=== PATIENT | female | born 1940 | race Caucasian/White ===

== ENCOUNTER 2023-06-27 08:08 | Inpatient (IN) | payer OTHER, SELFPAY ==
[2023-06-23 10:27] VITALS: BMI 25.0
--- NOTE | 2023-06-23 11:32 | HPS.HSE ---
Family Physician
-
Family Physician: Florecita Valentine
Chief Complaint
-
Paroxysmal atrial fibrillation.
History of Present Illness
The patient is an 83 year old female presenting today for paroxysmal atrial fibrillation. The patient reports intermittent heart palpitations and, more recently, chest pain by her pacemaker insertion site which radiates to her mid upper
back likely secondary to this diagnosis. She has undergone 4 previous cardioversions for her arrhythmia. She is on current pharmacological therapy with Metoprolol Succinate and Propranolol as needed. She takes Pradaxa for oral anticoagulation. She
notes that her current symptoms are greatly interfering with her activities of daily living and are overall impacting her quality of life. She is interested in pursuing a MARIS-guided cardioversion for further arrhythmia management. Once in sinus
rhythm, Dofetilide will be initiated and she will likely undergo an atrial fibrillation ablation in the near future. She denies any current complaints today such as chest pain or shortness of breath at rest, nausea, vomiting, diarrhea,
lightheadedness, dizziness, cough, sore throat, or fever.
Medical History
Past Medical History
Past Medical History: Reports Other
Additional Past Medical History:
1. Paroxysmal atrial fibrillation, status post cardioversion x4; pharmacological therapy with Metoprolol Succinate and Propranolol, oral anticoagulation with Pradaxa.
2. Hypertension.
3. Hyperlipidemia.
4. Coronary artery disease, status post PCI with drug eluting stents to RCA x4 2013.
5. Carotid artery stenosis, status post left carotid endarterectomy, 2016, and right carotid endarterectomy 2016.
6. Peripheral vascular disease.
7. Status post pacemaker insertion 2013.
8. Mild aortic stenosis.
9. Mild tricuspid regurgitation.
10. COPD per records.
11. Bilateral pleural effusion, 05/2022, status post thoracentesis.
12. Renal artery stenosis, status post multiple bilateral renal stents.
13. GERD.
14. Small hiatal hernia.
15. Colon polyps.
16. Primary biliary cirrhosis with mildly elevated AST.
17. 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
18. Right retinal artery occlusion, 09/2018, with residual right eye visual loss.
19. Restless leg syndrome.
20. Mild scoliosis.
21. Cervical degenerative disc disease with radiculopathy.
22. Hypothyroidism.
23. Left sided breast cancer, status post left mastectomy with sentinel node biopsy 12/2012.
24. Squamous cell carcinoma, status post multiple excisions.
25. Anemia of chronic disease.
26. Osteopenia.
27. COVID 19 pneumonia, 03/2022, requiring previous supplemental oxygen.
28. Remote history of tobacco abuse.
Past Surgical History: Reports Other
Additional Past Surgical History:
1. Cardioversion x4.
2. PCI with drug eluting stents to RCA x4.
3. Cardiac catheterization.
4. Pacemaker insertion.
5. Thoracentesis.
6. Left carotid endarterectomy.
7. Right carotid endarterectomy.
8. Left mastectomy with sentinel node biopsy.
9. Temporal artery biospy.
10. Appendectomy.
11. Bilateral tubal ligation.
12. Multiple bilateral renal stents.
13. Multiple squamous cell carcinoma excisions.
14. Bilateral cataract extraction.
15. Colonoscopy x3.
16. Endoscopy.
Social History
Tobacco: Former Smoker (She is a former up to 1 and 1/2 pack per day cigarette smoker who quit tobacco at 30 years old. )
Alcohol: Other (She drinks 1-2 glasses of wine most evenings with dinner. )
Living: Alone (She lives in a 2 story home with a first floor main setup. )
Family History
Family History: Not pertinent
Allergies / Home Medications
Allergy/Medication List:
Home medications:
1. Atorvastatin 80 mg p.o. every evening.
2. Calcium 1200 mg p.o. daily.
3. Cholecalciferol 50 mcg p.o. daily.
4. Pradaxa 150 mg p.o. twice a day.
5. Famotidine 40 mg p.o. twice a day.
6. Furosemide 20 mg p.o. daily.
7. Isosorbide Mononitrate 60 mg p.o. daily.
8. Levothyroxine 112 mcg p.o. daily.
9. Metoprolol Succinate 100 mg p.o. daily.
10. Nifedipine 60 mg p.o. twice a day.
11. Propranolol 20 mg p.o. every 4 hours as needed.
12. Ursodiol 600 mg p.o. daily.
13. Ursodiol 300 mg p.o. at bedtime.
Allergies: Adhesive. Amiodarone. Diltiazem. Hydralazine. Iodinated contrast. Omeprazole. Spironolactone.
Review of Systems
-
A 12 point ROS was completed and negative except as noted: Yes
Physical Exam
Vital Signs
Blood pressure 121/80. Heart rate 82. Respirations 18. Pulse ox 98% on room air.
Height 4 feet, 11 inches. Weight 56.2 kg. BMI 25.0.
Physical Exam
General: Well Developed, Well Nourished and No Apparent Distress
HEENT: NormoCephalic, Moist mucous membranes, Atraumatic and Other (Chronic right eye visual loss. )
Respiratory: Clear
Cardiac: Irregular Rhythm
GI: Soft, Non Tender and Non Distended
Musculoskeletal: Normal Gait & Station
Skin: Warm and Dry
Neuro: AO x 3 and Nonfocal/grossly intact
Laboratory Results
-
DIAGNOSTIC STUDIES as of 06/23/2023: Sodium 141. Potassium 3.7. BUN 22. Creatinine 0.8. Glucose 108. Calcium 9.3. AST 47. ALT 20. Albumin 4.3.
EKG 06/23/2023: Atrial fibrillation with occasional PVCs. T wave abnormality, consider inferolateral ischemia.
Echocardiogram 06/08/2022: Normal biventricular size and systolic function without regional wall motion�abnormality. Severe left atrial enlargement. Small pericardial effusion. Pleural effusion present. Compared to prior study of 05/24/2022, the
pericardial has decreased in size. The patient would undergo thoracentesis.
Impression/Plan
-
IMPRESSION/PLAN:
1. Paroxysmal atrial fibrillation: The patient is in need of a MARIS-guided cardioversion with Dr. Lanre Woodard on 06/27/2023. The benefits and risks of the procedure have been explained to the patient. The patient understands these risks and
wishes to proceed.
[2023-06-23 11:34] LABS: ALT (SGPT) 20 U/L (0-35); AST (SGOT) 47 U/L (14-36); Albumin 4.3 g/dl (3.5-5.0); Alkaline Phosphatase 135 U/L (38-126); Blood Urea Nitrogen 22 mg/dl (7-17); Calcium 9.3 mg/dl (8.4-10.2); Carbon Dioxide 29 mmol/L (22-30); Chloride 105 mmol/L (98-107); Estimated Creatinine Clearance 41 ml/min; Glucose 108 mg/dl (70-99); Potassium 3.7 mmol/L (3.5-5.1); Sodium 141 mmol/L (135-145); Total Bilirubin 0.8 mg/dl (0.2-1.3); Total Protein 8.4 g/dl (6.3-8.2); eGFR > 60.00
--- NOTE | 2023-06-27 09:40 | ITS.CL.CARDI ---
Application Support Lead - Cardioversion
Cardioversion
Procedure Report:
Date of Procedure:
Procedure: Cardioversion
Indication: Symptomatic atrial fibrillation
Performing Physician: Jordon Woodard MD
Technique: The patient was brought to the holding area. Signed informed consent was obtained. A time out was called and performed. The patient was anesthetized by the anesthesia service. Anticoagulation status was reviewed and appropriate. MARIS
revealed no LA appendage thrombus. R2 pads were placed anteriorly and posteriorly. A 200 J synchronized biphasic shock restored normal sinus rhythm without significant bradycardia. There were no complications.
Conclusion: Uncomplicated cardioversion from atrial fibrillation to sinus rhythm.
Recommendation: Routine post cardioversion care. Continue long-term anticoagulation. Admit for Tikosyn load.
--- NOTE | 2023-06-27 09:52 | W.CARD.TIKOS ---
Initiate Tikosyn
-
I verify that the patient has not taken any verapamil (Isoptin/Calan), ketoconazole (Nizoral), cimetidine (Tagamet), trimethoprim (Trimpex), trimethoprim/sulfamethoxazole (Bactrim), megesterol (Megace), prochlorperazine (Compazine),
hydrochlorothiazide (HCTZ), dolutegravir (Tivicay) or any Class I or Class III anti-arrhythmic within the last three days
AND
I verify that the patient has not taken amiodarone within the last THREE months, or that the patient's amiodarone plasma concentration is <0.3 mcg/mL.
Creatinine 0.8 mg/dL (0.6-1.0) 06/23/23 10:37
Estimated Creat Clear 41 ml/min 06/23/23 10:37
I have assessed the baseline QTc interval (using QT for heart rate less than 60 bpm) and deemed the patient is appropriate for Dofetilide therapy. I understand that Tikosyn is contraindicated if the QTc is >440msec (500msec in patients with
ventricular conduction abnormalities).
Baseline QTc (in msec): 440
Reason for Administration with Prolonged QTc: Paced Rhythm
Ordering Physician: Amarjit Metcalf
--- NOTE | 2023-06-27 10:11 | W.PN.CD ---
Addendum entered and electronically signed by Amarjit Metcalf MD 06/27/23 12:54:
I saw and examined the patient.
The LOG SORTING SUPERVISOR's note was reviewed and I agree with the note.
Comment: She tolerated MARIS/DCCV for her episode of persistent AFib. Will initiate dofetilide. Home after 6 doses.
Original Note:
Today's Communication / Plan
-
Dofetilide initiation per protocol
Impression / Plan
-
Background: Latha Godfrey is an 83-year-old female (known to Dr. Metcalf, her primary oracle technical developer), with paroxysmal and persistent atrial fibrillation (on Pradaxa, amiodarone intolerance), PPM, CVA, extensive PAD, CAD (prior complex RCA PCI), mild
aortic stenosis, hypertension, dyslipidemia, GERD, hypothyroidism, CKD3, biliary cirrhosis, and osteopenia who presented for MARIS/DCCV with dofetilide initiation.
Impression/Plan:
Paroxysmal atrial fibrillation
-She missed 2 doses of dabigatran, MARIS without DANIEL clot
-Successful orthodox to sinus rhythm by cardioversion today, 06/27/2023
-Oral Anticoagulation: Dabigatran 150 mg twice daily
-[id number]: Score 7 (HTN, age 75 or more, prior Stroke/TIA, Vascular disease, female gender)
-Initiation of dofetilide, this drug requires intensive monitoring, ECG per protocol
CAD, prior PCI, stable without chest pain
Mild aortic stenosis , peak/mean gradients across the valve are 20/13 mmHg by TTE 02/2022
Hypertension, follow with changes in medical therapy
Dyslipidemia, continue atorvastatin 80 mg daily
Hypothyroidism, on levothyroxine
CKD, stage III, follows with Dr. Morejon in the outpatient setting
Biliary cirrhosis, follows with GI in the outpatient setting
Subjective:
See scanned H&P
Physical Exam
Vital Signs/Labs
06/23/23 10:37
Physical Exam
Constitutional: No acute distress and Comfortable
EENT: Anicteric and Moist mucous membranes
Cardiovascular: Rhythm & rate is regular, S1S2 is normal and Murmur/rub/gallop absent
Respiratory: Respiratory effort normal and Lungs clear to auscul.
GI: Soft, Distention absent, Flat, Non tender and Normal bowel sounds
Neuro/Psych: AO x 3
Other: Skin (warm and dry)
Data Reviewed
-
Date of Service: June 27, 2023
EKG: Report Reviewed by me
Labs: Labs Reviewed by me
Old Records: Reviewed
[2023-06-27 10:45] VITALS: BP 125/90
[2023-06-27] MEDS: TIKOSYN 250 MCG PO ×2 (11:15→21:01)
--- NOTE | 2023-06-27 13:22 | CM ---
Reviewed chart. Met with Mrs. Godfrey to review discharge plans. She states prior to admission she resides alone in a three story home with five steps to enter. She states she has a first floor living arrangement. She states prior to admission she
was independent with ambulation and adls. She states she does not have any DME in the home. She states she has a prescription plan and uses [facility]. Telephone call to her insurance to check if Dofetilide 250 mcg bid is covered. Her co-pay for
one month supply is $ 12.21 and for a 90 day supply her co pay would be $42.96. Reviewed co-pay with her. She will need a three day script to go to [facility] so a supply can go home with her. Will also check with the [facility] to see
if they have Dofetilide in stock. Medical work-up in progress. The discharge plan is to return home when medically stable.
--- NOTE | 2023-06-27 13:32 | PTCARENOTE ---
Patient denies complaints; ambulatory in room. Tolerated first dose of Tikosyn. Monitor shows A Paced with Sinus Rhythm 70's.
[2023-06-27 16:00] VITALS: BP 113/50
[2023-06-27] MEDS: LIPITOR 40 MG PO (18:35)
[2023-06-27 18:43] VITALS: BP 130/69
[2023-06-27] MEDS: PRADAXA 150 MG PO (19:34)
[2023-06-27] MEDS: PROCARDIA XL (EXTENDED RELEASE) 60 MG PO (19:35)
[2023-06-27] MEDS: PEPCID 40 MG PO (19:37)
[2023-06-27 21:05] VITALS: BMI 25.0
[2023-06-27] MEDS: ACTIGALL 300 MG PO (22:08)
[2023-06-27] MEDS: TYLENOL 650 MG PO (22:13)
[2023-06-27 22:55] VITALS: BP 106/45
--- NOTE | 2023-06-27 23:36 | PTCARENOTE ---
Denied any complaints of pain or discomfort. QTc after 2nd dose of Tikosyn was 462. A-Paced on the monitor.
[2023-06-28] VITALS (7 sets, daily range): BP systolic 120–158; BP diastolic 56–71; BMI 25.0
[2023-06-28] MEDS: SYNTHROID 112 MCG PO (06:16)
[2023-06-28] MEDS: LASIX 20 MG PO (08:31)
[2023-06-28] MEDS: PRADAXA 150 MG PO ×2 (08:31→20:42)
[2023-06-28] MEDS: ACTIGALL 600 MG PO (08:31)
[2023-06-28] MEDS: TIKOSYN 250 MCG PO ×2 (08:32→20:42)
[2023-06-28] MEDS: TOPROL XL 50 MG PO (08:32)
[2023-06-28] MEDS: PROCARDIA XL (EXTENDED RELEASE) 60 MG PO ×2 (08:33→20:42)
[2023-06-28] MEDS: VITAMIN D3 (cholecalciferol) 50 MCG PO (08:33)
[2023-06-28] MEDS: PEPCID 40 MG PO ×2 (08:33→20:43)
[2023-06-28] MEDS: OSCAL CAL 500 1000 MG PO (08:40)
[2023-06-28] MEDS: IMDUR (EXTENDED RELEASE) 60 MG PO (08:40)
--- NOTE | 2023-06-28 09:56 | PTCARENOTE ---
Rec'd pt this shift awake and alert in bed. Pt A-paced on monitor, RA, lungs clear. Am meds given. Pt denies CP, denies sob. See worklist for VS/I and O and assessments.
--- NOTE | 2023-06-28 11:25 | W.PN.CD ---
Today's Communication / Plan
-
Continue Tikosyn with teletry/ekg.
Home after 6th dose
Impression / Plan
-
Background: Latha Godfrey is an 83-year-old female (known to Dr. Metcalf, her primary senior business development manager), with paroxysmal and persistent atrial fibrillation (on Pradaxa, amiodarone intolerance), PPM, CVA, extensive PAD, CAD (prior complex RCA PCI), mild
aortic stenosis, hypertension, dyslipidemia, GERD, hypothyroidism, CKD3, biliary cirrhosis, and osteopenia who presented for MARIS/DCCV with dofetilide initiation.
Impression/Plan:
Paroxysmal atrial fibrillation
-She missed 2 doses of dabigatran, MARIS without DANIEL clot
-Successful anglican to sinus rhythm by cardioversion today, 06/27/2023
-Oral Anticoagulation: Dabigatran 150 mg twice daily
-[id number]: Score 7 (HTN, age 75 or more, prior Stroke/TIA, Vascular disease, female gender)
-Initiation of dofetilide, this drug requires intensive monitoring, ECG per protocol
- Tolerating Tikosyn so far, EKG and tele good
CAD, prior PCI, stable without chest pain
Mild aortic stenosis , peak/mean gradients across the valve are 20/13 mmHg by TTE 02/2022
Hypertension, follow with changes in medical therapy
Dyslipidemia, continue atorvastatin 80 mg daily
Hypothyroidism, on levothyroxine
CKD, stage III, follows with Dr. Morejon in the outpatient setting
Biliary cirrhosis, follows with GI in the outpatient setting
Subjective:
No cp or dyspnea
Physical Exam
Vital Signs/Labs
Vital Signs
Temp Pulse Resp BP Pulse Ox
98.1 F 75 16 143/56 96
06/28/23 08:04 06/28/23 08:33 06/28/23 08:04 06/28/23 08:33 06/28/23 08:04
01/26/24 10:37
Physical Exam
Constitutional: No acute distress
EENT: Anicteric
Cardiovascular: Rhythm & rate is regular and Pedal edema is absent
Respiratory: Respiratory effort normal and Lungs clear to auscul.
GI: Soft and Distention absent
Neuro/Psych: AO x 3
Data Reviewed
-
Date of Service: June 28, 2023
--- NOTE | 2023-06-28 12:48 | CM ---
Telephone call to [facility] to check if Dofetilide 250 mcg are in stock. [facility] has it in stock. She will need a three day script for [facility] day supple home with her. Prior to admission she
resides alone in a three story home with five steps to enter. She has a first floor living arrangement. Prior to admission she was independent with ambulation and adls. She does not have any DME. She has a prescription plan and uses [facility].
Medial work-up in progress. The discharge plan is to return home when medically stable.
[2023-06-28] MEDS: LIPITOR 40 MG PO (18:15)
[2023-06-28] MEDS: LIPITOR PO (18:15)
[2023-06-28] MEDS: ACTIGALL 300 MG PO (20:43)
--- NOTE | 2023-06-29 07:45 | W.PN.CD ---
Addendum entered and electronically signed by Antelmo Pinto MD 06/29/23 08:28:
Discussed with Dr Metcalf, OK to give last dose early and will give last dose at around 6 pm this evening and d/c thereafter.
Original Note:
Today's Communication / Plan
-
Home after 6th dose, however, late dose at 9 pm and ECG thereafter may need to be tomorrow AM
Impression / Plan
-
Background: Latha Godfrey is an 83-year-old female (known to Dr. Metcalf, her primary fireman), with paroxysmal and persistent atrial fibrillation (on Pradaxa, amiodarone intolerance), PPM, CVA, extensive PAD, CAD (prior complex RCA PCI), mild
aortic stenosis, hypertension, dyslipidemia, GERD, hypothyroidism, CKD3, biliary cirrhosis, and osteopenia who presented for MARIS/DCCV with dofetilide initiation.
Impression/Plan:
Paroxysmal atrial fibrillation
-She missed 2 doses of dabigatran, MARIS without DANIEL clot
-Successful buddhist to sinus rhythm by cardioversion today, 06/27/2023
-Oral Anticoagulation: Dabigatran 150 mg twice daily
-[id number]: Score 7 (HTN, age 75 or more, prior Stroke/TIA, Vascular disease, female gender)
-Initiation of dofetilide, this drug requires intensive monitoring, ECG per protocol
- Tolerating Tikosyn so far, EKG and tele good
CAD, prior PCI, stable without chest pain
Mild aortic stenosis , peak/mean gradients across the valve are 20/13 mmHg by TTE 02/2022
Hypertension, follow with changes in medical therapy
Dyslipidemia, continue atorvastatin 80 mg daily
Hypothyroidism, on levothyroxine
CKD, stage III, follows with Dr. Morejon in the outpatient setting
Biliary cirrhosis, follows with GI in the outpatient setting
Subjective:
Feeling good today, home after 6th dose
Physical Exam
Vital Signs/Labs
Vital Signs
Temp Pulse Resp BP Pulse Ox
98 F 70 17 158/59 95
06/29/23 04:00 06/29/23 06:00 06/28/23 23:03 06/28/23 23:03 06/28/23 23:03
06/28/23 06/29/23 06/30/23
06:59 06:59 06:59
Actual Weight 123 lb 14.397 oz
06/23/23 10:37
Physical Exam
Constitutional: No acute distress
EENT: Anicteric
Cardiovascular: Rhythm & rate is regular and Pedal edema is absent
Respiratory: Respiratory effort normal and Lungs clear to auscul.
GI: Soft
Neuro/Psych: AO x 3
Data Reviewed
-
Date of Service: June 29, 2023
EKG: Tracing Personally Visualized and interpreted
[2023-06-29 08:00] VITALS: BMI 25.0
[2023-06-29] MEDS: SYNTHROID 112 MCG PO (08:21)
[2023-06-29 08:24] VITALS: BP 146/60
[2023-06-29] MEDS: TIKOSYN 250 MCG PO ×2 (08:58→18:02)
[2023-06-29] MEDS: LASIX 20 MG PO (08:58)
[2023-06-29] MEDS: ACTIGALL 600 MG PO (08:58)
[2023-06-29] MEDS: PEPCID 40 MG PO ×2 (08:58→19:55)
[2023-06-29] MEDS: PRADAXA 150 MG PO ×2 (08:58→19:52)
[2023-06-29] MEDS: PROCARDIA XL (EXTENDED RELEASE) 60 MG PO ×2 (08:58→19:52)
[2023-06-29] MEDS: OSCAL CAL 500 1000 MG PO (08:59)
[2023-06-29] MEDS: TOPROL XL 50 MG PO (09:00)
[2023-06-29] MEDS: VITAMIN D3 (cholecalciferol) 50 MCG PO (09:00)
[2023-06-29] MEDS: IMDUR (EXTENDED RELEASE) 60 MG PO (09:01)
--- NOTE | 2023-06-29 09:07 | CM ---
Reviewed chart. Met with Mrs. Godfrey to review discharge plans. She states she maybe able to go home soon. Reviewed with her the three day supply of Dofetilide to go home with her. Will need a three day script to go to [facility]. Prior to
admission she resides alone in a three story home with five steps to enter. She has a first floor set-up. Prior to admission she was independent with ambulation and adls. She does not have any DME in the home. She has a prescription plan and uses
[facility]. Medical work-up in progress. The discharge plan is to return home when medically stable.
[2023-06-29 12:00] VITALS: BP 106/49
[2023-06-29 15:27] VITALS: BP 126/62
--- NOTE | 2023-06-29 15:30 | W.DS.TRANS ---
DC Summary - Manager Rental
-
Discharge Instructions:
Sleep Apnea Risk Low
Discharge Diagnosis/Procedures Atrial fibrillation
Procedure: MARIS/cardioversion
Antiarrhythmic medication initiation (Dofetilide
)
Diet Low Cholesterol,2 Gram Sodium
Activity As tolerated
Driving Restrictions As prior to admission
Instructions:
Stand-Alone Forms:
Changes to Home Medications: Yes
Discharge Medications:
DC Medications w/original date entered in [employer]
nifedipine 60 mg tablet,extended release 60 mg PO BID Blood pressure 06/06/16
ursodiol 300 mg capsule 300 mg PO HS Urinary issue 01/23/17
ursodiol 300 mg capsule 600 mg PO DAILY Urinary issue 01/23/17
famotidine 40 mg tablet 40 mg PO BID Gastrointestinal issue 06/06/21
dabigatran etexilate 150 mg capsule (Pradaxa) 150 mg PO BID #60 caps 08/04/21
isosorbide mononitrate 60 mg tablet,extended release 24 hr 60 mg PO DAILY CHEST PAIN 05/18/22
furosemide 20 mg tablet 20 mg PO DAILY edema #30 tabs 05/28/22
metoprolol succinate 100 mg tablet,extended release 24 hr 100 mg PO DAILY #30 tabs 05/28/22
calcium 600 mg capsule 1,200 mg PO DAILY Supplement 06/21/23
cholecalciferol (vitamin D3) 50 mcg (2,000 unit) capsule (Vitamin D3) 50 mcg PO DAILY Supplement 06/21/23
levothyroxine 112 mcg tablet 112 mcg PO DAILY Thyroid 06/21/23
propranolol 20 mg tablet 20 mg PO Q4HPRN PRN a fib 06/23/23
atorvastatin 40 mg tablet 40 mg PO QPM 06/29/23
dofetilide 250 mcg capsule 250 mcg PO Q12 #60 caps 06/29/23
Home Medication Changes
dofetilide added
Pending Results: No
[2023-06-29] MEDS: LIPITOR 40 MG PO (18:02)
--- NOTE | 2023-06-29 19:14 | PTCARENOTE ---
Received 6th dose of Tikosyn at 6pm as ordered. EKG due at 1999.
[2023-06-29 19:30] VITALS: BP 136/76
[2023-06-29] MEDS: ACTIGALL 300 MG PO (19:52)
--- NOTE | 2023-06-29 20:15 | PTCARENOTE ---
1999 EKG performed for QTC monitoring s/p Tikosyn loading, QTC 486. freight caller glass etcher helper notified via [employer] a for d/c. Paperwork printed, signed, IV taken out and awaiting ride from daughter at this time.
== END 2023-06-29 20:30 | disposition home or self-care (01) | DRG 310 ==
LOC: IVU 08:08
PROVIDERS: ADMITTING PHYSICIAN Internal Medicine Cardiovascular Disease; ATTENDING PHYSICIAN Internal Medicine Cardiovascular Disease; FAMILY PHYSICIAN Family Medicine
PROC: 3E053RZ Introduction of Antiarrhythmic into Peripheral Artery, Percutaneous Approach (ICD-10-PCS; 2023-06-27)
PROC: B24BZZ4 Ultrasonography of Heart with Aorta, Transesophageal (ICD-10-PCS; 2023-06-27)
PROC: 5A2204Z Restoration of Cardiac Rhythm, Single (ICD-10-PCS; 2023-06-27)
DX: I48.19 Other persistent atrial fibrillation (principal); Z95.0 Presence of cardiac pacemaker; E78.5 Hyperlipidemia, unspecified; I12.9 Hypertensive chronic kidney disease with stage 1 through stage 4 chronic kidney disease, or unspecified chronic kidney disease; N18.30 Chronic kidney disease, stage 3 unspecified; I25.10 Atherosclerotic heart disease of native coronary artery without angina pectoris; I73.9 Peripheral vascular disease, unspecified; K21.9 Gastro-esophageal reflux disease without esophagitis; Z87.891 Personal history of nicotine dependence; D63.1 Anemia in chronic kidney disease; Z86.73 Personal history of transient ischemic attack (TIA), and cerebral infarction without residual deficits; J44.9 Chronic obstructive pulmonary disease, unspecified; E03.9 Hypothyroidism, unspecified; Z79.01 Long term (current) use of anticoagulants
CPT/HCPCS: 36415; 80053; 92960; 93005; 93312; 93320; 93325

== ENCOUNTER 2023-08-21 15:12 | Outpatient (RCR) | payer OTHER, SELFPAY | END 2023-08-21 23:59 | disposition home or self-care (01) | LOC: RPT 15:12 | PROVIDERS: ATTENDING PHYSICIAN Family Medicine | DX: R53.81 Other malaise (principal); Z73.6 Limitation of activities due to disability; R26.2 Difficulty in walking, not elsewhere classified; M62.81 Muscle weakness (generalized); R26.81 Unsteadiness on feet; M25.512 Pain in left shoulder; M25.561 Pain in right knee | CPT/HCPCS: 97110; 97112; 97163 ==

== ENCOUNTER → 2023-08-24 10:30 | Outpatient (REF) | payer OTHER, SELFPAY | LOC: RAD 10:30 | PROVIDERS: ATTENDING PHYSICIAN Internal Medicine Gastroenterology; FAMILY PHYSICIAN Family Medicine | DX: M85.80 Other specified disorders of bone density and structure, unspecified site (principal); K74.3 Primary biliary cirrhosis | CPT/HCPCS: 76700; 77080 ==

== ENCOUNTER 2023-09-26 17:11 | Outpatient (RCR) | payer OTHER, SELFPAY | END 2023-09-26 23:59 | disposition home or self-care (01) | LOC: RPT 17:11 | PROVIDERS: ATTENDING PHYSICIAN Family Medicine | DX: R26.2 Difficulty in walking, not elsewhere classified (principal); R53.81 Other malaise; M62.81 Muscle weakness (generalized); Z73.6 Limitation of activities due to disability | CPT/HCPCS: 97010; 97110; 97112 ==

== ENCOUNTER → 2023-10-18 15:21 | Outpatient (REF) | payer OTHER, SELFPAY | LOC: HWRAD 15:21 | PROVIDERS: ATTENDING PHYSICIAN Family Medicine | DX: S09.90XA Unspecified injury of head, initial encounter (principal); Z79.01 Long term (current) use of anticoagulants; R07.81 Pleurodynia; M54.2 Cervicalgia; M54.9 Dorsalgia, unspecified | CPT/HCPCS: 70450; 71111; 72050; 72072 ==

== ENCOUNTER → 2023-11-06 10:38 | Outpatient (REF) | payer OTHER, SELFPAY | LOC: RAD 10:38 | PROVIDERS: ATTENDING PHYSICIAN Surgery Vascular Surgery; FAMILY PHYSICIAN Family Medicine | DX: I65.23 Occlusion and stenosis of bilateral carotid arteries (principal) | CPT/HCPCS: 70496; 70498; Q9967 ==

== ENCOUNTER → 2023-11-21 13:35 | Outpatient (REF) | payer OTHER, SELFPAY | LOC: RAD 13:35 | PROVIDERS: ATTENDING PHYSICIAN Surgery Vascular Surgery; FAMILY PHYSICIAN Family Medicine | DX: I73.9 Peripheral vascular disease, unspecified (principal) | CPT/HCPCS: 93922; 93925 ==

== ENCOUNTER 2023-12-06 19:13 | Observation (INO) | payer OTHER, SELFPAY ==
[2023-12-06] VITALS (16 sets, daily range): BP systolic 96–154; BP diastolic 53–106; PULSE 69–75
[2023-12-06 14:16] LABS: Urine Albumin Negative (Neg - Trace); Urine Bilirubin Negative (Negative); Urine Character Clear (Clear); Urine Color Yellow; Urine Glucose Negative (Negative); Urine Ketone Negative (Negative); Urine Leukocyte Trace (Negative); Urine Nitrite Negative (Negative); Urine Occult Blood Negative (Negative); Urine Urobilinogen Negative (Neg - 1+)
--- NOTE | 2023-12-06 14:17 | ED.GENMED ---
History of Present Illness
<Moriah Garcia NP - Last Filed: 12/06/23 20:27>
General
Chief Complaint: Dizziness
Source: patient
Exam Limitations: none
Time Seen by Provider: 12/06/23 13:58
Nursing documentation reviewed up to this point in time: agreed with
History of Present Illness
History of Present Illness:
Patient to ED with complaint of sudden onset brief dizziness this AM. Afterwards she felt like her legs were both weak and heavy. SHe had another brief episode of dizziness and then noted difficulty walking due to weakness in her legs. Reports
RLE is worse than left. Still reports weakness but is improved from onset. NO fever/chills, recent illness. Denies headache, vision changes. Brought to ED by daughter for eval.
Past History
<Moriah Garcia NP - Last Filed: 12/06/23 20:27>
Past History
ED Past Medical History: Arrthythmia (Atrial fib), CAD, GERD, HTN, Hypercholesterolemia, Hypothyroidism and Other (Gastritis, breast cancer with left mastectomy)
ED Past Surgical History: Other (Mastectomy L)
Social History
Tobacco: Former smoker
Alcohol: Daily
Drug: None
Personal: Other
Living: alone
Employment: Retired
Family History
Family History: Other
Review of Systems
<Moriah Garcia CRIB CLERK - Last Filed: 12/06/23 20:27>
Review of Systems
Allergies reviewed?: Yes
All Other Systems: ROS reviewed and negative except as documented in HPI and ROS
Constitutional: Reports no symptoms
EENT: Reports no symptoms
Respiratory: Reports no symptoms
Cardiac: Reports no symptoms
ABD/GI: Reports no symptoms
Musculoskeletal: Reports no symptoms
Skin: Reports no symptoms
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
Psychiatric: Reports no symptoms
Phy Exam
<Moriah Garcia NP - Last Filed: 12/06/23 20:27>
General Physical Exam
General Presentation: well appearing
General age: appears stated age
General Skin: warm
General Habitus: normal
Cardiovascular Exam
Cardiovascular Exam: regular rate/rhythm and no edema
Pulmonary Exam
Pulmonary Exam: lungs clear and no respiratory distress
Gastrointestinal Exam
Gastrointestinal Exam: normal bowel sounds and non tender
Neurological Exam
Neurological Exam: alert, oriented x3, CN II-XII intact, no motor deficits, no sensory deficits and speech normal
NIH Stroke Score
Level of Consciousness: 0 - Alert
LOC questions: 0-Answers both correctly
LOC Commands: 0-Performs both correctly
Best Gaze: 0-Normal
Visual Marques: 0=Normal, no visual loss
Facial palsy: 0=Normal, symmetrical
Motor - Right Arm: 0=No drift 10 seconds
Motor - Left Arm: 0=No drift 10 seconds
Motor - Right Le-Drift < 5 seconds
Motor - Left Le-No drift 5 seconds
Limb Ataxia: 0-Absent
Sensation: 0-Normal
Best Language: 0-No aphasia
Dysarthria: 0-Normal
Extinction and Inattention: 0-No abnormality
Total Score:: 1
Musculoskeletal Exam
Musculoskeletal Exam: full ROM and neuro vasc intact
Skin Exam
Skin Exam: normal color, warm/dry and no rash
Psychiatric Exam
Psychiatric Exam: normal mood/affect
<Amarjit Gallardo MD - Last Filed: 12/06/23 14:36>
NIH Stroke Score
Total Score:: 1
Course
<Moriah Garcia NP - Last Filed: 12/06/23 20:27>
Orders/Labs/Results
Orders:
Orders
12/06/23 13:37
ECG [Electrocardiogram (*1)] Urgent
Reason for Study: Vertigo / Dizzy
EKG- Treatment ONCE
12/06/23 14:09
UA Reflex to Culture [Urinalysis Reflex To Culture] Urgent
Date Specimen was Collected: 12/06/23
Time Specimen was Collected: 14:00
Urine Microscopic Reflex Cult Urgent
12/06/23 14:14
Cardiovascular Evaluation Urgent
Complete Blood Count/With Diff Urgent
Comprehensive Metabolic Panel Urgent
Glycohemoglobin (HgbA1c) Urgent
12/06/23 14:29
CT Head W/o Iv Contrast Urgent
Comment:
Reason For Exam: R weakness
12/06/23 14:36
Interrogate Pacemaker- Treatment ONCE
12/06/23 Dinner
Cholesterol Lowering
At Your Request: Full Participation
12/06/23 15:25
Orthostatic Vital Signs As Directed
Orthostatic VS Frequency: BID
Comment: please wait 3 minutes after each position change before checking bp
12/06/23 16:03
Add On- LAB Routine
Tests Added?: folate, ferritin, TSH reflex, B12, lipid panel, hbA1c
12/06/23 16:41
Ferritin Urgent
Folate Urgent
TSH Reflex To Free T4 Urgent
Vitamin B12 Urgent
12/06/23 18:33
Admit/Transfer Patient As Directed
Co-Sign Provider:
Level of Care: Observation services
Assign to:: Telemetry
Physician / Group: aris milan
Diagnosis: dizziness lef weakness concern tis vs orthostasis
Reason for Telemetry: CVA/TIA
Date to Stop Telemetry: 12/09/23
Time to Stop Telemetry: 11:00
Reason for Hospitalization: dizziness lef weakness concern tis vs orthostasis
Code Status As Directed
Resuscitation Status: Full Code
NEUROLOGY CONSULT Routine
Consulting Provider: Xavier Bonilla
Was physician already notified: Yes
Reason for consult: leg weakness
12/06/23 20:00
Dabigatran Etexilate Mesylate [Pradaxa] 150 mg PO BID
Dofetilide [Tikosyn] 250 mcg PO Q12
12/09/23 11:00
DC Protocol for Telemetry ONCE
Abnormal Lab Results
12/06/23 12/06/23
14:09 14:14
MCHC 32.9 L g/dL
(33.0-37.0)
RDW 14.6 H %
(11.5-14.5)
Absolute Monos (auto) 1.8 H 10^3/uL
(0.1-0.6)
Lymphocytes % 17.7 L %
(20.5-51.1)
Monocytes % 18.1 H %
(1.7-9.3)
BUN 22 H mg/dl
(7-17)
Glucose 107 H mg/dl
(70-99)
AST 39 H U/L
(14-36)
Alkaline Phosphatase 168 H U/L
(38-126)
Leukocyte Esterase Rfl Trace A
(Negative)
12/06/23 14:14
12/06/23 14:14
Vital Signs
Initial and Last Documented VS:
Initial Vital Signs
Temp Pulse Resp BP Pulse Ox
98.3 F 74 18 136/106 96
12/06/23 13:31 12/06/23 13:31 12/06/23 13:31 12/06/23 13:31 12/06/23 13:31
Last Documented Vital Signs
Temp Pulse Resp BP Pulse Ox
98.3 F 71 15 154/54 96
12/06/23 13:31 12/06/23 20:00 12/06/23 20:00 12/06/23 20:00 12/06/23 20:00
<Amarjit Gallardo MD - Last Filed: 12/06/23 14:36>
Orders/Labs/Results
Orders:
Orders
12/06/23 13:37
ECG [Electrocardiogram (*1)] Urgent
Reason for Study: Vertigo / Dizzy
EKG- Treatment ONCE
12/06/23 14:09
UA Reflex to Culture [Urinalysis Reflex To Culture] Urgent
Date Specimen was Collected: 12/06/23
Time Specimen was Collected: 14:00
Urine Microscopic Reflex Cult Urgent
12/06/23 14:14
Cardiovascular Evaluation Urgent
Complete Blood Count/With Diff Urgent
Comprehensive Metabolic Panel Urgent
Glycohemoglobin (HgbA1c) Urgent
12/06/23 14:29
CT Head W/o Iv Contrast Urgent
Comment:
Reason For Exam: R weakness
12/06/23 14:36
Interrogate Pacemaker- Treatment ONCE
12/06/23 Dinner
Cholesterol Lowering
At Your Request: Full Participation
12/06/23 15:25
Orthostatic Vital Signs As Directed
Orthostatic VS Frequency: BID
Comment: please wait 3 minutes after each position change before checking bp
12/06/23 16:03
Add On- LAB Routine
Tests Added?: folate, ferritin, TSH reflex, B12, lipid panel, hbA1c
12/06/23 16:41
Ferritin Urgent
Folate Urgent
TSH Reflex To Free T4 Urgent
Vitamin B12 Urgent
12/06/23 18:33
Admit/Transfer Patient As Directed
Co-Sign Provider:
Level of Care: Observation services
Assign to:: Telemetry
Physician / Group: aris milan
Diagnosis: dizziness lef weakness concern tis vs orthostasis
Reason for Telemetry: CVA/TIA
Date to Stop Telemetry: 12/09/23
Time to Stop Telemetry: 11:00
Reason for Hospitalization: dizziness lef weakness concern tis vs orthostasis
Code Status As Directed
Resuscitation Status: Full Code
NEUROLOGY CONSULT Routine
Consulting Provider: Xavier Bonilla
Was physician already notified: Yes
Reason for consult: leg weakness
12/06/23 20:00
Dabigatran Etexilate Mesylate [Pradaxa] 150 mg PO BID
Dofetilide [Tikosyn] 250 mcg PO Q12
12/09/23 11:00
DC Protocol for Telemetry ONCE
Abnormal Lab Results
12/06/23 12/06/23
14:09 14:14
MCHC 32.9 L g/dL
(33.0-37.0)
RDW 14.6 H %
(11.5-14.5)
Absolute Monos (auto) 1.8 H 10^3/uL
(0.1-0.6)
Lymphocytes % 17.7 L %
(20.5-51.1)
Monocytes % 18.1 H %
(1.7-9.3)
BUN 22 H mg/dl
(7-17)
Glucose 107 H mg/dl
(70-99)
AST 39 H U/L
(14-36)
Alkaline Phosphatase 168 H U/L
(38-126)
Leukocyte Esterase Rfl Trace A
(Negative)
12/06/23 14:14
12/06/23 14:14
Vital Signs
Initial and Last Documented VS:
Initial Vital Signs
Temp Pulse Resp BP Pulse Ox
98.3 F 74 18 136/106 96
12/06/23 13:31 12/06/23 13:31 12/06/23 13:31 12/06/23 13:31 12/06/23 13:31
Last Documented Vital Signs
Temp Pulse Resp BP Pulse Ox
98.3 F 71 15 154/54 96
12/06/23 13:31 12/06/23 20:00 12/06/23 20:00 12/06/23 20:00 12/06/23 20:00
<Moriah Garcia NP - Last Filed: 12/06/23 20:27>
*Critical Care Note
Total Time (30-74mins, 75-104mins- exclusive of procedures): Not Applicable
<Moriah Garcia NP - Last Filed: 12/06/23 20:27>
Update Note
Update Note:
Patient to ED wtih complaint of 2 episodes of brief dizziness associated with weakness to BLE R>L. +drift RLE on initial exam. Having difficulty walking initially. History ov CVA in past. Symptoms began to resolve on arrival to ED and is now
symptom free. CT and labs reviewed. Case discussedwith Dr. Gallardo who also evaluated this patient. Patient also seen by Dr. Bonilla, no CVA. Normal pressure hyrdrocephaly. Patient continues to be unsteady with gait. Will admit to hospitalist for
TIA, observation.
ED Attending Note
<Moriah Garcia NP - Last Filed: 12/06/23 20:27>
-
Portions of this chart may have been created with voice recognition software.� Occasional wrong word or��sound alike� substitutions may have occurred due to the inherent limitations of voice recognition software.
<Amarjit Gallardo MD - Last Filed: 12/06/23 14:36>
ED Attending Note
Patient seen and examined by attending physician: Yes
ED Attending Note:
I have seen and evaluated the patient with a [id number] encounter. I have spoken to the advance practicer provider and involved in the medical history, the physical exam, medical decision making.
Evaluation and management service: agree unless noted differently below.
Results interpretation: agree unless noted differently below.
Focused HPI: 83-year-old female with a past medical history as documented notable for atrial fibrillation on Pradaxa, hypertension, hyperlipidemia, TIA/CVA, COPD who presents to the emergency room with her daughter for evaluation of dizziness and
leg weakness. Patient reports that she woke up this morning and was in her normal state of health. She says that she went downstairs around 8:30 AM to make herself some coffee. She says that while she was making herself coffee she started to feel
dizzy/off balance. She says that this feeling was quite intense and lasted for about 30 seconds and then seemed to resolve. She says that she sat down and was doing some work (she says organizing manuscript) and was sitting there for about 2 hours
and when she went to get up she felt that her legs were weak�at first she felt both legs were weak but then she felt symptoms seem to be much worse on the right side. She says dizziness returned and she once felt very off balance. Symptoms were
not improving and ultimately she called EMS to come to the hospital for assessment. She has not noticed any weakness or numbness in the arms. She does have some chronic loss of vision in the right eye from prior stroke/arterial occlusion but no
acute change in her vision. No speech change or facial droop noted. She denies any headache. Denies any palpitations or chest pain. She does note that she had recent workup for vascular disease with Dr. Veloz which included a CT of the neck that
showed complete occlusion of her right carotid artery.
Physical exam: Awake alert oriented x 3 and quite pleasant. Mildly hypertensive but otherwise normal vitals. She has vision loss right eye left lower visual field which she says is chronic, visual marques otherwise intact. Pupils equal round and
reactive to light bilaterally. Extraocular movements intact. Cranial nerves otherwise intact 2 through 12. She has no limb ataxia. Speech is fluid with no dysarthria or aphasia. She does have some pronator drift in the right upper extremity and
has some slight drift in the right lower extremity as well.
Medical Decision Makin-year-old female presents for evaluation of dizziness and leg weakness as described above. Onset at 8:30 AM. Hypertensive but otherwise normal vitals, exam as above. NIH stroke scale would be 2. Stroke alert called.
Will send for CT head. Check labs including a CBC and a CMP. Check an EKG. Would not be a candidate for TNK as she is both on anticoagulants (Pradaxa) and outside window for TNK. Neurology at bedside assessing. Anticipate admission with concern
for acute CVA.
Discharge Plan
Departure
Patient Disposition: Admit
Date of Disposition: 12/06/23
Time of Disposition: 17:40
Presentation/result/management discussed w/ accepting MD/DO: Hospitalist
Condition: Fair
Covid-19: Not Applicable
Discharge Problem:
TIA (transient ischemic attack)
Interventions
Interventions:
*Risk Screen - Suicide Last Done: 12/06/23 13:53
*General Assessment Last Done: 12/06/23 13:53
*Neglect/Abuse Screening Last Done: 12/06/23 13:53
ED- Fall Risk Assessment Last Done: 12/06/23 13:53
*ED COVID-19 Vaccine History Last Done: 12/06/23 13:53
ED- Neurological Assessment Last Done: 12/06/23 14:28
ED- Cardiac Assessment Last Done: 12/06/23 13:53
ED Swallowing Screen Last Done: 12/06/23 17:20
[2023-12-06 14:35] LABS: % Basophils 1.1 % (0-2); % Eosinophils 1.6 % (0-6); % Immature Granulocytes 0.3 % (0-0.5); % Lymphocytes 17.7 % (20.5-51.1); % Monocytes 18.1 % (1.7-9.3); % Neutrophils 61.2 % (42.2-75.2); Absolute Basophils 0.1 10^3/uL (0-0.2); Absolute Eosinophils 0.2 10^3/uL (0-0.7); Absolute Lymphocytes 1.7 10^3/uL (1.2-3.4); Absolute Monocytes 1.8 10^3/uL (0.1-0.6); Hematocrit 37.7 % (37.0-47.0); Hemoglobin 12.4 g/dL (12.0-16.0); Mean Corp Hgb Conc. 32.9 g/dL (33.0-37.0); Mean Corpuscular Hgb 29.1 pg (27.0-31.0); Mean Corpuscular Volume 88.5 fL (81.0-99.0); Mean Platelet Volume 10.3 fL (7.4-10.4); Nucleated Red Blood Cells % 0 %; Platelet Count 269 10^3/uL (130-400); Red Blood Cell Count 4.26 10^6/uL (4.20-5.40); Red Cell Dist. Width 14.6 % (11.5-14.5); White Blood Cell Count 9.8 10^3/uL (4.8-10.8)
[2023-12-06 14:41] LABS: Urine Red Blood Cell 0-2 /HPF (0-2); Urine Urothelial Cell 0-2 /LPF (FEW); Urine White Cell 0-2 /HPF (0-5)
[2023-12-06 15:24] LABS: ALT (SGPT) 17 U/L (0-35); AST (SGOT) 39 U/L (14-36); Albumin 4.5 g/dl (3.5-5.0); Alkaline Phosphatase 168 U/L (38-126); Blood Urea Nitrogen 22 mg/dl (7-17); Calcium 10.1 mg/dl (8.4-10.2); Carbon Dioxide 27 mmol/L (22-30); Chloride 103 mmol/L (98-107); Glucose 107 mg/dl (70-99); Potassium 4.2 mmol/L (3.5-5.1); Sodium 141 mmol/L (135-145); Total Bilirubin 0.7 mg/dl (0.2-1.3); eGFR > 60.00
--- NOTE | 2023-12-06 15:25 | CON.NEURO4 ---
Documented by User: Allyson Laws NP 12/06/23 16:05
Consultation - Neurology 4
-
CONSULTING PHYSICIAN: Xavier Bonilla MD
REFERRING PHYSICIAN: ER/JANET Crow
DICTATED BY: JANET Wilkins
DATE/TIME OF REQUEST: 12/06/23
DATE/TIME OF CONSULTATION: 12/06/23
Reason for Consultation: Stroke Alert
History of Present Illness:
This is an 83-year-old left-handed female who has presented to the hospital with report of dizziness and bilateral leg heaviness. Patient was previously evaluated by our inpatient Neurology service in May 2021 as a stroke alert for report of
headache, left-sided weakness, slurred speech, and left facial drooping. She was on apixaban at that time and her dose had been decreased to 2.5mg BID one month earlier. CT head on 06/06/21 was suggestive of a small subacute right parietal lobe
ischemic infarct. She had no residual deficits following that event and was continued on Eliquis. She presented here again on 07/31/21 with report of severe dysarthria and left-sided weakness. MRI brain was obtained on 08/03/21 and demonstrates multiple
subacute infarcts in the right frontoparietal junction. She was switched from Eliquis to Pradaxa at that time. She is still followed by our outpatient Neurology service and she is followed by Vascular Surgery as an outpatient for chronic R ICA
occlusion that has been stable.
From last outpatient evaluation by Neurology JANET Zamora on 04/10/23:
'Patient is an 82 year old woman left handed woman with history of atrial fibrillation, small right MCA ischemic stroke occuring on Apixaban therapy subsequently switched to Dabigatran here for neurology follow up.�������
She relates she was diagnosed with left forearm and hand symptoms due to cervical radiculopathy.�������
She reports she feels unsteady with her feet and body. She thinks this goes back about 1.5-2 years. She reports this seemed to be worse after being in the hospital for pneumonia. Physical therapists thought maybe she should see a neurologist.�������
She reports difficulty with tremors with action in the upper extremities. Doesn't think it has been a detention problem but probably going on for about 1 year. Notices mostly the left arm. Seems worse in the morning.�She had a decrease in
Amiodarone to half of the dose and saw a big improvement in tremors, not gone but improved. She thinks has been on Amiodarone for at least 6 months and maybe longer.�������No family history of Parkinson's or tremor to her knowledge. She doesn't
think a small glass of alcohol will make the tremor worse or better.�������Handwriting and typing are more difficult with the tremors.�������No noticeable changes in sense of smell, no dream re-enactment behavior.�������No paresthesias in the feet,
does physical therapy, no walking aides, PT had suggested she use a cane.�������
(04/10/2023)�������Pt seen in the office today. She has been doing well since her last appointment. She did have CTA of the neck completed as recommended by Dr. Veloz which she follows up with for carotid stenosis. No new stroke symptoms. She
continues to take Pradaxa and atorvastatin. She has no new stroke symptoms. She does need clearance for dental surgery.'
This morning (12/06/23), patient reports that she initially felt in her usual state when she work up at 0830. She proceeded to go downstairs to the kitchen to make coffee, and reports that while standing making coffee she felt dizzy, like she
couldn't maintain her balance. She sat down and reports this sensation resolved in less than one minute. She sat down to do work at her desk and two hours later reports that she stood up and turned, felt a whoosh of dizziness, and both of her legs
suddenly felt very weak and heavy and she felt off-balance. She called 911 and reports that when EMS arrived, her left leg felt improved but her right leg still felt heavy. On arrival in the ER, she was noted to have RUE and RLE drift and a stroke
alert was called. On Neurology evaluation she reports feeling back to normal except for bilateral leg heaviness when she ambulates. NIHSS is now a 0. CT head was obtained and is negative for any acute abnormalities. Patient denies any headache, new
vision changes (chronic low vision right eye), speech/swallow difficulty, numbness, focal weakness, chest pain, palpitations, and shortness of breath. She denies any recent illness or fever. She lives alone and walks without an assistive device. She
does note the her HS metoprolol dose was increased by 25mg in the past 1-2 weeks. She denies missing any doses of her Pradaxa, her last dose was this morning. She is not a candidate for TNK/IAT due to NIHSS 0, last dose of Pradaxa this morning, and
low concern for TIA/stroke.
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
Surgical History: Left mastectomy
Family History: Reviewed and noncontributory.
Social History: Former smoker. Daily alcohol. Denies illicit drug use.
Allergies: Iodinated contrast, diltiazem, amiodarone, omeprazole, spironolactone, hydralazine, adhesive.
Home Medications: See below.
Review of Symptoms:
Patient denies any fever, headache, chest pain, shortness of breath, GI or symptoms.
�Per the HPI.�All systems are reviewed negative except above.
Physical Exam:
The patient is afebrile, abdomen is nondistended, breathing is unlabored, skin is warm and dry, no edema.
NIH Stroke Scale:
I performed the NIH stroke scale on the patient on 12/06/23 at 1500. The patient scored 0 points on the NIH stroke scale assessment, which were assigned as follows: See below.
Neurologic Examination:
The patient is awake, alert and oriented x 3. She is able to follow commands and answer questions appropriately. There is no aphasia or dysarthria. On cranial nerve assessment, pupils are 3 mm bilateral, round and reactive to light and
accommodation. Visual ayala are full. Extraocular movements are intact. Facial sensations are intact and bilaterally symmetrical, there is no facial asymmetry. Hearing is intact bilaterally to normal conversation volume. Tongue palate and uvula
are midline. Sternocleidomastoid strengths are full bilaterally. Motor strengths are 5/5 bilateral upper and lower extremities on medical research Elim Ira scale. There is no drift or involuntary movement noted. Deep tendon reflexes are 1+ bilateral
upper and lower extremities and Babinski is absent bilaterally. Sensations of touch, temperature and vibration are intact and bilaterally symmetrical. There was no extinction noted on double simultaneous stimulation. Coordination is intact by finger
to nose bilaterally. Gait is steady.
Lab Results: See below.
Neuro Imaging:
1. CT Head 12/06/23: There are no acute intracranial abnormalities. There is moderate diffuse cortical atrophy with moderate nonspecific white matter changes as described above. There are old bilateral frontal infarcts and a 1.5 cm lacunar infarct on
the right as detailed above.
Differentials for the patient's presentation include:
1. Orthostatic hypotension possibly contributing to symptoms.
2. Ventricles appear enlarged on CT head imaging, NPH possibly contributing to gait abnormality.
3. TIA possible but less likely given bilateral leg weakness.
4. Chronic R ICA occlusion.
5. Afib on Pradaxa, hx R MCA ischemic stroke.
Patient has the following risk factors for their symptoms:
IV Tenecteplase/IAT candidacy: Not a candidate due to NIHSS 0 and last dose of Pradaxa this morning.
Recommendations:
-Continue home Pradaxa 150mg BID.
-Check orthostatic vital signs.
-Outpatient evaluation for NPH.
-PT/OT evaluations.
-Provide patient with a stroke education packet.
-NIHSS and neurological checks per unit guidelines.
-LDL goal <70. Lipid panel pending. Continue home atorvastatin 40mg daily.
-Goal normoglycemia, hbA1c pending.
-Patient has an outpatient appt with Neurology Dr. Freitas on 12/13/23.
Discussed patient care with: Dr. Bonilla, the patient
Vital Signs and Labs
-
Vital Signs and Labs:
Vital Signs
Temp Pulse Resp BP Pulse Ox
98.3 F 71 21 139/68 96
12/06/23 13:31 12/06/23 15:15 12/06/23 15:15 12/06/23 15:00 12/06/23 15:00
Lab Results
12/06/23 14:14
12/06/23 14:14
Sodium 141 mmol/L (135-145) 12/06/23 14:14
Potassium 4.2 mmol/L (3.5-5.1) 12/06/23 14:14
BUN 22 mg/dl (7-17) H 12/06/23 14:14
Glucose 107 mg/dl (70-99) H 12/06/23 14:14
Calcium 10.1 mg/dl (8.4-10.2) 12/06/23 14:14
Medications
-
Home Medications
�Medication �Instructions �Recorded
nifedipine 60 mg tablet,extended 60 mg PO BID Blood pressure 06/06/16
release
ursodiol 300 mg capsule 300 mg PO HS Urinary issue 01/23/17
ursodiol 300 mg capsule 600 mg PO DAILY Urinary issue 01/23/17
famotidine 40 mg tablet 40 mg PO BID Gastrointestinal issue 06/06/21
dabigatran etexilate 150 mg 150 mg PO BID #60 caps 08/04/21
capsule (Pradaxa)
isosorbide mononitrate 60 mg 60 mg PO DAILY CHEST PAIN 05/18/22
tablet,extended release 24 hr
furosemide 20 mg tablet 20 mg PO DAILY edema #30 tabs 05/28/22
metoprolol succinate 100 mg 100 mg PO DAILY #30 tabs 05/28/22
tablet,extended release 24 hr
calcium 600 mg capsule 1,200 mg PO DAILY Supplement 06/21/23
cholecalciferol (vitamin D3) 50 50 mcg PO DAILY Supplement 06/21/23
mcg (2,000 unit) capsule (Vitamin
D3)
levothyroxine 112 mcg tablet 112 mcg PO DAILY Thyroid 06/21/23
propranolol 20 mg tablet 20 mg PO Q4HPRN PRN a fib 06/23/23
atorvastatin 40 mg tablet 40 mg PO QPM 06/29/23
dofetilide 250 mcg capsule 250 mcg PO Q12 #60 caps 06/29/23
NIH Stroke Score
Subsequent NIH Scale
Date of Subsequent NIH Scale: 12/06/23
Time of Subsequent NIH Scale: 15:00
NIH Stroke Score
Level of Consciousness: 0 - Alert
LOC Questions: 0-Answers both correctly
LOC Commands: 0-Performs both correctly
Best Horizontal Gaze: 0-Normal
Visual Ayala: 0=Normal, no visual loss
Facial Palsy: 0=Normal, symmetrical
Motor - Right Arm: 0=No drift 10 seconds
Motor - Left Arm: 0=No drift 10 seconds
Motor - Right Le-No drift 5 seconds
Motor - Left Le-No drift 5 seconds
Limb Ataxia: 0-Absent
Sensation: 0-Normal
Best Language: 0-No aphasia
Dysarthria: 0-Normal
Extinction and Inattention: 0-No abnormality
Total Score:: 0
Modified [place] (mRS) Score
Modified [place] Scale (mRS): No symptoms
Score: 0
Alteplase Contraindication
Inclusion and Exclusion criteria reviewed: Yes

Documented by User: Xavier Bonilla MD 12/06/23 19:56
NIH Stroke Score
NIH Stroke Score
Total Score:: 0
Modified [place] (mRS) Score
Score: 0
[2023-12-06 16:57] LABS: HDL Cholesterol 58 mg/dl; LDL Cholesterol, Calculated 81 mg/dl; Total Cholesterol 154 mg/dl (50-199); Triglyceride 78 mg/dl (10-149); Very Low Density Lipoprotein 15 mg/dl (0-30)
--- NOTE | 2023-12-06 17:49 | W.PN.UPDATE ---
Update Note
Progress Note Update
This update note serves as addendum to H&P written by ROLL GRINDER OPERATOR Tierney Escalante.
I saw and examined the patient.
The ROLL GRINDER OPERATOR's note was reviewed and I agree with the note.
Comment:
Ms. Latha Godfrey is a 83 yo woman with hx atrial fibrillation, GERD, HTN, Hypothyroidism, breast CA s/p left mastectomy, CVA x 2 in 2021 (switched from Eliquis to Pradaxa), presents to the ER with dizziness with standing followed by b/l lower
extremity heaviness with finding of RUE and RLE drift on initial exam in the ER.
Triage VS: T 98.3, P 74, RR 18, BP 136/106, SpO2 96%
LABS: WBC 9.8, Hg 12.4, PLT 269, Na 141, K+ 4.2, BUN 22, Cr 0.7, Glucose 107, T. Bili 0.7, AST 39, ALT 17, Alk Phos [address]
IMPRESSION:
There are no acute intracranial abnormalities.
There is moderate diffuse cortical atrophy with moderate nonspecific white matter changes as described above.
There are old bilateral frontal infarcts and a 1.5 cm lacunar infarct on the right as detailed above.
On exam patient is AAO x 3, conversant. no facial droop. no pronator drift, b/l LE 5/5 strength
Right-sided weakness
Hx CVA
Hx chronically occluded right ICA
Atrial Fibrillation on Pradaxa
-differential includes orthostatic hypotension versus TIA
-appreciate neurology consult
-admit to telemetry
-neuro checks
-continue WELDER/FABRICATOR Pradaxa
-outpatient NPH work-up
-patient has outpatient appt with Dr. Freitas on 12/13/23
awaiting med rec
--- NOTE | 2023-12-06 17:57 | HPS.HSE ---
Family Physician
-
Family Physician: Florecita Valentine
Chief Complaint
-
Dizziness, bilateral leg weakness right greater than left.
History of Present Illness
83 year female complaining of breif onset dizziness this am while making coffee then she reports she felt her legs were both weak and heavy. She reports the dizziness went away but then later during this evening when she got up her legs felt very
weak with right being worse than left and difficulty moving it. She denies any other neurological deficits . She does report her primary care provider increased her metoprolol to succinate to an additional 25 mg at bedtime in addition to 100 mg in
a.m. over this past week. She does have history of renal artery stenosis status post bilateral renal stents on her history. She also reports having an exacerbation of right-sided sciatica 1 to 1/2 weeks ago resolved over the past 3 days after
sleeping on her daughter's sofa. She denies fever chills, recent illness headache blurred vision. she has past med hx of former smoker, cva, afib
Primary biliary cirrhosis, GERD, Small hiatal hernia CAD with cardiac stents x 4 RCA,, htn , hld, hypothyroidism, gastritis breast ca with mastectomy left ,Renal artery stenosis status post bilateral renal stents
Medical History
Past Medical History
Past Medical History: Reports Other
Additional Past Medical History:
1. Paroxysmal atrial fibrillation, status post cardioversion x4; pharmacological therapy with Metoprolol Succinate and Propranolol, oral anticoagulation with Pradaxa.
2. Hypertension.
3. Hyperlipidemia.
4. Coronary artery disease, status post PCI with drug eluting stents to RCA x4 2013.
5. Carotid artery stenosis, status post left carotid endarterectomy, 2016, and right carotid endarterectomy 2016.
6. Peripheral vascular disease.
7. Status post pacemaker insertion 2013.
8. Mild aortic stenosis.
9. Mild tricuspid regurgitation.
10. COPD per records.
11. Bilateral pleural effusion, 05/2022, status post thoracentesis.
12. Renal artery stenosis, status post multiple bilateral renal stents.
13. GERD.
14. Small hiatal hernia.
15. Colon polyps.
16. Primary biliary cirrhosis with mildly elevated AST.
17. 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
18. Right retinal artery occlusion, 09/2018, with residual right eye visual loss.
19. Restless leg syndrome.
20. Mild scoliosis.
21. Cervical degenerative disc disease with radiculopathy.
22. Hypothyroidism.
23. Left sided breast cancer, status post left mastectomy with sentinel node biopsy 12/2012.
24. Squamous cell carcinoma, status post multiple excisions.
25. Anemia of chronic disease.
26. Osteopenia.
27. COVID 19 pneumonia, 03/2022, requiring previous supplemental oxygen.
28. Remote history of tobacco abuse.
Past Surgical History: Reports Other
Additional Past Surgical History:
1. Cardioversion x4.
2. PCI with drug eluting stents to RCA x4.
3. Cardiac catheterization.
4. Pacemaker insertion.
5. Thoracentesis.
6. Left carotid endarterectomy.
7. Right carotid endarterectomy.
8. Left mastectomy with sentinel node biopsy.
9. Temporal artery biospy.
10. Appendectomy.
11. Bilateral tubal ligation.
12. Multiple bilateral renal stents.
13. Multiple squamous cell carcinoma excisions.
14. Bilateral cataract extraction.
15. Colonoscopy x3.
16. Endoscopy.
Social History
Tobacco: Former Smoker (She is a former up to 1 and 1/2 pack per day cigarette smoker who quit tobacco at 30 years old. )
Alcohol: Other (She drinks 1-2 glasses of wine most evenings with dinner. )
Personal: Single
Living: Alone (She lives in a 2 story home with a first floor main setup. )
Employment: Retired
Family History
Family History: Not pertinent
Allergies / Home Medications
Allergies reflects when Allergies were last updated in [facility].
Home Medications with original date entered in [facility]
Allergy/Medication List:
Allergies
Allergy/AdvReac Type Severity Reaction Status Date / Time
adhesive Allergy Redness, Verified 12/06/23 13:35
rash
amiodarone Allergy tremors Verified 12/06/23 13:35
diltiazem Allergy Rash Verified 12/06/23 13:35
hydralazine [Hydralazine] Allergy RAMSEY, Verified 12/06/23 13:35
Fatigue,
Dizziness
Iodinated Contrast Media Allergy Rash and Verified 12/06/23 13:35
[Iodinated Contrast Media - Warmth
IV Dye]
iodine [Iodine] Allergy rash with Verified 12/06/23 13:35
ivp dye
omeprazole Allergy Nausea Verified 12/06/23 13:35
spironolactone Allergy kidney Verified 12/06/23 13:35
failure-
Hypercalcemia
Home Medications
nifedipine 60 mg tablet,extended release 60 mg PO BID Blood pressure 06/06/16
ursodiol 300 mg capsule 300 mg PO HS Urinary issue 01/23/17
ursodiol 300 mg capsule 600 mg PO DAILY Urinary issue 01/23/17
famotidine 40 mg tablet 40 mg PO BID Gastrointestinal issue 06/06/21
dabigatran etexilate 150 mg capsule (Pradaxa) 150 mg PO BID #60 caps 08/04/21
isosorbide mononitrate 60 mg tablet,extended release 24 hr 60 mg PO DAILY CHEST PAIN 05/18/22
furosemide 20 mg tablet 20 mg PO DAILY edema #30 tabs 05/28/22
metoprolol succinate 100 mg tablet,extended release 24 hr 100 mg PO DAILY #30 tabs 05/28/22
calcium 600 mg capsule 1,200 mg PO DAILY Supplement 06/21/23
cholecalciferol (vitamin D3) 50 mcg (2,000 unit) capsule (Vitamin D3) 50 mcg PO DAILY Supplement 06/21/23
levothyroxine 112 mcg tablet 112 mcg PO DAILY Thyroid 06/21/23
propranolol 20 mg tablet 20 mg PO Q4HPRN PRN a fib 06/23/23
atorvastatin 40 mg tablet 40 mg PO QPM 06/29/23
dofetilide 250 mcg capsule 250 mcg PO Q12 #60 caps 06/29/23
metoprolol succinate 25 mg PO HS 12/06/23
Review of Systems
-
History Source: Patient
A 12 point ROS was completed and negative except as noted: Yes
Constitutional: Denies Fever or Chills
EENT: Denies Tearing or Mouth Swelling
Respiratory: Denies Cough or Trouble Breathing
Cardiac: Denies Chest Pain, Diaphoresis, Palpitations or Syncope
Abdomen/GI: Denies Abdominal Pain, Nausea, Vomiting, Diarrhea, Constipated, Bloody Stools or Black Stools
: Denies Dysuria, Frequency, Flank Pain, Incontinence or Difficulty Voiding
Musculoskeletal: Reports Other (Reported weakness to bilateral lower legs right greater than left earlier today resolved); Denies Joint Pain or Muscle Pain
Skin: Denies Itching or Rash
Neurological: Reports Dizzy and Weakness (Reported weakness to bilateral lower legs right greater than left earlier today resolved); Denies Headache
Endocrine: Reports No Symptoms
Hematologic/Lymphatic: Reports No Symptoms
Psych: Reports Calm
Physical Exam
Vital Signs
Vital Signs
Temp Pulse Resp BP Pulse Ox
98.3 F 72 19 96/63 94
12/06/23 13:31 12/06/23 17:15 12/06/23 17:15 12/06/23 17:08 12/06/23 17:08
Physical Exam
General: No Apparent Distress, Comfortable and Conversant; No Pain, Fever or Chills
HEENT: NormoCephalic, Anicteric, Moist mucous membranes, PERRLA, [place] Conjunctivae and No Ptosis
Respiratory: Clear; No Wheezes, Rales or Rhonchi
Cardiac: S1/S2 and Regular Rhythm; No Tachycardia, Murmur, Rub, Gallop or Peripheral Edema
Breast: Deferred by me
GI: Soft, Non Tender, Non Distended, Normal Bowel Sounds and No Hepatosplenomegaly
Rectal: Deferred by Provider
Genito-urinary: Deferred by me
Musculoskeletal: No Clubbing, No Cyanosis, No Edema and Other (Reported weakness to bilateral lower legs right greater than left earlier today resolved)
Skin: Warm and Dry; No Rash or Jaundice
Neuro: AO x 3, No Motor Deficits, Nonfocal/grossly intact, Cranial Nerves Intact and No Sensory Deficits; No DTR's Intact & Symmetrical, Slurred Speech, Facial Droop, Tremors or Sedated
Psych: Calm
Laboratory Results
-
12/06/23 14:14
12/06/23 14:14
Laboratory Results
Total Bilirubin 0.7 mg/dl (0.2-1.3) 12/06/23 14:14
AST 39 U/L (14-36) H 12/06/23 14:14
ALT 17 U/L (0-35) 12/06/23 14:14
Alkaline Phosphatase 168 U/L (38-126) H 12/06/23 14:14
Impression/Plan
-
Impression/plan:
Observation telemetry
#Dizziness with leg weakness concern for TIA/labile hypotension contributing to symptoms
-Consult neurology
-Continue Pradaxa 150 mg twice daily
-Check orthostatic vitals
-Check lipid profile, continue atorvastatin 40 mg daily
-Check HgbA1c
-Outpatient eval for NPH has appointment with Dr. Freitas 12/13/2023
-PT/OT/case management eval
CT head: No acute intracranial normalities. Moderate diffuse cortical atrophy with moderate nonspecific white matter changes old bilateral frontal infarcts and a 1.5 cm lacunar infarct on the right
#Hx right MCA ischemic stroke
#Hx 3 cm left frontal lobe infarct stable, 2 cm right frontal infarct stable, 1.5 cm lacunar infarct involving left caudate left internal capsule stable from prior study 10/18/2023
#Right leg reported weakness likely related to recent sciatic exacerbation
Reports recent sciatica 1 week ago after sleeping on daughter's sofa
-Denies current pain
# Labile/HTN- benign
96/63
Orthostatic vitals
120/60 supine HR 69
123/58 sitting HR 75
128/59 standing HR 73
-Continue metoprolol 100 mg in a.m. with hold parameters STOP additional Lopressor 25 mg at bedtime that was just started this past week
#Renal artery stenosis status post bilateral renal stents
#HLd
check lipid profile
-cont lipitor 40 mg
#A-fib paroxysmal
-Continue Pradaxa, continue tikosyn with hold parameters
- hold cont metoprolol, nifedipine,
Takes propanolol 20 mg every 4 as needed when she feels heart rate skipping
#Hypothyroidism
- cont levothyroxine
#Cad
Cardiac stent x 4 RCA drug-eluting to 2013
-Continue imdur with hold parameters
-Continue Imdur, statin, Pradaxa, beta-andrez
#Carotid stenosis status post bilateral CEA 2015, 2016
#Chronic cardiac murmur
#Pacemaker
#Anemia of chronic disease
Hgb 12.4
#Aortic stenosis�mild
Mild TR
#Primary biliary cirrhosis
#GERD
#Small hiatal hernia
-Continue Pepcid 40 mg twice daily
#Squamous cell carcinoma
#Breast cancer Left mastectomy 2012
# former smoker
#Overactive bladder
Continue ursodiol
DVT prophylaxis
Continue Pradaxa
Full code
--- NOTE | 2023-12-06 19:57 | W.PN.UPDATE ---
Update Note
Progress Note Update
83 yr. old lady with h/o multiple cerebral ischemic events, Right ICA occlusion, on Pradaxa for chronic atrial fibrillation who felt unsteady with transient weakness on the right and difficulty walking that has resolved. She has a pacemaker.
I reviewed CARRIER ASSOCIATE note and agree with evaluation assessment and treatment plan
Assessment:
1. TIA
2. NPH
PLAN:
1.Pradaxa
2. Orthostatic BP
3. Cardiology eval
4. Serial Neuro exam
[2023-12-06] MEDS: PRADAXA 150 MG PO (21:46)
[2023-12-06] MEDS: TIKOSYN 250 MCG PO (21:47)
[2023-12-06] MEDS: PROCARDIA XL (EXTENDED RELEASE) 60 MG PO (21:47)
[2023-12-06] MEDS: LIPITOR 40 MG PO (21:52)
[2023-12-06] MEDS: ACTIGALL 300 MG PO (21:52)
[2023-12-07 00:05] LABS: TSH Reflex To Free T4 0.39 uIU/ml (0.47-4.68)
[2023-12-07 00:09] LABS: Ferritin 24.2 ng/ml (11.1-264.0)
[2023-12-07 00:24] LABS: Vitamin B12 300 pg/ml (239-931)
[2023-12-07 00:52] LABS: Free T4 1.47 ng/dl (0.78-2.19)
[2023-12-07 01:42] LABS: Folate 5.4 ng/ml (2.76-20)
[2023-12-07 04:12] VITALS: BP 151/62
[2023-12-07 04:25] LABS: % Basophils 1.2 % (0-2); % Eosinophils 2.7 % (0-6); % Immature Granulocytes 0.2 % (0-0.5); % Lymphocytes 22.5 % (20.5-51.1); % Monocytes 18.6 % (1.7-9.3); % Neutrophils 54.8 % (42.2-75.2); Absolute Basophils 0.1 10^3/uL (0-0.2); Absolute Eosinophils 0.2 10^3/uL (0-0.7); Absolute Lymphocytes 1.9 10^3/uL (1.2-3.4); Absolute Monocytes 1.6 10^3/uL (0.1-0.6); Absolute Neutrophils 4.7 10^3/uL (1.4-6.5); Hematocrit 34.4 % (37.0-47.0); Hemoglobin 11.4 g/dL (12.0-16.0); Mean Corp Hgb Conc. 33.1 g/dL (33.0-37.0); Mean Corpuscular Hgb 29.9 pg (27.0-31.0); Mean Corpuscular Volume 90.3 fL (81.0-99.0); Mean Platelet Volume 10.7 fL (7.4-10.4); Nucleated Red Blood Cells % 0 %; Platelet Count 221 10^3/uL (130-400); Red Blood Cell Count 3.81 10^6/uL (4.20-5.40); Red Cell Dist. Width 14.5 % (11.5-14.5); White Blood Cell Count 8.6 10^3/uL (4.8-10.8)
[2023-12-07 05:20] LABS: Blood Urea Nitrogen 23 mg/dl (7-17); Calcium 9.2 mg/dl (8.4-10.2); Carbon Dioxide 30 mmol/L (22-30); Chloride 104 mmol/L (98-107); Estimated Creatinine Clearance 42 ml/min; Glucose 98 mg/dl (70-99); HDL Cholesterol 45 mg/dl; LDL Cholesterol, Calculated 64 mg/dl; Potassium 4.1 mmol/L (3.5-5.1); Sodium 139 mmol/L (135-145); Total Cholesterol 129 mg/dl (50-199); Triglyceride 101 mg/dl (10-149); Very Low Density Lipoprotein 20 mg/dl (0-30); eGFR > 60.00
[2023-12-07] MEDS: SYNTHROID 112 MCG PO (06:55)
[2023-12-07 06:57] VITALS: BP 152/74
[2023-12-07] MEDS: ACTIGALL 600 MG PO (08:56)
[2023-12-07] MEDS: TIKOSYN 250 MCG PO (08:57)
[2023-12-07] MEDS: OSCAL CAL 500 1000 MG PO (08:57)
[2023-12-07] MEDS: VITAMIN D3 (cholecalciferol) 50 MCG PO (08:57)
[2023-12-07] MEDS: PRADAXA 150 MG PO (08:57)
[2023-12-07] MEDS: TOPROL XL 100 MG PO (08:57)
[2023-12-07] MEDS: IMDUR (EXTENDED RELEASE) 60 MG PO (08:57)
[2023-12-07] MEDS: PROCARDIA XL (EXTENDED RELEASE) 60 MG PO (09:06)
[2023-12-07 09:13] VITALS: BP 125/72; BP 141/61; BP 145/65; PULSE 70; PULSE 74; PULSE 76
[2023-12-07 10:15] VITALS: BMI 26.0
--- NOTE | 2023-12-07 10:28 | PTCARENOTE ---
pt aaox3. oob self to bathroom. pt states no pain or sob. nihss 0.
--- NOTE | 2023-12-07 10:37 | W.PN.NEURO.1 ---
Documented by User: Allyson Laws NP 12/07/23 12:23
Today's Communication / Plan
-
.
Neuro Assessment/Plan
Assessment
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
12/06/23 with report of two episodes of dizziness followed by bilateral transient leg heaviness, lasting longer in her RLE compared to her LLE. She denies missing any doses of her Pradaxa, her last dose was this morning. She was not a candidate for
TNK/IAT due to NIHSS 0, last dose of Pradaxa that morning, and low concern for TIA/stroke. She reports that her HS metoprolol dose was increased by 25mg in the past 1-2 weeks and year ago she did have orthostatic hypotension.
-CT Head 12/06/23: There are no acute intracranial abnormalities. There is moderate diffuse cortical atrophy with moderate nonspecific white matter changes as described above. There are old bilateral frontal infarcts and a 1.5 cm lacunar infarct on
the right as detailed above.
-Orthostatic vital signs are positive this morning with systolic bp dropping from 145 to 125 with standing.
I. Orthostatic hypotension likely producing patient's symptoms.
II. TIA possible but less likely given bilateral leg weakness and duration of symptoms.
2. Ventricles appear enlarged on CT head imaging, NPH possibly contributing to report of one year history of gait dysfunction but patient has no confusion or incontinence.
4. Chronic R ICA occlusion, followed by Vascular Surgery as an outpatient, stable findings on CTA imaging from October 2023.
5. Afib on Pradaxa. History of R MCA territory ischemic stroke while on Eliquis.
Plan
-Continue home Pradaxa 150mg BID.
-Check orthostatic vital signs BID. Adjustment of BP meds per primary team. Slow position changes, YUVAL stockings during the day.
-Consider outpatient evaluation for NPH given report of 1 year of gait dysfunction.
-PT/OT evaluations.
-Provide patient with a stroke education packet.
-NIHSS and neurological checks per unit guidelines.
-LDL goal <70. LDL is 62. Continue home atorvastatin 40mg daily.
-Goal normoglycemia, hbA1c is 5.9.
-Patient has an outpatient appt with Neurology Dr. Freitas on 12/12/23 at 3:30pm, she should keep this appointment.
Subjective/Objective
Subjective Data
Date of Service: December 07, 2023
No acute events overnight. Patient reports that she feels back to her baseline today and her bilateral leg heaviness and dizziness has resolved. 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
speech/swallow difficulty, numbness, weakness, chest pain, palpitations, and shortness of breath.
Objective Data
Vital Signs
Temp Pulse Resp BP Pulse Ox
98.3 F 70 21 145/65 97
12/07/23 07:45 12/07/23 09:06 12/07/23 07:30 12/07/23 09:06 12/07/23 07:46
Lab Results
12/07/23 04:13
12/07/23 04:13
Sodium 139 mmol/L (135-145) 12/07/23 04:13
Potassium 4.1 mmol/L (3.5-5.1) 12/07/23 04:13
BUN 23 mg/dl (7-17) H 12/07/23 04:13
Glucose 98 mg/dl (70-99) 12/07/23 04:13
Calcium 9.2 mg/dl (8.4-10.2) 12/07/23 04:13
LDL Cholesterol, Calc 64 mg/dl 12/07/23 04:13
Vitamin B12 300 pg/ml (239-931) 12/06/23 22:18
Patient Allergies
adhesive Allergy (Verified 12/06/23 13:35)
Redness, rash
amiodarone Allergy (Verified 12/06/23 13:35)
tremors
diltiazem Allergy (Verified 12/06/23 13:35)
Rash
hydralazine [Hydralazine] Allergy (Verified 12/06/23 13:35)
RAMSEY, Fatigue, Dizziness
Iodinated Contrast Media [Iodinated Contrast Media - IV Dye] Allergy (Verified 12/06/23 13:35)
Rash and Warmth
iodine [Iodine] Allergy (Verified 12/06/23 13:35)
rash with ivp dye
omeprazole Allergy (Verified 12/06/23 13:35)
Nausea
spironolactone Allergy (Verified 12/06/23 13:35)
kidney failure- Hypercalcemia
LDL Level: <70, continue statin
Review of Systems
-
History Source: Patient
EENT: Negative Blurry Vision, Decreased Vision or Swallowing Difficulty
Respiratory: Negative Cough or Trouble Breathing
Cardiac: Negative Chest Pain or Palpitations
Abdomen/GI: Negative Nausea
Genitourinary: Negative Incontinence
Neuro: Negative Dizzy, Headache, Weakness, Numbness, Ataxia, Tremors or Speech Problem
Physical Exam
-
General: Well Developed, Well Nourished and No Apparent Distress
Eyes: No Ptosis and PERRLA
HEENT: Normocephalic and Atraumatic
Neck: Full Range of Motion
Respiratory: No Dyspnea
GI: Non-distended
Extremities: No Clubbing, No Cyanosis and No Edema
Psych: Unremarkable
Extended Neurological Exam
Mood & Affect: Mood Unremarkable and Affect Unremarkable
Attention Span & Concentration: Awake, Alert and Interactive
Memory: Unremarkable (AAOx3) and Able to Recall
Tremor: Hand Tremor Absent and Head Tremor Absent
Involuntary Movement: None
Speech: Quality Unremarkable, Quantity Unremarkable and Rate of Production Unremarkable
Cranial Nerve II: Left Eye: Pupillary Reactivity Unremarkable, Pupillary Size Unremarkable and Visual Marques Intact
Cranial Nerve II: Right Eye: Pupillary Reactivity Unremarkable, Pupillary Size Unremarkable and Visual Marques Reduced (absent bilateral lower quadrants at baseline, intact upper quadrants)
Cranial Nerves III, IV, : Extraocular Movement: Extraocular Movement Full in all Directions
Cranial Nerve V: Facial Sensation: Intact to Light Touch
Cranial Nerve VII: Facial Symmetry: Normal Facial Symmetry
Cranial Nerve VIII: Hearing: Unremarkable Hearing to Normal Conversational Volume
Cranial Nerves IX, X: Palate Movement: Palate Elevation Symmetric
Cranial Nerve XI: Shoulder Shrug: Unremarkable
Cranial Nerve XII: Tongue Protusion: Midline
Muscle Strength, Overall: Full Throughout
Muscle Bulk & Tone: Bulk Unremarkable and Tone Unremarkable
Pronator Drift: No Drift in Upper Extremities and No Drift in Lower Extremities
Touch Sensation: Double Simultaneous Stimulation Unremarkable
Coordination: [id number] Testing Unremarkable
Data Reviewed
-
CT Head: Report Reviewed and Image Reviewed
Orthostatic Testing: Report Reviewed
Labs: Report Reviewed
Lipid Profile: Report Reviewed
HgbA1C: Report Reviewed
Reviewed with: Physician and Patient
Medications
-
Active Medications
Generic Name Dose Route Start Last Admin
Trade Name Freq PRN Reason Stop Dose Admin
Atorvastatin Calcium 40 mg 12/07/23 18:00
Atorvastatin (Lipitor) 40 Mg Tablet PO 01/04/24 17:59
QPM SOFIA
Calcium Carbonate 1,000 mg 12/07/23 08:00 12/07/23 08:57
Calcium Carbonate 500 Mg Tablet PO 01/04/24 07:59 1,000 mg
DAILY SOFIA Administration
Cholecalciferol 50 mcg 12/07/23 08:00 12/07/23 08:57
Cholecalciferol (Vitamin D3) 50 Mcg Tablet (2,000 Units) PO 01/04/24 07:59 50 mcg
DAILY SOFIA Administration
Dabigatran 150 mg 12/06/23 20:00 12/07/23 08:57
Dabigatran Etexilate (Pradaxa) 150 Mg Capsule PO 01/03/24 19:59 150 mg
BID SOFIA Administration
Dofetilide 250 mcg 12/06/23 20:00 12/07/23 08:57
Dofetilide 250 Mcg Capsule PO 01/03/24 19:59 250 mcg
Q12 SOFIA Administration
Famotidine 20 mg 12/06/23 22:00 12/06/23 21:51
Famotidine 20 Mg Tablet PO 01/03/24 21:59 Not Given
HS SOFIA
Isosorbide Mononitrate 60 mg 12/07/23 08:00 12/07/23 08:57
Isosorbide Mononitrate 60 Mg Extended Release Tablet PO 01/04/24 07:59 60 mg
DAILY SOFIA Administration
Levothyroxine Sodium 112 mcg 12/07/23 06:00 12/07/23 06:55
Levothyroxine 112 Mcg Tablet PO 01/04/24 05:59 112 mcg
DAILY @ 0600 SOFIA Administration
Metoprolol Succinate 100 mg 12/07/23 08:00 12/07/23 08:57
Metoprolol 100 Mg Extended Release Tablet PO 01/04/24 07:59 100 mg
DAILY SOFIA Administration
Nifedipine 60 mg 12/06/23 20:52 12/07/23 09:06
Nifedipine 60 Mg Extended Release Tablet PO 01/03/24 20:51 60 mg
BID SOFIA Administration
Sodium Chloride 0 flush 12/06/23 21:00
Sodium Chloride 0.9% (Flush) Syringe IV 01/03/24 20:59
PER PROTOCOL SOFIA
Ursodiol 300 mg 12/06/23 22:00 12/06/23 21:52
Ursodiol 300 Mg Capsule PO 01/03/24 21:59 300 mg
HS SOFIA Administration
Ursodiol 600 mg 12/07/23 08:00 12/07/23 08:56
Ursodiol 300 Mg Capsule PO 01/04/24 07:59 600 mg
DAILY SOFIA Administration
Home Medications
�Medication �Instructions �Recorded
nifedipine 60 mg tablet,extended 60 mg PO BID Blood pressure 06/06/16
release
ursodiol 300 mg capsule 300 mg PO HS Urinary issue 01/23/17
ursodiol 300 mg capsule 600 mg PO DAILY Urinary issue 01/23/17
famotidine 40 mg tablet 40 mg PO BID Gastrointestinal issue 06/06/21
dabigatran etexilate 150 mg 150 mg PO BID #60 caps 08/04/21
capsule (Pradaxa)
isosorbide mononitrate 60 mg 60 mg PO DAILY CHEST PAIN 05/18/22
tablet,extended release 24 hr
furosemide 20 mg tablet 20 mg PO DAILY edema #30 tabs 05/28/22
metoprolol succinate 100 mg 100 mg PO DAILY #30 tabs 05/28/22
tablet,extended release 24 hr
cholecalciferol (vitamin D3) 50 50 mcg PO DAILY Supplement 06/21/23
mcg (2,000 unit) capsule (Vitamin
D3)
levothyroxine 112 mcg tablet 112 mcg PO DAILY Thyroid 06/21/23
propranolol 20 mg tablet 20 mg PO Q4HPRN PRN a fib 06/23/23
atorvastatin 40 mg tablet 40 mg PO QPM 06/29/23
dofetilide 250 mcg capsule 250 mcg PO Q12 #60 caps 06/29/23
metoprolol succinate 25 mg 25 mg PO QPM 12/06/23
tablet,extended release 24 hr
(Toprol XL)
calcium carbonate 500 mg PO DAILY 12/07/23
pantoprazole 40 mg tablet,delayed 40 mg PO NOON 12/07/23
release (Protonix)
NIH Stroke Score
Subsequent NIH Scale
Date of Subsequent NIH Scale: 12/07/23
Time of Subsequent NIH Scale: 09:15
NIH Stroke Score
Level of Consciousness: 0 - Alert
LOC Questions: 0-Answers both correctly
LOC Commands: 0-Performs both correctly
Best Horizontal Gaze: 0-Normal
Visual Marques: 0=Normal, no visual loss
Facial Palsy: 0=Normal, symmetrical
Motor - Right Arm: 0=No drift 10 seconds
Motor - Left Arm: 0=No drift 10 seconds
Motor - Right Le-No drift 5 seconds
Motor - Left Le-No drift 5 seconds
Limb Ataxia: 0-Absent
Sensation: 0-Normal
Best Language: 0-No aphasia
Dysarthria: 0-Normal
Extinction and Inattention: 0-No abnormality
Total Score:: 0
Modified Cruz (mRS) Score
Modified Stanley Scale (mRS): No symptoms
Score: 0

Documented by User: Xavier Bonilla MD 12/07/23 14:38
NIH Stroke Score
NIH Stroke Score
Total Score:: 0
Modified Stanley (mRS) Score
Score: 0
[2023-12-07 10:45] VITALS: BP 140/55; PULSE 70; O2SAT 97
[2023-12-07 10:46] VITALS: BP 140/55; PULSE 70; O2SAT 97
[2023-12-07 10:50] LABS: Glycohemoglobin (HgbA1c) 5.9 % (4.0-5.6)
--- NOTE | 2023-12-07 12:31 | W.PN.HOSP.TC ---
Today's Communication/Plan
-
OK for DC today
Assessment / Plan
Assessment / Plan
Ms. Latha Godfrey is a 83 yo woman with hx atrial fibrillation, GERD, HTN, Hypothyroidism, breast CA s/p left mastectomy, CVA x 2 in 2021 (switched from Eliquis to Pradaxa), presents to the ER with dizziness with standing followed by b/l lower
extremity heaviness with finding of RUE and RLE drift on initial exam in the ER.
HEAD CT
IMPRESSION:
There are no acute intracranial abnormalities.
There is moderate diffuse cortical atrophy with moderate nonspecific white matter changes as described above.
There are old bilateral frontal infarcts and a 1.5 cm lacunar infarct on the right as detailed above.
Right-sided weakness
Hx CVA
Hx chronically occluded right ICA
Atrial Fibrillation on Pradaxa
-differential includes orthostatic hypotension versus TIA
-appreciate neurology consult
-admitted to telemetry - patient in sinus
-neuro checks
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
-outpatient NPH work-up
-patient has outpatient appt with Dr. Freitas on 12/13/23
-given concern for orthostasis - will hold lasix. patient has only been on this medication 2 months for LE ankle swelling, denies hx SOB - can take as needed. will also hold evening metoprolol which was recently added to medications - I have sent
a TT to patient's admin dir, Dr. Metcalf, to update him
#Renal artery stenosis status post bilateral renal stents
#HLd
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
#A-fib paroxysmal
-Continue Pradaxa, Tikosyn, prior dosing of Metop
-F/U outpatient with Dr. Metcalf
#Hypothyroidism
- cont levothyroxine
#Cad
Cardiac stent x 4 RCA drug-eluting to 2013
-Continue Imdur, statin, Pradaxa, beta-andrez
#Carotid stenosis status post bilateral CEA 2016
#Chronic cardiac murmur
#Pacemaker
#Anemia of chronic disease
Hgb 12.4
#Aortic stenosis�mild
Mild TR
#Primary biliary cirrhosis
#GERD
#Small hiatal hernia
-Continue Pepcid 40 mg twice daily
#Squamous cell carcinoma
#Breast cancer Left mastectomy 2012
# former smoker
#Overactive bladder
Continue ursodiol
DVT prophylaxis
Continue Pradaxa
Anticipated Discharge: Today
Subjective/Interval History
-
Date of Service: December 07, 2023
feeling well
worked well with PT and feels ready to leave the hospital
Objective Data
-
Labs:
Laboratory Results
12/07/23
04:13
WBC 8.6
Hgb 11.4 L
Hct 34.4 L
Plt Count 221
Sodium 139
Potassium 4.1
Chloride 104
Carbon Dioxide 30
BUN 23 H
Creatinine 0.8
Glucose 98
Calcium 9.2
Vital Signs:
Vital Signs
Temp Pulse Resp BP Pulse Ox
98.3 F 70 21 145/65 97
12/07/23 07:45 12/07/23 09:06 12/07/23 07:30 12/07/23 09:06 12/07/23 07:46
Review of Systems
-
History Source: Patient
All other systems: Reviewed and negative
Physical Exam
-
General: Well Developed, Well Nourished, Comfortable, Respiratory Distress (improved) and Conversant
HEENT: Normocephalic, Atraumatic, Nose Appears Normal and Ears Appear Normal
Respiratory: Clear to Auscultation and Non Labored Respirations; Negative Accessory Resp Muscle Use
Cardiac: Regular Rhythm and S1/S2
GI: Soft, Nontender, Nondistended and Normal Bowel Sounds
Skin: Warm and Dry
Neuro: Awake, Alert, Oriented, AO x 3 and Nonfocal/Grossly Intact
Psych: Calm and Intact Judgement/Insight
Data Reviewed
-
Diagnostic Radiology: Report Reviewed by me
Labs: Labs Reviewed by me
--- NOTE | 2023-12-07 12:40 | W.DS.TRANS ---
DC Summary - Black Leather Buffer
-
Discharge Instructions:
Discharge Diagnosis/Procedures orthostatic hypotension
Diet Regular
Activity As tolerated
Driving Restrictions As prior to admission
Bathing Restrictions None
Other Services PT
Instructions:
Stand-Alone Forms:
Changes to Home Medications: Yes
Discharge Medications:
DC Medications w/original date entered in [employer]
nifedipine 60 mg tablet,extended release 60 mg PO BID Blood pressure 06/06/16
ursodiol 300 mg capsule 300 mg PO HS Urinary issue 01/23/17
ursodiol 300 mg capsule 600 mg PO DAILY Urinary issue 01/23/17
dabigatran etexilate 150 mg capsule (Pradaxa) 150 mg PO BID #60 caps 08/04/21
isosorbide mononitrate 60 mg tablet,extended release 24 hr 60 mg PO DAILY CHEST PAIN 05/18/22
metoprolol succinate 100 mg tablet,extended release 24 hr 100 mg PO DAILY #30 tabs 05/28/22
cholecalciferol (vitamin D3) 50 mcg (2,000 unit) capsule (Vitamin D3) 50 mcg PO DAILY Supplement 06/21/23
levothyroxine 112 mcg tablet 112 mcg PO DAILY Thyroid 06/21/23
propranolol 20 mg tablet 20 mg PO Q4HPRN PRN a fib 06/23/23
atorvastatin 40 mg tablet 40 mg PO QPM 06/29/23
dofetilide 250 mcg capsule 250 mcg PO Q12 #60 caps 06/29/23
calcium carbonate 500 mg PO DAILY 12/07/23
famotidine 40 mg tablet 40 mg PO HS Gastrointestinal issue #0 tabs 12/07/23
furosemide 20 mg tablet 20 mg PO DAILY PRN swelling #30 tabs 12/07/23
pantoprazole 40 mg tablet,delayed release (Protonix) 40 mg PO NOON 12/07/23
Home Medication Changes
Stop taking Lasix daily and only take as needed for lower extremity swelling.
Stop taking extra evening Metoprolol.
Take pepcid once in evenings. Or you can take 20mg twice a day (decreased from 40mg twice a day).
Pending Results: No
--- NOTE | 2023-12-07 13:19 | PTCARENOTE ---
Patient discharged. Paperwork done and signed. IV removed along with tele pack. Pt awaiting a ride home.
[2023-12-07 13:52] VITALS: BP 132/62
--- NOTE | 2023-12-07 14:00 | W.DCSUMMARY ---
Discharge Summary
Discharge Data
Date of Admission: 12/06/23
Date of Discharge: 12/07/23
-
Pending Results: No
Hospital Course
Discharging Physician : Dr. Mirta Mccartney
Disposition : Home with outpatient therapy
Primary care physician : Dr. Florecita Valentine
Principal Discharge diagnosis : Orthostatic hypotension, weakness
Hospital Course :
Ms. Latha Godfrey is a 83 yo woman with hx atrial fibrillation, GERD, HTN, Hypothyroidism, breast CA s/p left mastectomy, CVA x 2 in 2021 (switched from Eliquis to Pradaxa), presents to the ER with dizziness with standing followed by b/l lower
extremity heaviness with finding of RUE and RLE drift on initial exam in the ER. Triage vitals stable, labs without significant abnormality. Head CT without acute event. Her right sided weakness improved. Seen by neurology in the ER, patient
admitted to observation for further monitoring for possible TIA versus more likely orthostatic hypotension. Patient's Metoprolol dosing was recently increased to include an evening dose. She was also started on Lasix 2 months ago for ankle
swelling. 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 She worked with PT prior to DC and feels back to baseline and ready to go home. She is enrolled in outpatient therapy.
Patient has outpatient neurology follow up with Dr. Freitas on 12/13/23.
Time spent on discharge was 31 minutes.
Important imaging findings :
HEAD CT 12/06/23
IMPRESSION:
There are no acute intracranial abnormalities.
There is moderate diffuse cortical atrophy with moderate nonspecific white matter changes as described above.
There are old bilateral frontal infarcts and a 1.5 cm lacunar infarct on the right as detailed above.
Procedure findings :
Discharge Plan
-
Patient Disposition: Home (Routine Discharge)
Discharge Diagnosis/Procedures: orthostatic hypotension
Diet: Regular
Activity: As tolerated
Driving Restrictions: As prior to admission
Bathing Restrictions: None
Other Services: PT
Referrals:
Florecita Valentine DO [Family Provider] - in less than 1 week
Chad Freitas MD [Active] - 12/13/23
Additional Discharge Medication Instructions: Stop taking Lasix daily and only take as needed for lower extremity swelling.
Stop taking extra evening Metoprolol.
Take pepcid once in evenings. Or you can take 20mg twice a day (decreased from 40mg twice a day).
Prescriptions:
Continued
nifedipine 60 MG tablet extended release
60 mg PO BID
ursodiol 300 MG capsule
600 mg PO DAILY
ursodiol 300 MG capsule
300 mg PO HS
dabigatran etexilate [Pradaxa] 150 MG capsule
150 mg PO BID Qty: 60 1RF
isosorbide mononitrate 60 mg tablet extended release 24 hr
60 mg PO DAILY
metoprolol succinate 100 mg Tablet Extended Release 24 Hr
100 mg PO DAILY Qty: 30 0RF
levothyroxine 112 mcg Tablet
112 mcg PO DAILY
cholecalciferol (vitamin D3) [Vitamin D3] 50 mcg (2,000 unit) Capsule
50 mcg PO DAILY
propranolol 20 mg Tablet
20 mg PO Q4HPRN PRN (Reason: a fib )
atorvastatin 40 mg Tablet
40 mg PO QPM
dofetilide 250 mcg Capsule
250 mcg PO Q12 Qty: 60 3RF
calcium carbonate 500 mg calcium (1,250 mg) Tablet
500 mg PO DAILY
pantoprazole [Protonix] 40 mg Tablet,Delayed Release (Dr/Ec)
40 mg PO NOON
Changed
famotidine 40 MG tablet
40 mg PO HS Qty: 0 0RF
furosemide 20 mg Tablet
20 mg PO DAILY PRN (Reason: swelling) Qty: 30 0RF
Discontinued
metoprolol succinate [Toprol XL] 25 mg Tablet Extended Release 24 Hr
25 mg PO QPM
Discharge Orders:
Discharge Patient (As Directed); Ordered 12/07/23
Ordered By: Mirta Mccartney
Discharge Date and Time
Print Language: GREEK
== END 2023-12-07 14:20 | disposition home or self-care (01) ==
LOC: ED 19:13
PROVIDERS: Clinical Nurse Specialist Family Health; Emergency Medicine; Nurse Practitioner; ADMITTING PHYSICIAN Student in an Organized Health Care Education/Training Program; CONSULT PHYSICIAN Psychiatry & Neurology Neurology; EMERGENCY PHYSICIAN Emergency Medicine; FAMILY PHYSICIAN Family Medicine
DX: I95.1 Orthostatic hypotension (principal); R42 Dizziness and giddiness; R53.1 Weakness; R26.2 Difficulty in walking, not elsewhere classified; I48.91 Unspecified atrial fibrillation; I25.10 Atherosclerotic heart disease of native coronary artery without angina pectoris; E78.00 Pure hypercholesterolemia, unspecified; I10 Essential (primary) hypertension; E03.9 Hypothyroidism, unspecified; K21.9 Gastro-esophageal reflux disease without esophagitis; E78.5 Hyperlipidemia, unspecified; J44.9 Chronic obstructive pulmonary disease, unspecified; K44.9 Diaphragmatic hernia without obstruction or gangrene; I70.1 Atherosclerosis of renal artery; I48.0 Paroxysmal atrial fibrillation; I73.9 Peripheral vascular disease, unspecified; I08.2 Rheumatic disorders of both aortic and tricuspid valves; K74.3 Primary biliary cirrhosis; G25.81 Restless legs syndrome; R01.1 Cardiac murmur, unspecified; N32.81 Overactive bladder; D63.8 Anemia in other chronic diseases classified elsewhere; M85.80 Other specified disorders of bone density and structure, unspecified site; Z95.0 Presence of cardiac pacemaker; Z86.16 Personal history of COVID-19; Z85.3 Personal history of malignant neoplasm of breast; Z87.19 Personal history of other diseases of the digestive system; Z87.891 Personal history of nicotine dependence; Z86.73 Personal history of transient ischemic attack (TIA), and cerebral infarction without residual deficits; Z79.01 Long term (current) use of anticoagulants; Z90.49 Acquired absence of other specified parts of digestive tract; Z90.13 Acquired absence of bilateral breasts and nipples; Z95.5 Presence of coronary angioplasty implant and graft; Z91.041 Radiographic dye allergy status; Z88.8 Allergy status to other drugs, medicaments and biological substances; Z91.048 Other nonmedicinal substance allergy status; Z79.890 Hormone replacement therapy
CPT/HCPCS: 70450; 80048; 80053; 80061; 81003; 81015; 82607; 82728; 82746; 83036; 84439; 84443; 85025; 93005; 93288; 97166; 99285; G0378

== ENCOUNTER 2023-12-25 14:16 | Outpatient (RCR) | payer OTHER, SELFPAY | END 2023-12-25 23:59 | disposition home or self-care (01) | LOC: RPT 14:16 | PROVIDERS: ATTENDING PHYSICIAN Family Medicine | DX: R53.81 Other malaise (principal); M54.9 Dorsalgia, unspecified; M54.2 Cervicalgia; R26.89 Other abnormalities of gait and mobility; Z91.81 History of falling; Z73.6 Limitation of activities due to disability | CPT/HCPCS: 97110; 97112; 97164; 97530 ==

== ENCOUNTER → 2024-01-05 13:40 | Outpatient (REF) | payer OTHER, SELFPAY | LOC: REG 13:40 | PROVIDERS: ATTENDING PHYSICIAN Family Medicine; FAMILY PHYSICIAN Family Medicine | DX: M25.511 Pain in right shoulder (principal); G89.29 Other chronic pain; M25.512 Pain in left shoulder; M25.561 Pain in right knee | CPT/HCPCS: 73030; 73564 ==

== ENCOUNTER 2024-01-22 13:57 | Outpatient (RCR) | payer OTHER, SELFPAY | END 2024-01-22 23:59 | disposition home or self-care (01) | LOC: RPT 13:57 | PROVIDERS: ATTENDING PHYSICIAN Family Medicine | DX: M54.9 Dorsalgia, unspecified (principal); R53.81 Other malaise; M54.2 Cervicalgia; R26.89 Other abnormalities of gait and mobility; Z91.81 History of falling; Z73.6 Limitation of activities due to disability | CPT/HCPCS: 97110; 97112; 97530 ==

== ENCOUNTER 2024-02-01 14:15 | Outpatient (RCR) | payer OTHER, SELFPAY | END 2024-02-01 23:59 | disposition home or self-care (01) | LOC: RPT 14:15 | PROVIDERS: ATTENDING PHYSICIAN Family Medicine | DX: R53.81 Other malaise (principal); M54.9 Dorsalgia, unspecified; M54.2 Cervicalgia; R26.89 Other abnormalities of gait and mobility; Z73.6 Limitation of activities due to disability; M62.81 Muscle weakness (generalized); Z91.81 History of falling | CPT/HCPCS: 97110; 97112 ==

== ENCOUNTER → 2024-02-07 14:58 | Outpatient (REF) | payer OTHER, SELFPAY | LOC: RCS 14:58 | PROVIDERS: ATTENDING PHYSICIAN Internal Medicine Cardiovascular Disease; FAMILY PHYSICIAN Family Medicine | DX: I49.5 Sick sinus syndrome (principal) | CPT/HCPCS: 93306 ==

== ENCOUNTER 2024-02-16 07:59 | Day surgery (SDC) | payer OTHER, SELFPAY ==
[2024-02-13 13:18] VITALS: BMI 24.3
[2024-02-13 13:57] LABS: % Basophils 1.5 % (0-2); % Eosinophils 2.4 % (0-6); % Immature Granulocytes 0.3 % (0-0.5); % Lymphocytes 24.1 % (20.5-51.1); % Neutrophils 54.7 % (42.2-75.2); Absolute Basophils 0.1 10^3/uL (0-0.2); Absolute Eosinophils 0.2 10^3/uL (0-0.7); Absolute Lymphocytes 1.9 10^3/uL (1.2-3.4); Absolute Monocytes 1.3 10^3/uL (0.1-0.6); Absolute Neutrophils 4.3 10^3/uL (1.4-6.5); Hematocrit 38.6 % (37.0-47.0); Hemoglobin 12.8 g/dL (12.0-16.0); Mean Corp Hgb Conc. 33.2 g/dL (33.0-37.0); Mean Corpuscular Hgb 29.8 pg (27.0-31.0); Mean Platelet Volume 10.8 fL (7.4-10.4); Nucleated Red Blood Cells % 0 %; Platelet Count 241 10^3/uL (130-400); Red Blood Cell Count 4.29 10^6/uL (4.20-5.40); Red Cell Dist. Width 14.2 % (11.5-14.5); White Blood Cell Count 7.9 10^3/uL (4.8-10.8)
[2024-02-13 14:31] LABS: ALT (SGPT) 20 U/L (0-35); AST (SGOT) 40 U/L (14-36); Albumin 4.5 g/dl (3.5-5.0); Alkaline Phosphatase 168 U/L (38-126); Blood Urea Nitrogen 17 mg/dl (7-17); Calcium 9.6 mg/dl (8.4-10.2); Carbon Dioxide 23 mmol/L (22-30); Chloride 102 mmol/L (98-107); Estimated Creatinine Clearance 45 ml/min; Glucose 90 mg/dl (70-99); Potassium 4.5 mmol/L (3.5-5.1); Sodium 140 mmol/L (135-145); Total Bilirubin 0.6 mg/dl (0.2-1.3); Total Protein 8.3 g/dl (6.3-8.2); eGFR > 60.00
[2024-02-16] VITALS (8 sets, daily range): BP systolic 111–141; BP diastolic 45–74; BMI 23.8
--- NOTE | 2024-02-16 11:42 | ITS.CL.PACE ---
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
Pacemaker Implant
Procedure Report:
Date of Procedure: February 16, 2024.
Procedures: Dual chamber pacemaker generator change. Pacemaker pulse generator explantation and pacemaker pulse generator implantation.
Indication: Pacemaker at [facility] from natural battery depletion. The pacemaker is for the treatment of nonreversible symptomatic bradycardia due to sinus node dysfunction. Known persistent and paroxysmal atrial fibrillation.
Performing physician: Amarjit Metcalf MD, [facility].
Implant: Pacemaker Pulse Generator: Medtronic; Model# [id number]; Serial# [id number].
Explanted Pacemaker Pulse Generator (Implanted January 31, 2014): Medtronic; Model# [id number]; Serial# [id number].
Retained Leads (Implanted January 31, 2014):
RA Lead: Medtronic; Model# [id number]; Serial# [id number].
RV Lead: Medtronic; Model# [id number]-52cm; Serial# [id number].
Technique: A time out was performed. The procedure site was identified. The patient was anesthetized by the anesthesia service. Preoperative cefazolin was administered prior to skin incision. The patient was prepped and draped in the usual fashion.
Local anesthetic was applied to the left prepectoral subcutaneous tissue. A 3 inch incision was made over the pulse generator. The capsule was entered with Bovie cautery. The old pacemaker pulse generator was explanted. No Bovie cautery was applied
to the lead system. The leads were appropriately attached to the new device. The pocket was irrigated with antibiotic solution. Hemostasis was excellent. The device and leads were placed in the pocket. The incision was closed in three layers with
absorbable suture. Steri-strips and an Aquacel dressing were applied. There was no blood loss. There were no complications. No fluoroscopy.
During Bovie cautery the patient went into AFib that persisted as the incision was being closed. The patient was anesthetized further and a 150 J synchronized biphasic shock restored NSR. The device was interrogated after sinus was restored.
The AFib waves averaged 0.3 mV and was intermittently under sensed. Atrial sensitivity was increased to 0.15 mV. Far-field R wave sensing was seen but it falls into cross chamber blanking and does not interfere with device function.
Lead Analysis:
RA lead: P: 0.6 mV; Threshold: 0.5 V @ 0.4 ms; Impedance: 418 ohms.
RV lead: R: 3.5 mV; Threshold: 1.25 V @ 0.4 ms; Impedance: 874 ohms.
Final Programming:MVP (DDDR <=> AAIR) 70 - 130 bpm.
Conclusion: Successful Medtronic pacemaker change. The pacemaker is MRI conditional.
Recommendation: Routine post pacemaker care.
cc: Florecita Valentine DO.
== END 2024-02-16 12:38 | disposition home or self-care (01) ==
LOC: CATH 07:59
PROVIDERS: ATTENDING PHYSICIAN Internal Medicine Cardiovascular Disease; FAMILY PHYSICIAN Family Medicine
DX: Z45.010 Encounter for checking and testing of cardiac pacemaker pulse generator [battery] (principal); I49.5 Sick sinus syndrome; I48.19 Other persistent atrial fibrillation; I25.10 Atherosclerotic heart disease of native coronary artery without angina pectoris; Z95.5 Presence of coronary angioplasty implant and graft; Z85.3 Personal history of malignant neoplasm of breast; Z90.12 Acquired absence of left breast and nipple; I65.29 Occlusion and stenosis of unspecified carotid artery; I73.9 Peripheral vascular disease, unspecified; Z86.73 Personal history of transient ischemic attack (TIA), and cerebral infarction without residual deficits; Z87.891 Personal history of nicotine dependence; M48.00 Spinal stenosis, site unspecified; M54.10 Radiculopathy, site unspecified; E03.9 Hypothyroidism, unspecified; Z95.820 Peripheral vascular angioplasty status with implants and grafts; Z79.890 Hormone replacement therapy; Z79.02 Long term (current) use of antithrombotics/antiplatelets; Z79.899 Other long term (current) drug therapy
CPT/HCPCS: 33228; 36415; 80053; 85025; 93005; C1785

== ENCOUNTER → 2024-03-21 15:17 | Outpatient (REF) | payer OTHER, SELFPAY | LOC: WDC 15:17 | PROVIDERS: ATTENDING PHYSICIAN Family Medicine | DX: Z12.31 Encounter for screening mammogram for malignant neoplasm of breast (principal) | CPT/HCPCS: 77063; 77067 ==

== ENCOUNTER 2024-04-01 13:03 | Emergency (ER) | payer OTHER, SELFPAY ==
[2024-04-01 13:06] VITALS: BP 121/84
[2024-04-01 14:14] LABS: % Basophils 1.3 % (0-2); % Eosinophils 2.1 % (0-6); % Immature Granulocytes 0.1 % (0-0.5); % Lymphocytes 20.2 % (20.5-51.1); % Neutrophils 60.3 % (42.2-75.2); Absolute Basophils 0.1 10^3/uL (0-0.2); Absolute Eosinophils 0.2 10^3/uL (0-0.7); Absolute Lymphocytes 1.7 10^3/uL (1.2-3.4); Absolute Monocytes 1.3 10^3/uL (0.1-0.6); Absolute Neutrophils 5.1 10^3/uL (1.4-6.5); Hematocrit 35.7 % (37.0-47.0); Hemoglobin 11.9 g/dL (12.0-16.0); Mean Corp Hgb Conc. 33.3 g/dL (33.0-37.0); Mean Corpuscular Hgb 30.1 pg (27.0-31.0); Mean Corpuscular Volume 90.2 fL (81.0-99.0); Mean Platelet Volume 11.1 fL (7.4-10.4); Nucleated Red Blood Cells % 0 %; Platelet Count 244 10^3/uL (130-400); Red Blood Cell Count 3.96 10^6/uL (4.20-5.40); Red Cell Dist. Width 14.5 % (11.5-14.5); White Blood Cell Count 8.4 10^3/uL (4.8-10.8)
[2024-04-01 14:28] VITALS: BP 187/52
[2024-04-01 14:44] LABS: ALT (SGPT) 20 U/L (0-35); AST (SGOT) 39 U/L (14-36); Albumin 4.3 g/dl (3.5-5.0); Alkaline Phosphatase 157 U/L (38-126); Blood Urea Nitrogen 24 mg/dl (7-17); Calcium 9.6 mg/dl (8.4-10.2); Carbon Dioxide 27 mmol/L (22-30); Chloride 100 mmol/L (98-107); Glucose 97 mg/dl (70-99); Potassium 4.4 mmol/L (3.5-5.1); Sodium 141 mmol/L (135-145); Total Bilirubin 0.7 mg/dl (0.2-1.3); Total Protein 8.1 g/dl (6.3-8.2); eGFR > 60.00
[2024-04-01 14:48] LABS: COVID-19 Antigen Negative (Negative)
[2024-04-01 15:00] VITALS: BP 184/64
--- NOTE | 2024-04-01 15:56 | ED.CVA ---
History of Present Illness
General
Chief Complaint: CVA/TIA Symptoms
Time Seen by Provider: 04/01/24 13:29
Onset of Stroke Symptoms
Onset of symptoms known: Yes
Date of onset of symptoms: 03/31/24
Time of onset of symptoms: 11:00
History of Present Illness
History of Present Illness:
83-year-old female with history of A-fib, COPD, hypertension, hyperlipidemia, and GERD presents to the emergency department for evaluation of generalized weakness and difficulty walking yesterday. States that she felt as though her legs are both
heavier. She had some word finding difficulty today according to a close friend but this is resolved. She currently feels she is globally weak. Denies any speech difficulty, chest pain, or shortness of breath.
Past History
Past History
ED Past Medical History: Arrthythmia (Atrial fib), CAD, GERD, HTN, Hypercholesterolemia, Hypothyroidism and Other (Gastritis, breast cancer with left mastectomy)
ED Past Surgical History: Other (Mastectomy L)
Social History
Tobacco: Former smoker
Alcohol: Daily
Drug: None
Personal: Other
Living: alone
Employment: Retired
Family History
Family History: Other
Review of Systems
Review of Systems
Allergies reviewed?: Yes
All Other Systems: ROS reviewed and negative except as documented in HPI and ROS
Phy Exam
Physical Exam
Physical Exam:
GEN: Well appearing, NAD, WDWN
HEENT: Oral mucosa moist, no scleral icterus, no nasal congestion
Cardiac: Regular rate
Lung: No respiratory distress, no tachypnea
MSK: No gross deformity or injuries
Skin: Good color, no pallor or jaundice, no rashes
Neuro: AO x3; CN II-XII grossly intact. BUE strength 5/5 in all ayala, sensation intact and symmetric. BLE strength 5/5 in all ayala, sensation intact and symmetric, no dysarthria or aphasia, normal [id number] and [id number]. Gait is steady
with +1 assistance
Psych: Calm, cooperative
Course
Orders/Labs/Results
Orders:
Orders
04/01/24 13:48
CT Head W/o Iv Contrast Urgent
Comment:
Reason For Exam: weakness
04/01/24 14:02
COVID-19 Antigen Urgent
Source: Nasal Swab
Complete Blood Count/With Diff Urgent
Comprehensive Metabolic Panel Urgent
04/01/24 15:46
Urinalysis Reflex To Culture Urgent
Date Specimen was Collected: 04/01/24
Time Specimen was Collected: 15:45
Abnormal Lab Results
04/01/24
14:02
RBC 3.96 L 10^6/uL
(4.20-5.40)
Hgb 11.9 L g/dL
(12.0-16.0)
Hct 35.7 L %
(37.0-47.0)
MPV 11.1 H fL
(7.4-10.4)
Absolute Monos (auto) 1.3 H 10^3/uL
(0.1-0.6)
Lymphocytes % 20.2 L %
(20.5-51.1)
Monocytes % 16.0 H %
(1.7-9.3)
BUN 24 H mg/dl
(7-17)
AST 39 H U/L
(14-36)
Alkaline Phosphatase 157 H U/L
(38-126)
04/01/24 14:02
04/01/24 14:02
Vital Signs
Initial and Last Documented VS:
Initial Vital Signs
Temp Pulse Resp BP Pulse Ox
98.0 F 71 18 121/84 95
04/01/24 13:06 04/01/24 13:06 04/01/24 13:06 04/01/24 13:06 04/01/24 13:06
Last Documented Vital Signs
Temp Pulse Resp BP Pulse Ox
98.0 F 70 16 184/64 95
04/01/24 13:06 04/01/24 16:00 04/01/24 16:00 04/01/24 15:00 04/01/24 15:45
MDM/Problems Addressed
MDM/Problems Addressed:
83-year-old female presents for generalized weakness over the past day. Neurologically she is nonfocal and has no symptoms concerning for stroke or TIA. She ambulated quite well in the emergency department without difficulty and labs are all
reassuring. Do not see indication for admission at this time. Medtronic device interrogation was unremarkable
*Critical Care Note
Total Time (30-74mins, 75-104mins- exclusive of procedures): Not Applicable
ED Attending Note
-
Portions of this chart may have been created with voice recognition software.� Occasional wrong word or��sound alike� substitutions may have occurred due to the inherent limitations of voice recognition software.
Discharge Plan
Departure
Patient Disposition: Home (Routine Discharge)
Date of Disposition: 04/01/24
Time of Disposition: 16:12
Patient with high blood pressure during this ER visit?: No
Discharge Problem:
Weakness
Instructions: Weakness ED
Prescriptions:
No Action
nifedipine 60 MG tablet extended release
60 mg PO BID
ursodiol 300 MG capsule
600 mg PO DAILY
ursodiol 300 MG capsule
300 mg PO HS
dabigatran etexilate [Pradaxa] 150 MG capsule
150 mg PO BID Qty: 60 1RF
isosorbide mononitrate 60 mg tablet extended release 24 hr
60 mg PO DAILY
metoprolol succinate 100 mg Tablet Extended Release 24 Hr
100 mg PO DAILY Qty: 30 0RF
levothyroxine 112 mcg Tablet
112 mcg PO DAILY
cholecalciferol (vitamin D3) [Vitamin D3] 50 mcg (2,000 unit) Capsule
50 mcg PO DAILY
propranolol 20 mg Tablet
20 mg PO Q4HPRN PRN (Reason: a fib )
atorvastatin 40 mg Tablet
40 mg PO HS
calcium carbonate 500 mg calcium (1,250 mg) Tablet
500 mg PO DAILY
furosemide 20 mg Tablet
20 mg PO DAILY PRN (Reason: swelling) Qty: 30 0RF
pantoprazole [Protonix] 20 mg Tablet,Delayed Release (Dr/Ec)
20 mg PO DAILY
dofetilide 250 mcg capsule
250 mcg PO BID
Referrals:
Florecita Valentine DO [Family Provider] -
Interventions
Interventions:
*Risk Screen - Suicide Last Done: 04/01/24 13:06
*General Assessment Last Done: 04/01/24 14:00
*Neglect/Abuse Screening Last Done: 04/01/24 13:06
*ED COVID-19 Vaccine History Last Done: 04/01/24 14:00
ED- Pulmonary Assessment Last Done: 04/01/24 14:00
ED- Neurological Assessment Last Done: 04/01/24 14:00
ED- Cardiac Assessment Last Done: 04/01/24 14:00
ED Swallowing Screen Last Done: 04/01/24 14:40
Discharge Date and Time
Print Language: NIUEAN
[2024-04-01 16:05] LABS: Urine Albumin Negative (Neg - Trace); Urine Bilirubin Negative (Negative); Urine Character Clear (Clear); Urine Color Yellow; Urine Glucose Negative (Negative); Urine Ketone Negative (Negative); Urine Leukocyte Negative (Negative); Urine Nitrite Negative (Negative); Urine Occult Blood Negative (Negative); Urine Specific Gravity 1.005 (<1.030); Urine Urobilinogen Negative (Neg - 1+); Urine pH 6.5 (5.0-9.0)
== END 2024-04-01 17:10 | disposition home or self-care (01) ==
LOC: EMR 13:03
PROVIDERS: Physician Assistant; EMERGENCY PHYSICIAN Emergency Medicine; FAMILY PHYSICIAN Family Medicine
DX: R53.1 Weakness (principal); I48.91 Unspecified atrial fibrillation; J44.9 Chronic obstructive pulmonary disease, unspecified; E78.00 Pure hypercholesterolemia, unspecified; K21.9 Gastro-esophageal reflux disease without esophagitis; I10 Essential (primary) hypertension; Z11.52 Encounter for screening for COVID-19; Z87.891 Personal history of nicotine dependence
CPT/HCPCS: 99284; 70450; 80053; 81003; 85025; 87811

== ENCOUNTER 2024-05-27 13:30 | Outpatient (RCR) | payer OTHER, SELFPAY | END 2024-05-27 23:59 | disposition home or self-care (01) | LOC: RPT 13:30 | PROVIDERS: ATTENDING PHYSICIAN Family Medicine | DX: R26.89 Other abnormalities of gait and mobility (principal); Z73.6 Limitation of activities due to disability | CPT/HCPCS: 97110; 97116; 97163 ==

== ENCOUNTER 2024-06-07 13:09 | Outpatient (RCR) | payer OTHER, SELFPAY | END 2024-06-07 23:59 | disposition home or self-care (01) | LOC: RPT 13:09 | PROVIDERS: ATTENDING PHYSICIAN Family Medicine | DX: R26.89 Other abnormalities of gait and mobility (principal); Z73.6 Limitation of activities due to disability | CPT/HCPCS: 97110; 97116 ==

== ENCOUNTER → 2024-06-20 13:32 | Outpatient (REF) | payer OTHER, SELFPAY | LOC: RAD 13:32 | PROVIDERS: ATTENDING PHYSICIAN Family Medicine | DX: Z95.0 Presence of cardiac pacemaker (principal) | CPT/HCPCS: 71046 ==

== ENCOUNTER → 2024-06-27 13:51 | Outpatient (REF) | payer OTHER, SELFPAY | LOC: MRI 13:51 | PROVIDERS: ATTENDING PHYSICIAN Family Medicine | DX: R26.2 Difficulty in walking, not elsewhere classified (principal); Z86.73 Personal history of transient ischemic attack (TIA), and cerebral infarction without residual deficits; R53.1 Weakness | CPT/HCPCS: 70553; A9575 ==

== ENCOUNTER 2024-07-01 11:12 | Inpatient (IN) | payer OTHER, SELFPAY ==
[2024-06-28 17:56] VITALS: BP 143/63
--- NOTE | 2024-06-28 18:04 | ED.CVA ---
ED Provider Triage
<Kellie Duncan PA-C - Last Filed: 06/28/24 18:05>
-
Patient seen by provider in Triage?: Seen in Triage
Attestation: A medical screening examination has been initiated by a qualified medical provider. Based on the assessment performed at this time, it has been determined that an emergent medical condition may exist and the patient has been informed
that further medical evaluation and possible additional diagnostic testing may be needed.
HPI: 84yoF here after an outpatient MRI showed 2 tiny subacute infarcts. Having balance issues x 2 months. Unfortunately, had a fall after her MRI yesterday and struck her head. Currently on Pradaxa for afib.
GENERAL: Alert , in no apparent distress
EYE: No visual abnormalities.
NECK: Trachea midline
ENT: No visible abnormalities.
LUNGS: No acute respiratory distress
NEUROLOGICAL: Alert and oriented
SKIN: Skin intact. No visible changes.
MUSCULOSKELETAL: Moving extremities normally
PSYCH: Normal and appropriate interaction.
This is a medical evaluation conducted in person to initiate diagnostic evaluation and provide initial therapeutics. Please see further documentation by the treating clinician.
CBC, CMP, coags, EKG, and CT head ordered.
History of Present Illness
<Kellie Duncan PA-C - Last Filed: 06/28/24 18:05>
General
Chief Complaint: CVA/TIA Symptoms
Time Seen by Provider: 06/29/24 03:00
<Gabrielle Piña DO - Last Filed: 06/29/24 08:24>
General
Source: patient and previous radiology exam
Exam Limitations: none
Nursing documentation reviewed up to this point in time: agreed with
Onset of Stroke Symptoms
Onset of symptoms known: No
Time pt last seen normal is known: No
History of Present Illness
History of Present Illness:
This is a sajan 84-year-old woman who has history of paroxysmal atrial fibrillation chronically maintained on Pradaxa, history of hypertension, hyperlipidemia, previous CVA, pacemaker, PTCA with stents, remote history of breast cancer. She
complains of balance difficulties, feeling off balance that began early March. Has been following with physical therapy since May 13, going twice weekly but thus far has not noticed any significant improvement in her balance difficulties.
She missed physical therapy this week due to episode of atrial fibrillation which lasted approximately 4 days. She took a dose of propranolol with onset of A-fib which eventually resolved 4 days later. She follows with Dr. Metcalf. She admits to
similar episodes of PAF generally 3 times per year.
She underwent MRI of the brain June 27 which shows 2 small subacute infarcts right frontal/frontoparietal region. There is also note of advanced chronic small vessel disease.
Patient states she suffered a fall after that MRI striking her head. No loss of consciousness.
Due to MRI findings, worsening balance issues and fall yesterday was sent to the ED for further evaluation.
She follows with neurologist at [place], Lisa Cervantes with last visit perhaps 6 weeks ago.
Past History
<Kellie Duncan PA-C - Last Filed: 06/28/24 18:05>
Past History
ED Past Medical History: Arrthythmia (Atrial fib), CAD, GERD, HTN, Hypercholesterolemia, Hypothyroidism and Other (Gastritis, breast cancer with left mastectomy)
ED Past Surgical History: Other (Mastectomy L)
Social History
Tobacco: Former smoker
Alcohol: Daily
Drug: None
Personal: Other
Living: alone
Employment: Retired
Family History
Family History: Other
<Gabrielle Piña DO - Last Filed: 06/29/24 08:24>
Past History
ED Past Medical History: Cancer (Breast) and CVA
Social History
Alcohol: Occasional
Phy Exam
<Gabrielle Piña DO - Last Filed: 06/29/24 08:24>
Physical Exam
Physical Exam:
GENERAL: 84-year-old woman appears her stated age, awake and alert, pleasant, appears in no acute distress.
EYE: pupils equal and reactive. Extraocular muscles intact. Anicteric
NECK: Supple, nontender, no meningismus, no significant adenopathy.
ENT: oral mucosa is moist. No rhinorrhea.
CARDIAC: Regular rate and rhythm. no murmur.
LUNGS: Clear breath sounds bilaterally, no acute respiratory distress, no wheezes/rales/rhonchi
ABDOMEN: Soft, nondistended, without focal tenderness, normoactive BS.
NEUROLOGICAL: Alert and oriented x3, no focal neuro deficits.
SKIN: Warm and dry, normal color, skin intact. No rash.
MUSCULOSKELETAL: No C/C/E. peripheral pulses are full and equal b/l. No palpable tenderness.
PSYCH: Normal and appropriate interaction.
Course
<Kellie Duncan PA-C - Last Filed: 06/28/24 18:05>
Orders/Labs/Results
Orders:
Orders
06/28/24 18:03
Electrocardiogram (*1) Urgent
Reason for Study: TIA/Stroke
CT Head W/o Iv Contrast Urgent
Comment:
Reason For Exam: fall with head strike
EKG- Treatment ONCE
06/28/24 18:14
Complete Blood Count/With Diff Urgent
Comprehensive Metabolic Panel Urgent
PTT Urgent
Prothrombin Time Urgent
06/29/24 06:09
Admit/Transfer Patient As Directed
Co-Sign Provider:
Level of Care: Observation services
Assign to:: Telemetry
Physician / Group: hospitalist
Diagnosis: subacute brain infarct
Reason for Telemetry: CVA/TIA
Date to Stop Telemetry: 07/02/24
Time to Stop Telemetry: 11:00
PRN Pain Medication Management As Directed
May give lesser potent ordered pain med per pt: Yes
preference::
Protocol:: Medication orders for pain may be administered in a
manner that supports deferring to patient preference
when the pt is:
- Requesting an ordered lesser potent pain medication.
Least to most potent pain medications are defined
as: acetaminophen < NSAID < tramadol < opioids
(morphine, oxycodone, hydromorphone).
- Requesting a lesser dose of the same medication IF
ORDERED.
- Requesting a less intrusive route of administration
if both routes are prescribed by the provider (PO <
IV).
06/29/24 06:11
Code Status As Directed
Resuscitation Status: Full Code
06/29/24 06:48
Acetaminophen [Tylenol/Feverall] 650 mg RECTAL Q4HPRN PRN
Acetaminophen [Tylenol] 650 mg PO Q4HPRN PRN
06/29/24 06:48
Echo 2D MMode Color/Doppler Routine
Reason for Study: stroke/TIA
Case Management Consult ONCE
Case Management Consult: Discharge Planning
Comment: stroke/tia
Consult Notification Routine
Specialty to Notify: Neurology
Date consulting provider notified: 06/29/24
Time consulting provider notified: 07:27
Notified:: Service
DIETARY CONSULT Routine
Reason for Consult: stroke/TIA
NEUROLOGY CONSULT Routine
Consulting Provider: Steph Gage
Was physician already notified: No
Reason for consult: new subacute strokes on pradaxa
Licensed Insurance Sales Agent Urgent
VTE Contraindication Routine
VTE Mechanical Device Contraindication: Medical Contraindication
Pharmocologic Contraindication: Medical Contraindication
Activity As Directed
Activity Level: With Assistance
NIH Stroke Scale As Directed
Directions: Per protocol
Comment: every shift and with any change in condition or mental status
Neurological Checks As Directed
Frequency: q4h
Additional Instructions:: q4h x 24h upon admission to the floor, then qshift & with any change in condition
and mental status
Patient Education As Directed
Type: Stroke education packet
Comment: provide to patient and family
Vital Signs As Directed
Frequency: Per unit guidelines
Ot Eval And Treat Routine
Pt Eval And Treat Routine
Activity Level: With Assistance
06/29/24 07:22
Erythrocyte Sed Rate Routine
Glycohemoglobin (HgbA1c) Routine
06/29/24 08:00
Dabigatran Etexilate Mesylate [Pradaxa] 150 mg PO BID
Dofetilide [Tikosyn] 250 mcg PO BID
ISOSORBIDE MONOnitrate ER [Imdur (Extended Release)] 60 mg PO DAILY
Levothyroxine [Synthroid] 112 mcg PO DAILY@0600
Metoprolol Xl [Toprol Xl] 100 mg PO DAILY
NIFEdipine EXTENDED RELEASE [Procardia Xl (Extended Release)] 60 mg PO BID
Pantoprazole [Protonix] 20 mg PO BID
Sertraline HCl [Zoloft] 25 mg PO DAILY
Ursodiol [Actigall] 600 mg PO DAILY
06/29/24 22:00
Atorvastatin [Lipitor] 40 mg PO HS
Metoprolol Xl [Toprol Xl] 50 mg PO HS
Ursodiol [Actigall] 300 mg PO HS
06/30/24 06:00
Cardiovascular Evaluation Routine
07/02/24 11:00
DC Protocol for Telemetry ONCE
Abnormal Lab Results
06/28/24
18:14
RBC 3.96 L 10^6/uL
(4.20-5.40)
Hgb 11.5 L g/dL
(12.0-16.0)
Hct 35.9 L %
(37.0-47.0)
MCHC 32.0 L g/dL
(33.0-37.0)
RDW 14.7 H %
(11.5-14.5)
MPV 10.8 H fL
(7.4-10.4)
Absolute Monos (auto) 1.4 H 10^3/uL
(0.1-0.6)
Lymphocytes % 19.8 L %
(20.5-51.1)
Monocytes % 14.4 H %
(1.7-9.3)
PT 19.7 H Sec
(11.4-14.6)
APTT 52.6 H Sec
(23.4-35.0)
BUN 26 H mg/dl
(7-17)
Total Protein 8.5 H g/dl
(6.3-8.2)
06/28/24 18:14
06/28/24 18:14
Vital Signs
Initial and Last Documented VS:
Initial Vital Signs
Temp Pulse Resp BP Pulse Ox
98.1 F 71 20 143/63 95
06/28/24 17:56 06/28/24 17:56 06/28/24 17:56 06/28/24 17:56 06/28/24 17:56
Last Documented Vital Signs
Temp Pulse Resp BP Pulse Ox
98.1 F 70 16 149/53 92
06/28/24 17:56 06/29/24 07:00 06/29/24 07:00 06/29/24 07:00 06/29/24 07:00
<Gabrielle Piña, DO - Last Filed: 06/29/24 08:24>
Orders/Labs/Results
Orders:
Orders
06/28/24 18:03
Electrocardiogram (*1) Urgent
Reason for Study: TIA/Stroke
CT Head W/o Iv Contrast Urgent
Comment:
Reason For Exam: fall with head strike
EKG- Treatment ONCE
06/28/24 18:14
Complete Blood Count/With Diff Urgent
Comprehensive Metabolic Panel Urgent
PTT Urgent
Prothrombin Time Urgent
06/29/24 06:09
Admit/Transfer Patient As Directed
Co-Sign Provider:
Level of Care: Observation services
Assign to:: Telemetry
Physician / Group: hospitalist
Diagnosis: subacute brain infarct
Reason for Telemetry: CVA/TIA
Date to Stop Telemetry: 07/02/24
Time to Stop Telemetry: 11:00
PRN Pain Medication Management As Directed
May give lesser potent ordered pain med per pt: Yes
preference::
Protocol:: Medication orders for pain may be administered in a
manner that supports deferring to patient preference
when the pt is:
- Requesting an ordered lesser potent pain medication.
Least to most potent pain medications are defined
as: acetaminophen < NSAID < tramadol < opioids
(morphine, oxycodone, hydromorphone).
- Requesting a lesser dose of the same medication IF
ORDERED.
- Requesting a less intrusive route of administration
if both routes are prescribed by the provider (PO <
IV).
06/29/24 06:11
Code Status As Directed
Resuscitation Status: Full Code
06/29/24 06:48
Acetaminophen [Tylenol/Feverall] 650 mg RECTAL Q4HPRN PRN
Acetaminophen [Tylenol] 650 mg PO Q4HPRN PRN
06/29/24 06:48
Echo 2D MMode Color/Doppler Routine
Reason for Study: stroke/TIA
Case Management Consult ONCE
Case Management Consult: Discharge Planning
Comment: stroke/tia
Consult Notification Routine
Specialty to Notify: Neurology
Date consulting provider notified: 06/29/24
Time consulting provider notified: 07:27
Notified:: Service
DIETARY CONSULT Routine
Reason for Consult: stroke/TIA
NEUROLOGY CONSULT Routine
Consulting Provider: Steph Gage
Was physician already notified: No
Reason for consult: new subacute strokes on pradaxa
Licensed Insurance Sales Agent Urgent
VTE Contraindication Routine
VTE Mechanical Device Contraindication: Medical Contraindication
Pharmocologic Contraindication: Medical Contraindication
Activity As Directed
Activity Level: With Assistance
NIH Stroke Scale As Directed
Directions: Per protocol
Comment: every shift and with any change in condition or mental status
Neurological Checks As Directed
Frequency: q4h
Additional Instructions:: q4h x 24h upon admission to the floor, then qshift & with any change in condition
and mental status
Patient Education As Directed
Type: Stroke education packet
Comment: provide to patient and family
Vital Signs As Directed
Frequency: Per unit guidelines
Ot Eval And Treat Routine
Pt Eval And Treat Routine
Activity Level: With Assistance
06/29/24 07:22
Erythrocyte Sed Rate Routine
Glycohemoglobin (HgbA1c) Routine
06/29/24 08:00
Dabigatran Etexilate Mesylate [Pradaxa] 150 mg PO BID
Dofetilide [Tikosyn] 250 mcg PO BID
ISOSORBIDE MONOnitrate ER [Imdur (Extended Release)] 60 mg PO DAILY
Levothyroxine [Synthroid] 112 mcg PO DAILY@0600
Metoprolol Xl [Toprol Xl] 100 mg PO DAILY
NIFEdipine EXTENDED RELEASE [Procardia Xl (Extended Release)] 60 mg PO BID
Pantoprazole [Protonix] 20 mg PO BID
Sertraline HCl [Zoloft] 25 mg PO DAILY
Ursodiol [Actigall] 600 mg PO DAILY
06/29/24 22:00
Atorvastatin [Lipitor] 40 mg PO HS
Metoprolol Xl [Toprol Xl] 50 mg PO HS
Ursodiol [Actigall] 300 mg PO HS
06/30/24 06:00
Cardiovascular Evaluation Routine
07/02/24 11:00
DC Protocol for Telemetry ONCE
Abnormal Lab Results
06/28/24
18:14
RBC 3.96 L 10^6/uL
(4.20-5.40)
Hgb 11.5 L g/dL
(12.0-16.0)
Hct 35.9 L %
(37.0-47.0)
MCHC 32.0 L g/dL
(33.0-37.0)
RDW 14.7 H %
(11.5-14.5)
MPV 10.8 H fL
(7.4-10.4)
Absolute Monos (auto) 1.4 H 10^3/uL
(0.1-0.6)
Lymphocytes % 19.8 L %
(20.5-51.1)
Monocytes % 14.4 H %
(1.7-9.3)
PT 19.7 H Sec
(11.4-14.6)
APTT 52.6 H Sec
(23.4-35.0)
BUN 26 H mg/dl
(7-17)
Total Protein 8.5 H g/dl
(6.3-8.2)
06/28/24 18:14
06/28/24 18:14
Vital Signs
Initial and Last Documented VS:
Initial Vital Signs
Temp Pulse Resp BP Pulse Ox
98.1 F 71 20 143/63 95
06/28/24 17:56 06/28/24 17:56 06/28/24 17:56 06/28/24 17:56 06/28/24 17:56
Last Documented Vital Signs
Temp Pulse Resp BP Pulse Ox
98.1 F 70 16 149/53 92
06/28/24 17:56 06/29/24 07:00 06/29/24 07:00 06/29/24 07:00 06/29/24 07:00
<Gabrielle Piña DO - Last Filed: 06/29/24 08:24>
MDM/Problems Addressed
Differential Diagnosis Includes:
MRI finding of subacute right-sided stroke.
Concern that this is contributing to balance issues and with recent fall, patient at significant risk for recurrent falls, at risk for recurrent stroke.
CT of the head shows no acute findings, no acute traumatic findings.
She remains hemodynamically stable. No episodes of A-fib.
Due to concern for recurrent stroke, recurrent falls will require acute hospitalization.
Chronic conditions affecting care: HTN, Arrhythmia, COPD, Neurological disorder and Cancer
Acute Exacerbation and/or Progression of Chronic Illness: Neurological disorder
<Gabrielle Piña DO - Last Filed: 06/29/24 08:24>
*Radiology
Radiology exam reviewed: radiology read reviewed
*Pulse Oximetry
Patient hypoxic: no
*Oyster Shucker Interpretation
Rate: normal
Interpretation: normal
Rhythm: sinus
*Critical Care Note
Total Time (30-74mins, 75-104mins- exclusive of procedures): Not Applicable
ED Attending Note
<Kellie Duncan PA-C - Last Filed: 06/28/24 18:05>
-
Portions of this chart may have been created with voice recognition software.� Occasional wrong word or��sound alike� substitutions may have occurred due to the inherent limitations of voice recognition software.
Discharge Plan
Departure
Patient Disposition: Admit
Date of Disposition: 06/29/24
Time of Disposition: 03:42
Admit to: Telemetry
Admit to doctor: Japsreet
Presentation/result/management discussed w/ accepting MD/DO: Hospitalist
Condition: Fair
Discharge Problem:
subacute stroke, balance disorder with falls, PAF (paroxysmal atrial fibrillation)
Interventions
Interventions:
*Risk Screen - Suicide Last Done: 06/29/24 07:25
*General Assessment Last Done: 06/28/24 17:56
*Neglect/Abuse Screening Last Done: 06/28/24 17:56
*ED COVID-19 Vaccine History Last Done: 06/29/24 02:57
ED-Skin Assessment Last Done: 06/29/24 02:57
ED- Pulmonary Assessment Last Done: 06/29/24 02:57
ED- Neurological Assessment Last Done: 06/29/24 07:24
ED-Musculoskeletal Assessment Last Done: 06/29/24 02:57
ED- Cardiac Assessment Last Done: 06/29/24 02:57
ED Swallowing Screen Last Done: 06/29/24 02:57
[2024-06-28 18:32] LABS: % Basophils 0.7 % (0-2); % Eosinophils 1.7 % (0-6); % Immature Granulocytes 0.2 % (0-0.5); % Lymphocytes 19.8 % (20.5-51.1); % Monocytes 14.4 % (1.7-9.3); % Neutrophils 63.2 % (42.2-75.2); Absolute Basophils 0.1 10^3/uL (0-0.2); Absolute Eosinophils 0.2 10^3/uL (0-0.7); Absolute Lymphocytes 1.9 10^3/uL (1.2-3.4); Absolute Monocytes 1.4 10^3/uL (0.1-0.6); Absolute Neutrophils 6.1 10^3/uL (1.4-6.5); Hematocrit 35.9 % (37.0-47.0); Hemoglobin 11.5 g/dL (12.0-16.0); Mean Corpuscular Volume 90.7 fL (81.0-99.0); Mean Platelet Volume 10.8 fL (7.4-10.4); Nucleated Red Blood Cells % 0 %; Platelet Count 242 10^3/uL (130-400); Red Blood Cell Count 3.96 10^6/uL (4.20-5.40); Red Cell Dist. Width 14.7 % (11.5-14.5); White Blood Cell Count 9.7 10^3/uL (4.8-10.8)
[2024-06-28 18:42] LABS: INR 1.64; PT 19.7 Sec (11.4-14.6)
[2024-06-28 18:43] LABS: APTT 52.6 Sec (23.4-35.0)
[2024-06-28 18:52] LABS: ALT (SGPT) 14 U/L (0-35); AST (SGOT) 29 U/L (14-36); Albumin 4.8 g/dl (3.5-5.0); Alkaline Phosphatase 114 U/L (38-126); Blood Urea Nitrogen 26 mg/dl (7-17); Calcium 9.3 mg/dl (8.4-10.2); Carbon Dioxide 25 mmol/L (22-30); Chloride 100 mmol/L (98-107); Glucose 99 mg/dl (70-99); Potassium 3.8 mmol/L (3.5-5.1); Sodium 139 mmol/L (135-145); Total Protein 8.5 g/dl (6.3-8.2)
[2024-06-28 19:11] LABS: Total Bilirubin 0.6 mg/dl (0.2-1.3)
[2024-06-29] VITALS (19 sets, daily range): BP systolic 131–176; BP diastolic 45–106; PULSE 70; O2SAT 96
--- NOTE | 2024-06-29 06:48 | HPS.HSE ---
Family Physician
-
Family Physician: Florecita Valentine
Chief Complaint
-
Fall, subacute stroke
History of Present Illness
This is a 84-year-old female with past medical history significant for atrial fibrillation on anticoagulation with Pradaxa, CAD, hypertension, carotid artery stenosis status post bilateral endarterectomy, status post pacemaker, hypothyroid presents
to the emergency department following a fall at home where she hit her head.
Patient has been having ambulatory difficulties for several months now. She is undergoing physical therapy without much improvement. She is also being followed by neurology with evaluation for gait and neuromuscular dysfunction. Patient reported
that she felt that she was in atrial fibrillation for 4 days 1 week ago. It was not rapid but it was symptomatic. She reports that due to her ongoing gait issues she had an MRI done 2 days ago. The MRI shows 2 small frontal/frontoparietal
subacute strokes. He is unaware of any specific. When she had a focal neurological deficit. She reported that several months ago she had an episode that she likened to a TIA. She reports prior TIAs in 2021. She reports history of carotid
stenosis status post surgery.
Patient reports compliance with the Pradaxa as well as the rest of her usual medications. She denies vertigo. She reports that the gait is associated with a widened gait without any pain. She reports some weakness which is unchanged. She denies
any bladder or bowel incontinence. She currently denies any numbness tingling or focal weakness. She denies any facial asymmetry. She denies any aphasia, dysarthria or dysphagia.
In the emergency department she was afebrile, she had a usual blood pressure of 160/60 with a pulse of 71. CT of the head today was negative for any bleed. CBC was unremarkable. Electrolytes BUN/creatinine were all within the normal range.
Medical History
Past Medical History
Past Medical History: Reports Arrhythmia (Proximal atrial fibrillation), CAD, CVA, HTN, Hypercholesterolemia and Hypothyroidism
Additional Past Medical History:
Biliary cirrhosis
Past Surgical History: Reports Other
Social History
Tobacco: Non-smoker
Alcohol: None
Drug: None
Personal: Single
Living: Alone
Employment: Retired
Family History
Family History: Not pertinent
Allergies / Home Medications
Allergies reflects when Allergies were last updated in [facility].
Home Medications with original date entered in [facility]
Allergy/Medication List:
Allergies
Allergy/AdvReac Type Severity Reaction Status Date / Time
adhesive Allergy Redness, Verified 06/28/24 18:01
rash
amiodarone Allergy tremors Verified 06/28/24 18:01
diltiazem Allergy Rash Verified 06/28/24 18:01
hydralazine [Hydralazine] Allergy RAMSEY, Verified 06/28/24 18:01
Fatigue,
Dizziness
Iodinated Contrast Media Allergy Rash and Verified 06/28/24 18:01
[Iodinated Contrast Media - Warmth
IV Dye]
iodine [Iodine] Allergy rash with Verified 06/28/24 18:01
ivp dye
omeprazole Allergy Nausea Verified 06/28/24 18:01
spironolactone Allergy kidney Verified 06/28/24 18:01
failure-
Hypercalcemia
Home Medications
nifedipine 60 mg tablet,extended release 60 mg PO BID Blood pressure 06/06/16
ursodiol 300 mg capsule 300 mg PO HS Urinary issue 01/23/17
ursodiol 300 mg capsule 600 mg PO DAILY Urinary issue 01/23/17
dabigatran etexilate 150 mg capsule (Pradaxa) 150 mg PO BID #60 caps 08/04/21
isosorbide mononitrate 60 mg tablet,extended release 24 hr 60 mg PO DAILY CHEST PAIN 05/18/22
metoprolol succinate 100 mg tablet,extended release 24 hr 100 mg PO DAILY #30 tabs 05/28/22
cholecalciferol (vitamin D3) 50 mcg (2,000 unit) capsule (Vitamin D3) 50 mcg PO DAILY Supplement 06/21/23
levothyroxine 112 mcg tablet 112 mcg PO DAILY Thyroid 06/21/23
propranolol 20 mg tablet 20 mg PO Q4HPRN PRN a fib 06/23/23
atorvastatin 40 mg tablet 40 mg PO HS 06/29/23
calcium carbonate 500 mg PO DAILY 12/07/23
furosemide 20 mg tablet 20 mg PO DAILY PRN swelling #30 tabs 12/07/23
pantoprazole 20 mg tablet,delayed release (Protonix) 20 mg PO BID 02/09/24
dofetilide 250 mcg capsule 250 mcg PO BID 02/16/24
metoprolol succinate 50 mg tablet,extended release 24 hr 50 mg PO HS 06/29/24
sertraline 25 mg tablet (Zoloft) 25 mg PO DAILY 06/29/24
valsartan PO DAILY 06/29/24
Review of Systems
-
History Source: Patient
Constitutional: Reports No Symptoms
EENT: Reports No Symptoms
Respiratory: Reports No Symptoms
Cardiac: Reports No Symptoms
Abdomen/GI: Reports No Symptoms
: Reports No Symptoms
Musculoskeletal: Reports No Symptoms
Skin: Reports No Symptoms
Neurological: Reports Other (unsteady gait)
Endocrine: Reports No Symptoms
Hematologic/Lymphatic: Reports No Symptoms
Psych: Reports No Symptoms
Physical Exam
Vital Signs
Vital Signs
Temp Pulse Resp BP Pulse Ox
98.1 F 71 14 152/54 93
06/28/24 17:56 06/29/24 06:00 06/29/24 06:00 06/29/24 06:00 06/29/24 06:00
Physical Exam
General: Well Developed, Well Nourished, No Apparent Distress and Comfortable
HEENT: NormoCephalic, Anicteric, Moist mucous membranes and Atraumatic
Respiratory: Clear
Cardiac: S1/S2 and Regular Rhythm
Breast: Deferred by me
GI: Soft, Non Tender, Non Distended and Normal Bowel Sounds
Rectal: Deferred by Provider
Genito-urinary: Deferred by me
Musculoskeletal: No Clubbing, No Cyanosis and No Edema
Skin: Warm
Neuro: AO x 3, Nonfocal/grossly intact and Cranial Nerves Intact; No Facial Droop or Tremors
Hematologic/Lymphatic: No Lymphadenopathy
Psych: Calm
Laboratory Results
-
06/28/24 18:14
06/28/24 18:14
Laboratory Results
PT 19.7 Sec (11.4-14.6) H 06/28/24 18:14
INR 1.64 06/28/24 18:14
APTT 52.6 Sec (23.4-35.0) H 06/28/24 18:14
Total Bilirubin 0.6 mg/dl (0.2-1.3) 06/28/24 18:14
AST 29 U/L (14-36) 06/28/24 18:14
ALT 14 U/L (0-35) 06/28/24 18:14
Alkaline Phosphatase 114 U/L (38-126) 06/28/24 18:14
Data Reviewed
-
CT Scan: Report Reviewed by me
Medical Tests (Nuc Med, Echo, EKG etc): Image Personally Visualized and interpreted
Lab Data: Labs Reviewed by me
Old Records: Reviewed
Impression/Plan
-
IMPRESSION:
84 y.o female with h/o paroxysmal atrial fibrillation presenting to ED following a mechanical fall and also had outpatient MRI showing 2 small right frontal/frontoparietal subacute infarcts. No clear history to correlate timing of infarcts with any
symptoms. Given good historian and history of compliance with anticoagulation there is concern for failure. However, patient also has history of PAD and carotid artery disease with prior intervention. She reported possible transient attack months
ago. She has hypertension, hyperlipidemia as well.
PLAN:
1. Subacute stroke - Possibly a slient cerebral infarction related to AF vs stroke related to other factors. Currently NIHSS = 0. Fall without evidence of intracranial hemorrhage.
- admit to telemetry
- cholesterol lowering diet
- will continue dabigatran for now
- check blood vessels via mra head/neck (iodine contrast allergy)
- check echo, cardiovascular panel and a1c
- subacute stroke appears well complete, will continue terminal operator ac with pradaxa
- question of antiplatelet therapy pending neuro eval
- continue statin
- PT/OT evaluation
- neurology consultation
2. HTN
- continue management with valsartan/nifedipine
- continue imdur
- continue metoprolol
3. AFIB - rate controlled currently
- continue pradaxa
- metoprolol 100 am and 50 hs for rat control
DVT PPX - on pradaxa
Code status - full code
[2024-06-29] MEDS: DIOVAN 80 MG PO (07:54)
[2024-06-29] MEDS: PROTONIX 20 MG PO ×2 (07:54→20:24)
[2024-06-29] MEDS: TIKOSYN 250 MCG PO ×2 (07:54→20:22)
[2024-06-29] MEDS: PRADAXA 150 MG PO ×2 (07:54→20:24)
[2024-06-29] MEDS: PROCARDIA XL (EXTENDED RELEASE) 60 MG PO ×2 (07:54→20:24)
[2024-06-29] MEDS: ZOLOFT 25 MG PO (07:54)
[2024-06-29] MEDS: SYNTHROID 112 MCG PO (07:54)
[2024-06-29] MEDS: IMDUR (EXTENDED RELEASE) 60 MG PO (07:54)
[2024-06-29] MEDS: TOPROL XL 100 MG PO (07:54)
[2024-06-29] MEDS: ACTIGALL 600 MG PO (07:55)
[2024-06-29 08:20] LABS: Erythrocyte Sed Rate 48 mm/hour (0-20)
--- NOTE | 2024-06-29 08:48 | CON.NEURO ---
Addendum entered and electronically signed by Steph Gage MD 06/30/24 16:13:
correction: R ICA occlusion, not BL.
Addendum entered and electronically signed by Steph Gage MD 06/30/24 10:59:
R NORI cortical infarcts
Original Note:
Consultation
Order
Date of Consultation: 06/29/24
Requesting Provider: Brock Vogel MD
Reason for Consult: Subacute stroke
Neurology Consultation Note.
HPI: This is an 84-year-old woman who presented to [facility] on 06/28/2024 with abnormal brain MRI results.
Ms. Godfrey was reportedly seen by Lisa Cervantes MD([facility] neurology) for progressive ambulatory dysfunction and had brain MRI on 06/27/2024 that showed subacute right MCA distribution infarcts.
The patient has a history of right MCA stroke in 2021 with residual minimal left arm weakness (difficulties with writing).
She states that she has been compliant with Pradaxa. She gets her medication shipped from [facility]. Patient has a history of peripheral artery disease that included bilateral CEA and bilateral ICA occlusion based on
ER VS: 143/63-170/58, 71, afebrile
PDMP:none
Labs: Normal glucose, WBCs, platelets, sodium
Brain MRI without shun (06/27/2024)�punctuate right frontal/frontoparietal lobes subacute infarcts, severe bihemispheric leukoaraiosis
PMH: PA A-Fib, BL ICA occlusion, R MCA stroke(07/2021), h/o left breast cancer, Primary biliary cirrhosis, PAD, CAD, SSS, DLP, CKD, hypothyroidism, GERD, ambulatory dysfunction
PSH: BL CEA, Left mastectomy, bilateral cataract surgery, PPM, renal artery/coronary PTCI
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
FH: Mother�lung cancer, father�coronary artery disease
All: Amiodarone, hydralazine, iodine, omeprazole, spironolactone
ROS: Constitutional: Negative. Negative for chills, fever and unexpected weight change.
HENT: Positive for hearing impairment,
Eyes: Negative. Negative for photophobia, pain and visual disturbance.
Respiratory: Negative for cough, choking and shortness of breath.
Cardiovascular: Negative for chest pain, palpitations and leg swelling.
Gastrointestinal: Negative for abdominal pain and vomiting.
Endocrine: Negative. Negative for cold intolerance.
Genitourinary: Positive urinary incontinence
Musculoskeletal: Negative for back pain, gait problem, neck pain and neck stiffness.
Skin: Negative for rash.
Allergic/Immunologic: Negative. Negative for immunocompromised state.
Neurological: Positive for imbalance, left hand weakness, shuffling gait
Psychiatric/Behavioral: Negative for behavioral problems, confusion and hallucinations.
General: Well developed. In no acute distress.
Cardio: irregular rate and rhythm . Extremities are without cyanosis or edema.
Neuro:
Mental Status: Alert, oriented to person, place, and date. Normal attention and recall. Mild expressive aphasia. Good fund of knowledge. Follows complex requests across the midline. Comprehension, naming, and repetition intact.
Cranial Nerves: Pupils are equally round, surgical. EOMs full. Visual ayala full to confrontation. No ptosis. No nystagmus. V1-V3 intact to light touch and pinprick bilaterally, symmetric. Face symmetric. Poor hearing AU. The palate
elevated well. SCMs and traps 5/5. Tongue midline. No dysarthria.
Motor: Normal bulk and tone. No pronator or arm drift. Strength 5/5 throughout except for mild right dorsiflexion weakness. No clonus.
Reflexes: 2+ throughout the upper extremities and knees. Plantar responses flexor bilaterally.
Sensory: Normal vibration at the ankles.
Coordination: No dysmetria or tremor.
Gait: deferred
Assessment and Plan:
I. Subacute right MCA distribution embolic infarcts. Likely etiology�artery to artery athero-embolism
II. Chronic bilateral ICA occlusion
III. PA A-Fib
IV. Vascular parkinsonism
-Continue Telemetry monitoring
-Fall precautions,
-Cardiology evaluation for Watchman procedure
-Continue Pradaxa, will confirm medication compliance
-LDL goal�less than 100
-PT.
-DVT prophylaxis.
I personally reviewed all radiology and labs along with past medical records pertinent to current medical problems. Total time spent in patient care is 60 minutes.
Thank you for allowing us to participate in the care of this patient. We will continue to follow. Please do not hesitate to contact us with any questions or concerns.
Subjective/Objective
Subjective Data
Date of Service: June 29, 2024
Objective Data
Vital Signs
Temp Pulse Resp BP Pulse Ox
36.7 C 70 16 149/53 92
06/28/24 17:56 06/29/24 07:00 06/29/24 07:00 06/29/24 07:00 06/29/24 07:00
Lab Results
06/28/24 18:14
06/28/24 18:14
PT 19.7 Sec (11.4-14.6) H 06/28/24 18:14
INR 1.64 06/28/24 18:14
APTT 52.6 Sec (23.4-35.0) H 06/28/24 18:14
Sodium 139 mmol/L (135-145) 06/28/24 18:14
Potassium 3.8 mmol/L (3.5-5.1) 06/28/24 18:14
BUN 26 mg/dl (7-17) H 06/28/24 18:14
Glucose 99 mg/dl (70-99) 06/28/24 18:14
Calcium 9.3 mg/dl (8.4-10.2) 06/28/24 18:14
Patient Allergies
adhesive Allergy (Verified 06/28/24 18:01)
Redness, rash
amiodarone Allergy (Verified 06/28/24 18:01)
tremors
diltiazem Allergy (Verified 06/28/24 18:01)
Rash
hydralazine [Hydralazine] Allergy (Verified 06/28/24 18:01)
RAMSEY, Fatigue, Dizziness
Iodinated Contrast Media [Iodinated Contrast Media - IV Dye] Allergy (Verified 06/28/24 18:01)
Rash and Warmth
iodine [Iodine] Allergy (Verified 06/28/24 18:)
rash with ivp dye
omeprazole Allergy (Verified 06/28/24 18:)
Nausea
spironolactone Allergy (Verified 06/28/24 18:01)
kidney failure- Hypercalcemia
Medications
-
Active Medications
Generic Name Dose Route Start Last Admin
Trade Name Freq PRN Reason Stop Dose Admin
Acetaminophen 650 mg 06/29/24 06:48
Acetaminophen 650 Mg Rectal Suppository RECTAL 07/27/24 06:47
Q4HPRN PRN
MCGHEE, mild pain, or temp >100.4F
Acetaminophen 650 mg 06/29/24 06:48
Acetaminophen 325 Mg Tablet PO 07/27/24 06:47
Q4HPRN PRN
MCGHEE, mild pain, or temp >100.4F
Atorvastatin Calcium 40 mg 06/29/24 22:00
Atorvastatin (Lipitor) 40 Mg Tablet PO 07/27/24 21:59
HS SOFIA
Dabigatran 150 mg 06/29/24 08:00 06/29/24 07:54
Dabigatran Etexilate (Pradaxa) 150 Mg Capsule PO 07/27/24 07:59 150 mg
BID SOFIA Administration
Dofetilide 250 mcg 06/29/24 08:00 06/29/24 07:54
Dofetilide 250 Mcg Capsule PO 07/27/24 07:59 250 mcg
BID SOFIA Administration
Isosorbide Mononitrate 60 mg 06/29/24 08:00 06/29/24 07:54
Isosorbide Mononitrate 60 Mg Extended Release Tablet PO 07/27/24 07:59 60 mg
DAILY SOFIA Administration
Levothyroxine Sodium 112 mcg 06/29/24 08:00 06/29/24 07:54
Levothyroxine 112 Mcg Tablet PO 07/27/24 07:59 112 mcg
DAILY@0600 SOFIA Administration
Metoprolol Succinate 50 mg 06/29/24 22:00
Metoprolol 50 Mg Extended Release Tablet PO 07/27/24 21:59
HS SOFIA
Metoprolol Succinate 100 mg 06/29/24 08:00 06/29/24 07:54
Metoprolol 100 Mg Extended Release Tablet PO 07/27/24 07:59 100 mg
DAILY SOFIA Administration
Nifedipine 60 mg 06/29/24 08:00 06/29/24 07:54
Nifedipine 60 Mg Extended Release Tablet PO 07/27/24 07:59 60 mg
BID SOFIA Administration
Pantoprazole Sodium 20 mg 06/29/24 08:00 06/29/24 07:54
Pantoprazole 20 Mg Delayed Release Tablet PO 07/27/24 07:59 20 mg
BID SOFIA Administration
Sertraline HCl 25 mg 06/29/24 08:00 06/29/24 07:54
Sertraline 25 Mg Tablet PO 07/27/24 07:59 25 mg
DAILY SOFIA Administration
Sodium Chloride 0 flush 06/29/24 07:00
Sodium Chloride 0.9% (Flush) Syringe IV 07/27/24 06:59
PER PROTOCOL SOFIA
Ursodiol 600 mg 06/29/24 08:00 06/29/24 07:55
Ursodiol 300 Mg Capsule PO 07/27/24 07:59 600 mg
DAILY SOFIA Administration
Ursodiol 300 mg 06/29/24 22:00
Ursodiol 300 Mg Capsule PO 07/27/24 21:59
HS SOFIA
Valsartan 80 mg 06/29/24 08:00 06/29/24 07:54
Valsartan 80 Mg Tablet PO 07/27/24 07:59 80 mg
DAILY SOFIA Administration
Home Medications
�Medication �Instructions �Recorded
nifedipine 60 mg tablet,extended 60 mg PO BID Blood pressure 06/06/16
release
ursodiol 300 mg capsule 300 mg PO HS Urinary issue 01/23/17
ursodiol 300 mg capsule 600 mg PO DAILY Urinary issue 01/23/17
dabigatran etexilate 150 mg 150 mg PO BID #60 caps 08/04/21
capsule (Pradaxa)
isosorbide mononitrate 60 mg 60 mg PO DAILY CHEST PAIN 05/18/22
tablet,extended release 24 hr
metoprolol succinate 100 mg 100 mg PO DAILY #30 tabs 05/28/22
tablet,extended release 24 hr
cholecalciferol (vitamin D3) 50 50 mcg PO DAILY Supplement 06/21/23
mcg (2,000 unit) capsule (Vitamin
D3)
levothyroxine 112 mcg tablet 112 mcg PO DAILY Thyroid 06/21/23
propranolol 20 mg tablet 20 mg PO Q4HPRN PRN a fib 06/23/23
atorvastatin 40 mg tablet 40 mg PO HS 06/29/23
calcium carbonate 500 mg PO DAILY 12/07/23
furosemide 20 mg tablet 20 mg PO DAILY PRN swelling #30 12/07/23
tabs
pantoprazole 20 mg tablet,delayed 20 mg PO BID 02/09/24
release (Protonix)
dofetilide 250 mcg capsule 250 mcg PO BID 02/16/24
metoprolol succinate 50 mg 50 mg PO HS 06/29/24
tablet,extended release 24 hr
sertraline 25 mg tablet (Zoloft) 25 mg PO DAILY 06/29/24
valsartan PO DAILY 06/29/24
Vital Signs and Labs
-
Vital Signs and Labs:
Vital Signs
Temp Pulse Resp BP Pulse Ox
36.7 C 70 16 149/53 92
06/28/24 17:56 06/29/24 07:00 06/29/24 07:00 06/29/24 07:00 06/29/24 07:00
Lab Results
06/28/24 18:14
06/28/24 18:14
PT 19.7 Sec (11.4-14.6) H 06/28/24 18:14
INR 1.64 06/28/24 18:14
APTT 52.6 Sec (23.4-35.0) H 06/28/24 18:14
Sodium 139 mmol/L (135-145) 06/28/24 18:14
Potassium 3.8 mmol/L (3.5-5.1) 06/28/24 18:14
BUN 26 mg/dl (7-17) H 06/28/24 18:14
Glucose 99 mg/dl (70-99) 06/28/24 18:14
Calcium 9.3 mg/dl (8.4-10.2) 06/28/24 18:14
Medications
-
Medications:
Generic Name Dose Route Start Last Admin
Trade Name Freq PRN Reason Stop Dose Admin
Acetaminophen 650 mg 06/29/24 06:48
Acetaminophen 650 Mg Rectal Suppository RECTAL 07/27/24 06:47
Q4HPRN PRN
MCGHEE, mild pain, or temp >100.4F
Acetaminophen 650 mg 06/29/24 06:48
Acetaminophen 325 Mg Tablet PO 07/27/24 06:47
Q4HPRN PRN
MCGHEE, mild pain, or temp >100.4F
Atorvastatin Calcium 40 mg 06/29/24 22:00
Atorvastatin (Lipitor) 40 Mg Tablet PO 07/27/24 21:59
HS SOFIA
Dabigatran 150 mg 06/29/24 08:00 06/29/24 07:54
Dabigatran Etexilate (Pradaxa) 150 Mg Capsule PO 07/27/24 07:59 150 mg
BID SOFIA Administration
Dofetilide 250 mcg 06/29/24 08:00 06/29/24 07:54
Dofetilide 250 Mcg Capsule PO 07/27/24 07:59 250 mcg
BID SOIFA Administration
Isosorbide Mononitrate 60 mg 06/29/24 08:00 06/29/24 07:54
Isosorbide Mononitrate 60 Mg Extended Release Tablet PO 07/27/24 07:59 60 mg
DAILY SOFIA Administration
Levothyroxine Sodium 112 mcg 06/29/24 08:00 06/29/24 07:54
Levothyroxine 112 Mcg Tablet PO 07/27/24 07:59 112 mcg
DAILY@0600 SOFIA Administration
Metoprolol Succinate 50 mg 06/29/24 22:00
Metoprolol 50 Mg Extended Release Tablet PO 07/27/24 21:59
HS SOFIA
Metoprolol Succinate 100 mg 06/29/24 08:00 06/29/24 07:54
Metoprolol 100 Mg Extended Release Tablet PO 07/27/24 07:59 100 mg
DAILY SOFIA Administration
Nifedipine 60 mg 06/29/24 08:00 06/29/24 07:54
Nifedipine 60 Mg Extended Release Tablet PO 07/27/24 07:59 60 mg
BID SOFIA Administration
Pantoprazole Sodium 20 mg 06/29/24 08:00 06/29/24 07:54
Pantoprazole 20 Mg Delayed Release Tablet PO 07/27/24 07:59 20 mg
BID SOFIA Administration
Sertraline HCl 25 mg 06/29/24 08:00 06/29/24 07:54
Sertraline 25 Mg Tablet PO 07/27/24 07:59 25 mg
DAILY SOFIA Administration
Sodium Chloride 0 flush 06/29/24 07:00
Sodium Chloride 0.9% (Flush) Syringe IV 07/27/24 06:59
PER PROTOCOL SOFIA
Ursodiol 600 mg 06/29/24 08:00 06/29/24 07:55
Ursodiol 300 Mg Capsule PO 07/27/24 07:59 600 mg
DAILY SOFIA Administration
Ursodiol 300 mg 06/29/24 22:00
Ursodiol 300 Mg Capsule PO 07/27/24 21:59
HS SOFIA
Valsartan 80 mg 06/29/24 08:00 06/29/24 07:54
Valsartan 80 Mg Tablet PO 07/27/24 07:59 80 mg
DAILY SOFIA Administration
Home Medications
-
Home Medications
nifedipine 60 mg tablet,extended release 60 mg PO BID Blood pressure 06/06/16
ursodiol 300 mg capsule 300 mg PO HS Urinary issue 01/23/17
ursodiol 300 mg capsule 600 mg PO DAILY Urinary issue 01/23/17
dabigatran etexilate 150 mg capsule (Pradaxa) 150 mg PO BID #60 caps 08/04/21
isosorbide mononitrate 60 mg tablet,extended release 24 hr 60 mg PO DAILY CHEST PAIN 05/18/22
metoprolol succinate 100 mg tablet,extended release 24 hr 100 mg PO DAILY #30 tabs 05/28/22
cholecalciferol (vitamin D3) 50 mcg (2,000 unit) capsule (Vitamin D3) 50 mcg PO DAILY Supplement 06/21/23
levothyroxine 112 mcg tablet 112 mcg PO DAILY Thyroid 06/21/23
propranolol 20 mg tablet 20 mg PO Q4HPRN PRN a fib 06/23/23
atorvastatin 40 mg tablet 40 mg PO HS 06/29/23
calcium carbonate 500 mg PO DAILY 12/07/23
furosemide 20 mg tablet 20 mg PO DAILY PRN swelling #30 tabs 12/07/23
pantoprazole 20 mg tablet,delayed release (Protonix) 20 mg PO BID 02/09/24
dofetilide 250 mcg capsule 250 mcg PO BID 02/16/24
metoprolol succinate 50 mg tablet,extended release 24 hr 50 mg PO HS 06/29/24
sertraline 25 mg tablet (Zoloft) 25 mg PO DAILY 06/29/24
valsartan PO DAILY 06/29/24
--- NOTE | 2024-06-29 11:26 | W.PN.UPDATE ---
Update Note
Progress Note Update
Seen and examined independent of overnight physician.
States of falls at home and being worked up for neuromuscular dysfunction as outpatient
States of mild headache
General: Well Developed, Well Nourished, No Apparent Distress and Comfortable
HEENT: NormoCephalic, Anicteric, Moist mucous membranes and Atraumatic
Respiratory: Clear
Cardiac: S1/S2 and Regular Rhythm
Breast: Deferred by me
GI: Soft, Non Tender, Non Distended and Normal Bowel Sounds
Rectal: Deferred by Provider
Genito-urinary: Deferred by me
Musculoskeletal: No Clubbing, No Cyanosis and No Edema
Skin: Warm
Neuro: AO x 3, Nonfocal/grossly intact and Cranial Nerves Intact; No Facial Droop or Tremors
Hematologic/Lymphatic: No Lymphadenopathy
Psych: Calm
IMPRESSION:
84 y.o female with h/o paroxysmal atrial fibrillation presenting to ED following a mechanical fall and also had outpatient MRI showing 2 small right frontal/frontoparietal subacute infarcts. No clear history to correlate timing of infarcts with any
symptoms. Given good historian and history of compliance with anticoagulation there is concern for failure. However, patient also has history of PAD and carotid artery disease with prior intervention. She reported possible transient attack months
ago. She has hypertension, hyperlipidemia as well.
PLAN:
Subacute stroke - Possibly a slient cerebral infarction related to AF vs stroke related to other factors. Currently NIHSS = 0. Fall without evidence of intracranial hemorrhage.
- cholesterol lowering diet
- will continue dabigatran for now
- check blood vessels via mra head/neck (iodine contrast allergy)
- cardiovascular panel and a1c
- subacute stroke appears well complete, will continue residential ac with pradaxa
- question of antiplatelet therapy pending neuro eval
- continue statin
- PT/OT evaluation
- neurology consultation
HTN
- continue management with valsartan/nifedipine
- continue imdur
- continue metoprolol
Persistent AFIB - rate controlled currently
Sick sinus syndrome status post pacemaker
- continue pradaxa and Tikosyn
- metoprolol 100 am and 50 hs for rat control
- follows w/Dr Linton as outpatient.
CAD status post stents
Continue with statin and beta-andrez and isosorbide mononitrate
Hx chronically occluded right ICA
Follows with Dr. Veloz
Hyperlipidemia
Continue statin
Ambulatory dysfunction with balance and gait disturbances
Follows with neurology as outpatient
Degenerative disc disease
Spinal stenosis
Primary biliary cirrhosis
GERD
Small hiatal hernia
DVT PPX - on pradaxa
Code status - full code
PT/OT-SNF vs. ARB. monitor for further recs. CM for placement
[2024-06-29 12:31] LABS: Glycohemoglobin (HgbA1c) 5.9 % (4.0-5.6)
[2024-06-29] MEDS: TYLENOL 650 MG PO ×2 (12:49→20:23)
--- NOTE | 2024-06-29 15:15 | CM ---
CM met with pt bedside
Pt resides alone and is independent with personal care and ambulation, drives+
Utilizes a SPC in the community
Dtr assists with laundry in the basement
PCP- R[facility] Smith
Rx- [facility] [address]
PT/OT following with acute vs SNF recs
PACs provided, [facility] is 1st choice
Backup SNF referrals sent
Pt will require auth
PMR requested
Discharge Disposition- acute vs SNF
--- NOTE | 2024-06-29 18:00 | PTCARENOTE ---
Pt from ED, AAOx3, denying any pain, no headache/dizziness. NIHSS 0. A-paced on telemetry. See shift assessment for further detail. Oriented pt to rm, fall risk, ringing call lopez for assist, plan of care, stroke education packet etc- pt verbalized
understanding. Call lopez within reach, will monitor.
[2024-06-29] MEDS: LIPITOR 40 MG PO (22:56)
[2024-06-29] MEDS: ACTIGALL 300 MG PO (22:57)
[2024-06-29] MEDS: TOPROL XL 50 MG PO (22:58)
[2024-06-30] MEDS: SYNTHROID 112 MCG PO (03:28)
[2024-06-30 03:30] VITALS: BP 124/63
[2024-06-30 07:40] VITALS: BP 174/64
[2024-06-30 07:43] LABS: HDL Cholesterol 45 mg/dl; LDL Cholesterol, Calculated 78 mg/dl; Total Cholesterol 146 mg/dl (50-199); Triglyceride 117 mg/dl (10-149); Very Low Density Lipoprotein 23 mg/dl (0-30)
[2024-06-30] MEDS: PRADAXA 150 MG PO ×2 (08:08→21:03)
[2024-06-30] MEDS: IMDUR (EXTENDED RELEASE) 60 MG PO (08:08)
[2024-06-30] MEDS: PROTONIX 20 MG PO ×2 (08:08→21:04)
[2024-06-30] MEDS: DIOVAN 80 MG PO (08:09)
[2024-06-30] MEDS: ZOLOFT 25 MG PO (08:09)
[2024-06-30] MEDS: ACTIGALL 600 MG PO (08:09)
[2024-06-30] MEDS: PROCARDIA XL (EXTENDED RELEASE) 60 MG PO ×2 (08:09→21:04)
[2024-06-30] MEDS: TIKOSYN 250 MCG PO ×2 (08:10→21:04)
[2024-06-30] MEDS: TOPROL XL 100 MG PO (08:10)
--- NOTE | 2024-06-30 08:28 | W.PN.HOSP.TC ---
Today's Communication/Plan
-
MRA head and neck
ECHO
PT/OT
plan to start Sinemet
Assessment / Plan
Assessment / Plan
IMPRESSION:
84 y.o female with h/o paroxysmal atrial fibrillation presenting to ED following a mechanical fall and also had outpatient MRI showing 2 small right frontal/frontoparietal subacute infarcts. No clear history to correlate timing of infarcts with any
symptoms. Given good historian and history of compliance with anticoagulation there is concern for failure. However, patient also has history of PAD and carotid artery disease with prior intervention. She reported possible transient attack months
ago. She has hypertension, hyperlipidemia as well.
PLAN:
Subacute stroke right MCA distribution- Possibly a slient cerebral infarction related to AF vs stroke related to other factors. Currently NIHSS = 0. Fall without evidence of intracranial hemorrhage.
- cholesterol lowering diet
- will continue dabigatran for now
- check blood vessels via mra head/neck (iodine contrast allergy). With pacemaker plan to do imaging tomorrow.
- subacute stroke appears well complete, will continue snf ac with pradaxa
- question of antiplatelet therapy pending neuro eval
- continue statin. a1c 5.9
- PT/OT evaluation
- neurology following.
HTN primary
- continue management with valsartan/nifedipine
- continue imdur
- continue metoprolol
Persistent AFIB - rate controlled currently
Sick sinus syndrome status post pacemaker
- continue pradaxa and Tikosyn
- metoprolol 100 am and 50 hs for rat control
-Continue to monitor on telemetry.
- follows w/Dr Linton as outpatient.
CAD status post stents
Continue with statin and beta-andrez and isosorbide mononitrate
Hx chronically occluded right ICA
Follows with Dr. Veloz
Hyperlipidemia
Continue statin
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
Follows with neurology as outpatient
Plan to start Sinemet per neurology
Degenerative disc disease
Spinal stenosis
Primary biliary cirrhosis
GERD
Small hiatal hernia
DVT PPX - on pradaxa
Code status - full code
PT/OT-SNF vs. ARB. Consult Physiatry pending completion of medical workup.
Anticipated Discharge: > 48 hours
Subjective/Interval History
-
Date of Service: June 30, 2024
watching TV
states of mild headache
tremors were noted earlier
Objective Data
-
Vital Signs:
Vital Signs
Temp Pulse Resp BP Pulse Ox
97.7 F 72 18 124/63 94
06/30/24 03:30 06/30/24 03:30 06/30/24 03:30 06/30/24 03:30 06/30/24 03:30
I&O
06/29/24 06/30/24 07/01/24
06:59 06:59 06:59
Intake Total 300 / 300
Balance 300 / 300
Physical Exam
-
General: Well Developed, Well Nourished, Comfortable and Conversant
HEENT: Normocephalic, Atraumatic, Nose Appears Normal and Ears Appear Normal
Respiratory: Clear to Auscultation and Non Labored Respirations; Negative Accessory Resp Muscle Use
Cardiac: Regular Rhythm and S1/S2
GI: Soft, Nontender, Nondistended and Normal Bowel Sounds
Skin: Warm and Dry
Neuro: Awake, Alert, Oriented, AO x 3 and Nonfocal/Grossly Intact
Psych: Calm and Intact Judgement/Insight
[2024-06-30 09:16] LABS: Blood Urea Nitrogen 24 mg/dl (7-17); Calcium 9.2 mg/dl (8.4-10.2); Carbon Dioxide 22 mmol/L (22-30); Chloride 104 mmol/L (98-107); Glucose 93 mg/dl (70-99); Potassium 4.7 mmol/L (3.5-5.1); Sodium 140 mmol/L (135-145); eGFR > 60.00
--- NOTE | 2024-06-30 09:25 | W.PN.NEURO.1 ---
Addendum entered and electronically signed by Steph Gage MD 06/30/24 10:59:
R NORI cortical infarcts
Original Note:
Today's Communication / Plan
-
.
Subjective/Objective
Subjective Data
Date of Service: June 30, 2024
Neurology follow-up note
Ms. Godfrey endorses progressive left hand stiffness and intermittent resting tremor.
Brain MRI without shun (06/27/2024)�punctuate right frontal/frontoparietal lobes subacute infarcts, severe bihemispheric leukoaraiosis.
CTA head/neck(11/06/2023)-Right proximal internal carotid artery occlusion near its origin to the level of the right MCA/no dissection.
LDL 78.
PMH: PA A-Fib, R ICA occlusion, R MCA stroke(07/2021), h/o left breast cancer, Primary biliary cirrhosis, PAD, CAD, SSS, DLP, CKD, hypothyroidism, GERD, ambulatory dysfunction
PSH: BL CEA, Left mastectomy, bilateral cataract surgery, PPM, renal artery/coronary PTCI
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
FH: Mother�lung cancer, father�coronary artery disease
All: Amiodarone, hydralazine, iodine, omeprazole, spironolactone
ROS: Constitutional: Negative. Negative for chills, fever and unexpected weight change.
HENT: Positive for hearing impairment,
Eyes: Negative. Negative for photophobia, pain and visual disturbance.
Respiratory: Negative for cough, choking and shortness of breath.
Cardiovascular: Negative for chest pain, palpitations and leg swelling.
Gastrointestinal: Negative for abdominal pain and vomiting.
Endocrine: Negative. Negative for cold intolerance.
Genitourinary: Positive urinary incontinence
Musculoskeletal: Negative for back pain, gait problem, neck pain and neck stiffness.
Skin: Negative for rash.
Allergic/Immunologic: Negative. Negative for immunocompromised state.
Neurological: Positive for imbalance, left hand weakness, shuffling gait, tremor, bradykinesias
Psychiatric/Behavioral: Negative for behavioral problems, confusion and hallucinations.
General: Well developed. In no acute distress.
Cardio: irregular rate and rhythm . Extremities are without cyanosis or edema.
Neuro:
Mental Status: Alert, oriented to person, place, and date. Normal attention and recall. Mild expressive aphasia. Good fund of knowledge. Follows complex requests across the midline. Comprehension, naming, and repetition intact.
Cranial Nerves: Pupils are equally round, surgical. EOMs full. Visual ayala full to confrontation. No ptosis. No nystagmus. V1-V3 intact to light touch and pinprick bilaterally, symmetric. Face symmetric. Poor hearing AU. The palate
elevated well. SCMs and traps 5/5. Tongue midline. No dysarthria.
Motor: Increased motor tone in the right wrist. No pronator or arm drift. Strength 5/5 throughout except for mild right dorsiflexion weakness. No clonus.
Sensory: Normal vibration at the ankles.
Coordination: No dysmetria. Left hand resting tremor.
Gait: deferred
Assessment and Plan:
I. Subacute right MCA distribution embolic infarcts. Chronic R ICA occlusion. R carotid stump syndrome?.
II. PA A-Fib
III. Parkinsonism
-Continue Telemetry monitoring
-Fall precautions
-Cardiology evaluation for Watchman procedure
-Continue Pradaxa
-LDL goal�less than 100
-Start Sinemet 25/100 half a tablet every 8 hours. Titration to 1 tablet every 8 hours as tolerated in 3-5 days.
-PT.
-Vascular surgery consult
-DVT prophylaxis.
I personally reviewed all radiology and labs along with past medical records pertinent to current medical problems. Total time spent in patient care is 35 minutes.
Thank you for allowing us to participate in the care of this patient. Please do not hesitate to contact us with any questions or concerns
Objective Data
Vital Signs
Temp Pulse Resp BP Pulse Ox
36.5 C 72 18 124/63 94
06/30/24 03:30 06/30/24 03:30 06/30/24 03:30 06/30/24 03:30 06/30/24 03:30
Lab Results
06/28/24 18:14
06/30/24 08:45
PT 19.7 Sec (11.4-14.6) H 06/28/24 18:14
INR 1.64 06/28/24 18:14
APTT 52.6 Sec (23.4-35.0) H 06/28/24 18:14
Sodium Cancelled 06/30/24 08:45
Potassium Cancelled 06/30/24 08:45
BUN Cancelled 06/30/24 08:45
Glucose Cancelled 06/30/24 08:45
Calcium Cancelled 06/30/24 08:45
LDL Cholesterol, Calc 78 mg/dl 06/30/24 05:26
Patient Allergies
adhesive Allergy (Verified 06/28/24 18:01)
Redness, rash
amiodarone Allergy (Verified 06/28/24 18:01)
tremors
diltiazem Allergy (Verified 06/28/24 18:01)
Rash
hydralazine [Hydralazine] Allergy (Verified 06/28/24 18:01)
RAMSEY, Fatigue, Dizziness
Iodinated Contrast Media [Iodinated Contrast Media - IV Dye] Allergy (Verified 06/28/24 18:01)
Rash and Warmth
iodine [Iodine] Allergy (Verified 06/28/24 18:01)
rash with ivp dye
omeprazole Allergy (Verified 06/28/24 18:01)
Nausea
spironolactone Allergy (Verified 06/28/24 18:01)
kidney failure- Hypercalcemia
Vital Signs and Labs
-
Vital Signs and Labs:
Vital Signs
Temp Pulse Resp BP Pulse Ox
36.7 C 72 16 174/64 97
06/30/24 07:40 06/30/24 07:40 06/30/24 07:40 06/30/24 07:40 06/30/24 07:40
Lab Results
06/28/24 18:14
06/30/24 08:45
PT 19.7 Sec (11.4-14.6) H 06/28/24 18:14
INR 1.64 06/28/24 18:14
APTT 52.6 Sec (23.4-35.0) H 06/28/24 18:14
Sodium Cancelled 06/30/24 08:45
Potassium Cancelled 06/30/24 08:45
BUN Cancelled 06/30/24 08:45
Glucose Cancelled 06/30/24 08:45
Calcium Cancelled 06/30/24 08:45
LDL Cholesterol, Calc 78 mg/dl 06/30/24 05:26
Medications
-
Medications:
Generic Name Dose Route Start Last Admin
Trade Name Freq PRN Reason Stop Dose Admin
Acetaminophen 650 mg 06/29/24 06:48
Acetaminophen 650 Mg Rectal Suppository RECTAL 07/27/24 06:47
Q4HPRN PRN
MCGHEE, mild pain, or temp >100.4F
Acetaminophen 650 mg 06/29/24 06:48 06/29/24 20:23
Acetaminophen 325 Mg Tablet PO 07/27/24 06:47 650 mg
Q4HPRN PRN Administration
MCGHEE, mild pain, or temp >100.4F
Atorvastatin Calcium 40 mg 06/29/24 22:00 06/29/24 22:56
Atorvastatin (Lipitor) 40 Mg Tablet PO 07/27/24 21:59 40 mg
HS SOFIA Administration
Dabigatran 150 mg 06/29/24 08:00 06/30/24 08:08
Dabigatran Etexilate (Pradaxa) 150 Mg Capsule PO 07/27/24 07:59 150 mg
BID SOFIA Administration
Dofetilide 250 mcg 06/29/24 08:00 06/30/24 08:10
Dofetilide 250 Mcg Capsule PO 07/27/24 07:59 250 mcg
BID SOFIA Administration
Isosorbide Mononitrate 60 mg 06/29/24 08:00 06/30/24 08:08
Isosorbide Mononitrate 60 Mg Extended Release Tablet PO 07/27/24 07:59 60 mg
DAILY SOFIA Administration
Levothyroxine Sodium 112 mcg 06/29/24 08:00 06/30/24 03:28
Levothyroxine 112 Mcg Tablet PO 07/27/24 07:59 112 mcg
DAILY@0600 SOFIA Administration
Metoprolol Succinate 50 mg 06/29/24 22:00 06/29/24 22:58
Metoprolol 50 Mg Extended Release Tablet PO 07/27/24 21:59 50 mg
HS SOFIA Administration
Metoprolol Succinate 100 mg 06/29/24 08:00 06/30/24 08:10
Metoprolol 100 Mg Extended Release Tablet PO 07/27/24 07:59 100 mg
DAILY SOFIA Administration
Nifedipine 60 mg 06/29/24 08:00 06/30/24 08:09
Nifedipine 60 Mg Extended Release Tablet PO 07/27/24 07:59 60 mg
BID SOFIA Administration
Pantoprazole Sodium 20 mg 06/29/24 08:00 06/30/24 08:08
Pantoprazole 20 Mg Delayed Release Tablet PO 07/27/24 07:59 20 mg
BID SOFIA Administration
Sertraline HCl 25 mg 06/29/24 08:00 06/30/24 08:09
Sertraline 25 Mg Tablet PO 07/27/24 07:59 25 mg
DAILY SOFIA Administration
Sodium Chloride 0 flush 06/29/24 07:00
Sodium Chloride 0.9% (Flush) Syringe IV 07/27/24 06:59
PER PROTOCOL SOFIA
Ursodiol 600 mg 06/29/24 08:00 06/30/24 08:09
Ursodiol 300 Mg Capsule PO 07/27/24 07:59 600 mg
DAILY SOFIA Administration
Ursodiol 300 mg 06/29/24 22:00 06/29/24 22:57
Ursodiol 300 Mg Capsule PO 07/27/24 21:59 300 mg
HS SOFIA Administration
Valsartan 80 mg 06/29/24 08:00 06/30/24 08:09
Valsartan 80 Mg Tablet PO 07/27/24 07:59 80 mg
DAILY SOFIA Administration
Home Medications
-
Home Medications
nifedipine 60 mg tablet,extended release 60 mg PO DAILY Blood pressure 06/06/16
ursodiol 300 mg capsule 300 mg PO HS Urinary issue 01/23/17
ursodiol 300 mg capsule 600 mg PO DAILY Urinary issue 01/23/17
dabigatran etexilate 150 mg capsule (Pradaxa) 150 mg PO BID #60 caps 08/04/21
isosorbide mononitrate 60 mg tablet,extended release 24 hr 60 mg PO DAILY CHEST PAIN 05/18/22
metoprolol succinate 100 mg tablet,extended release 24 hr 100 mg PO DAILY #30 tabs 05/28/22
cholecalciferol (vitamin D3) 50 mcg (2,000 unit) capsule (Vitamin D3) 50 mcg PO DAILY Supplement 06/21/23
levothyroxine 112 mcg tablet 112 mcg PO DAILY Thyroid 06/21/23
propranolol 20 mg tablet 20 mg PO Q4HPRN PRN a fib 06/23/23
atorvastatin 40 mg tablet 40 mg PO HS 06/29/23
calcium carbonate 500 mg PO DAILY 12/07/23
pantoprazole 20 mg tablet,delayed release (Protonix) 20 mg PO BID 02/09/24
dofetilide 250 mcg capsule 250 mcg PO BID 02/16/24
acetaminophen 325 mg tablet 325 mg PO DAILYPRN PRN mild pain 06/29/24
furosemide 20 mg tablet 20 mg PO DAILYPRN PRN swelling 06/29/24
guar gum 1 tbsp PO DAILY 06/29/24
metoprolol succinate 50 mg tablet,extended release 24 hr 50 mg PO HS 06/29/24
sertraline 25 mg tablet (Zoloft) 25 mg PO DAILY 06/29/24
valsartan 80 mg tablet 80 mg PO DAILY 06/29/24
[2024-06-30] MEDS: TYLENOL 650 MG PO ×2 (09:35→22:38)
[2024-06-30 11:10] VITALS: BP 132/56
[2024-06-30 15:20] VITALS: BP 136/58
[2024-06-30] MEDS: SINEMET 25-100 0.5 TABLET PO ×2 (16:42→22:38)
[2024-06-30] MEDS: MIRALAX 17 GRAMS PO (18:21)
[2024-06-30 19:58] VITALS: BP 153/55
[2024-06-30] MEDS: TOPROL XL 50 MG PO (21:04)
[2024-06-30] MEDS: ACTIGALL 300 MG PO (21:04)
[2024-06-30] MEDS: LIPITOR 40 MG PO (21:04)
[2024-06-30 23:51] VITALS: BP 157/99
[2024-07-01] VITALS (7 sets, daily range): BP systolic 111–149; BP diastolic 47–61; PULSE 71; O2SAT 98
[2024-07-01] MEDS: SYNTHROID 112 MCG PO (06:07)
[2024-07-01 07:28] LABS: % Basophils 1.3 % (0-2); % Eosinophils 2.6 % (0-6); % Immature Granulocytes 0.3 % (0-0.5); % Lymphocytes 21.9 % (20.5-51.1); % Monocytes 15.3 % (1.7-9.3); % Neutrophils 58.6 % (42.2-75.2); Absolute Basophils 0.1 10^3/uL (0-0.2); Absolute Eosinophils 0.2 10^3/uL (0-0.7); Absolute Lymphocytes 1.7 10^3/uL (1.2-3.4); Absolute Monocytes 1.2 10^3/uL (0.1-0.6); Absolute Neutrophils 4.6 10^3/uL (1.4-6.5); Hematocrit 36.9 % (37.0-47.0); Hemoglobin 12.1 g/dL (12.0-16.0); Mean Corp Hgb Conc. 32.8 g/dL (33.0-37.0); Mean Corpuscular Hgb 29.3 pg (27.0-31.0); Mean Corpuscular Volume 89.3 fL (81.0-99.0); Mean Platelet Volume 11.4 fL (7.4-10.4); Nucleated Red Blood Cells % 0 %; Platelet Count 236 10^3/uL (130-400); Red Blood Cell Count 4.13 10^6/uL (4.20-5.40); Red Cell Dist. Width 14.4 % (11.5-14.5); White Blood Cell Count 7.8 10^3/uL (4.8-10.8)
[2024-07-01 07:47] LABS: Blood Urea Nitrogen 20 mg/dl (7-17); Calcium 9.2 mg/dl (8.4-10.2); Carbon Dioxide 26 mmol/L (22-30); Chloride 103 mmol/L (98-107); Estimated Creatinine Clearance 48 ml/min; Glucose 91 mg/dl (70-99); Potassium 4.6 mmol/L (3.5-5.1); Sodium 139 mmol/L (135-145); eGFR > 60.00
[2024-07-01] MEDS: PROCARDIA XL (EXTENDED RELEASE) 60 MG PO ×2 (08:28→20:08)
[2024-07-01] MEDS: TIKOSYN 250 MCG PO ×2 (08:28→20:03)
[2024-07-01] MEDS: SINEMET 25-100 0.5 TABLET PO ×3 (08:28→21:10)
[2024-07-01] MEDS: PROTONIX 20 MG PO ×2 (08:28→20:06)
[2024-07-01] MEDS: IMDUR (EXTENDED RELEASE) 60 MG PO (08:29)
[2024-07-01] MEDS: TOPROL XL 100 MG PO (08:29)
[2024-07-01] MEDS: DIOVAN 80 MG PO (08:29)
[2024-07-01] MEDS: ACTIGALL 600 MG PO (08:29)
[2024-07-01] MEDS: PRADAXA 150 MG PO ×2 (08:29→20:06)
[2024-07-01] MEDS: ZOLOFT 25 MG PO (08:29)
[2024-07-01] MEDS: FLUSH (NSS) 1 FLUSH IV (08:30)
[2024-07-01] MEDS: MIRALAX 17 GRAMS PO (08:30)
--- NOTE | 2024-07-01 08:40 | CON.VAS ---
Consultation
Consultation Request
Date/Time Consultation Performed: 07/01/24
Requesting Provider: Steph Gage MD
Performing Provider: Noemy Mota NP-C for Anibal Veloz MD
Reason for Consultation: Right chronic ICA occlusion in the setting of subacute stroke
Medical History
-
Chief Complaint: Gait dysfunction status post fall
History of Present Illness:
This is an 84-year-old female with significant past medical history of atrial fibrillation, CAD, COPD, CVA, GERD, hypertension, hypercholesterolemia, hypothyroidism, carotid stenosis, and sick sinus syndrome who presented to [facility] on
06/28/2024 from the encouragement of outpatient neurologist as outpatient brain MRI demonstrated subacute infarcts in the right frontal/frontoparietal lobes and recent mechanical fall. Patient is known to our vascular surgery group for history of
right carotid endarterectomy by Dr. Dylan Valdes and is followed in the outpatient setting by Dr. Anibal Veloz. Additionally, patient has history of left carotid enterectomy by Dr. Busby. She was last seen in the outpatient setting with Dr. Barnett
Magdiel roughly six months ago, new finding of occluded right carotid was discovered at that time and confirmed with CT angiogram imaging. Dr. Veloz suspected either an embolic or an acute dissection type event but regardless, nothing invasive could be
offered. Patient denies any lateralizing focal symptoms. The only thing she notes is that in February she had an episode where she had sudden weakness of both legs. No unilateral numbness or weakness. In addition she notes she fell the day prior
to her admission. However her fall she notes was not prompted by any weakness or lightheadedness or dizziness or any other antecedent symptoms but rather she just tripped. Her exam is nonfocal. No other major vascular findings.
Past Medical History
Past Medical History: Arrhythmias (Paroxysmal atrial fibrillation), CAD, COPD, CVA, GERD, HTN, Hypercholesterolemia, Hypothyroidism and Other (Biliary cirrhosis, anemia, SSS)
Past Surgical History: Cardiac (PPM, cardiac catheterization with complex PCI to RCA) and Other (Right carotid endarterectomy with bovine pericardial patch angioplasty (2017), Left carotid endarterectomy with patch angioplasty (2016), Left temporal
artery biopsy (2013), Left total mastectomy and left axillary sentinel lymph node biopsy (2013), renal stent )
Social History
Tobacco: Non-Smoker
Alcohol: None
Drug: None
Personal: Single
Living: Alone
Employment: Retired
Allergies / Home Medications
Allergy/AdvReac Type Severity Reaction Status Date / Time
adhesive Allergy Redness, Verified 06/28/24 18:01
rash
amiodarone Allergy tremors Verified 06/28/24 18:01
diltiazem Allergy Rash Verified 06/28/24 18:01
hydralazine [Hydralazine] Allergy RAMSEY, Verified 06/28/24 18:01
Fatigue,
Dizziness
Iodinated Contrast Media Allergy Rash and Verified 06/28/24 18:01
[Iodinated Contrast Media - Warmth
IV Dye]
iodine [Iodine] Allergy rash with Verified 06/28/24 18:01
ivp dye
omeprazole Allergy Nausea Verified 06/28/24 18:01
spironolactone Allergy kidney Verified 06/28/24 18:01
failure-
Hypercalcemia
�Medication �Instructions �Recorded �Confirmed �Type
nifedipine 60 mg tablet,extended 60 mg PO DAILY Blood pressure 06/06/16 06/29/24 History
release
ursodiol 300 mg capsule 300 mg PO HS Urinary issue 01/23/17 06/29/24 History
ursodiol 300 mg capsule 600 mg PO DAILY Urinary issue 01/23/17 06/29/24 History
dabigatran etexilate 150 mg 150 mg PO BID #60 caps 08/04/21 06/29/24 Rx
capsule (Pradaxa)
isosorbide mononitrate 60 mg 60 mg PO DAILY CHEST PAIN 05/18/22 06/29/24 History
tablet,extended release 24 hr
metoprolol succinate 100 mg 100 mg PO DAILY #30 tabs 05/28/22 06/29/24 Rx
tablet,extended release 24 hr
cholecalciferol (vitamin D3) 50 50 mcg PO DAILY Supplement 06/21/23 06/29/24 History
mcg (2,000 unit) capsule (Vitamin
D3)
levothyroxine 112 mcg tablet 112 mcg PO DAILY Thyroid 06/21/23 06/29/24 History
propranolol 20 mg tablet 20 mg PO Q4HPRN PRN a fib 06/23/23 06/29/24 History
atorvastatin 40 mg tablet 40 mg PO HS 06/29/23 06/29/24 History
calcium carbonate 500 mg PO DAILY 12/07/23 06/29/24 History
pantoprazole 20 mg tablet,delayed 20 mg PO BID 02/09/24 06/29/24 History
release (Protonix)
dofetilide 250 mcg capsule 250 mcg PO BID 02/16/24 06/29/24 History
acetaminophen 325 mg tablet 325 mg PO DAILYPRN PRN mild pain 06/29/24 06/29/24 History
furosemide 20 mg tablet 20 mg PO DAILYPRN PRN swelling 06/29/24 06/29/24 History
guar gum 1 tbsp PO DAILY 06/29/24 06/29/24 History
metoprolol succinate 50 mg 50 mg PO HS 06/29/24 06/29/24 History
tablet,extended release 24 hr
sertraline 25 mg tablet (Zoloft) 25 mg PO DAILY 06/29/24 06/29/24 History
valsartan 80 mg tablet 80 mg PO DAILY 06/29/24 06/29/24 History
Review of Systems
-
History Source: Patient
Constitutional: Reports Fatigue
EENT: Reports No Symptoms
Respiratory: Reports No Symptoms
Cardiac: Reports No Symptoms
Vascular: Denies Leg Pain / Claudication
Abdomen/GI: Reports No Symptoms
: Reports No Symptoms
Musculoskeletal: Reports No Symptoms
Skin: Reports No Symptoms
Neurological: Reports Weakness (Bilateral lower extremity weakness, nonspecific difficulty with ambulating) and Other
Endocrine: Reports No Symptoms
Physical Exam
Vital Signs
Temp Pulse Resp BP Pulse Ox
97.6 F 73 16 129/55 96
07/01/24 07:45 07/01/24 07:45 07/01/24 07:45 07/01/24 07:45 07/01/24 07:45
Lab Results
07/01/24 06:29
07/01/24 06:29
Physical Exam
General: No Apparent Distress
HEENT: Normocephalic, Anicteric and Atraumatic
Respiratory: Non Labored Respirations
Cardiac: Negative JVD
GI: Soft, Non Tender and Non Distended
Musculoskeletal: No Edema
Skin: Warm
Neuro: AO x 3
Assessment / Plan
-
Assessment: 84-year-old female with chronic right ICA occlusion
Plan:
Patient was seen and examined with Dr. Anibal Veloz, reviewed HPI and physical exam, would not consider this presentation stump syndrome or carotid stump embolization from an occluded carotid. As it would be atypical to present this far distally to
the acute occlusive problem given that the thrombus is likely formed at this point. We will obtain carotid duplex imaging to make sure the left carotid has not developed a stenosis or has some irregularity given that likely both hemispheres now
perfused by the left carotid.
I performed this shared service with the attending. I evaluated the patient [id number] and have entered clinical documentation as shown in the encounter note. I performed the following component(s):�history and physical exam. Note that medical
decision making is not final until attested by vascular attending.
--- NOTE | 2024-07-01 09:30 | W.PN.NEURO.1 ---
Today's Communication / Plan
-
Continue patient on usual dabigatran, risk of adding aspirin outweighs benefit as there is no scientific data to support additional therapy in that way.
Mildly elevated LDL at 78 despite normal cholesterol level, would advance atorvastatin from 40 mg to 80 mg although no clear scientific evidence that this will be of assistance in a person of this advanced age
Would not check MRA head and neck as results of same will not alter current therapies, further, the patient underwent similar imaging by [facility] in October 2023 which failed to demonstrate a surgically remediatable lesion.
Echocardiogram would not be of significant benefit in this person of advanced age she would not be a candidate for procedural therapy if patent foramen ovale was found
Neuro Assessment/Plan
Assessment
Brain MRI without shun (06/27/2024)�punctuate right frontal/frontoparietal lobes subacute infarcts, severe bihemispheric leukoaraiosis
CTA head/neck(11/06/2023)-Right proximal internal carotid artery occlusion near its origin to the level of the right MCA/no dissection.
I. Subacute right MCA distribution embolic infarcts. Likely etiology�artery to artery athero-embolism
II. Chronic right ICA occlusion
III. Paroxysmal A-Fib
Plan
Continue patient on usual dabigatran, risk of adding aspirin outweighs benefit as there is no scientific data to support additional therapy in that way.
Mildly elevated LDL at 78 despite normal cholesterol level, would advance atorvastatin from 40 mg to 80 mg although no clear scientific evidence that this will be of assistance in a person of this advanced age
Would not check MRA head and neck as results of same will not alter current therapies, further, the patient underwent similar imaging by [facility] in October 2023 which failed to demonstrate a surgically remediatable lesion.
Echocardiogram would not be of significant benefit in this person of advanced age she would not be a candidate for procedural therapy if patent foramen ovale was found
Rehabilitation evaluations
Medical educational materials to be provided
Will follow as needed
Subjective/Objective
Subjective Data
Date of Service: July 01, 2024
Objective Data
Vital Signs
Temp Pulse Resp BP Pulse Ox
36.4 C 73 16 129/55 96
07/01/24 07:45 07/01/24 07:45 07/01/24 07:45 07/01/24 07:45 07/01/24 07:45
Lab Results
07/01/24 06:29
07/01/24 06:29
PT 19.7 Sec (11.4-14.6) H 06/28/24 18:14
INR 1.64 06/28/24 18:14
APTT 52.6 Sec (23.4-35.0) H 06/28/24 18:14
Sodium 139 mmol/L (135-145) 07/01/24 06:29
Potassium 4.6 mmol/L (3.5-5.1) 07/01/24 06:29
BUN 20 mg/dl (7-17) H 07/01/24 06:29
Glucose 91 mg/dl (70-99) 07/01/24 06:29
Calcium 9.2 mg/dl (8.4-10.2) 07/01/24 06:29
LDL Cholesterol, Calc 78 mg/dl 06/30/24 05:26
Patient Allergies
adhesive Allergy (Verified 06/28/24 18:01)
Redness, rash
amiodarone Allergy (Verified 06/28/24 18:01)
tremors
diltiazem Allergy (Verified 06/28/24 18:01)
Rash
hydralazine [Hydralazine] Allergy (Verified 06/28/24 18:01)
RAMSEY, Fatigue, Dizziness
Iodinated Contrast Media [Iodinated Contrast Media - IV Dye] Allergy (Verified 06/28/24 18:01)
Rash and Warmth
iodine [Iodine] Allergy (Verified 06/28/24 18:01)
rash with ivp dye
omeprazole Allergy (Verified 06/28/24 18:01)
Nausea
spironolactone Allergy (Verified 06/28/24 18:01)
kidney failure- Hypercalcemia
Data Reviewed
-
MRI Head: Report Reviewed
Past History
Past History
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
ED Past Surgical History: Cardiac (Pacemaker, PTCI) and Other (Mastectomy L, renal artery PTCI)
Social History
Tobacco: Former smoker
Alcohol: Occasional
Drug: None
Personal: Other
Living: alone
Employment: Retired
Family History
Family History: Other
Medications
-
Medications:
Generic Name Dose Route Start Last Admin
Trade Name Freq PRN Reason Stop Dose Admin
Acetaminophen 650 mg 06/29/24 06:48
Acetaminophen 650 Mg Rectal Suppository RECTAL 07/27/24 06:47
Q4HPRN PRN
MCGHEE, mild pain, or temp >100.4F
Acetaminophen 650 mg 06/29/24 06:48 06/30/24 22:38
Acetaminophen 325 Mg Tablet PO 07/27/24 06:47 650 mg
Q4HPRN PRN Administration
MCGHEE, mild pain, or temp >100.4F
Atorvastatin Calcium 40 mg 06/29/24 22:00 06/30/24 21:04
Atorvastatin (Lipitor) 40 Mg Tablet PO 07/27/24 21:59 40 mg
HS SOFIA Administration
Carbidopa/Levodopa 0.5 tablet 06/30/24 16:00 07/01/24 08:28
Carbidopa (25 Mg)/Levodopa (100 Mg) Regular Release Tablet PO 07/28/24 15:59 0.5 tablet
TID SOFIA Administration
Dabigatran 150 mg 06/29/24 08:00 07/01/24 08:29
Dabigatran Etexilate (Pradaxa) 150 Mg Capsule PO 07/27/24 07:59 150 mg
BID SOFIA Administration
Dofetilide 250 mcg 06/29/24 08:00 07/01/24 08:28
Dofetilide 250 Mcg Capsule PO 07/27/24 07:59 250 mcg
BID SOFIA Administration
Isosorbide Mononitrate 60 mg 06/29/24 08:00 07/01/24 08:29
Isosorbide Mononitrate 60 Mg Extended Release Tablet PO 07/27/24 07:59 60 mg
DAILY SOFIA Administration
Levothyroxine Sodium 112 mcg 06/29/24 08:00 07/01/24 06:07
Levothyroxine 112 Mcg Tablet PO 07/27/24 07:59 112 mcg
DAILY@0600 SOFIA Administration
Metoprolol Succinate 50 mg 06/29/24 22:00 06/30/24 21:04
Metoprolol 50 Mg Extended Release Tablet PO 07/27/24 21:59 50 mg
HS SOFIA Administration
Metoprolol Succinate 100 mg 06/29/24 08:00 07/01/24 08:29
Metoprolol 100 Mg Extended Release Tablet PO 07/27/24 07:59 100 mg
DAILY SOFIA Administration
Nifedipine 60 mg 06/29/24 08:00 07/01/24 08:28
Nifedipine 60 Mg Extended Release Tablet PO 07/27/24 07:59 60 mg
BID SOFIA Administration
Pantoprazole Sodium 20 mg 06/29/24 08:00 07/01/24 08:28
Pantoprazole 20 Mg Delayed Release Tablet PO 07/27/24 07:59 20 mg
BID SOFIA Administration
Polyethylene Glycol 17 grams 06/30/24 18:00 07/01/24 08:30
Polyethylene Glycol Powder 17 Grams Packet PO 07/28/24 17:59 17 grams
DAILY SOFIA Administration
Sertraline HCl 25 mg 06/29/24 08:00 07/01/24 08:29
Sertraline 25 Mg Tablet PO 07/27/24 07:59 25 mg
DAILY SOFIA Administration
Sodium Chloride 0 flush 06/29/24 07:00 07/01/24 08:30
Sodium Chloride 0.9% (Flush) Syringe IV 07/27/24 06:59 1 flush
PER PROTOCOL SOFIA Administration
Ursodiol 600 mg 06/29/24 08:00 07/01/24 08:29
Ursodiol 300 Mg Capsule PO 07/27/24 07:59 600 mg
DAILY SOFIA Administration
Ursodiol 300 mg 06/29/24 22:00 06/30/24 21:04
Ursodiol 300 Mg Capsule PO 07/27/24 21:59 300 mg
HS SOFIA Administration
Valsartan 80 mg 06/29/24 08:00 07/01/24 08:29
Valsartan 80 Mg Tablet PO 07/27/24 07:59 80 mg
DAILY SOFIA Administration
[2024-07-01] MEDS: TYLENOL 650 MG PO ×2 (11:49→20:13)
[2024-07-01 11:57] LABS: Creatine Phosphokinase 45 U/L (30-135)
--- NOTE | 2024-07-01 12:21 | W.PN.UPDATE ---
Update Note
Progress Note Update
Seen and examined earlier this a.m. with [facility]. Full consultation to follow. Briefly 84-year-old female known to me from the outpatient setting. Prior history of left carotid endarterectomy by Dr. Busby, and right carotid endarterectomy by
Keisha. When last had seen her about 6 months ago, finding was noted of occluded right carotid. Was confirmed with CT angiogram imaging. Based on the fact that prior imaging had demonstrated wide patency of bilateral carotid endarterectomy
sites, I had favored that this was either an embolic or an acute dissection type event. Regardless, nothing invasive that I could offer at that point. Now presents based on MRI finding of subacute infarcts x 2 in the right hemisphere. Patient
denies any lateralizing focal symptoms. The only thing she notes is that in February she had an episode where she had sudden weakness of both legs. No unilateral numbness or weakness. In addition she notes she fell the day prior to her admission.
However her fall she notes was not prompted by any weakness or lightheadedness or dizziness or any other antecedent symptoms but rather she just tripped. Her exam is nonfocal. No other major vascular findings.
Plan/ I do not think she has had an acute vascular event here. I do not think this represents stump syndrome or carotid stump embolization from an occluded carotid. This would be atypical to present this far distally to the acute occlusive problem
given that the thrombus is likely formed at this point. Would favor getting carotid duplex imaging at this point to make sure the left carotid has not developed a stenosis or has some irregularity given that likely both hemispheres now perfused by
the left carotid.
--- NOTE | 2024-07-01 12:39 | CM ---
CM reviewed pt with Dr Whitt- anticipate dc later today
Discussion with PT/Qnig
Pt with phsycial improvements and VN now recommended
Bedside meeting with pt
She is in agreement with home with VN through [facility]
PT will issue new WW
She has local family who will provide support
GEORGE completed with pt- copy provided
Script for WW on chart
Dtr will transport home
Referred to [facility]- order on chart
Discharge Disposition- home with [facility] and new WW, dtr to transport
--- NOTE | 2024-07-01 12:49 | VNURNOTE ---
[employer] met with patient to discuss [facility] nurse/therapy, visits, schedule and homebound status. Patient is agreeable and understands that visits at home will be 2-3 x per week to assess and teach medical management.
[facility] brochure provided with contact information. Patient is aware that [facility] will contact them for start of care in 1-2 days after discharge from .
[facility] referral completed in [facility].
--- NOTE | 2024-07-01 15:43 | W.PN.HOSP.TC ---
Today's Communication/Plan
-
see note
possible d/c today if no further intervention needed
Assessment / Plan
Assessment / Plan
Subacute stroke involving right MCA distribution
- Possibly a silent cerebral infarction related to AF vs stroke related to other factors. Currently NIHSS = 0. Fall without evidence of intracranial hemorrhage.
- cholesterol lowering diet
- will continue dabigatran for now
- Neuro recommended against repeat MR or CT angiogram
- question of antiplatelet therapy pending neuro eval
- continue statin. a1c 5.9
- PT/OT recommended home-based physical therapy
- neurology following.
Right carotid endarterectomy with bovine pericardial patch angioplasty (2016)
Left carotid endarterectomy with patch angioplasty (2015)
- repeat vasc sx evaluation requested - input noted
- repeat carotid Doppler result pending,.
Essential HTN
- continue management with valsartan/nifedipine
- continue imdur
- continue metoprolol
Persistent AFIB - rate controlled currently
Sick sinus syndrome status post pacemaker
- continue pradaxa and Tikosyn
- metoprolol 100 am and 50 hs for rat control
- follows w/Dr Linton as outpatient. Discussed with cardio service for an need of outpatient follow-up as neuro requesting possible evaluation for Watchman device placement.
CAD status post stents
Continue with statin and beta-andrez and isosorbide mononitrate
Hx chronically occluded right ICA
Follows with Dr. Veloz
Hyperlipidemia
Continue statin
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
Follows with neurology as outpatient
Plan to start Sinemet per neurology
Degenerative disc disease
Spinal stenosis
Primary biliary cirrhosis
GERD
Small hiatal hernia
DVT PPX - on pradaxa
Code status - full code
Anticipated Discharge: Today
Subjective/Interval History
-
Date of Service: July 01, 2024
Denies of having any issues
No new problems reported.
Objective Data
-
Labs:
Laboratory Results
07/01/24
06:29
WBC 7.8
Hgb 12.1
Hct 36.9 L
Plt Count 236
Sodium 139
Potassium 4.6
Chloride 103
Carbon Dioxide 26
BUN 20 H
Creatinine 0.7
Glucose 91
Calcium 9.2
Vital Signs:
Vital Signs
Temp Pulse Resp BP Pulse Ox
97.8 F 72 16 111/47 94
07/01/24 11:47 07/01/24 11:47 07/01/24 11:47 07/01/24 11:47 07/01/24 11:47
I&O
06/30/24 07/01/24 07/02/24
06:59 06:59 06:59
Intake Total 300 / 300 840 / 840
Balance 300 / 300 840 / 840
Review of Systems
-
Respiratory: Reports No Symptoms
Cardiac: Reports No Symptoms
Abdomen/GI: Reports No Symptoms
Physical Exam
-
General: Comfortable
HEENT: Negative Oxygen
Respiratory: Clear to Auscultation and Non Labored Respirations
Cardiac: Regular Rhythm and S1/S2
GI: Soft, Nontender and Nondistended
Skin: Warm and Dry
Neuro: Awake, Alert, Oriented, AO x 3 and Nonfocal/Grossly Intact
Psych: Calm and Intact Judgement/Insight
[2024-07-01] MEDS: MEDROL 32 MG PO (20:03)
[2024-07-01] MEDS: ACTIGALL 300 MG PO (20:09)
[2024-07-01] MEDS: TOPROL XL 50 MG PO (20:09)
[2024-07-01] MEDS: LIPITOR 80 MG PO (20:12)
[2024-07-02 03:49] VITALS: BP 145/57
[2024-07-02] MEDS: SYNTHROID 112 MCG PO (06:01)
[2024-07-02] MEDS: MEDROL 32 MG PO (06:01)
[2024-07-02] MEDS: BENADRYL 50 MG PO (07:06)
[2024-07-02] MEDS: TYLENOL 650 MG PO (07:50)
[2024-07-02 08:38] VITALS: BP 166/64
--- NOTE | 2024-07-02 08:52 | W.PN.UPDATE ---
Update Note
Progress Note Update
I reviewed CT scan images. Right carotid is indeed occluded. There is just a string of flow in the proximal internal carotid artery as there was prior. But essentially is fully occluded and therefore I do not think this is embolization from the
stump of thrombus in the occluded (chronically) internal carotid artery. I do not think also that there is a significant left carotid stenosis. The endarterectomy site appears reasonably patent. The slightly elevated velocities on duplex are
likely compensatory secondary to the chronic right-sided occlusion. Therefore likely nothing further for me to do at this point. She can follow-up with us in the office. Follow up official radiology report.
--- NOTE | 2024-07-02 09:02 | CON.MD ---
Consultation - Medical
-
Referring Provider:�Dr. Juan Whitt
Chief Complaint:�Stroke
�
History of Present Illness:�84-year-old left-handed female with PMH (as below) presented to [facility] on 06/29/2024 with outpatient MRI noting 2 small subacute strokes in the frontal/frontoparietal region and she had a fall. She had been
having difficulty with walking for several months and getting outpatient physical therapy. She sees neurology for gait and neuromuscular dysfunction. She denies she fell she was in A-fib but was asymptomatic. She denies any new concerns over the
past few days. Denies any new numbness tingling or weakness. She has right lower quadrant vision loss from a prior stroke. She has some tingling in her right more than left hand in the morning but it goes away when she is up in the morning.
�
Past Medical History:�Atrial fibrillation on Pradaxa, CAD, HTN, carotid artery stenosis, hypothyroidism, CVA x 2 with some right lower quadrant visual loss and some weakness on the left, COPD, GERD, biliary cirrhosis, anemia, sick sinus syndrome
Procedure History:�Bilateral carotid endarterectomy, permanent pacemaker, cardiac catheterization left temporal artery biopsy, left total mastectomy and left axillary sentinel lymph node biopsy, renal stent
Family History:�None pertinent
�
Social History:�
Functional Level Premorbidly:�Modified independent with all activities�using single-point cane in community or furniture surfing at home. Daughter stated laundry in the basement.
Functional Level Currently:�Supervision for transfers, supervision ambulating 40 feet x 2 with single-point cane and then 150 feet x 1 with rolling walker.
�
Tobacco:�Denies�
Alcohol:�Denies�
Drug use:�Denies�
�
Lives with:�Alone
24-hour assistance available:�No
Number of floors:�3
# steps to enter:�5
# steps to second floor: Full flight
Potential First floor set up:�Yes stays on first floor
Driving:�Yes
Occupation:�Retired
�
�
Allergies:�
Allergy/AdvReac Type Severity Reaction Status Date / Time
adhesive Allergy Redness, Verified 06/28/24 18:01
rash
amiodarone Allergy tremors Verified 06/28/24 18:01
diltiazem Allergy Rash Verified 06/28/24 18:01
hydralazine [Hydralazine] Allergy RAMSEY, Verified 06/28/24 18:01
Fatigue,
Dizziness
Iodinated Contrast Media Allergy Rash and Verified 06/28/24 18:01
[Iodinated Contrast Media - Warmth
IV Dye]
iodine [Iodine] Allergy rash with Verified 06/28/24 18:01
ivp dye
omeprazole Allergy Nausea Verified 06/28/24 18:01
spironolactone Allergy kidney Verified 06/28/24 18:01
failure-
Hypercalcemia
�
Review of Systems:�
Constitutional: (x) Normal _
Eye: (x) abNormal _right lower quadrant vision loss since prior stroke
Ear/Nose/Throat: (x) Normal _
Respiratory: (x) Normal _
Cardiovascular: (x) Normal _
Gastrointestinal: (x) Normal _
Genitourinary: (x) Normal _
Musculoskeletal: (x) Normal _
Integumentary: (x) Normal _
Neurologic: (x) abNormal _stroke with more falls recently prior strokes with vision loss and some left-sided weakness
Psychiatric: (x) Normal _
Endocrine: (x) Normal _
Hematologic/Lymphatic: (x) Normal _
Allergic/Immunologic: (x) Normal _
�
Medications:�
Active Current Visit Medication List
Category Date Time Status
Acetaminophen [Tylenol/Feverall] Med 06/29/24 06:48 Active
650 mg RECTAL Q4HPRN PRN
Acetaminophen [Tylenol] Med 06/29/24 06:48 Active
650 mg PO Q4HPRN PRN
Atorvastatin [Lipitor] Med 07/01/24 22:00 Active
80 mg PO HS
Carbidopa/Levodopa [Sinemet 25-100] Med 06/30/24 16:00 Active
0.5 tablet PO TID
Dabigatran Etexilate Mesylate [Pradaxa] Med 06/29/24 08:00 Active
150 mg PO BID
Dofetilide [Tikosyn] Med 06/29/24 08:00 Active
250 mcg PO BID
Flush (0.9% Sodium Chloride) [Flush (Nss)] Med 06/29/24 07:00 Active
See Dose Instructions IV PER PROTOCOL
ISOSORBIDE MONOnitrate ER [Imdur (Extended Release)] Med 06/29/24 08:00 Active
60 mg PO DAILY
Levothyroxine [Synthroid] Med 06/29/24 08:00 Active
112 mcg PO DAILY@0600
Metoprolol Xl [Toprol Xl] Med 06/29/24 08:00 Active
100 mg PO DAILY
Metoprolol Xl [Toprol Xl] Med 06/29/24 22:00 Active
50 mg PO HS
NIFEdipine EXTENDED RELEASE [Procardia Xl (Extended Med 06/29/24 08:00 Active
Release)]
60 mg PO BID
Pantoprazole [Protonix] Med 06/29/24 08:00 Active
20 mg PO BID
Polyethylene Glycol Powder [Miralax] Med 06/30/24 18:00 Active
17 grams PO DAILY
Sertraline HCl [Zoloft] Med 06/29/24 08:00 Active
25 mg PO DAILY
Ursodiol [Actigall] Med 06/29/24 22:00 Active
300 mg PO HS
Ursodiol [Actigall] Med 06/29/24 08:00 Active
600 mg PO DAILY
Valsartan [Diovan] Med 06/29/24 08:00 Active
80 mg PO DAILY
�
Vitals:�
Temp Pulse Resp BP Pulse Ox
98.2 F 72 18 166/64 94
07/02/24 08:38 07/02/24 08:38 07/02/24 08:38 07/02/24 08:38 07/02/24 08:38
Height 4 ft 11.25 in
Actual Weight 58.8 kg
�
Physical Exam:�
General Appearance/Observation: Well-developed, well-nourished female in no apparent distress.�
Pain/Comfort Assessment: Denies�
Mood/Affect: Appropriate�
�
Integumentary/Operative Site:�
�� Pressure Ulcer Evaluation: absent over heels.�:
�
Eyes: Conjunctiva/Lids: normal���� Pupils: pupils equal round and reactive to light and Accommodation�
Ears/Nose/Throat: oral mucosa moist,� throat clear.������������ Lips/Teeth/Gums: normal�
Cardiovascular: Heart: regular, no murmur�
Pulses: dorsalis pedis 2+ bilaterally�
Respiratory: Respiratory Effort/Chest Expansion: normal������� Auscultation: Clear to auscultation bilaterally�
Gastrointestinal: abdomen not tender, no distension, normal abdominal bowel sounds
Genitourinary: No Mcallister�
Rectal Exam: Deferred�
Extremities:�Edema: None�Cyanosis: None�Trophic�changes: None
�
Neurology Exam:
Orientation: Alert, Oriented to self, Time, Place�
Memory: Intact for recent medical concerns
Repetition: Intact
Comprehension: Intact
Two step command: Intact
Cranial Nerves:
�� CNII:�Pupillary light reflex: Intact����Visual Field: Impaired right lower quadrant
�� CN III, IV, : Extraocular muscles: Intact�
�� CN V:�Facial Sensation�at�Forehead: Intact,�Maxilla: Intact,�Mandible: Intact
�� CN VII:�Facial movement: Symmetric
�� CN VIII:�Hearing: Normal
�� CN IX/X:�Speech & swallow: Normal,�Position of Uvula: Midline
�� CN XI:�Shoulder shrug: Symmetric
�� CN XII:�Tongue protrusion: Midline
Sensory:
�� Light touch: Intact in bilateral upper and lower extremities
Positive Tinel's over the ulnar nerve at the elbow worse right versus left
Positive Tinel's over the right median nerve at the wrist
�
Reflexes:
�� Biceps: 2+ bilaterally
�� Brachioradialis: 2+ bilaterally
�� Triceps: 2+ bilaterally
�� Patellar: 2+ bilaterally
�� Achilles: 0 bilaterally
�� Babinski: Down going bilaterally
�� Clonus: None
�� Irwin: Negative bilaterally�
Cerebellar: Dysmetria/Ataxia: None�
Musculoskeletal: Motor: (Manual muscle scale 0-5)�
Muscle SA EF WE EE FF FA HF KE DF EHL PF
Right� 5 5 5 5 5 4 5 5 5 5
Left 5 5 5 5 5 4 5 5 5 5
�
Tone: Normal in all extremities�
Range of Motion: Passively within normal limits in all extremities�
�
Lab Results
Laboratory Data
07/01/24 06:29
07/01/24 06:29
PT 19.7 Sec (11.4-14.6) H 06/28/24 18:14
INR 1.64 06/28/24 18:14
APTT 52.6 Sec (23.4-35.0) H 06/28/24 18:14
Total Bilirubin 0.6 mg/dl (0.2-1.3) 06/28/24 18:14
AST 29 U/L (14-36) 06/28/24 18:14
ALT 14 U/L (0-35) 06/28/24 18:14
Alkaline Phosphatase 114 U/L (38-126) 06/28/24 18:14
Total Protein 8.5 g/dl (6.3-8.2) H 06/28/24 18:14
Albumin 4.8 g/dl (3.5-5.0) 06/28/24 18:14
�
Diagnostic Results:�as per HPI�
�
Assessment
84-year-old left-handed female with PMH (Atrial fibrillation on Pradaxa, CAD, HTN, carotid artery stenosis, hypothyroidism, CVA x 2 with some right lower quadrant visual loss and some weakness on the left, COPD, GERD, biliary cirrhosis, anemia, sick
sinus syndrome) presented to [facility] on 06/29/2024 with outpatient MRI noting 2 small subacute strokes in the frontal/frontoparietal region and she had a fall. She had been having difficulty with walking for several months and getting
outpatient physical therapy. She sees neurology for gait and neuromuscular dysfunction. She denies she fell she was in A-fib but was asymptomatic. She denies any new concerns over the past few days. Denies any new numbness tingling or weakness.
She has right lower quadrant vision loss from a prior stroke. She has some tingling in her right more than left hand in the morning but it goes away when she is up in the morning.
�
Plan�
PM&R�PT/OT to increase independence with ADLs, improve balance, coordination, endurance, strength, mobility, community reintegration, decreased burden of care on others and family education.�
�
CVA: Secondary prophylaxis currently with Pradaxa, statin, and blood pressure control (SBP less than 180 and diastolic less than 100 to participate with therapy for ischemic stroke). Continue to monitor neurologic status.�
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
-Suggest EMG with Dr. Funk as an outpatient to further evaluate etiology and severity of her tingling
-Would suggest bilateral elbow pads to help with ulnar concerns on exam
-Would benefit from a right wrist splint to help prevent carpal tunnel symptoms.
-Explained to patient that accurate diagnosis and severity is important for prevention of permanent nerve damage in these areas. She is willing to get further evaluation as an outpatient.
�
HTN: continue medications, monitor closely�
Coronary artery disease: Pradaxa, statin, beta-andrez�
Atrial fibrillation:�Pradaxa anticoagulation and rate control with metoprolol and dofetilide.�������������������������������������������
COPD: Not on medications
Psych: Psychology consult.� Monitor mood, adjust sertraline as needed.�
Pain: acetaminophen as needed.�
Bowel: Colace and Senna, PRN bisacodyl.�
Bladder: Time void, PVRs, PRN straight cath.�
GERD: Pantoprazole�
DVT Prophylaxis: Mechanical on Pradaxa.�
Pulmonary: Incentive spirometry�
Safety: Continue to reinforce assistance with all transfers.�
Code Status:� Full code
Dispo�(date/plan/equipment needs): Home with family care.� Social history reviewed.�
Functional and Medical Goals:�Modified Independent with ADL�s, ambulation, transfers�
Discharge Destination:�Home with home health. She is walking 150 feet with rolling walker with supervision. She would like to go home with home care and then go back to [facility] outpatient for further treatment.
�
Summary of recommendations:
-�Discharge Destination:��Home with home health and then go back to [facility] outpatient for further treatment.
CVA: Secondary prophylaxis currently with Pradaxa, statin, and blood pressure control (SBP less than 180 and diastolic less than 100 to participate with therapy for ischemic stroke). Continue to monitor neurologic status.�
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
-Suggest EMG with Dr. Funk as an outpatient to further evaluate etiology and severity of her tingling
-Would suggest bilateral elbow pads to help with ulnar concerns on exam
-Would benefit from a right wrist splint to help prevent carpal tunnel symptoms.
-Explained to patient that accurate diagnosis and severity is important for prevention of permanent nerve damage in these areas. She is willing to get further evaluation as an outpatient.
�
Thank you for allowing me to care for your patient. Please contact me with any questions or concerns.
[2024-07-02] MEDS: PROCARDIA XL (EXTENDED RELEASE) 60 MG PO (09:37)
[2024-07-02] MEDS: SINEMET 25-100 0.5 TABLET PO (09:37)
[2024-07-02] MEDS: DIOVAN 80 MG PO (09:38)
[2024-07-02] MEDS: TIKOSYN 250 MCG PO (09:38)
[2024-07-02] MEDS: IMDUR (EXTENDED RELEASE) 60 MG PO (09:38)
[2024-07-02] MEDS: TOPROL XL 100 MG PO (09:38)
[2024-07-02] MEDS: ZOLOFT 25 MG PO (09:38)
[2024-07-02] MEDS: PRADAXA 150 MG PO (09:38)
[2024-07-02] MEDS: PROTONIX 20 MG PO (09:38)
[2024-07-02] MEDS: ACTIGALL 600 MG PO (09:38)
[2024-07-02] MEDS: MIRALAX PO (09:39)
[2024-07-02 11:26] VITALS: BP 113/54
[2024-07-02 12:05] VITALS: BP 184/70; PULSE 74
--- NOTE | 2024-07-02 14:35 | W.PN.HOSP.TC ---
Today's Communication/Plan
-
d/c home
Assessment / Plan
Assessment / Plan
CTA h&n
Re-demonstration of complete occlusion of the majority of the right internal carotid artery extending to the intracranial bifurcation. There is near complete occlusion of the right internal carotid artery at its origin with subsequent complete
occlusion beginning approximately 2 cm beyond the origin.
Mild mixed soft and calcific plaque within the left carotid bulb resulting in less than 50% stenosis of the proximal left internal carotid artery.

Subacute stroke involving right MCA distribution
- Possibly a silent cerebral infarction related to AF vs stroke related to other factors. Currently NIHSS = 0. Fall without evidence of intracranial hemorrhage.
- cholesterol lowering diet
- will continue dabigatran for now
- Neuro recommended against repeat MR or CT angiogram
- question of antiplatelet therapy pending neuro eval
- continue statin. a1c 5.9
- PT/OT recommended home-based physical therapy
- Neurology recommended against adding aspirin to Pradaxa due to increased bleed risk. Recommended to increase atorvastatin to 80 mg every afternoon although patient have problem with statin use myopathy
Right carotid endarterectomy with bovine pericardial patch angioplasty (2017)
Left carotid endarterectomy with patch angioplasty (2016)
-Carotid Doppler reading showing increased velocity through left carotid and a follow-up CTA head and neck was done which ruled out any structural stenosis
-Patient right carotid is occluded at this time and majority of blood flow is through dominant left carotid artery
-No intervention recommended at this point by vascular surgery
Essential HTN
- continue management with valsartan/nifedipine
- continue imdur
- continue metoprolol
Persistent AFIB - rate controlled currently
Sick sinus syndrome status post pacemaker
- continue Pradaxa and Tikosyn
- metoprolol 100 am and 50 hs for rat control
- follows w/Dr Metcalf as outpatient. Discussed with cardio service for an need of outpatient follow-up as neuro requesting possible evaluation for Watchman device placement.
CAD status post stents
Continue with statin and beta-andrez and isosorbide mononitrate
Hx chronically occluded right ICA
Follows with Dr. Veloz
Hyperlipidemia
Continue statin
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
Follows with neurology as outpatient
Plan to start Sinemet per neurology
Degenerative disc disease
Spinal stenosis
Primary biliary cirrhosis
GERD
Small hiatal hernia
DVT PPX - on pradaxa
Code status - full code
More than 30 minutes spent in discharge including
Final examination of the patient
Summarizing hospital stay
Instructions for continuing care to all relevant caregivers
Preparation of discharge records, prescriptions, and referral forms
Total time spent (in minutes): 39 mins
Anticipated Discharge: Today
Subjective/Interval History
-
Date of Service: July 02, 2024
resting comfortably in bed
no complains overnight
Objective Data
-
Vital Signs:
Vital Signs
Temp Pulse Resp BP Pulse Ox
99.7 F 71 18 113/54 94
07/02/24 11:26 07/02/24 11:26 07/02/24 11:26 07/02/24 11:26 07/02/24 11:26
I&O
07/01/24 07/02/24 07/03/24
06:59 06:59 06:59
Intake Total 840 / 840 720 / 720
Balance 840 / 840 720 / 720
Review of Systems
-
Respiratory: Reports No Symptoms
Cardiac: Reports No Symptoms
Abdomen/GI: Reports No Symptoms
Physical Exam
-
General: Comfortable
HEENT: Negative Oxygen
Respiratory: Clear to Auscultation and Non Labored Respirations
Cardiac: Regular Rhythm and S1/S2
GI: Soft, Nontender and Nondistended
Skin: Warm and Dry
Neuro: Awake, Alert, Oriented, AO x 3 and Nonfocal/Grossly Intact
Psych: Calm and Intact Judgement/Insight
--- NOTE | 2024-07-03 17:40 | W.DCSUMMARY ---
Discharge Summary
Discharge Data
Date of Admission: 07/01/24
Date of Discharge: 07/02/24
-
Pending Results: No
Hospital Course
Discharging Physician : Dr Juan Whitt
Disposition : To home
Primary care physician : Dr Florecita Valentine
Principal Discharge diagnosis :
Subacute stroke involving right middle cerebral artery distribution
Chronic Discharge diagnosis :
History of right carotid endarterectomy with bovine pericardial patch angioplasty
History of left carotid endarterectomy with patch angioplasty
Essential hypertension
Persistent atrial fibrillation
Sick sinus syndrome post pacemaker placement
Coronary disease with history of stents
hyperlipidemia
Hospital Course :
Patient is 84-year-old female with mentioned past medical history came to ER after having a fall at home. Patient had some palpitation and felt to having A-fib. MRI was done in outpatient basis which showed frontal frontoparietal subacute stroke.
Neurology was involved in care and patient recommended against any further angiogram as patient has known to having right carotid arterial stenosis and left carotid artery blockages. Neurology also recommended against adding aspirin to Pradaxa as
with increased bleeding risk. Atorvastatin dose agreement to 80 mg was recommended although patient declined as has problem of statin induced myopathy/pain issue. vascular surgery was involved in care and patient underwent bilateral carotid
Doppler, left-sided carotid flow velocities were increased and there was concern of new left-sided stenosis. A follow-up CTA head and neck was done which showed known almost complete occlusion of right carotid and compensatory increase in left
carotid flow explaining ultrasound finding. Vascular surgery thus recommended against any further intervention. Patient was evaluated by physical therapy and was deemed appropriate for home level care.
Important imaging findings :
None
Procedure findings :
None
Discharge Plan
-
Patient Disposition: Home with Home Care
Discharge Diagnosis/Procedures: Subacute R MCA stroke
Condition: Fair
Diet: Low Cholesterol and 2 Gram Sodium
Activity: As tolerated
Driving Restrictions: No driving
Bathing Restrictions: OK to Shower
Referrals:
Florecita Valentine DO [Family Provider] - in one week
Ivan Tang MD [Active] - in three to four weeks
Anibal Veloz MD [Active] - 12/31/24 8:30 am
Prescriptions:
New
carbidopa-levodopa [Sinemet] 25-100 mg tablet
1 tab PO TID Qty: 90 1RF
Rx Instructions:
Take half tablet three times a day for next 2 days THEN
Take 1 tablet three times a day for maintenance
Continued
nifedipine 60 MG tablet extended release
60 mg PO DAILY
ursodiol 300 MG capsule
600 mg PO DAILY
ursodiol 300 MG capsule
300 mg PO HS
dabigatran etexilate [Pradaxa] 150 MG capsule
150 mg PO BID Qty: 60 1RF
isosorbide mononitrate 60 mg tablet extended release 24 hr
60 mg PO DAILY
metoprolol succinate 100 mg Tablet Extended Release 24 Hr
100 mg PO DAILY Qty: 30 0RF
levothyroxine 112 mcg Tablet
112 mcg PO DAILY
cholecalciferol (vitamin D3) [Vitamin D3] 50 mcg (2,000 unit) Capsule
50 mcg PO DAILY
propranolol 20 mg Tablet
20 mg PO Q4HPRN PRN (Reason: a fib )
atorvastatin 40 mg Tablet
40 mg PO HS
calcium carbonate 500 mg calcium (1,250 mg) Tablet
500 mg PO DAILY
pantoprazole [Protonix] 20 mg Tablet,Delayed Release (Dr/Ec)
20 mg PO BID
dofetilide 250 mcg capsule
250 mcg PO BID
metoprolol succinate 50 mg Tablet Extended Release 24 Hr
50 mg PO HS
sertraline [Zoloft] 25 mg Tablet
25 mg PO DAILY
valsartan 80 mg Tablet
80 mg PO DAILY
furosemide 20 mg Tablet
20 mg PO DAILYPRN PRN (Reason: swelling)
acetaminophen 325 mg Tablet
325 mg PO DAILYPRN PRN (Reason: mild pain)
guar gum Packet
1 tbsp PO DAILY
Discharge Orders:
Discharge Patient (As Directed); Ordered 07/02/24
Ordered By: Juan Whitt
Discharge Date and Time
Discharge Date/Time: 07/02/24 13:02
Print Language: JAPANESE
== END 2024-07-02 13:02 | disposition home health service (06) | DRG 65 ==
LOC: 4 EAST ACU 11:12
PROVIDERS: Hospitalist; Physician Assistant; ADMITTING PHYSICIAN Internal Medicine; ATTENDING PHYSICIAN Hospitalist; CONSULT PHYSICIAN Physical Medicine & Rehabilitation; CONSULT PHYSICIAN Psychiatry & Neurology Neurology; EMERGENCY PHYSICIAN Emergency Medicine; FAMILY PHYSICIAN Family Medicine; OTHER PHYSICIAN Surgery Vascular Surgery
DX: I63.411 Cerebral infarction due to embolism of right middle cerebral artery (principal); I48.19 Other persistent atrial fibrillation; W01.0XXA Fall on same level from slipping, tripping and stumbling without subsequent striking against object, initial encounter; Z79.01 Long term (current) use of anticoagulants; Z95.0 Presence of cardiac pacemaker; I25.10 Atherosclerotic heart disease of native coronary artery without angina pectoris; I12.9 Hypertensive chronic kidney disease with stage 1 through stage 4 chronic kidney disease, or unspecified chronic kidney disease; N18.9 Chronic kidney disease, unspecified; E03.9 Hypothyroidism, unspecified; Z86.73 Personal history of transient ischemic attack (TIA), and cerebral infarction without residual deficits; Z87.891 Personal history of nicotine dependence; Z91.041 Radiographic dye allergy status; Z79.02 Long term (current) use of antithrombotics/antiplatelets; I73.9 Peripheral vascular disease, unspecified; I65.21 Occlusion and stenosis of right carotid artery; I49.5 Sick sinus syndrome; M50.30 Other cervical disc degeneration, unspecified cervical region; M48.00 Spinal stenosis, site unspecified; K74.3 Primary biliary cirrhosis; K21.9 Gastro-esophageal reflux disease without esophagitis; K44.9 Diaphragmatic hernia without obstruction or gangrene; Z85.3 Personal history of malignant neoplasm of breast; Z90.13 Acquired absence of bilateral breasts and nipples; Z82.49 Family history of ischemic heart disease and other diseases of the circulatory system; Z80.1 Family history of malignant neoplasm of trachea, bronchus and lung; G21.4 Vascular parkinsonism; E78.00 Pure hypercholesterolemia, unspecified; J44.9 Chronic obstructive pulmonary disease, unspecified; D64.9 Anemia, unspecified; Z88.8 Allergy status to other drugs, medicaments and biological substances; E83.52 Hypercalcemia; Z79.899 Other long term (current) drug therapy; Z79.890 Hormone replacement therapy; G56.01 Carpal tunnel syndrome, right upper limb; G56.22 Lesion of ulnar nerve, left upper limb; H54.7 Unspecified visual loss; R29.700 NIHSS score 0; Z95.5 Presence of coronary angioplasty implant and graft
CPT/HCPCS: 70450; 70496; 70498; 80048; 80053; 80061; 82550; 83036; 85025; 85610; 85652; 85730; 93880; 97116; 97129; 97530; 97535; 99285; 99406; Q9967

== ENCOUNTER 2024-10-24 11:06 | Outpatient (RCR) | payer OTHER, SELFPAY | END 2024-10-24 23:59 | disposition home or self-care (01) | LOC: RPT 11:06 | PROVIDERS: ATTENDING PHYSICIAN Nurse Practitioner Family; FAMILY PHYSICIAN Family Medicine | DX: G20.A1 Parkinson's disease without dyskinesia, without mention of fluctuations (principal); R26.89 Other abnormalities of gait and mobility; Z73.6 Limitation of activities due to disability | CPT/HCPCS: 97110; 97162; 97530 ==

== ENCOUNTER 2024-11-04 15:17 | Outpatient (RCR) | payer OTHER, SELFPAY | END 2024-11-13 11:46 | disposition home or self-care (01) | LOC: ROT 15:17 | PROVIDERS: ATTENDING PHYSICIAN Nurse Practitioner Family; FAMILY PHYSICIAN Family Medicine | DX: G20.A1 Parkinson's disease without dyskinesia, without mention of fluctuations (principal); R26.89 Other abnormalities of gait and mobility; Z73.6 Limitation of activities due to disability | CPT/HCPCS: 97110; 97112; 97167; 97530; 97535 ==

== ENCOUNTER 2024-11-08 23:35 | Observation (INO) | payer OTHER, SELFPAY ==
[2024-11-08 21:12] VITALS: BP 152/92
[2024-11-08 21:14] VITALS: BMI 25.6
--- NOTE | 2024-11-08 22:50 | ED.MUSCINJ ---
HPI-Injury
General
Chief Complaint: Musculo-Skeletal Complaint
Source: patient
Exam Limitations: none
Time Seen by Provider: 11/08/24 21:55
Nursing documentation reviewed up to this point in time: agreed with
History of Present Illness-Injury
Is this injury a work related problem?: No
Is pt an associate of [facility]/[place]?: No
Initial Injury comments:
Patient states she rolled her ankle earlier today. Initially she was able to walk but states she was sitting at the bank for about an hour and after that the pain became intense. Unable to bear weight now. Brought to ED by family for eval.
Past History
Past History
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
ED Past Surgical History: Cardiac (Pacemaker, PTCI) and Other (Mastectomy L, renal artery PTCI)
Social History
Tobacco: Former smoker
Alcohol: Occasional
Drug: None
Personal: Other
Living: alone
Employment: Retired
Family History
Family History: Other
Review of Systems
Review of Systems
Allergies reviewed?: Yes
All Other Systems: ROS reviewed and negative except as documented in HPI and ROS
Constitutional: Reports no symptoms
EENT: Reports no symptoms
Respiratory: Reports no symptoms
Cardiac: Reports no symptoms
ABD/GI: Reports no symptoms
: Reports no symptoms
Musculoskeletal: Reports joint pain (Pain to right lat ankle)
Skin: Reports no symptoms
Neurological: Reports no symptoms
Psychiatric: Reports no symptoms
Musculoskeletal Injury Exam
Musculoskeletal Injury Exam
Right Lateral Ankle:
Pain with Movement?: Moderate
Tender to palpation?: Moderate
Soft tissue swelling?: Mild
External deformity and angulation?: None
Joint effusion?: None
Contusion?: None
Hematoma-local bleeding into tissue?: Mild
Strain- Sprain- Tear (Connective tissue injury)?: Moderate
Crepitus with movement?: No
Joint instability?: No
Malalignment/deformity?: No
Range of motion: Limited
Distal skin color and temperature: normal-warm & good color
Capillary Refill: normal
Normal distal neurovascular exam?: Yes
Peripheral Pulses: posterior tibial (right): 3+ and dorsalis pedis (right): 3+
Phy Exam
General Physical Exam
General Presentation: well appearing and no apparent distress
General age: appears stated age
General Skin: warm and dry
General Habitus: normal
General Mental: alert
Musculoskeletal Exam
Musculoskeletal Exam: neuro vasc intact and other (Achilles intact. No tenderness base of 5th, proximal tib/fib)
Skin Exam
Skin Exam: normal color, warm/dry and no rash
Psychiatric Exam
Psychiatric Exam: normal mood/affect
Injury Course
Orders/Labs/Results
Orders:
Orders
11/08/24 21:18
CR Ankle - Right Min 3 Views * Urgent
Comment:
Reason For Exam: rolled ankle
11/08/24 22:57
Acetaminophen [Tylenol] 1,000 mg PO NOW STA
*Radiology
Radiology exam reviewed: radiology read reviewed
*Pulse Oximetry
Patient hypoxic: no
*Critical Care Note
Total Time (30-74mins, 75-104mins- exclusive of procedures): Not Applicable
Update Note
Update Note:
Patient unable to bear weight on RLE due to ankle pain. Unable to tolerate orthoboot. She lives alone and does not feel that she can go home. WIll admit to hospitalist service, PT eval. Pain medication offered. Will only take tylenol for pain.
ED Attending Note
-
Portions of this chart may have been created with voice recognition software.� Occasional wrong word or��sound alike� substitutions may have occurred due to the inherent limitations of voice recognition software.
Discharge Plan
Departure
Patient Disposition: Admit
Date of Disposition: 11/08/24
Time of Disposition: 22:56
Presentation/result/management discussed w/ accepting MD/DO: Hospitalist
Patient with high blood pressure during this ER visit?: No
Condition: Fair
Covid-19: Not Applicable
Discharge Problem:
Ambulatory dysfunction, Ankle sprain
Prescriptions:
No Action
nifedipine 60 MG tablet extended release
60 mg PO DAILY
ursodiol 300 MG capsule
600 mg PO DAILY
ursodiol 300 MG capsule
300 mg PO HS
dabigatran etexilate [Pradaxa] 150 MG capsule
150 mg PO BID Qty: 60 1RF
isosorbide mononitrate 60 mg tablet extended release 24 hr
60 mg PO DAILY
metoprolol succinate 100 mg Tablet Extended Release 24 Hr
100 mg PO DAILY Qty: 30 0RF
levothyroxine 112 mcg Tablet
112 mcg PO DAILY
cholecalciferol (vitamin D3) [Vitamin D3] 50 mcg (2,000 unit) Capsule
50 mcg PO DAILY
propranolol 20 mg Tablet
20 mg PO Q4HPRN PRN (Reason: a fib )
atorvastatin 40 mg Tablet
40 mg PO HS
calcium carbonate 500 mg calcium (1,250 mg) Tablet
500 mg PO DAILY
pantoprazole [Protonix] 20 mg Tablet,Delayed Release (Dr/Ec)
20 mg PO BID
dofetilide 250 mcg capsule
250 mcg PO BID
metoprolol succinate 50 mg Tablet Extended Release 24 Hr
50 mg PO HS
sertraline [Zoloft] 25 mg Tablet
25 mg PO DAILY
valsartan 80 mg Tablet
80 mg PO DAILY
furosemide 20 mg Tablet
20 mg PO DAILYPRN PRN (Reason: swelling)
acetaminophen 325 mg Tablet
325 mg PO DAILYPRN PRN (Reason: mild pain)
guar gum Packet
1 tbsp PO DAILY
carbidopa-levodopa [Sinemet] 25-100 mg tablet
1 tab PO TID Qty: 90 1RF
Rx Instructions:
Take half tablet three times a day for next 2 days THEN
Take 1 tablet three times a day for maintenance
Referrals:
Florecita Valentine DO [Family Provider, Family Practice]
Interventions
Interventions:
*Risk Screen - Suicide Last Done: 11/08/24 21:15
*General Assessment Last Done: 11/08/24 21:14
*Neglect/Abuse Screening Last Done: 11/08/24 21:15
*ED- Fall Risk Assessment Last Done: 11/08/24 21:15
*ED COVID-19 Vaccine History Last Done: 11/08/24 21:15
ED-Musculoskeletal Assessment Last Done: 11/08/24 21:15
Discharge Date and Time
Print Language: GUINEAN
[2024-11-08] MEDS: TYLENOL 1000 MG PO (23:14)
--- NOTE | 2024-11-08 23:15 | HPS.HSE ---
Family Physician
-
Family Physician: Florecita Valentine
Chief Complaint
-
ankle pain
History of Present Illness
84-year-old female past medical history of persistent atrial fibrillation on Pradaxa, sick sinus syndrome status post pacemaker, CAD status post stents, PAD, hypertension, carotid artery stenosis status post bilateral endarterectomy, Parkinson's
disease, hypothyroidism, breast cancer status post left mastectomy, CVA, hyperlipidemia, spinal stenosis, right eye retinal hemorrhage, presenting after she rolled her right ankle earlier today. She was initially able to walk afterwards but was
sitting at the bank for an hour and after that the pain became intense. She is unable to bear weight now.
She has been having spasms in her right lower extremity worse at nighttime for the past few weeks which she thinks is secondary to her Parkinson's disease.
Denies smoking. Drinks alcohol occasionally.
Medical History
Past Medical History
Past Medical History: Reports Other (persistent atrial fibrillation on Pradaxa, sick sinus syndrome status post pacemaker, CAD status post stents, PAD, hypertension, carotid artery stenosis status post bilateral endarterectomy, Parkinson's disease,
hypothyroidism, breast cancer status post left mastectomy, CVA, hyperlipidemia, spinal s)
Past Surgical History: Reports None
Social History
Tobacco: Non-smoker
Alcohol: Occasional
Drug: None
Family History
Family History: Not pertinent
Allergies / Home Medications
Allergies reflects when Allergies were last updated in [facility].
Home Medications with original date entered in [facility]
Allergy/Medication List:
Allergies
Allergy/AdvReac Type Severity Reaction Status Date / Time
adhesive Allergy Redness, Verified 06/28/24 18:01
rash
amiodarone Allergy tremors Verified 06/28/24 18:01
diltiazem Allergy Rash Verified 06/28/24 18:01
hydralazine (Hydralazine) Allergy RAMSEY, Verified 06/28/24 18:01
Fatigue,
Dizziness
Iodinated Contrast Media Allergy Rash and Verified 06/28/24 18:01
(Iodinated Contrast Media - Warmth
IV Dye)
iodine (Iodine) Allergy rash with Verified 06/28/24 18:01
ivp dye
omeprazole Allergy Nausea Verified 06/28/24 18:01
spironolactone Allergy kidney Verified 06/28/24 18:01
failure-
Hypercalcemia
Home Medications
nifedipine 60 mg tablet,extended release 60 mg PO DAILY Blood pressure 06/06/16
ursodiol 300 mg capsule 300 mg PO HS Urinary issue 01/23/17
ursodiol 300 mg capsule 600 mg PO DAILY Urinary issue 01/23/17
dabigatran etexilate 150 mg capsule (Pradaxa) 150 mg PO BID #60 caps 08/04/21
isosorbide mononitrate 60 mg tablet,extended release 24 hr 60 mg PO DAILY CHEST PAIN 05/18/22
metoprolol succinate 100 mg tablet,extended release 24 hr 100 mg PO DAILY #30 tabs 05/28/22
cholecalciferol (vitamin D3) 50 mcg (2,000 unit) capsule (Vitamin D3) 50 mcg PO DAILY Supplement 06/21/23
levothyroxine 112 mcg tablet 112 mcg PO DAILY Thyroid 06/21/23
propranolol 20 mg tablet 20 mg PO Q4HPRN PRN a fib 06/23/23
atorvastatin 40 mg tablet 40 mg PO HS High Cholesterol 06/29/23
calcium carbonate 500 mg PO DAILY Supplement 12/07/23
pantoprazole 20 mg tablet,delayed release (Protonix) 20 mg PO BID Gastrointestinal Issue 02/09/24
dofetilide 250 mcg capsule 250 mcg PO BID Arrhythmia 02/16/24
acetaminophen 325 mg tablet 325 mg PO DAILYPRN PRN mild pain 06/29/24
furosemide 20 mg tablet 20 mg PO DAILYPRN PRN swelling 06/29/24
guar gum 1 tbsp PO DAILY Constipation 06/29/24
metoprolol succinate 50 mg tablet,extended release 24 hr 50 mg PO HS Blood Pressure 06/29/24
sertraline 25 mg tablet (Zoloft) 25 mg PO DAILY Depression 06/29/24
valsartan 80 mg tablet 80 mg PO DAILY Blood Pressure 06/29/24
carbidopa 25 mg-levodopa 100 mg tablet (Sinemet) 1 tab PO TID #90 tabs 07/02/24
Review of Systems
-
History Source: Patient
A 12 point ROS was completed and negative except as noted: Yes
Constitutional: Reports No Symptoms
EENT: Reports No Symptoms
Respiratory: Reports No Symptoms
Cardiac: Reports No Symptoms
Abdomen/GI: Reports No Symptoms
: Reports No Symptoms
Musculoskeletal: Reports See HPI
Skin: Reports No Symptoms
Neurological: Reports No Symptoms
Endocrine: Reports No Symptoms
Hematologic/Lymphatic: Reports No Symptoms
Psych: Reports No Symptoms
Physical Exam
Vital Signs
Vital Signs
Temp Pulse Resp BP Pulse Ox
97.9 F 75 18 152/92 95
11/08/24 21:12 11/08/24 21:12 11/08/24 21:12 11/08/24 21:12 11/08/24 21:12
Physical Exam
General: Well Developed, Well Nourished and No Apparent Distress
HEENT: NormoCephalic, Moist mucous membranes and Atraumatic
Respiratory: Clear
Cardiac: S1/S2 and Regular Rhythm; No Murmur or Rub
GI: Soft, Non Tender, Non Distended and Normal Bowel Sounds; No Organomegaly
Rectal: Deferred by Provider
Musculoskeletal: No Clubbing, No Cyanosis and No Edema
Skin: No Rash
Neuro: Nonfocal/grossly intact
Data Reviewed
-
Lab Data: Labs Reviewed by me
Old Records: Reviewed
Impression/Plan
-
IMPRESSION:
PLAN:
# Right ankle sprain
- Ankle x-ray shows no acute abnormality
-Boot placed
-Tylenol
- PT/OT
# Right lower extremity muscle spasms likely secondary to Parkinson's versus restless leg syndrome
-Patient has arterial ultrasound to evaluate for PAD scheduled as outpatient
- Outpatient follow-up with neurology
Parkinson's disease
- Continue carbidopa-levodopa
Persistent atrial fibrillation
- Continue Pradaxa
- Continue dofetilide
Sick sinus syndrome status post pacemaker
History of PAD
CAD status post stents
- Continue isosorbide mononitrate
- Continue metoprolol
Essential hypertension
- Continue nifedipine, valsartan
Carotid artery stenosis status post bilateral endarterectomy
Hypothyroidism
- Continue levothyroxine
Breast cancer status post left mastectomy
History of CVA
Hyperlipidemia
- Continue statin
Spinal stenosis
History of right eye retinal hemorrhage
GERD
-Continue Protonix
Anxiety/depression
- Continue sertraline
Full code
DVT prophylaxis�heparin
Regular diet
[2024-11-09] VITALS (8 sets, daily range): BP systolic 124–198; BP diastolic 55–84; PULSE 69; O2SAT 93; BMI 25.0
--- NOTE | 2024-11-09 00:43 | PTCARENOTE ---
Addendum entered by Mariela Bonilla RN 11/09/24 01:42:
Patient didn't take her Pradaxa 150mg/ dofetilide 250mcg / metoprolol 50mg HS . Home meds are not ordered. Patient is asking for meds for tonight. JANET Ruvalcaba made aware. See MAR for new orders
Original Note:
Placed patient on tele
[2024-11-09] MEDS: PROTONIX 20 MG PO ×3 (01:21→20:58)
[2024-11-09] MEDS: TOPROL XL 50 MG PO ×2 (01:22→20:58)
[2024-11-09] MEDS: PRADAXA 150 MG PO ×3 (01:22→20:57)
[2024-11-09] MEDS: TIKOSYN 250 MCG PO ×3 (01:32→20:58)
[2024-11-09] MEDS: TYLENOL 650 MG PO ×3 (03:48→13:59)
[2024-11-09] MEDS: SYNTHROID 112 MCG PO (05:22)
[2024-11-09 07:25] LABS: Hematocrit 32.7 % (37.0-47.0); Hemoglobin 10.7 g/dL (12.0-16.0); Mean Corp Hgb Conc. 32.7 g/dL (33.0-37.0); Mean Corpuscular Hgb 30.1 pg (27.0-31.0); Mean Corpuscular Volume 92.1 fL (81.0-99.0); Mean Platelet Volume 10.6 fL (7.4-10.4); Platelet Count 198 10^3/uL (130-400); Red Blood Cell Count 3.55 10^6/uL (4.20-5.40); Red Cell Dist. Width 13.5 % (11.5-14.5); White Blood Cell Count 8.2 10^3/uL (4.8-10.8)
[2024-11-09 07:44] LABS: ALT (SGPT) < 10 U/L (0-35); AST (SGOT) 26 U/L (14-36); Alkaline Phosphatase 107 U/L (38-126); Blood Urea Nitrogen 17 mg/dl (7-17); Calcium 9.3 mg/dl (8.4-10.2); Carbon Dioxide 25 mmol/L (22-30); Chloride 104 mmol/L (98-107); Estimated Creatinine Clearance 43 ml/min; Glucose 88 mg/dl (70-99); Potassium 4.4 mmol/L (3.5-5.1); Sodium 136 mmol/L (135-145); Total Bilirubin 0.6 mg/dl (0.2-1.3); eGFR > 60.00
[2024-11-09] MEDS: DIOVAN 80 MG PO (08:33)
[2024-11-09] MEDS: TOPROL XL 100 MG PO (08:33)
[2024-11-09] MEDS: SINEMET 25-100 1.5 TABLET PO ×4 (08:34→21:01)
[2024-11-09] MEDS: IMDUR (EXTENDED RELEASE) 60 MG PO (08:35)
[2024-11-09] MEDS: ZOLOFT 25 MG PO (08:35)
[2024-11-09] MEDS: OSCAL CAL 500 500 MG PO (08:35)
[2024-11-09] MEDS: VITAMIN D3 (cholecalciferol) 50 MCG PO (08:35)
--- NOTE | 2024-11-09 11:45 | PTCARENOTE ---
Blood pressure elevated, pt asymptomatic. made aware.
[2024-11-09 12:52] LABS: Absolute Neutrophils -Man Diff 4.3 10^3/uL (1.4-6.5); Band Neutrophils 0 % (0-3); Eosinophils 2 % (0-6); Lymphocytes 35 % (20-51); Monocytes 10 % (2-9); Normal RBC Morphology Yes; Platelets Checked Yes; Segmented Neutrophils 53 % (42-75); Total Cells Counted 100
--- NOTE | 2024-11-09 14:59 | W.PN.HOSP.TC ---
Today's Communication/Plan
-
Continue with the boot and ambulate
Follow-up PT OT recommendation
DC plan
Assessment / Plan
Assessment / Plan
# Right ankle sprain
- Ankle x-ray shows no acute abnormality
-Boot placed
-Tylenol
- PT/OT
# Right lower extremity muscle spasms likely secondary to Parkinson's versus restless leg syndrome
-Patient has arterial ultrasound to evaluate for PAD scheduled as outpatient
- Outpatient follow-up with neurology
Parkinson's disease
- Continue carbidopa-levodopa
Persistent atrial fibrillation
- Continue Pradaxa
- Continue dofetilide
Sick sinus syndrome status post pacemaker
History of PAD
CAD status post stents
- Continue isosorbide mononitrate
- Continue metoprolol
Essential hypertension
- Continue nifedipine, valsartan
Carotid artery stenosis status post bilateral endarterectomy
Hypothyroidism
- Continue levothyroxine
Breast cancer status post left mastectomy
History of CVA
Hyperlipidemia
- Continue statin
Spinal stenosis
History of right eye retinal hemorrhage
GERD
-Continue Protonix
Anxiety/depression
- Continue sertraline
Full code
DVT prophylaxis�heparin
Regular diet
Anticipated Discharge: Within 24 hours
Subjective/Interval History
-
Date of Service: November 09, 2024
No pain in the right ankle at rest but notices only with ambulation.
Lives alone in feels difficult to manage at home with the right foot pain and ambulation issues.
Objective Data
-
Labs:
Laboratory Results
11/09/24
06:33
WBC 8.2
Hgb 10.7 L
Hct 32.7 L
Plt Count 198
Sodium 136
Potassium 4.4
Chloride 104
Carbon Dioxide 25
BUN 17
Creatinine 0.7
Glucose 88
Calcium 9.3
Total Bilirubin 0.6
AST 26
ALT < 10
Alkaline Phosphatase 107
Vital Signs:
Vital Signs
Temp Pulse Resp BP Pulse Ox
97.6 F 72 17 175/77 95
11/09/24 11:00 11/09/24 11:00 11/09/24 11:00 11/09/24 11:00 11/09/24 11:00
I&O
11/08/24 11/09/24 11/10/24
06:59 06:59 06:59
Intake Total 120 / 120
Balance 120 / 120
Physical Exam
-
General: Comfortable
Respiratory: Non Labored Respirations; Negative Accessory Resp Muscle Use
Cardiac: Regular Rhythm and S1/S2
GI: Soft
Musculoskeletal: Other (No swelling of the right ankle noted. Painless range of motion at rest. Very focal tenderness in the right posterior lateral foot area with subtle swelling)
Neuro: AO x 3
Psych: Calm
Data Reviewed
-
Labs: Labs Reviewed by me
--- NOTE | 2024-11-09 16:51 | CM ---
Alert awake oriented patient who lives alone in a 2 story home with 6 steps to enter and lives on first floor.She is independent in all activities of daily living.Offered VN she declined.She uses walker and cane.Frederick letter given explained and
signed on chart.
VN hx / No SNF
Pharmacy [facility]
PCP Dr Smith
PLAN Home no needs
[2024-11-09] MEDS: LIPITOR 40 MG PO (20:58)
[2024-11-09] MEDS: MAGNESIUM OXIDE 500 MG PO (23:52)
[2024-11-10] VITALS (9 sets, daily range): BP systolic 110–214; BP diastolic 47–91; PULSE 69; O2SAT 95; BMI 21.7
[2024-11-10] MEDS: SYNTHROID 112 MCG PO (06:25)
[2024-11-10] MEDS: PROTONIX 20 MG PO ×2 (08:07→20:45)
[2024-11-10] MEDS: DIOVAN 80 MG PO (08:07)
[2024-11-10] MEDS: TIKOSYN 250 MCG PO ×2 (08:07→20:45)
[2024-11-10] MEDS: SINEMET 25-100 1.5 TABLET PO ×4 (08:07→21:53)
[2024-11-10] MEDS: PRADAXA 150 MG PO ×2 (08:08→20:44)
[2024-11-10] MEDS: TOPROL XL 100 MG PO (08:08)
[2024-11-10] MEDS: OSCAL CAL 500 500 MG PO (08:08)
[2024-11-10] MEDS: VITAMIN D3 (cholecalciferol) 50 MCG PO (08:08)
[2024-11-10] MEDS: IMDUR (EXTENDED RELEASE) 60 MG PO (08:08)
[2024-11-10] MEDS: ZOLOFT 25 MG PO (08:08)
[2024-11-10] MEDS: TYLENOL 650 MG PO ×2 (08:20→16:16)
--- NOTE | 2024-11-10 12:51 | CM ---
PT indicates SNF.
Requested OT mazinal from .
Spoke with pt she agrees with Snf at dc
Referral placed for [facility] Renaldo Estes [place].
Will need auth
PLAN To SNF after located and after auth obtained
--- NOTE | 2024-11-10 14:29 | W.PN.HOSP.TC ---
Today's Communication/Plan
-
OT eval
DC planning
Assessment / Plan
Assessment / Plan
# Right ankle sprain
- Ankle x-ray shows no acute abnormality
-Boot placed
-Tylenol
- PT/OT-recommends rehab
# Right lower extremity muscle spasms likely secondary to Parkinson's versus restless leg syndrome
-Patient has arterial ultrasound to evaluate for PAD scheduled as outpatient
- Outpatient follow-up with neurology
Parkinson's disease
- Continue carbidopa-levodopa
Persistent atrial fibrillation
- Continue Pradaxa
- Continue dofetilide
Sick sinus syndrome status post pacemaker
History of PAD
CAD status post stents
- Continue isosorbide mononitrate
- Continue metoprolol
Essential hypertension
- Continue nifedipine, valsartan
Carotid artery stenosis status post bilateral endarterectomy
Hypothyroidism
- Continue levothyroxine
Breast cancer status post left mastectomy
History of CVA
Hyperlipidemia
- Continue statin
Spinal stenosis
History of right eye retinal hemorrhage
GERD
-Continue Protonix
Anxiety/depression
- Continue sertraline
Full code
DVT prophylaxis�heparin
Regular diet
Anticipated Discharge: Within 24 hours
Subjective/Interval History
-
Date of Service: November 10, 2024
Pain from right ankle is okay with the boot.
Voices no specific complaints other than issue with leg spasms for which she is following neurology and on magnesium oxide treatments. She has history of Parkinson's disease.
Objective Data
-
Vital Signs:
Vital Signs
Temp Pulse Resp BP Pulse Ox
98.1 F 73 17 138/66 97
11/10/24 11:00 11/10/24 11:00 11/10/24 11:00 11/10/24 11:00 11/10/24 11:00
I&O
11/09/24 11/10/24 11/11/24
06:59 06:59 06:59
Intake Total 120 / 120 1859
Balance 120 / 120 1859
Physical Exam
-
General: No Apparent Distress
Respiratory: Non Labored Respirations; Negative Accessory Resp Muscle Use
Cardiac: Regular Rhythm; Negative S1/S2
Neuro: AO x 3
Psych: Calm
[2024-11-10] MEDS: CATAPRES 0.1 MG PO (16:15)
[2024-11-10] MEDS: LIPITOR 40 MG PO (21:53)
[2024-11-10] MEDS: TOPROL XL 50 MG PO (21:53)
[2024-11-10] MEDS: MAGNESIUM OXIDE 500 MG PO (21:53)
[2024-11-11] MEDS: TYLENOL 650 MG PO ×3 (00:28→13:25)
[2024-11-11 03:00] VITALS: BP 148/62
[2024-11-11] MEDS: SYNTHROID 112 MCG PO (06:14)
[2024-11-11 07:20] VITALS: BP 114/75
[2024-11-11] MEDS: OSCAL CAL 500 500 MG PO (08:24)
[2024-11-11] MEDS: TIKOSYN 250 MCG PO (08:24)
[2024-11-11] MEDS: PROTONIX 20 MG PO (08:24)
[2024-11-11] MEDS: DIOVAN 80 MG PO (08:24)
[2024-11-11] MEDS: PRADAXA 150 MG PO (08:25)
[2024-11-11] MEDS: SINEMET 25-100 1.5 TABLET PO ×3 (08:25→17:25)
[2024-11-11] MEDS: IMDUR (EXTENDED RELEASE) 60 MG PO (08:25)
[2024-11-11] MEDS: ZOLOFT 25 MG PO (08:25)
[2024-11-11] MEDS: VITAMIN D3 (cholecalciferol) 50 MCG PO (08:25)
[2024-11-11] MEDS: TOPROL XL 100 MG PO (08:25)
--- NOTE | 2024-11-11 08:37 | W.PN.HOSP.TC ---
Today's Communication/Plan
-
Discharge planning today
Assessment / Plan
Assessment / Plan
Physical exam:
General: Well Developed, Well Nourished and No Apparent Distress
HEENT: Normocephalic, Atraumatic and Moist Mucous Membranes
Respiratory: Clear to Auscultation; Negative Wheezes, Rales or Rhonchi
Cardiac: Regular Rhythm and S1/S2
GI: Soft, Nontender and Nondistended
Musculoskeletal: Boot in the right ankle placed. No Clubbing, No Cyanosis and No Edema
Neuro: Awake, Alert and Oriented, no neurological deficit
Psych: Calm
A/P:
# Right ankle sprain
- Ankle x-ray shows no acute abnormality
-Boot placed
-Tylenol
- PT/OT-recommends rehab
# Right lower extremity muscle spasms likely secondary to Parkinson's versus restless leg syndrome
-Patient has arterial ultrasound to evaluate for PAD scheduled as outpatient
- Outpatient follow-up with neurology
Parkinson's disease
- Continue carbidopa-levodopa
Persistent atrial fibrillation
- Continue Pradaxa
- Continue dofetilide
Sick sinus syndrome status post pacemaker
History of PAD
CAD status post stents
- Continue isosorbide mononitrate
- Continue metoprolol
Essential hypertension
- Continue nifedipine, valsartan
Carotid artery stenosis status post bilateral endarterectomy
Hypothyroidism
- Continue levothyroxine
Breast cancer status post left mastectomy
History of CVA
Hyperlipidemia
- Continue statin
Spinal stenosis
History of right eye retinal hemorrhage
GERD
-Continue Protonix
Anxiety/depression
- Continue sertraline
Full code
DVT prophylaxis�heparin
Regular diet
Anticipated Discharge: Today
Subjective/Interval History
-
Date of Service: November 11, 2024
Patient with minimal right ankle discomfort when ambulating.
Objective Data
-
Vital Signs:
Vital Signs
Temp Pulse Resp BP Pulse Ox
98.5 F 70 20 114/75 95
11/11/24 07:20 11/11/24 08:24 11/11/24 07:20 11/11/24 08:24 11/11/24 07:20
I&O
11/10/24 11/11/24 11/12/24
06:59 06:59 06:59
Intake Total 1859
Balance 1859
[2024-11-11 09:32] VITALS: BP 129/83; PULSE 69; O2SAT 95
[2024-11-11 10:57] VITALS: BP 126/58
--- NOTE | 2024-11-11 13:54 | W.DCSUMMARY ---
Discharge Summary
Discharge Data
Date of Admission: 11/08/24
Date of Discharge: 11/11/24
-
Pending Results: No
Hospital Course
Patient 83 years old female history of A-fib, hypertension, PVD, Parkinson's, came into the after rolling her ankle and having a right ankle sprain. She was given nonnarcotic pain medication and she was placed on a boot. She participated with PT
and OT and they recommended skilled rehab. Patient's pain has been better controlled and she has agreed to rehab. No other events were noticed for this hospital stay. She will be discharged to skilled rehab today.
Discharge Plan
-
Patient Disposition: Jail/SNF
Discharge Diagnosis/Procedures: Right ankle sprain. Parkinson's disease. Restless leg syndrome. Peripheral vascular disease. History of persistent atrial fibrillation. History of coronary artery disease.
Diet: Low Cholesterol
Activity: As tolerated
Blood Work: Please PCP to order CBC, BMP within 1 week
Referrals:
Florecita Valentine DO [Family Provider, Family Practice] - in less than 1 week
Prescriptions:
New
acetaminophen 325 mg Tablet
650 mg PO Q4HPRN PRN (Reason: mild pain/MCGHEE/temp> 100.4F) Qty: 20 0RF
clonidine HCl 0.1 mg Tablet
0.1 mg PO Q6HPRN PRN (Reason: sbp>160 or dbp>100) Qty: 0 0RF
magnesium oxide 500 mg magnesium Tablet
500 mg PO HS Qty: 0 0RF
Continued
ursodiol 300 MG capsule
600 mg PO DAILY
ursodiol 300 MG capsule
300 mg PO HS
dabigatran etexilate [Pradaxa] 150 MG capsule
150 mg PO BID Qty: 60 1RF
isosorbide mononitrate 60 mg tablet extended release 24 hr
60 mg PO DAILY
metoprolol succinate 100 mg Tablet Extended Release 24 Hr
100 mg PO DAILY Qty: 30 0RF
levothyroxine 112 mcg Tablet
112 mcg PO DAILY
cholecalciferol (vitamin D3) [Vitamin D3] 50 mcg (2,000 unit) Capsule
50 mcg PO DAILY
propranolol 20 mg Tablet
20 mg PO Q4HPRN PRN (Reason: a fib )
atorvastatin 40 mg Tablet
40 mg PO HS
calcium carbonate 500 mg calcium (1,250 mg) Tablet
500 mg PO DAILY
pantoprazole [Protonix] 20 mg Tablet,Delayed Release (Dr/Ec)
20 mg PO BID
dofetilide 250 mcg capsule
250 mcg PO BID
metoprolol succinate 50 mg Tablet Extended Release 24 Hr
50 mg PO HS
sertraline [Zoloft] 25 mg Tablet
25 mg PO DAILY
valsartan 80 mg Tablet
80 mg PO DAILY
furosemide 20 mg Tablet
20 mg PO DAILYPRN PRN (Reason: swelling)
guar gum Packet
1 tbsp PO DAILY
carbidopa-levodopa [Sinemet] 25-100 mg tablet
1.5 tab PO QID
Discontinued
acetaminophen 325 mg Tablet
325 mg PO DAILYPRN PRN (Reason: mild pain)
Discharge Orders:
Discharge Patient (As Directed); Ordered 11/11/24
Ordered By: Oscar Gardiner
Discharge Date and Time
Discharge Date/Time: 11/11/24 18:19
Print Language: [place] CITIZ[place]
--- NOTE | 2024-11-11 14:09 | CM ---
Patient accepted a [facility] NPI# [id number]
MD: Rakel Snell NPI# [id number]
IB authorization for skilled rehab
Auth# [id number]
Approved start date 11/11/24, NRD 11/15/24
Updates to [phone]
[2024-11-11] MEDS: CATAPRES 0.1 MG PO (14:24)
--- NOTE | 2024-11-11 14:30 | CM ---
Patient seen at bedside
per hospitalist stable for dc
Per Lulu at [facility] - bed available today-patient agreeable
Authorization information given to Lulu
PLAN: [facility]
Report #: [phone] - 4th floor
Fax #: [phone]
transportation forms on chart - 6pm set up
[2024-11-11 15:12] VITALS: BP 181/77
[2024-11-11 17:19] VITALS: BP 145/62
== END 2024-11-11 18:19 ==
LOC: 3 WEST ACU 23:35
PROVIDERS: ADMITTING PHYSICIAN Hospitalist; ATTENDING PHYSICIAN Hospitalist; EMERGENCY PHYSICIAN Student in an Organized Health Care Education/Training Program; FAMILY PHYSICIAN Family Medicine
DX: S93.401A Sprain of unspecified ligament of right ankle, initial encounter (principal); M25.571 Pain in right ankle and joints of right foot; I48.19 Other persistent atrial fibrillation; I25.10 Atherosclerotic heart disease of native coronary artery without angina pectoris; K21.9 Gastro-esophageal reflux disease without esophagitis; Z85.3 Personal history of malignant neoplasm of breast; E78.00 Pure hypercholesterolemia, unspecified; I10 Essential (primary) hypertension; I73.9 Peripheral vascular disease, unspecified; G20.A1 Parkinson's disease without dyskinesia, without mention of fluctuations; E03.9 Hypothyroidism, unspecified; M62.838 Other muscle spasm; X50.1XXA Overexertion from prolonged static or awkward postures, initial encounter; Y93.01 Activity, walking, marching and hiking; Y92.9 Unspecified place or not applicable; Z86.73 Personal history of transient ischemic attack (TIA), and cerebral infarction without residual deficits; Z87.19 Personal history of other diseases of the digestive system; Z95.0 Presence of cardiac pacemaker; Z90.12 Acquired absence of left breast and nipple; Z87.891 Personal history of nicotine dependence; Z60.2 Problems related to living alone; Z75.1 Person awaiting admission to adequate facility elsewhere; Z79.890 Hormone replacement therapy; Z79.02 Long term (current) use of antithrombotics/antiplatelets; Z95.5 Presence of coronary angioplasty implant and graft; Z91.041 Radiographic dye allergy status; Z88.8 Allergy status to other drugs, medicaments and biological substances; Z91.048 Other nonmedicinal substance allergy status; F32.A Depression, unspecified; F41.9 Anxiety disorder, unspecified; Z79.01 Long term (current) use of anticoagulants
CPT/HCPCS: 29515; 73610; 80053; 85025; 97116; 97162; 97166; 97530; 97535; 99284; G0378

== ENCOUNTER → 2024-11-14 11:15 | Outpatient (REF) | payer OTHER, SELFPAY ==
[2024-11-14 11:46] LABS: Hemoglobin 11.5 g/dL (12.0-16.0); Mean Corp Hgb Conc. 32.9 g/dL (33.0-37.0); Mean Corpuscular Hgb 30.8 pg (27.0-31.0); Mean Corpuscular Volume 93.8 fL (81.0-99.0); Mean Platelet Volume 10.8 fL (7.4-10.4); Platelet Count 250 10^3/uL (130-400); Red Blood Cell Count 3.73 10^6/uL (4.20-5.40); Red Cell Dist. Width 13.6 % (11.5-14.5); White Blood Cell Count 6.4 10^3/uL (4.8-10.8)
[2024-11-14 11:51] LABS: Blood Urea Nitrogen 19 mg/dl (7-17); Calcium 9.5 mg/dl (8.4-10.2); Carbon Dioxide 25 mmol/L (22-30); Chloride 102 mmol/L (98-107); Glucose 83 mg/dl (70-99); Potassium 4.9 mmol/L (3.5-5.1); Sodium 136 mmol/L (135-145); eGFR > 60.00
[2024-11-14 13:45] LABS: Absolute Neutrophils -Man Diff 3.5 10^3/uL (1.4-6.5); Band Neutrophils 0 % (0-3); Eosinophils 1 % (0-6); Lymphocytes 21 % (20-51); Monocytes 22 % (2-9); Segmented Neutrophils 56 % (42-75)
[2024-11-14 13:46] LABS: Platelets Checked Yes; Total Cells Counted 100
[2024-11-14 13:47] LABS: Normal RBC Morphology Yes
== END ==
LOC: OLABP 11:15
PROVIDERS: ATTENDING PHYSICIAN Family Medicine
DX: I48.0 Paroxysmal atrial fibrillation (principal); G20.C Parkinsonism, unspecified; E03.9 Hypothyroidism, unspecified; I25.10 Atherosclerotic heart disease of native coronary artery without angina pectoris; I73.9 Peripheral vascular disease, unspecified; I49.5 Sick sinus syndrome; K21.9 Gastro-esophageal reflux disease without esophagitis; S93.409D Sprain of unspecified ligament of unspecified ankle, subsequent encounter; Z95.0 Presence of cardiac pacemaker
CPT/HCPCS: 36415; 80048; 85025

== ENCOUNTER 2024-11-18 22:39 | Inpatient (IN) | payer OTHER, SELFPAY ==
--- NOTE | 2024-11-18 19:04 | ED.CVA ---
History of Present Illness
General
Chief Complaint: CVA/TIA Symptoms
Source: patient and ambulance crew
Exam Limitations: none
Time Seen by Provider: 11/18/24 18:54
Nursing documentation reviewed up to this point in time: agreed with
Onset of Stroke Symptoms
Onset of symptoms known: Yes
Date of onset of symptoms: 11/18/24
Time of onset of symptoms: 17:00
Time pt last seen normal is known: No
History of Present Illness
History of Present Illness:
Note:
CHIEF COMPLAINT(S)
Aphasia and mild headache.
HISTORY OF PRESENT ILLNESS
The patient is an 84-year-old female with a past medical history of cerebrovascular accident (CVA) presenting from a rehabilitation unit with complaints concerning for new-onset expressive aphasia. The patient describes this as 'the words were in my
head and I couldn�t get them out,� which has been intermittently resolving but recurring. She has never experienced this before and reports a mild headache without any focal neurological deficits from previous CVAs. The patient�s blood pressure has
been elevated, recorded at 180/77 mmHg since her stay at [facility], which has been for at least one week. She has a history of atrial fibrillation and a pacemaker. Her pulse is 86 beats per minute and glucose level is 130 mg/dL. On examination, she
is oriented and able to speak clearly, although has occasional difficulty with word recall. The [place] Stroke Scale is unremarkable apart from the speech difficulty. Physical examination revealed an asymmetry in sensation.
PHYSICAL EXAM
Physical Exam
General: no apparent distress, not acutely ill
Neck: supple. no meningeal signs. normal posterior pharynx
Heart: s1/s2 regular rate and rhythm, no murmur. equal radial
pulses.
HEENT: Pupils equal round reactive to light, EOMI
Lungs: no acute respiratory distress. clear bilaterally
Abdomen: normal bowel sounds. not tender. no CVAT
Neurological: Oriented to person and place, but not year, speech clear but with occasional word-finding difficulty, no motor deficits noted on limb movements.
Sensation: Reported asymmetry on sensory examination. Neuro: alert and oriented. no focal neurological deficits cranial nerves II through XII intact
Skin: no rash
Psychiatric: well kept. interactive and cooperative
Extremities: no edema. no calf tenderness. negative homans. good distal pulses
DIFFERENTIAL DIAGNOSIS
The Differential Diagnosis includes, in no particular order and is not limited to:
1. Transient Ischemic Attack (TIA)
2. Ischemic stroke
3. Subclinical atrial fibrillation-induced embolism
4. Hypertensive encephalopathy
5. Aphasic migraine
6. Post-stroke aphasia
7. Brain tumor
8. Medication-induced speech disturbance
9. Early onset dementia
10. Hypoglycemia
PLAN
Perform an ECG to assess cardiac status and manage atrial fibrillation. Further imaging, such as a CT scan of the head, is warranted to rule out an acute cerebrovascular event. Monitoring and controlling the patient�s blood pressure are essential.
Consider evaluating for potential medication adjustment for hypertension and anticoagulation status.
Note:
CARE-UPDATE
11/18/24 - 21:49
Patient [place]: CT angiography of head and neck reveals no acute findings. No indication for intra-arterial therapy (IAT). Admit to hospital for further evaluation and neurologic assessment.
Disposition:
SUMMARY OF ENCOUNTER
The patient presented with new-onset expressive aphasia and a mild headache, possibly related to a transient ischemic attack or another cerebrovascular event. Despite no recent significant deficits from previous CVAs, she experienced difficulties
with word recall. Given her elevated blood pressure, history of atrial fibrillation, and presence of a pacemaker, she was admitted for further neurological assessment and work-up. A CT angiography of the head and neck showed no acute findings,
negating the need for intra-arterial therapy. Hospital admission was deemed necessary for further evaluation.
DISPOSITION
Admitted to the hospital for further evaluation and neurological assessment.
INDEPENDENT REVIEW OF LABS AND INTERPRETATION OF TESTS
My independent interpretation of CT angiography of the head and neck is that there are no acute findings.
MEDICATION RECONCILIATION
Blood pressure management and possible anticoagulation were considered, though specific medications were not detailed in the encounter. Elevated blood pressure monitoring and control were prioritized.
MEDICAL DECISION MAKING
1. Number & Complexity of Problems: Chronic conditions affecting care include cerebrovascular accident, atrial fibrillation, and hypertension. Differential diagnoses considered are transient ischemic attack, ischemic stroke, and hypertensive
encephalopathy.
2. Data Reviewed: CT angiography was ordered and reviewed, leading to the decision against immediate intra-arterial therapy.
3. Risk: Admission for observation was chosen due to the complexity and risk associated with potential cerebrovascular events. Outpatient management was not pursued given the need for further evaluation and assurance against acute events.
PATHOLOGIES TO CONSIDER
- Ischemic stroke
- Transient Ischemic Attack (TIA)
- Hypertensive encephalopathy
Past History
Past History
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
ED Past Surgical History: Cardiac (Pacemaker, PTCI) and Other (Mastectomy L, renal artery PTCI)
Social History
Tobacco: Former smoker
Alcohol: Occasional
Drug: None
Personal: Other
Living: alone
Employment: Retired
Family History
Family History: Other
Phy Exam
Physical Exam
Physical Exam:
.
Scores
NIH Stroke Score
Level of Consciousness: 0 - Alert
LOC Questions: 1-Answers one correctly
LOC Commands: 0-Performs both correctly
Best Horizontal Gaze: 0-Normal
Visual Marques: 0=Normal, no visual loss
Facial Palsy: 0=Normal, symmetrical
Motor - Right Arm: 0=No drift 10 seconds
Motor - Left Arm: 0=No drift 10 seconds
Motor - Right Le-No drift 5 seconds
Motor - Left Le-No drift 5 seconds
Limb Ataxia: 0-Absent
Sensation: 0-Normal
Best Language: 1-Mild aphasia
Dysarthria: 0-Normal
Extinction and Inattention: 1-Sensory inattention
NIH Total Score:: 3
Course
Orders/Labs/Results
Orders:
Orders
11/18/24 18:58
Electrocardiogram (*1) Urgent
Reason for Study: Other
Other Reason for Exam: Possible Stroke
CT HEAD STROKE ALERT W/o Cont Urgent
Comment:
Reason For Exam: aphasia
Bedside Glucose- Treatment ONCE
Cardiac Monitoring- Treatment ONCE
EKG- Treatment ONCE
IV Insert/Care/Rem.- Treatment PRN
Vital Signs As Directed
Frequency: Other
Weight As Directed
Frequency: Once
Comment: ZERO STRETCHER SCALE FOR ACCURATE WEIGHT
O2 Therapy [RESP] Urgent
Titrate/Wean O2 to maintain O2 sat greater than (%): 93
Special Instructions: MAINTAIN CONTINUOUS O2 SATS > OR = 93%
11/18/24 19:02
CT HEAD/NECK ANG STROKE ALERT Urgent
Comment:
Reason For Exam: expressive aphasia, confusion
Cardiac Monitoring- Treatment ONCE
11/18/24 19:20
Complete Blood Count/With Diff Urgent
Comprehensive Metabolic Panel Urgent
PTT Urgent
Prothrombin Time Urgent
Troponin I Urgent
11/18/24 19:29
Diphenhydramine [Benadryl] 50 mg IV NOW STA
Hydrocortisone Sod Succinate [Solu-Cortef] 200 mg IV NOW STA
11/18/24 21:22
Urinalysis Reflex To Culture Urgent
Date Specimen was Collected: 11/18/24
Time Specimen was Collected: 21:20
Urine Microscopic Reflex Cult Urgent
Urine Culture Urgent
MARYURI Source: U
Specimen Description:
Date Specimen was Collected: 11/18/24
Time Specimen was Collected: 21:20
Abnormal Lab Results
11/18/24 11/18/24 11/18/24
19:20 19:24 21:22
WBC 12.2 H 10^3/uL
(4.8-10.8)
RBC 4.08 L 10^6/uL
(4.20-5.40)
MCH 31.1 H pg
(27.0-31.0)
MPV 10.5 H fL
(7.4-10.4)
Absolute Neuts (auto) 8.4 H 10^3/uL
(1.4-6.5)
Absolute Monos (auto) 1.9 H 10^3/uL
(0.1-0.6)
Lymphocytes % 12.7 L %
(20.5-51.1)
Monocytes % 15.5 H %
(1.7-9.3)
APTT 41.6 H Sec
(23.4-35.0)
Sodium 133 L mmol/L
(135-145)
BUN 27 H mg/dl
(7-17)
Glucose 144 H mg/dl
(70-99)
Alkaline Phosphatase 138 H U/L
(38-126)
Total Protein 8.8 H g/dl
(6.3-8.2)
Leukocyte Esterase Rfl 1+ A
(Negative)
Urine Albumin (Reflex) 1+ A
(Neg - Trace)
POC Glucose 145 H mg/dl
(70-99)
11/18/24 19:20
11/18/24 19:20
Vital Signs
Initial and Last Documented VS:
Initial Vital Signs
Temp Pulse Resp Pulse Ox
98.3 F 71 16 97
11/18/24 18:54 11/18/24 18:54 11/18/24 18:54 11/18/24 18:54
Last Documented Vital Signs
Temp Pulse Resp BP Pulse Ox
98.3 F 70 16 187/103 96
11/18/24 18:54 11/18/24 21:15 11/18/24 21:15 11/18/24 21:00 11/18/24 21:15
*Pulse Oximetry
SaO2: 97
Oxygen Mode of Delivery: Room air
Patient hypoxic: no
*Critical Care Note
Total Time (30-74mins, 75-104mins- exclusive of procedures): 35 (Critical care statement: A total of 35 minutes of critical care time was provided for this patient. This includes management of unstable vital signs, evaluation of the patient at
bedside, reviewing the patient's pertinent medical records, discussion with consultants, review of old EKGs and review of)
ED Attending Note
-
Portions of this chart may have been created with voice recognition software.� Occasional wrong word or��sound alike� substitutions may have occurred due to the inherent limitations of voice recognition software.
Discharge Plan
Departure
Patient Disposition: Admit
Date of Disposition: 11/18/24
Time of Disposition: 21:37
Admit to: Telemetry
Presentation/result/management discussed w/ accepting MD/DO: Hospitalist
Patient with high blood pressure during this ER visit?: Yes
Condition: Fair
Discharge Problem:
Acute cerebrovascular accident (CVA)
Prescriptions:
No Action
ursodiol 300 MG capsule
600 mg PO DAILY
ursodiol 300 MG capsule
300 mg PO HS
dabigatran etexilate [Pradaxa] 150 MG capsule
150 mg PO BID Qty: 60 1RF
isosorbide mononitrate 60 mg tablet extended release 24 hr
60 mg PO DAILY
metoprolol succinate 100 mg Tablet Extended Release 24 Hr
100 mg PO DAILY Qty: 30 0RF
levothyroxine 112 mcg Tablet
112 mcg PO DAILY
cholecalciferol (vitamin D3) [Vitamin D3] 50 mcg (2,000 unit) Capsule
50 mcg PO DAILY
propranolol 20 mg Tablet
20 mg PO Q4HPRN PRN (Reason: a fib/HR>100)
atorvastatin 40 mg Tablet
40 mg PO HS
calcium carbonate 500 mg calcium (1,250 mg) Tablet
500 mg PO DAILY
pantoprazole [Protonix] 20 mg Tablet,Delayed Release (Dr/Ec)
20 mg PO BID
dofetilide 250 mcg capsule
250 mcg PO BID
metoprolol succinate 50 mg Tablet Extended Release 24 Hr
50 mg PO HS
sertraline [Zoloft] 25 mg Tablet
25 mg PO DAILY
valsartan 80 mg Tablet
80 mg PO DAILY
furosemide 20 mg Tablet
20 mg PO DAILYPRN PRN (Reason: edema)
guar gum Packet
1 tbsp PO DAILY
carbidopa-levodopa [Sinemet] 25-100 mg tablet
1.5 tab PO QID
clonidine HCl 0.1 mg Tablet
0.1 mg PO Q6HPRN PRN (Reason: sbp>160 or dbp>100) Qty: 0 0RF
magnesium oxide 500 mg magnesium Tablet
500 mg PO HS Qty: 0 0RF
nifedipine 30 mg Tablet Extended Release 24hr
30 mg PO QPM
lidocaine 4 % Adhesive Patch,Medicated
1 patch TOPICAL DAILY
acetaminophen [Tylenol Extra Strength] 500 mg Tablet
1,000 mg PO Q8H
magnesium hydroxide [Milk of Magnesia] 400 mg/5 mL Suspension
30 ml PO [id number] PRN (Reason: if no BM x 3 days)
Patient Comments:
11/18/2024, give on day 4.
bisacodyl [Dulcolax (bisacodyl)] 10 mg Suppository
10 mg RI DAILY PRN (Reason: if MOM ineffective)
Patient Comments:
11/18/2024, give on day 5.
cyclobenzaprine 5 mg Tablet
5 mg PO DAILYPRN PRN (Reason: muscle spasm)
Fleet Enema Extra 19-7 gram/197 mL Enema
197 ml RI DAILYPRN PRN (Reason: if dulcolax supp ineffective)
Patient Comments:
11/18/2024, give on day 6.
acetaminophen 325 mg tablet
650 mg PO Q4HPRN MDD 3000 mg PRN (Reason: mild pain/MCGHEE/temp> 100F)
Referrals:
Shellie Snell DO [Family Provider, General]
Interventions
Interventions:
*Risk Screen - Suicide Last Done: 11/18/24 18:54
*General Assessment Last Done: 11/18/24 18:54
*Neglect/Abuse Screening Last Done: 11/18/24 18:54
*ED- Fall Risk Assessment Last Done: 11/18/24 19:27
*ED COVID-19 Vaccine History Last Done: 11/18/24 19:27
ED- Pulmonary Assessment Last Done: 11/18/24 19:16
ED- Neurological Assessment Last Done: 11/18/24 19:01
ED- Cardiac Assessment Last Done: 11/18/24 19:16
Discharge Date and Time
Print Language: TELUGU
[2024-11-18 19:14] VITALS: BP 165/104
[2024-11-18 19:26] LABS: Glucose - Point of Care 145 mg/dl (70-99)
[2024-11-18 19:29] LABS: % Basophils 0.7 % (0-2); % Eosinophils 2.5 % (0-6); % Immature Granulocytes 0.3 % (0-0.5); % Lymphocytes 12.7 % (20.5-51.1); % Monocytes 15.5 % (1.7-9.3); % Neutrophils 68.3 % (42.2-75.2); Absolute Basophils 0.1 10^3/uL (0-0.2); Absolute Eosinophils 0.3 10^3/uL (0-0.7); Absolute Lymphocytes 1.6 10^3/uL (1.2-3.4); Absolute Monocytes 1.9 10^3/uL (0.1-0.6); Absolute Neutrophils 8.4 10^3/uL (1.4-6.5); Hematocrit 37.7 % (37.0-47.0); Hemoglobin 12.7 g/dL (12.0-16.0); Mean Corp Hgb Conc. 33.7 g/dL (33.0-37.0); Mean Corpuscular Hgb 31.1 pg (27.0-31.0); Mean Corpuscular Volume 92.4 fL (81.0-99.0); Mean Platelet Volume 10.5 fL (7.4-10.4); Nucleated Red Blood Cells % 0 %; Platelet Count 282 10^3/uL (130-400); Red Blood Cell Count 4.08 10^6/uL (4.20-5.40); Red Cell Dist. Width 13.5 % (11.5-14.5); White Blood Cell Count 12.2 10^3/uL (4.8-10.8)
[2024-11-18] MEDS: SOLU-CORTEF 200 MG IV (19:32)
[2024-11-18] MEDS: BENADRYL 50 MG IV (19:32)
[2024-11-18 19:38] LABS: INR 1.08; PT 14.3 Sec (11.4-14.6)
[2024-11-18 19:39] LABS: APTT 41.6 Sec (23.4-35.0)
[2024-11-18 19:46] VITALS: BP 173/64
[2024-11-18 19:51] LABS: ALT (SGPT) < 10 U/L (0-35); AST (SGOT) 26 U/L (14-36); Albumin 4.9 g/dl (3.5-5.0); Alkaline Phosphatase 138 U/L (38-126); Blood Urea Nitrogen 27 mg/dl (7-17); Calcium 9.8 mg/dl (8.4-10.2); Carbon Dioxide 24 mmol/L (22-30); Chloride 98 mmol/L (98-107); Glucose 144 mg/dl (70-99); Potassium 4.8 mmol/L (3.5-5.1); Sodium 133 mmol/L (135-145); Total Bilirubin 0.6 mg/dl (0.2-1.3); Total Protein 8.8 g/dl (6.3-8.2); eGFR > 60.00
[2024-11-18 20:00] VITALS: BP 189/157
[2024-11-18 20:02] LABS: Troponin I < 0.012 ng/ml
[2024-11-18 21:00] VITALS: BP 187/103
[2024-11-18 21:38] LABS: Urine Albumin 1+ (Neg - Trace); Urine Bilirubin Negative (Negative); Urine Character Clear (Clear); Urine Glucose Negative (Negative); Urine Ketone Negative (Negative); Urine Leukocyte 1+ (Negative); Urine Nitrite Negative (Negative); Urine Occult Blood Negative (Negative); Urine Urobilinogen Negative (Neg - 1+)
[2024-11-18 21:39] LABS: Urine Color Straw
--- NOTE | 2024-11-18 21:42 | HPS.HSE ---
Family Physician
-
Family Physician: Shellie Snell,
Chief Complaint
-
CVA/TIA symptoms
History of Present Illness
This is a 84-year-old female with past medical history significant for permanent atrial fibrillation on anticoagulation Pradaxa, carotid stenosis status post endarterectomy, prior CVA, hypertension, hypothyroid, CAD, status post PPM, Parkinson's
disease presenting to the emergency department with acute strokelike symptoms with expressive aphasia.
Patient reports being in usual state of health up until around 530 when she could not form a worse although she had them in adults. She called her daughter at that time and spoke to the daughter saying that she could not speak. Today came to the
rehab facility to talk to the mother. After seeing a more she said this is not normal for her. The proximal complaint of a headache. She denied any new weakness. There was no facial asymmetry. She had no trouble swallowing. She denied any
double vision or blurry vision. She denies any dizziness.
Reports 4 days of intermittent urinary frequency without urgency or dysuria.
She was recently admitted for ambulatory dysfunction and has been at rehab since November 11. She denies any prior episodes of aphasia. She she reports that in the past when she has had a history of strokes she had no focal deficits. Just headaches.
In the Emergency Department she was hypertensive to 180/100, pulse was 78 and she was satting 96% on room air. Troponin was negative. CT of the head shows a new nonhemorrhagic left frontal lobe region infarct, CT angio shows redemonstration of
complete occlusion of the majority of the right internal carotid artery with no new or worsening vascular occlusion on, no aneurysm or dissection.
Medical History
Past Medical History
Past Medical History: Reports Other (persistent atrial fibrillation on Pradaxa, sick sinus syndrome status post pacemaker, CAD status post stents, PAD, hypertension, carotid artery stenosis status post bilateral endarterectomy, Parkinson's disease,
hypothyroidism, breast cancer status post left mastectomy, CVA, hyperlipidemia, spinal s)
Past Surgical History: Reports None
Social History
Tobacco: Non-smoker
Alcohol: Occasional
Drug: None
Family History
Family History: Not pertinent
Allergies / Home Medications
Allergies reflects when Allergies were last updated in [facility].
Home Medications with original date entered in [facility]
Allergy/Medication List:
Allergies
Allergy/AdvReac Type Severity Reaction Status Date / Time
adhesive Allergy Redness, Verified 06/28/24 18:01
rash
amiodarone Allergy tremors Verified 06/28/24 18:01
diltiazem Allergy Rash Verified 06/28/24 18:01
hydralazine (Hydralazine) Allergy RAMSEY, Verified 06/28/24 18:01
Fatigue,
Dizziness
Iodinated Contrast Media Allergy Rash and Verified 06/28/24 18:01
(Iodinated Contrast Media - Warmth
IV Dye)
iodine (Iodine) Allergy rash with Verified 06/28/24 18:01
ivp dye
omeprazole Allergy Nausea Verified 06/28/24 18:01
spironolactone Allergy kidney Verified 06/28/24 18:01
failure-
Hypercalcemia
Home Medications
nifedipine 60 mg tablet,extended release 60 mg PO DAILY Blood pressure 06/06/16
ursodiol 300 mg capsule 300 mg PO HS Urinary issue 01/23/17
ursodiol 300 mg capsule 600 mg PO DAILY Urinary issue 01/23/17
dabigatran etexilate 150 mg capsule (Pradaxa) 150 mg PO BID #60 caps 08/04/21
isosorbide mononitrate 60 mg tablet,extended release 24 hr 60 mg PO DAILY CHEST PAIN 05/18/22
metoprolol succinate 100 mg tablet,extended release 24 hr 100 mg PO DAILY #30 tabs 05/28/22
cholecalciferol (vitamin D3) 50 mcg (2,000 unit) capsule (Vitamin D3) 50 mcg PO DAILY Supplement 06/21/23
levothyroxine 112 mcg tablet 112 mcg PO DAILY Thyroid 06/21/23
propranolol 20 mg tablet 20 mg PO Q4HPRN PRN a fib 06/23/23
atorvastatin 40 mg tablet 40 mg PO HS High Cholesterol 06/29/23
calcium carbonate 500 mg PO DAILY Supplement 12/07/23
pantoprazole 20 mg tablet,delayed release (Protonix) 20 mg PO BID Gastrointestinal Issue 02/09/24
dofetilide 250 mcg capsule 250 mcg PO BID Arrhythmia 02/16/24
acetaminophen 325 mg tablet 325 mg PO DAILYPRN PRN mild pain 06/29/24
furosemide 20 mg tablet 20 mg PO DAILYPRN PRN swelling 06/29/24
guar gum 1 tbsp PO DAILY Constipation 06/29/24
metoprolol succinate 50 mg tablet,extended release 24 hr 50 mg PO HS Blood Pressure 06/29/24
sertraline 25 mg tablet (Zoloft) 25 mg PO DAILY Depression 06/29/24
valsartan 80 mg tablet 80 mg PO DAILY Blood Pressure 06/29/24
carbidopa 25 mg-levodopa 100 mg tablet (Sinemet) 1 tab PO TID #90 tabs 07/02/24
Review of Systems
-
Constitutional: Reports No Symptoms
EENT: Reports No Symptoms
Respiratory: Reports No Symptoms
Cardiac: Reports No Symptoms
Abdomen/GI: Reports No Symptoms
: Reports No Symptoms
Musculoskeletal: Reports No Symptoms
Skin: Reports No Symptoms
Neurological: Reports Headache and Other (Expressive aphasia)
Endocrine: Reports No Symptoms
Hematologic/Lymphatic: Reports No Symptoms
Psych: Reports No Symptoms
Physical Exam
Vital Signs
Vital Signs
Temp Pulse Resp BP Pulse Ox
98.3 F 70 16 187/103 96
11/18/24 18:54 11/18/24 21:15 11/18/24 21:15 11/18/24 21:00 11/18/24 21:15
Physical Exam
General: Well Developed, Well Nourished and No Apparent Distress
HEENT: NormoCephalic, Moist mucous membranes and Atraumatic
Respiratory: Clear
Cardiac: S1/S2 and Regular Rhythm; No Murmur or Rub
GI: Soft, Non Tender, Non Distended and Normal Bowel Sounds; No Organomegaly
Rectal: Deferred by Provider
Musculoskeletal: No Clubbing, No Cyanosis and No Edema
Skin: No Rash
Neuro: AO x 3, No Motor Deficits, Nonfocal/grossly intact, Cranial Nerves Intact and No Sensory Deficits; No Slurred Speech, Facial Droop or Tremors
Hematologic/Lymphatic: No Lymphadenopathy
Psych: Calm
Laboratory Results
-
11/18/24 19:20
11/18/24 19:20
Laboratory Results
PT 14.3 Sec (11.4-14.6) 11/18/24 19:20
INR 1.08 11/18/24 19:20
APTT 41.6 Sec (23.4-35.0) H 11/18/24 19:20
Total Bilirubin 0.6 mg/dl (0.2-1.3) 11/18/24 19:20
AST 26 U/L (14-36) 11/18/24 19:20
ALT < 10 U/L (0-35) 11/18/24 19:20
Alkaline Phosphatase 138 U/L (38-126) H 11/18/24 19:20
Troponin I < 0.012 ng/ml 11/18/24 19:20
Data Reviewed
-
CT Scan: Report Reviewed by me
Medical Tests (Nuc Med, Echo, EKG etc): Image Personally Visualized and interpreted
Lab Data: Labs Reviewed by me
Old Records: Reviewed
Impression/Plan
-
IMPRESSION:
81-year-old female with past medical history significant for permanent atrial fibrillation status post pacemaker on Pradaxa, Parkinson's disease, history of carotid stenosis status post endarterectomy, hypertension, hypothyroid, depression presented
to the emergency department with acute expressive aphasia that started around 5:30 PM. Patient is still ongoing expressive aphasia without any other focal logical deficits. Found to have a left frontal lobe CVA on CT scan. Patient is on
anticoagulation is not a candidate for IAT. CT angio showed resume remainder demonstration of complete occlusion of the majority of the right internal carotid artery without any new changes.
PLAN:
CVA/TIA -expressive aphasia since 5:30 PM, possible CVA of the left frontal lobe on CT scan, patient on anticoagulation and not a candidate for IAT. No bleed on CT scan. Ischemic versus embolic etiology.
-Admit to telemetry
-hold Pradaxa
- Aspirin 81, plavix 75 x 1, d/w neuro
- neurochecks q 4
- permissive htn
- MRI in a.m.
- Echo
- restart Anticoagulation if no bleed on MRI and focus of ischemia is small
- PT OT consultation
- Neurology consultation
[facility] -department atrial fibrillation status post pacemaker
- Continue rate control, metoprolol succinate 100 mg a.m. 50 mg at bedtime
- Dofetilide 250 mcg's twice daily
HTN
-Permissive hypertension, SBP goal less than 180 for now, as needed hydralazine
-When tolerating p.o. will continue below
- Clonidine 0.1 as needed
- Continue metoprolol as above
- Nifedipine
Urinary frequency - htn vs uti
- u/a pending
DVT PPX -on Pradaxa, SCDs
CODE STATUS�full code
[2024-11-18 21:49] LABS: Urine Bacteria Few (Negative); Urine Red Blood Cell 0-2 /HPF (0-2)
[2024-11-18] MEDS: OFIRMEV 100 IV (22:30)
[2024-11-18] MEDS: PLAVIX 75 MG PO (22:36)
[2024-11-18] MEDS: LOW STRENGTH ASPIRIN 81 MG PO (22:36)
[2024-11-18 23:00] VITALS: BP 173/63
[2024-11-19] VITALS (9 sets, daily range): BP systolic 83–168; BP diastolic 41–96; PULSE 70–71; O2SAT 96; BMI 24.5
[2024-11-19] MEDS: SINEMET 25-100 1.5 TABLET PO ×5 (00:57→21:20)
[2024-11-19] MEDS: SYNTHROID 112 MCG PO (05:44)
[2024-11-19 07:02] LABS: Hematocrit 37.3 % (37.0-47.0); Hemoglobin 12.5 g/dL (12.0-16.0); Mean Corp Hgb Conc. 33.5 g/dL (33.0-37.0); Mean Corpuscular Hgb 30.7 pg (27.0-31.0); Mean Corpuscular Volume 91.6 fL (81.0-99.0); Mean Platelet Volume 10.5 fL (7.4-10.4); Platelet Count 250 10^3/uL (130-400); Red Blood Cell Count 4.07 10^6/uL (4.20-5.40); Red Cell Dist. Width 13.5 % (11.5-14.5)
[2024-11-19 07:07] LABS: INR 1.09; PT 14.5 Sec (11.4-14.6)
[2024-11-19 07:30] LABS: Erythrocyte Sed Rate 45 mm/hour (0-20)
[2024-11-19 07:58] LABS: ALT (SGPT) < 10 U/L (0-35); AST (SGOT) 23 U/L (14-36); Albumin 4.4 g/dl (3.5-5.0); Alkaline Phosphatase 106 U/L (38-126); Blood Urea Nitrogen 28 mg/dl (7-17); Carbon Dioxide 23 mmol/L (22-30); Chloride 102 mmol/L (98-107); Estimated Creatinine Clearance 32 ml/min; Glucose 121 mg/dl (70-99); HDL Cholesterol 50 mg/dl; LDL Cholesterol, Calculated 82 mg/dl; Potassium 5.4 mmol/L (3.5-5.1); Sodium 135 mmol/L (135-145); Total Bilirubin 0.6 mg/dl (0.2-1.3); Total Cholesterol 146 mg/dl (50-199); Total Protein 8.1 g/dl (6.3-8.2); Triglyceride 70 mg/dl (10-149); Very Low Density Lipoprotein 14 mg/dl (0-30); eGFR > 60.00
--- NOTE | 2024-11-19 07:59 | CON.NEURO ---
Addendum entered and electronically signed by Ivan Tang MD 11/19/24 14:25:
Studies reviewed.
I have personally examined the patient. I reviewed and agree with the DINKEY PRESS OPERATOR's Note.
My addenda:
Awake, alert, interactive. No acute distress.
Speech minimal word-finding issues, rarely.
Follows 2-step requests w/o difficulty. No tremor.
Extra-ocular movements grossly intact.
Facial movements full and symmetric. Hearing intact to normal conversational volume.
Normal UE movements bilaterally.
Neck: full ROM.
Chest: no dyspnea
Heart: no JVD
Ext: (-) Clubbing, (-) Cyanosis, (-) Edema
IMPRESSIONS/RECOMMENDATIONS:
Abrupt onset of aphasia, marry to prior issues with headache and accelerated hypertension
restart Dabigatran
continue Carbidopa-Levodopa for Parkinson's disease
rehab evaluations
numerous outpatient antibody abnormalities of unclear association with symptoms
D/W patient
Will continue to follow patient.
Original Note:
Documented by User: Kimberly Hernandez NP 11/19/24 11:57
Neuro Assessment/Plan
Assessment
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
hypertension, hypothyroid, depression presented to the [facility] on 11/18/2024 with acute expressive aphasia that started around 5:30 PM found to have a left frontal lobe CVA on CT scan.
Head CT: Nonhemorrhagic left frontal lobe region infarct, possibly acute/subacute.
Head and neck CTA: Redemonstration of complete occlusion of the majority of the right internal carotid artery. No new or worsening vascular occlusion. No aneurysm or dissection.
TTE:
Left ventricular ejection fraction is >75%. Normal regional wall motion.
Normal right ventricular size and function. Pacer wire seen in right ventricle.
Moderately to severely dilated left atrium. Moderately dilated right atrium.
Mild to moderate aortic stenosis; peak/mean gradients 15/9 mmHg, calculated LINDY
is 1.2 cm2.
Brain MRI pending
Labs: ESR 45, Cholesterol 146, LDL 82
Brain MRI without shun (06/27/2024)�punctuate right frontal/frontoparietal lobes subacute infarcts, severe bihemispheric leukoaraiosis
CTA head/neck(11/06/2023)-Right proximal internal carotid artery occlusion near its origin to the level of the right MCA/no dissection.
Brain MRI (08/03/2021):
1. Multiple small acute to subacute nonhemorrhagic infarcts at the right frontoparietal junction.
2. A few scattered chronic-appearing punctate foci of microhemorrhage in the bilateral cerebral hemispheres raise suspicion for cerebral amyloid angiopathy, or less likely hypertensive angiopathy.
3. Moderate age-related parenchymal atrophy.
4. Moderate to severe chronic microangiopathic ischemia.
Plan
Impressions:
I. Left frontal lobe region infarct, possibly acute/subacute.
II. Chronic right ICA occlusion
III. Paroxysmal A-Fib on Pradaxa. History of R MCA territory ischemic stroke while on Eliquis
III. Parkinson's disease with possible orthostatic hypotension
-MRI pending
-give clopidogrel 75 mg now, resume pradaxa tomorrow
-current LDL 82 with goal LDL<70, would advance atorvastatin from 40 mg to 80 mg although no clear scientific evidence that this will be of assistance in a person of this advanced age
-PT/OT/ST evaluations
-neurochecks and NIHSS per unit guidelines
-normoglycemia with hgb A1C <7
-check orthostatic vital signs BID. Adjustment of BP meds per primary team. Slow position changes, YUVAL stockings during the day.
-DVT prophylaxis
-continue Carbidopa-Levodopa for Parkinson's disease
-follow up with outpatient Neurologist Dr. Cervantes
-stroke education materials to be provided
All questions encouraged and answered, plan of care discussed with Dr. Tang and patient
Consultation
Order
Date of Consultation: 11/19/24
Requesting Provider: hospitalist
Reason for Consult: expressive aphasia
Subjective/Objective
Subjective Data
Date of Service: November 19, 2024
Adapted from neurology note by Dr. Gage from 06/29/2024:
'HPI: This is an 84-year-old woman who presented to [facility] on 06/28/2024 with abnormal brain MRI results.
Ms. Godfrey was reportedly seen by Lisa Cervantes MD([facility] neurology) for progressive ambulatory dysfunction and had brain MRI on 06/27/2024 that showed subacute right MCA distribution infarcts.
The patient has a history of right MCA stroke in 2021 with residual minimal left arm weakness (difficulties with writing).
She states that she has been compliant with Pradaxa. She gets her medication shipped from [facility]. Patient has a history of peripheral artery disease that included bilateral CEA and bilateral ICA occlusion based on
Assessment and Plan:
I. Subacute right MCA distribution embolic infarcts. Likely etiology�artery to artery athero-embolism
II. Chronic bilateral ICA occlusion
III. PA A-Fib
IV. Vascular parkinsonism
-Continue Telemetry monitoring
-Fall precautions,
-Cardiology evaluation for Watchman procedure
-Continue Pradaxa, will confirm medication compliance
-LDL goal�less than 100
-PT.
-DVT prophylaxis.'
Adapted from neurology note by Julienne GONZALES on 10/16/2024:
'History of Present Illness Latha Godfrey is a 84 y.o. female who presents to the office today for follow up evaluation. She had previously been seen in our office for leg weakness and balance difficulty concerning for possible Parkinson's etiology.
Her past medical history is significant for PAD, Afib (on pradaxa), COPD, hypertension, hyperlipidemia, CVA (2021), left carotid endarterectomy, right carotid artery occlusion and GERD. PSH significant for bilateral carotid endarterectomy (around
2016). Parkinson's Disease and Medication Regimen The primary reason for this visit is to assess the effectiveness of the carbidopa-levodopa (Sinemet) regimen initiated approximately 3 months ago. Sinemet is taken at 10 AM, 2 PM, and 6 PM, with
timing variations depending on her wake-up time. Mild nausea from the medication is alleviated by eating a cracker. She reports some improvement in her symptoms, although the extent is not significant, with fluctuations in her condition. She has
noticed a drastic improvement in her tremor and it was also noticed her walking is easier and she was able to take longer steps. Inconsistent medication intake, including occasional missed doses, exacerbates her tremors and walking difficulties.
Severe night cramps or spasms, which force her out of bed to walk for relief, are more pronounced after midnight. Increased instability and difficulty walking are also noted, which she attributes to her Parkinson's disease. Physical therapy is being
attended twice a week, and home exercises are performed, but without noticeable improvement. No recent falls have been reported. Vivid dreams occur but do not cause distress.
Assessment & Plan 1. Parkinson's disease: Chronic. - Increase carbidopa-levodopa to 1 tablet 4 times daily, with an additional dose at bedtime. - Prescribe magnesium glycinate 400 mg for cramping and sleep. - Consider melatonin if symptoms persist.
- Continue physical therapy twice a week and home exercises. - Potential increase of daytime dosage to 1.5 tablets if no improvement. 2. Ischemic stroke Patient was on Pradaxa for atrial fibrillation. We discussed her previous stroke and secondary
stroke prevention. Continue Pradaxa and 40 mg of atorvastatin at this time.'
She notes she had a horrible headache yesterday at the top and back of her head, with an aching sensation 10/10. She states she had a similar feeling once before and was hospitalized for hypertension. She had new-onset expressive aphasia. The
patient describes this as 'the words were in my head but I could not get them out,� which is what prompted her to come to the ED for an evaluation. In the ED, she was hypertensive to 180/100, pulse was 78 and she was satting 96% on room air.
Troponin was negative. CT of the head showed a new nonhemorrhagic left frontal lobe region infarct, CT angio showed redemonstration of complete occlusion of the majority of the right internal carotid artery with no new or worsening vascular
occlusion on, no aneurysm or dissection. NIHSS was 3. She is on anticoagulation and was not a candidate for IAT.
Currently, headache is much improved and 'close to being gone.' Currently 07/08. Speech and confusion today also improved. She still reports brain fog, minor confusion and word finding difficulty. Current NIHSS 0. Brain MRI pending.
Objective Data
Vital Signs
Temp Pulse Resp BP Pulse Ox
98.3 F 71 18 168/81 95
11/19/24 07:54 11/19/24 07:54 11/19/24 07:54 11/19/24 07:54 11/19/24 07:54
Lab Results
11/19/24 05:42
11/19/24 05:42
PT 14.5 Sec (11.4-14.6) 11/19/24 05:42
INR 1.09 11/19/24 05:42
APTT 41.6 Sec (23.4-35.0) H 11/18/24 19:20
Sodium 135 mmol/L (135-145) 11/19/24 05:42
Potassium 5.4 mmol/L (3.5-5.1) H 11/19/24 05:42
BUN 28 mg/dl (7-17) H 11/19/24 05:42
Glucose 121 mg/dl (70-99) H 11/19/24 05:42
Calcium 10.0 mg/dl (8.4-10.2) 11/19/24 05:42
LDL Cholesterol, Calc 82 mg/dl 11/19/24 05:42
Patient Allergies
adhesive Allergy (Verified 11/18/24 18:52)
Redness, rash
amiodarone Allergy (Verified 11/18/24 18:52)
tremors
diltiazem Allergy (Verified 11/18/24 18:52)
Rash
hydralazine (Hydralazine) Allergy (Verified 11/18/24 18:52)
RAMSEY, Fatigue, Dizziness
Iodinated Contrast Media (Iodinated Contrast Media - IV Dye) Allergy (Verified 11/18/24 18:52)
Rash and Warmth
iodine (Iodine) Allergy (Verified 11/18/24 18:52)
rash with ivp dye
omeprazole Allergy (Verified 11/18/24 18:52)
Nausea
spironolactone Allergy (Verified 11/18/24 18:52)
kidney failure- Hypercalcemia
CVA Assessment
NIH Stroke Score
Level of Consciousness: 0 - Alert
LOC Questions: 0-Answers both correctly
LOC Commands: 0-Performs both correctly
Best Horizontal Gaze: 0-Normal
Visual Marques: 0=Normal, no visual loss
Facial Palsy: 0=Normal, symmetrical
Motor - Right Arm: 0=No drift 10 seconds
Motor - Left Arm: 0=No drift 10 seconds
Motor - Right Le-No drift 5 seconds
Motor - Left Le-No drift 5 seconds
Limb Ataxia: 0-Absent
Sensation: 0-Normal
Best Language: 0-No aphasia
Dysarthria: 0-Normal
Extinction and Inattention: 0-No abnormality
NIH Total Score:: 0
Tenecteplase Contraindications
Inclusion and Exclusion criteria reviewed: Yes
Reasons for NON-Tx with Thrombolytics ABSOLUTE Exclusions: Patient taking oral anticoagulant and last dose within 48 hours
IAT Contraindications: >6 hrs from onset/last seen normal and NIHSS < 6
Modified Cruz Score (MRS)
-
Modified Boone Scale (mRS): Slight disability. Able to look after own affairs.
Score: 2
Review of Systems
-
History Source: Patient
EENT: Negative Blurry Vision, Decreased Vision or Swallowing Difficulty
Respiratory: Negative Cough or Trouble Breathing
Cardiac: Negative Chest Pain or Palpitations
Abdomen/GI: Negative Nausea
Genitourinary: Negative Incontinence
Neuro: Headache and Speech Problem; Negative Dizzy, Weakness, Numbness, Ataxia or Tremors
Physical Exam
-
General: No Apparent Distress, Comfortable, Appears Stated Age and Other (no masked facies)
HEENT: Normocephalic and Atraumatic
Neck: Full Range of Motion
Respiratory: No Dyspnea
Cardiac: No JVD
GI: Non-distended
Skin: Unremarkable
Extremities: No Clubbing, No Cyanosis, No Edema and Other (boot to RLE)
Psych: Confused
Extended Neurological Exam
Mood & Affect: Mood Unremarkable
Attention Span & Concentration: Awake, Alert, Interactive and No Difficulty with 2 Step Request
Memory: Unremarkable
Tremor: Distal, Amplitude (low-medium), Intermittent and At Rest (left hand)
Speech: Quantity Unremarkable and Other (word finding difficulties, hypophonic)
Cranial Nerve II: Left Eye: Other (pinpoint)
Cranial Nerve II: Right Eye: Other (pinpoint)
Cranial Nerves III, IV, : Extraocular Movement: Extraocular Movement Full in all Directions
Cranial Nerve VII: Facial Symmetry: Normal Facial Symmetry
Cranial Nerve VIII: Hearing: Unremarkable Hearing to Normal Conversational Volume
Muscle Strength, Overall: Full Throughout
Muscle Bulk & Tone: Bulk Unremarkable and Tone Unremarkable
Pronator Drift: No Drift in Upper Extremities and No Drift in Lower Extremities
Coordination: [id number] Testing Unremarkable and Reaches for Objects without Difficulty
Medications
-
Active Medications
Generic Name Dose Route Start Last Admin
Trade Name Freq PRN Reason Stop Dose Admin
Acetaminophen 650 mg 11/19/24 00:06
Acetaminophen 650 Mg Rectal Suppository RECTAL 12/17/24 00:05
Q4HPRN PRN
MCGHEE, mild pain, or temp >100.4F
Acetaminophen 650 mg 11/19/24 00:06
Acetaminophen 325 Mg Tablet PO 12/17/24 00:05
Q4HPRN PRN
MCGHEE, mild pain, or temp >100.4F
Aspirin 81 mg 11/19/24 08:00
Aspirin 81 Mg Chewable Tablet PO 12/17/24 07:59
DAILY SOFIA
Atorvastatin Calcium 40 mg 11/19/24 22:00
Atorvastatin (Lipitor) 40 Mg Tablet PO 12/17/24 21:59
HS SOFIA
Bisacodyl 10 mg 11/19/24 00:06
Bisacodyl 10 Mg Rectal Suppository RECTAL 12/17/24 00:05
DAILY PRN
if MOM ineffective
Carbidopa/Levodopa 1.5 tablet 11/19/24 08:00
Carbidopa (25 Mg)/Levodopa (100 Mg) Regular Release Tablet PO 12/17/24 07:59
QID SOFIA
Clonidine HCl 0.1 mg 11/19/24 00:06
Clonidine 0.1 Mg Tablet PO 12/17/24 00:05
Q6HPRN PRN
sbp>160 or dbp>100
Cyclobenzaprine HCl 5 mg 11/19/24 00:06
Cyclobenzaprine 10 Mg Tablet PO
DAILYPRN PRN
muscle spasm
Dofetilide 250 mcg 11/19/24 08:00
Dofetilide 250 Mcg Capsule PO 12/17/24 07:59
BID SOFIA
Isosorbide Mononitrate 60 mg 11/19/24 08:00
Isosorbide Mononitrate 60 Mg Extended Release Tablet PO 12/17/24 07:59
DAILY SOFIA
Labetalol HCl 10 mg 11/19/24 00:06
Labetalol Hcl 5 Mg/1 Ml (20 Mg/4 Ml) Injection IV 12/17/24 00:05
Q6HPRN PRN
for SBP > 180
Levothyroxine Sodium 112 mcg 11/19/24 06:00 11/19/24 05:44
Levothyroxine 112 Mcg Tablet PO 12/17/24 05:59 112 mcg
DAILY @ 0600 SOFIA Administration
Magnesium Hydroxide 30 ml 11/19/24 00:06
Milk Of Magnesia 30 Ml Cup PO 12/17/24 00:05
[id number] PRN
if no BM x 3 days
Metoprolol Succinate 50 mg 11/19/24 22:00
Metoprolol 50 Mg Extended Release Tablet PO 12/17/24 21:59
HS SOFIA
Metoprolol Succinate 100 mg 11/19/24 08:00
Metoprolol 100 Mg Extended Release Tablet PO 12/17/24 07:59
DAILY SOFIA
Nifedipine 30 mg 11/19/24 18:00
Nifedipine 30 Mg Extended Release Tablet PO 12/17/24 17:59
QPM SOFIA
Pantoprazole Sodium 20 mg 11/19/24 08:00
Pantoprazole 20 Mg Delayed Release Tablet PO 12/17/24 07:59
BID SOFIA
Sertraline HCl 25 mg 11/19/24 08:00
Sertraline 25 Mg Tablet PO 12/17/24 07:59
DAILY SOFIA
Sodium Chloride 0 flush 11/18/24 23:00
Sodium Chloride 0.9% (Flush) Syringe IV 12/16/24 22:59
PER PROTOCOL SOFIA
Ursodiol 600 mg 11/19/24 08:00
Ursodiol 300 Mg Capsule PO 12/17/24 07:59
DAILY SOFIA
Ursodiol 300 mg 11/19/24 22:00
Ursodiol 300 Mg Capsule PO 12/17/24 21:59
HS SOFIA
Valsartan 80 mg 11/19/24 08:00
Valsartan 80 Mg Tablet PO 12/17/24 07:59
DAILY SOFIA
Home Medications
�Medication �Instructions �Recorded
ursodiol 300 mg capsule 300 mg PO HS Urinary issue 01/23/17
ursodiol 300 mg capsule 600 mg PO DAILY Urinary issue 01/23/17
dabigatran etexilate 150 mg 150 mg PO BID #60 caps 08/04/21
capsule (Pradaxa)
isosorbide mononitrate 60 mg 60 mg PO DAILY CHEST PAIN 05/18/22
tablet,extended release 24 hr
metoprolol succinate 100 mg 100 mg PO DAILY #30 tabs 05/28/22
tablet,extended release 24 hr
cholecalciferol (vitamin D3) 50 50 mcg PO DAILY Supplement 06/21/23
mcg (2,000 unit) capsule (Vitamin
D3)
levothyroxine 112 mcg tablet 112 mcg PO DAILY Thyroid 06/21/23
propranolol 20 mg tablet 20 mg PO Q4HPRN PRN a fib/HR>100 06/23/23
atorvastatin 40 mg tablet 40 mg PO HS High Cholesterol 06/29/23
calcium carbonate 500 mg PO DAILY Supplement 12/07/23
pantoprazole 20 mg tablet,delayed 20 mg PO BID Gastrointestinal Issue 02/09/24
release (Protonix)
dofetilide 250 mcg capsule 250 mcg PO BID Arrhythmia 02/16/24
furosemide 20 mg tablet 20 mg PO DAILYPRN PRN edema 06/29/24
guar gum 1 tbsp PO DAILY Constipation 06/29/24
metoprolol succinate 50 mg 50 mg PO HS Blood Pressure 06/29/24
tablet,extended release 24 hr
sertraline 25 mg tablet (Zoloft) 25 mg PO DAILY Depression 06/29/24
valsartan 80 mg tablet 80 mg PO DAILY Blood Pressure 06/29/24
carbidopa 25 mg-levodopa 100 mg 1.5 tab PO QID 11/08/24
tablet (Sinemet)
clonidine HCl 0.1 mg tablet 0.1 mg PO Q6HPRN PRN sbp>160 or 11/11/24
dbp>100 #0 tabs
magnesium oxide 500 mg PO HS #0 tabs 11/11/24
acetaminophen 325 mg tablet 650 mg PO Q4HPRN PRN mild 11/18/24
pain/MCGHEE/temp> 100F
acetaminophen 500 mg tablet 1,000 mg PO Q8H 11/18/24
(Tylenol Extra Strength)
bisacodyl 10 mg rectal suppository 10 mg NJ DAILY PRN if MOM 11/18/24
(Dulcolax (bisacodyl)) ineffective
cyclobenzaprine 5 mg tablet 5 mg PO DAILYPRN PRN muscle spasm 11/18/24
lidocaine 4 % topical patch 1 patch topical DAILY apply to B/L 11/18/24
shoulders
magnesium hydroxide 400 mg/5 mL 30 ml PO [id number] PRN if no BM x 3 11/18/24
oral suspension (Milk of Magnesia) days
nifedipine 30 mg tablet,extended 30 mg PO QPM 11/18/24
release 24 hr
sodium phosphates 19 gram-7 197 ml NJ DAILYPRN PRN if dulcolax 11/18/24
gram/197 mL enema (Fleet Enema supp ineffective
Extra)
Past History
Past History
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
ED Past Surgical History: Cardiac (Pacemaker, PTCI) and Other (Mastectomy L, renal artery PTCI)
Family/Social History
Tobacco: Former smoker
Alcohol: Occasional
Drug: None
Personal: Other
Living: alone
Employment: Retired
Family History: Other

Documented by User: Ivan Tang MD 11/19/24 14:19
CVA Assessment
NIH Stroke Score
NIH Total Score:: 0
Modified Boone Score (MRS)
-
Score: 2
[2024-11-19] MEDS: PROTONIX 20 MG PO ×2 (08:05→20:06)
[2024-11-19] MEDS: DIOVAN 80 MG PO (08:05)
[2024-11-19] MEDS: LOW STRENGTH ASPIRIN 81 MG PO (08:06)
[2024-11-19] MEDS: IMDUR (EXTENDED RELEASE) 60 MG PO (08:06)
[2024-11-19] MEDS: TOPROL XL 100 MG PO (08:06)
[2024-11-19] MEDS: ZOLOFT 25 MG PO (08:06)
[2024-11-19] MEDS: ACTIGALL 600 MG PO (08:06)
[2024-11-19] MEDS: TIKOSYN 250 MCG PO ×2 (08:06→20:06)
[2024-11-19] MEDS: FLUSH (NSS) 1 FLUSH IV (08:07)
--- NOTE | 2024-11-19 10:56 | W.PN.HOSP.TC ---
Today's Communication/Plan
-
Follow-up echocardiogram
Brain MRI
Neurology consult
PT/OT
Assessment / Plan
Assessment / Plan
Gen-AAOx3, NAD
HEENT-NC, AT, anicteric, clear oral mm
Neck-supple
CV-reg, no M, +S1/S2
Lungs-clear B/L
Abd-soft, NT, ND
Ext-no edema
Musculoskeletal-no cyanosis, clubbing
Skin-warm and dry
Neuro-grossly non-focal
Psych-calm, cooperative
Left frontal lobe stroke -presumably acute based on symptomatology. CT head and CTA noted. Speech has improved.
Brain MRI pending, echocardiogram completed, report pending.
Neurology consulted. Discussed with Dr. Tang, continue aspirin and Plavix today, anticipate switching back to Pradaxa tomorrow.
PT/OT.
Persistent atrial fibrillation -on chronic Pradaxa, currently on hold for 24 hours as per neurology. She believes she has been compliant with it. Known to Dr. Metcalf.
Essential hypertension -permissive hypertension per neurology.
Parkinson's disease -on Sinemet.
Sick sinus syndrome -has a pacemaker in place.
CAD -stable.
Hypothyroidism -continue levothyroxine.
Carotid stenosis -s/p bilateral CEA.
Hx of left breast cancer -s/p mastectomy.
Full code
Anticipated Discharge: 24 - 48 hours
Subjective/Interval History
-
Date of Service: November 19, 2024
Patient seen and examined. Speech is improved although she is complaining of mild confusion. Denies dysphagia.
Objective Data
-
Labs:
Laboratory Results
11/19/24
05:42
WBC 7.0
Hgb 12.5
Hct 37.3
Plt Count 250
PT 14.5
INR 1.09
Sodium 135
Potassium 5.4 H
Chloride 102
Carbon Dioxide 23
BUN 28 H
Creatinine 0.9
Glucose 121 H
Calcium 10.0
Total Bilirubin 0.6
AST 23
ALT < 10
Alkaline Phosphatase 106
Vital Signs:
Vital Signs
Temp Pulse Resp BP Pulse Ox
98.3 F 71 18 168/81 95
11/19/24 07:54 11/19/24 07:54 11/19/24 07:54 11/19/24 07:54 11/19/24 07:54
I&O
11/18/24 11/19/24 11/20/24
06:59 06:59 06:59
Intake Total 120 / 120
Balance 120 / 120
Review of Systems
-
History Source: Patient
All other systems: Reviewed and negative
--- NOTE | 2024-11-19 11:40 | PTOTSP ---
Speech Language Pathology
Pt seen for language evaluation via the Quick Aphasia Battery (QAB), form 1. Pt with an overall score of 8.92, indicative of overall score WNL. Pt scored 4.58 on sentence comprehension subtest. Suspect deficits related to cognitive deficits, not
aphasia.
Pt also seen for clinical bedside swallow evaluation. P.O. trials of puree, regular solids, and thin liquids provided. Adequate mastication, bolus formation, and A-P transit noted with no oral residue. Cough noted with liquid wash while chewing
regular solids. Pt reported this has been happening with P.O. intake for a few weeks.
Recommend:
(1) VSE to rule out pharyngeal dysphagia given hx of Parkinson's and acute/subacute CVA
(2) Continue regular solids/thin liquids for now
(3) Aspiration precautions: sit upright, clear oral cavity of solids prior to taking drink
(4) Meds as tolerated
(5) ORE DRESSING ENGINEER to continue to follow
[2024-11-19] MEDS: PLAVIX 75 MG PO (13:14)
--- NOTE | 2024-11-19 14:05 | PTOTSP ---
Speech Language Pathology
VIDEOFLUOROSCOPIC SWALLOWING EXAMINATION (VSE) completed. Pt with oropharyngeal swallow WNL. No significant pharyngeal residue or any penetration/aspiration noted during study.
Recommend:
(1) Continue regular solids/thin liquids
(2) General aspiration precautions
(3) Meds as tolerated
(4) PROTECTION ENGINEER to continue to follow for cognitive tx only
[2024-11-19 15:40] LABS: Free T4 2.29 ng/dl (0.78-2.19)
--- NOTE | 2024-11-19 16:30 | CM ---
Alert awake oriented patient who lives alone in a 2 story home with 6 steps to enter and livs on first floor. She is independent in activates of daily living.She does not drive .She was in [facility] prior to admission . She will need an auth for
[facility] .
Had [facility] in past . [facility] hx
Pharmacy [facility] [address]
PCP Dr Smith
PLAN Return to [facility] after auth
[2024-11-19] MEDS: LOKELMA 10 GRAM PO (18:35)
[2024-11-19] MEDS: PROCARDIA XL (EXTENDED RELEASE) 30 MG PO (18:37)
[2024-11-19] MEDS: ACTIGALL 300 MG PO (21:20)
[2024-11-19] MEDS: LIPITOR 80 MG PO (21:20)
[2024-11-19] MEDS: TOPROL XL 50 MG PO (21:23)
[2024-11-20] VITALS (8 sets, daily range): BP systolic 103–166; BP diastolic 16–80; PULSE 71–73; BMI 25.2
[2024-11-20] MEDS: SYNTHROID 100 MCG PO (05:45)
[2024-11-20] MEDS: LIDOCAINE 4% PATCH 2 PATCH TOPICAL (08:12)
[2024-11-20] MEDS: ACTIGALL 600 MG PO (08:13)
[2024-11-20] MEDS: TIKOSYN 250 MCG PO ×2 (08:13→21:00)
[2024-11-20] MEDS: PROTONIX 20 MG PO ×2 (08:13→21:23)
[2024-11-20] MEDS: TOPROL XL 100 MG PO (08:13)
[2024-11-20] MEDS: FLUSH (NSS) 1 FLUSH IV (08:14)
[2024-11-20] MEDS: ZOLOFT 25 MG PO (08:14)
[2024-11-20] MEDS: LOW STRENGTH ASPIRIN 81 MG PO (08:14)
[2024-11-20] MEDS: IMDUR (EXTENDED RELEASE) 60 MG PO (08:14)
[2024-11-20] MEDS: DIOVAN 80 MG PO (08:14)
[2024-11-20] MEDS: SINEMET 25-100 1.5 TABLET PO ×4 (08:14→21:21)
[2024-11-20 08:17] LABS: Blood Urea Nitrogen 34 mg/dl (7-17); Calcium 9.4 mg/dl (8.4-10.2); Carbon Dioxide 23 mmol/L (22-30); Chloride 101 mmol/L (98-107); Estimated Creatinine Clearance 25 ml/min; Glucose 87 mg/dl (70-99); Potassium 4.4 mmol/L (3.5-5.1); Sodium 131 mmol/L (135-145)
--- NOTE | 2024-11-20 10:39 | CM ---
PT OT indicate SNF at [facility].
Pt will need auth .
Spoke with Deanna farley they have a bed hold on [facility] .
Referral placed for [facility].
Spoke with Lulu [facility] rep Npi provided.
[facility]
Dr Renaldo Snell
PLAN [facility] after auth and medically ready
[2024-11-20] MEDS: PRADAXA 75 MG PO ×2 (11:09→21:00)
[2024-11-20 11:30] LABS: Vitamin D, 25-OH*** 40.3 ng/mL (30-80)
[2024-11-20 12:20] LABS: Folate 3.3 ng/ml (2.76-20); Vitamin B12 278 pg/ml (239-931)
--- NOTE | 2024-11-20 13:31 | W.PN.HOSP.TC ---
Today's Communication/Plan
-
Stop valsartan
Resume Pradaxa at lower dose
Labs in the morning
Continue PT/OT
Assessment / Plan
Assessment / Plan
Gen-AAOx3, NAD
HEENT-NC, AT, anicteric, clear oral mm
Neck-supple
CV-reg, no M, +S1/S2
Lungs-clear B/L
Abd-soft, NT, ND
Ext-no edema
Musculoskeletal-no cyanosis, clubbing
Skin-warm and dry
Neuro-grossly non-focal
Psych-calm, cooperative
Transient aphasia -brain MRI has ruled out stroke. However, it does show advanced chronic microvascular white matter ischemic disease. Perhaps we are seeing signs of cognitive impairment and dementia manifesting as episodes of aphasia. Other
possibility would be hypertensive encephalopathy. Discussed with neurology service.
Persistent atrial fibrillation -we will resume Pradaxa today, discussed with neurology service. Will reduce dose based on renal insufficiency. Stop aspirin.
Essential hypertension with hypertensive urgency -blood pressure improved compared to admission. Hypertensive urgency present on admission. Urgency resolved.
COCO -possibly related to contrast-induced nephropathy. Creatinine 0.9 on admission, 1.3 today. Stop valsartan. Recheck labs in the morning.
Hyperkalemia -improved. Received a dose of Lokelma yesterday.
Hyponatremia -131.
Parkinson's disease -on Sinemet.
Recent right ankle sprain -x-ray on November 08 negative for fracture. She has cam boot in place. Follow-up with orthopedics.
Sick sinus syndrome -has a pacemaker in place.
CAD -stable.
Hypothyroidism -continue levothyroxine.
Carotid stenosis -s/p bilateral CEA.
Hx of left breast cancer -s/p mastectomy.
Full code
Dispo - anticipate discharge to SNF when medically stable, possibly tomorrow if renal function improved. Discussed with case management.
Left a voicemail for patient's daughter Deanna to call me back.
Anticipated Discharge: Within 24 hours
Subjective/Interval History
-
Date of Service: November 20, 2024
Patient seen and examined. No complaints.
Objective Data
-
Labs:
Laboratory Results
11/20/24
07:21
Sodium 131 L
Potassium 4.4
Chloride 101
Carbon Dioxide 23
BUN 34 H
Creatinine 1.3 H
Glucose 87
Calcium 9.4
Vital Signs:
Vital Signs
Temp Pulse Resp BP Pulse Ox
98.3 F 71 18 154/54 96
11/20/24 11:54 11/20/24 11:54 11/20/24 11:54 11/20/24 11:54 11/20/24 11:54
I&O
11/19/24 11/20/24 11/21/24
06:59 06:59 06:59
Intake Total 120 / 120
Balance 120 / 120
Review of Systems
-
History Source: Patient
All other systems: Reviewed and negative
--- NOTE | 2024-11-20 13:40 | W.PN.NEURO.1 ---
Today's Communication / Plan
-
resume pradaxa
advanced atorvastatin from 40 mg to 80 mg
Patient does have evidence of orthostasis at times, will need to have follow-up of this as outpatient. Provide abdominal binder
-continue Carbidopa-Levodopa for presumed Parkinson's disease
Patient has numerous abnormal antibodies as outpatient and will need follow-up of these as an outpatient
Neuro Assessment/Plan
Assessment
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
hypertension, hypothyroid, depression presented to the [facility] 11/[facility]2024 with acute expressive aphasia that started around 5:30 PM found to have a left frontal lobe CVA on CT scan.
Head CT: Nonhemorrhagic left frontal lobe region infarct, possibly acute/subacute.
Head and neck CTA: Redemonstration of complete occlusion of the majority of the right internal carotid artery. No new or worsening vascular occlusion. No aneurysm or dissection.
TTE:
Left ventricular ejection fraction is >75%. Normal regional wall motion.
Normal right ventricular size and function. Pacer wire seen in right ventricle.
Moderately to severely dilated left atrium. Moderately dilated right atrium.
Mild to moderate aortic stenosis; peak/mean gradients 15/9 mmHg, calculated LINDY
is 1.2 cm2.
Labs: ESR 45, Cholesterol 146, LDL 82
Brain MRI without gadolinium 11/20/2024: No acute intracranial abnormality; specifically, no acute infarct. Advanced chronic microvascular white matter ischemic disease. 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
Brain MRI without shun (06/27/2024)�punctuate right frontal/frontoparietal lobes subacute infarcts, severe bihemispheric leukoaraiosis
CTA head/neck(11/06/2023)-Right proximal internal carotid artery occlusion near its origin to the level of the right MCA/no dissection.
Brain MRI (08/03/2021):
1. Multiple small acute to subacute nonhemorrhagic infarcts at the right frontoparietal junction.
2. A few scattered chronic-appearing punctate foci of microhemorrhage in the bilateral cerebral hemispheres raise suspicion for cerebral amyloid angiopathy, or less likely hypertensive angiopathy.
3. Moderate age-related parenchymal atrophy.
4. Moderate to severe chronic microangiopathic ischemia.
In summary, symptoms most likely due to hypertensive encephalopathy
Plan
resume pradaxa
advanced atorvastatin from 40 mg to 80 mg
Patient does have evidence of orthostasis at times, will need to have follow-up of this as outpatient. Provide abdominal binder
-continue Carbidopa-Levodopa for presumed Parkinson's disease
Patient has numerous abnormal antibodies as outpatient and will need follow-up of these as an outpatient
-follow up with outpatient Neurologist Dr. Cervantes
Subjective/Objective
Subjective Data
Date of Service: November 20, 2024
Objective Data
Vital Signs
Temp Pulse Resp BP Pulse Ox
36.8 C 71 18 154/54 96
11/20/24 11:54 11/20/24 11:54 11/20/24 11:54 11/20/24 11:54 11/20/24 11:54
Lab Results
11/19/24 05:42
11/20/24 07:21
PT 14.5 Sec (11.4-14.6) 11/19/24 05:42
INR 1.09 11/19/24 05:42
APTT 41.6 Sec (23.4-35.0) H 11/18/24 19:20
Sodium 131 mmol/L (135-145) L 11/20/24 07:21
Potassium 4.4 mmol/L (3.5-5.1) 11/20/24 07:21
BUN 34 mg/dl (7-17) H 11/20/24 07:21
Glucose 87 mg/dl (70-99) 11/20/24 07:21
Calcium 9.4 mg/dl (8.4-10.2) 11/20/24 07:21
LDL Cholesterol, Calc 82 mg/dl 11/19/24 05:42
Vitamin B12 278 pg/ml (239-931) 11/20/24 07:21
Patient Allergies
adhesive Allergy (Verified 11/18/24 18:52)
Redness, rash
amiodarone Allergy (Verified 11/18/24 18:52)
tremors
diltiazem Allergy (Verified 11/18/24 18:52)
Rash
hydralazine (Hydralazine) Allergy (Verified 11/18/24 18:52)
RAMSEY, Fatigue, Dizziness
Iodinated Contrast Media (Iodinated Contrast Media - IV Dye) Allergy (Verified 11/18/24 18:52)
Rash and Warmth
iodine (Iodine) Allergy (Verified 11/18/24 18:52)
rash with ivp dye
omeprazole Allergy (Verified 11/18/24 18:52)
Nausea
spironolactone Allergy (Verified 11/18/24 18:52)
kidney failure- Hypercalcemia
Data Reviewed
-
MRI Head: Report Reviewed
Labs: Report Reviewed
Reviewed with: Physician
Old Records: Summarized
[2024-11-20] MEDS: FOLVITE 1 MG PO (13:59)
[2024-11-20] MEDS: VITAMIN B-12 1000 MCG PO (13:59)
--- NOTE | 2024-11-20 16:05 | PTCARENOTE ---
Pt AAO x3, ANDERSON; OOB to BR with assist x1/walker, wears Rt LE immobilizer. NIHSS 0. VSS. Telemetry: A paced rhythm. Abd binder placed as ordered. On room air- pulse ox 99%, no SOB noted. Abd large, soft, paulina PO; no dysphagia noted. Voids in BR
without difficulty. Resting in bed at present, no c/o. Will continue to monitor.
[2024-11-20] MEDS: PROCARDIA XL (EXTENDED RELEASE) 30 MG PO (18:06)
[2024-11-20] MEDS: LIPITOR 80 MG PO (21:22)
[2024-11-20] MEDS: TOPROL XL 50 MG PO (21:22)
[2024-11-20] MEDS: ACTIGALL 300 MG PO (21:24)
[2024-11-21 03:30] VITALS: BP 173/68
[2024-11-21] MEDS: SYNTHROID 100 MCG PO (03:48)
[2024-11-21] MEDS: CATAPRES 0.1 MG PO (03:48)
[2024-11-21 05:18] VITALS: BMI 25.0
[2024-11-21 06:55] LABS: Blood Urea Nitrogen 32 mg/dl (7-17); Calcium 9.5 mg/dl (8.4-10.2); Carbon Dioxide 29 mmol/L (22-30); Chloride 103 mmol/L (98-107); Estimated Creatinine Clearance 26 ml/min; Glucose 90 mg/dl (70-99); Potassium 4.7 mmol/L (3.5-5.1); Sodium 137 mmol/L (135-145); eGFR 49.86
[2024-11-21 07:00] VITALS: BP 141/57
[2024-11-21] MEDS: FOLVITE 1 MG PO (08:43)
[2024-11-21] MEDS: TOPROL XL 100 MG PO (08:43)
[2024-11-21] MEDS: PRADAXA 75 MG PO ×2 (08:43→11:20)
[2024-11-21] MEDS: ACTIGALL 600 MG PO (08:44)
[2024-11-21] MEDS: SINEMET 25-100 1.5 TABLET PO ×2 (08:44→13:12)
[2024-11-21] MEDS: IMDUR (EXTENDED RELEASE) 60 MG PO (08:44)
[2024-11-21] MEDS: TIKOSYN 250 MCG PO (08:44)
[2024-11-21] MEDS: ZOLOFT 25 MG PO (08:44)
[2024-11-21] MEDS: PROTONIX 20 MG PO (08:44)
[2024-11-21] MEDS: VITAMIN B-12 1000 MCG PO (08:44)
[2024-11-21] MEDS: LIDOCAINE 4% PATCH 2 PATCH TOPICAL (08:47)
--- NOTE | 2024-11-21 09:25 | CM ---
Addendum entered by Kaylyn Rush RN 11/21/24 13:31:
reference # [id number] for [facility].
Pt needs ambulance medical nec completed [facility] called back for auth for ambulance Auth number to follow
Addendum entered by Kaylyn Rush RN 11/21/24 12:27:
MD notified pt ready for dc to SNF.
[facility] said bed available today after auth .
Spoke with Deanna farley sge is in agreement with SNF today .Reviewed IM with dgt Emailed IMM to [email or web address]
Called [facility] spoke with Susanne Authorization received for 5 skilled days 11/21/24 to 11/25/24 NRD 11/25/24 call [phone]. [facility] aware.
Deanna farley requested wc van. Information for transport given to dgt . Transport form completed.
[facility]
report [phone]
fax [phone]
PLAN To [facility]
Original Note:
As per dgt pt has a bed hold at [facility] .
Spoke with [facility] rep Npi provided.
Requested PT eval.
[facility]
Dr Renaldo Snell
PLAN [facility] after auth and medically ready
--- NOTE | 2024-11-21 10:43 | W.PN.HOSP.TC ---
Today's Communication/Plan
-
Increase dose of Pradaxa
Discharge planning
Assessment / Plan
Assessment / Plan
Gen-AAOx3, NAD
HEENT-NC, AT, anicteric, clear oral mm
Neck-supple
CV-reg, no M, +S1/S2
Lungs-clear B/L
Abd-soft, NT, ND
Ext-no edema
Musculoskeletal-no cyanosis, clubbing
Skin-warm and dry
Neuro-grossly non-focal
Psych-calm, cooperative
Hypertensive encephalopathy -presentation with transient aphasia. Stroke ruled out on brain MRI. Encephalopathy resolved. Fields is to control blood pressure better, discussed with patient. She is known to Dr. Morejon of nephrology, follow-up as
outpatient. I sent him a [place] text to let him know.
Persistent atrial fibrillation -Pradaxa resumed, dose increased to home dose given improvement in renal function.
Essential hypertension with hypertensive urgency -blood pressure improved compared to admission. Hypertensive urgency present on admission. Urgency resolved.
COCO -possibly related to contrast-induced nephropathy. Creatinine improved to 1.1 today. She follows with Dr. Morejon of nephrology.
Hyperkalemia -resolved.
Hyponatremia - resolved.
Parkinson's disease -on Sinemet.
Recent right ankle sprain -x-ray on November 08 negative for fracture. She has cam boot in place. Follow-up with orthopedics.
Sick sinus syndrome -has a pacemaker in place.
CAD -stable.
Hypothyroidism -continue levothyroxine, dose reduced slightly given elevated free T4 of 2.29, suppressed TSH of 0.30. Repeat TSH in 4 weeks as outpatient.
Carotid stenosis -s/p bilateral CEA.
Hx of left breast cancer -s/p mastectomy.
Full code
Dispo - anticipate discharge to SNF when medically stable, possibly tomorrow if renal function improved. Discussed with case management.
Left a voicemail for patient's daughter Deanna to call me back.
Anticipated Discharge: Today
Subjective/Interval History
-
Date of Service: November 21, 2024
Patient seen and examined, no complaints.
Objective Data
-
Labs:
Laboratory Results
11/21/24
05:52
Sodium 137
Potassium 4.7
Chloride 103
Carbon Dioxide 29
BUN 32 H
Creatinine 1.1 H
Glucose 90
Calcium 9.5
Vital Signs:
Vital Signs
Temp Pulse Resp BP Pulse Ox
98 F 71 18 141/57 94
11/21/24 07:00 11/21/24 08:43 11/21/24 07:00 11/21/24 08:43 11/21/24 07:00
I&O
11/20/24 11/21/24 11/22/24
06:59 06:59 06:59
Intake Total 720 / 720
Balance 720 / 720
Review of Systems
-
History Source: Patient
All other systems: Reviewed and negative
[2024-11-21 11:00] VITALS: BP 105/47; BP 122/49; BP 133/55; PULSE 71; PULSE 73
[2024-11-21 11:11] VITALS: BMI 25.0
--- NOTE | 2024-11-21 12:42 | W.DS.TRANS ---
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
-
Discharge Instructions:
Sleep Apnea Risk Low
Discharge Diagnosis/Procedures Hypertensive encephalopathy, acute kidney injury
, hyperkalemia, hyponatremia
Diet Low Sodium,Low Fat,Low Cholesterol
Activity As tolerated
Driving Restrictions No driving
Bathing Restrictions None
Blood Work TSH in 4 weeks
Instructions:
Stand-Alone Forms:
Changes to Home Medications: Yes
Discharge Medications:
DC Medications w/original date entered in [employer]
ursodiol 300 mg capsule 300 mg PO HS Urinary issue 01/23/17
ursodiol 300 mg capsule 600 mg PO DAILY Urinary issue 01/23/17
dabigatran etexilate 150 mg capsule (Pradaxa) 150 mg PO BID #60 caps 08/04/21
isosorbide mononitrate 60 mg tablet,extended release 24 hr 60 mg PO DAILY CHEST PAIN 05/18/22
metoprolol succinate 100 mg tablet,extended release 24 hr 100 mg PO DAILY #30 tabs 05/28/22
cholecalciferol (vitamin D3) 50 mcg (2,000 unit) capsule (Vitamin D3) 50 mcg PO DAILY Supplement 06/21/23
propranolol 20 mg tablet 20 mg PO Q4HPRN PRN a fib/HR>100 06/23/23
calcium carbonate 500 mg PO DAILY Supplement 12/07/23
pantoprazole 20 mg tablet,delayed release (Protonix) 20 mg PO BID Gastrointestinal Issue 02/09/24
dofetilide 250 mcg capsule 250 mcg PO BID Arrhythmia 02/16/24
furosemide 20 mg tablet 20 mg PO DAILYPRN PRN edema 06/29/24
metoprolol succinate 50 mg tablet,extended release 24 hr 50 mg PO HS Blood Pressure 06/29/24
sertraline 25 mg tablet (Zoloft) 25 mg PO DAILY Depression 06/29/24
valsartan 80 mg tablet 80 mg PO DAILY Blood Pressure 06/29/24
carbidopa 25 mg-levodopa 100 mg tablet (Sinemet) 1.5 tab PO QID Neurological Condition 11/08/24
clonidine HCl 0.1 mg tablet 0.1 mg PO Q6HPRN PRN sbp>160 or dbp>100 #0 tabs 11/11/24
magnesium oxide 500 mg PO HS #0 tabs 11/11/24
acetaminophen 325 mg tablet 650 mg PO Q4HPRN PRN mild pain/MCGHEE/temp> 100F 11/18/24
bisacodyl 10 mg rectal suppository (Dulcolax (bisacodyl)) 10 mg IA DAILY PRN if MOM ineffective 11/18/24
cyclobenzaprine 5 mg tablet 5 mg PO DAILYPRN PRN muscle spasm 11/18/24
lidocaine 4 % topical patch 1 patch topical DAILY apply to B/L shoulders 11/18/24
magnesium hydroxide 400 mg/5 mL oral suspension (Milk of Magnesia) 30 ml PO [id number] PRN if no BM x 3 days 11/18/24
nifedipine 30 mg tablet,extended release 24 hr 30 mg PO QPM Blood Pressure 11/18/24
sodium phosphates 19 gram-7 gram/197 mL enema (Fleet Enema Extra) 197 ml IA DAILYPRN PRN if dulcolax supp ineffective 11/18/24
atorvastatin 80 mg tablet 80 mg PO HS #0 tabs 11/21/24
cyanocobalamin (vitamin B-12) 1,000 mcg tablet (Vitamin B-12) 1,000 mcg PO DAILY #0 tabs 11/21/24
folic acid 1 mg tablet 1 mg PO DAILY #0 tabs 11/21/24
levothyroxine 100 mcg tablet 100 mcg PO DAILY @ 0600 #0 tabs 11/21/24
Home Medication Changes
Levothyroxine dose reduced
Atorvastatin dose increased
Pending Results: No
--- NOTE | 2024-11-21 13:27 | PTCARENOTE ---
report given to nurse Estrada
--- NOTE | 2024-11-21 14:01 | CM ---
Medical nec form completed
ALEJANDRO Parker called back spoke with Jeannette for auth for ambulance Auth number [id number] for Acute care
notified pt ready for dc to SNF.
[facility] said bed available today after auth .
Spoke with Deanna farley she is in agreement with SNF today .Reviewed IM with dgt Emailed IMM to [email or web address]
Liliam Parker [phone] spoke with Susanne Authorization received for 5 skilled days reference # [id number] for [facility] from 11/21/24 to 11/25/24 NRD 11/25/24 call [phone]. [facility] aware.
[facility]
report [phone]
fax [phone]
PLAN To [facility]
As per dgt pt has a bed hold at [facility] .
Spoke with [facility] rep Npi provided.
Requested PT eval.
[facility]
Dr Renaldo Snell
PLAN [facility] after auth and medically ready
[2024-11-21 14:34] VITALS: BP 156/57
== END 2024-11-21 15:41 | DRG 78 ==
LOC: 4 EAST ACU 22:39
PROVIDERS: ADMITTING PHYSICIAN Internal Medicine; ATTENDING PHYSICIAN Hospitalist; CONSULT PHYSICIAN Psychiatry & Neurology Neurology; EMERGENCY PHYSICIAN Emergency Medicine; FAMILY PHYSICIAN Family Medicine
DX: I67.4 Hypertensive encephalopathy (principal); E87.1 Hypo-osmolality and hyponatremia; I48.21 Permanent atrial fibrillation; N17.9 Acute kidney failure, unspecified; I10 Essential (primary) hypertension; Z87.891 Personal history of nicotine dependence; Z95.0 Presence of cardiac pacemaker; G20.A1 Parkinson's disease without dyskinesia, without mention of fluctuations; I65.23 Occlusion and stenosis of bilateral carotid arteries; G21.4 Vascular parkinsonism; Z79.01 Long term (current) use of anticoagulants; I49.5 Sick sinus syndrome; I25.10 Atherosclerotic heart disease of native coronary artery without angina pectoris; E03.9 Hypothyroidism, unspecified; I65.29 Occlusion and stenosis of unspecified carotid artery; I16.0 Hypertensive urgency; E87.5 Hyperkalemia; Z60.2 Problems related to living alone
CPT/HCPCS: 70450; 70496; 70498; 70551; 74230; 80048; 80053; 80061; 81003; 81015; 82306; 82607; 82746; 82962; 84439; 84443; 84484; 85025; 85027; 85610; 85652; 85730; 87086; 92507; 92523; 92610; 92611; 93005; 93306; 96374; 96375; 97163; 97166; 97530; 97535; 99291; Q9950; Q9967

== ENCOUNTER → 2024-11-25 11:14 | Outpatient (REF) | payer OTHER, SELFPAY ==
[2024-11-25 12:22] LABS: Hematocrit 34.8 % (37.0-47.0); Hemoglobin 11.1 g/dL (12.0-16.0); Mean Corp Hgb Conc. 31.9 g/dL (33.0-37.0); Mean Corpuscular Hgb 30.5 pg (27.0-31.0); Mean Corpuscular Volume 95.6 fL (81.0-99.0); Mean Platelet Volume 11.3 fL (7.4-10.4); Platelet Count 231 10^3/uL (130-400); Red Blood Cell Count 3.64 10^6/uL (4.20-5.40); Red Cell Dist. Width 13.5 % (11.5-14.5)
[2024-11-25 13:48] LABS: Blood Urea Nitrogen 23 mg/dl (7-17); Calcium 9.2 mg/dl (8.4-10.2); Carbon Dioxide 28 mmol/L (22-30); Chloride 104 mmol/L (98-107); Glucose 87 mg/dl (70-99); Potassium 4.8 mmol/L (3.5-5.1); Sodium 140 mmol/L (135-145); eGFR > 60.00
== END ==
LOC: OLABP 11:14
PROVIDERS: ATTENDING PHYSICIAN Family Medicine
DX: G20.C Parkinsonism, unspecified (principal); I48.0 Paroxysmal atrial fibrillation; E03.9 Hypothyroidism, unspecified; I25.10 Atherosclerotic heart disease of native coronary artery without angina pectoris; I73.9 Peripheral vascular disease, unspecified; I49.5 Sick sinus syndrome; K21.9 Gastro-esophageal reflux disease without esophagitis; S93.409D Sprain of unspecified ligament of unspecified ankle, subsequent encounter; Z95.0 Presence of cardiac pacemaker
CPT/HCPCS: 36415; 80048; 85027

== ENCOUNTER → 2024-12-02 10:48 | Outpatient (REF) | payer OTHER, SELFPAY ==
[2024-12-02 11:28] LABS: Hematocrit 35.4 % (37.0-47.0); Hemoglobin 11.7 g/dL (12.0-16.0); Mean Corp Hgb Conc. 33.1 g/dL (33.0-37.0); Mean Corpuscular Volume 93.7 fL (81.0-99.0); Nucleated Red Blood Cells % 0 %; Platelet Count 224 10^3/uL (130-400); Red Cell Dist. Width 13.1 % (11.5-14.5)
== END ==
LOC: OLABP 10:48
PROVIDERS: ATTENDING PHYSICIAN Family Medicine
DX: G20.C Parkinsonism, unspecified (principal); I48.0 Paroxysmal atrial fibrillation; E03.9 Hypothyroidism, unspecified; I25.10 Atherosclerotic heart disease of native coronary artery without angina pectoris; I73.9 Peripheral vascular disease, unspecified; I49.5 Sick sinus syndrome; K21.9 Gastro-esophageal reflux disease without esophagitis; S93.409D Sprain of unspecified ligament of unspecified ankle, subsequent encounter; Z95.0 Presence of cardiac pacemaker
CPT/HCPCS: 36415; 85025

== ENCOUNTER → 2024-12-11 09:56 | Outpatient (REF) | payer OTHER, SELFPAY | LOC: RAD 09:56 | PROVIDERS: ATTENDING PHYSICIAN Surgery Vascular Surgery | DX: I73.9 Peripheral vascular disease, unspecified (principal); I65.23 Occlusion and stenosis of bilateral carotid arteries | CPT/HCPCS: 93880; 93922; 93925 ==

== ENCOUNTER 2024-12-12 02:53 | Inpatient (IN) | payer OTHER, SELFPAY ==
[2024-12-11 21:23] VITALS: BP 220/73
[2024-12-11 21:27] VITALS: BMI 24.2
[2024-12-11 21:54] LABS: INR 1.33; PT 17.0 Sec (11.4-14.6)
[2024-12-11 21:55] LABS: APTT 49.0 Sec (23.4-35.0)
[2024-12-11 21:56] LABS: Hematocrit 30.9 % (37.0-47.0); Hemoglobin 10.6 g/dL (12.0-16.0); Mean Corp Hgb Conc. 34.3 g/dL (33.0-37.0); Mean Corpuscular Volume 88.3 fL (81.0-99.0); Platelet Count 213 10^3/uL (130-400); Red Cell Dist. Width 12.5 % (11.5-14.5)
[2024-12-11 22:00] VITALS: BP 199/68
[2024-12-11 22:05] LABS: ALT (SGPT) < 10 U/L (0-35); AST (SGOT) 23 U/L (14-36); Absolute Neutrophils -Man Diff 3.9 10^3/uL (1.4-6.5); Albumin 4.3 g/dl (3.5-5.0); Alkaline Phosphatase 109 U/L (38-126); Blood Urea Nitrogen 22 mg/dl (7-17); Calcium 8.9 mg/dl (8.4-10.2); Carbon Dioxide 22 mmol/L (22-30); Chloride 93 mmol/L (98-107); Estimated Creatinine Clearance 39 ml/min; Glucose 103 mg/dl (70-99); Potassium 4.3 mmol/L (3.5-5.1); Sodium 124 mmol/L (135-145); Total Protein 7.5 g/dl (6.3-8.2); eGFR > 60.00
[2024-12-11 22:06] LABS: Normal RBC Morphology Yes; Platelets Checked Yes; Total Cells Counted 100
[2024-12-11 22:10] LABS: Troponin I < 0.012 ng/ml
[2024-12-11 23:00] VITALS: BP 180/57
--- NOTE | 2024-12-11 23:51 | ED.GENMED ---
History of Present Illness
General
Chief Complaint: Overdose Unintentional
Source: patient and family
Exam Limitations: none
Time Seen by Provider: 12/11/24 22:30
Nursing documentation reviewed up to this point in time: agreed with
History of Present Illness
History of Present Illness:
84-year-old female with a past medical history of COPD, hypertension, hyperlipidemia, atrial fibrillation, pacemaker, CAD who presents to the emergency room with her daughter for evaluation of her unintentional overdose. The patient was recently at
[facility] for rehab after an ankle injury. When she returned home last week she started with a new pillbox and alarm system to help remember to take her medications. Her family has been supervising her for the past few days. Her daughter filled
her pillbox with her and double checked it yesterday. Tonight patient was taking her nighttime medications on her own and patient says that she got confused that she says that she was talking to her grandson while she was taking the medicine and
lost track of what she was taking. Patient recognized shortly after taking her medicine that she had taken too much medicine and when her daughter returns home from dinner noted that there were significant missing pills and brought her to the
emergency room to be evaluated. Time of ingestion between 8:30 PM and 9 PM. Daughter brought pill box and pills to bedside and I was able to take an inventory of what was missing�patient ingested the following tonight per count of her medications:
#4 of Sinemet 25-100 mg tabs
#5 of Pantoprazole 20 mg tablet
#1 of Atorvastatin 80 mg tab
#3 of Isosorbide dinitrate 60 mg tab
#6 of Dabigatran 150 mg tabs
#4 of Dofetilide 250 mcg capsules
#5 of Ursodiol 300 mg capsule
#4 of Valsartan 80 mg tabs
#3 of Sertraline 25 mg tabs
Patient complains of some mild nausea but has not had any vomiting. Denies abdominal pain. She said she has some mild dizziness. No chest pain. She denies any other acute complaints. She denies adamantly that she had any kind of suicidal or
self-harm intent.
Past History
Past History
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
ED Past Surgical History: Cardiac (Pacemaker, PTCI) and Other (Mastectomy L, renal artery PTCI)
Social History
Tobacco: Former smoker
Alcohol: Occasional
Drug: None
Personal: Other
Living: alone
Employment: Retired
Family History
Family History: Other
Review of Systems
Review of Systems
All Other Systems: ROS reviewed and negative except as documented in HPI and ROS
Respiratory: Denies trouble breathing
Cardiac: Denies chest pain
ABD/GI: Reports nausea; Denies abdominal pain, vomiting or diarrhea
: Denies flank pain
Musculoskeletal: Denies neck pain or back pain
Neurological: Reports dizzy; Denies headache
Phy Exam
Physical Exam
Physical Exam:
General: Awake, alert, oriented x3; somewhat anxious
Head: Normocephalic, atraumatic
Eyes: Conjunctiva normal, pupils equal round and reactive to light bilaterally
Throat: Airway intact, handling secretions, moist mucous membranes
Neck: Trachea midline, supple without meningismus
Lungs: Clear to auscultation bilaterally, no wheezing, rales, rhonchi
Heart: Regular rate and rhythm, no murmurs, gallops, or rubs; pacemaker noted
Abd: Soft, non distended, nontender
Neuro: No gross deficits
Skin: Skin is warm and dry, no rash
Extremities: No edema in extremities, equal pulses in all extremities
Scores
Heart Failure Risk
Heart Failure Risk Score: Not Applicable
Heart Score for Chest Pain Patients
STEMI patient?: Not applicable
Withdrawal Assessment of Alcohol
Withdrawal Assessment Completed?: Not applicable
Course
Orders/Labs/Results
Orders:
Orders
12/11/24 21:21
Electrocardiogram (*1) Urgent
Reason for Study: Chest Pain
12/11/24 21:22
EKG- Treatment ONCE
12/11/24 21:36
Type And Crossmatch [Type+Screen] Urgent
Complete Blood Count/With Diff Urgent
Comprehensive Metabolic Panel Urgent
Manual Differential Urgent
PT/INR [Prothrombin Time] Urgent
PTT Urgent
Troponin I Urgent
12/11/24 22:33
Interrogate Pacemaker- Treatment ONCE
Abnormal Lab Results
12/11/24
21:36
RBC 3.50 L 10^6/uL
(4.20-5.40)
Hgb 10.6 L g/dL
(12.0-16.0)
Hct 30.9 L %
(37.0-47.0)
Monocytes (Manual) 17 H %
(2-9)
PT 17.0 H Sec
(11.4-14.6)
APTT 49.0 H Sec
(23.4-35.0)
Sodium 124 L mmol/L
(135-145)
Chloride 93 L mmol/L
(98-107)
BUN 22 H mg/dl
(7-17)
Glucose 103 H mg/dl
(70-99)
12/11/24 21:36
12/11/24 21:36
Vital Signs
Initial and Last Documented VS:
Initial Vital Signs
Temp Pulse Resp BP Pulse Ox
36.9 C 71 18 220/73 97
12/11/24 21:23 12/11/24 21:23 12/11/24 21:23 12/11/24 21:23 12/11/24 21:23
Last Documented Vital Signs
Temp Pulse Resp BP Pulse Ox
36.9 C 71 19 180/57 95
12/11/24 21:23 12/11/24 23:00 12/11/24 23:00 12/11/24 23:00 12/11/24 23:00
MDM/Problems Addressed
Differential Diagnosis Includes:
Unintentional overdose
MDM/Problems Addressed:
84-year-old female with extensive medical history presents after unintentional overdose on multiple medications�unfortunately became confused while taking her medications from new pillbox and took more than she was supposed to. Time of ingestion
was roughly 9 PM. Minimal symptoms now. She is hypertensive, heart rate normal paced rhythm rest of vitals normal. Physical exam as above. She had lab work sent off in triage including a CBC which shows marginal anemia, CMP which shows
hyponatremia which is new compared to prior labs. Acceptable renal function and no acidosis. Normal glucose. PT and PTT prolonged. EKG shows paced rhythm with narrow QRS and acceptable QTc. Case was discussed with poison control for
consultation�on review of the multiple medications most are below the threshold for toxic effect but concerns about following ingestions on their part:
Isosorbide dinitrate�can cause significant hypotension with peak therapeutic effect 4 to 6 hours; recommended at least 10-hour observation. Initiate fluids for hypotension, vasopressors as needed for refractory hypotension
Dofetilide�can cause QT prolongation and bradycardia; certainly pacer will protect from bradycardia but QT prolongation remains concerned. Serial EKGs and 6-hour observation recommended. Monitoring of electrolytes particularly if correcting
hyponatremia of critical importance
Dabigatran�bleeding would be biggest concerning side effect, recommended 6-hour observation and monitoring for signs of bleeding
Will plan to admit for overnight observation, trending of labs. Added urine studies to address hyponatremia will hold on fluids for now pending these. Case discussed with hospitalist for admission.
*Pulse Oximetry
SaO2: 95
Oxygen Mode of Delivery: Room air
Patient hypoxic: no (95%)
*EKG
Interpreted by ED Provider?: Yes
Heart Rate: 70
Rhythm: other (Atrial paced rhythm)
Interval: normal interval and normal QT interval
QRS Pattern: normal QRS
*Critical Care Note
Total Time (30-74mins, 75-104mins- exclusive of procedures): Not Applicable
Data Reviewed
Review of Other/Old Records Reveals: Labs and Records
Source: patient and family
Patient Management
Discussion with other providers: Hospitalist (Discussed with hospitalist) and Other (Discussed with Poison Control Center)
Escalation/DeEscalation of care consider admission/obs:
Admission indicated
ED Attending Note
-
Portions of this chart may have been created with voice recognition software.� Occasional wrong word or��sound alike� substitutions may have occurred due to the inherent limitations of voice recognition software.
Discharge Plan
Departure
Patient Disposition: Admit
Date of Disposition: 12/12/24
Time of Disposition: 00:06
Admit to doctor: [facility]
Presentation/result/management discussed w/ accepting MD/DO: Hospitalist
Discharge Problem:
Accidental overdose
Prescriptions:
No Action
ursodiol 300 MG capsule
300 mg PO DAILY
ursodiol 300 MG capsule
600 mg PO HS
dabigatran etexilate [Pradaxa] 150 MG capsule
150 mg PO BID Qty: 60 1RF
isosorbide mononitrate 60 mg tablet extended release 24 hr
60 mg PO DAILY
metoprolol succinate 100 mg Tablet Extended Release 24 Hr
100 mg PO DAILY Qty: 30 0RF
cholecalciferol (vitamin D3) [Vitamin D3] 50 mcg (2,000 unit) Capsule
50 mcg PO DAILY
propranolol 20 mg Tablet
20 mg PO Q4HPRN PRN (Reason: a fib/HR>100)
calcium carbonate 500 mg calcium (1,250 mg) Tablet
500 mg PO DAILY
pantoprazole [Protonix] 20 mg Tablet,Delayed Release (Dr/Ec)
20 mg PO BID
dofetilide 250 mcg capsule
250 mcg PO BID
metoprolol succinate 50 mg Tablet Extended Release 24 Hr
50 mg PO HS
sertraline [Zoloft] 25 mg Tablet
25 mg PO DAILY
valsartan 80 mg Tablet
80 mg PO DAILY
furosemide 20 mg Tablet
20 mg PO DAILYPRN PRN (Reason: edema)
carbidopa-levodopa [Sinemet] 25-100 mg tablet
1 tab PO TID
clonidine HCl 0.1 mg Tablet
0.1 mg PO Q6HPRN PRN (Reason: sbp>160 or dbp>100) Qty: 0 0RF
magnesium oxide 500 mg magnesium Tablet
500 mg PO HS Qty: 0 0RF
nifedipine 30 mg Tablet Extended Release 24hr
30 mg PO QPM
lidocaine 4 % Adhesive Patch,Medicated
1 patch TOPICAL DAILY
bisacodyl [Dulcolax (bisacodyl)] 10 mg Suppository
[address] DAILY PRN (Reason: if MOM ineffective)
Patient Comments:
11/18/2024, give on day 5.
cyclobenzaprine 5 mg Tablet
5 mg PO DAILYPRN PRN (Reason: muscle spasm)
acetaminophen 325 mg tablet
650 mg PO Q4HPRN MDD 3000 mg PRN (Reason: mild pain/MCGHEE/temp> 100F)
atorvastatin 80 mg Tablet
80 mg PO HS Qty: 0 0RF
folic acid 1 mg Tablet
1 mg PO DAILY Qty: 0 0RF
cyanocobalamin (vitamin B-12) [Vitamin B-12] 1,000 mcg Tablet
1,000 mcg PO DAILY Qty: 0 0RF
Alvogen-Levothyroxine
112 mcg PO DAILY
Referrals:
Florecita Valentine DO [Family Provider, Family Practice]
Interventions
Interventions:
*Risk Screen - Suicide Last Done: 12/11/24 21:40
*General Assessment Last Done: 12/11/24 21:40
*Neglect/Abuse Screening Last Done: 12/11/24 21:40
*ED- Fall Risk Assessment Last Done: 12/11/24 21:40
*ED COVID-19 Vaccine History Last Done: 12/11/24 21:40
ED- Cardiac Assessment Last Done: 12/11/24 21:44
ED- Neurological Assessment Last Done: 12/11/24 21:44
ED-Psychological Assessment Last Done: 12/11/24 21:44
ED- Pulmonary Assessment Last Done: 12/11/24 21:44
Discharge Date and Time
Print Language: HUNGARIAN
[2024-12-12] VITALS (18 sets, daily range): BP systolic 103–205; BP diastolic 42–100; BMI 27.1; BMI 23.3
--- NOTE | 2024-12-12 01:22 | HPS.HSE ---
Family Physician
-
Family Physician: Florecita Valentine
Chief Complaint
-
Accidental Overdose
History of Present Illness
Patient is an 84y F with PMH significant for A-Fib, hypertension and Parkinson's disease who presents to ED for evaluation after taking too many medications this evening. Patient was recently admitted 11/18 - 11/21 due to hypertensive
encephalopathy which was attributed to poor med compliance. She has since obtained a new pill minder system with alarms, etc. Patient states that she was distracted this evening while taking her medications and accidentally took too many pills.
The pill minder was able to be examined by ED staff to determine exact pills / amounts taken (see below). Patient felt some nausea at home and was brought to the ED for evaluation.
She denies any intentional overdose / suicidal ideation / etc.
She has had nausea with a few episodes of non-bloody emesis here in the ED. She had some chest tightness earlier that has since resolved.
She complains of feeling lightheaded / dizzy.
No other current complaints.
#4 of Sinemet 25-100 mg tabs
#5 of Pantoprazole 20 mg tablet
#1 of Atorvastatin 80 mg tab
#3 of Isosorbide dinitrate 60 mg tab
#6 of Dabigatran 150 mg tabs
#4 of Dofetilide 250 mcg capsules
#5 of Ursodiol 300 mg capsule
#4 of Valsartan 80 mg tabs
#3 of Sertraline 25 mg tabs
Pills were taken between 8:30 - 9:00 PM this evening.
Medical History
Past Medical History
Past Medical History: Reports Other
Additional Past Medical History:
ASCVD (CAD, Carotid Stenosis, Renal Artery Stenosis)
Persistent Atrial Fibrillation
Hypertension
SSS s/p PPM
Parkinson's Disease
Hypothyroidism
Breast Cancer
GERD
Past Surgical History: Reports Other
Additional Past Surgical History:
PTCA with Stent
Renal Artery PCI
Left Mastectomy
PPM Placement
Bilateral CEA
Social History
Tobacco: Former Smoker
Alcohol: Occasional
Drug: None
Family History
Family History: Not pertinent
Allergies / Home Medications
Allergies reflects when Allergies were last updated in [facility].
Home Medications with original date entered in [facility]
Allergy/Medication List:
Allergies
Allergy/AdvReac Type Severity Reaction Status Date / Time
adhesive Allergy Redness, Verified 11/18/24 18:52
rash
amiodarone Allergy tremors Verified 11/18/24 18:52
diltiazem Allergy Rash Verified 11/18/24 18:52
hydralazine (Hydralazine) Allergy RAMSEY, Verified 11/18/24 18:52
Fatigue,
Dizziness
Iodinated Contrast Media Allergy Rash and Verified 11/18/24 18:52
(Iodinated Contrast Media - Warmth
IV Dye)
iodine (Iodine) Allergy rash with Verified 11/18/24 18:52
ivp dye
omeprazole Allergy Nausea Verified 11/18/24 18:52
spironolactone Allergy kidney Verified 11/18/24 18:52
failure-
Hypercalcemia
Home Medications
ursodiol 300 mg capsule 300 mg PO DAILY Urinary issue 01/23/17
ursodiol 300 mg capsule 600 mg PO HS Urinary issue 01/23/17
dabigatran etexilate 150 mg capsule (Pradaxa) 150 mg PO BID #60 caps 08/04/21
isosorbide mononitrate 60 mg tablet,extended release 24 hr 60 mg PO DAILY CHEST PAIN 05/18/22
metoprolol succinate 100 mg tablet,extended release 24 hr 100 mg PO DAILY #30 tabs 05/28/22
cholecalciferol (vitamin D3) 50 mcg (2,000 unit) capsule (Vitamin D3) 50 mcg PO DAILY Supplement 06/21/23
propranolol 20 mg tablet 20 mg PO Q4HPRN PRN a fib/HR>100 06/23/23
calcium carbonate 500 mg PO DAILY Supplement 12/07/23
pantoprazole 20 mg tablet,delayed release (Protonix) 20 mg PO BID Gastrointestinal Issue 02/09/24
dofetilide 250 mcg capsule 250 mcg PO BID Arrhythmia 02/16/24
furosemide 20 mg tablet 20 mg PO DAILYPRN PRN edema 06/29/24
metoprolol succinate 50 mg tablet,extended release 24 hr 50 mg PO HS Blood Pressure 06/29/24
sertraline 25 mg tablet (Zoloft) 25 mg PO DAILY Depression 06/29/24
valsartan 80 mg tablet 80 mg PO DAILY Blood Pressure 06/29/24
carbidopa 25 mg-levodopa 100 mg tablet (Sinemet) 1 tab PO TID Neurological Condition 11/08/24
clonidine HCl 0.1 mg tablet 0.1 mg PO Q6HPRN PRN sbp>160 or dbp>100 #0 tabs 11/11/24
magnesium oxide 500 mg PO HS #0 tabs 11/11/24
acetaminophen 325 mg tablet 650 mg PO Q4HPRN PRN mild pain/MCGHEE/temp> 100F 11/18/24
bisacodyl 10 mg rectal suppository (Dulcolax (bisacodyl)) 10 mg IN DAILY PRN if MOM ineffective 11/18/24
cyclobenzaprine 5 mg tablet 5 mg PO DAILYPRN PRN muscle spasm 11/18/24
lidocaine 4 % topical patch 1 patch topical DAILY apply to B/L shoulders 11/18/24
nifedipine 30 mg tablet,extended release 24 hr 30 mg PO QPM Blood Pressure 11/18/24
atorvastatin 80 mg tablet 80 mg PO HS #0 tabs 11/21/24
cyanocobalamin (vitamin B-12) 1,000 mcg tablet (Vitamin B-12) 1,000 mcg PO DAILY #0 tabs 11/21/24
folic acid 1 mg tablet 1 mg PO DAILY #0 tabs 11/21/24
Alvogen-Levothyroxine 112 mcg PO DAILY 12/11/24
Review of Systems
-
History Source: Patient
A 12 point ROS was completed and negative except as noted: Yes
Constitutional: Reports Fatigue; Denies Fever or Chills
EENT: Denies Sore Throat
Respiratory: Denies Cough or Trouble Breathing
Cardiac: Denies Chest Pain or Palpitations
Abdomen/GI: Reports Nausea and Vomiting; Denies Abdominal Pain or Diarrhea
: Denies Dysuria, Frequency or Flank Pain
Musculoskeletal: Denies Joint Pain or Edema
Neurological: Reports Dizzy; Denies Headache
Psych: Denies Depression or Anxiety
Physical Exam
Vital Signs
Vital Signs
Temp Pulse Resp BP Pulse Ox
98.4 F 71 19 180/57 95
12/11/24 21:23 12/11/24 23:00 12/11/24 23:00 12/11/24 23:00 12/11/24 23:58
Physical Exam
General: Other (84y F in no acute distress.)
HEENT: Moist mucous membranes and PERRLA
Respiratory: Clear; No Wheezes, Rales or Rhonchi
Cardiac: S1/S2, Irregular Rhythm and Murmur (II/ ARTURO)
GI: Soft, Non Tender, Non Distended and Normal Bowel Sounds
Musculoskeletal: No Clubbing, No Cyanosis and No Edema
Neuro: Awake, Alert and Nonfocal/grossly intact
Laboratory Results
-
12/11/24 21:36
12/11/24 21:36
Laboratory Results
PT 17.0 Sec (11.4-14.6) H 12/11/24 21:36
INR 1.33 12/11/24 21:36
APTT 49.0 Sec (23.4-35.0) H 12/11/24 21:36
Total Bilirubin 0.8 mg/dl (0.2-1.3) 12/11/24 21:36
AST 23 U/L (14-36) 12/11/24 21:36
ALT < 10 U/L (0-35) 12/11/24 21:36
Alkaline Phosphatase 109 U/L (38-126) 12/11/24 21:36
Troponin I < 0.012 ng/ml 12/11/24 21:36
Impression/Plan
-
A/P: Patient is an 84y F with PMH significant for A-Fib, ASCVD, hypertension and Parkinson's disease who presents to ED for evaluation after accidental med overdose this evening.
Unintentional Overdose
- Admit to IMU for further evaluation and treatment.
- Monitor on telemetry. Serial EKG for evidence of QT prolongation.
- Avoid other QT prolonging meds. Use Tigan for nausea if needed.
- IVF support +/- pressors if needed for hypotension.
- Recommendations from Poison Control reviewed.
- Supportive care overnight and re-evaluation in AM.
- Consider resuming usual meds / doses in AM if patient remains clinically stable.
Hyponatremia
- Urine studies pending for further evaluation.
- ? secondary to nausea / ADH.
- Fluid restrict for now. IVFs if patient develops hypotension.
- Follow-up urine studies and adjust plan as needed.
Benign Hypertension
- Recent admission for hypertensive encephalopathy.
- BP initially quite elevated this evening - but since improved without intervention.
- Monitor for development of hypotension due to accidental overdose.
- Fluids +/- pressors as noted above.
- Consider restarting usual meds in AM if BP elevated.
Persistent Atrial Fibrillation
- Stable. Holding all meds acutely.
- Monitor for any evidence of bleeding due to Pradaxa overdose.
- Follow for any new neurologic symptoms, etc.
ASCVD
- Some chest pain earlier - since resolved.
- Check troponin and follow serial sets.
- Holding all meds acutely - consider restarting in AM if patient remains stable.
Chronic Normocytic Anemia
- Slight decrease from prior values. No noted bleeding.
- Follow H&H for changes.
Hypothyroidism
- Recent dose adjustment during prior visit.
- Continue T4 supplementation.
Parkinson's Disease
- Multiple Sinemet tabs included in overdose.
- Follow for any movement disorder, rigidity, etc.
- Consider resuming usual dose regimen in AM if patient remains stable.
DVT Prophylaxis: SCDs for now while Pradaxa on hold.
Code Status: Full
[2024-12-12 05:51] LABS: Hematocrit 29.7 % (37.0-47.0); Hemoglobin 10.3 g/dL (12.0-16.0); Mean Corp Hgb Conc. 34.7 g/dL (33.0-37.0); Mean Corpuscular Volume 87.9 fL (81.0-99.0); Platelet Count 222 10^3/uL (130-400); Red Cell Dist. Width 12.4 % (11.5-14.5)
[2024-12-12 06:01] LABS: INR 1.59; PT 19.5 Sec (11.4-14.6)
[2024-12-12 06:19] LABS: ALT (SGPT) < 10 U/L (0-35); AST (SGOT) 22 U/L (14-36); Albumin 4.0 g/dl (3.5-5.0); Alkaline Phosphatase 99 U/L (38-126); Blood Urea Nitrogen 20 mg/dl (7-17); Calcium 9.3 mg/dl (8.4-10.2); Carbon Dioxide 25 mmol/L (22-30); Chloride 94 mmol/L (98-107); Estimated Creatinine Clearance 45 ml/min; Glucose 101 mg/dl (70-99); Potassium 4.2 mmol/L (3.5-5.1); Sodium 125 mmol/L (135-145); Total Protein 7.0 g/dl (6.3-8.2); eGFR > 60.00
[2024-12-12] MEDS: SYNTHROID 112 MCG PO (08:03)
[2024-12-12] MEDS: TYLENOL 650 MG PO ×2 (08:04→15:23)
--- NOTE | 2024-12-12 08:24 | W.PN.HOSP.TC ---
Addendum entered and electronically signed by Oscar Gardiner MD 12/12/24 11:55:
Patient denies chest pain or shortness of breath this morning. She knows her unintentional overdose. Denies any suicidal intention.
Original Note:
Today's Communication/Plan
-
See plan
Assessment / Plan
Assessment / Plan
Physical Exam
General: Other (84y F in no acute distress.)
HEENT: Moist mucous membranes and PERRLA
Respiratory: Clear; No Wheezes, Rales or Rhonchi
Cardiac: S1/S2, Irregular Rhythm and Murmur (II/ ARTURO)
GI: Soft, Non Tender, Non Distended and Normal Bowel Sounds
Musculoskeletal: No Clubbing, No Cyanosis and No Edema
Neuro: Awake, Alert and Nonfocal/grossly intact
A/P:
Unintentional Overdose
- Admit to IMU for further evaluation and treatment.
- Monitor on telemetry. Serial EKG for evidence of QT prolongation.
- Avoid other QT prolonging meds. Use Tigan for nausea if needed.
- IVF support +/- pressors if needed for hypotension.
- Recommendations from Poison Control reviewed.
- Supportive care overnight and re-evaluation in AM.
- Consider resuming usual meds / doses tomorrow if patient remains clinically stable.
- I updated daughter over the phone today.
-Discussed with attending RN today.
-Plan to repeat labs in a.m.
-Plan to repeat EKG for QTc monitoring in a.m.
-These are the medications ingested:
#4 of Sinemet 25-100 mg tabs
#5 of Pantoprazole 20 mg tablet
#1 of Atorvastatin 80 mg tab
#3 of Isosorbide dinitrate 60 mg tab
#6 of Dabigatran 150 mg tabs
#4 of Dofetilide 250 mcg capsules
#5 of Ursodiol 300 mg capsule
#4 of Valsartan 80 mg tabs
#3 of Sertraline 25 mg tabs
Hyponatremia
- Urine studies pending for further evaluation.
- ? secondary to nausea / ADH.
- Fluid restrict for now. IVFs if patient develops hypotension.
- Follow-up urine studies and adjust plan as needed.
- Nephrology consulted-discussed with nephrology today
Benign Hypertension
- Recent admission for hypertensive encephalopathy.
- BP initially quite elevated this evening - but since improved without intervention.
- Monitor for development of hypotension due to accidental overdose.
- Fluids +/- pressors as noted above.
- Consider restarting usual meds in AM if BP elevated.
Persistent Atrial Fibrillation
- Stable. Holding all meds acutely.
- Monitor for any evidence of bleeding due to Pradaxa overdose.
- Follow for any new neurologic symptoms, etc.
ASCVD
- Some chest pain earlier - since resolved.
- Check troponin and follow serial sets.
- Holding all meds acutely - consider restarting in AM if patient remains stable.
Chronic Normocytic Anemia
- Slight decrease from prior values. No noted bleeding.
- Follow H&H for changes.
Hypothyroidism
- Recent dose adjustment during prior visit.
- Continue T4 supplementation.
Parkinson's Disease
- Multiple Sinemet tabs included in overdose.
- Follow for any movement disorder, rigidity, etc.
- Consider resuming usual dose regimen in AM if patient remains stable.
DVT Prophylaxis: SCDs for now while Pradaxa on hold.
Code Status: Full
Anticipated Discharge: > 48 hours
Subjective/Interval History
-
Date of Service: December 12, 2024
Objective Data
-
Labs:
Laboratory Results
12/11/24 12/12/24
21:36 05:39
WBC 7.6 8.4
Hgb 10.6 L 10.3 L
Hct 30.9 L 29.7 L
Plt Count 213 222
PT 17.0 H 19.5 H
INR 1.33 1.59
APTT 49.0 H
Sodium 124 L 125 L
Potassium 4.3 4.2
Chloride 93 L 94 L
Carbon Dioxide 22 25
BUN 22 H 20 H
Creatinine 0.8 0.7
Glucose 103 H 101 H
Calcium 8.9 9.3
Total Bilirubin 0.8 0.7
AST 23 22
ALT < 10 < 10
Alkaline Phosphatase 109 99
Vital Signs:
Vital Signs
Temp Pulse Resp BP Pulse Ox
98.3 F 72 18 139/47 96
12/12/24 08:09 12/12/24 06:30 12/12/24 06:30 12/12/24 06:00 12/12/24 06:30
--- NOTE | 2024-12-12 08:25 | VNURNOTE ---
Chart reviewed. Patient is current with [facility]. Will continue to follow hospital course and DC plans.
[2024-12-12] MEDS: TIGAN 200 MG IM (09:04)
--- NOTE | 2024-12-12 10:02 | W.CON.NEPH ---
Consultation
-
Date/Time Consultation Requested: 12/12/24 0923
Date/Time Consultation Performed: 12/12/24 1000
Requesting Provider: Oscar Mack
Performing Provider: Criselda Conteh
Reason for Consultation: Hyponatremia
Medical History
-
Chief Complaint: Accidental Overdose
History of Present Illness:
84y F with PMH significant for A-Fib on Dofetilide, BB, AC with Pradaxa, hypertension on multiple meds, depression on ZOloft for 1yr and Parkinson's disease on Sinemet, who presents to ED for evaluation after taking too many medications this
evening. Patient was recently admitted 11/18 - 11/21 due to hypertensive encephalopathy which was attributed to poor med compliance. She has since obtained a new pill minder system with alarms, etc. Patient states that she was distracted this
evening while talking her grandson and accidentally took too many pills. The pill minder was able to be examined by ED staff to determine exact pills / amounts taken-list reviewed. Patient felt some nausea, dizzy and unsteady gait at home and was
brought to the ED on 12/11 for evaluation. her sodium was at 124 on admit(normal on last admit) and repeat today still at 125 hence nephrology consulted.
She had some chest tightness earlier that has since resolved. NO SOB. No n/v today. NO dysuria or fever. She reports drinking 5-6 8 ounce glasses water daily but lately her food intake is less and associated with wt loss 10lns in last 2weeks. She
denies use of NSAIDs. Poison control informed and recommneded supportive care.
Past Medical History
ASCVD (CAD, Carotid Stenosis, Renal Artery Stenosis)
Persistent Atrial Fibrillation
Hypertension
SSS s/p PPM
Parkinson's Disease
Hypothyroidism
Breast Cancer
GERD
Past Surgical History: Other (PTCA with Stent Renal Artery PCI Left Mastectomy PPM Placement Bilateral CEA)
Social History
Tobacco: Former Smoker
Alcohol: Occasional
Drug: None
Family History
Family History: Not Pertinent
Allergies / Home Medications
Allergy/AdvReac Type Severity Reaction Status Date / Time
adhesive Allergy Redness, Verified 11/18/24 18:52
rash
amiodarone Allergy tremors Verified 11/18/24 18:52
diltiazem Allergy Rash Verified 11/18/24 18:52
hydralazine (Hydralazine) Allergy RAMSEY, Verified 11/18/24 18:52
Fatigue,
Dizziness
Iodinated Contrast Media Allergy Rash and Verified 11/18/24 18:52
(Iodinated Contrast Media - Warmth
IV Dye)
iodine (Iodine) Allergy rash with Verified 11/18/24 18:52
ivp dye
omeprazole Allergy Nausea Verified 11/18/24 18:52
spironolactone Allergy kidney Verified 11/18/24 18:52
failure-
Hypercalcemia
�Medication �Instructions �Recorded �Confirmed �Type
ursodiol 300 mg capsule 300 mg PO DAILY Urinary issue 01/23/17 12/12/24 History
ursodiol 300 mg capsule 600 mg PO HS Urinary issue 01/23/17 12/12/24 History
dabigatran etexilate 150 mg 150 mg PO BID #60 caps 08/04/21 12/12/24 Rx
capsule (Pradaxa)
isosorbide mononitrate 60 mg 60 mg PO DAILY CHEST PAIN 05/18/22 12/12/24 History
tablet,extended release 24 hr
metoprolol succinate 100 mg 100 mg PO DAILY #30 tabs 05/28/22 12/12/24 Rx
tablet,extended release 24 hr
cholecalciferol (vitamin D3) 50 50 mcg PO DAILY Supplement 06/21/23 12/11/24 History
mcg (2,000 unit) capsule (Vitamin
D3)
calcium carbonate 500 mg PO DAILY Supplement 12/07/23 12/12/24 History
pantoprazole 20 mg tablet,delayed 20 mg PO BIDPRN PRN gerd 02/09/24 12/12/24 History
release (Protonix)
dofetilide 250 mcg capsule 250 mcg PO BID Arrhythmia 02/16/24 12/12/24 History
metoprolol succinate 50 mg 50 mg PO HS Blood Pressure 06/29/24 12/12/24 History
tablet,extended release 24 hr
sertraline 25 mg tablet (Zoloft) 25 mg PO DAILY Depression 06/29/24 12/12/24 History
valsartan 80 mg tablet 80 mg PO DAILY Blood Pressure 06/29/24 12/12/24 History
carbidopa 25 mg-levodopa 100 mg 1.5 tab PO QID Neurological 11/08/24 12/12/24 History
tablet (Sinemet) Condition
acetaminophen 325 mg tablet 650 mg PO Q4HPRN PRN mild 11/18/24 12/12/24 History
pain/MCGHEE/temp> 100F
nifedipine 30 mg tablet,extended 30 mg PO QPM Blood Pressure 11/18/24 12/12/24 History
release 24 hr
atorvastatin 80 mg tablet 80 mg PO HS #0 tabs 11/21/24 12/12/24 Rx
cyanocobalamin (vitamin B-12) 1,000 mcg PO DAILY #0 tabs 11/21/24 12/12/24 Rx
1,000 mcg tablet (Vitamin B-12)
levothyroxine 112 mcg tablet 112 mcg PO DAILY 12/11/24 12/12/24 History
(Synthroid)
cholecalciferol (vitamin D3) 25 25 mcg PO DAILY 12/12/24 12/12/24 History
mcg (1,000 unit) capsule (Vitamin
D3)
magnesium glycinate 100 mg (as 400 mg PO DAILY 12/12/24 12/12/24 History
glycinate) tablet
Review of Systems
-
All other systems: Negative unless noted
Physical Exam
Vital Signs
Vital Signs
Temp Pulse Resp BP Pulse Ox
98.3 F 72 18 139/47 96
07/17/25 08:09 12/12/24 06:30 12/12/24 06:30 12/12/24 06:00 12/12/24 06:30
Lab Results
WBC 8.4 10^3/uL (4.8-10.8) 12/12/24 05:39
RBC 3.38 10^6/uL (4.20-5.40) L 12/12/24 05:39
Hgb 10.3 g/dL (12.0-16.0) L 12/12/24 05:39
Hct 29.7 % (37.0-47.0) L 12/12/24 05:39
Plt Count 222 10^3/uL (130-400) 12/12/24 05:39
Sodium 125 mmol/L (135-145) L 12/12/24 05:39
Potassium 4.2 mmol/L (3.5-5.1) 12/12/24 05:39
Chloride 94 mmol/L (98-107) L 12/12/24 05:39
Carbon Dioxide 25 mmol/L (22-30) 12/12/24 05:39
BUN 20 mg/dl (7-17) H 12/12/24 05:39
Creatinine 0.7 mg/dL (0.6-1.0) 12/12/24 05:39
eGFR > 60.00 12/12/24 05:39
Glucose 101 mg/dl (70-99) H 12/12/24 05:39
Calcium 9.3 mg/dl (8.4-10.2) 12/12/24 05:39
Albumin 4.0 g/dl (3.5-5.0) 12/12/24 05:39
Physical Exam
General: Awake, Alert, Oriented, AOx3, No Distress and Nontoxic
HEENT: Anicteric, Conjunctivae Clear, Ear/Nose Intact and Facial Symmetry
Respiratory: Clear, Normal Excursion and Nonlabored Respirations
Cardiac: S1/S2, Regular Rate/Rhythm and Murmur
Abdomen: Soft, Nontender and Nondistended
Musculoskeletal: No Edema
Skin: No Rash
Neuro: Nonfocal/Grossly Intact
Psych: Mood/afflect pleasant, Insight/judgement good and Appropriate
Data Reviewed
-
Radiology: Report Reviewed by me and Discussed with Patient
Labs: Labs Reviewed by me, Discussed with Physician and Discussed with Patient
Assessment/Plan
-
IMP:
Unintentional Overdose
Hyponatremia
Benign Hypertension
Recent admission for hypertensive encephalopathy.
Persistent Atrial Fibrillation
ASCVD
Chronic Normocytic Anemia
Hypothyroidism
Parkinson's Disease
Plan:
A/w unintentional OD of multiple meds
Hyponatremia new this time
U osmo high at 251, U na low 27 with poor solute intake
note she is on SSRI -took extra dose on 12/11
recent TSH was low, LT4 adjusted in October
will give her HTS and monitor response, q6h na check
goal correction likely slightly liberal assuming it is acute onset based on symp
encourage solute intake
BP stable but soft , meds with parameters
d/w primary and pt
[2024-12-12] MEDS: SODIUM CHLORIDE 3% 250 IV (14:23)
[2024-12-12] MEDS: LIORESAL 2.5 MG PO (14:38)
[2024-12-12 14:53] LABS: Sodium 124 mmol/L (135-145)
--- NOTE | 2024-12-12 15:22 | CM ---
Met with patient at bedside in ED
Pharmacy verified: [facility] @ [address] [facility]
Patient lives alone; multilevel home; 5 steps to enter; railing present; 1st floor set up; tub w/ shower in bath, grab bar
PLOF: reported that she needs assistance with ADLs, ambulates with cane; unable to get in/out of tub alone
Recent stay @ [facility]; Home Health services with [facility] in the past
Daughter or son-in-law will transport home
Plan: patient anticipates that she will go home with Home Health and private caregivers; Case Management will monitor and support discharge needs/services accordingly
[2024-12-12] MEDS: ULTRAM 50 MG PO (16:19)
[2024-12-12 16:46] LABS: Magnesium 1.7 mg/dl (1.6-2.3)
[2024-12-12 21:53] LABS: Sodium 133 mmol/L (135-145)
[2024-12-12] MEDS: D5W 1000 IV (23:05)
--- NOTE | 2024-12-12 23:19 | PTCARENOTE ---
received pt from ED. pt aaox2, unable to recall the year. Pt drowsy d/t tramadol given in ED, per daughter. Daughter at bedside. 3% NS running through L FA infiltrated. IV team notified via tiger text. New IV placed in R hand. Na level came back [address] Lorenzo called and d/c 3% NS infusion, D5W@70ml/hr ordered and hung. Pt resting comfortably in bed at this time. VSS. Care ongoing.
[2024-12-13] VITALS (18 sets, daily range): BP systolic 121–213; BP diastolic 48–82; PULSE 80–104; O2SAT 96; BMI 23.2
[2024-12-13 02:36] LABS: Sodium 129 mmol/L (135-145)
--- NOTE | 2024-12-13 04:13 | PTCARENOTE ---
Na 129, d5w infusion dc.
[2024-12-13] MEDS: SYNTHROID 112 MCG PO (05:57)
[2024-12-13 06:16] LABS: Hematocrit 32.1 % (37.0-47.0); Hemoglobin 11.1 g/dL (12.0-16.0); Mean Corp Hgb Conc. 34.6 g/dL (33.0-37.0); Mean Corpuscular Volume 88.4 fL (81.0-99.0); Platelet Count 193 10^3/uL (130-400); Red Cell Dist. Width 12.4 % (11.5-14.5)
[2024-12-13] MEDS: DIOVAN 40 MG PO ×2 (06:41→08:49)
[2024-12-13 06:43] LABS: ALT (SGPT) 10 U/L (0-35); AST (SGOT) 26 U/L (14-36); Albumin 4.2 g/dl (3.5-5.0); Alkaline Phosphatase 96 U/L (38-126); Blood Urea Nitrogen 15 mg/dl (7-17); Calcium 9.6 mg/dl (8.4-10.2); Carbon Dioxide 26 mmol/L (22-30); Chloride 99 mmol/L (98-107); Estimated Creatinine Clearance 51 ml/min; Glucose 90 mg/dl (70-99); Magnesium 1.9 mg/dl (1.6-2.3); Potassium 4.3 mmol/L (3.5-5.1); Sodium 130 mmol/L (135-145); Total Protein 7.4 g/dl (6.3-8.2); eGFR > 60.00
[2024-12-13] MEDS: SINEMET 25-100 1.5 TABLET PO ×4 (08:48→21:24)
[2024-12-13] MEDS: OSCAL CAL 500 500 MG PO (08:48)
[2024-12-13] MEDS: TOPROL XL 100 MG PO (08:48)
[2024-12-13] MEDS: PRADAXA 150 MG PO ×2 (08:49→21:19)
[2024-12-13] MEDS: TIKOSYN 250 MCG PO ×2 (08:50→21:24)
[2024-12-13] MEDS: IMDUR (EXTENDED RELEASE) 60 MG PO (08:50)
--- NOTE | 2024-12-13 11:35 | W.PN.NEPH.PH ---
Today's Communication / Plan
-
Maintain 40 ounce fluid restriction
No more hypertonic saline today
Follow-up BMP in a.m.
Assessment/Plan
-
IMP:
Unintentional Overdose
Hyponatremia
Benign Hypertension
Recent admission for hypertensive encephalopathy.
Persistent Atrial Fibrillation
ASCVD
Chronic Normocytic Anemia
Hypothyroidism
Parkinson's Disease
Plan:
A/w unintentional OD of multiple meds
Hyponatremia new this time sodium now up to 130 after 3% given on 12/12
U osmo high at 251, U na low 27 with poor solute intake
note she is on SSRI -took extra dose on 12/11
recent TSH was low, LT4 adjusted in October
goal correction was slightly liberal assuming it is acute onset based on symp
encourage solute intake
BP now rising , oral anti-htns back on
d/w primary and pt
-
-
Date of Service: December 13, 2024
CC / HPI / ROS
-
Chief Complaint:
Hyponatremia
History of Present Illness:
Serum sodium level up to 130 following hypertonic saline administration on 12/12/2024
Hemodynamically stable blood pressure elevated
Review of Systems:
Nonoliguric
Labs
-
Labs:
WBC 6.4 10^3/uL (4.8-10.8) 12/13/24 05:52
RBC 3.63 10^6/uL (4.20-5.40) L 12/13/24 05:52
Hgb 11.1 g/dL (12.0-16.0) L 12/13/24 05:52
Hct 32.1 % (37.0-47.0) L 12/13/24 05:52
Plt Count 193 10^3/uL (130-400) 12/13/24 05:52
Sodium 130 mmol/L (135-145) L 12/13/24 05:52
Potassium 4.3 mmol/L (3.5-5.1) 12/13/24 05:52
Chloride 99 mmol/L (98-107) 12/13/24 05:52
Carbon Dioxide 26 mmol/L (22-30) 12/13/24 05:52
BUN 15 mg/dl (7-17) 12/13/24 05:52
Creatinine 0.6 mg/dL (0.6-1.0) 12/13/24 05:52
eGFR > 60.00 12/13/24 05:52
Glucose 90 mg/dl (70-99) 12/13/24 05:52
Calcium 9.6 mg/dl (8.4-10.2) 12/13/24 05:52
Albumin 4.2 g/dl (3.5-5.0) 12/13/24 05:52
Physical Exam
-
Vital Signs:
Vital Signs
Temp Pulse Resp BP Pulse Ox
97.2 F 70 16 167/82 94
12/13/24 07:30 12/13/24 10:00 12/13/24 10:00 12/13/24 10:00 12/13/24 10:00
Cardiovascular:: Regular rate and rhythm
Respiratory:: Bilateral: CTA
Lung Excursion:: Normal
Abdomen:: Nontender and Soft
Bowel Sounds:: Normal
Extremity Edema:: None: Bilateral:
Mcallister Catheter: No
--- NOTE | 2024-12-13 12:13 | W.PN.HOSP.TC ---
Today's Communication/Plan
-
Restart meds. Monitor sodium
Assessment / Plan
Assessment / Plan
Physical exam:
General: No acute distress
HEENT: Normocephalic, Atraumatic and Moist Mucous Membranes
Respiratory: Clear to Auscultation; Negative Wheezes, Rales or Rhonchi
Cardiac: Irregular rate and rhythm, systolic murmur, and S1/S2
GI: Soft, Nontender and Nondistended
Musculoskeletal: No Clubbing, No Cyanosis and No Edema
Neuro: Awake, Alert and Oriented, no neurological deficit
Psych: Calm
A/P:
Unintentional Overdose
-Improving
-Will resume most of her medications today on 12/13 and reevaluate.
-PT OT
-These are the medications ingested:
#4 of Sinemet 25-100 mg tabs
#5 of Pantoprazole 20 mg tablet
#1 of Atorvastatin 80 mg tab
#3 of Isosorbide dinitrate 60 mg tab
#6 of Dabigatran 150 mg tabs
#4 of Dofetilide 250 mcg capsules
#5 of Ursodiol 300 mg capsule
#4 of Valsartan 80 mg tabs
#3 of Sertraline 25 mg tabs
Hyponatremia
- Given 3% saline followed by hypotonic to avoid rapid correction
- Nephrology following
- Latest sodium 130
Benign Hypertension
- Recent admission for hypertensive encephalopathy.
- Restart all antihypertensives today
- On IV Lopressor as needed
Persistent Atrial Fibrillation
- Stable.
- Resume rate control, anticoagulation, and antiarrhythmics
ASCVD
- Stable
Chronic Normocytic Anemia
- Stable
Hypothyroidism
- Recent dose adjustment during prior visit.
- Continue T4 supplementation.
Parkinson's Disease
- Resume Sinemet today
DVT Prophylaxis: Pradaxa
Code Status: Full code
Time spent 35 minutes
Anticipated Discharge: 24 - 48 hours
Subjective/Interval History
-
Date of Service: December 13, 2024
Patient feels better today. No chest pain or shortness of breath.
Objective Data
-
Labs:
Laboratory Results
12/13/24 12/13/24
01:53 05:52
WBC 6.4
Hgb 11.1 L
Hct 32.1 L
Plt Count 193
Sodium 129 L 130 L
Potassium 4.3
Chloride 99
Carbon Dioxide 26
BUN 15
Creatinine 0.6
Glucose 90
Calcium 9.6
Total Bilirubin 0.7
AST 26
ALT 10
Alkaline Phosphatase 96
Vital Signs:
Vital Signs
Temp Pulse Resp BP Pulse Ox
98.2 F 70 16 167/82 94
12/13/24 11:05 12/13/24 10:00 12/13/24 10:00 12/13/24 10:00 12/13/24 10:00
I&O
12/12/24 12/13/24 12/14/24
06:59 06:59 06:59
Intake Total 670 / 670
Balance 670 / 670
--- NOTE | 2024-12-13 12:28 | CM ---
Patient is known to [facility] and anticipates that she will go home with [facility] and private caregivers.
--- NOTE | 2024-12-13 12:43 | PTCARENOTE ---
Assumed care of patient of patient at beginning of this shift from previous RN. IVF capped by night nurse however order remained. Confirmed with Dr Mera that IVF are to remain off; he will d/c order. Meds restarted and given. See worklist for
full assessment and vital signs.
Patient transferred to [facility] with belongings; report given to Colby. Daughter and granddaughter at bedside and updated; granddaughter took all belongings to patient's new room.
[2024-12-13] MEDS: PROCARDIA XL (EXTENDED RELEASE) 30 MG PO (17:03)
[2024-12-13] MEDS: TOPROL XL 50 MG PO (21:23)
[2024-12-13] MEDS: LIPITOR 80 MG PO (21:23)
[2024-12-13] MEDS: TYLENOL 650 MG PO (21:31)
[2024-12-14] VITALS (7 sets, daily range): BP systolic 118–194; BP diastolic 48–72; BMI 22.1
[2024-12-14] MEDS: SYNTHROID 112 MCG PO (05:44)
[2024-12-14] MEDS: TYLENOL 650 MG PO ×2 (05:47→21:56)
[2024-12-14 08:04] LABS: Hematocrit 32.4 % (37.0-47.0); Hemoglobin 10.8 g/dL (12.0-16.0); Mean Corp Hgb Conc. 33.3 g/dL (33.0-37.0); Mean Corpuscular Volume 92.0 fL (81.0-99.0); Platelet Count 205 10^3/uL (130-400); Red Cell Dist. Width 12.9 % (11.5-14.5)
[2024-12-14 08:37] LABS: Blood Urea Nitrogen 12 mg/dl (7-17); Calcium 9.2 mg/dl (8.4-10.2); Carbon Dioxide 30 mmol/L (22-30); Chloride 98 mmol/L (98-107); Estimated Creatinine Clearance 44 ml/min; Glucose 81 mg/dl (70-99); Potassium 4.6 mmol/L (3.5-5.1); Sodium 131 mmol/L (135-145); eGFR > 60.00
[2024-12-14] MEDS: TIKOSYN 250 MCG PO ×2 (09:46→20:02)
[2024-12-14] MEDS: SINEMET 25-100 1.5 TABLET PO ×4 (09:46→21:27)
[2024-12-14] MEDS: TOPROL XL 100 MG PO (09:47)
[2024-12-14] MEDS: IMDUR (EXTENDED RELEASE) 60 MG PO (09:47)
[2024-12-14] MEDS: DIOVAN 80 MG PO (09:47)
[2024-12-14] MEDS: OSCAL CAL 500 500 MG PO (09:47)
[2024-12-14] MEDS: PRADAXA 150 MG PO ×2 (09:47→19:56)
--- NOTE | 2024-12-14 10:01 | W.PN.HOSP.TC ---
Today's Communication/Plan
-
Monitor sodium
Assessment / Plan
Assessment / Plan
Physical exam:
General: No acute distress
HEENT: Normocephalic, Atraumatic and Moist Mucous Membranes
Respiratory: Clear to Auscultation; Negative Wheezes, Rales or Rhonchi
Cardiac: Irregular rate and rhythm, systolic murmur, and S1/S2
GI: Soft, Nontender and Nondistended
Musculoskeletal: No Clubbing, No Cyanosis and No Edema
Neuro: Awake, Alert and Oriented, no neurological deficit
Psych: Calm
A/P:
Unintentional Overdose
-Improving
-Resumed most of her medications on 12/13 and reevaluate.
-PT OT
-These are the medications ingested:
#4 of Sinemet 25-100 mg tabs
#5 of Pantoprazole 20 mg tablet
#1 of Atorvastatin 80 mg tab
#3 of Isosorbide dinitrate 60 mg tab
#6 of Dabigatran 150 mg tabs
#4 of Dofetilide 250 mcg capsules
#5 of Ursodiol 300 mg capsule
#4 of Valsartan 80 mg tabs
#3 of Sertraline 25 mg tabs
Hyponatremia
- Given 3% saline followed by hypotonic to avoid rapid correction
- Nephrology following
- Latest sodium 131
- Discussed about restarted on discontinue completely SSRI and patient feels that she has not had significant improvement while she has been on it for a year and a half so we decided to completely discontinue.
- Recheck sodium in a.m. and if remains stable possible discharge
Benign Hypertension
- Recent admission for hypertensive encephalopathy.
- Restart all antihypertensives today
- On IV Lopressor as needed
Persistent Atrial Fibrillation
- Stable.
- Resume rate control, anticoagulation, and antiarrhythmics
ASCVD
- Stable
Chronic Normocytic Anemia
- Stable
Hypothyroidism
- Recent dose adjustment during prior visit.
- Continue T4 supplementation.
Parkinson's Disease
- Resume Sinemet today
DVT Prophylaxis: Pradaxa
Code Status: Full code
Anticipated Discharge: Within 24 hours
Subjective/Interval History
-
Date of Service: December 14, 2024
Patient feels better overall. No chest pain or shortness of breath
Objective Data
-
Labs:
Laboratory Results
12/14/24
06:36
WBC 6.8
Hgb 10.8 L
Hct 32.4 L
Plt Count 205
Sodium 131 L
Potassium 4.6
Chloride 98
Carbon Dioxide 30
BUN 12
Creatinine 0.7
Glucose 81
Calcium 9.2
Vital Signs:
Vital Signs
Temp Pulse Resp BP Pulse Ox
97.6 F 97 16 194/72 96
12/14/24 03:00 12/14/24 07:00 12/14/24 07:00 12/14/24 07:00 12/14/24 07:00
I&O
12/13/24 12/14/24 12/15/24
06:59 06:59 06:59
Intake Total 670 / 670 240 / 240
Balance 670 / 670 240 / 240
--- NOTE | 2024-12-14 12:39 | W.PN.NEPH.PH ---
Today's Communication / Plan
-
follow bmp
maintain FR 40oz
Assessment/Plan
-
IMP:
Unintentional Overdose
Hyponatremia
Benign Hypertension
Recent admission for hypertensive encephalopathy.
Persistent Atrial Fibrillation
ASCVD
Chronic Normocytic Anemia
Hypothyroidism
Parkinson's Disease
Plan:
A/w unintentional OD of multiple meds
Hyponatremia new this time sodium now up to 131 after 3% given on 12/12
U osmo high at 251, U na low 27 with poor solute intake
note she is on SSRI -took extra dose on 12/11
recent TSH was low, LT4 adjusted in October
goal correction was slightly liberal assuming it is acute onset based on symp
encourage solute intake
BP now rising , oral anti-htns back on
d/w primary and pt
-
-
Date of Service: December 14, 2024
CC / HPI / ROS
-
Chief Complaint:
Hyponatremia
History of Present Illness:
Serum sodium level up to 131 following hypertonic saline administration on 12/12/2024
Hemodynamically stable blood pressure elevated
Review of Systems:
Nonoliguric
Labs
-
Labs:
WBC 6.8 10^3/uL (4.8-10.8) 12/14/24 06:36
RBC 3.52 10^6/uL (4.20-5.40) L 12/14/24 06:36
Hgb 10.8 g/dL (12.0-16.0) L 12/14/24 06:36
Hct 32.4 % (37.0-47.0) L 12/14/24 06:36
Plt Count 205 10^3/uL (130-400) 12/14/24 06:36
Sodium 131 mmol/L (135-145) L 12/14/24 06:36
Potassium 4.6 mmol/L (3.5-5.1) 12/14/24 06:36
Chloride 98 mmol/L (98-107) 12/14/24 06:36
Carbon Dioxide 30 mmol/L (22-30) 12/14/24 06:36
BUN 12 mg/dl (7-17) 12/14/24 06:36
Creatinine 0.7 mg/dL (0.6-1.0) 12/14/24 06:36
eGFR > 60.00 12/14/24 06:36
Glucose 81 mg/dl (70-99) 12/14/24 06:36
Calcium 9.2 mg/dl (8.4-10.2) 12/14/24 06:36
Albumin 4.2 g/dl (3.5-5.0) 12/13/24 05:52
Physical Exam
-
Vital Signs:
Vital Signs
Temp Pulse Resp BP Pulse Ox
97.6 F 97 16 194/72 96
12/14/24 03:00 12/14/24 07:00 12/14/24 07:00 12/14/24 07:00 12/14/24 07:00
Cardiovascular:: Regular rate and rhythm
Respiratory:: Bilateral: CTA
Lung Excursion:: Normal
Abdomen:: Nontender and Soft
Bowel Sounds:: Normal
Extremity Edema:: None: Bilateral:
Mcallister Catheter: No
[2024-12-14] MEDS: PROCARDIA XL (EXTENDED RELEASE) 30 MG PO (16:44)
[2024-12-14] MEDS: LIPITOR 80 MG PO (19:59)
[2024-12-14] MEDS: TOPROL XL 50 MG PO (21:27)
[2024-12-15 03:00] VITALS: BP 178/67
[2024-12-15] MEDS: SYNTHROID 112 MCG PO ×2 (05:59→06:01)
[2024-12-15 07:00] VITALS: BP 155/70
[2024-12-15] MEDS: PRADAXA 150 MG PO (07:52)
[2024-12-15] MEDS: TIKOSYN 250 MCG PO (07:52)
[2024-12-15] MEDS: SINEMET 25-100 1.5 TABLET PO (07:54)
[2024-12-15] MEDS: IMDUR (EXTENDED RELEASE) 60 MG PO (07:55)
[2024-12-15] MEDS: OSCAL CAL 500 500 MG PO (07:55)
[2024-12-15] MEDS: DIOVAN 80 MG PO (07:55)
[2024-12-15] MEDS: TOPROL XL 100 MG PO (07:55)
--- NOTE | 2024-12-15 08:23 | W.PN.HOSP.TC ---
Today's Communication/Plan
-
Discharge planning
Assessment / Plan
Assessment / Plan
Physical exam:
General: No acute distress
HEENT: Normocephalic, Atraumatic and Moist Mucous Membranes
Respiratory: Clear to Auscultation; Negative Wheezes, Rales or Rhonchi
Cardiac: Irregular rate and rhythm, systolic murmur, and S1/S2
GI: Soft, Nontender and Nondistended
Musculoskeletal: No Clubbing, No Cyanosis and No Edema
Neuro: Awake, Alert and Oriented, no neurological deficit
Psych: Calm
A/P:
Unintentional Overdose
-Improving
-Resumed most of her medications since 12/13 and reevaluate. Patient doing well overall. Plan to discharge home today
-PT OT
-These are the medications ingested:
#4 of Sinemet 25-100 mg tabs
#5 of Pantoprazole 20 mg tablet
#1 of Atorvastatin 80 mg tab
#3 of Isosorbide dinitrate 60 mg tab
#6 of Dabigatran 150 mg tabs
#4 of Dofetilide 250 mcg capsules
#5 of Ursodiol 300 mg capsule
#4 of Valsartan 80 mg tabs
#3 of Sertraline 25 mg tabs
Hyponatremia
- Given 3% saline followed by hypotonic to avoid rapid correction
- Nephrology following
- Latest sodium today 134
- Discussed about restarted on discontinue completely SSRI and patient feels that she has not had significant improvement while she has been on it for a year and a half so we decided to completely discontinue.
- Recheck sodium in a.m. and if remains stable possible discharge
Benign Hypertension
- Recent admission for hypertensive encephalopathy.
- Restart all antihypertensives today
- On IV Lopressor as needed
Persistent Atrial Fibrillation
- Stable.
- Resume rate control, anticoagulation, and antiarrhythmics
ASCVD
- Stable
Chronic Normocytic Anemia
- Stable
Hypothyroidism
- Recent dose adjustment during prior visit.
- Continue T4 supplementation.
Parkinson's Disease
- Resume Sinemet today
DVT Prophylaxis: Pradaxa
Code Status: Full code
Anticipated Discharge: Today
Subjective/Interval History
-
Date of Service: December 15, 2024
She is feeling tired today and some stomach indigestion. No chest pain or shortness of breath. Blood pressure elevated this morning but improved after medications.
Objective Data
-
Labs:
Laboratory Results
12/15/24
07:17
Sodium Pending
Potassium Pending
Chloride Pending
Carbon Dioxide Pending
BUN Pending
Creatinine Pending
Glucose Pending
Calcium Pending
Vital Signs:
Vital Signs
Temp Pulse Resp BP Pulse Ox
97.5 F 71 16 178/67 95
12/15/24 03:00 12/15/24 03:00 12/15/24 03:00 12/15/24 03:00 12/15/24 03:00
I&O
12/14/24 12/15/24 12/16/24
06:59 06:59 06:59
Intake Total 240 / 240 360 / 360
Balance 240 / 240 360 / 360
[2024-12-15 08:40] LABS: Blood Urea Nitrogen 14 mg/dl (7-17); Calcium 9.6 mg/dl (8.4-10.2); Carbon Dioxide 29 mmol/L (22-30); Chloride 100 mmol/L (98-107); Estimated Creatinine Clearance 51 ml/min; Glucose 88 mg/dl (70-99); Potassium 4.9 mmol/L (3.5-5.1); Sodium 134 mmol/L (135-145); eGFR > 60.00
[2024-12-15] MEDS: PROTONIX 20 MG PO (08:52)
[2024-12-15] MEDS: CARAFATE 1 GRAM PO (09:51)
[2024-12-15 11:00] VITALS: BP 127/49
--- NOTE | 2024-12-15 11:59 | CM ---
Patient is for discharge to home with [facility].
Plan; Home with [facility].
--- NOTE | 2024-12-15 12:20 | W.PN.NEPH.PH ---
Today's Communication / Plan
-
Stable for discharge on home medications
and 50oz fluid restriction
Assessment/Plan
-
IMP:
Unintentional Overdose
Hyponatremia
Benign Hypertension
Recent admission for hypertensive encephalopathy.
Persistent Atrial Fibrillation
ASCVD
Chronic Normocytic Anemia
Hypothyroidism
Parkinson's Disease
Plan:
A/w unintentional OD of multiple meds
Hyponatremia new this time sodium now up to 134 after 3% given on 12/12
U osmo high at 251, U na low 27 with poor solute intake
note she is on SSRI -took extra dose on 12/11
recent TSH was low, LT4 adjusted in October
encourage solute intake
BP now rising , oral anti-htns back on
Stable for discharge from nephrology standpoint, discharge on FR of 50oz daily
-
-
Date of Service: December 15, 2024
CC / HPI / ROS
-
Chief Complaint:
Hyponatremia
History of Present Illness:
Serum sodium level up to 134 following hypertonic saline administration on 12/12/2024
Hemodynamically stable blood pressure elevated
Review of Systems:
Nonoliguric
Labs
-
Labs:
WBC 6.8 10^3/uL (4.8-10.8) 12/14/24 06:36
RBC 3.52 10^6/uL (4.20-5.40) L 12/14/24 06:36
Hgb 10.8 g/dL (12.0-16.0) L 12/14/24 06:36
Hct 32.4 % (37.0-47.0) L 12/14/24 06:36
Plt Count 205 10^3/uL (130-400) 12/14/24 06:36
Sodium 134 mmol/L (135-145) L 12/15/24 07:17
Potassium 4.9 mmol/L (3.5-5.1) 12/15/24 07:17
Chloride 100 mmol/L (98-107) 12/15/24 07:17
Carbon Dioxide 29 mmol/L (22-30) 12/15/24 07:17
BUN 14 mg/dl (7-17) 12/15/24 07:17
Creatinine 0.6 mg/dL (0.6-1.0) 12/15/24 07:17
eGFR > 60.00 12/15/24 07:17
Glucose 88 mg/dl (70-99) 12/15/24 07:17
Calcium 9.6 mg/dl (8.4-10.2) 12/15/24 07:17
Albumin 4.2 g/dl (3.5-5.0) 12/13/24 05:52
Physical Exam
-
Vital Signs:
Vital Signs
Temp Pulse Resp BP Pulse Ox
97.8 F 71 16 127/49 96
12/15/24 11:00 12/15/24 11:00 12/15/24 11:00 12/15/24 11:00 12/15/24 11:00
Cardiovascular:: Regular rate and rhythm
Respiratory:: Bilateral: CTA
Lung Excursion:: Normal
Abdomen:: Nontender and Soft
Bowel Sounds:: Normal
Extremity Edema:: None: Bilateral:
Mcallister Catheter: No
--- NOTE | 2024-12-15 12:36 | W.DCSUMMARY ---
Discharge Summary
Discharge Data
Date of Admission: 12/12/24
Date of Discharge: 12/15/24
Total time spent discharging patient (in min): 35
-
Pending Results: No
Hospital Course
Patient 83 years old female with history of A-fib, hypertension, depression, Parkinson's, came into the after unintentional overdose of multiple of her medications and hyponatremia. All of her medications were held for 24 to 48 hours. Nephrology
consulted. She had 3% saline given. We discontinued her SSRI. We restarted her medications and she has tolerated all her medications and monitor her hemoglobin and renal function and electrolytes. She did well overall. Participated with PT and
OT. Patient is back to her baseline and porter sample case consulted for safe discharge in light of her issues with medications when she came in. Patient will be discharged in relatively stable condition today.
Discharge duration: 35 minutes
Discharge Plan
-
Patient Disposition: Home with Home Care
Discharge Diagnosis/Procedures: Unintentional drug overdose. Hyponatremia. Hypertension. History of persistent atrial fibrillation. History of Parkinson's disease.
Diet: Low Cholesterol
Activity: As tolerated
Blood Work: Please PCP to order CBC, BMP within 1 week
Referrals:
Florecita Valentine DO [Family Provider, Family Practice] - in less than 1 week
Prescriptions:
New
sucralfate 1 gram Tablet
1 g PO ACHS 14 Days Qty: 56 0RF
Continued
ursodiol 300 MG capsule
300 mg PO DAILY
ursodiol 300 MG capsule
600 mg PO HS
dabigatran etexilate [Pradaxa] 150 MG capsule
150 mg PO BID Qty: 60 1RF
isosorbide mononitrate 60 mg tablet extended release 24 hr
60 mg PO DAILY
metoprolol succinate 100 mg Tablet Extended Release 24 Hr
100 mg PO DAILY Qty: 30 0RF
cholecalciferol (vitamin D3) [Vitamin D3] 50 mcg (2,000 unit) Capsule
50 mcg PO DAILY
calcium carbonate 500 mg calcium (1,250 mg) Tablet
500 mg PO DAILY
pantoprazole [Protonix] 20 mg Tablet,Delayed Release (Dr/Ec)
20 mg PO BIDPRN PRN (Reason: gerd)
dofetilide 250 mcg capsule
250 mcg PO BID
metoprolol succinate 50 mg Tablet Extended Release 24 Hr
50 mg PO HS
valsartan 80 mg Tablet
80 mg PO DAILY
carbidopa-levodopa [Sinemet] 25-100 mg tablet
1.5 tab PO QID
nifedipine 30 mg Tablet Extended Release 24hr
30 mg PO QPM
acetaminophen 325 mg tablet
650 mg PO Q4HPRN MDD 3000 mg PRN (Reason: mild pain/MCGHEE/temp> 100F)
atorvastatin 80 mg Tablet
80 mg PO HS Qty: 0 0RF
cyanocobalamin (vitamin B-12) [Vitamin B-12] 1,000 mcg Tablet
1,000 mcg PO DAILY Qty: 0 0RF
levothyroxine [Synthroid] 112 mcg Tablet
112 mcg PO DAILY
cholecalciferol (vitamin D3) [Vitamin D3] 25 mcg (1,000 unit) Capsule
25 mcg PO DAILY
magnesium glycinate 100 mg Tablet
400 mg PO DAILY
Discontinued
sertraline [Zoloft] 25 mg Tablet
25 mg PO DAILY
Discharge Orders:
Discharge Patient (As Directed); Ordered 12/15/24
Ordered By: Oscar Gardiner
Discharge Date and Time
Discharge Date/Time: 12/15/24 14:12
Print Language: POLISH
== END 2024-12-15 14:12 | disposition home health service (06) | DRG 918 ==
LOC: 4 WEST ACU 02:53
PROVIDERS: Emergency Medicine; Specialist; ADMITTING PHYSICIAN Hospitalist; ATTENDING PHYSICIAN Hospitalist; CONSULT PHYSICIAN Internal Medicine; EMERGENCY PHYSICIAN Emergency Medicine; FAMILY PHYSICIAN Family Medicine
DX: T50.991A Poisoning by other drugs, medicaments and biological substances, accidental (unintentional), initial encounter (principal); I48.19 Other persistent atrial fibrillation; E87.1 Hypo-osmolality and hyponatremia; R11.0 Nausea; I10 Essential (primary) hypertension; I25.10 Atherosclerotic heart disease of native coronary artery without angina pectoris; D64.9 Anemia, unspecified; J44.9 Chronic obstructive pulmonary disease, unspecified; F32.A Depression, unspecified; E03.9 Hypothyroidism, unspecified; G20.A1 Parkinson's disease without dyskinesia, without mention of fluctuations; E78.00 Pure hypercholesterolemia, unspecified; K21.9 Gastro-esophageal reflux disease without esophagitis; Y92.009 Unspecified place in unspecified non-institutional (private) residence as the place of occurrence of the external cause; Z60.2 Problems related to living alone; Z87.891 Personal history of nicotine dependence; Z95.0 Presence of cardiac pacemaker; Z90.12 Acquired absence of left breast and nipple; Z86.73 Personal history of transient ischemic attack (TIA), and cerebral infarction without residual deficits; Z85.3 Personal history of malignant neoplasm of breast; Z91.148 Patient's other noncompliance with medication regimen for other reason; Z95.5 Presence of coronary angioplasty implant and graft; Z91.041 Radiographic dye allergy status; Z88.8 Allergy status to other drugs, medicaments and biological substances; Z91.048 Other nonmedicinal substance allergy status; Z79.890 Hormone replacement therapy
CPT/HCPCS: 80048; 80053; 80076; 83735; 83935; 84295; 84300; 84484; 85025; 85027; 85610; 85730; 86850; 86900; 86901; 93005; 97162; 97167

== ENCOUNTER 2025-02-17 08:25 | Inpatient (IN) | payer OTHER, SELFPAY ==
[2025-02-13 19:32] VITALS: BP 205/79
[2025-02-13 20:40] LABS: Hematocrit 34.7 % (37.0-47.0); Hemoglobin 11.5 g/dL (12.0-16.0); Mean Corp Hgb Conc. 33.1 g/dL (33.0-37.0); Mean Corpuscular Volume 89.4 fL (81.0-99.0); Nucleated Red Blood Cells % 0 %; Platelet Count 242 10^3/uL (130-400); Red Cell Dist. Width 13.4 % (11.5-14.5)
[2025-02-13 20:55] LABS: COVID-19 Antigen Negative (Negative)
[2025-02-13 20:59] LABS: ALT (SGPT) < 10 U/L (0-35); AST (SGOT) 20 U/L (14-36); Albumin 4.4 g/dl (3.5-5.0); Alkaline Phosphatase 102 U/L (38-126); Blood Urea Nitrogen 11 mg/dl (7-17); Calcium 9.6 mg/dl (8.4-10.2); Carbon Dioxide 29 mmol/L (22-30); Chloride 92 mmol/L (98-107); Glucose 127 mg/dl (70-99); Potassium 4.1 mmol/L (3.5-5.1); Sodium 127 mmol/L (135-145); Total Protein 7.2 g/dl (6.3-8.2); eGFR > 60.00
--- NOTE | 2025-02-13 21:13 | ED.GENMED ---
History of Present Illness
General
Chief Complaint: Weakness
Source: patient and family (Daughter)
Exam Limitations: none
Time Seen by Provider: 02/13/25 19:52
Nursing documentation reviewed up to this point in time: agreed with
History of Present Illness
History of Present Illness:
84-year-old female with history as noted significant for Parkinson's disease who presents to the ER with her daughter for evaluation of generalized weakness. Patient reports that symptoms have been worsening over the past week or so. She reports
that she has been tremendously fatigued and feels very weak�she states that today she could not even stand with the assistance of a walker. She has had progressive functional decline over the past few months and has been staying with her family
members recently as she is unable to function independently however given this relatively abrupt worsening of her functional state she was brought to the ER to be evaluated. She apparently complained of some nausea in triage but denied any nausea,
vomiting to me. She did say she had some loose stools about a week ago but none since. She denies abdominal pain. She has not had any URI symptoms or cough, shortness of breath or chest pain. She denies any dysuria but has had increased urinary
frequency recently. No hematuria, abdominal or flank pain noted. Denies fevers or chills. She denies any falls or any other acute complaints.
Past History
Past History
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
ED Past Surgical History: Cardiac (Pacemaker, PTCI) and Other (Mastectomy L, renal artery PTCI)
Social History
Tobacco: Former smoker
Alcohol: Occasional
Drug: None
Personal: Other
Living: alone
Employment: Retired
Family History
Family History: Other
Review of Systems
Review of Systems
All Other Systems: ROS reviewed and negative except as documented in HPI and ROS
Constitutional: Reports fatigue; Denies fever
EENT: Denies sore throat or runny nose
Respiratory: Denies cough or trouble breathing
Cardiac: Denies chest pain or palpitations
ABD/GI: Denies abdominal pain, nausea, vomiting or diarrhea (1 episode last week, resolved)
: Reports frequency; Denies dysuria or flank pain
Musculoskeletal: Denies neck pain or back pain
Neurological: Reports weakness; Denies headache
Phy Exam
Physical Exam
Physical Exam:
General: Awake, alert, oriented x3; no acute distress
Head: Normocephalic, atraumatic
Eyes: Conjunctiva normal, EOMI
Throat: Airway intact, handling secretions
Neck: Trachea midline, supple without meningismus
Lungs: Clear to auscultation bilaterally, no wheezing, rales, rhonchi
Heart: Regular rate and rhythm, no murmurs, gallops, or rubs appreciated
Abd: Soft, non distended, nontender
Neuro: Cranial nerves grossly intact, speech fluid, motor and sensory intact and symmetric in all extremities
Skin: No rash
Extremities: No edema in extremities, equal pulses in all extremities
Scores
Heart Failure Risk
Heart Failure Risk Score: Not Applicable
Heart Score for Chest Pain Patients
STEMI patient?: Not applicable
Withdrawal Assessment of Alcohol
Withdrawal Assessment Completed?: Not applicable
Course
Orders/Labs/Results
Orders:
Orders
02/13/25 19:59
Electrocardiogram (*1) Urgent
Reason for Study: Fatigue / Weakness
EKG- Treatment ONCE
Urinalysis Reflex To Culture Urgent
Date Specimen was Collected: 02/13/25
Time Specimen was Collected: 21:53
02/13/25 20:28
COVID-19 Antigen Urgent
Source: Nasal Swab
Complete Blood Count/With Diff Urgent
Comprehensive Metabolic Panel Urgent
Free T4 Urgent
TSH Reflex To Free T4 Urgent
Influenza A+B Rapid Molecular Urgent
MARYURI Source: Nasal Swab
Specimen Description:
02/13/25 21:13
Interrogate Pacemaker- Treatment ONCE
02/13/25 21:17
CR Chest - 2 Views Urgent
Comment:
Reason For Exam: weakness
02/13/25 21:55
Osmolality, Random Urine Urgent
Date Specimen was Collected: 02/13/25
Time Specimen was Collected: 21:53
Urinalysis Reflex To Culture Urgent
Date Specimen was Collected: 02/13/25
Time Specimen was Collected: 21:53
Urine Sodium Urgent
Date Specimen was Collected: 02/13/25
Time Specimen was Collected: 21:53
02/13/25 22:22
Carbidopa/Levodopa Cr [Sinemet Cr 50/200 (Extended Release)] 1 tablet PO NOW STA
02/13/25 22:23
0.9% Sodium Chloride 1000 ml [Nss] 1,000 ml IV BOLUS
Abnormal Lab Results
02/13/25 02/13/25
20:28 21:55
RBC 3.88 L 10^6/uL
(4.20-5.40)
Hgb 11.5 L g/dL
(12.0-16.0)
Hct 34.7 L %
(37.0-47.0)
Absolute Monos (auto) 1.2 H 10^3/uL
(0.1-0.6)
Lymphocytes % 19.4 L %
(20.5-51.1)
Monocytes % 16.5 H %
(1.7-9.3)
Sodium 127 L mmol/L
(135-145)
Chloride 92 L mmol/L
(98-107)
Glucose 127 H mg/dl
(70-99)
TSH (Reflex) 0.28 L uIU/ml
(0.47-4.68)
Free T4 2.49 H ng/dl
(0.78-2.19)
Urine Osmolality 259 L mOsm/kg
(300-900)
02/13/25 20:28
02/13/25 20:28
Vital Signs
Initial and Last Documented VS:
Initial Vital Signs
Temp Pulse Resp BP Pulse Ox
36.4 C 74 18 205/79 97
02/13/25 19:32 02/13/25 19:32 02/13/25 19:32 02/13/25 19:32 02/13/25 19:32
Last Documented Vital Signs
Temp Pulse Resp BP Pulse Ox
36.4 C 74 18 205/79 96
02/13/25 19:32 02/13/25 19:32 02/13/25 19:32 02/13/25 19:32 02/13/25 21:13
MDM/Problems Addressed
Differential Diagnosis Includes:
Wide differential diagnosis includes but not limited to: Deconditioning/functional decline due to Parkinson's, infection such as UTI or pneumonia or viral syndrome, anemia, electrolyte derangement, dehydration, polypharmacy, dysrhythmia //no focal
weakness or other neurologic symptoms to suggest that this is a stroke
MDM/Problems Addressed:
84-year-old female presents with acute on chronic generalized weakness over the past week. Only other specific symptom is an episode of loose stools last week as well as some increased urinary frequency recently. She is hypertensive here but rest
of vitals are normal. Physical exam is as above. Will send labs including a CBC and a CMP, thyroid studies, COVID and flu swabs. Will check urinalysis, chest x-ray, EKG. Will monitor closely reassess after the above.
Labs reviewed: CBC shows stable anemia, CMP shows hyponatremia to 127 acute on chronic. Glucose 127. Acceptable renal function. Marginal hyperthyroidism. Urine studies pending, added urine osmolality and urine sodium levels. She does appear
mildly hypovolemic with dry mucous membranes will provide some normal saline after sending urine. Will plan to admit for continued treatment�discussed case with hospitalist.
Chronic conditions affecting care:
Parkinson's
Acute Exacerbation and/or Progression of Chronic Illness:
Acutely hypertensive
Acute Exacerbation and/or Progression of Chronic Illness: HTN
*Pulse Oximetry
SaO2: 96
Oxygen Mode of Delivery: Room air
Patient hypoxic: no (96%)
*EKG
Interpreted by ED Provider?: Yes
Heart Rate: 71
Rhythm: other (Atrial paced rhythm)
*Critical Care Note
Total Time (30-74mins, 75-104mins- exclusive of procedures): Not Applicable
Data Reviewed
Review of Other/Old Records Reveals: Labs and Records
Source: patient and family
Patient Management
Discussion with other providers: Hospitalist (Discussed with hospitalist)
Escalation/DeEscalation of care consider admission/obs:
Admission indicated
ED Attending Note
-
Portions of this chart may have been created with voice recognition software.� Occasional wrong word or��sound alike� substitutions may have occurred due to the inherent limitations of voice recognition software.
Discharge Plan
Departure
Patient Disposition: Admit
Date of Disposition: 02/13/25
Time of Disposition: 22:22
Admit to doctor: [facility]
Presentation/result/management discussed w/ accepting MD/DO: Hospitalist
Discharge Problem:
Acute hyponatremia
Prescriptions:
No Action
ursodiol 300 MG capsule
600 mg PO AMHS
dabigatran etexilate [Pradaxa] 150 MG capsule
150 mg PO BID Qty: 60 1RF
isosorbide mononitrate 60 mg tablet extended release 24 hr
60 mg PO DAILY
metoprolol succinate 100 mg Tablet Extended Release 24 Hr
100 mg PO DAILY Qty: 30 0RF
cholecalciferol (vitamin D3) [Vitamin D3] 50 mcg (2,000 unit) Capsule
50 mcg PO DAILY
calcium carbonate 500 mg calcium (1,250 mg) Tablet
600 mg PO DAILY
pantoprazole [Protonix] 20 mg Tablet,Delayed Release (Dr/Ec)
20 mg PO BIDPRN PRN (Reason: gerd)
dofetilide 250 mcg capsule
250 mcg PO BID
metoprolol succinate 50 mg Tablet Extended Release 24 Hr
50 mg PO HS
valsartan 80 mg Tablet
80 mg PO DAILY
carbidopa-levodopa [Sinemet] 25-100 mg tablet
1.5 tab PO QID
Rx Instructions:
9a,1p,5p,9P
nifedipine 30 mg Tablet Extended Release 24hr
30 mg PO QPM
acetaminophen 325 mg tablet
650 mg PO Q4HPRN MDD 3000 mg PRN (Reason: mild pain/MCGHEE/temp> 100F)
atorvastatin 80 mg Tablet
80 mg PO HS Qty: 0 0RF
levothyroxine [Synthroid] 112 mcg Tablet
112 mcg PO DAILY
magnesium glycinate 100 mg Tablet
400 mg PO DAILY
sucralfate 1 gram Tablet
1 g PO ACHS 14 Days Qty: 56 0RF
ursodiol 300 mg Capsule
300 mg PO HS
Rx Instructions:
300 mg orally HS
sertraline 25 mg Tablet
25 mg PO AMHS
Referrals:
Florecita Valentine DO [Family Provider, Family Practice]
Interventions
Interventions:
*Risk Screen - Suicide Last Done: 02/13/25 19:35
*General Assessment Last Done: 02/13/25 19:32
*Neglect/Abuse Screening Last Done: 02/13/25 19:52
*ED- Fall Risk Assessment Last Done: 02/13/25 19:52
*ED COVID-19 Vaccine History Last Done: 02/13/25 19:52
ED- Cardiac Assessment Last Done: 02/13/25 19:52
ED- Neurological Assessment Last Done: 02/13/25 19:52
ED- Pulmonary Assessment Last Done: 02/13/25 19:52
Discharge Date and Time
Print Language: MALAY
[2025-02-13 21:48] VITALS: BP 180/70
[2025-02-13 22:21] LABS: Urine Character Clear (Clear)
[2025-02-13 22:47] LABS: Urine Red Blood Cell 0-2 /HPF (0-2)
[2025-02-13] MEDS: SINEMET CR 50/200 (EXTENDED RELEASE) 1 TABLET PO (22:48)
[2025-02-13 22:49] VITALS: BP 180/90
--- NOTE | 2025-02-13 23:17 | HPS.HSE ---
Addendum entered and electronically signed by Vel Ely DO 02/14/25 00:02:
Patient seen and examined independently. Agree with findings and plan as set forth by Doris Garcia PA-C.
Patient is an 84y F with PMH significant for ASCVD, A-Fib and hypothyroidism who presents to ED complaining of generalized weakness and fatigue. Patient noted to have recurrent hyponatremia in the ED and will be hospitalized for further
evaluation. Upon review of pharmacy data / discussion with patient, it seems that several med changes / instructions were not carried out.
T4 supplement (changed in October) was never changed and has remained at 112mcg / day.
Patient has not been limiting fluids to 50oz daily as advised. In fact, she has been making an effort to drink 'plenty' of fluids - typically amounting to 5-6 large glasses per day.
Patient also did not stop her sertraline which was discontinued during her most recent admission.
Ass:
Hyponatremia
Generalized Fatigue secondary to the above
ASCVD
Persistent A-Fib
Benign Hypertension
Parkinson's Disease
Primary Biliary Cirrhosis
Plan:
Observe overnight for further evaluation and treatment.
Stop sertraline, reinstitute fluid restriction and follow for gradual improvement in Na levels.
Decrease T4 supplementation to previously suggested 100mcg daily.
Continue other usual medications without changes.
Follow for improvement in malaise / fatigue.
Original Note:
Family Physician
-
Family Physician: Florecita Valentine
Chief Complaint
-
Weakness
History of Present Illness
Patient is a 84 y/o female past medical history of ASCVD, persistent atrial fibrillation, hypertension, SSS s/p PM, Parkinson's Disease and Hypothyroidism who presents with weakness. Patient reports symptoms have been worsening over the past few
weeks, and she feels very fatigued. Today she was unable to stand even with the assistance of walker and she is not longer able to function independently. Work-up in the emergency department revealed sodium of 127. Patient reports she has been
trying to increase her fluid consumption and has been drinking about 80 ounces of fluid per day. Patient also notes she was started back her Zoloft which had been stopped during a prior admission.
Medical History
Past Medical History
Past Medical History: Reports Other
Additional Past Medical History:
ASCVD (CAD, Carotid Stenosis, Renal Artery Stenosis)
Persistent Atrial Fibrillation
Hypertension
SSS s/p PPM
Parkinson's Disease
Hypothyroidism
Breast Cancer
GERD
Primary Biliary Cirrhosis
Past Surgical History: Reports Other
Additional Past Surgical History:
PTCA with Stent
Renal Artery PCI
Left Mastectomy
PPM Placement
Bilateral CEA
Social History
Tobacco: Former Smoker
Alcohol: Occasional
Drug: None
Family History
Family History: Not pertinent
Allergies / Home Medications
Allergies reflects when Allergies were last updated in [facility].
Home Medications with original date entered in [facility]
Allergy/Medication List:
Allergies
Allergy/AdvReac Type Severity Reaction Status Date / Time
adhesive Allergy Redness, Verified 11/18/24 18:52
rash
amiodarone Allergy tremors Verified 11/18/24 18:52
diltiazem Allergy Rash Verified 11/18/24 18:52
hydralazine (Hydralazine) Allergy RAMSEY, Verified 11/18/24 18:52
Fatigue,
Dizziness
Iodinated Contrast Media Allergy Rash and Verified 11/18/24 18:52
(Iodinated Contrast Media - Warmth
IV Dye)
iodine (Iodine) Allergy rash with Verified 11/18/24 18:52
ivp dye
omeprazole Allergy Nausea Verified 11/18/24 18:52
spironolactone Allergy kidney Verified 11/18/24 18:52
failure-
Hypercalcemia
Home Medications
ursodiol 300 mg capsule 600 mg PO HS Urinary issue 01/23/17
dabigatran etexilate 150 mg capsule (Pradaxa) 150 mg PO BID #60 caps 08/04/21
isosorbide mononitrate 60 mg tablet,extended release 24 hr 60 mg PO DAILY CHEST PAIN 05/18/22
metoprolol succinate 100 mg tablet,extended release 24 hr 100 mg PO DAILY #30 tabs 05/28/22
cholecalciferol (vitamin D3) 50 mcg (2,000 unit) capsule (Vitamin D3) 50 mcg PO DAILY Supplement 06/21/23
calcium carbonate 600 mg PO DAILY Supplement 12/07/23
pantoprazole 20 mg tablet,delayed release (Protonix) 20 mg PO BID 02/09/24
dofetilide 250 mcg capsule 250 mcg PO BID Arrhythmia 02/16/24
metoprolol succinate 50 mg tablet,extended release 24 hr 50 mg PO HS Blood Pressure 06/29/24
valsartan 80 mg tablet 80 mg PO DAILY Blood Pressure 06/29/24
carbidopa 25 mg-levodopa 100 mg tablet (Sinemet) 1 tab PO 0900,1300,1700,2100 Neurological Condition 11/08/24
acetaminophen 325 mg tablet 650 mg PO Q4HPRN PRN mild pain/MCGHEE/temp> 100F 11/18/24
nifedipine 30 mg tablet,extended release 24 hr 30 mg PO QPM Blood Pressure 11/18/24
atorvastatin 80 mg tablet 80 mg PO HS #0 tabs 11/21/24
levothyroxine 112 mcg tablet (Synthroid) 112 mcg PO DAILY 12/11/24
magnesium glycinate 100 mg (as glycinate) tablet 400 mg PO DAILY 12/12/24
carbidopa ER 50 mg-levodopa 200 mg tablet,extended release 1 tab PO DAILY@0000 02/13/25
clonidine HCl 0.1 mg tablet 0.05 mg PO Q6HPRN PRN SBP>160 02/13/25
cyanocobalamin (vitamin B-12) 1,000 mcg tablet (Vitamin B-12) 1,000 mcg PO DAILY 02/13/25
sertraline 25 mg tablet 25 mg PO DAILY 02/13/25
ursodiol 300 mg capsule 300 mg PO DAILY 02/13/25
Review of Systems
-
A 12 point ROS was completed and negative except as noted: Yes
Constitutional: Denies Fever
Respiratory: Denies Cough or Trouble Breathing
Cardiac: Denies Chest Pain or Palpitations
Abdomen/GI: Reports Nausea
Physical Exam
Vital Signs
Vital Signs
Temp Pulse Resp BP Pulse Ox
97.6 F 84 20 180/90 98
02/13/25 19:32 02/13/25 22:49 02/13/25 22:49 02/13/25 22:49 02/13/25 22:49
Physical Exam
General: Comfortable and Conversant
HEENT: Anicteric and Moist mucous membranes
Respiratory: Clear and Non Labored Respirations
Cardiac: S1/S2 and Regular Rhythm
GI: Soft and Non Tender
Rectal: Deferred by Provider
Musculoskeletal: No Clubbing, No Cyanosis and No Edema
Skin: Warm and Dry
Neuro: Awake, Alert, Oriented and Nonfocal/grossly intact
Psych: Calm
Laboratory Results
-
02/13/25 20:28
02/13/25 20:28
Laboratory Results
Total Bilirubin 0.6 mg/dl (0.2-1.3) 02/13/25 20:28
AST 20 U/L (14-36) 02/13/25 20:28
ALT < 10 U/L (0-35) 02/13/25 20:28
Alkaline Phosphatase 102 U/L (38-126) 02/13/25 20:28
Data Reviewed
-
Lab Data: Labs Reviewed by me
Impression/Plan
-
Hyponatremia, suspect related to excess fluid intake and resumption of SSRI
-Resume fluid restriction 48oz per day
-Stop Zoloft
-Recheck sodium in AM
Hyponatremia
-TSH is suppressed with elevated Free T4
-Previously patient instructed to decreased levothyroxine to 100mcg Daily though it appears she is back on 112mcg Daily
-Start levothyroxine 100mcg Daily
ASCVD (CAD, Carotid Stenosis, Renal Artery Stenosis)
-Continue atorvastatin
-Continue isosorbide mononitrate
Persistent Atrial Fibrillation
SSS s/p PM
-Continue Pradaxa
-Continue Tikosyn and Metoprolol
Hypertension
-Continue isosorbide mononitrate, metoprolol, nifedipine and valsartan
Parkinson's Disease
-Continue Sinemet
Primary Biliary Cirrhosis
-Continue ursodiol
GERD
-Continue Protonix
DVT proph: Pradaxa
Code Status: Full Code
[2025-02-14] VITALS (10 sets, daily range): BP systolic 127–182; BP diastolic 38–76; PULSE 71; O2SAT 95; BMI 21.9
[2025-02-14] MEDS: CATAPRES 0.05 MG PO (01:13)
[2025-02-14] MEDS: SYNTHROID 100 MCG PO (05:29)
--- NOTE | 2025-02-14 07:14 | PTCARENOTE ---
Patient arrived on unit @0018 vi stretcher from ED. Patient pulled over with assist x3 to bed. Patient AAOx3, denies any pain or discomfort. Skin assessment completed, oriented to unit, call lopez within reach.
[2025-02-14] MEDS: OSCAL CAL 500 600 MG PO (08:53)
[2025-02-14] MEDS: PROTONIX 20 MG PO ×2 (08:53→20:20)
[2025-02-14] MEDS: DIOVAN 80 MG PO (08:53)
[2025-02-14] MEDS: IMDUR (EXTENDED RELEASE) 60 MG PO (08:53)
[2025-02-14] MEDS: ACTIGALL 300 MG PO (08:54)
[2025-02-14] MEDS: TIKOSYN 250 MCG PO ×2 (08:54→20:20)
[2025-02-14] MEDS: TOPROL XL 100 MG PO (08:54)
[2025-02-14] MEDS: SINEMET 25-100 1 TABLET PO ×4 (08:57→22:35)
[2025-02-14] MEDS: PRADAXA 150 MG PO ×2 (08:57→20:19)
[2025-02-14 09:37] LABS: Blood Urea Nitrogen 11 mg/dl (7-17); Calcium 9.3 mg/dl (8.4-10.2); Carbon Dioxide 26 mmol/L (22-30); Chloride 98 mmol/L (98-107); Estimated Creatinine Clearance 48 ml/min; Glucose 80 mg/dl (70-99); Potassium 4.6 mmol/L (3.5-5.1); Sodium 127 mmol/L (135-145); eGFR > 60.00
--- NOTE | 2025-02-14 10:00 | W.PN.HOSP.TC ---
Today's Communication/Plan
-
Fluid restriction
Case management consult
nephrology consult
PT/OT
Assessment / Plan
Assessment / Plan
Gen-AAOx3, NAD
HEENT-NC, AT, anicteric, clear oral mm
Neck-supple
CV-reg, no M, +S1/S2
Lungs-clear B/L
Abd-soft, NT, ND
Ext-no edema
Musculoskeletal-no cyanosis, clubbing
Skin-warm and dry
Neuro-grossly non-focal
Psych-calm, cooperative
Recurrent hyponatremia -suspect related to ongoing use of sertraline as well as polydipsia.
Sertraline discontinued. Fluid restriction. Sodium remains low at 127. Consult nephrology.
CAD
Persistent atrial fibrillation -Pradaxa.
Essential hypertension -stable.
Hyperlipidemia -atorvastatin.
Hypothyroidism -levothyroxine dose reduced to 100 mcg daily given elevated free T4, suppressed TSH.
Parkinson disease -continue Sinemet.
Primary biliary cirrhosis
Full code
Dispo -recommend assisted living facility on discharge, I do not feel that she can safely manage on her own especially in light of her proven inability to follow medication change orders as prescribed recently.
Patient was also recently hospitalized in November of this year with unintentional overdose of multiple medications.
Updated case management.
Anticipated Discharge: > 48 hours
Subjective/Interval History
-
Date of Service: February 14, 2025
Patient seen and examined. No new complaints.
Objective Data
-
Labs:
Laboratory Results
02/14/25
07:22
Sodium 127 L
Potassium 4.6
Chloride 98
Carbon Dioxide 26
BUN 11
Creatinine 0.6
Glucose 80
Calcium 9.3
Vital Signs:
Vital Signs
Temp Pulse Resp BP Pulse Ox
98.2 F 72 17 127/56 95
02/14/25 07:24 02/14/25 08:53 02/14/25 07:24 02/14/25 08:53 02/14/25 07:24
I&O
02/13/25 02/14/25 02/15/25
06:59 06:59 06:59
Intake Total 200 / 200
Balance 200 / 200
Review of Systems
-
History Source: Patient
All other systems: Reviewed and negative
[2025-02-14] MEDS: TYLENOL 650 MG PO (12:38)
--- NOTE | 2025-02-14 13:43 | W.CON.NEPH ---
Consultation
-
Date/Time Consultation Requested: February 14, 2025 at 9 AM
Date/Time Consultation Performed: 2024 at 12 PM
Requesting Provider: Josse Luna
Performing Provider: Dr. Plata
Reason for Consultation: Hyponatremia
Medical History
-
Chief Complaint: Hyponatremia
History of Present Illness:
84y F with PMH significant for A-Fib on Dofetilide, BB, AC with Pradaxa, hypertension on multiple meds, depression on ZOloft for 1yr and Parkinson's disease on Sinemet, who presents to ED for evaluation weakness found to have a sodium 127.
Patient was recently admitted 11/18 - 11/21 due to hypertensive encephalopathy which was attributed to poor med compliance. She has since obtained a new pill minder system with alarms, etc. Patient states that she was distracted this evening while
talking her grandson and accidentally took too many pills. The pill minder was able to be examined by ED staff to determine exact pills / amounts taken-list reviewed. Admission again on ED on 12/11 found to have her sodium was at 124 on
admit(normal on last admit) and repeat
Renal consult again for low sodium today 127. She has not been adhering to a fluid restriction
Past Medical History
ASCVD (CAD, Carotid Stenosis, Renal Artery Stenosis)
Persistent Atrial Fibrillation
Hypertension
SSS s/p PPM
Parkinson's Disease
Hypothyroidism
Breast Cancer
GERD
Past Surgical History: Other (PTCA with Stent Renal Artery PCI Left Mastectomy PPM Placement Bilateral CEA)
Social History
Tobacco: Former Smoker
Alcohol: Occasional
Drug: None
Family History
Family History: Not Pertinent
Allergies / Home Medications
Allergy/AdvReac Type Severity Reaction Status Date / Time
adhesive Allergy Redness, Verified 11/18/24 18:52
rash
amiodarone Allergy tremors Verified 11/18/24 18:52
diltiazem Allergy Rash Verified 11/18/24 18:52
hydralazine (Hydralazine) Allergy RAMSEY, Verified 11/18/24 18:52
Fatigue,
Dizziness
Iodinated Contrast Media Allergy Rash and Verified 11/18/24 18:52
(Iodinated Contrast Media - Warmth
IV Dye)
iodine (Iodine) Allergy rash with Verified 11/18/24 18:52
ivp dye
omeprazole Allergy Nausea Verified 11/18/24 18:52
spironolactone Allergy kidney Verified 11/18/24 18:52
failure-
Hypercalcemia
�Medication �Instructions �Recorded �Confirmed �Type
ursodiol 300 mg capsule 600 mg PO HS Urinary issue 01/23/17 02/14/25 History
dabigatran etexilate 150 mg 150 mg PO BID #60 caps 08/04/21 02/14/25 Rx
capsule (Pradaxa)
isosorbide mononitrate 60 mg 60 mg PO DAILY CHEST PAIN 05/18/22 02/14/25 History
tablet,extended release 24 hr
metoprolol succinate 100 mg 100 mg PO DAILY #30 tabs 05/28/22 02/14/25 Rx
tablet,extended release 24 hr
cholecalciferol (vitamin D3) 50 50 mcg PO DAILY Supplement 06/21/23 02/14/25 History
mcg (2,000 unit) capsule (Vitamin
D3)
calcium carbonate 600 mg PO DAILY Supplement 12/07/23 02/14/25 History
pantoprazole 20 mg tablet,delayed 20 mg PO BID 02/09/24 02/14/25 History
release (Protonix)
dofetilide 250 mcg capsule 250 mcg PO BID Arrhythmia 02/16/24 02/14/25 History
metoprolol succinate 50 mg 50 mg PO HS Blood Pressure 06/29/24 02/14/25 History
tablet,extended release 24 hr
valsartan 80 mg tablet 80 mg PO DAILY Blood Pressure 06/29/24 02/14/25 History
carbidopa 25 mg-levodopa 100 mg 1 tab PO 0900,1300,1700,2100 11/08/24 02/14/25 History
tablet (Sinemet) Neurological Condition
acetaminophen 325 mg tablet 650 mg PO Q4HPRN PRN mild 11/18/24 02/14/25 History
pain/MCGHEE/temp> 100F
nifedipine 30 mg tablet,extended 30 mg PO QPM Blood Pressure 11/18/24 02/14/25 History
release 24 hr
atorvastatin 80 mg tablet 80 mg PO HS #0 tabs 11/21/24 02/14/25 Rx
levothyroxine 112 mcg tablet 112 mcg PO DAILY 12/11/24 02/14/25 History
(Synthroid)
magnesium glycinate 100 mg (as 400 mg PO DAILY 12/12/24 02/14/25 History
glycinate) tablet
carbidopa ER 50 mg-levodopa 200 mg 1 tab PO DAILY@0000 02/13/25 02/14/25 History
tablet,extended release
clonidine HCl 0.1 mg tablet 0.05 mg PO Q6HPRN PRN SBP>160 02/13/25 02/14/25 History
cyanocobalamin (vitamin B-12) 1,000 mcg PO DAILY 02/13/25 02/13/25 History
1,000 mcg tablet (Vitamin B-12)
sertraline 25 mg tablet 25 mg PO DAILY 02/13/25 02/14/25 History
ursodiol 300 mg capsule 300 mg PO DAILY 02/13/25 02/14/25 History
Review of Systems
-
No chest pain or shortness of breath
All other systems: Negative unless noted
Physical Exam
Vital Signs
Vital Signs
Temp Pulse Resp BP Pulse Ox
98.3 F 72 16 139/53 96
02/14/25 10:56 02/14/25 10:56 02/14/25 10:56 02/14/25 10:56 02/14/25 10:56
Lab Results
WBC 7.2 10^3/uL (4.8-10.8) 02/13/25 20:28
RBC 3.88 10^6/uL (4.20-5.40) L 02/13/25 20:28
Hgb 11.5 g/dL (12.0-16.0) L 02/13/25 20:28
Hct 34.7 % (37.0-47.0) L 02/13/25 20:28
Plt Count 242 10^3/uL (130-400) 02/13/25 20:28
Sodium 127 mmol/L (135-145) L 02/14/25 07:22
Potassium 4.6 mmol/L (3.5-5.1) 02/14/25 07:22
Chloride 98 mmol/L (98-107) 02/14/25 07:22
Carbon Dioxide 26 mmol/L (22-30) 02/14/25 07:22
BUN 11 mg/dl (7-17) 02/14/25 07:22
Creatinine 0.6 mg/dL (0.6-1.0) 02/14/25 07:22
eGFR > 60.00 02/14/25 07:22
Glucose 80 mg/dl (70-99) 02/14/25 07:22
Calcium 9.3 mg/dl (8.4-10.2) 02/14/25 07:22
Albumin 4.4 g/dl (3.5-5.0) 02/13/25 20:28
Physical Exam
General no acute distress
HEENT no cephalic atraumatic extraocular muscle intact no scleral icterus no JVD neck supple
lungs clear to auscultation bilateral
heart regular S1-S2 positive
abdomen soft nontender positive bowel sounds
extremities no edema pulses present bilateral
Neurologically nonfocal alert and oriented x 3
Skin no lesions no abrasions no petechiae
Psych normal affect no bizarre behavior
Data Reviewed
-
Radiology: Image Personally Visualized and interpreted
Assessment/Plan
-
IMP:
Unintentional Overdose
Hyponatremia
Benign Hypertension
Recent admission for hypertensive encephalopathy.
Persistent Atrial Fibrillation
ASCVD
Chronic Normocytic Anemia
Hypothyroidism
Parkinson's Disease
Plan:
on SSRI/Sertraline = discontinued on this admission
recent TSH was low, LT4 adjusted in October
encourage solute intake
Sodium 127 asymptomatic
Discussed adhering to fluid restriction as she was drinking up to 70 ounces of water
Patient lives with her family is unable to care for self and unable to cook and do agree that she would need some type of assistance
Continue fluid restriction
--- NOTE | 2025-02-14 14:23 | CM ---
DIAZ met with Latha Godfrey who was admitted to [facility] status. Dr. Luna requested I speak with Latha regarding assisted living facilities, as she is not able to continue living alone. Latha is aware that she has not been managing well on her own,
but advised that she has already used friends and family members to assist and states 'there is no one else available'.
CM provided her with a list of assisted living/personal care facilities and a contact to speak to regarding assistance with locating a facility that meets her budget.
Plan: Latha is going to speak with her family and speak with the agency regarding costs/affordability.
--- NOTE | 2025-02-14 16:20 | CM ---
CM met with Latha and her daughter this afternoon - daughter has been staying with her since she is not able to stay alone. Daughter advised she has been in contact with [facility] and also mentioned [facility] as an option for SNF admission.
[2025-02-14] MEDS: PROCARDIA XL (EXTENDED RELEASE) 30 MG PO (17:45)
[2025-02-14] MEDS: TOPROL XL 50 MG PO (22:32)
[2025-02-14] MEDS: LIPITOR 80 MG PO (22:32)
[2025-02-14] MEDS: ACTIGALL 600 MG PO (22:35)
[2025-02-15] MEDS: SINEMET CR 50/200 (EXTENDED RELEASE) 1 TABLET PO (00:45)
[2025-02-15] MEDS: MELATONIN 3 MG PO (00:45)
[2025-02-15 03:05] VITALS: BP 136/60
[2025-02-15 06:00] VITALS: BMI 21.7
[2025-02-15] MEDS: SYNTHROID 100 MCG PO (07:15)
[2025-02-15 07:43] VITALS: BP 163/59
[2025-02-15 08:56] LABS: Hematocrit 33.0 % (37.0-47.0); Hemoglobin 11.2 g/dL (12.0-16.0); Mean Corp Hgb Conc. 33.9 g/dL (33.0-37.0); Mean Corpuscular Volume 90.4 fL (81.0-99.0); Platelet Count 221 10^3/uL (130-400); Red Cell Dist. Width 13.4 % (11.5-14.5)
[2025-02-15] MEDS: ACTIGALL 300 MG PO (09:17)
[2025-02-15] MEDS: PROTONIX 20 MG PO ×2 (09:17→20:41)
[2025-02-15] MEDS: TIKOSYN 250 MCG PO ×2 (09:17→20:42)
[2025-02-15] MEDS: PRADAXA 150 MG PO ×2 (09:17→20:40)
[2025-02-15] MEDS: DIOVAN 80 MG PO (09:17)
[2025-02-15] MEDS: TOPROL XL 100 MG PO (09:18)
[2025-02-15] MEDS: IMDUR (EXTENDED RELEASE) 60 MG PO (09:18)
[2025-02-15] MEDS: SINEMET 25-100 1 TABLET PO ×4 (09:21→21:22)
[2025-02-15 09:25] LABS: Blood Urea Nitrogen 12 mg/dl (7-17); Calcium 9.7 mg/dl (8.4-10.2); Carbon Dioxide 28 mmol/L (22-30); Chloride 97 mmol/L (98-107); Estimated Creatinine Clearance 48 ml/min; Glucose 87 mg/dl (70-99); Magnesium 1.7 mg/dl (1.6-2.3); Potassium 4.2 mmol/L (3.5-5.1); Sodium 130 mmol/L (135-145); eGFR > 60.00
[2025-02-15] MEDS: OSCAL CAL 500 PO (09:30)
--- NOTE | 2025-02-15 09:48 | W.PN.HOSP.TC ---
Today's Communication/Plan
-
Continue fluid restriction
Add Tums as needed
Monitor sodium
Discharge planning
Assessment / Plan
Assessment / Plan
Gen-AAOx3, NAD
HEENT-NC, AT, anicteric, clear oral mm
Neck-supple
CV-reg, no M, +S1/S2
Lungs-clear B/L
Abd-soft, NT, ND
Ext-no edema
Musculoskeletal-no cyanosis, clubbing
Skin-warm and dry
Neuro-grossly non-focal
Psych-calm, cooperative
Recurrent hyponatremia -suspect related to ongoing use of sertraline as well as polydipsia.
Sertraline discontinued.
Sodium improving, 130. Continue fluid restriction. Nephrology following.
CAD -stable.
Persistent atrial fibrillation -Pradaxa.
Essential hypertension -stable.
Hyperlipidemia -atorvastatin.
Hypothyroidism -levothyroxine dose reduced to 100 mcg daily given elevated free T4, suppressed TSH.
Parkinson disease -continue Sinemet.
Primary biliary cirrhosis
Full code
Dispo -stable for discharge to SNF with transition to assisted living thereafter.
Updated case management.
Anticipated Discharge: Within 24 hours
Subjective/Interval History
-
Date of Service: February 15, 2025
Patient seen and examined. Complaining of an upset stomach and mild nausea.
Objective Data
-
Labs:
Laboratory Results
02/15/25
08:30
WBC 9.3
Hgb 11.2 L
Hct 33.0 L
Plt Count 221
Sodium 130 L
Potassium 4.2
Chloride 97 L
Carbon Dioxide 28
BUN 12
Creatinine 0.6
Glucose 87
Calcium 9.7
Vital Signs:
Vital Signs
Temp Pulse Resp BP Pulse Ox
97.9 F 72 14 163/59 97
02/15/25 07:43 02/15/25 07:43 02/15/25 07:43 02/15/25 07:43 02/15/25 07:43
I&O
02/14/25 02/15/25 02/16/25
06:59 06:59 06:59
Intake Total 200 / 200 720 / 720
Balance 200 / 200 720 / 720
Review of Systems
-
History Source: Patient
All other systems: Reviewed and negative
[2025-02-15 11:26] VITALS: BP 138/51
--- NOTE | 2025-02-15 15:45 | W.PN.NEPH.PH ---
Today's Communication / Plan
-
Continue fluid restriction
Assessment/Plan
-
IMP:
Hyponatremia
Benign Hypertension
Recent admission for hypertensive encephalopathy.
Persistent Atrial Fibrillation
ASCVD
Chronic Normocytic Anemia
Hypothyroidism
Parkinson's Disease
Unintentional Overdose past history
Plan:
on SSRI/Sertraline = discontinued on this admission
recent TSH was low, LT4 adjusted in October
encourage solute intake
Discussed adhering to fluid restriction as she was drinking up to 70 ounces of water
Patient lives with her family is unable to care for self and unable to cook and do agree that she would need some type of assistance
Continue fluid restriction
Sodium improved to 130
-
-
Date of Service: February 15, 2025
CC / HPI / ROS
-
Chief Complaint:
Hyponatremia
History of Present Illness:
Acute on chronic hyponatremia not adhering to fluid restriction
Review of Systems:
No chest pain or shortness of breath
Labs
-
Labs:
WBC 9.3 10^3/uL (4.8-10.8) 02/15/25 08:30
RBC 3.65 10^6/uL (4.20-5.40) L 02/15/25 08:30
Hgb 11.2 g/dL (12.0-16.0) L 02/15/25 08:30
Hct 33.0 % (37.0-47.0) L 02/15/25 08:30
Plt Count 221 10^3/uL (130-400) 02/15/25 08:30
Sodium 130 mmol/L (135-145) L 02/15/25 08:30
Potassium 4.2 mmol/L (3.5-5.1) 02/15/25 08:30
Chloride 97 mmol/L (98-107) L 02/15/25 08:30
Carbon Dioxide 28 mmol/L (22-30) 02/15/25 08:30
BUN 12 mg/dl (7-17) 02/15/25 08:30
Creatinine 0.6 mg/dL (0.6-1.0) 02/15/25 08:30
eGFR > 60.00 02/15/25 08:30
Glucose 87 mg/dl (70-99) 02/15/25 08:30
Calcium 9.7 mg/dl (8.4-10.2) 02/15/25 08:30
Albumin 4.4 g/dl (3.5-5.0) 02/13/25 20:28
Physical Exam
-
Vital Signs:
Vital Signs
Temp Pulse Resp BP Pulse Ox
98.1 F 71 16 138/51 97
02/15/25 11:26 02/15/25 11:26 02/15/25 11:26 02/15/25 11:26 02/15/25 11:26
Cardiovascular:: Regular rate and rhythm
Respiratory:: Bilateral: CTA
Lung Excursion:: Normal
Abdomen:: Nontender and Soft
Bowel Sounds:: Normal
Extremity Edema:: None: Bilateral:
Mcallister Catheter: No
[2025-02-15 16:11] VITALS: BP 129/53
[2025-02-15] MEDS: PROCARDIA XL (EXTENDED RELEASE) 30 MG PO (17:33)
[2025-02-15 19:00] VITALS: BP 144/55
[2025-02-15] MEDS: TOPROL XL 50 MG PO (21:23)
[2025-02-15] MEDS: ACTIGALL 600 MG PO (21:24)
[2025-02-15] MEDS: LIPITOR 80 MG PO (21:24)
[2025-02-15] MEDS: TYLENOL 650 MG PO (21:44)
[2025-02-15 23:00] VITALS: BP 134/47
[2025-02-16] VITALS (7 sets, daily range): BP systolic 118–171; BP diastolic 45–64; PULSE 74; BMI 21.7
[2025-02-16] MEDS: SINEMET CR 50/200 (EXTENDED RELEASE) 1 TABLET PO (00:03)
[2025-02-16] MEDS: SYNTHROID 100 MCG PO (05:34)
[2025-02-16] MEDS: PROTONIX 20 MG PO ×2 (08:34→19:31)
[2025-02-16] MEDS: TOPROL XL 100 MG PO (08:34)
[2025-02-16] MEDS: IMDUR (EXTENDED RELEASE) 60 MG PO (08:34)
[2025-02-16] MEDS: TIKOSYN 250 MCG PO ×2 (08:34→19:32)
[2025-02-16] MEDS: DIOVAN 80 MG PO (08:34)
[2025-02-16] MEDS: PRADAXA 150 MG PO ×2 (08:34→19:30)
[2025-02-16] MEDS: ACTIGALL 300 MG PO (08:35)
[2025-02-16] MEDS: OSCAL CAL 500 500 MG PO (08:35)
[2025-02-16] MEDS: SINEMET 25-100 1 TABLET PO ×4 (08:41→21:35)
[2025-02-16 09:02] LABS: Blood Urea Nitrogen 11 mg/dl (7-17); Calcium 10.0 mg/dl (8.4-10.2); Carbon Dioxide 27 mmol/L (22-30); Chloride 98 mmol/L (98-107); Estimated Creatinine Clearance 48 ml/min; Glucose 86 mg/dl (70-99); Potassium 4.3 mmol/L (3.5-5.1); Sodium 132 mmol/L (135-145); eGFR > 60.00
--- NOTE | 2025-02-16 10:31 | W.PN.HOSP.TC ---
Today's Communication/Plan
-
Continue current care
Assessment / Plan
Assessment / Plan
Gen-AAOx3, NAD
HEENT-NC, AT, anicteric, clear oral mm
Neck-supple
CV-reg, no M, +S1/S2
Lungs-clear B/L
Abd-soft, NT, ND
Ext-no edema
Musculoskeletal-no cyanosis, clubbing
Skin-warm and dry
Neuro-grossly non-focal
Psych-calm, cooperative
Recurrent hyponatremia -suspect related to ongoing use of sertraline as well as polydipsia.
Sertraline discontinued.
Sodium improving, 132. Continue fluid restriction. Nephrology following.
CAD -stable.
Persistent atrial fibrillation -Pradaxa.
Essential hypertension -somewhat labile pressures noted. Could increase Procardia if needed.
Hyperlipidemia -atorvastatin.
Hypothyroidism -levothyroxine dose reduced to 100 mcg daily given elevated free T4, suppressed TSH.
Parkinson disease -continue Sinemet.
Primary biliary cirrhosis
Full code
Dispo -stable for discharge to SNF with transition to assisted living thereafter.
Updated case management.
Anticipated Discharge: Within 24 hours
Subjective/Interval History
-
Date of Service: February 16, 2025
Patient seen and examined, no new complaints.
Objective Data
-
Labs:
Laboratory Results
02/16/25
07:46
Sodium 132 L
Potassium 4.3
Chloride 98
Carbon Dioxide 27
BUN 11
Creatinine 0.5 L
Glucose 86
Calcium 10.0
Vital Signs:
Vital Signs
Temp Pulse Resp BP Pulse Ox
97.8 F 71 17 171/64 96
02/16/25 07:00 02/16/25 07:00 02/16/25 07:00 02/16/25 07:00 02/16/25 07:00
I&O
02/15/25 02/16/25 02/17/25
06:59 06:59 06:59
Intake Total 720 / 720 480 / 480
Balance 720 / 720 480 / 480
Review of Systems
-
History Source: Patient
All other systems: Reviewed and negative
--- NOTE | 2025-02-16 13:39 | CM ---
PT OT indicate SNF at [facility].
Spoke with patient PAC data given PT requested referral for [facility].
Pt will need auth for SNF
Asked patient if this CM should call her family . She said no they are busy.
PLAN Check which SNF can accept pt and obtained auth
[2025-02-16 13:53] LABS: Iron 59 ug/dl (37-170)
[2025-02-16 14:02] LABS: Total Iron Binding Capacity 365 ug/dl (265-497)
[2025-02-16 14:38] LABS: Reticulocyte Count 2.1 % (0.4-2.8)
--- NOTE | 2025-02-16 14:42 | W.PN.NEPH.PH ---
Today's Communication / Plan
-
Fluid restriction. Okay for discharge from renal standpoint
Assessment/Plan
-
IMP:
Hyponatremia
Benign Hypertension
Recent admission for hypertensive encephalopathy.
Persistent Atrial Fibrillation
ASCVD
Chronic Normocytic Anemia
Hypothyroidism
Parkinson's Disease
Unintentional Overdose past history
Plan:
on SSRI/Sertraline = discontinued on this admission
recent TSH was low, LT4 adjusted in October
encourage solute intake
Discussed adhering to fluid restriction as she was drinking up to 70 ounces of water
Patient lives with her family is unable to care for self and unable to cook and do agree that she would need some type of assistance
Continue fluid restriction
Sodium improved to 130>132
-
-
Date of Service: February 16, 2025
CC / HPI / ROS
-
Chief Complaint:
Hyponatremia
History of Present Illness:
Acute on chronic hyponatremia not adhering to fluid restriction
Review of Systems:
No chest pain or shortness of breath
Labs
-
Labs:
WBC 9.3 10^3/uL (4.8-10.8) 02/15/25 08:30
RBC 3.65 10^6/uL (4.20-5.40) L 02/15/25 08:30
Hgb 11.2 g/dL (12.0-16.0) L 02/15/25 08:30
Hct 33.0 % (37.0-47.0) L 02/15/25 08:30
Plt Count 221 10^3/uL (130-400) 02/15/25 08:30
Sodium 132 mmol/L (135-145) L 02/16/25 07:46
Potassium 4.3 mmol/L (3.5-5.1) 02/16/25 07:46
Chloride 98 mmol/L (98-107) 02/16/25 07:46
Carbon Dioxide 27 mmol/L (22-30) 02/16/25 07:46
BUN 11 mg/dl (7-17) 02/16/25 07:46
Creatinine 0.5 mg/dL (0.6-1.0) L 02/16/25 07:46
eGFR > 60.00 02/16/25 07:46
Glucose 86 mg/dl (70-99) 02/16/25 07:46
Calcium 10.0 mg/dl (8.4-10.2) 02/16/25 07:46
Albumin 4.4 g/dl (3.5-5.0) 02/13/25 20:28
Physical Exam
-
Vital Signs:
Vital Signs
Temp Pulse Resp BP Pulse Ox
97.9 F 72 18 136/56 98
02/16/25 11:00 02/16/25 11:00 02/16/25 11:00 02/16/25 11:00 02/16/25 11:00
Cardiovascular:: Regular rate and rhythm
Respiratory:: Bilateral: CTA
Lung Excursion:: Normal
Abdomen:: Nontender and Soft
Bowel Sounds:: Normal
Extremity Edema:: None: Bilateral:
Mcallister Catheter: No
[2025-02-16 15:01] LABS: Ferritin 116.0 ng/ml (11.1-264.0)
[2025-02-16] MEDS: PROCARDIA XL (EXTENDED RELEASE) 30 MG PO (17:13)
[2025-02-16 18:25] LABS: Uric Acid 3.5 mg/dl (2.5-6.2)
[2025-02-16] MEDS: LIPITOR 80 MG PO (21:35)
[2025-02-16] MEDS: TOPROL XL 50 MG PO (21:35)
[2025-02-16] MEDS: ACTIGALL 600 MG PO (21:39)
[2025-02-16] MEDS: TYLENOL 650 MG PO (22:34)
[2025-02-17] VITALS (7 sets, daily range): BP systolic 105–172; BP diastolic 47–68; PULSE 70; O2SAT 97; BMI 21.7
[2025-02-17] MEDS: SINEMET CR 50/200 (EXTENDED RELEASE) 1 TABLET PO (00:03)
[2025-02-17] MEDS: SYNTHROID 100 MCG PO (05:13)
[2025-02-17] MEDS: ACTIGALL 300 MG PO (08:37)
[2025-02-17] MEDS: PROTONIX 20 MG PO ×2 (08:37→20:10)
[2025-02-17] MEDS: IMDUR (EXTENDED RELEASE) 60 MG PO (08:37)
[2025-02-17] MEDS: TOPROL XL 100 MG PO (08:37)
[2025-02-17] MEDS: DIOVAN 80 MG PO (08:37)
[2025-02-17] MEDS: PRADAXA 150 MG PO ×2 (08:37→20:11)
[2025-02-17] MEDS: TIKOSYN 250 MCG PO ×2 (08:37→20:10)
[2025-02-17] MEDS: OSCAL CAL 500 500 MG PO (08:38)
[2025-02-17] MEDS: SINEMET 25-100 1 TABLET PO ×4 (08:39→21:27)
--- NOTE | 2025-02-17 09:43 | W.PN.NEPH.PH ---
Today's Communication / Plan
-
Maintain fluid restriction
Follow BMP
Assessment/Plan
-
IMP:
Hyponatremia
Benign Hypertension
Recent admission for hypertensive encephalopathy.
Persistent Atrial Fibrillation
ASCVD
Chronic Normocytic Anemia
Hypothyroidism
Parkinson's Disease
Unintentional Overdose past history
Plan:
on SSRI/Sertraline = discontinued on this admission
recent TSH was low, LT4 adjusted in October
encourage solute intake
Discussed adhering to fluid restriction as she was drinking up to 70 ounces of water
Patient lives with her family is unable to care for self and unable to cook and do agree that she would need some type of assistance
Continue fluid restriction
Sodium improved to 130>132 as of 02/17
todays results pending
-
-
Date of Service: February 17, 2025
CC / HPI / ROS
-
Chief Complaint:
Hyponatremia
History of Present Illness:
Acute on chronic hyponatremia not adhering to fluid restriction
Sodium 132 when last checked
Hemodynamically
Review of Systems:
No complaint
No chest pain or shortness of breath
Labs
-
Labs:
WBC 9.3 10^3/uL (4.8-10.8) 02/15/25 08:30
RBC 3.65 10^6/uL (4.20-5.40) L 02/15/25 08:30
Hgb 11.2 g/dL (12.0-16.0) L 02/15/25 08:30
Hct 33.0 % (37.0-47.0) L 02/15/25 08:30
Plt Count 221 10^3/uL (130-400) 02/15/25 08:30
eGFR > 60.00 02/16/25 07:46
Albumin 4.4 g/dl (3.5-5.0) 02/13/25 20:28
Physical Exam
-
Vital Signs:
Vital Signs
Temp Pulse Resp BP Pulse Ox
98.4 F 71 16 162/62 96
02/17/25 07:37 02/17/25 08:37 02/17/25 07:37 02/17/25 08:37 02/17/25 07:37
Cardiovascular:: Regular rate and rhythm
Respiratory:: Bilateral: CTA
Lung Excursion:: Normal
Abdomen:: Nontender and Soft
Bowel Sounds:: Normal
Extremity Edema:: None: Bilateral:
Mcallister Catheter: No
[2025-02-17 10:19] LABS: Blood Urea Nitrogen 13 mg/dl (7-17); Calcium 9.3 mg/dl (8.4-10.2); Carbon Dioxide 25 mmol/L (22-30); Chloride 98 mmol/L (98-107); Estimated Creatinine Clearance 48 ml/min; Glucose 91 mg/dl (70-99); Potassium 4.3 mmol/L (3.5-5.1); Sodium 131 mmol/L (135-145); eGFR > 60.00
--- NOTE | 2025-02-17 11:38 | PTCARENOTE ---
Pt c/o nausea and 9/10 abd pain. 2 recent BM's. made aware, new order provided, see MAR.
--- NOTE | 2025-02-17 11:50 | W.PN.HOSP.TC ---
Today's Communication/Plan
-
check abdomen xray
FR
Ongoing dispo to SNF pending
trend bmp
Assessment / Plan
Assessment / Plan
Gen-AAOx3, NAD
HEENT-NC, AT, anicteric, clear oral mm
Neck-supple
CV-reg, no M, +S1/S2
Lungs-clear B/L
Abd-soft, NT, ND
Ext-no edema
Musculoskeletal-no cyanosis, clubbing
Skin-warm and dry
Neuro-grossly non-focal
Psych-calm, cooperative
Recurrent hyponatremia -suspect related to ongoing use of sertraline as well as polydipsia.
Sertraline discontinued.
Sodium at 131 today.
Continue fluid restriction. Nephrology following.
CAD -stable.
Persistent atrial fibrillation -Pradaxa. Continue metoprolol 100 mg a.m./50 mg nightly.
Essential hypertension -somewhat labile pressures noted. Could increase Procardia if needed.
Hyperlipidemia -atorvastatin.
Hypothyroidism -levothyroxine dose reduced to 100 mcg daily given elevated free T4, suppressed TSH.
Parkinson disease -continue Sinemet.
Primary biliary cirrhosis
Nausea/abdominal pain-had bowel movement earlier today. Zofran. Check Abdomen xray
Full code
Dispo -stable for discharge to SNF with transition to assisted living thereafter.
Anticipated Discharge: Within 24 hours
Subjective/Interval History
-
Date of Service: February 17, 2025
No overnight events
Had bowel movement earlier today
Later received text patient feeling nauseous and stating of abdominal discomfort
Objective Data
-
Labs:
Laboratory Results
02/17/25
09:15
Sodium 131 L
Potassium 4.3
Chloride 98
Carbon Dioxide 25
BUN 13
Creatinine 0.5 L
Glucose 91
Calcium 9.3
Vital Signs:
Vital Signs
Temp Pulse Resp BP Pulse Ox
98.4 F 71 16 162/62 96
02/17/25 07:37 02/17/25 08:37 02/17/25 07:37 02/17/25 08:37 02/17/25 07:37
I&O
02/16/25 02/17/25 02/18/25
06:59 06:59 06:59
Intake Total 480 / 480 840 / 840
Balance 480 / 480 840 / 840
Data Reviewed
-
Total Time Spent with Patient (in minutes): 55
[2025-02-17] MEDS: ZOFRAN 4 MG IV (11:53)
--- NOTE | 2025-02-17 15:50 | CM ---
No beds available at the facilities where patient requested ([facility], [place]). [facility] has not yet responded to the referral.
CM will continue to follow; SNF recommendation by PT and OT.
[2025-02-17] MEDS: PROCARDIA XL (EXTENDED RELEASE) 30 MG PO (17:38)
[2025-02-17] MEDS: TOPROL XL 50 MG PO (21:23)
[2025-02-17] MEDS: ACTIGALL 600 MG PO (21:24)
[2025-02-17] MEDS: LIPITOR 80 MG PO (21:24)
[2025-02-18] VITALS (8 sets, daily range): BP systolic 122–157; BP diastolic 42–60; PULSE 70–71; O2SAT 95; BMI 21.7
[2025-02-18] MEDS: SINEMET CR 50/200 (EXTENDED RELEASE) 1 TABLET PO ×2 (00:13→23:13)
[2025-02-18] MEDS: SYNTHROID 100 MCG PO (06:09)
[2025-02-18] MEDS: PRADAXA 150 MG PO ×2 (07:33→20:06)
[2025-02-18] MEDS: PROTONIX 20 MG PO ×2 (07:34→20:06)
[2025-02-18] MEDS: IMDUR (EXTENDED RELEASE) 60 MG PO (07:34)
[2025-02-18] MEDS: DIOVAN 80 MG PO (07:34)
[2025-02-18] MEDS: TIKOSYN 250 MCG PO ×2 (07:34→20:06)
[2025-02-18] MEDS: ACTIGALL 300 MG PO (07:39)
[2025-02-18] MEDS: TOPROL XL 100 MG PO (07:39)
[2025-02-18] MEDS: OSCAL CAL 500 500 MG PO (07:40)
[2025-02-18 08:12] LABS: Blood Urea Nitrogen 14 mg/dl (7-17); Calcium 9.1 mg/dl (8.4-10.2); Carbon Dioxide 29 mmol/L (22-30); Chloride 97 mmol/L (98-107); Estimated Creatinine Clearance 42 ml/min; Glucose 91 mg/dl (70-99); Potassium 4.5 mmol/L (3.5-5.1); Sodium 132 mmol/L (135-145); eGFR > 60.00
[2025-02-18] MEDS: SINEMET 25-100 1 TABLET PO ×4 (09:05→20:06)
--- NOTE | 2025-02-18 09:55 | W.PN.NEPH.PH ---
Today's Communication / Plan
-
Maintain fluid restriction
Follow electrolytes while patient is still here
Assessment/Plan
-
IMP:
Hyponatremia
Benign Hypertension
Recent admission for hypertensive encephalopathy.
Persistent Atrial Fibrillation
ASCVD
Chronic Normocytic Anemia
Hypothyroidism
Parkinson's Disease
Unintentional Overdose past history
Plan:
Sodium stable at 132
on SSRI/Sertraline = discontinued on this admission
recent TSH was low, LT4 adjusted in October
encourage solute intake
Blood pressure stable on losartan
Discussed adhering to fluid restriction as she was drinking up to 70 ounces of water
Patient lives with her family is unable to care for self and unable to cook and do agree that she would need some type of assistance
Continue fluid restriction
Sodium improved to 130>132 as of 02/17
-
-
Date of Service: February 18, 2025
CC / HPI / ROS
-
Chief Complaint:
Hyponatremia
History of Present Illness:
Acute on chronic hyponatremia not adhering to fluid restriction
Sodium 132 on fluid restriction
Hemodynamically stable on valsartan
Review of Systems:
No complaint
No chest pain or shortness of breath
Labs
-
Labs:
WBC 9.3 10^3/uL (4.8-10.8) 02/15/25 08:30
RBC 3.65 10^6/uL (4.20-5.40) L 02/15/25 08:30
Hgb 11.2 g/dL (12.0-16.0) L 02/15/25 08:30
Hct 33.0 % (37.0-47.0) L 02/15/25 08:30
Plt Count 221 10^3/uL (130-400) 02/15/25 08:30
Sodium 132 mmol/L (135-145) L 02/18/25 06:49
Potassium 4.5 mmol/L (3.5-5.1) 02/18/25 06:49
Chloride 97 mmol/L (98-107) L 02/18/25 06:49
Carbon Dioxide 29 mmol/L (22-30) 02/18/25 06:49
BUN 14 mg/dl (7-17) 02/18/25 06:49
Creatinine 0.7 mg/dL (0.6-1.0) 02/18/25 06:49
eGFR > 60.00 02/18/25 06:49
Glucose 91 mg/dl (70-99) 02/18/25 06:49
Calcium 9.1 mg/dl (8.4-10.2) 02/18/25 06:49
Albumin 4.4 g/dl (3.5-5.0) 02/13/25 20:28
Physical Exam
-
Vital Signs:
Vital Signs
Temp Pulse Resp BP Pulse Ox
97.2 F 69 20 156/52 96
02/18/25 08:01 02/18/25 08:01 02/18/25 08:01 02/18/25 08:01 02/18/25 08:01
Cardiovascular:: Regular rate and rhythm
Respiratory:: Bilateral: CTA
Lung Excursion:: Normal
Abdomen:: Nontender and Soft
Bowel Sounds:: Normal
Extremity Edema:: None: Bilateral:
Mcallister Catheter: No
--- NOTE | 2025-02-18 11:28 | W.PN.HOSP.TC ---
Today's Communication/Plan
-
Await placement
Continue with fluid restriction
Monitor blood pressure
Assessment / Plan
Assessment / Plan
Gen-AAOx3, NAD
HEENT-NC, AT, anicteric, clear oral mm
Neck-supple
CV-reg, no M, +S1/S2
Lungs-clear B/L
Abd-positive bowel sound, soft, nondistended, nontender
Ext-no edema
Musculoskeletal-no cyanosis, clubbing
Skin-warm and dry
Neuro-grossly non-focal
Psych-calm, cooperative
Recurrent hyponatremia -suspect related to ongoing use of sertraline as well as polydipsia.
Sertraline discontinued.
Sodium at 132 today.
Continue fluid restriction. Nephrology following.
CAD -stable.
Persistent atrial fibrillation -Pradaxa. Continue metoprolol 100 mg a.m./50 mg nightly.
Essential hypertension -somewhat labile pressures noted. Could increase Procardia if needed. Continue valsartan, Toprol and Procardia
Hyperlipidemia -atorvastatin.
Hypothyroidism -levothyroxine dose reduced to 100 mcg daily given elevated free T4, suppressed TSH.
Parkinson disease -continue Sinemet.
Primary biliary cirrhosis- on ursodiol
Nausea/abdominal pain-abdominal imaging with nonobstructive bowel gas pattern but mild colonic stool burden. Simethicone as needed. Bowel regimen.
Full code
Dispo -stable for discharge to SNF
Anticipated Discharge: Today
Subjective/Interval History
-
Date of Service: February 18, 2025
Significant improvement in abdominal pain since yesterday
No nausea
Was able to tolerate and eat
States of increased flatulence and bloating
Objective Data
-
Labs:
Laboratory Results
02/18/25
06:49
Sodium 132 L
Potassium 4.5
Chloride 97 L
Carbon Dioxide 29
BUN 14
Creatinine 0.7
Glucose 91
Calcium 9.1
Vital Signs:
Vital Signs
Temp Pulse Resp BP Pulse Ox
97 F 70 18 142/44 95
02/18/25 11:12 02/18/25 11:12 02/18/25 11:12 02/18/25 11:12 02/18/25 11:12
I&O
02/17/25 02/18/25 02/19/25
06:59 06:59 06:59
Intake Total 840 / 840 660 / 660
Balance 840 / 840 660 / 660
[2025-02-18] MEDS: MYLICON 80 MG PO (12:18)
--- NOTE | 2025-02-18 13:02 | CM ---
CM met with Latha and her daughter to review available options for SNF. Beds offered at [facility] and [facility]; pt declined both.
[facility] is willing to consider, however pt has an outstanding balance to pay prior to admitting to [facility]. Possible bed available tomorrow; CM will follow up with [facility] admissions in AM.
[2025-02-18] MEDS: PROCARDIA XL (EXTENDED RELEASE) 30 MG PO (17:12)
[2025-02-18] MEDS: SENOKOT-S 1 TABLET PO (20:07)
[2025-02-18] MEDS: ACTIGALL 600 MG PO (23:13)
[2025-02-18] MEDS: LIPITOR 80 MG PO (23:13)
[2025-02-18] MEDS: TOPROL XL 50 MG PO (23:13)
[2025-02-19 03:00] VITALS: BP 146/52
[2025-02-19] MEDS: SYNTHROID 100 MCG PO (05:21)
[2025-02-19 06:00] VITALS: BMI 21.7
[2025-02-19 06:50] LABS: Blood Urea Nitrogen 14 mg/dl (7-17); Calcium 9.0 mg/dl (8.4-10.2); Carbon Dioxide 26 mmol/L (22-30); Chloride 97 mmol/L (98-107); Estimated Creatinine Clearance 42 ml/min; Glucose 89 mg/dl (70-99); Potassium 4.3 mmol/L (3.5-5.1); Sodium 130 mmol/L (135-145); eGFR > 60.00
[2025-02-19 07:54] VITALS: BP 104/55
[2025-02-19] MEDS: PRADAXA 150 MG PO (08:26)
[2025-02-19] MEDS: OSCAL CAL 500 500 MG PO (08:26)
[2025-02-19] MEDS: TIKOSYN 250 MCG PO (08:26)
[2025-02-19] MEDS: DIOVAN 80 MG PO (08:26)
[2025-02-19] MEDS: SENOKOT-S 1 TABLET PO (08:26)
[2025-02-19] MEDS: PROTONIX 20 MG PO (08:26)
[2025-02-19] MEDS: IMDUR (EXTENDED RELEASE) 60 MG PO (08:27)
[2025-02-19] MEDS: TOPROL XL 100 MG PO (08:27)
[2025-02-19] MEDS: ACTIGALL 300 MG PO (08:27)
[2025-02-19] MEDS: CATAPRES 0.05 MG PO (08:31)
[2025-02-19] MEDS: SINEMET 25-100 1 TABLET PO ×2 (08:31→12:21)
[2025-02-19 09:37] LABS: Magnesium 1.5 mg/dl (1.6-2.3)
[2025-02-19] MEDS: FLEXERIL 5 MG PO (10:28)
--- NOTE | 2025-02-19 10:37 | W.PN.NEPH.PH ---
Today's Communication / Plan
-
Continue fluid restriction
Assessment/Plan
-
IMP:
Hyponatremia
Benign Hypertension
Recent admission for hypertensive encephalopathy.
Persistent Atrial Fibrillation
ASCVD
Chronic Normocytic Anemia
Hypothyroidism
Parkinson's Disease
Unintentional Overdose past history
Plan:
Sodium stable at 132
on SSRI/Sertraline = discontinued on this admission
recent TSH was low, LT4 adjusted in October
encourage solute intake
Blood pressure stable on losartan
Discussed adhering to fluid restriction as she was drinking up to 70 ounces of water
Patient lives with her family is unable to care for self and unable to cook and do agree that she would need some type of assistance
Continue fluid restriction
Sodium Stable low 130
-
-
Date of Service: February 19, 2025
CC / HPI / ROS
-
Chief Complaint:
Hyponatremia
History of Present Illness:
Acute on chronic hyponatremia not adhering to fluid restriction
Sodium 132 on fluid restriction
Hemodynamically stable on valsartan
Review of Systems:
No complaint
No chest pain or shortness of breath
Labs
-
Labs:
WBC 9.3 10^3/uL (4.8-10.8) 02/15/25 08:30
RBC 3.65 10^6/uL (4.20-5.40) L 02/15/25 08:30
Hgb 11.2 g/dL (12.0-16.0) L 02/15/25 08:30
Hct 33.0 % (37.0-47.0) L 02/15/25 08:30
Plt Count 221 10^3/uL (130-400) 02/15/25 08:30
Sodium 130 mmol/L (135-145) L 02/19/25 05:36
Potassium 4.3 mmol/L (3.5-5.1) 02/19/25 05:36
Chloride 97 mmol/L (98-107) L 02/19/25 05:36
Carbon Dioxide 26 mmol/L (22-30) 02/19/25 05:36
BUN 14 mg/dl (7-17) 02/19/25 05:36
Creatinine 0.7 mg/dL (0.6-1.0) 02/19/25 05:36
eGFR > 60.00 02/19/25 05:36
Glucose 89 mg/dl (70-99) 02/19/25 05:36
Calcium 9.0 mg/dl (8.4-10.2) 02/19/25 05:36
Phosphorus 3.5 mg/dl (2.5-4.5) 02/19/25 05:36
Albumin 4.4 g/dl (3.5-5.0) 02/13/25 20:28
Physical Exam
-
Vital Signs:
Vital Signs
Temp Pulse Resp BP Pulse Ox
98.8 F 71 14 179/67 96
02/19/25 07:54 02/19/25 08:31 02/19/25 07:54 02/19/25 08:31 02/19/25 07:54
Cardiovascular:: Regular rate and rhythm
Respiratory:: Bilateral: CTA
Lung Excursion:: Normal
Abdomen:: Nontender and Soft
Bowel Sounds:: Normal
Extremity Edema:: None: Bilateral:
Mcallister Catheter: No
[2025-02-19 11:30] VITALS: BP 112/45
--- NOTE | 2025-02-19 11:50 | W.PN.HOSP.TC ---
Addendum entered and electronically signed by Raymon Escobedo MD 02/19/25 14:23:
Discussed with nephrology. Okay for discharge with fluid restriction to SNF.
More than 30 minutes spent in discharge including
Final examination of the patient
Summarizing hospital stay
Instructions for continuing care to all relevant caregivers
Preparation of discharge records, prescriptions, and referral forms
Total time spent (in minutes): 53
Original Note:
Today's Communication/Plan
-
await placement
flexeril prn
tolerating diet
Replete mag should help with muscle cramps
Assessment / Plan
Assessment / Plan
Gen-AAOx3, NAD
HEENT-NC, AT, anicteric, clear oral mm
Neck-supple
CV-reg, no M, +S1/S2
Lungs-clear B/L
Abd-positive bowel sound, soft, nondistended, nontender
Ext-no edema
Musculoskeletal-no cyanosis, clubbing
Skin-warm and dry
Neuro-grossly non-focal
Psych-calm, cooperative
Recurrent hyponatremia -suspect related to ongoing use of sertraline as well as polydipsia.
Sertraline discontinued.
Sodium low at 130 today.
Continue fluid restriction. Nephrology following.
CAD -stable.
Persistent atrial fibrillation -Pradaxa. Continue metoprolol 100 mg a.m./50 mg nightly.
Essential hypertension -somewhat labile pressures noted. Could increase Procardia if needed. Continue valsartan, Toprol and Procardia. BP controlled 112/45
Hyperlipidemia -atorvastatin.
Hypothyroidism -levothyroxine dose reduced to 100 mcg daily given elevated free T4, suppressed TSH.
Parkinson disease -continue Sinemet.
Primary biliary cirrhosis- on ursodiol
Nausea/abdominal pain-abdominal imaging with nonobstructive bowel gas pattern but mild colonic stool burden. Simethicone as needed. Bowel regimen. Improved.
Hypomagnesemia-replete monitor
Full code
Dispo -stable for discharge to SNF
Anticipated Discharge: Today
Subjective/Interval History
-
Date of Service: February 19, 2025
States of lower extremity muscle cramps. States that she takes Flexeril at home
Denies abdominal pain this morning.
Objective Data
-
Labs:
Laboratory Results
02/19/25
05:36
Sodium 130 L
Potassium 4.3
Chloride 97 L
Carbon Dioxide 26
BUN 14
Creatinine 0.7
Glucose 89
Calcium 9.0
Vital Signs:
Vital Signs
Temp Pulse Resp BP Pulse Ox
98.8 F 71 16 112/45 96
02/19/25 11:30 02/19/25 11:30 02/19/25 11:30 02/19/25 11:30 02/19/25 11:30
I&O
02/18/25 02/19/25 02/20/25
06:59 06:59 06:59
Intake Total 660 / 660 900 / 900
Balance 660 / 660 900 / 900
Data Reviewed
-
Total Time Spent with Patient (in minutes): 55
[2025-02-19] MEDS: MAGNESIUM SULFATE 50 IV (12:20)
--- NOTE | 2025-02-19 12:36 | CM ---
Addendum entered by Kaitlin Maciel 02/19/25 14:33:
Transfer to [facility] via ambulance today. Ambulance authorization [id number]
SNF Auth: [id number]
6 days approved 02/19-02/24/2025
Updates to
Original Note:
Pt has been accepted for admission to [facility] today. Insurance authorization needs to be obtained for transfer. Ambulance transport to be requested once authorization is approved.
[facility] Report (3rd floor):[phone]
[facility] Fax: (3rd floor):[phone]
--- NOTE | 2025-02-19 14:23 | W.DCSUMMARY ---
Discharge Summary
Discharge Data
Date of Admission: 02/17/25
Date of Discharge: 02/19/25
-
Pending Results: No
Hospital Course
84-year-old female past medical history of CAD, carotids stenosis, renal artery stenosis, atrial fibrillation, sick sinus syndrome status post pacemaker implantation, hypertension, Parkinson disease, primary biliary cirrhosis, GERD, mood disorder
presented with generalized weakness and fatigue. Patient was drinking increasing amount of fluids as outpatient. Patient continues to take sertraline which was discontinued. Patient was evaluated by nephrology. Patient thyroid function testing
was checked and Synthroid dose was decreased. Patient remained on fluid restriction. Patient sodium slowly improved. Patient with history of chronic hyponatremia. Patient was also found to have a hypomagnesemia which was repleted. Patient also
had episode of abdominal discomfort and nausea. Abdominal x-ray with constipation. Patient was started on bowel regimen. Abdominal pain resolved. Patient was tolerating diet. Patient was eval by physical and Occupational Therapy with plan to
discharge to longterm facility.
Discharge Plan
-
Patient Disposition: Prison/SNF
Discharge Diagnosis/Procedures: Recurrent hyponatremia -suspect related to ongoing use of sertraline as well as polydipsia.
Hypomagnesemia
Abdominal pain and nausea
Diet: Low Cholesterol and Restrict fluids to 48 oz
Activity: As tolerated
Driving Restrictions: Not until seen by your Dr
Blood Work: BMP in 5-7 days via primary doctor.
Repeat thyroid function testing in 4 to 5 weeks via primary doctor
Referrals:
Florecita Valentine DO [Family Provider, Family Practice] - in less than 1 week
Additional Discharge Medication Instructions: Sertraline was discontinued.
Levothyroxine dose was decreased to 100mcg.
Prescriptions:
New
levothyroxine 100 mcg Tablet
100 mcg PO DAILY @ 0600 100 Days Qty: 100 0RF
Continued
ursodiol 300 MG capsule
600 mg PO HS
dabigatran etexilate [Pradaxa] 150 MG capsule
150 mg PO BID Qty: 60 1RF
isosorbide mononitrate 60 mg tablet extended release 24 hr
60 mg PO DAILY
metoprolol succinate 100 mg Tablet Extended Release 24 Hr
100 mg PO DAILY Qty: 30 0RF
cholecalciferol (vitamin D3) [Vitamin D3] 50 mcg (2,000 unit) Capsule
50 mcg PO DAILY
calcium carbonate 500 mg calcium (1,250 mg) Tablet
600 mg PO DAILY
pantoprazole [Protonix] 20 mg Tablet,Delayed Release (Dr/Ec)
20 mg PO BID
dofetilide 250 mcg capsule
250 mcg PO BID
metoprolol succinate 50 mg Tablet Extended Release 24 Hr
50 mg PO HS
valsartan 80 mg Tablet
80 mg PO DAILY
carbidopa-levodopa [Sinemet] 25-100 mg tablet
1 tab PO 0900,1300,1700,2100
Rx Instructions:
9a,1p,5p,9P
nifedipine 30 mg Tablet Extended Release 24hr
30 mg PO QPM
acetaminophen 325 mg tablet
650 mg PO Q4HPRN MDD 3000 mg PRN (Reason: mild pain/MCGHEE/temp> 100F)
atorvastatin 80 mg Tablet
80 mg PO HS Qty: 0 0RF
magnesium glycinate 100 mg Tablet
400 mg PO DAILY
ursodiol 300 mg Capsule
300 mg PO DAILY
Rx Instructions:
300 mg orally HS
clonidine HCl 0.1 mg tablet
0.05 mg PO Q6HPRN PRN (Reason: SBP>160)
carbidopa-levodopa 50-200 mg tablet extended release
1 tab PO DAILY@0000
cyanocobalamin (vitamin B-12) [Vitamin B-12] 1,000 mcg tablet
1,000 mcg PO DAILY
Discontinued
levothyroxine [Synthroid] 112 mcg Tablet
112 mcg PO DAILY
sertraline 25 mg Tablet
25 mg PO DAILY
Discharge Orders:
Discharge Patient (As Directed); Ordered 02/19/25
Ordered By: Raymon Escobedo
Discharge Date and Time
Print Language: SERBIAN
[2025-02-19 15:27] VITALS: BP 142/54
== END 2025-02-19 17:12 | DRG 641 ==
LOC: 3 WEST ACU 08:25
PROVIDERS: Hospitalist; Nurse Practitioner Family; Physician Assistant Medical; ADMITTING PHYSICIAN Hospitalist; ATTENDING PHYSICIAN Hospitalist; CONSULT PHYSICIAN Internal Medicine Nephrology; EMERGENCY PHYSICIAN Emergency Medicine; FAMILY PHYSICIAN Family Medicine
DX: E87.1 Hypo-osmolality and hyponatremia (principal); I48.19 Other persistent atrial fibrillation; I25.10 Atherosclerotic heart disease of native coronary artery without angina pectoris; T43.225A Adverse effect of selective serotonin reuptake inhibitors, initial encounter; I10 Essential (primary) hypertension; I70.1 Atherosclerosis of renal artery; G20.A1 Parkinson's disease without dyskinesia, without mention of fluctuations; K59.00 Constipation, unspecified; E83.42 Hypomagnesemia; K74.3 Primary biliary cirrhosis; E83.52 Hypercalcemia; E78.00 Pure hypercholesterolemia, unspecified; I49.5 Sick sinus syndrome; D64.9 Anemia, unspecified; E03.9 Hypothyroidism, unspecified; R63.1 Polydipsia; K21.9 Gastro-esophageal reflux disease without esophagitis; Z11.52 Encounter for screening for COVID-19; Z79.01 Long term (current) use of anticoagulants; Z79.890 Hormone replacement therapy; Z79.899 Other long term (current) drug therapy; Z85.3 Personal history of malignant neoplasm of breast; Z87.891 Personal history of nicotine dependence; Z86.73 Personal history of transient ischemic attack (TIA), and cerebral infarction without residual deficits; Z90.12 Acquired absence of left breast and nipple; Z95.0 Presence of cardiac pacemaker; Z95.5 Presence of coronary angioplasty implant and graft
CPT/HCPCS: 71046; 73600; 74019; 80048; 80053; 81003; 81015; 82728; 83540; 83550; 83735; 83935; 84100; 84300; 84439; 84443; 84550; 85025; 85027; 85045; 87086; 87502; 87811; 93005; 93288; 97116; 97162; 97167; 97530; 97535; 99285

== ENCOUNTER → 2025-02-21 10:41 | Outpatient (REF) | payer OTHER, SELFPAY ==
[2025-02-21 10:58] LABS: Hematocrit 31.3 % (37.0-47.0); Hemoglobin 10.3 g/dL (12.0-16.0); Mean Corp Hgb Conc. 32.9 g/dL (33.0-37.0); Mean Corpuscular Volume 92.1 fL (81.0-99.0); Nucleated Red Blood Cells % 0 %; Platelet Count 227 10^3/uL (130-400); Red Cell Dist. Width 13.8 % (11.5-14.5)
[2025-02-21 11:06] LABS: Blood Urea Nitrogen 14 mg/dl (7-17); Calcium 8.9 mg/dl (8.4-10.2); Carbon Dioxide 28 mmol/L (22-30); Chloride 98 mmol/L (98-107); Glucose 77 mg/dl (70-99); eGFR > 60.00
[2025-02-21 11:11] LABS: Potassium 4.8 mmol/L (3.5-5.1); Sodium 131 mmol/L (135-145)
== END ==
LOC: OLABP 10:41
PROVIDERS: ATTENDING PHYSICIAN Family Medicine
DX: I25.119 Atherosclerotic heart disease of native coronary artery with unspecified angina pectoris (principal); I49.5 Sick sinus syndrome; Z86.73 Personal history of transient ischemic attack (TIA), and cerebral infarction without residual deficits; Z95.0 Presence of cardiac pacemaker; G20.C Parkinsonism, unspecified; E87.1 Hypo-osmolality and hyponatremia; K74.5 Biliary cirrhosis, unspecified; D64.9 Anemia, unspecified; I10 Essential (primary) hypertension
CPT/HCPCS: 36415; 80048; 85025

== ENCOUNTER → 2025-02-25 11:16 | Outpatient (REF) | payer OTHER, SELFPAY ==
[2025-02-25 11:56] LABS: Blood Urea Nitrogen 15 mg/dl (7-17); Calcium 9.5 mg/dl (8.4-10.2); Carbon Dioxide 31 mmol/L (22-30); Chloride 96 mmol/L (98-107); Glucose 81 mg/dl (70-99); Potassium 5.5 mmol/L (3.5-5.1); Sodium 133 mmol/L (135-145); eGFR > 60.00
== END ==
LOC: OLABP 11:16
PROVIDERS: ATTENDING PHYSICIAN Family Medicine
DX: I25.119 Atherosclerotic heart disease of native coronary artery with unspecified angina pectoris (principal); I49.5 Sick sinus syndrome; Z86.73 Personal history of transient ischemic attack (TIA), and cerebral infarction without residual deficits; G20.C Parkinsonism, unspecified; E87.1 Hypo-osmolality and hyponatremia
CPT/HCPCS: 36415; 80048

== ENCOUNTER → 2025-02-26 11:57 | Outpatient (REF) | payer OTHER, SELFPAY ==
[2025-02-26 13:24] LABS: Blood Urea Nitrogen 15 mg/dl (7-17); Calcium 9.1 mg/dl (8.4-10.2); Carbon Dioxide 30 mmol/L (22-30); Chloride 99 mmol/L (98-107); Glucose 76 mg/dl (70-99); Potassium 5.4 mmol/L (3.5-5.1); Sodium 132 mmol/L (135-145); eGFR > 60.00
== END ==
LOC: OLABP 11:57
PROVIDERS: ATTENDING PHYSICIAN Family Medicine
DX: I25.119 Atherosclerotic heart disease of native coronary artery with unspecified angina pectoris (principal); I49.5 Sick sinus syndrome; Z86.73 Personal history of transient ischemic attack (TIA), and cerebral infarction without residual deficits; Z95.0 Presence of cardiac pacemaker; G20.C Parkinsonism, unspecified; E87.1 Hypo-osmolality and hyponatremia; D64.9 Anemia, unspecified; I10 Essential (primary) hypertension
CPT/HCPCS: 36415; 80048

== ENCOUNTER → 2025-02-27 09:53 | Outpatient (REF) | payer OTHER, SELFPAY ==
[2025-02-27 11:14] LABS: Blood Urea Nitrogen 13 mg/dl (7-17); Calcium 8.8 mg/dl (8.4-10.2); Carbon Dioxide 29 mmol/L (22-30); Chloride 99 mmol/L (98-107); Glucose 87 mg/dl (70-99); Magnesium 1.9 mg/dl (1.6-2.3); Potassium 4.5 mmol/L (3.5-5.1); Sodium 133 mmol/L (135-145); eGFR > 60.00
== END ==
LOC: OLABP 09:53
PROVIDERS: ATTENDING PHYSICIAN Family Medicine
DX: I25.119 Atherosclerotic heart disease of native coronary artery with unspecified angina pectoris (principal); I49.5 Sick sinus syndrome; Z86.73 Personal history of transient ischemic attack (TIA), and cerebral infarction without residual deficits; Z95.0 Presence of cardiac pacemaker; G20.C Parkinsonism, unspecified; E87.1 Hypo-osmolality and hyponatremia; K74.5 Biliary cirrhosis, unspecified; D64.9 Anemia, unspecified; I10 Essential (primary) hypertension
CPT/HCPCS: 36415; 80048; 83735

== ENCOUNTER → 2025-03-04 10:41 | Outpatient (REF) | payer OTHER, SELFPAY ==
[2025-03-04 11:22] LABS: Blood Urea Nitrogen 13 mg/dl (7-17); Calcium 9.1 mg/dl (8.4-10.2); Carbon Dioxide 29 mmol/L (22-30); Chloride 99 mmol/L (98-107); Glucose 84 mg/dl (70-99); Potassium 5.2 mmol/L (3.5-5.1); Sodium 133 mmol/L (135-145); eGFR > 60.00
== END ==
LOC: OLABP 10:41
PROVIDERS: ATTENDING PHYSICIAN Family Medicine
DX: I25.119 Atherosclerotic heart disease of native coronary artery with unspecified angina pectoris (principal); I49.5 Sick sinus syndrome; Z86.73 Personal history of transient ischemic attack (TIA), and cerebral infarction without residual deficits; Z95.0 Presence of cardiac pacemaker; G20.C Parkinsonism, unspecified; E87.1 Hypo-osmolality and hyponatremia; K74.5 Biliary cirrhosis, unspecified; D64.9 Anemia, unspecified; I10 Essential (primary) hypertension
CPT/HCPCS: 36415; 80048

== ENCOUNTER → 2025-03-05 12:00 | Outpatient (REF) | payer OTHER, SELFPAY ==
[2025-03-05 13:24] LABS: Blood Urea Nitrogen 12 mg/dl (7-17); Calcium 8.8 mg/dl (8.4-10.2); Carbon Dioxide 31 mmol/L (22-30); Chloride 99 mmol/L (98-107); Glucose 79 mg/dl (70-99); Potassium 4.1 mmol/L (3.5-5.1); Sodium 134 mmol/L (135-145); eGFR > 60.00
== END ==
LOC: OLABP 12:00
PROVIDERS: ATTENDING PHYSICIAN Family Medicine
DX: I25.119 Atherosclerotic heart disease of native coronary artery with unspecified angina pectoris (principal); I49.5 Sick sinus syndrome; G20.C Parkinsonism, unspecified; E87.1 Hypo-osmolality and hyponatremia; D64.9 Anemia, unspecified; I10 Essential (primary) hypertension
CPT/HCPCS: 36415; 80048

== ENCOUNTER 2025-03-09 14:55 | Inpatient (IN) | payer OTHER, SELFPAY ==
[2025-03-09] VITALS (12 sets, daily range): BP systolic 138–180; BP diastolic 56–99; BMI 23.9; BMI 23.1
--- NOTE | 2025-03-09 10:54 | ED.GENMED ---
History of Present Illness
General
Chief Complaint: Hallucinations
Source: patient, records and family
Exam Limitations: none
Time Seen by Provider: 03/09/25 10:33
Nursing documentation reviewed up to this point in time: agreed with
History of Present Illness
History of Present Illness:
84-year-old female from [facility] companied by her daughter 2 to 3 days of some confusion, decreased p.o. intake nausea and diarrhea after taking her meds was treated with IV fluids at [facility], meds for hyperkalemia, and Bactrim for UTI today
brought over due to persistent symptoms and visual hallucinations my evaluation she is awake alert oriented recognizes her daughter knows the year knows she is at the hospital
Past History
Past History
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
ED Past Surgical History: Cardiac (Pacemaker, PTCI) and Other (Mastectomy L, renal artery PTCI)
Social History
Tobacco: Former smoker
Alcohol: Occasional
Drug: None
Personal: Other
Living: alone
Employment: Retired
Family History
Family History: Other
Review of Systems
Review of Systems
All Other Systems: Not applicable
Constitutional: Reports fatigue; Denies fever
EENT: Reports no symptoms
Respiratory: Reports no symptoms
Cardiac: Reports no symptoms
ABD/GI: Reports nausea and diarrhea
: Reports urgency
Neurological: Reports weakness
Psychiatric: Reports hallucinations (Visual, auditory)
Phy Exam
Physical Exam
Physical Exam:
Physical Exam
General: no apparent distress, not acutely ill
Neck: No jaundice
Heart: s1/s2 regular rate and rhythm, no murmur. equal radial pulses.
Lungs: no acute respiratory distress. clear bilaterally
Abdomen: Soft not tender
Neuro: alert and oriented. no focal neurological deficits
Skin: no rash
Psychiatric: Tangential cooperative
Extremities: Trace edema
Sepsis
Sepsis Screening
Sepsis Assessment: Sepsis Ruled Out
Sepsis Screen
Sepsis Screen: Sepsis Ruled Out
Date: 03/09/25
Time: 12:19
Course
Orders/Labs/Results
Orders:
Orders
03/09/25 10:51
Electrocardiogram (*1) Stat
Reason for Study: Other
Other Reason for Exam: neuro symptoms
EKG- Treatment ONCE
03/09/25 11:13
Complete Blood Count/With Diff Urgent
Comprehensive Metabolic Panel Urgent
03/09/25 11:35
Urinalysis Reflex To Culture Urgent
Date Specimen was Collected: 03/09/25
Time Specimen was Collected: 11:27
Comment: st cath
Urine Microscopic Reflex Cult Urgent
Urine Culture Urgent
MARYURI Source: U
Specimen Description:
Date Specimen was Collected: 03/09/25
Time Specimen was Collected: 11:27
03/09/25 12:15
Add On- LAB Urgent
Tests Added?: urine culture
CefTRIAXone [Rocephin] 1,000 mg IV NOW STA
Abnormal Lab Results
03/09/25 03/09/25
11:13 11:35
WBC 15.3 H 10^3/uL
(4.8-10.8)
RBC 3.39 L 10^6/uL
(4.20-5.40)
Hgb 10.3 L g/dL
(12.0-16.0)
Hct 30.1 L %
(37.0-47.0)
MPV 11.2 H fL
(7.4-10.4)
Abs Immat Gran (auto) 0.1 H 10^3/uL
(0-0.05)
Absolute Neuts (auto) 12.3 H 10^3/uL
(1.4-6.5)
Absolute Lymphs (auto) 0.5 L 10^3/uL
(1.2-3.4)
Absolute Monos (auto) 2.3 H 10^3/uL
(0.1-0.6)
Neutrophils % 80.7 H %
(42.2-75.2)
Lymphocytes % 3.5 L %
(20.5-51.1)
Monocytes % 15.1 H %
(1.7-9.3)
Sodium 130 L mmol/L
(135-145)
Chloride 96 L mmol/L
(98-107)
BUN 18 H mg/dl
(7-17)
Ur Occult Blood Reflex 2+ A
(Negative)
Leukocyte Esterase Rfl 3+ A
(Negative)
Urine WBC (Reflex) 26-30 A /HPF
(0-5)
Urine Bacteria (Reflex) Many A
(Negative)
Urine Albumin (Reflex) 2+ A
(Neg - Trace)
03/09/25 11:13
03/09/25 11:13
Vital Signs
Initial and Last Documented VS:
Initial Vital Signs
BP
175/62
03/09/25 10:22
Last Documented Vital Signs
Temp Pulse Resp BP Pulse Ox
98.7 F 70 20 165/93 92
03/09/25 10:23 03/09/25 12:15 03/09/25 12:15 03/09/25 12:00 03/09/25 11:30
MDM/Problems Addressed
Differential Diagnosis Includes:
UTI toxic metabolic cephalopathy electrolyte abnormality
MDM/Problems Addressed:
Confusion
Chronic conditions affecting care: HTN and Neurological disorder
Acute Exacerbation and/or Progression of Chronic Illness: HTN and Neurological disorder
*Pulse Oximetry
SaO2: 90
Oxygen Mode of Delivery: Room air
Patient hypoxic: yes
*EKG
Interpreted by ED Provider?: Yes
Interpretation: abnormal
Comparison EKG: no comparison EKG present
Heart Rate: 78
Rate: normal
Rhythm: sinus
Ischemia: non-specific ST changes
*Hospice Executive Director Interpretation
Rate: normal
Interpretation: normal
Heart Rate: 78
Rhythm: sinus
*Critical Care Note
Total Time (30-74mins, 75-104mins- exclusive of procedures): Not Applicable
Update Note
Update Note:
1215 labs noted straight cath UA noted culture pending patient has been on antibiotics IV fluids treatment for hyperkalemia as an outpatient fairly maximal treatment believe will be prudent to admit her to the hospital
ED Attending Note
-
Portions of this chart may have been created with voice recognition software.� Occasional wrong word or��sound alike� substitutions may have occurred due to the inherent limitations of voice recognition software.
Discharge Plan
Departure
Patient Disposition: Admit
Date of Disposition: 03/09/25
Time of Disposition: 12:18
Admit to: Med/Surg
Presentation/result/management discussed w/ accepting MD/DO: Hospitalist
Patient with high blood pressure during this ER visit?: No
Condition: Fair
Discharge Problem:
Acute UTI, Delirium
Prescriptions:
No Action
ursodiol 300 MG capsule
600 mg PO HS
dabigatran etexilate [Pradaxa] 150 MG capsule
150 mg PO BID Qty: 60 1RF
isosorbide mononitrate 60 mg tablet extended release 24 hr
60 mg PO DAILY
metoprolol succinate 100 mg Tablet Extended Release 24 Hr
100 mg PO DAILY Qty: 30 0RF
cholecalciferol (vitamin D3) [Vitamin D3] 50 mcg (2,000 unit) Capsule
50 mcg PO DAILY
calcium carbonate 500 mg calcium (1,250 mg) Tablet
600 mg PO DAILY
pantoprazole [Protonix] 20 mg Tablet,Delayed Release (Dr/Ec)
20 mg PO BID
dofetilide 250 mcg capsule
250 mcg PO BID
metoprolol succinate 50 mg Tablet Extended Release 24 Hr
50 mg PO HS
valsartan 80 mg Tablet
80 mg PO DAILY
carbidopa-levodopa [Sinemet] 25-100 mg tablet
1 tab PO 0900,1300,1700,2100
Rx Instructions:
9a,1p,5p,9P
nifedipine 30 mg Tablet Extended Release 24hr
30 mg PO QPM
acetaminophen 325 mg tablet
650 mg PO Q4HPRN MDD 3000 mg PRN (Reason: mild pain/MCGHEE/temp> 100F)
atorvastatin 80 mg Tablet
80 mg PO HS Qty: 0 0RF
magnesium glycinate 100 mg Tablet
400 mg PO DAILY
ursodiol 300 mg Capsule
300 mg PO DAILY
Rx Instructions:
300 mg orally HS
clonidine HCl 0.1 mg tablet
0.05 mg PO Q6HPRN PRN (Reason: SBP>160)
carbidopa-levodopa 50-200 mg tablet extended release
1 tab PO DAILY@0000
cyanocobalamin (vitamin B-12) [Vitamin B-12] 1,000 mcg tablet
1,000 mcg PO DAILY
levothyroxine 100 mcg Tablet
100 mcg PO DAILY @ 0600 100 Days Qty: 100 0RF
sennosides-docusate sodium [Senna Plus] 8.6-50 mg Tablet
1 tab PO BID Qty: 14 0RF
Referrals:
Shellie Snell DO [Family Provider, General]
Interventions
Interventions:
ED-Suicide Risk Assessment Last Done: 03/09/25 10:38
ED- Neurological Assessment Last Done: 03/09/25 10:32
ED-Psychological Assessment Last Done: 03/09/25 10:37
Discharge Date and Time
Print Language: MOZAMBICAN
[2025-03-09 11:24] LABS: Hematocrit 30.1 % (37.0-47.0); Hemoglobin 10.3 g/dL (12.0-16.0); Mean Corp Hgb Conc. 34.2 g/dL (33.0-37.0); Mean Corpuscular Volume 88.8 fL (81.0-99.0); Nucleated Red Blood Cells % 0 %; Platelet Count 247 10^3/uL (130-400); Red Cell Dist. Width 13.6 % (11.5-14.5)
[2025-03-09 11:46] LABS: Urine Character Clear (Clear)
[2025-03-09 11:48] LABS: ALT (SGPT) < 10 U/L (0-35); AST (SGOT) 23 U/L (14-36); Albumin 3.5 g/dl (3.5-5.0); Alkaline Phosphatase 104 U/L (38-126); Blood Urea Nitrogen 18 mg/dl (7-17); Calcium 9.1 mg/dl (8.4-10.2); Carbon Dioxide 29 mmol/L (22-30); Chloride 96 mmol/L (98-107); Estimated Creatinine Clearance 34 ml/min; Glucose 94 mg/dl (70-99); Potassium 5.0 mmol/L (3.5-5.1); Sodium 130 mmol/L (135-145); Total Protein 6.8 g/dl (6.3-8.2); eGFR > 60.00
[2025-03-09 11:58] LABS: Urine Red Blood Cell 0-2 /HPF (0-2); Urine Squamous Cell 0-2 /LPF (Few); Urine White Cell 26-30 /HPF (0-5)
--- NOTE | 2025-03-09 12:20 | HPS.HSE ---
Family Physician
-
Family Physician: Shellie Snell, DO
Chief Complaint
-
confusion, decreased p.o. intake nausea and diarrhea
History of Present Illness
I could not get any information from the patient due to deliroum
Information gathered by chart review and speaking with the ER staff.
84F Former smoker, SNF @ [facility] seen at ER for evaluation:
- accompanied by her daughter
- reports 2 to 3 days of some confusion, decreased p.o. intake nausea and diarrhea was treated with IV fluids at [facility], meds for hyperkalemia,
- Bactrim for UTI
- persistent symptoms and visual hallucinations
Per ER evaluation she is awake alert oriented recognizes her daughter knows the year knows she is at the hospital
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 Gastritis
Pacemaker, PTCI) , renal artery PTCI
Medical History
Past Medical History
Past Medical History: Reports Other
Additional Past Medical History:
ASCVD (CAD, Carotid Stenosis, Renal Artery Stenosis)
Persistent Atrial Fibrillation
Hypertension
SSS s/p PPM
Parkinson's Disease
Hypothyroidism
Breast Cancer
GERD
Primary Biliary Cirrhosis
Past Surgical History: Reports Other
Additional Past Surgical History:
PTCA with Stent
Renal Artery PCI
Left Mastectomy
PPM Placement
Bilateral CEA
Social History
Tobacco: Former Smoker
Alcohol: Occasional
Drug: None
Family History
Family History: Not pertinent
Allergies / Home Medications
Allergies reflects when Allergies were last updated in [facility].
Home Medications with original date entered in [facility]
Allergy/Medication List:
Allergies
Allergy/AdvReac Type Severity Reaction Status Date / Time
adhesive Allergy Redness, Verified 11/18/24 18:52
rash
amiodarone Allergy tremors Verified 11/18/24 18:52
diltiazem Allergy Rash Verified 11/18/24 18:52
hydralazine (Hydralazine) Allergy RAMSEY, Verified 11/18/24 18:52
Fatigue,
Dizziness
Iodinated Contrast Media Allergy Rash and Verified 11/18/24 18:52
(Iodinated Contrast Media - Warmth
IV Dye)
iodine (Iodine) Allergy rash with Verified 11/18/24 18:52
ivp dye
omeprazole Allergy Nausea Verified 11/18/24 18:52
spironolactone Allergy kidney Verified 11/18/24 18:52
failure-
Hypercalcemia
Home Medications
ursodiol 300 mg capsule 600 mg PO HS Urinary issue 01/23/17
dabigatran etexilate 150 mg capsule (Pradaxa) 150 mg PO BID #60 caps 08/04/21
isosorbide mononitrate 60 mg tablet,extended release 24 hr 60 mg PO DAILY CHEST PAIN 05/18/22
metoprolol succinate 100 mg tablet,extended release 24 hr 100 mg PO DAILY #30 tabs 05/28/22
cholecalciferol (vitamin D3) 50 mcg (2,000 unit) capsule (Vitamin D3) 50 mcg PO DAILY Supplement 06/21/23
calcium carbonate 600 mg PO DAILY Supplement 12/07/23
pantoprazole 20 mg tablet,delayed release (Protonix) 20 mg PO BID 02/09/24
dofetilide 250 mcg capsule 250 mcg PO BID Arrhythmia 02/16/24
metoprolol succinate 50 mg tablet,extended release 24 hr 50 mg PO HS Blood Pressure 06/29/24
valsartan 80 mg tablet 80 mg PO DAILY Blood Pressure 06/29/24
carbidopa 25 mg-levodopa 100 mg tablet (Sinemet) 1 tab PO 0900,1300,1700,2100 Neurological Condition 11/08/24
acetaminophen 325 mg tablet 650 mg PO Q4HPRN PRN mild pain/MCGHEE/temp> 100F 11/18/24
nifedipine 30 mg tablet,extended release 24 hr 30 mg PO QPM Blood Pressure 11/18/24
atorvastatin 80 mg tablet 80 mg PO HS #0 tabs 11/21/24
levothyroxine 112 mcg tablet (Synthroid) 112 mcg PO DAILY 12/11/24
magnesium glycinate 100 mg (as glycinate) tablet 400 mg PO DAILY 12/12/24
carbidopa ER 50 mg-levodopa 200 mg tablet,extended release 1 tab PO DAILY@0000 02/13/25
clonidine HCl 0.1 mg tablet 0.05 mg PO Q6HPRN PRN SBP>160 02/13/25
cyanocobalamin (vitamin B-12) 1,000 mcg tablet (Vitamin B-12) 1,000 mcg PO DAILY 02/13/25
sertraline 25 mg tablet 25 mg PO DAILY 02/13/25
ursodiol 300 mg capsule 300 mg PO DAILY 02/13/25
Review of Systems
-
Constitutional: Reports No Symptoms
EENT: Reports No Symptoms
Respiratory: Reports No Symptoms
Cardiac: Reports No Symptoms
Abdomen/GI: Reports No Symptoms
: Reports No Symptoms
Musculoskeletal: Reports No Symptoms
Skin: Reports No Symptoms
Neurological: Reports No Symptoms
Endocrine: Reports No Symptoms
Hematologic/Lymphatic: Reports No Symptoms
Psych: Reports See HPI and Audio or Visual Hallucinations
Physical Exam
Vital Signs
Vital Signs
Temp Pulse Resp BP Pulse Ox
98.7 F 70 20 165/93 92
03/09/25 10:23 03/09/25 12:15 03/09/25 12:15 03/09/25 12:00 03/09/25 11:30
Physical Exam
General: Comfortable and Conversant
HEENT: Anicteric and Moist mucous membranes (dry)
Respiratory: Clear and Non Labored Respirations
Cardiac: S1/S2 and Regular Rhythm (A Paced rhythm )
GI: Soft and Non Tender
Rectal: Deferred by Provider
Musculoskeletal: No Clubbing, No Cyanosis and No Edema
Skin: Warm and Dry
Neuro: Awake, Alert and Nonfocal/grossly intact
Psych: Calm and Confused
Laboratory Results
-
03/09/25 11:13
03/09/25 11:13
Laboratory Results
Total Bilirubin 1.1 mg/dl (0.2-1.3) 03/09/25 11:13
AST 23 U/L (14-36) 03/09/25 11:13
ALT < 10 U/L (0-35) 03/09/25 11:13
Alkaline Phosphatase 104 U/L (38-126) 03/09/25 11:13
Data Reviewed
-
Medical Tests (Nuc Med, Echo, EKG etc): Report Reviewed by me
Lab Data: Discussed with Physician
Old Records: Reviewed
Impression/Plan
-
Vital Signs
Temp Pulse Resp BP Pulse Ox
98.7 F 70 20 165/93 92
03/09/25 10:23 03/09/25 12:15 03/09/25 12:15 03/09/25 12:00 03/09/25 11:30
02/21/25 03/09/25
06:45 11:13
WBC 9.0 15.3 H
Hgb 10.3 L 10.3 L
03/05/25 03/09/25
08:00 11:13
Sodium 134 L 130 L
Potassium 4.1 5.0
Chloride 99 96 L
Carbon Dioxide 31 H 29
Creatinine 0.7 0.8
eGFR > 60.00 > 60.00
03/09/25
11:35
Leukocyte Esterase Rfl 3+ A
Urine RBC 0-2
Urine WBC (Reflex) 26-30 A
Urine Bacteria (Reflex) Many A
Last hospitalist admission: 02/17/25 - 02/19/25
DC DXS:
Recurrent hyponatremia -suspect related to ongoing use of sertraline as well as polydipsia.
Hypomagnesemia
Abdominal pain and nausea
ASSESSMENT & PLAN
Pending Rx reconciliation
Hallucination due to Infective encephalopathy due to UTI +/_ Sinemet
partially treated UTI with OP Bactrim
Leucocytosis
No evidence of SIRS
- UCx
- Empiric IV CFTZ
- IV NS @ 60
- Trend MS and WCC
- Seroquel low dose 12.5mg PRN for AM & HS
Recurrent hyponatremia -suspect related to ongoing use of sertraline as well as polydipsia.
- observing off Sertraline since last admission
- Na 130 today.
- encourage solute intake
- Continue fluid restriction - total 1.2 L including 1 L of NS upon admission
Persistent AF
- on Pradaxa and Dofetilide
- metoprolol XL
ASCVD
CAD -stable
Hyperlipidemia
- Atorvastatin
- IMN
Essential hypertension -somewhat labile pressures noted.
Prior admission for hypertensive encephalopathy.
- on Metoprol XL
- increase Nifedipine in needed
- PRN clonidine
Hypothyroidism
-levothyroxine dose reduced to 100 mcg daily on 02/20
Parkinson disease
-continue Sinemet.
Primary biliary cirrhosis
Chronic Normocytic Anemia
Unintentional Overdose past history
DVT Px: Pradaxa
Full code
IP TLM
[2025-03-09] MEDS: ROCEPHIN 1000 MG IV (12:28)
--- NOTE | 2025-03-09 14:15 | CM ---
Patient seen at bedside in ED. Patient states that she lives at [facility] for last 2 weeks but was confused if she lives here now or where her daughter is. Patient transfer form lists admission date as 02/19/25. CM will call and request update regarding
patient status as Short term care or shelter care. Patient daughter not reachable by phone. CM will continue to follow for discharge planning needs.
Plan;return to SNF pending patient status/ insurance auth may be necessary
--- NOTE | 2025-03-09 18:20 | PTCARENOTE ---
rec'd pt from the ER. transferred to the bed. Only complaint of pain is her leg spasms from her parkinsons. NSS started as ordered. pt answered admission questions to the best of her ability. call lopez in reach . oriented to unit.
[2025-03-09] MEDS: SINEMET 25-100 1 TABLET PO ×2 (18:31→20:12)
[2025-03-09] MEDS: NSS 1000 IV (18:32)
[2025-03-09] MEDS: SENOKOT-S 1 TABLET PO (19:57)
[2025-03-09] MEDS: PROTONIX 20 MG PO (19:57)
[2025-03-09] MEDS: PRADAXA 150 MG PO (20:08)
[2025-03-09] MEDS: TIKOSYN 250 MCG PO (20:13)
[2025-03-09] MEDS: LIPITOR 80 MG PO (21:26)
[2025-03-09] MEDS: ACTIGALL 600 MG PO (21:26)
[2025-03-09] MEDS: TOPROL XL 50 MG PO (21:27)
[2025-03-09] MEDS: SINEMET CR 50/200 (EXTENDED RELEASE) 1 TABLET PO (23:03)
[2025-03-10] VITALS (7 sets, daily range): BP systolic 91–197; BP diastolic 55–74; PULSE 69; O2SAT 96
[2025-03-10] MEDS: SYNTHROID 100 MCG PO (05:17)
[2025-03-10 08:09] LABS: Hematocrit 31.3 % (37.0-47.0); Hemoglobin 10.1 g/dL (12.0-16.0); Mean Corp Hgb Conc. 32.3 g/dL (33.0-37.0); Mean Corpuscular Volume 90.2 fL (81.0-99.0); Nucleated Red Blood Cells % 0 %; Platelet Count 235 10^3/uL (130-400); Red Cell Dist. Width 13.9 % (11.5-14.5)
[2025-03-10] MEDS: VITAMIN D3 (cholecalciferol) 50 MCG PO (08:16)
[2025-03-10] MEDS: OSCAL CAL 500 500 MG PO (08:16)
[2025-03-10] MEDS: PROTONIX 20 MG PO ×2 (08:16→20:16)
[2025-03-10] MEDS: TIKOSYN 250 MCG PO ×2 (08:16→20:17)
[2025-03-10] MEDS: VITAMIN B-12 1000 MCG PO (08:17)
[2025-03-10] MEDS: TOPROL XL 100 MG PO (08:17)
[2025-03-10] MEDS: IMDUR (EXTENDED RELEASE) 60 MG PO (08:17)
[2025-03-10] MEDS: SENOKOT-S 1 TABLET PO ×2 (08:17→20:16)
[2025-03-10] MEDS: MAGNESIUM OXIDE 400 MG PO (08:17)
[2025-03-10] MEDS: PRADAXA 150 MG PO ×2 (08:17→20:16)
[2025-03-10] MEDS: DIOVAN 80 MG PO (08:17)
[2025-03-10] MEDS: ACTIGALL 300 MG PO (08:17)
[2025-03-10] MEDS: SINEMET 25-100 1 TABLET PO ×4 (08:22→20:19)
[2025-03-10 08:42] LABS: ALT (SGPT) < 10 U/L (0-35); AST (SGOT) 20 U/L (14-36); Albumin 3.2 g/dl (3.5-5.0); Alkaline Phosphatase 100 U/L (38-126); Blood Urea Nitrogen 14 mg/dl (7-17); Calcium 8.6 mg/dl (8.4-10.2); Carbon Dioxide 27 mmol/L (22-30); Chloride 100 mmol/L (98-107); Estimated Creatinine Clearance 39 ml/min; Glucose 71 mg/dl (70-99); Potassium 4.2 mmol/L (3.5-5.1); Sodium 133 mmol/L (135-145); Total Protein 6.1 g/dl (6.3-8.2); eGFR > 60.00
--- NOTE | 2025-03-10 11:59 | CM ---
Chart reviewed and recommendation is for skilled placement, options reviewed with patient and she has [facility], referral sent to [facility].
Plan; Await determinations from [facility] skilled.
[2025-03-10 12:45] LABS: Ammonia < 9 umol/L (9-30)
[2025-03-10] MEDS: ROCEPHIN 1000 MG IV (13:08)
[2025-03-10] MEDS: STERILE WATER FOR INJECTION 10 ML IV (13:09)
--- NOTE | 2025-03-10 15:55 | W.PN.HOSP.TC ---
Today's Communication/Plan
-
Continue antibiotics pending urine culture.
Plan of care discussed with patient and patient's daughter at the bedside
Assessment / Plan
Assessment / Plan
Impression:
Presentation with altered mental status including visual and auditory hallucinations.
Suspect toxic metabolic encephalopathy secondary to UTI in patient with Parkinson's disease per
UTI without evidence of sepsis, although complicated with TME.
Other conditions:
Parkinson's disease.
Chronic hyponatremia.
Persistent atrial fibrillation baseline anticoagulation with Pradaxa.
Essential hypertension
Dyslipidemia
Hypothyroidism on replacement.
Primary biliary cirrhosis, compensated.
Plan:
Toxic metabolic encephalopathy secondary to UTI in a patient with Parkinson's disease
Overall improved since admission
Exam with no focal findings.
Patient with primary biliary cirrhosis. Currently compensated. Ammonia level undetectable.
UTI
No generalized symptoms other than altered mental status.
Urine culture preliminary with gram-negative bacteria
Continue ceftriaxone follow cultures
Persistent atrial fibrillation.
Continue metoprolol, Tikosyn.
On anticoagulation with Pradaxa.
CAD.
Hypertension.
Dyslipidemia.
Continue preadmission regimen including Toprol, Imdur, clonidine, nifedipine, valsartan, atorvastatin
Parkinson disease continue Sinemet.
Recently off Seroquel
Recently off Zoloft due to hyponatremia
Chronic hyponatremia
Sodium stable 130�132. Continue monitoring
Full code.
Anticipated Discharge: 24 - 48 hours
Subjective/Interval History
-
Date of Service: March 10, 2025
Objective Data
-
Labs:
Laboratory Results
03/10/25
07:26
WBC 11.2 H
Hgb 10.1 L
Hct 31.3 L
Plt Count 235
Sodium 133 L
Potassium 4.2
Chloride 100
Carbon Dioxide 27
BUN 14
Creatinine 0.7
Glucose 71
Calcium 8.6
Total Bilirubin 0.6
AST 20
ALT < 10
Alkaline Phosphatase 100
Vital Signs:
Vital Signs
Temp Pulse Resp BP Pulse Ox
97.6 F 71 18 144/60 96
03/10/25 15:15 03/10/25 15:15 03/10/25 15:15 03/10/25 15:15 03/10/25 15:15
I&O
03/09/25 03/10/25 03/11/25
06:59 06:59 06:59
Intake Total 1160 / 1160
Output Total 300 / 300
Balance 860 / 860
Physical Exam
-
General: No Apparent Distress
Respiratory: Non Labored Respirations; Negative Accessory Resp Muscle Use
Cardiac: Regular Rhythm; Negative S1/S2
Neuro: AO x 3
Psych: Calm
[2025-03-10] MEDS: PROCARDIA XL (EXTENDED RELEASE) PO (18:00)
[2025-03-10] MEDS: PROCARDIA XL (EXTENDED RELEASE) 30 MG PO (19:26)
[2025-03-10] MEDS: ACTIGALL 600 MG PO (21:47)
[2025-03-10] MEDS: TOPROL XL 50 MG PO (21:47)
[2025-03-10] MEDS: LIPITOR 80 MG PO (21:47)
[2025-03-10] MEDS: SINEMET CR 50/200 (EXTENDED RELEASE) 1 TABLET PO (23:18)
[2025-03-11 03:51] VITALS: BP 118/56
[2025-03-11] MEDS: SYNTHROID 100 MCG PO (05:03)
[2025-03-11 07:25] VITALS: BP 139/99
[2025-03-11] MEDS: IMDUR (EXTENDED RELEASE) 60 MG PO (07:55)
[2025-03-11] MEDS: TIKOSYN 250 MCG PO (07:55)
[2025-03-11] MEDS: DIOVAN 80 MG PO (07:55)
[2025-03-11] MEDS: VITAMIN B-12 1000 MCG PO (07:55)
[2025-03-11] MEDS: TOPROL XL 100 MG PO (07:55)
[2025-03-11] MEDS: PROTONIX 20 MG PO (07:55)
[2025-03-11] MEDS: MAGNESIUM OXIDE 400 MG PO (07:55)
[2025-03-11] MEDS: VITAMIN D3 (cholecalciferol) 50 MCG PO (07:56)
[2025-03-11] MEDS: ACTIGALL 300 MG PO (07:56)
[2025-03-11] MEDS: SENOKOT-S 1 TABLET PO (07:56)
[2025-03-11] MEDS: OSCAL CAL 500 500 MG PO (07:57)
[2025-03-11] MEDS: PRADAXA 150 MG PO (07:57)
[2025-03-11] MEDS: SINEMET 25-100 1 TABLET PO ×3 (08:04→16:56)
[2025-03-11 08:51] LABS: Hematocrit 31.6 % (37.0-47.0); Hemoglobin 10.1 g/dL (12.0-16.0); Mean Corp Hgb Conc. 32.0 g/dL (33.0-37.0); Mean Corpuscular Volume 89.8 fL (81.0-99.0); Nucleated Red Blood Cells % 0 %; Platelet Count 258 10^3/uL (130-400); Red Cell Dist. Width 14.1 % (11.5-14.5)
--- NOTE | 2025-03-11 08:57 | CM ---
Addendum entered by Holly Olsen 03/11/25 13:53:
[facility]
Report [phone]

Addendum entered by Holly Olsen 03/11/25 13:43:
Per physician patient is stable for discharge today back to [facility] Auth received for skilled placement at [facility], for 4 days skilled Level 1, 03/11-03/14, Auth [id number], .
Original Note:
Chart reviewed and plan is for skilled placement at [facility] 3 rd floor. Patient will need Auth.
Plan; Skilled placement at [facility], patient to return to 3rd floor, patient needs Auth.
[2025-03-11 09:24] LABS: ALT (SGPT) < 10 U/L (0-35); AST (SGOT) 18 U/L (14-36); Albumin 3.2 g/dl (3.5-5.0); Alkaline Phosphatase 103 U/L (38-126); Blood Urea Nitrogen 11 mg/dl (7-17); Calcium 8.8 mg/dl (8.4-10.2); Carbon Dioxide 31 mmol/L (22-30); Chloride 98 mmol/L (98-107); Estimated Creatinine Clearance 39 ml/min; Glucose 98 mg/dl (70-99); Potassium 4.3 mmol/L (3.5-5.1); Sodium 132 mmol/L (135-145); Total Protein 6.1 g/dl (6.3-8.2); eGFR > 60.00
[2025-03-11 11:10] VITALS: BP 118/63
[2025-03-11] MEDS: STERILE WATER FOR INJECTION 10 ML IV (11:47)
[2025-03-11] MEDS: ROCEPHIN 1000 MG IV (11:47)
--- NOTE | 2025-03-11 13:05 | W.PN.HOSP.TC ---
Today's Communication/Plan
-
Continued ceftriaxone with plan to transition to Cipro upon discharge
Discharge planning with SNF placement pending insurance authorization
Assessment / Plan
Assessment / Plan
Impression:
Presentation with altered mental status including visual and auditory hallucinations.
Suspect toxic metabolic encephalopathy secondary to UTI in patient with Parkinson's disease per
UTI without evidence of sepsis, although complicated with TME.
Other conditions:
Parkinson's disease.
Chronic hyponatremia.
Persistent atrial fibrillation baseline anticoagulation with Pradaxa.
Essential hypertension
Dyslipidemia
Hypothyroidism on replacement.
Primary biliary cirrhosis, compensated.
Plan:
Toxic metabolic encephalopathy secondary to UTI in a patient with Parkinson's disease
Overall improved since admission
Exam with no focal findings.
Patient with primary biliary cirrhosis. Currently compensated. Ammonia level undetectable.
UTI
No generalized symptoms other than altered mental status.
Urine culture with E. coli resistant to Bactrim (probably reason not responding to outpatient antibiotics)
Continued ceftriaxone, okay to transition to Cipro upon discharge to complete total 5 days of antibiotics
Persistent atrial fibrillation.
Continue metoprolol, Tikosyn.
On anticoagulation with Pradaxa.
CAD.
Hypertension.
Dyslipidemia.
Continue preadmission regimen including Toprol, Imdur, clonidine, nifedipine, valsartan, atorvastatin
Parkinson disease continue Sinemet.
Recently off Seroquel
Recently off Zoloft due to hyponatremia
Chronic hyponatremia
Sodium stable 130�132. Continue monitoring
Full code.
Anticipated Discharge: Within 24 hours
Subjective/Interval History
-
Date of Service: March 11, 2025
Objective Data
-
Labs:
Laboratory Results
03/11/25
08:36
WBC 6.4
Hgb 10.1 L
Hct 31.6 L
Plt Count 258
Sodium 132 L
Potassium 4.3
Chloride 98
Carbon Dioxide 31 H
BUN 11
Creatinine 0.7
Glucose 98
Calcium 8.8
Total Bilirubin 0.7
AST 18
ALT < 10
Alkaline Phosphatase 103
Vital Signs:
Vital Signs
Temp Pulse Resp BP Pulse Ox
98.2 F 70 16 118/63 95
03/11/25 11:10 03/11/25 11:10 03/11/25 11:10 03/11/25 11:10 03/11/25 11:10
I&O
03/10/25 03/11/25 03/12/25
06:59 06:59 06:59
Intake Total 1160 / 1160 480 / 480
Output Total 300 / 300
Balance 860 / 860 480 / 480
Physical Exam
-
General: No Apparent Distress
Respiratory: Non Labored Respirations; Negative Accessory Resp Muscle Use
Cardiac: Regular Rhythm; Negative S1/S2
Neuro: AO x 3
Psych: Calm
--- NOTE | 2025-03-11 13:54 | W.DS.TRANS ---
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
-
Discharge Instructions:
Sleep Apnea Risk Low
Discharge Diagnosis/Procedures UTI
TME
Parkinson's disease.
Chronic hyponatremia.
Persistent atrial fibrillation baseline
anticoagulation with Pradaxa.
Essential hypertension
Dyslipidemia
Hypothyroidism on replacement.
Primary biliary cirrhosis, compensated.
Diet Regular
Instructions:
Stand-Alone Forms:
Changes to Home Medications: Yes
Discharge Medications:
DC Medications w/original date entered in [employer]
ursodiol 300 mg capsule 600 mg PO HS Gastrointestinal Issue 01/23/17
isosorbide mononitrate 60 mg tablet,extended release 24 hr 60 mg PO DAILY Heart Disease/Condition 05/18/22
cholecalciferol (vitamin D3) 50 mcg (2,000 unit) capsule (Vitamin D3) 50 mcg PO DAILY Supplement 06/21/23
calcium carbonate 500 mg PO DAILY Supplement 12/07/23
pantoprazole 20 mg tablet,delayed release (Protonix) 20 mg PO BID Gastrointestinal Issue 02/09/24
dofetilide 250 mcg capsule 250 mcg PO BID Arrhythmia 02/16/24
valsartan 80 mg tablet 80 mg PO DAILY Blood Pressure 06/29/24
carbidopa 25 mg-levodopa 100 mg tablet (Sinemet) 1 tab PO QID parkinson's disease 11/08/24
acetaminophen 325 mg tablet 650 mg PO Q4HPRN PRN mild pain/MCGHEE/temp> 100F 11/18/24
nifedipine 30 mg tablet,extended release 24 hr 30 mg PO QPM Blood Pressure 11/18/24
magnesium glycinate 100 mg (as glycinate) tablet 400 mg PO DAILY Supplement 12/12/24
carbidopa ER 50 mg-levodopa 200 mg tablet,extended release 1 tab PO DAILY@0000 parkinson's disease 02/13/25
clonidine HCl 0.1 mg tablet 0.05 mg PO Q6HPRN PRN SBP>160 02/13/25
cyanocobalamin (vitamin B-12) 1,000 mcg tablet (Vitamin B-12) 1,000 mcg PO DAILY Supplement 02/13/25
ursodiol 300 mg capsule 300 mg PO DAILY Gastrointestinal Issue 02/13/25
atorvastatin 80 mg tablet 80 mg PO HS cholesterol 03/09/25
bisacodyl 10 mg rectal suppository (Dulcolax (bisacodyl)) 10 mg ND DAILYPRN PRN if no bm aftr mom give on day 5 03/09/25
calcium carbonate (Tums) 200 mg PO Q8HPRN PRN gerd 03/09/25
cyclobenzaprine 5 mg tablet 7.5 mg PO HS spasms 03/09/25
cyclobenzaprine 5 mg tablet 7.5 mg PO TIDPRN PRN spasms 03/09/25
dabigatran etexilate 150 mg capsule (Pradaxa) 150 mg PO BID a-fib 03/09/25
levothyroxine 100 mcg tablet 100 mcg PO DAILY hypothyroidism 03/09/25
magnesium hydroxide 400 mg/5 mL oral suspension (Milk of Magnesia) 2,400 mg PO [id number] PRN if no bm by 3rd day give on day 4 03/09/25
metoprolol succinate 100 mg tablet,extended release 24 hr 100 mg PO BID Blood Pressure 03/09/25
sennosides 8.6 mg-docusate sodium 50 mg tablet (Senna Plus) 1 tab PO BID Constipation 03/09/25
sodium chloride 1 gram tablet 1,000 mg PO BID Supplement 03/09/25
sodium phosphates 19 gram-7 gram/118 mL enema (Fleet Enema) 118 ml ND DAILYPRN PRN if no bm aftr dulcolax give on day 6 03/09/25
ciprofloxacin HCl 500 mg tablet 500 mg PO BID #6 tabs 03/11/25
levothyroxine 100 mcg tablet 100 mcg PO DAILY @ 0600 #30 tabs 03/11/25
metoprolol succinate 100 mg tablet,extended release 24 hr 100 mg PO DAILY #30 tabs 03/11/25
metoprolol succinate 50 mg tablet,extended release 24 hr 50 mg PO HS #30 tabs 03/11/25
Home Medication Changes
Course to complete as outpatient.
Pending Results: No
[2025-03-11 16:00] VITALS: BP 155/59
[2025-03-11] MEDS: PROCARDIA XL (EXTENDED RELEASE) 30 MG PO (16:55)
== END 2025-03-11 18:47 | DRG 689 ==
LOC: 4 WEST ACU 14:55
PROVIDERS: Clinical Nurse Specialist Family Health; ADMITTING PHYSICIAN Internal Medicine; ATTENDING PHYSICIAN Internal Medicine; EMERGENCY PHYSICIAN Emergency Medicine; FAMILY PHYSICIAN Family Medicine
DX: N39.0 Urinary tract infection, site not specified (principal); G92.8 Other toxic encephalopathy; I48.19 Other persistent atrial fibrillation; E87.1 Hypo-osmolality and hyponatremia; R44.0 Auditory hallucinations; Z16.29 Resistance to other single specified antibiotic; E87.5 Hyperkalemia; R44.1 Visual hallucinations; E03.9 Hypothyroidism, unspecified; E78.00 Pure hypercholesterolemia, unspecified; I10 Essential (primary) hypertension; G20.A1 Parkinson's disease without dyskinesia, without mention of fluctuations; I70.1 Atherosclerosis of renal artery; K74.3 Primary biliary cirrhosis; E83.42 Hypomagnesemia; B96.20 Unspecified Escherichia coli [E. coli] as the cause of diseases classified elsewhere; I25.10 Atherosclerotic heart disease of native coronary artery without angina pectoris; D64.9 Anemia, unspecified; K21.9 Gastro-esophageal reflux disease without esophagitis; Z60.2 Problems related to living alone; Z87.440 Personal history of urinary (tract) infections; Z86.73 Personal history of transient ischemic attack (TIA), and cerebral infarction without residual deficits; Z85.3 Personal history of malignant neoplasm of breast; Z79.890 Hormone replacement therapy; Z87.891 Personal history of nicotine dependence; Z95.0 Presence of cardiac pacemaker; Z90.12 Acquired absence of left breast and nipple; Z95.5 Presence of coronary angioplasty implant and graft; Z91.041 Radiographic dye allergy status; Z88.8 Allergy status to other drugs, medicaments and biological substances; Z91.048 Other nonmedicinal substance allergy status; Z79.01 Long term (current) use of anticoagulants
CPT/HCPCS: 80053; 81003; 81015; 82140; 85025; 87070; 87077; 87086; 87186; 93005; 97163; 99285

== ENCOUNTER → 2025-03-14 11:36 | Outpatient (REF) | payer OTHER, SELFPAY ==
[2025-03-14 13:46] LABS: Hematocrit 29.0 % (37.0-47.0); Hemoglobin 9.4 g/dL (12.0-16.0); Mean Corp Hgb Conc. 32.4 g/dL (33.0-37.0); Mean Corpuscular Volume 92.4 fL (81.0-99.0); Nucleated Red Blood Cells % 0 %; Platelet Count 291 10^3/uL (130-400); Red Cell Dist. Width 13.9 % (11.5-14.5)
[2025-03-14 14:17] LABS: Blood Urea Nitrogen 9 mg/dl (7-17); Calcium 8.8 mg/dl (8.4-10.2); Carbon Dioxide 28 mmol/L (22-30); Chloride 100 mmol/L (98-107); Glucose 86 mg/dl (70-99); Potassium 6.0 mmol/L (3.5-5.1); Sodium 133 mmol/L (135-145); eGFR > 60.00
== END ==
LOC: OLABP 11:36
PROVIDERS: ATTENDING PHYSICIAN Family Medicine
DX: I25.119 Atherosclerotic heart disease of native coronary artery with unspecified angina pectoris (principal); I49.5 Sick sinus syndrome; Z86.73 Personal history of transient ischemic attack (TIA), and cerebral infarction without residual deficits; Z95.0 Presence of cardiac pacemaker; G20.C Parkinsonism, unspecified; E87.1 Hypo-osmolality and hyponatremia; K74.5 Biliary cirrhosis, unspecified; D64.9 Anemia, unspecified; I10 Essential (primary) hypertension
CPT/HCPCS: 36415; 80048; 85025

== ENCOUNTER → 2025-03-17 09:42 | Outpatient (REF) | payer OTHER, SELFPAY ==
[2025-03-17 12:25] LABS: Blood Urea Nitrogen 11 mg/dl (7-17); Calcium 8.9 mg/dl (8.4-10.2); Carbon Dioxide 31 mmol/L (22-30); Chloride 99 mmol/L (98-107); Glucose 84 mg/dl (70-99); Potassium 4.4 mmol/L (3.5-5.1); Sodium 134 mmol/L (135-145); eGFR > 60.00
== END ==
LOC: OLABP 09:42
PROVIDERS: ATTENDING PHYSICIAN Family Medicine
DX: I25.119 Atherosclerotic heart disease of native coronary artery with unspecified angina pectoris (principal); I49.5 Sick sinus syndrome; Z86.73 Personal history of transient ischemic attack (TIA), and cerebral infarction without residual deficits; Z95.0 Presence of cardiac pacemaker; G20.C Parkinsonism, unspecified; E87.1 Hypo-osmolality and hyponatremia; K74.5 Biliary cirrhosis, unspecified; D64.9 Anemia, unspecified; I10 Essential (primary) hypertension
CPT/HCPCS: 36415; 80048

== ENCOUNTER → 2025-03-17 21:00 | Outpatient (REF) | payer OTHER, SELFPAY ==
[2025-03-18 12:30] LABS: Urine Character Clear (Clear)
[2025-03-18 12:39] LABS: Urine Red Blood Cell 0-2 /HPF (0-2); Urine Squamous Cell 26-30 /LPF (Few)
== END ==
LOC: OLABP 21:00
PROVIDERS: ATTENDING PHYSICIAN Family Medicine
DX: I25.119 Atherosclerotic heart disease of native coronary artery with unspecified angina pectoris (principal); I49.5 Sick sinus syndrome; Z86.73 Personal history of transient ischemic attack (TIA), and cerebral infarction without residual deficits; Z95.0 Presence of cardiac pacemaker; G20.C Parkinsonism, unspecified; E87.1 Hypo-osmolality and hyponatremia; K74.5 Biliary cirrhosis, unspecified; D64.9 Anemia, unspecified; I10 Essential (primary) hypertension
CPT/HCPCS: 81003; 81015; 87086

== ENCOUNTER → 2025-03-18 12:09 | Outpatient (REF) | payer OTHER, SELFPAY ==
[2025-03-18 12:26] LABS: Hematocrit 28.0 % (37.0-47.0); Hemoglobin 8.9 g/dL (12.0-16.0); Mean Corp Hgb Conc. 31.8 g/dL (33.0-37.0); Mean Corpuscular Volume 90.0 fL (81.0-99.0); Nucleated Red Blood Cells % 0 %; Platelet Count 281 10^3/uL (130-400); Red Cell Dist. Width 13.7 % (11.5-14.5)
== END ==
LOC: OLABP 12:09
PROVIDERS: ATTENDING PHYSICIAN Family Medicine
DX: I25.119 Atherosclerotic heart disease of native coronary artery with unspecified angina pectoris (principal); I10 Essential (primary) hypertension; D64.9 Anemia, unspecified; K74.5 Biliary cirrhosis, unspecified; E87.1 Hypo-osmolality and hyponatremia; G20.C Parkinsonism, unspecified
CPT/HCPCS: 36415; 85025

== ENCOUNTER 2025-03-18 14:29 | Observation (INO) | payer OTHER, SELFPAY ==
[2025-03-18] VITALS (11 sets, daily range): BP systolic 95–180; BP diastolic 45–60; BMI 22.2
--- NOTE | 2025-03-18 09:16 | ED.GENMED ---
History of Present Illness
<JANET Ernandez - Last Filed: 03/18/25 13:17>
General
Chief Complaint: Seizure
Source: patient, ambulance crew and fpc
Exam Limitations: none
Time Seen by Provider: 03/18/25 08:53
Nursing documentation reviewed up to this point in time: agreed with
History of Present Illness
History of Present Illness:
Patient is an 84-year-old female with history of A-fib stroke reflux presents to the ER for possible seizure. Patient is currently in [facility] rehab. [facility] Nurse reports pt had a seizure for approx 20-25 seconds with periods of apnea.
Past History
<JANET Ernandez - Last Filed: 03/18/25 13:17>
Past History
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
ED Past Surgical History: Cardiac (Pacemaker, PTCI) and Other (Mastectomy L, renal artery PTCI)
Social History
Tobacco: Former smoker
Alcohol: Occasional
Drug: None
Personal: Other
Living: alone
Employment: Retired
Family History
Family History: Other
Phy Exam
<JANET Ernandez - Last Filed: 03/18/25 13:17>
General Physical Exam
General Presentation: no apparent distress
General age: appears stated age
General Skin: warm and dry
General Habitus: elderly
General Mental: alert
General Hydration: dry mucous membranes
ENT Exam
ENT Exam: other (+ Ecchymotic area of contusion to right lateral tongue no lacerations )
Cardiovascular Exam
Cardiovascular Exam: regular rate/rhythm, no murmur and normal peripheral pulses
Pulmonary Exam
Pulmonary Exam: lungs clear and no respiratory distress
Neurological Exam
Neurological Exam: alert, no motor deficits, no sensory deficits and other (Minimally confused follows commands)
Musculoskeletal Exam
Musculoskeletal Exam: full ROM
Skin Exam
Skin Exam: normal color and warm/dry
Psychiatric Exam
Psychiatric Exam: normal mood/affect
Course
<JANET Ernandez - Last Filed: 03/18/25 13:17>
Orders/Labs/Results
Orders:
Orders
03/18/25 09:16
CT Head W/o Iv Contrast Urgent
Comment:
Reason For Exam: new onset seizure
03/18/25 09:17
Electrocardiogram (*1) Stat
Reason for Study: Abdominal Pain
Cardiac Monitoring- Treatment ONCE
EKG- Treatment ONCE
IV Insert/Care/Rem.- Treatment PRN
0.9% Sodium Chloride 500 ml [Nss] 500 ml IV BOLUS
03/18/25 09:25
Straight cath- Treatment ONCE
03/18/25 09:35
Complete Blood Count/With Diff Urgent
Comprehensive Metabolic Panel Urgent
03/18/25 10:10
Urinalysis Reflex To Culture Urgent
Date Specimen was Collected: 03/18/25
Time Specimen was Collected: 09:39
Urine Microscopic Reflex Cult Urgent
Urine Culture Urgent
MARYURI Source: U
Specimen Description:
Date Specimen was Collected: 03/18/25
Time Specimen was Collected: 09:39
Abnormal Lab Results
03/18/25 03/18/25 03/18/25
09:17 09:35 10:10
RBC 3.37 L 10^6/uL
(4.20-5.40)
Hgb 9.7 L g/dL
(12.0-16.0)
Hct 29.2 L %
(37.0-47.0)
MPV 10.9 H fL
(7.4-10.4)
Absolute Lymphs (auto) 0.8 L 10^3/uL
(1.2-3.4)
Absolute Monos (auto) 1.1 H 10^3/uL
(0.1-0.6)
Lymphocytes % 10.1 L %
(20.5-51.1)
Monocytes % 13.0 H %
(1.7-9.3)
Sodium 131 L mmol/L
(135-145)
Glucose 103 H mg/dl
(70-99)
Leukocyte Esterase Rfl 1+ A
(Negative)
Urine Albumin (Reflex) 1+ A
(Neg - Trace)
POC Glucose 103 H mg/dl
(70-99)
03/18/25 09:35
03/18/25 09:35
Vital Signs
Initial and Last Documented VS:
Initial Vital Signs
Temp Pulse Resp BP Pulse Ox
97.7 F 70 16 167/56 95
03/18/25 09:04 03/18/25 09:04 03/18/25 09:04 03/18/25 09:04 03/18/25 09:04
Last Documented Vital Signs
Temp Pulse Resp BP Pulse Ox
97.7 F 70 16 180/59 97
03/18/25 09:04 03/18/25 10:00 03/18/25 10:00 03/18/25 10:17 03/18/25 10:00
Tax Accounting Assistant consulted with Physician
Tax Accounting Assistant consulted with physician?: Yes
Name of Physician Consulted: Lebron
<Donnie Diana, DO - Last Filed: 03/18/25 10:28>
Orders/Labs/Results
Orders:
Orders
03/18/25 09:16
CT Head W/o Iv Contrast Urgent
Comment:
Reason For Exam: new onset seizure
03/18/25 09:17
Electrocardiogram (*1) Stat
Reason for Study: Abdominal Pain
Cardiac Monitoring- Treatment ONCE
EKG- Treatment ONCE
IV Insert/Care/Rem.- Treatment PRN
0.9% Sodium Chloride 500 ml [Nss] 500 ml IV BOLUS
03/18/25 09:25
Straight cath- Treatment ONCE
03/18/25 09:35
Complete Blood Count/With Diff Urgent
Comprehensive Metabolic Panel Urgent
03/18/25 10:10
Urinalysis Reflex To Culture Urgent
Date Specimen was Collected: 03/18/25
Time Specimen was Collected: 09:39
Urine Microscopic Reflex Cult Urgent
Urine Culture Urgent
MARYURI Source: U
Specimen Description:
Date Specimen was Collected: 03/18/25
Time Specimen was Collected: 09:39
Abnormal Lab Results
03/18/25 03/18/25 03/18/25
09:17 09:35 10:10
RBC 3.37 L 10^6/uL
(4.20-5.40)
Hgb 9.7 L g/dL
(12.0-16.0)
Hct 29.2 L %
(37.0-47.0)
MPV 10.9 H fL
(7.4-10.4)
Absolute Lymphs (auto) 0.8 L 10^3/uL
(1.2-3.4)
Absolute Monos (auto) 1.1 H 10^3/uL
(0.1-0.6)
Lymphocytes % 10.1 L %
(20.5-51.1)
Monocytes % 13.0 H %
(1.7-9.3)
Sodium 131 L mmol/L
(135-145)
Glucose 103 H mg/dl
(70-99)
Leukocyte Esterase Rfl 1+ A
(Negative)
Urine Albumin (Reflex) 1+ A
(Neg - Trace)
POC Glucose 103 H mg/dl
(70-99)
03/18/25 09:35
03/18/25 09:35
Vital Signs
Initial and Last Documented VS:
Initial Vital Signs
Temp Pulse Resp BP Pulse Ox
97.7 F 70 16 167/56 95
03/18/25 09:04 03/18/25 09:04 03/18/25 09:04 03/18/25 09:04 03/18/25 09:04
Last Documented Vital Signs
Temp Pulse Resp BP Pulse Ox
97.7 F 70 16 180/59 97
03/18/25 09:04 03/18/25 10:00 03/18/25 10:00 03/18/25 10:17 03/18/25 10:00
<JANET Ernandez - Last Filed: 03/18/25 13:17>
MDM/Problems Addressed
Differential Diagnosis Includes:
Not limited to seizure dehydration electrolyte abnormality infection/UTI
MDM/Problems Addressed:
As documented patient is an 84-year-old female with history Parkinson's with witnessed seizure by nursing care facility lasting approximately 20-25 seconds. Patient presents awake alert she has no recollection. She has a contusion to her lip no
urinary incontinence. Daughter at bedside reports patient did have some jerking of her arms yesterday but no seizure activity was witnessed by her yesterday. Patient presents awake alert however confused to certain questions however no acute
distress with no seizure activity here in the ER. Patient does have contusion to tongue likely from biting injury during seizure patient has a history of hyponatremia however sodium is 131 here. CAT scan pending at this time we will plan for
admission. UTI appears mildly infected will give a dose of rocephin .
Case discussed with neurology Sai amanda.
Patient was monitored here however still not completely her baseline as per family. Family does not feel comfortable with discharge home. With UTI, new onset seizure ,along with patient's age would recommend admission
Chronic conditions affecting care:
Parkinson's
<JANET Ernandez - Last Filed: 03/18/25 13:17>
*Radiology
Radiology exam reviewed: radiology read reviewed
*Pulse Oximetry
SaO2: 95
Oxygen Mode of Delivery: Room air
Patient hypoxic: no
*EKG
Interpreted by ED Provider?: Yes
Heart Rate: 70
Rate: normal
Rhythm: other (atrial paced )
*Critical Care Note
Total Time (30-74mins, 75-104mins- exclusive of procedures): Not Applicable
<JANET Ernandez - Last Filed: 03/18/25 13:17>
Patient Management
Discussion with other providers: Automotive Quality Engineer (neuro DR barron )
ED Attending Note
<JANET Ernandez - Last Filed: 03/18/25 13:17>
-
Portions of this chart may have been created with voice recognition software.� Occasional wrong word or��sound alike� substitutions may have occurred due to the inherent limitations of voice recognition software.
<Donnie Diana DO - Last Filed: 03/18/25 10:28>
ED Attending Note
Patient seen and examined by attending physician: Yes
I performed the substantive portion of visit, reviewed & personally made and approve the management plan that is documented in note by myself or DARIEL.: Yes
ED Attending Note:
I have seen and evaluated the patient with a [id number] encounter. I have spoken to the advance practicer provider and involved in the medical history, the physical exam, medical decision making.
Evaluation and management service: agree unless noted differently below.
Results interpretation: agree unless noted differently below.
Focused HPI: 84-year-old female presenting for evaluation of possible seizure. She had a witnessed tonic-clonic type shaking episode where she was unresponsive. She did bite her tongue. She denies prior history of seizures but did notice
uncontrollable arm twitching yesterday. She did have recent changes to her Parkinson's medications.
Physical exam: Sitting in bed comfortably. Minor tongue bite to tongue. No focal neurodeficits
Medical Decision Making: Will obtain CT head and basic blood work. Will likely err on the side of admission given her age and new onset seizure-like activity.
Discharge Plan
Departure
Patient Disposition: Admit
Date of Disposition: 03/18/25
Time of Disposition: 13:14
Admit to: Med/Surg
Admit to doctor: hospitalist
Presentation/result/management discussed w/ accepting MD/DO: Hospitalist
Patient with high blood pressure during this ER visit?: Yes
Condition: Fair
Covid-19: Not Applicable
Discharge Problem:
New onset seizure, Acute UTI
Prescriptions:
No Action
ursodiol 300 MG capsule
600 mg PO HS
isosorbide mononitrate 60 mg tablet extended release 24 hr
60 mg PO DAILY
cholecalciferol (vitamin D3) [Vitamin D3] 50 mcg (2,000 unit) Capsule
50 mcg PO DAILY
calcium carbonate 500 mg calcium (1,250 mg) Tablet
500 mg PO DAILY
pantoprazole [Protonix] 20 mg Tablet,Delayed Release (Dr/Ec)
20 mg PO BID
dofetilide 250 mcg capsule
250 mcg PO BID
valsartan 80 mg Tablet
80 mg PO DAILY
carbidopa-levodopa [Sinemet] 25-100 mg tablet
1 tab PO QID
nifedipine 30 mg Tablet Extended Release 24hr
30 mg PO QPM
acetaminophen 325 mg tablet
650 mg PO Q4HPRN PRN (Reason: mild pain/MCGHEE/temp> 100F)
ursodiol 300 mg Capsule
300 mg PO DAILY
clonidine HCl 0.1 mg tablet
0.05 mg PO Q6HPRN PRN (Reason: SBP>160)
carbidopa-levodopa 50-200 mg tablet extended release
1 tab PO DAILY@0000
cyanocobalamin (vitamin B-12) [Vitamin B-12] 1,000 mcg tablet
1,000 mcg PO DAILY
magnesium hydroxide [Milk of Magnesia] 400 mg/5 mL Suspension
2,400 mg PO DAILYPRN PRN (Reason: if no bm by 3rd day give on day 4)
bisacodyl [Dulcolax (bisacodyl)] 10 mg Suppository
10 mg FL DAILYPRN PRN (Reason: if no bm aftr mom give on day 5)
calcium carbonate [Tums] 200 mg calcium (500 mg) Tablet,Chewable
200 mg PO Q8HPRN PRN (Reason: gerd)
Fleet Enema 19-7 gram/118 mL Enema
118 ml FL DAILYPRN PRN (Reason: if no bm aftr dulcolax give on day 6)
cyclobenzaprine 5 mg Tablet
7.5 mg PO HS
cyclobenzaprine 5 mg Tablet
7.5 mg PO TIDPRN PRN (Reason: spasms)
atorvastatin 80 mg tablet
80 mg PO HS
sennosides-docusate sodium [Senna Plus] 8.6-50 mg tablet
1 tab PO BID
levothyroxine 100 mcg tablet
100 mcg PO DAILY
dabigatran etexilate [Pradaxa] 150 MG capsule
150 mg PO BID
metoprolol succinate 50 mg Tablet Extended Release 24 Hr
50 mg PO HS Qty: 30 0RF
metoprolol succinate 100 mg Tablet Extended Release 24 Hr
100 mg PO DAILY Qty: 30 0RF
ondansetron HCl 4 mg Tablet
4 mg PO Q8HPRN PRN (Reason: nausea/vomiting)
sodium chloride 1,000 mg Tablet,Soluble
1,000 mg PO BID
Magnesium Biglycinate 100 mg tablet
400 mg PO DAILY
Referrals:
Shellie Snell, [Family Provider, General]
Interventions
Interventions:
*Risk Screen - Suicide Last Done: 03/18/25 09:04
*General Assessment Last Done: 03/18/25 09:04
*Neglect/Abuse Screening Last Done: 03/18/25 09:04
*ED- Fall Risk Assessment Last Done: 03/18/25 10:18
*ED COVID-19 Vaccine History Last Done: 03/18/25 10:13
*ED Influenza Vaccine History Last Done: 03/18/25 10:13
ED- Cardiac Assessment Last Done: 03/18/25 10:13
ED- Neurological Assessment Last Done: 03/18/25 10:13
ED- Pulmonary Assessment Last Done: 03/18/25 10:13
Discharge Date and Time
Print Language: TELUGU
[2025-03-18 09:23] LABS: Glucose - Point of Care 103 mg/dl (70-99)
[2025-03-18 09:41] LABS: Hematocrit 29.2 % (37.0-47.0); Hemoglobin 9.7 g/dL (12.0-16.0); Mean Corp Hgb Conc. 33.2 g/dL (33.0-37.0); Mean Corpuscular Volume 86.6 fL (81.0-99.0); Nucleated Red Blood Cells % 0 %; Platelet Count 256 10^3/uL (130-400); Red Cell Dist. Width 13.6 % (11.5-14.5)
[2025-03-18 10:02] LABS: ALT (SGPT) < 10 U/L (0-35); AST (SGOT) 17 U/L (14-36); Albumin 3.6 g/dl (3.5-5.0); Alkaline Phosphatase 103 U/L (38-126); Blood Urea Nitrogen 10 mg/dl (7-17); Calcium 9.2 mg/dl (8.4-10.2); Carbon Dioxide 25 mmol/L (22-30); Chloride 102 mmol/L (98-107); Glucose 103 mg/dl (70-99); Potassium 4.3 mmol/L (3.5-5.1); Sodium 131 mmol/L (135-145); Total Protein 6.9 g/dl (6.3-8.2); eGFR > 60.00
[2025-03-18 10:18] LABS: Urine Character Slightly Cloudy (Clear)
[2025-03-18 10:27] LABS: Urine Squamous Cell 0-2 /LPF (Few)
[2025-03-18 10:28] LABS: Urine Red Blood Cell 0-2 /HPF (0-2)
[2025-03-18] MEDS: NSS 500 IV (12:26)
[2025-03-18] MEDS: ROCEPHIN 1000 MG IV (12:27)
[2025-03-18] MEDS: KEPPRA 1000 MG IV (13:12)
--- NOTE | 2025-03-18 13:23 | HPS.HSE ---
Addendum entered and electronically signed by Raine Yates MD 03/18/25 14:22:
This is an addendum to H&P written by Tierney Escalante on 03/18/2025. �Patient seen and examined independently with HEALTH AND SAFETY TECHNICIAN.
84-year-old female with past medical history of primary biliary cirrhosis, persistent atrial fibrillation on Pradaxa, sick sinus syndrome status post pacemaker, CAD status post stents, PAD, hypertension, carotid artery stenosis status post bilateral
endarterectomy, Parkinson's disease, hypothyroidism, breast cancer status post left mastectomy, CVA, hyperlipidemia, spinal stenosis, right eye retinal hemorrhage, recurrent hyponatremia, presenting for possible seizure. �She is currently at [facility] for rehab. �Nurse noted that she had seizure 20 to 25 seconds with periods of apnea. �She did bite her tongue.
She was recently admitted from 03/09 to 03/11 for altered mental status secondary to UTI. �Urine culture from 03/09 showed E. coli resistant to cefazolin. �She was treated with ceftriaxone transition to ciprofloxacin
Vital signs show blood pressure 160s to 170s.
Labs show stable anemia of 9.7.
Labs show sodium of 131 relatively stable. �Urinalysis shows 11-15 WBC, slightly cloudy urine, improved from 26-[address] head shows no acute intracranial abnormality.
Patient with concern for acute seizure. �Keppra loaded, continue Keppra 500 twice daily.� Check MRI brain. Neurology consulted.
Patient was treated with adequate antibiotics for recent UTI was sensitive to ceftriaxone and ciprofloxacin. �No current confusion to suggest UTI. Stop further Antibiotics.�
Original Note:
Family Physician
-
Family Physician: Shellie Snell DO
Chief Complaint
-
Reported seizure patient reports feeling dizzy
History of Present Illness
84-year-old female from [facility] rehab with nurse reporting seizure lasting 20 to 25 seconds with periods of apnea. The patient remembers this morning waking up feeling very dizzy she think she was trying to get out of bed but was too weak. She
does not recall the nurse coming in. She did bite her tongue and has bruising to the right side of the tongue no open lacerations. She still feels lightheaded. She denies any dysuria or frequency. She is aware that she just had recent admission
for UTI and is at [facility] for rehab. She states she is only standing up to transfer to wheelchair at current time. She denies headache, sore throat, fever, chills, chest pain, palpitations, cough, shortness of breath, abdominal pain, nausea,
vomiting, diarrhea, urinary symptoms. She was given levothyroxine at 630 this morning and carbidopa-levodopa at 00:30. She did not take any of her morning medications. She is currently paced on the monitor with blood pressure 174/58
The patient had a recent Admission 03/09 - 03/11/2025 due to altered mental status TME secondary to UTI with hallucinations on admission. Patient was treated with ceftriaxone transition to 5 days as Cipro according to sensitivities
Patient had urine culture 03/09/2025 grow E. coli resistant to cefazolin, Unasyn, Bactrim. She was due to finish Cipro yesterday 03/17/2025
She has past medical history paroxysmal A-fib status post cardioversion x 4, HTN, HLD, CAD status post PCI with drug-eluting stents to RCA times
09/15/2013, CAD status post left CEA 2016 right CEA 2016, PVD, pacemaker insertion 2014 replacement 02/16/2024 bradycardia Medtronic MRI conditional mild aortic stenosis, mild TR, COPD per records, bilateral pleural effusions May 2022 status post
thoracentesis, renal artery stenosis status post multiple bilateral renal stents, GERD, small hiatal hernia, colonic polyps, primary biliary cirrhosis with mildly elevated AST, CVA May 2022, July 2022 with residual left hand dysfunction, right
retinal artery occlusion September 2018 with residual right eye visual loss, restless leg syndrome, mild scoliosis, cervical DDD with radiculopathy, hypothyroidism, left-sided breast cancer status post left mastectomy with sentinel node biopsy 01/15/2013,
squamous cell CA status post multiple excisions, anemia of chronic disease, osteopenia, remote history of tobacco abuse, COVID-19 pneumonia 04/17/2022 requiring supplemental oxygen
Medical History
Past Medical History
Past Medical History: Reports Other
Additional Past Medical History:
1. Paroxysmal atrial fibrillation, status post cardioversion x4; pharmacological therapy with Metoprolol Succinate and Propranolol, oral anticoagulation with Pradaxa.
2. Hypertension.
3. Hyperlipidemia.
4. Coronary artery disease, status post PCI with drug eluting stents to RCA x4 2013.
5. Carotid artery stenosis, status post left carotid endarterectomy, 2015, and right carotid endarterectomy 2016.
6. Peripheral vascular disease.
7. Status post pacemaker insertion 2013.
8. Mild aortic stenosis.
9. Mild tricuspid regurgitation.
10. COPD per records.
11. Bilateral pleural effusion, 05/2022, status post thoracentesis.
12. Renal artery stenosis, status post multiple bilateral renal stents.
13. GERD.
14. Small hiatal hernia.
15. Colon polyps.
16. Primary biliary cirrhosis with mildly elevated AST.
17. 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
18. Right retinal artery occlusion, 09/2018, with residual right eye visual loss.
19. Restless leg syndrome.
20. Mild scoliosis.
21. Cervical degenerative disc disease with radiculopathy.
22. Hypothyroidism.
23. Left sided breast cancer, status post left mastectomy with sentinel node biopsy 12/2012.
24. Squamous cell carcinoma, status post multiple excisions.
25. Anemia of chronic disease.
26. Osteopenia.
27. COVID 19 pneumonia, 03/2022, requiring previous supplemental oxygen.
28. Remote history of tobacco abuse.
29. 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
30 E. coli UTI with hallucinations 03/09/2024
Past Surgical History: Reports Other
Additional Past Surgical History:
1. Cardioversion x4.
2. PCI with drug eluting stents to RCA x4.
3. Cardiac catheterization.
4. Pacemaker insertion. replacement 02/16/2024 bradycardia Medtronic MRI conditional
5. Thoracentesis.
6. Left carotid endarterectomy.
7. Right carotid endarterectomy.
8. Left mastectomy with sentinel node biopsy.
9. Temporal artery biospy.
10. Appendectomy.
11. Bilateral tubal ligation.
12. Multiple bilateral renal stents.
13. Multiple squamous cell carcinoma excisions.
14. Bilateral cataract extraction.
15. Colonoscopy x3.
16. Endoscopy.
Social History
Tobacco: Former Smoker (She is a former up to 1 and 1/2 pack per day cigarette smoker who quit tobacco at 30 years old. )
Alcohol: Other (She drinks 1-2 glasses of wine most evenings with dinner. )
Personal: Single
Living: Alone (She lives in a 2 story home with a first floor main setup. )
Employment: Retired
Family History
Family History: Not pertinent
Allergies / Home Medications
Allergies reflects when Allergies were last updated in [facility].
Home Medications with original date entered in [facility]
Allergy/Medication List:
Allergies
Allergy/AdvReac Type Severity Reaction Status Date / Time
adhesive Allergy Redness, Verified 03/18/25 09:03
rash
amiodarone Allergy tremors Verified 03/18/25 09:03
diltiazem Allergy Rash Verified 03/18/25 09:03
furosemide (From Lasix) Allergy Unknown Verified 03/18/25 09:03
hydralazine (Hydralazine) Allergy RAMSEY, Verified 03/18/25 09:03
Fatigue,
Dizziness
Iodinated Contrast Media Allergy Rash and Verified 03/18/25 09:03
(Iodinated Contrast Media - Warmth
IV Dye)
iodine (Iodine) Allergy rash with Verified 03/18/25 09:03
ivp dye
omeprazole Allergy Nausea Verified 03/18/25 09:03
spironolactone Allergy kidney Verified 03/18/25 09:03
failure-
Hypercalcemia
Home Medications
ursodiol 300 mg capsule 600 mg PO HS Gastrointestinal Issue 01/23/17
isosorbide mononitrate 60 mg tablet,extended release 24 hr 60 mg PO DAILY Heart Disease/Condition 05/18/22
cholecalciferol (vitamin D3) 50 mcg (2,000 unit) capsule (Vitamin D3) 50 mcg PO DAILY Supplement 06/21/23
calcium carbonate 500 mg PO DAILY Supplement 12/07/23
pantoprazole 20 mg tablet,delayed release (Protonix) 20 mg PO BID Gastrointestinal Issue 02/09/24
dofetilide 250 mcg capsule 250 mcg PO BID Arrhythmia 02/16/24
valsartan 80 mg tablet 80 mg PO DAILY Blood Pressure 06/29/24
carbidopa 25 mg-levodopa 100 mg tablet (Sinemet) 1 tab PO QID parkinson's disease 11/08/24
acetaminophen 325 mg tablet 650 mg PO Q4HPRN PRN mild pain/MCGHEE/temp> 100F 11/18/24
nifedipine 30 mg tablet,extended release 24 hr 30 mg PO QPM Blood Pressure 11/18/24
carbidopa ER 50 mg-levodopa 200 mg tablet,extended release 1 tab PO DAILY@0000 parkinson's disease 02/13/25
clonidine HCl 0.1 mg tablet 0.05 mg PO Q6HPRN PRN SBP>160 02/13/25
cyanocobalamin (vitamin B-12) 1,000 mcg tablet (Vitamin B-12) 1,000 mcg PO DAILY Supplement 02/13/25
ursodiol 300 mg capsule 300 mg PO DAILY Gastrointestinal Issue 02/13/25
atorvastatin 80 mg tablet 80 mg PO HS cholesterol 03/09/25
bisacodyl 10 mg rectal suppository (Dulcolax (bisacodyl)) 10 mg NE DAILYPRN PRN if no bm aftr mom give on day 5 03/09/25
calcium carbonate (Tums) 200 mg PO Q8HPRN PRN gerd 03/09/25
cyclobenzaprine 5 mg tablet 7.5 mg PO HS spasms 03/09/25
cyclobenzaprine 5 mg tablet 7.5 mg PO TIDPRN PRN spasms 03/09/25
dabigatran etexilate 150 mg capsule (Pradaxa) 150 mg PO BID a-fib 03/09/25
levothyroxine 100 mcg tablet 100 mcg PO DAILY hypothyroidism 03/09/25
magnesium hydroxide 400 mg/5 mL oral suspension (Milk of Magnesia) 2,400 mg PO DAILYPRN PRN if no bm by 3rd day give on day 4 03/09/25
sennosides 8.6 mg-docusate sodium 50 mg tablet (Senna Plus) 1 tab PO BID Constipation 03/09/25
sodium phosphates 19 gram-7 gram/118 mL enema (Fleet Enema) 118 ml NE DAILYPRN PRN if no bm aftr dulcolax give on day 6 03/09/25
metoprolol succinate 100 mg tablet,extended release 24 hr 100 mg PO DAILY #30 tabs 03/11/25
metoprolol succinate 50 mg tablet,extended release 24 hr 50 mg PO HS #30 tabs 03/11/25
Magnesium Biglycinate 400 mg PO DAILY 03/18/25
ondansetron HCl 4 mg tablet 4 mg PO Q8HPRN PRN nausea/vomiting 03/18/25
sodium chloride 1,000 mg soluble tablet 1,000 mg PO BID 03/18/25
Review of Systems
-
History Source: Patient
A 12 point ROS was completed and negative except as noted: Yes
Constitutional: Denies Fever or Fatigue
EENT: Reports Other (Bruising to right side of tongue likely from seizure); Denies Tearing or Sore Throat
Respiratory: Denies Cough
Cardiac: Denies Chest Pain, Diaphoresis, Palpitations or Syncope
Abdomen/GI: Denies Abdominal Pain, Nausea, Vomiting, Diarrhea, Constipated, Bloody Stools or Black Stools
: Denies Dysuria, Frequency, Flank Pain, Incontinence, Difficulty Voiding or Urgency
Musculoskeletal: Denies Joint Pain or Muscle Pain
Skin: Denies Itching or Rash
Neurological: Reports Dizzy; Denies Headache or Weakness
Endocrine: Reports No Symptoms
Hematologic/Lymphatic: Reports No Symptoms
Psych: Reports Calm
Physical Exam
Vital Signs
Vital Signs
Temp Pulse Resp BP Pulse Ox
97.7 F 70 13 174/58 97
03/18/25 09:04 03/18/25 13:18 03/18/25 13:15 03/18/25 13:18 03/18/25 13:15
Physical Exam
General: Comfortable and Conversant; No Pain, Fever or Chills
HEENT: NormoCephalic, Anicteric, Moist mucous membranes, Atraumatic, PERRLA, Daykin Conjunctivae, No Ptosis, Neck Nontender and Other (Bruising to right side of tongue)
Respiratory: Clear; No Wheezes, Rales or Rhonchi
Cardiac: S1/S2 and Other (Paced on monitor, pacemaker present right upper chest wall); No Murmur, Rub, Gallop or Peripheral Edema
Breast: Deferred by me
GI: Soft, Non Tender, Non Distended and Normal Bowel Sounds
Rectal: Deferred by Provider
Genito-urinary: Deferred by me
Musculoskeletal: No Clubbing, No Cyanosis and No Edema
Skin: Warm and Dry; No Rash
Neuro: AO x 3 (But does not recall seizure this morning remembers waking up feeling lightheaded and dizzy), No Motor Deficits, Cranial Nerves Intact and No Sensory Deficits; No Slurred Speech, Facial Droop, Tremors or Sedated
Psych: Calm
Laboratory Results
-
03/18/25 09:35
03/18/25 09:35
Laboratory Results
Total Bilirubin 0.8 mg/dl (0.2-1.3) 03/18/25 09:35
AST 17 U/L (14-36) 10/21/25 09:35
ALT < 10 U/L (0-35) 03/18/25 09:35
Alkaline Phosphatase 103 U/L (38-126) 03/18/25 09:35
Impression/Plan
-
Impression/plan:
Observation telemetry
#Acute New onset seizure
#Bruising right side tongue secondary to bit tongue: seizure lasted 20-25 seconds per nurse at [facility]
-Keppra 1000 mg loading given in ER
Start Keppra 500 twice daily
- Consult Neuro- Dr barron Aware
-history of pacemaker 02/16/2024 dual-chamber�Medtronic; Model# [id number]; Serial# [id number].MRI CONDITIONAL
CT head:
Moderate age-related parenchymal atrophy. Stable chronic transcortical infarct of the left frontal lobe. Other small chronic infarcts
suggested in the right frontal and parietal lobes. No intra- or extra-axial mass, hemorrhage, or fluid collection.
Severe subcortical, deep, and periventricular white matter low-attenuation,
compatible with changes of chronic small vessel ischemic disease.
The imaged paranasal sinuses and mastoid air cells are clear. Bilateral ocular lens implants.
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
#Recent UTI�E. coli 03/09-03/11/2025
Treated with Rocephin transition to oral ciprofloxacin finished yesterday 03/17/2025
Repeat UA-WBC 1115, few bacteria
- Patient denies urinary symptoms
#Chronic hyponatremia
NA 131
Continue sodium chloride 1000 mg twice daily
-Follow BMP
#Hx right MCA ischemic stroke
#Hx 3 cm left frontal lobe infarct stable, 2 cm right frontal infarct stable, 1.5 cm lacunar infarct involving left caudate left internal capsule stable from prior study 10/18/2023
#Parkinson's
-Continue carbidopa levodopa
#HTN- benign/history orthostatic hypotension
BP 180/59
Will give dose now of metoprolol 100 mg and Tikosyn 250 mcg as patient did not take a.m. meds
-Continue metoprolol 100 mg in a.m. continue Lopressor 50 mg at bedtime with hold parameters
#Renal artery stenosis status post bilateral renal stents
#HLd
check lipid profile
-cont lipitor 40 mg
#A-fib paroxysmal
-Continue Pradaxa,
-continue tikosyn with hold parameters
-- cont metoprolol, nifedipine, with hold parameters
-Takes propanolol 20 mg every 4 as needed when she feels heart rate skipping
- Follows with [facility] cardiology
#Hypothyroidism
- cont levothyroxine patient took this a.m. 630
#Cad
#Cardiac stent x 4 RCA drug-eluting to 2013
-Continue imdur with hold parameters
-Continue Imdur, statin, Pradaxa, beta-andrez
#Carotid stenosis status post bilateral CEA 2015, 2016
#Chronic cardiac murmur
#Pacemaker
#Anemia of chronic disease
Hgb 9.7 baseline appears around 10
#Aortic stenosis�mild
Mild TR
#Primary biliary cirrhosis
#GERD
#Small hiatal hernia
-Continue Pepcid 40 mg twice daily
#Squamous cell carcinoma
#Breast cancer Left mastectomy 2012
# Former smoker
#Overactive bladder
-Continue ursodiol
Other PMH:
#Right leg sciatica
DVT prophylaxis
Continue Pradaxa
Full code
[2025-03-18] MEDS: LOPRESSOR 100 MG PO (14:11)
--- NOTE | 2025-03-18 14:19 | CON.NEURO4 ---
Addendum entered and electronically signed by Ivan Tang MD 03/18/25 17:39:
Studies reviewed.
I have personally examined the patient. I reviewed and agree with the PRODUCT MANAGEMENT MANAGER's Note.
My addenda:
Awake, interactive. Closes eyes when not interacting. No acute distress.
Speech intact.
Follows 2-step requests w/ significant difficulty. No tremor.
Extra-ocular movements grossly intact.
Facial movements full and symmetric. Hearing intact to normal conversational volume.
Normal UE movements bilaterally.
Neck: full ROM.
Chest: no dyspnea
Heart: no JVD
Ext: (-) Clubbing, (-) Cyanosis, (-) Edema
IMPRESSIONS/RECOMMENDATIONS:
Abrupt onset of generalized tonic-clonic movements, by report. Patient unable to provide her own medical history.
It is possible the patient is experiencing seizures based on patient's prior stroke
Provide levetiracetam 1000 mg twice a day
Eventual outpatient EEG
Eventual outpatient MRI of the brain
Consider lumbar puncture based on the patient's cognitive issues currently which are different than when last evaluated
D/W patient
Will continue to follow patient.
Original Note:
Consultation - Neurology 4
-
CONSULTING PHYSICIAN: Ivan Tang MD
REFERRING PHYSICIAN: Hospitalists/JANET García
DICTATED BY: JANET Wilkins
DATE/TIME OF REQUEST: 03/18/25
DATE/TIME OF CONSULTATION: 03/18/25
Reason for Consultation: Seizure
History of Present Illness:
This is an 84-year-old left-handed female who has presented to the hospital with report of seizure. Patient is followed by Neurology Dr. Cervantes as an outpatient but has been evaluated by our Neurology service several times in the past for a R MCA
ischemic stroke in 2021 and May 2024, and expressive aphasia in October 2024 with negative MRI brain imaging.
From most recent Neurology evaluation by JANET Overton on 11/19/24:
'Left-handed 84-year-old female with past medical history significant for CVA (2021, recurrent May 2024), permanent atrial fibrillation status post pacemaker on Pradaxa, Parkinson's disease, history of carotid stenosis status post
endarterectomy, hypertension, hypothyroid, depression presented to the [facility] on 11/18/2024 with acute expressive aphasia that started around 5:30 PM found to have a left frontal lobe CVA on CT scan.
Head CT: Nonhemorrhagic left frontal lobe region infarct, possibly acute/subacute.
Head and neck CTA: Redemonstration of complete occlusion of the majority of the right internal carotid artery. No new or worsening vascular occlusion. No aneurysm or dissection.
TTE:
Left ventricular ejection fraction is >75%. Normal regional wall motion.
Normal right ventricular size and function. Pacer wire seen in right ventricle.
Moderately to severely dilated left atrium. Moderately dilated right atrium.
Mild to moderate aortic stenosis; peak/mean gradients 15/9 mmHg, calculated LINDY
is 1.2 cm2.
Brain MRI pending
Labs: ESR 45, Cholesterol 146, LDL 82
Brain MRI without shun (06/27/2024)�punctuate right frontal/frontoparietal lobes subacute infarcts, severe bihemispheric leukoaraiosis
CTA head/neck(11/06/2023)-Right proximal internal carotid artery occlusion near its origin to the level of the right MCA/no dissection.
Brain MRI (08/03/2021):
1. Multiple small acute to subacute nonhemorrhagic infarcts at the right frontoparietal junction.
2. A few scattered chronic-appearing punctate foci of microhemorrhage in the bilateral cerebral hemispheres raise suspicion for cerebral amyloid angiopathy, or less likely hypertensive angiopathy.
3. Moderate age-related parenchymal atrophy.
4. Moderate to severe chronic microangiopathic ischemia.
Plan
Impressions:
I. Left frontal lobe region infarct, possibly acute/subacute.
II. Chronic right ICA occlusion
III. Paroxysmal A-Fib on Pradaxa. History of R MCA territory ischemic stroke while on Eliquis
III. Parkinson's disease with possible orthostatic hypotension
-MRI pending
-give clopidogrel 75 mg now, resume pradaxa tomorrow
-current LDL 82 with goal LDL<70, would advance atorvastatin from 40 mg to 80 mg although no clear scientific evidence that this will be of assistance in a person of this advanced age
-PT/OT/ST evaluations
-neurochecks and NIHSS per unit guidelines
-normoglycemia with hgb A1C <7
-check orthostatic vital signs BID. Adjustment of BP meds per primary team. Slow position changes, YUVAL stockings during the day.
-DVT prophylaxis
-continue Carbidopa-Levodopa for Parkinson's disease
-follow up with outpatient Neurologist Dr. Cervantes
-stroke education materials to be provided '
MRI brain 11/18/24 ended up being negative for any acute abnormalities. Orthostatic vital signs were positive. Patient was recently admitted at [facility] for UTI with hallucinations from 03/09/25-03/11/25 and was discharged to [facility] for rehab. This
morning (03/18/25), she was noted by nursing staff to have a 20-25 second episode of whole body shaking associated with apnea and tongue biting that resolved spontaneously. CT head was obtained in the ER and is negative for any acute abnormalities.
She was given levetiracetam 1000mg in the ER. Patient reports that she remembers feeling like she couldn't think clearly or speak prior to losing consciousness. She also notes having a similar sensation a day or so ago. Currently, she doesn't feel
quite back to her baseline. She denies any current headache, dizziness, vision changes, speech/swallowing difficultly, numbness, and new weakness. She denies any history of seizure.
Past Medical History: Paroxysmal A-Fib (dabigatran), BL ICA occlusion, R MCA stroke(07/2021 and 05/2024), h/o left breast cancer, Primary biliary cirrhosis, PAD, CAD, SSS, DLP, CKD, hypothyroidism, GERD, ambulatory dysfunction, R eye retinal
hemorrhage
Surgical History: BL CEA, Left mastectomy, bilateral cataract surgery, PPM, renal artery/coronary PTCI
Family History: Reviewed and noncontributory.
Social History: Former smoker. Occasional alcohol. Denies illicit drug use.
Allergies: See below.
Home Medications: See below.
Review of Symptoms:
Patient denies any fever, headache, chest pain, shortness of breath, GI or symptoms.
�Per the HPI.�All systems are reviewed negative except above.
Physical Exam:
The patient is afebrile, abdomen is nondistended, breathing is unlabored, skin is warm and dry, no edema.
Neurologic Examination:
The patient is awake, alert and oriented x 3. Next holiday- . Most recent- . She is able to follow commands and answer questions appropriately. There is no aphasia or dysarthria. On cranial nerve assessment, pupils are 3 mm
bilateral, round and reactive to light and accommodation. Visual ayala are challenging to assess but appear full. Extraocular movements are intact. Facial sensations are intact and bilaterally symmetrical, there is no facial asymmetry. Hearing is
intact bilaterally to normal conversation volume. Tongue palate and uvula are midline. Sternocleidomastoid strengths are full bilaterally. Motor strengths are 5/5 right upper and lower extremities, 5-/5 LUE and LLE on medical research [place] scale.
There is slight drift in the LUE. No involuntary movement noted. Deep tendon reflexes are 2+ bilateral upper and lower extremities and Babinski is absent bilaterally. BRYSON double simultaneous due to confusion. Coordination is intact by finger to nose
bilaterally.
Lab Results: See below.
Neuro Imaging:
1. CT head 03/18/25: No acute intracranial abnormality. Chronic findings, as detailed above.
Differentials for the patient's presentation include:
1. New onset seizure; history or stroke and recent UTI are likely contributing factors.
Patient has the following risk factors for their symptoms: hx stroke, recent UTI
Recommendations:
-Continue home dabigatran.
-Continue levetiracetam 500mg twice a day.
-Continue home Parkinson's medications.
-Neurological checks per unit guidelines.
-Seizure precautions.
Discussed patient care with: Dr. Tang, the patient
Vital Signs and Labs
-
Vital Signs and Labs:
Vital Signs
Temp Pulse Resp BP Pulse Ox
97.7 F 70 18 175/45 96
03/18/25 09:04 03/18/25 15:00 03/18/25 15:00 03/18/25 15:00 03/18/25 15:00
Lab Results
03/18/25 09:35
03/18/25 09:35
Sodium 131 mmol/L (135-145) L 03/18/25 09:35
Potassium 4.3 mmol/L (3.5-5.1) 03/18/25 09:35
BUN 10 mg/dl (7-17) 03/18/25 09:35
Glucose 103 mg/dl (70-99) H 03/18/25 09:35
Calcium 9.2 mg/dl (8.4-10.2) 03/18/25 09:35
Medications
-
Active Medications
Generic Name Dose Route Start Last Admin
Trade Name Freq PRN Reason Stop Dose Admin
Acetaminophen 650 mg 03/18/25 15:43
Acetaminophen 325 Mg Tablet PO 04/15/25 15:42
Q4HPRN PRN
mild pain/MCGHEE/temp> 100F
Calcium Carbonate 200 mg 03/18/25 15:43
Calcium Antacid 200 Mg (Calcium Carbonate 500 Mg) Chew Tablet PO 04/15/25 15:42
Q8HPRN PRN
gerd
Calcium Carbonate 500 mg 03/19/25 08:00
Calcium Carbonate 500 Mg Tablet PO 04/16/25 07:59
DAILY SOFIA
Carbidopa/Levodopa 1 tablet 03/18/25 18:00
Carbidopa (25 Mg)/Levodopa (100 Mg) Regular Release Tablet PO 04/15/25 17:59
QID SOFIA
Carbidopa/Levodopa 1 tablet 03/19/25 00:00
Carbidopa (50 Mg)/Levodopa (200 Mg) Extended Release Tablet PO 04/16/25 00:00
DAILY@0000 SOFIA
Cholecalciferol 50 mcg 03/19/25 08:00
Cholecalciferol (Vitamin D3) 50 Mcg Tablet (2,000 Units) PO 04/16/25 07:59
DAILY SOFIA
Cyanocobalamin 1,000 mcg 03/19/25 08:00
Cyanocobalamin (Vitamin B-12) 500 Mcg Tablet PO 04/16/25 07:59
DAILY SOFIA
Dabigatran 150 mg 03/18/25 20:00
Dabigatran Etexilate (Pradaxa) 150 Mg Capsule PO 04/15/25 19:59
BID SOFIA
Dofetilide 250 mcg 03/18/25 22:00
Dofetilide 250 Mcg Capsule PO 04/15/25 21:59
BID SOFIA
Isosorbide Mononitrate 60 mg 03/19/25 08:00
Isosorbide Mononitrate 60 Mg Extended Release Tablet PO 04/16/25 07:59
DAILY SOFIA
Levetiracetam 500 mg 03/18/25 20:00
Levetiracetam 500 Mg Regular Release Tablet PO 04/15/25 19:59
BID SOFIA
Levothyroxine Sodium 100 mcg 03/19/25 06:00
Levothyroxine 100 Mcg Tablet PO 04/16/25 05:59
DAILY @ 0600 SOFIA
Metoprolol Succinate 50 mg 03/18/25 22:00
Metoprolol 50 Mg Extended Release Tablet PO 04/15/25 21:59
HS SOFIA
Metoprolol Succinate 100 mg 03/19/25 08:00
Metoprolol 100 Mg Extended Release Tablet PO 04/16/25 07:59
DAILY SOFIA
Nifedipine 30 mg 03/18/25 18:00
Nifedipine 30 Mg Extended Release Tablet PO 04/15/25 17:59
QPM SOFIA
Non-Formulary Medication 7.5 mg 03/18/25 22:00
Cyclobenzaprine PO 04/15/25 21:59
HS SOFIA
Non-Formulary Medication 7.5 mg 03/18/25 15:43
Cyclobenzaprine PO
TIDPRN PRN
spasms
Non-Formulary Medication 400 mg 03/19/25 08:00
Magnesium Biglycinate PO 04/16/25 07:59
DAILY SOFIA
Ondansetron HCl 4 mg 03/18/25 15:43
Ondansetron 4 Mg Tablet PO 04/15/25 15:42
Q8HPRN PRN
nausea/vomiting
Pantoprazole Sodium 20 mg 03/18/25 20:00
Pantoprazole 20 Mg Delayed Release Tablet PO 04/15/25 19:59
BID SOFIA
Senna/Docusate Sodium 1 tablet 03/18/25 20:00
Docusate W/Senna (Lyly-Colace) Tablet PO 04/15/25 19:59
BID SOFIA
Sodium Chloride 1 gram 03/18/25 20:00
Sodium Chloride 1 Gram Tablet PO 04/15/25 19:59
BID SOFIA
Ursodiol 300 mg 03/19/25 08:00
Ursodiol 300 Mg Capsule PO 04/16/25 07:59
DAILY SOFIA
Ursodiol 600 mg 03/18/25 22:00
Ursodiol 300 Mg Capsule PO 04/15/25 21:59
HS SOFIA
Valsartan 80 mg 03/19/25 08:00
Valsartan 80 Mg Tablet PO 04/16/25 07:59
DAILY SOFIA
Home Medications
�Medication �Instructions �Recorded
ursodiol 300 mg capsule 600 mg PO HS Gastrointestinal Issue 01/23/17
isosorbide mononitrate 60 mg 60 mg PO DAILY Heart 05/18/22
tablet,extended release 24 hr Disease/Condition
cholecalciferol (vitamin D3) 50 50 mcg PO DAILY Supplement 06/21/23
mcg (2,000 unit) capsule (Vitamin
D3)
calcium carbonate 500 mg PO DAILY Supplement 12/07/23
pantoprazole 20 mg tablet,delayed 20 mg PO BID Gastrointestinal Issue 02/09/24
release (Protonix)
dofetilide 250 mcg capsule 250 mcg PO BID Arrhythmia 02/16/24
valsartan 80 mg tablet 80 mg PO DAILY Blood Pressure 06/29/24
carbidopa 25 mg-levodopa 100 mg 1 tab PO QID parkinson's disease 11/08/24
tablet (Sinemet)
acetaminophen 325 mg tablet 650 mg PO Q4HPRN PRN mild 11/18/24
pain/MCGHEE/temp> 100F
nifedipine 30 mg tablet,extended 30 mg PO QPM Blood Pressure 11/18/24
release 24 hr
carbidopa ER 50 mg-levodopa 200 mg 1 tab PO DAILY@0000 parkinson's 02/13/25
tablet,extended release disease
clonidine HCl 0.1 mg tablet 0.05 mg PO Q6HPRN PRN SBP>160 02/13/25
cyanocobalamin (vitamin B-12) 1,000 mcg PO DAILY Supplement 02/13/25
1,000 mcg tablet (Vitamin B-12)
ursodiol 300 mg capsule 300 mg PO DAILY Gastrointestinal 02/13/25
Issue
atorvastatin 80 mg tablet 80 mg PO HS cholesterol 03/09/25
bisacodyl 10 mg rectal suppository [address] DAILYPRN PRN if no bm 03/09/25
(Dulcolax (bisacodyl)) aftr mom give on day 5
calcium carbonate (Tums) 200 mg PO Q8HPRN PRN gerd 03/09/25
cyclobenzaprine 5 mg tablet 7.5 mg PO HS spasms 03/09/25
cyclobenzaprine 5 mg tablet 7.5 mg PO TIDPRN PRN spasms 03/09/25
dabigatran etexilate 150 mg 150 mg PO BID a-fib 03/09/25
capsule (Pradaxa)
levothyroxine 100 mcg tablet 100 mcg PO DAILY hypothyroidism 03/09/25
magnesium hydroxide 400 mg/5 mL 2,400 mg PO DAILYPRN PRN if no bm 03/09/25
oral suspension (Milk of Magnesia) by 3rd day give on day 4
sennosides 8.6 mg-docusate sodium 1 tab PO BID Constipation 03/09/25
50 mg tablet (Senna Plus)
sodium phosphates 19 gram-[address] DAILYPRN PRN if no bm 03/09/25
gram/118 mL enema (Fleet Enema) aftr dulcolax give on day 6
metoprolol succinate 100 mg 100 mg PO DAILY #30 tabs 03/11/25
tablet,extended release 24 hr
metoprolol succinate 50 mg 50 mg PO HS #30 tabs 03/11/25
tablet,extended release 24 hr
Magnesium Biglycinate 400 mg PO DAILY 03/18/25
ondansetron HCl 4 mg tablet 4 mg PO Q8HPRN PRN nausea/vomiting 03/18/25
sodium chloride 1,000 mg soluble 1,000 mg PO BID 03/18/25
tablet
Allergies
-
Allergies
Allergy/AdvReac Type Severity Reaction Status Date / Time
adhesive Allergy Redness, Verified 03/18/25 09:03
rash
amiodarone Allergy tremors Verified 03/18/25 09:03
diltiazem Allergy Rash Verified 03/18/25 09:03
furosemide (From Lasix) Allergy Unknown Verified 03/18/25 09:03
hydralazine (Hydralazine) Allergy RAMSEY, Verified 03/18/25 09:03
Fatigue,
Dizziness
Iodinated Contrast Media Allergy Rash and Verified 03/18/25 09:03
(Iodinated Contrast Media - Warmth
IV Dye)
iodine (Iodine) Allergy rash with Verified 03/18/25 09:03
ivp dye
omeprazole Allergy Nausea Verified 03/18/25 09:03
spironolactone Allergy kidney Verified 03/18/25 09:03
failure-
Hypercalcemia
--- NOTE | 2025-03-18 14:38 | EDCM ---
CM reviewed chart and met with pt bedside in ED. Pt has been at [facility] for STR since last admission at , 03/11/25. Had also been there after admission in January. Prior to that she lived alone. Daughters live locally and provide support.
Needs assistance with ADLs and personal care. Ambulates with RW.
Confirms prescription coverage.
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
PCP: Shellie Snlel at [facility]
Home Pharmacy: [facility] currently providing meds.
Anticipate return to [facility] for STR at discharge, CM will continue to follow.
[2025-03-18] MEDS: TIKOSYN 250 MCG PO ×2 (14:40→21:09)
[2025-03-18 14:44] LABS: Magnesium 2.0 mg/dl (1.6-2.3)
[2025-03-18] MEDS: SINEMET 25-100 1 TABLET PO ×2 (17:15→21:10)
[2025-03-18] MEDS: PROCARDIA XL (EXTENDED RELEASE) 30 MG PO (17:15)
[2025-03-18] MEDS: KEPPRA 500 MG PO (20:58)
[2025-03-18] MEDS: SODIUM CHLORIDE 1 GRAM PO (20:58)
[2025-03-18] MEDS: PRADAXA 150 MG PO (20:58)
[2025-03-18] MEDS: PROTONIX 20 MG PO (20:58)
[2025-03-18] MEDS: SENOKOT-S 1 TABLET PO (20:58)
[2025-03-18] MEDS: TOPROL XL 50 MG PO (21:08)
[2025-03-18] MEDS: FLEXERIL 7.5 MG PO (21:10)
[2025-03-18] MEDS: ACTIGALL 600 MG PO (21:10)
[2025-03-18] MEDS: SINEMET CR 50/200 (EXTENDED RELEASE) 1 TABLET PO (23:23)
[2025-03-19] VITALS (8 sets, daily range): BP systolic 108–158; BP diastolic 45–85; PULSE 69–70; O2SAT 96; BMI 22.2
--- NOTE | 2025-03-19 02:24 | DOWNTIME ---
There was a [employer] Client [employer] Downtime on 03/19/2025 from 0100 to 03/19/2025 at 0215. Downtime documentation of patient's care, including medication administrations, has been reconciled in the electronic record per guidelines. Refer to the
patient's paper chart under the miscellaneous tab to see printed paper medication records and downtime forms.
[2025-03-19 05:34] LABS: Hematocrit 27.1 % (37.0-47.0); Hemoglobin 8.9 g/dL (12.0-16.0); Mean Corp Hgb Conc. 32.8 g/dL (33.0-37.0); Mean Corpuscular Volume 90.6 fL (81.0-99.0); Nucleated Red Blood Cells % 0 %; Platelet Count 258 10^3/uL (130-400); Red Cell Dist. Width 13.9 % (11.5-14.5)
[2025-03-19 05:59] LABS: ALT (SGPT) < 10 U/L (0-35); AST (SGOT) 16 U/L (14-36); Albumin 3.2 g/dl (3.5-5.0); Alkaline Phosphatase 93 U/L (38-126); Blood Urea Nitrogen 11 mg/dl (7-17); Calcium 8.8 mg/dl (8.4-10.2); Carbon Dioxide 29 mmol/L (22-30); Chloride 103 mmol/L (98-107); Estimated Creatinine Clearance 39 ml/min; Glucose 77 mg/dl (70-99); HDL Cholesterol 31 mg/dl; LDL Cholesterol, Calculated 46 mg/dl; Potassium 4.2 mmol/L (3.5-5.1); Sodium 136 mmol/L (135-145); Total Protein 6.0 g/dl (6.3-8.2); Very Low Density Lipoprotein 16 mg/dl (0-30); eGFR > 60.00
[2025-03-19] MEDS: SYNTHROID 100 MCG PO (06:25)
[2025-03-19] MEDS: SINEMET 25-100 1 TABLET PO ×4 (08:16→19:57)
[2025-03-19] MEDS: VITAMIN B-12 1000 MCG PO (08:16)
[2025-03-19] MEDS: DIOVAN 80 MG PO (08:17)
[2025-03-19] MEDS: VITAMIN D3 (cholecalciferol) 50 MCG PO (08:17)
[2025-03-19] MEDS: KEPPRA 500 MG PO (08:20)
[2025-03-19] MEDS: PRADAXA 150 MG PO ×2 (08:20→19:53)
[2025-03-19] MEDS: PROTONIX 20 MG PO ×2 (08:20→19:53)
[2025-03-19] MEDS: ACTIGALL 300 MG PO (08:20)
[2025-03-19] MEDS: SODIUM CHLORIDE 1 GRAM PO ×2 (08:20→19:54)
[2025-03-19] MEDS: TOPROL XL 100 MG PO (08:20)
[2025-03-19] MEDS: OSCAL CAL 500 500 MG PO (08:20)
[2025-03-19] MEDS: IMDUR (EXTENDED RELEASE) 60 MG PO (08:21)
[2025-03-19] MEDS: MAGNESIUM OXIDE 400 MG PO (08:21)
[2025-03-19] MEDS: SENOKOT-S 1 TABLET PO ×2 (08:21→19:53)
[2025-03-19] MEDS: TIKOSYN 250 MCG PO ×2 (08:22→19:53)
--- NOTE | 2025-03-19 10:28 | W.PN.NEURO.1 ---
Addendum entered and electronically signed by Ivan Tang MD 03/19/25 13:54:
Studies reviewed.
I have personally examined the patient. I reviewed and agree with the FACILITY SERVICE MANAGER's Note.
My addenda:
Awake, alert, interactive. No acute distress.
Speech intact.
Follows 1-step requests w/ mild difficulty. No tremor.
Extra-ocular movements grossly intact.
Facial movements full and symmetric. Hearing intact to normal conversational volume.
Normal UE movements bilaterally.
Neck: full ROM.
Chest: no dyspnea
Heart: no JVD
Ext: (-) Clubbing, (-) Cyanosis, (-) Edema
IMPRESSIONS/RECOMMENDATIONS:
Abrupt onset of generalized tonic-clonic movements with reported current episode of staring today
Increase levetiracetam dosing from 500 mg twice a day to dosing 1000 mg twice a day
Follow MRI of brain results
Follow orthostatic blood pressures
Will continue to follow peripherally.
Original Note:
Today's Communication / Plan
-
.
Neuro Assessment/Plan
Assessment
IMPRESSIONS/RECOMMENDATIONS:
Abrupt onset of generalized tonic-clonic movements, by report. Patient unable to provide her own medical history.
It is possible the patient is experiencing seizures based on patient's prior stroke. Given lack of return to baseline, need further neurological imaging to rule out new structural abnormality producing seizure.
-CT head 03/18/25: No acute intracranial abnormality. Chronic findings, as detailed above.
Plan
-MRI brain w/ and w/o contrast pending.
-Will reconsider need for EEG and lumbar puncture based on MRI brain results.
-Continue levetiracetam 500mg twice a day, seems to be doing okay on this dosing so far.
-Continue home dabigatran and parkinson's medications.
-Neurological checks per unit guidelines.
-PT/OT/ST evaluations.
Subjective/Objective
Subjective Data
Date of Service: March 19, 2025
No acute events overnight. Patient has still not returned to her baseline, conversation is confused.
Objective Data
Vital Signs
Temp Pulse Resp BP Pulse Ox
97.5 F 69 18 159/90 95
03/19/25 07:10 03/19/25 08:17 03/19/25 07:10 03/19/25 08:17 03/19/25 07:10
Lab Results
03/19/25 05:09
03/19/25 05:09
Sodium 136 mmol/L (135-145) 03/19/25 05:09
Potassium 4.2 mmol/L (3.5-5.1) 03/19/25 05:09
BUN 11 mg/dl (7-17) 03/19/25 05:09
Glucose 77 mg/dl (70-99) 03/19/25 05:09
Calcium 8.8 mg/dl (8.4-10.2) 03/19/25 05:09
LDL Cholesterol, Calc 46 mg/dl 03/19/25 05:09
Patient Allergies
adhesive Allergy (Verified 03/18/25 09:03)
Redness, rash
amiodarone Allergy (Verified 03/18/25 09:03)
tremors
diltiazem Allergy (Verified 03/18/25 09:03)
Rash
furosemide (From Lasix) Allergy (Verified 03/18/25 09:03)
Unknown
hydralazine (Hydralazine) Allergy (Verified 03/18/25 09:03)
RAMSEY, Fatigue, Dizziness
Iodinated Contrast Media (Iodinated Contrast Media - IV Dye) Allergy (Verified 03/18/25 09:03)
Rash and Warmth
iodine (Iodine) Allergy (Verified 03/18/25 09:03)
rash with ivp dye
omeprazole Allergy (Verified 03/18/25 09:03)
Nausea
spironolactone Allergy (Verified 03/18/25 09:03)
kidney failure- Hypercalcemia
Physical Exam
-
General: No Apparent Distress
Eyes: No Ptosis and PERRLA
HEENT: Normocephalic and Atraumatic
GI: Non-distended
Psych: Confused
Extended Neurological Exam
Mood & Affect: Mood Unremarkable and Affect Unremarkable
Attention Span & Concentration: Awake, Alert and Interactive
Memory: Reduced
Tremor: Hand Tremor Absent and Head Tremor Absent
Involuntary Movement: None
Speech: Quality Unremarkable, Quantity Unremarkable and Rate of Production Unremarkable
Cranial Nerve VII: Facial Symmetry: Normal Facial Symmetry
Cranial Nerve VIII: Hearing: Unremarkable Hearing to Normal Conversational Volume
Muscle Strength, Overall: Full Throughout
Gait & Station: Negative Up from Seated Without Problem
Data Reviewed
-
CT Head: Report Reviewed and Image Reviewed
MRI Head: Pending
Labs: Report Reviewed
Reviewed with: Physician and Patient
Medications
-
Active Medications
Generic Name Dose Route Start Last Admin
Trade Name Freq PRN Reason Stop Dose Admin
Acetaminophen 650 mg 03/18/25 15:43
Acetaminophen 325 Mg Tablet PO 04/15/25 15:42
Q4HPRN PRN
mild pain/MCGHEE/temp> 100F
Calcium Carbonate 200 mg 03/18/25 15:43
Calcium Antacid 200 Mg (Calcium Carbonate 500 Mg) Chew Tablet PO 04/15/25 15:42
Q8HPRN PRN
gerd
Calcium Carbonate 500 mg 03/19/25 08:00 03/19/25 08:20
Calcium Carbonate 500 Mg Tablet PO 04/16/25 07:59 500 mg
DAILY SOFIA Administration
Carbidopa/Levodopa 1 tablet 03/18/25 18:00 03/19/25 08:16
Carbidopa (25 Mg)/Levodopa (100 Mg) Regular Release Tablet PO 04/15/25 17:59 1 tablet
QID SOFIA Administration
Carbidopa/Levodopa 1 tablet 03/19/25 00:00 03/18/25 23:23
Carbidopa (50 Mg)/Levodopa (200 Mg) Extended Release Tablet PO 04/16/25 00:00 1 tablet
DAILY@0000 SOFIA Administration
Cholecalciferol 50 mcg 03/19/25 08:00 03/19/25 08:17
Cholecalciferol (Vitamin D3) 50 Mcg Tablet (2,000 Units) PO 04/16/25 07:59 50 mcg
DAILY SOFIA Administration
Cyanocobalamin 1,000 mcg 03/19/25 08:00 03/19/25 08:16
Cyanocobalamin (Vitamin B-12) 500 Mcg Tablet PO 04/16/25 07:59 1,000 mcg
DAILY SOFIA Administration
Cyclobenzaprine HCl 7.5 mg 03/18/25 22:00 03/18/25 21:10
Cyclobenzaprine 10 Mg Tablet PO 04/15/25 21:59 7.5 mg
HS SOFIA Administration
Cyclobenzaprine HCl 7.5 mg 03/18/25 15:59
Cyclobenzaprine 10 Mg Tablet PO 04/15/25 15:58
TIDPRN PRN
spasms
Dabigatran 150 mg 03/18/25 20:00 03/19/25 08:20
Dabigatran Etexilate (Pradaxa) 150 Mg Capsule PO 04/15/25 19:59 150 mg
BID SFOIA Administration
Dofetilide 250 mcg 03/18/25 22:00 03/19/25 08:22
Dofetilide 250 Mcg Capsule PO 04/15/25 21:59 250 mcg
BID SOFIA Administration
Isosorbide Mononitrate 60 mg 03/19/25 08:00 03/19/25 08:21
Isosorbide Mononitrate 60 Mg Extended Release Tablet PO 04/16/25 07:59 60 mg
DAILY SOFIA Administration
Levetiracetam 500 mg 10/21/25 20:00 03/19/25 08:20
Levetiracetam 500 Mg Regular Release Tablet PO 04/15/25 19:59 500 mg
BID SOFIA Administration
Levothyroxine Sodium 100 mcg 03/19/25 06:00 03/19/25 06:25
Levothyroxine 100 Mcg Tablet PO 04/16/25 05:59 100 mcg
DAILY @ 0600 SOFIA Administration
Magnesium Oxide 400 mg 03/19/25 08:00 03/19/25 08:21
Magnesium Oxide 400 Mg Tablet PO 04/16/25 07:59 400 mg
DAILY SOFIA Administration
Metoprolol Succinate 50 mg 03/18/25 22:00 03/18/25 21:08
Metoprolol 50 Mg Extended Release Tablet PO 04/15/25 21:59 50 mg
HS SOFIA Administration
Metoprolol Succinate 100 mg 03/19/25 08:00 03/19/25 08:20
Metoprolol 100 Mg Extended Release Tablet PO 04/16/25 07:59 100 mg
DAILY SOFIA Administration
Nifedipine 30 mg 03/18/25 18:00 03/18/25 17:15
Nifedipine 30 Mg Extended Release Tablet PO 04/15/25 17:59 30 mg
QPM SOFIA Administration
Ondansetron HCl 4 mg 03/18/25 15:43
Ondansetron 4 Mg Tablet PO 04/15/25 15:42
Q8HPRN PRN
nausea/vomiting
Pantoprazole Sodium 20 mg 03/18/25 20:00 03/19/25 08:20
Pantoprazole 20 Mg Delayed Release Tablet PO 04/15/25 19:59 20 mg
BID SOFIA Administration
Senna/Docusate Sodium 1 tablet 03/18/25 20:00 03/19/25 08:21
Docusate W/Senna (Lyly-Colace) Tablet PO 04/15/25 19:59 1 tablet
BID SOFIA Administration
Sodium Chloride 1 gram 03/18/25 20:00 03/19/25 08:20
Sodium Chloride 1 Gram Tablet PO 04/15/25 19:59 1 gram
BID SOFIA Administration
Ursodiol 300 mg 03/19/25 08:00 03/19/25 08:20
Ursodiol 300 Mg Capsule PO 04/16/25 07:59 300 mg
DAILY SOFIA Administration
Ursodiol 600 mg 03/18/25 22:00 03/18/25 21:10
Ursodiol 300 Mg Capsule PO 04/15/25 21:59 600 mg
HS SOFIA Administration
Valsartan 80 mg 03/19/25 08:00 03/19/25 08:17
Valsartan 80 Mg Tablet PO 04/16/25 07:59 80 mg
DAILY SOFIA Administration
Home Medications
�Medication �Instructions �Recorded
ursodiol 300 mg capsule 600 mg PO HS Gastrointestinal Issue 01/23/17
isosorbide mononitrate 60 mg 60 mg PO DAILY Heart 05/18/22
tablet,extended release 24 hr Disease/Condition
cholecalciferol (vitamin D3) 50 50 mcg PO DAILY Supplement 06/21/23
mcg (2,000 unit) capsule (Vitamin
D3)
calcium carbonate 500 mg PO DAILY Supplement 12/07/23
pantoprazole 20 mg tablet,delayed 20 mg PO BID Gastrointestinal Issue 02/09/24
release (Protonix)
dofetilide 250 mcg capsule 250 mcg PO BID Arrhythmia 02/16/24
valsartan 80 mg tablet 80 mg PO DAILY Blood Pressure 06/29/24
carbidopa 25 mg-levodopa 100 mg 1 tab PO QID parkinson's disease 11/08/24
tablet (Sinemet)
acetaminophen 325 mg tablet 650 mg PO Q4HPRN PRN mild 11/18/24
pain/MCGHEE/temp> 100F
nifedipine 30 mg tablet,extended 30 mg PO QPM Blood Pressure 11/18/24
release 24 hr
carbidopa ER 50 mg-levodopa 200 mg 1 tab PO DAILY@0000 parkinson's 02/13/25
tablet,extended release disease
clonidine HCl 0.1 mg tablet 0.05 mg PO Q6HPRN PRN SBP>160 02/13/25
cyanocobalamin (vitamin B-12) 1,000 mcg PO DAILY Supplement 02/13/25
1,000 mcg tablet (Vitamin B-12)
ursodiol 300 mg capsule 300 mg PO DAILY Gastrointestinal 02/13/25
Issue
atorvastatin 80 mg tablet 80 mg PO HS cholesterol 03/09/25
bisacodyl 10 mg rectal suppository 10 mg [place] DAILYPRN PRN if no bm 03/09/25
(Dulcolax (bisacodyl)) aftr mom give on day 5
calcium carbonate (Tums) 200 mg PO Q8HPRN PRN gerd 03/09/25
cyclobenzaprine 5 mg tablet 7.5 mg PO HS spasms 03/09/25
cyclobenzaprine 5 mg tablet 7.5 mg PO TIDPRN PRN spasms 03/09/25
dabigatran etexilate 150 mg 150 mg PO BID a-fib 03/09/25
capsule (Pradaxa)
levothyroxine 100 mcg tablet 100 mcg PO DAILY hypothyroidism 03/09/25
magnesium hydroxide 400 mg/5 mL 2,400 mg PO DAILYPRN PRN if no bm 03/09/25
oral suspension (Milk of Magnesia) by 3rd day give on day 4
sennosides 8.6 mg-docusate sodium 1 tab PO BID Constipation 03/09/25
50 mg tablet (Senna Plus)
sodium phosphates 19 gram-7 118 ml [place] DAILYPRN PRN if no bm 03/09/25
gram/118 mL enema (Fleet Enema) aftr dulcolax give on day 6
metoprolol succinate 100 mg 100 mg PO DAILY #30 tabs 03/11/25
tablet,extended release 24 hr
metoprolol succinate 50 mg 50 mg PO HS #30 tabs 03/11/25
tablet,extended release 24 hr
Magnesium Biglycinate 400 mg PO DAILY 03/18/25
ondansetron HCl 4 mg tablet 4 mg PO Q8HPRN PRN nausea/vomiting 03/18/25
sodium chloride 1,000 mg soluble 1,000 mg PO BID Supplement 03/18/25
tablet
--- NOTE | 2025-03-19 12:13 | PTCARENOTE ---
pt w/ few seconds of staring episode as per RN Juanjose. pt confused at baseline, pt states,'I recall staring but not sure why.' BP 150's/60's HR 70's. pt placed back in bed. daughter at the bedside witnessed the staring episode as well. Neuro made
aware at this time. Urget EEG ordered. seizure pads on the bed.
[2025-03-19] MEDS: KEPPRA 500 MG IV (12:38)
--- NOTE | 2025-03-19 15:44 | W.PN.HOSP.TC ---
Today's Communication/Plan
-
EEG
MRI of the brain
Seizure precautions
Keppra
Ammonia level
Assessment / Plan
Assessment / Plan
Impression
Witnessed tonic-clonic seizure at nursing facility. New onset.
Conditions prior to admission
Recent hospitalization for urinary tract infection complicated with toxic metabolic encephalopathy 03/09 - 03/11. Completed course of antibiotics.
Parkinson disease
Chronic hyponatremia
Persistent atrial fibrillation
Anticoagulation with Pradaxa
Essential hypertension
Dyslipidemia
Hypothyroidism
Primary biliary cirrhosis, compensated
Plan
Presented after episode of witnessed tonic-clonic seizure.
Mentation is back to baseline baseline no focal findings on exam.
CT scan of the head with no acute abnormality.
EEG pending.
MRI of the brain pending.
Initiated and loaded with Keppra.
Continue seizure precautions.
Check ammonia level
Parkinson's disease baseline continue preadmission Sinemet
Recently treated UTI.
Complete course of antibiotics per
Afebrile with normal white count
Monitor closely
Persistent atrial fibrillation
Anticoagulation with Pradaxa
Essential hypertension
Continue preadmission cardiovascular regimen including Tikosyn, metoprolol, isosorbide, nifedipine, valsartan.
Primary biliary cirrhosis.
Ammonia level pending.
Continue ursodiol
Hypothyroidism on replacement
Anticipated Discharge: 24 - 48 hours
Subjective/Interval History
-
Date of Service: March 19, 2025
Objective Data
-
Labs:
Laboratory Results
03/19/25
05:09
WBC 6.8
Hgb 8.9 L
Hct 27.1 L
Plt Count 258
Sodium 136
Potassium 4.2
Chloride 103
Carbon Dioxide 29
BUN 11
Creatinine 0.7
Glucose 77
Calcium 8.8
Total Bilirubin 0.5
AST 16
ALT < 10
Alkaline Phosphatase 93
Vital Signs:
Vital Signs
Temp Pulse Resp BP Pulse Ox
97.4 F 71 16 158/73 98
03/19/25 11:30 03/19/25 11:30 03/19/25 11:30 03/19/25 11:30 03/19/25 11:30
I&O
03/18/25 03/19/25 03/20/25
06:59 06:59 06:59
Intake Total 0 / 0
Output Total 225 / 225
Balance -225 / -225
Physical Exam
-
General: Well Developed and No Apparent Distress
HEENT: Normocephalic, Atraumatic and Moist Mucous Membranes
Respiratory: Clear to Auscultation
Cardiac: Regular Rhythm and S1/S2; Negative Murmur, Rub or Gallop
GI: Soft, Nontender, Nondistended and Normal Bowel Sounds; Negative Organomegaly
Rectal: Deferred by Provider
Musculoskeletal: No Clubbing, No Cyanosis and No Edema
Skin: Negative Rash
Neuro: Awake, Alert, Oriented (To name only) and Nonfocal/Grossly Intact
--- NOTE | 2025-03-19 17:09 | EEG.RPT ---
Electroencephalogram Report
Recording
Date of EE03/19/25
Type of EEG: Routine
Length of EEG recordin minutes
Done with Video Recording: Yes
Patient Status: Inpatient
Recording Conditions: Awake and Drowsy
Hyperventilation Performed: No
Photic Stimulation Performed: Yes
Report
GREATER THAN 1 HOUR EEG REPORT
EEG INTERPRETATION:
Moderately abnormal EEG for advanced age due to a single burst of rhythmic low amplitude focal epileptiform appearing activity.
CLINICAL CORRELATION:
Although normative values have not been established for a person of this advanced age, this study was suggestive of a left central epileptiform focus. No seizures were recorded during the study. Patient did not have a clinical correlate at the
time.
Clinical correlation is advised.
METHODS:
A 21 channel digitized electroencephalogram (EEG) was performed at the bedside. The 10/20 international system of electrode placement was used with ECG and lateral/vertical eye movements recorded. The [employer] quantitative measurement system was
utilized.
ELECTROENCEPHALOGRAPHER IMPRESSION(S):
Quality of study
Good
Background
When fully awake normal anterior-posterior voltage gradient organization
Maximal background frequency alpha, predominance of the study was theta
No significant asymmetries of background activity noted.
Sleep
Drowsiness present
Hyperventilation
Not performed
Photic Stimulation
Failed to activate the record
ECG
Normal sinus rhythm
Abnormal activity
A single burst of rhythmic low amplitude theta activity emanating from the left frontocentral region and lasting for approximately 3 seconds
[2025-03-19] MEDS: PROCARDIA XL (EXTENDED RELEASE) PO (17:35)
[2025-03-19 19:00] LABS: Ammonia < 9 umol/L (9-30)
[2025-03-19] MEDS: KEPPRA 1000 MG PO (19:53)
[2025-03-19] MEDS: ACTIGALL 600 MG PO (19:57)
[2025-03-19] MEDS: FLEXERIL 7.5 MG PO (19:57)
[2025-03-19] MEDS: TOPROL XL 50 MG PO (19:57)
[2025-03-20] MEDS: SINEMET CR 50/200 (EXTENDED RELEASE) 1 TABLET PO (00:58)
[2025-03-20 03:30] VITALS: BP 107/46
[2025-03-20] MEDS: SYNTHROID 100 MCG PO (05:04)
[2025-03-20 06:19] LABS: Hematocrit 25.5 % (37.0-47.0); Hemoglobin 8.1 g/dL (12.0-16.0); Mean Corp Hgb Conc. 31.8 g/dL (33.0-37.0); Mean Corpuscular Volume 90.1 fL (81.0-99.0); Nucleated Red Blood Cells % 0 %; Platelet Count 236 10^3/uL (130-400); Red Cell Dist. Width 14.0 % (11.5-14.5)
[2025-03-20 06:40] LABS: ALT (SGPT) < 10 U/L (0-35); AST (SGOT) 16 U/L (14-36); Albumin 3.1 g/dl (3.5-5.0); Alkaline Phosphatase 100 U/L (38-126); Blood Urea Nitrogen 16 mg/dl (7-17); Calcium 8.8 mg/dl (8.4-10.2); Carbon Dioxide 28 mmol/L (22-30); Chloride 103 mmol/L (98-107); Estimated Creatinine Clearance 34 ml/min; Glucose 90 mg/dl (70-99); Potassium 4.1 mmol/L (3.5-5.1); Sodium 133 mmol/L (135-145); Total Protein 6.0 g/dl (6.3-8.2); eGFR > 60.00
[2025-03-20 07:34] VITALS: BP 119/59
[2025-03-20] MEDS: VITAMIN B-12 1000 MCG PO (09:03)
[2025-03-20] MEDS: DIOVAN 80 MG PO (09:03)
[2025-03-20] MEDS: ACTIGALL 300 MG PO (09:04)
[2025-03-20] MEDS: PRADAXA 150 MG PO ×2 (09:04→21:15)
[2025-03-20] MEDS: SODIUM CHLORIDE 1 GRAM PO ×2 (09:05→21:16)
[2025-03-20] MEDS: IMDUR (EXTENDED RELEASE) 60 MG PO (09:05)
[2025-03-20] MEDS: OSCAL CAL 500 500 MG PO (09:05)
[2025-03-20] MEDS: TIKOSYN 250 MCG PO ×2 (09:05→21:15)
[2025-03-20] MEDS: PROTONIX 20 MG PO ×2 (09:06→21:16)
[2025-03-20] MEDS: KEPPRA 1000 MG PO ×2 (09:06→21:16)
[2025-03-20] MEDS: VITAMIN D3 (cholecalciferol) 50 MCG PO (09:06)
[2025-03-20] MEDS: TOPROL XL 100 MG PO (09:07)
[2025-03-20] MEDS: SENOKOT-S 1 TABLET PO ×2 (09:07→21:16)
[2025-03-20] MEDS: MAGNESIUM OXIDE 400 MG PO (09:07)
[2025-03-20] MEDS: SINEMET 25-100 1 TABLET PO ×4 (09:07→21:17)
--- NOTE | 2025-03-20 11:03 | W.PN.NEURO.1 ---
Addendum entered and electronically signed by Ivan Tang MD 03/20/25 13:56:
Studies reviewed.
I have personally examined the patient. I reviewed and agree with the OWNER ORAL SURGEON's Note.
My addenda:
Awake, alert, interactive. No acute distress.
Speech intact.
Follows 1-step requests w/o difficulty. No tremor.
Extra-ocular movements grossly intact.
Facial movements full and symmetric. Hearing intact to normal conversational volume.
Normal UE movements bilaterally.
Neck: full ROM.
Chest: no dyspnea
Heart: no JVD
Ext: (-) Clubbing, (-) Cyanosis, (-) Edema
IMPRESSIONS/RECOMMENDATIONS:
Abrupt onset of change in mental status with mildly abnormal EEG. Most likely patient has experienced focal onset generalizing seizures. Seizures most likely secondary to prior stroke.
Patient had increase in levetiracetam dosing from 500 mg to 1000 mg twice a day
We will follow MRI of brain results
Continue usual anti-Parkinson's regimen
Continue dabigatran
D/W patient / family
All questions answered.
Will continue to follow as needed.
Original Note:
Documented by User: Allyson Laws NP 03/20/25 11:17
Today's Communication / Plan
-
.
Neuro Assessment/Plan
Assessment
IMPRESSIONS/RECOMMENDATIONS:
Abrupt onset of generalized tonic-clonic movements, by report. Patient unable to provide her own medical history.
It is possible the patient is experiencing seizures based on patient's prior stroke. Given lack of return to baseline, need further neurological imaging to rule out new structural abnormality producing seizure.
-EEG 03/19/25 was abnormal given a single burst of rhythmic low amplitude focal epileptiform appearing activity.
-CT head 03/18/25: No acute intracranial abnormality. Chronic findings, as detailed above.
Plan
-MRI brain w/ and w/o contrast pending.
-Levetiracetam 500mg increased to 1000mg twice a day.
-Continue home dabigatran and parkinson's medications.
-Neurological checks per unit guidelines.
-PT/OT/ST evaluations.
Subjective/Objective
Subjective Data
Date of Service: March 20, 2025
Patient had an episode of starring yesterday witnessed by staff and her daughter. Keppra dosing was increased and they deny any further episodes. Patient reports feeling improved today but still not quite at her baseline.
Objective Data
Vital Signs
Temp Pulse Resp BP Pulse Ox
98.5 F 72 18 119/59 95
03/20/25 07:34 03/20/25 09:07 03/20/25 07:34 03/20/25 09:07 03/20/25 08:55
Lab Results
03/20/25 05:46
03/20/25 05:46
Sodium 133 mmol/L (135-145) L 03/20/25 05:46
Potassium 4.1 mmol/L (3.5-5.1) 03/20/25 05:46
BUN 16 mg/dl (7-17) 03/20/25 05:46
Glucose 90 mg/dl (70-99) 03/20/25 05:46
Calcium 8.8 mg/dl (8.4-10.2) 03/20/25 05:46
LDL Cholesterol, Calc 46 mg/dl 03/19/25 05:09
Patient Allergies
adhesive Allergy (Verified 03/18/25 09:03)
Redness, rash
amiodarone Allergy (Verified 03/18/25 09:03)
tremors
diltiazem Allergy (Verified 03/18/25 09:03)
Rash
furosemide (From Lasix) Allergy (Verified 03/18/25 09:03)
Unknown
hydralazine (Hydralazine) Allergy (Verified 03/18/25 09:03)
RAMSEY, Fatigue, Dizziness
Iodinated Contrast Media (Iodinated Contrast Media - IV Dye) Allergy (Verified 03/18/25 09:03)
Rash and Warmth
iodine (Iodine) Allergy (Verified 03/18/25 09:03)
rash with ivp dye
omeprazole Allergy (Verified 03/18/25 09:03)
Nausea
spironolactone Allergy (Verified 03/18/25 09:03)
kidney failure- Hypercalcemia
Review of Systems
-
History Source: Patient
EENT: Negative Blurry Vision, Decreased Vision or Swallowing Difficulty
Respiratory: Negative Cough or Trouble Breathing
Cardiac: Negative Chest Pain or Palpitations
Neuro: Negative Dizzy, Headache, Weakness, Numbness, Ataxia, Tremors or Speech Problem
Physical Exam
-
General: No Apparent Distress
Eyes: No Ptosis and PERRLA
HEENT: Normocephalic and Atraumatic
GI: Non-distended
Extended Neurological Exam
Mood & Affect: Mood Unremarkable and Affect Unremarkable
Attention Span & Concentration: Awake, Alert and Interactive
Memory: Reduced
Tremor: Hand Tremor Absent and Head Tremor Absent
Involuntary Movement: None
Speech: Quality Unremarkable, Quantity Unremarkable and Rate of Production Unremarkable
Cranial Nerve VII: Facial Symmetry: Normal Facial Symmetry
Cranial Nerve VIII: Hearing: Unremarkable Hearing to Normal Conversational Volume
Muscle Strength, Overall: Full Throughout
Coordination: [id number] Testing Unremarkable
Data Reviewed
-
MRI Head: Pending
EEG: Report Reviewed
Labs: Report Reviewed
Reviewed with: Physician, Patient and Family
Medications
-
Active Medications
Generic Name Dose Route Start Last Admin
Trade Name Freq PRN Reason Stop Dose Admin
Acetaminophen 650 mg 03/18/25 15:43
Acetaminophen 325 Mg Tablet PO 04/15/25 15:42
Q4HPRN PRN
mild pain/MCGHEE/temp> 100F
Calcium Carbonate 200 mg 03/18/25 15:43
Calcium Antacid 200 Mg (Calcium Carbonate 500 Mg) Chew Tablet PO 04/15/25 15:42
Q8HPRN PRN
gerd
Calcium Carbonate 500 mg 03/19/25 08:00 03/20/25 09:05
Calcium Carbonate 500 Mg Tablet PO 04/16/25 07:59 500 mg
DAILY SOFIA Administration
Carbidopa/Levodopa 1 tablet 03/18/25 18:00 03/20/25 09:07
Carbidopa (25 Mg)/Levodopa (100 Mg) Regular Release Tablet PO 04/15/25 17:59 1 tablet
QID SOFIA Administration
Carbidopa/Levodopa 1 tablet 03/19/25 00:00 03/20/25 00:58
Carbidopa (50 Mg)/Levodopa (200 Mg) Extended Release Tablet PO 04/16/25 00:00 1 tablet
DAILY@0000 SOFIA Administration
Cholecalciferol 50 mcg 03/19/25 08:00 03/20/25 09:06
Cholecalciferol (Vitamin D3) 50 Mcg Tablet (2,000 Units) PO 04/16/25 07:59 50 mcg
DAILY SOFIA Administration
Cyanocobalamin 1,000 mcg 03/19/25 08:00 03/20/25 09:03
Cyanocobalamin (Vitamin B-12) 500 Mcg Tablet PO 04/16/25 07:59 1,000 mcg
DAILY SOFIA Administration
Cyclobenzaprine HCl 7.5 mg 03/18/25 22:00 03/19/25 19:57
Cyclobenzaprine 10 Mg Tablet PO 04/15/25 21:59 7.5 mg
HS SOFIA Administration
Cyclobenzaprine HCl 7.5 mg 03/18/25 15:59
Cyclobenzaprine 10 Mg Tablet PO 04/15/25 15:58
TIDPRN PRN
spasms
Dabigatran 150 mg 03/18/25 20:00 03/20/25 09:04
Dabigatran Etexilate (Pradaxa) 150 Mg Capsule PO 04/15/25 19:59 150 mg
BID SOFIA Administration
Dofetilide 250 mcg 03/18/25 22:00 03/20/25 09:05
Dofetilide 250 Mcg Capsule PO 04/15/25 21:59 250 mcg
BID SOFIA Administration
Isosorbide Mononitrate 60 mg 03/19/25 08:00 03/20/25 09:05
Isosorbide Mononitrate 60 Mg Extended Release Tablet PO 04/16/25 07:59 60 mg
DAILY SOFIA Administration
Levetiracetam 1,000 mg 03/19/25 12:23 03/20/25 09:06
Levetiracetam 500 Mg Regular Release Tablet PO 04/15/25 19:59 1,000 mg
BID SOFIA Administration
Levothyroxine Sodium 100 mcg 03/19/25 06:00 03/20/25 05:04
Levothyroxine 100 Mcg Tablet PO 04/16/25 05:59 100 mcg
DAILY @ 0600 SOFIA Administration
Magnesium Oxide 400 mg 03/19/25 08:00 03/20/25 09:07
Magnesium Oxide 400 Mg Tablet PO 04/16/25 07:59 400 mg
DAILY SOFIA Administration
Metoprolol Succinate 50 mg 03/18/25 22:00 03/19/25 19:57
Metoprolol 50 Mg Extended Release Tablet PO 04/15/25 21:59 50 mg
HS SOFIA Administration
Metoprolol Succinate 100 mg 03/19/25 08:00 03/20/25 09:07
Metoprolol 100 Mg Extended Release Tablet PO 04/16/25 07:59 100 mg
DAILY SOFIA Administration
Nifedipine 30 mg 03/18/25 18:00 03/19/25 17:35
Nifedipine 30 Mg Extended Release Tablet PO 04/15/25 17:59 Not Given
QPM SOFIA
Ondansetron HCl 4 mg 03/18/25 15:43
Ondansetron 4 Mg Tablet PO 04/15/25 15:42
Q8HPRN PRN
nausea/vomiting
Pantoprazole Sodium 20 mg 03/18/25 20:00 03/20/25 09:06
Pantoprazole 20 Mg Delayed Release Tablet PO 04/15/25 19:59 20 mg
BID SOFIA Administration
Senna/Docusate Sodium 1 tablet 03/18/25 20:00 03/20/25 09:07
Docusate W/Senna (Lyly-Colace) Tablet PO 04/15/25 19:59 1 tablet
BID SOFIA Administration
Sodium Chloride 1 gram 03/18/25 20:00 03/20/25 09:05
Sodium Chloride 1 Gram Tablet PO 04/15/25 19:59 1 gram
BID SOFIA Administration
Ursodiol 300 mg 03/19/25 08:00 03/20/25 09:04
Ursodiol 300 Mg Capsule PO 04/16/25 07:59 300 mg
DAILY SOFIA Administration
Ursodiol 600 mg 03/18/25 22:00 03/19/25 19:57
Ursodiol 300 Mg Capsule PO 04/15/25 21:59 600 mg
HS SOFIA Administration
Valsartan 80 mg 03/19/25 08:00 03/20/25 09:03
Valsartan 80 Mg Tablet PO 04/16/25 07:59 80 mg
DAILY SOFIA Administration
Home Medications
�Medication �Instructions �Recorded
ursodiol 300 mg capsule 600 mg PO HS Gastrointestinal Issue 01/23/17
isosorbide mononitrate 60 mg 60 mg PO DAILY Heart 05/18/22
tablet,extended release 24 hr Disease/Condition
cholecalciferol (vitamin D3) 50 50 mcg PO DAILY Supplement 06/21/23
mcg (2,000 unit) capsule (Vitamin
D3)
calcium carbonate 500 mg PO DAILY Supplement 12/07/23
pantoprazole 20 mg tablet,delayed 20 mg PO BID Gastrointestinal Issue 02/09/24
release (Protonix)
dofetilide 250 mcg capsule 250 mcg PO BID Arrhythmia 02/16/24
valsartan 80 mg tablet 80 mg PO DAILY Blood Pressure 06/29/24
carbidopa 25 mg-levodopa 100 mg 1 tab PO QID parkinson's disease 11/08/24
tablet (Sinemet)
acetaminophen 325 mg tablet 650 mg PO Q4HPRN PRN mild 11/18/24
pain/MCGHEE/temp> 100F
nifedipine 30 mg tablet,extended 30 mg PO QPM Blood Pressure 11/18/24
release 24 hr
carbidopa ER 50 mg-levodopa 200 mg 1 tab PO DAILY@0000 parkinson's 02/13/25
tablet,extended release disease
clonidine HCl 0.1 mg tablet 0.05 mg PO Q6HPRN PRN SBP>160 02/13/25
cyanocobalamin (vitamin B-12) 1,000 mcg PO DAILY Supplement 02/13/25
1,000 mcg tablet (Vitamin B-12)
ursodiol 300 mg capsule 300 mg PO DAILY Gastrointestinal 02/13/25
Issue
atorvastatin 80 mg tablet 80 mg PO HS cholesterol 03/09/25
bisacodyl 10 mg rectal suppository 10 mg AL DAILYPRN PRN if no bm 03/09/25
(Dulcolax (bisacodyl)) aftr mom give on day 5
calcium carbonate (Tums) 200 mg PO Q8HPRN PRN gerd 03/09/25
cyclobenzaprine 5 mg tablet 7.5 mg PO HS spasms 03/09/25
cyclobenzaprine 5 mg tablet 7.5 mg PO TIDPRN PRN spasms 03/09/25
dabigatran etexilate 150 mg 150 mg PO BID a-fib 03/09/25
capsule (Pradaxa)
levothyroxine 100 mcg tablet 100 mcg PO DAILY hypothyroidism 03/09/25
magnesium hydroxide 400 mg/5 mL 2,400 mg PO DAILYPRN PRN if no bm 03/09/25
oral suspension (Milk of Magnesia) by 3rd day give on day 4
sennosides 8.6 mg-docusate sodium 1 tab PO BID Constipation 03/09/25
50 mg tablet (Senna Plus)
sodium phosphates 19 gram-7 118 ml AL DAILYPRN PRN if no bm 03/09/25
gram/118 mL enema (Fleet Enema) aftr dulcolax give on day 6
metoprolol succinate 100 mg 100 mg PO DAILY #30 tabs 03/11/25
tablet,extended release 24 hr
metoprolol succinate 50 mg 50 mg PO HS #30 tabs 03/11/25
tablet,extended release 24 hr
Magnesium Biglycinate 400 mg PO DAILY 03/18/25
ondansetron HCl 4 mg tablet 4 mg PO Q8HPRN PRN nausea/vomiting 03/18/25
sodium chloride 1,000 mg soluble 1,000 mg PO BID Supplement 03/18/25
tablet

Documented by User: Ivan Tang MD 03/20/25 13:45
Past History
Past History
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
ED Past Surgical History: Cardiac (Pacemaker, PTCI) and Other (Mastectomy L, renal artery PTCI)
Social History
Tobacco: Former smoker
Alcohol: Occasional
Drug: None
Personal: Other
Living: alone
Employment: Retired
Family History
Family History: Other
Medications
-
Medications:
Generic Name Dose Route Start Last Admin
Trade Name Freq PRN Reason Stop Dose Admin
Acetaminophen 650 mg 03/18/25 15:43
Acetaminophen 325 Mg Tablet PO 04/15/25 15:42
Q4HPRN PRN
mild pain/MCGHEE/temp> 100F
Calcium Carbonate 200 mg 03/18/25 15:43
Calcium Antacid 200 Mg (Calcium Carbonate 500 Mg) Chew Tablet PO 04/15/25 15:42
Q8HPRN PRN
gerd
Calcium Carbonate 500 mg 03/19/25 08:00 03/20/25 09:05
Calcium Carbonate 500 Mg Tablet PO 04/16/25 07:59 500 mg
DAILY SOFIA Administration
Carbidopa/Levodopa 1 tablet 03/18/25 18:00 03/20/25 13:06
Carbidopa (25 Mg)/Levodopa (100 Mg) Regular Release Tablet PO 04/15/25 17:59 1 tablet
QID SOFIA Administration
Carbidopa/Levodopa 1 tablet 03/19/25 00:00 03/20/25 00:58
Carbidopa (50 Mg)/Levodopa (200 Mg) Extended Release Tablet PO 04/16/25 00:00 1 tablet
DAILY@0000 SOFIA Administration
Cholecalciferol 50 mcg 03/19/25 08:00 03/20/25 09:06
Cholecalciferol (Vitamin D3) 50 Mcg Tablet (2,000 Units) PO 04/16/25 07:59 50 mcg
DAILY SOFIA Administration
Cyanocobalamin 1,000 mcg 03/19/25 08:00 03/20/25 09:03
Cyanocobalamin (Vitamin B-12) 500 Mcg Tablet PO 04/16/25 07:59 1,000 mcg
DAILY SOFIA Administration
Cyclobenzaprine HCl 7.5 mg 03/18/25 22:00 03/19/25 19:57
Cyclobenzaprine 10 Mg Tablet PO 04/15/25 21:59 7.5 mg
HS SOFIA Administration
Cyclobenzaprine HCl 7.5 mg 03/18/25 15:59
Cyclobenzaprine 10 Mg Tablet PO 04/15/25 15:58
TIDPRN PRN
spasms
Dabigatran 150 mg 03/18/25 20:00 03/20/25 09:04
Dabigatran Etexilate (Pradaxa) 150 Mg Capsule PO 04/15/25 19:59 150 mg
BID SOFIA Administration
Dofetilide 250 mcg 03/18/25 22:00 03/20/25 09:05
Dofetilide 250 Mcg Capsule PO 04/15/25 21:59 250 mcg
BID SOFIA Administration
Isosorbide Mononitrate 60 mg 03/19/25 08:00 03/20/25 09:05
Isosorbide Mononitrate 60 Mg Extended Release Tablet PO 04/16/25 07:59 60 mg
DAILY SOFIA Administration
Levetiracetam 1,000 mg 03/19/25 12:23 03/20/25 09:06
Levetiracetam 500 Mg Regular Release Tablet PO 04/15/25 19:59 1,000 mg
BID SOFIA Administration
Levothyroxine Sodium 100 mcg 03/19/25 06:00 03/20/25 05:04
Levothyroxine 100 Mcg Tablet PO 04/16/25 05:59 100 mcg
DAILY @ 0600 SOFIA Administration
Magnesium Oxide 400 mg 03/19/25 08:00 03/20/25 09:07
Magnesium Oxide 400 Mg Tablet PO 04/16/25 07:59 400 mg
DAILY SOFIA Administration
Metoprolol Succinate 50 mg 03/18/25 22:00 03/19/25 19:57
Metoprolol 50 Mg Extended Release Tablet PO 04/15/25 21:59 50 mg
HS SOFIA Administration
Metoprolol Succinate 100 mg 03/19/25 08:00 03/20/25 09:07
Metoprolol 100 Mg Extended Release Tablet PO 04/16/25 07:59 100 mg
DAILY SOFIA Administration
Nifedipine 30 mg 03/18/25 18:00 03/19/25 17:35
Nifedipine 30 Mg Extended Release Tablet PO 04/15/25 17:59 Not Given
QPM SOFIA
Ondansetron HCl 4 mg 03/18/25 15:43
Ondansetron 4 Mg Tablet PO 04/15/25 15:42
Q8HPRN PRN
nausea/vomiting
Pantoprazole Sodium 20 mg 03/18/25 20:00 03/20/25 09:06
Pantoprazole 20 Mg Delayed Release Tablet PO 04/15/25 19:59 20 mg
BID SOFIA Administration
Senna/Docusate Sodium 1 tablet 03/18/25 20:00 03/20/25 09:07
Docusate W/Senna (Lyly-Colace) Tablet PO 04/15/25 19:59 1 tablet
BID SOFIA Administration
Sodium Chloride 1 gram 03/18/25 20:00 03/20/25 09:05
Sodium Chloride 1 Gram Tablet PO 04/15/25 19:59 1 gram
BID SOFIA Administration
Ursodiol 300 mg 03/19/25 08:00 03/20/25 09:04
Ursodiol 300 Mg Capsule PO 04/16/25 07:59 300 mg
DAILY SOFIA Administration
Ursodiol 600 mg 03/18/25 22:00 03/19/25 19:57
Ursodiol 300 Mg Capsule PO 04/15/25 21:59 600 mg
HS SOFIA Administration
Valsartan 80 mg 03/19/25 08:00 03/20/25 09:03
Valsartan 80 Mg Tablet PO 04/16/25 07:59 80 mg
DAILY SOFIA Administration
[2025-03-20 11:05] VITALS: BP 139/52
--- NOTE | 2025-03-20 15:05 | W.PN.HOSP.TC ---
Today's Communication/Plan
-
Continue Keppra
MRI
Discharge planning
Assessment / Plan
Assessment / Plan
Impression
Witnessed tonic-clonic seizure at nursing facility. New onset.
Conditions prior to admission
Recent hospitalization for urinary tract infection complicated with toxic metabolic encephalopathy 03/09 - 03/11. Completed course of antibiotics.
Parkinson disease
Chronic hyponatremia
Persistent atrial fibrillation
Anticoagulation with Pradaxa
Essential hypertension
Dyslipidemia
Hypothyroidism
Primary biliary cirrhosis, compensated
Plan
Presented after episode of witnessed tonic-clonic seizure.
Mentation is back to baseline baseline no focal findings on exam.
CT scan of the head with no acute abnormality.
EEG pending.
MRI of the brain pending.
Initiated and loaded with Keppra.
Continue seizure precautions.
No evidence for decompensated cirrhosis. Ammonia level undetectable.
Parkinson's disease baseline continue preadmission Sinemet
Recently treated UTI.
Complete course of antibiotics per
Afebrile with normal white count
Monitor closely
Persistent atrial fibrillation
Anticoagulation with Pradaxa
Essential hypertension
Continue preadmission cardiovascular regimen including Tikosyn, metoprolol, isosorbide, nifedipine, valsartan.
Primary biliary cirrhosis.
Compensated without evidence of hepatic encephalopathy
Ammonia level undetectable
Continue ursodiol
Hypothyroidism on replacement
Anticipated Discharge: 24 - 48 hours
Subjective/Interval History
-
Date of Service: March 20, 2025
Objective Data
-
Labs:
Laboratory Results
03/20/25
05:46
WBC 7.0
Hgb 8.1 L
Hct 25.5 L
Plt Count 236
Sodium 133 L
Potassium 4.1
Chloride 103
Carbon Dioxide 28
BUN 16
Creatinine 0.8
Glucose 90
Calcium 8.8
Total Bilirubin 0.6
AST 16
ALT < 10
Alkaline Phosphatase 100
Vital Signs:
Vital Signs
Temp Pulse Resp BP Pulse Ox
97.9 F 70 18 139/52 96
03/20/25 11:05 03/20/25 11:05 03/20/25 11:05 03/20/25 11:05 03/20/25 13:25
I&O
03/19/25 03/20/25 03/21/25
06:59 06:59 06:59
Intake Total 0 / 0 120 / 120
Output Total 225 / 225 675 / 675
Balance -225 / -225 -555 / -555
Physical Exam
-
General: Well Developed and No Apparent Distress
HEENT: Normocephalic, Atraumatic and Moist Mucous Membranes
Respiratory: Clear to Auscultation
Cardiac: Regular Rhythm and S1/S2; Negative Murmur, Rub or Gallop
GI: Soft, Nontender, Nondistended and Normal Bowel Sounds; Negative Organomegaly
Rectal: Deferred by Provider
Musculoskeletal: No Clubbing, No Cyanosis and No Edema
Skin: Negative Rash
Neuro: Awake, Alert, Oriented (To name only) and Nonfocal/Grossly Intact
[2025-03-20 15:27] VITALS: BP 135/54
--- NOTE | 2025-03-20 16:36 | CM ---
PT Ot indicate SNF .
Spoke with patient and dgts they wnat pt to return to [facility] . Will need auth .
Spoke with Lulu at [facility] referral placed . Requested NPIs.
Will need auth .
Pt need MRI
PLAN To [facility] after auth
[2025-03-20] MEDS: PROCARDIA XL (EXTENDED RELEASE) 30 MG PO (18:26)
[2025-03-20 19:51] VITALS: BP 120/49
[2025-03-20] MEDS: FLEXERIL 7.5 MG PO (21:15)
[2025-03-20] MEDS: TOPROL XL 50 MG PO (21:16)
[2025-03-20] MEDS: ACTIGALL 600 MG PO (21:17)
[2025-03-20 23:38] VITALS: BP 145/53
[2025-03-21] MEDS: SINEMET CR 50/200 (EXTENDED RELEASE) 1 TABLET PO (00:25)
[2025-03-21 03:16] VITALS: BP 101/58
[2025-03-21 04:39] LABS: Hematocrit 25.0 % (37.0-47.0); Hemoglobin 8.0 g/dL (12.0-16.0); Mean Corp Hgb Conc. 32.0 g/dL (33.0-37.0); Mean Corpuscular Volume 88.7 fL (81.0-99.0); Nucleated Red Blood Cells % 0 %; Platelet Count 219 10^3/uL (130-400); Red Cell Dist. Width 14.1 % (11.5-14.5)
[2025-03-21 05:07] LABS: ALT (SGPT) < 10 U/L (0-35); AST (SGOT) 15 U/L (14-36); Albumin 3.1 g/dl (3.5-5.0); Alkaline Phosphatase 104 U/L (38-126); Blood Urea Nitrogen 13 mg/dl (7-17); Calcium 8.6 mg/dl (8.4-10.2); Carbon Dioxide 29 mmol/L (22-30); Chloride 105 mmol/L (98-107); Estimated Creatinine Clearance 39 ml/min; Glucose 104 mg/dl (70-99); Potassium 4.1 mmol/L (3.5-5.1); Sodium 137 mmol/L (135-145); Total Protein 6.0 g/dl (6.3-8.2); eGFR > 60.00
[2025-03-21] MEDS: SYNTHROID 100 MCG PO (05:17)
--- NOTE | 2025-03-21 08:28 | W.PN.NEURO.1 ---
Today's Communication / Plan
-
Levetiracetam 500mg increased to 1000mg twice a day.
Continue home dabigatran and anti-Parkinson's medications.
Patient should have outpatient evaluation by neurosurgical spine surgery due to significant cervical spine stenosis suggested on MRI of brain
Neuro Assessment/Plan
Assessment
IMPRESSIONS/RECOMMENDATIONS:
Abrupt onset of generalized tonic-clonic movements, by report. Patient unable to provide her own medical history.
It is possible the patient is experiencing seizures based on patient's prior stroke. Given lack of return to baseline, need further neurological imaging to rule out new structural abnormality producing seizure.
-EEG 03/19/25 was abnormal given a single burst of rhythmic low amplitude focal epileptiform appearing activity.
-CT head 03/18/25: No acute intracranial abnormality. Chronic findings, as detailed above.
I disagree with the suggestion that the patient has had an acute ischemic stroke. I believe that the finding demonstrated above is spurious. The patient was not a candidate for either TNK or mechanical thrombectomy due to timeframe out of window
and NIH stroke scale less than 6
Plan
-Levetiracetam 500mg increased to 1000mg twice a day.
-Continue home dabigatran and anti-Parkinson's medications.
Patient should have outpatient evaluation by neurosurgical spine surgery due to significant cervical spine stenosis suggested on MRI of brain
-Neurological checks per unit guidelines.
-PT/OT/ST evaluations.
Will follow as needed
Subjective/Objective
Subjective Data
Date of Service: March 21, 2025
Objective Data
Vital Signs
Temp Pulse Resp BP Pulse Ox
36.7 C 71 18 101/58 95
03/21/25 03:16 03/21/25 03:16 03/21/25 03:16 03/21/25 03:16 03/21/25 03:16
Lab Results
03/21/25 04:18
03/21/25 04:18
Sodium 137 mmol/L (135-145) 03/21/25 04:18
Potassium 4.1 mmol/L (3.5-5.1) 03/21/25 04:18
BUN 13 mg/dl (7-17) 03/21/25 04:18
Glucose 104 mg/dl (70-99) H 03/21/25 04:18
Calcium 8.6 mg/dl (8.4-10.2) 03/21/25 04:18
LDL Cholesterol, Calc 46 mg/dl 03/19/25 05:09
Patient Allergies
adhesive Allergy (Verified 03/18/25 09:03)
Redness, rash
amiodarone Allergy (Verified 03/18/25 09:03)
tremors
diltiazem Allergy (Verified 03/18/25 09:03)
Rash
furosemide (From Lasix) Allergy (Verified 03/18/25 09:03)
Unknown
hydralazine (Hydralazine) Allergy (Verified 03/18/25 09:03)
RAMSEY, Fatigue, Dizziness
Iodinated Contrast Media (Iodinated Contrast Media - IV Dye) Allergy (Verified 03/18/25 09:03)
Rash and Warmth
iodine (Iodine) Allergy (Verified 03/18/25 09:03)
rash with ivp dye
omeprazole Allergy (Verified 03/18/25 09:03)
Nausea
spironolactone Allergy (Verified 03/18/25 09:03)
kidney failure- Hypercalcemia
Data Reviewed
-
MRI Head: Report Reviewed and Image Reviewed
Labs: Report Reviewed
Lipid Profile: Report Reviewed
Reviewed with: Nurse Practioner
Old Records: Summarized
Past History
Past History
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
ED Past Surgical History: Cardiac (Pacemaker, PTCI) and Other (Mastectomy L, renal artery PTCI)
Social History
Tobacco: Former smoker
Alcohol: Occasional
Drug: None
Personal: Other
Living: alone
Employment: Retired
Family History
Family History: Other (Reviewed and noncontributory)
Medications
-
Medications:
Generic Name Dose Route Start Last Admin
Trade Name Freq PRN Reason Stop Dose Admin
Acetaminophen 650 mg 03/18/25 15:43
Acetaminophen 325 Mg Tablet PO 04/15/25 15:42
Q4HPRN PRN
mild pain/MCGHEE/temp> 100F
Calcium Carbonate 200 mg 03/18/25 15:43
Calcium Antacid 200 Mg (Calcium Carbonate 500 Mg) Chew Tablet PO 04/15/25 15:42
Q8HPRN PRN
gerd
Calcium Carbonate 500 mg 03/19/25 08:00 03/21/25 08:33
Calcium Carbonate 500 Mg Tablet PO 04/16/25 07:59 500 mg
DAILY SOFIA Administration
Carbidopa/Levodopa 1 tablet 03/18/25 18:00 03/21/25 08:32
Carbidopa (25 Mg)/Levodopa (100 Mg) Regular Release Tablet PO 04/15/25 17:59 1 tablet
QID SOFIA Administration
Carbidopa/Levodopa 1 tablet 03/19/25 00:00 03/21/25 00:25
Carbidopa (50 Mg)/Levodopa (200 Mg) Extended Release Tablet PO 04/16/25 00:00 1 tablet
DAILY@0000 SOFIA Administration
Cholecalciferol 50 mcg 03/19/25 08:00 03/21/25 08:33
Cholecalciferol (Vitamin D3) 50 Mcg Tablet (2,000 Units) PO 04/16/25 07:59 50 mcg
DAILY SOFIA Administration
Cyanocobalamin 1,000 mcg 03/19/25 08:00 03/21/25 08:33
Cyanocobalamin (Vitamin B-12) 500 Mcg Tablet PO 04/16/25 07:59 1,000 mcg
DAILY SOFIA Administration
Cyclobenzaprine HCl 7.5 mg 03/18/25 22:00 03/20/25 21:15
Cyclobenzaprine 10 Mg Tablet PO 04/15/25 21:59 7.5 mg
HS SOFIA Administration
Cyclobenzaprine HCl 7.5 mg 03/18/25 15:59
Cyclobenzaprine 10 Mg Tablet PO 04/15/25 15:58
TIDPRN PRN
spasms
Dabigatran 150 mg 03/18/25 20:00 03/21/25 08:32
Dabigatran Etexilate (Pradaxa) 150 Mg Capsule PO 04/15/25 19:59 150 mg
BID SOFIA Administration
Dofetilide 250 mcg 03/18/25 22:00 03/21/25 08:32
Dofetilide 250 Mcg Capsule PO 04/15/25 21:59 250 mcg
BID SOFIA Administration
Isosorbide Mononitrate 60 mg 03/19/25 08:00 03/21/25 08:34
Isosorbide Mononitrate 60 Mg Extended Release Tablet PO 04/16/25 07:59 Not Given
DAILY SOFIA
Levetiracetam 1,000 mg 03/19/25 12:23 03/21/25 08:33
Levetiracetam 500 Mg Regular Release Tablet PO 04/15/25 19:59 1,000 mg
BID SOFIA Administration
Levothyroxine Sodium 100 mcg 03/19/25 06:00 03/21/25 05:17
Levothyroxine 100 Mcg Tablet PO 04/16/25 05:59 100 mcg
DAILY @ 0600 SOFIA Administration
Magnesium Oxide 400 mg 03/19/25 08:00 03/21/25 08:33
Magnesium Oxide 400 Mg Tablet PO 04/16/25 07:59 400 mg
DAILY SOFIA Administration
Metoprolol Succinate 50 mg 03/18/25 22:00 03/20/25 21:16
Metoprolol 50 Mg Extended Release Tablet PO 04/15/25 21:59 50 mg
HS SOFIA Administration
Metoprolol Succinate 100 mg 03/19/25 08:00 03/21/25 08:34
Metoprolol 100 Mg Extended Release Tablet PO 04/16/25 07:59 Not Given
DAILY SOFIA
Nifedipine 30 mg 03/18/25 18:00 03/20/25 18:26
Nifedipine 30 Mg Extended Release Tablet PO 04/15/25 17:59 30 mg
QPM SOFIA Administration
Ondansetron HCl 4 mg 03/18/25 15:43
Ondansetron 4 Mg Tablet PO 04/15/25 15:42
Q8HPRN PRN
nausea/vomiting
Pantoprazole Sodium 20 mg 03/18/25 20:00 03/21/25 08:33
Pantoprazole 20 Mg Delayed Release Tablet PO 04/15/25 19:59 20 mg
BID SOFIA Administration
Senna/Docusate Sodium 1 tablet 03/18/25 20:00 03/21/25 08:33
Docusate W/Senna (Lyly-Colace) Tablet PO 04/15/25 19:59 1 tablet
BID SOFIA Administration
Sodium Chloride 1 gram 03/18/25 20:00 03/21/25 08:33
Sodium Chloride 1 Gram Tablet PO 04/15/25 19:59 1 gram
BID SOFIA Administration
Ursodiol 300 mg 03/19/25 08:00 03/21/25 08:33
Ursodiol 300 Mg Capsule PO 04/16/25 07:59 300 mg
DAILY SOFIA Administration
Ursodiol 600 mg 03/18/25 22:00 03/20/25 21:17
Ursodiol 300 Mg Capsule PO 04/15/25 21:59 600 mg
HS SOFIA Administration
Valsartan 80 mg 03/19/25 08:00 03/21/25 08:31
Valsartan 80 Mg Tablet PO 04/16/25 07:59 Not Given
DAILY SOFIA
[2025-03-21] MEDS: DIOVAN PO (08:31)
[2025-03-21] MEDS: SINEMET 25-100 1 TABLET PO ×2 (08:32→13:15)
[2025-03-21] MEDS: TIKOSYN 250 MCG PO (08:32)
[2025-03-21] MEDS: PRADAXA 150 MG PO (08:32)
[2025-03-21] MEDS: MAGNESIUM OXIDE 400 MG PO (08:33)
[2025-03-21] MEDS: VITAMIN B-12 1000 MCG PO (08:33)
[2025-03-21] MEDS: PROTONIX 20 MG PO (08:33)
[2025-03-21] MEDS: ACTIGALL 300 MG PO (08:33)
[2025-03-21] MEDS: OSCAL CAL 500 500 MG PO (08:33)
[2025-03-21] MEDS: VITAMIN D3 (cholecalciferol) 50 MCG PO (08:33)
[2025-03-21] MEDS: SENOKOT-S 1 TABLET PO (08:33)
[2025-03-21] MEDS: KEPPRA 1000 MG PO (08:33)
[2025-03-21] MEDS: SODIUM CHLORIDE 1 GRAM PO (08:33)
[2025-03-21] MEDS: TOPROL XL PO (08:34)
[2025-03-21] MEDS: IMDUR (EXTENDED RELEASE) PO (08:34)
[2025-03-21 08:41] VITALS: BP 96/41
[2025-03-21 09:52] VITALS: BP 114/69; BP_SYST 97; PULSE 70
[2025-03-21 09:54] VITALS: BP 114/69; BP 135/74; PULSE 70; PULSE 72; O2SAT 97
[2025-03-21 11:16] VITALS: BP 113/67
--- NOTE | 2025-03-21 14:02 | W.DS.TRANS ---
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
-
Discharge Instructions:
Discharge Diagnosis/Procedures Seizure
Diet Regular
Instructions:
Stand-Alone Forms:
Changes to Home Medications: Yes
Discharge Medications:
DC Medications w/original date entered in [employer]
ursodiol 300 mg capsule 600 mg PO HS Gastrointestinal Issue 01/23/17
isosorbide mononitrate 60 mg tablet,extended release 24 hr 60 mg PO DAILY Heart Disease/Condition 05/18/22
cholecalciferol (vitamin D3) 50 mcg (2,000 unit) capsule (Vitamin D3) 50 mcg PO DAILY Supplement 06/21/23
calcium carbonate 500 mg PO DAILY Supplement 12/07/23
pantoprazole 20 mg tablet,delayed release (Protonix) 20 mg PO BID Gastrointestinal Issue 02/09/24
dofetilide 250 mcg capsule 250 mcg PO BID Arrhythmia 02/16/24
valsartan 80 mg tablet 80 mg PO DAILY Blood Pressure 06/29/24
carbidopa 25 mg-levodopa 100 mg tablet (Sinemet) 1 tab PO QID parkinson's disease 11/08/24
acetaminophen 325 mg tablet 650 mg PO Q4HPRN PRN mild pain/MCGHEE/temp> 100F 11/18/24
nifedipine 30 mg tablet,extended release 24 hr 30 mg PO QPM Blood Pressure 11/18/24
carbidopa ER 50 mg-levodopa 200 mg tablet,extended release 1 tab PO DAILY@0000 parkinson's disease 02/13/25
clonidine HCl 0.1 mg tablet 0.05 mg PO Q6HPRN PRN SBP>160 02/13/25
cyanocobalamin (vitamin B-12) 1,000 mcg tablet (Vitamin B-12) 1,000 mcg PO DAILY Supplement 02/13/25
ursodiol 300 mg capsule 300 mg PO DAILY Gastrointestinal Issue 02/13/25
atorvastatin 80 mg tablet 80 mg PO HS cholesterol 03/09/25
bisacodyl 10 mg rectal suppository (Dulcolax (bisacodyl)) 10 mg ME DAILYPRN PRN if no bm aftr mom give on day 5 03/09/25
calcium carbonate (Tums) 200 mg PO Q8HPRN PRN gerd 03/09/25
cyclobenzaprine 5 mg tablet 7.5 mg PO HS spasms 03/09/25
cyclobenzaprine 5 mg tablet 7.5 mg PO TIDPRN PRN spasms 03/09/25
dabigatran etexilate 150 mg capsule (Pradaxa) 150 mg PO BID a-fib 03/09/25
levothyroxine 100 mcg tablet 100 mcg PO DAILY hypothyroidism 03/09/25
magnesium hydroxide 400 mg/5 mL oral suspension (Milk of Magnesia) 2,400 mg PO DAILYPRN PRN if no bm by 3rd day give on day 4 03/09/25
sennosides 8.6 mg-docusate sodium 50 mg tablet (Senna Plus) 1 tab PO BID Constipation 03/09/25
sodium phosphates 19 gram-7 gram/118 mL enema (Fleet Enema) 118 ml ME DAILYPRN PRN if no bm aftr dulcolax give on day 6 03/09/25
metoprolol succinate 100 mg tablet,extended release 24 hr 100 mg PO DAILY #30 tabs 03/11/25
metoprolol succinate 50 mg tablet,extended release 24 hr 50 mg PO HS #30 tabs 03/11/25
Magnesium Biglycinate 400 mg PO DAILY 03/18/25
ondansetron HCl 4 mg tablet 4 mg PO Q8HPRN PRN nausea/vomiting 03/18/25
sodium chloride 1,000 mg soluble tablet 1,000 mg PO BID Supplement 03/18/25
levetiracetam 500 mg tablet 1,000 mg (2 x 500 mg) PO BID #60 tabs 03/21/25
Home Medication Changes
KEPPRA STARTED
Pending Results: No
--- NOTE | 2025-03-21 14:18 | CM ---
indicated patient ready for discharge.
Lulu offered bed at [facility] on 3 rd floor.
Family agreed with [facility] .
Called [place] [id number] spoke with Pavithra auth # [id number] from 03/21/25 to 03/25/25 [facility] call [phone] .
[facility] aware of above .
Ambulance auth with [facility] is [id number] . Pavithra informed that a copay would be $240.
Informed [facility] ambulance set up and copay would be $240.00 Linh said she as in agreement with copay and would pay when billed.
[facility]
report [phone]
fax [phone]
PLAN To [facility] via ambulance
[2025-03-21 15:27] VITALS: BP 144/46
== END 2025-03-21 17:50 ==
LOC: 4 EAST ACU 14:29
PROVIDERS: Clinical Nurse Specialist Family Health; Nurse Practitioner; ADMITTING PHYSICIAN Hospitalist; ATTENDING PHYSICIAN Internal Medicine; CONSULT PHYSICIAN Psychiatry & Neurology Neurology; EMERGENCY PHYSICIAN Student in an Organized Health Care Education/Training Program; FAMILY PHYSICIAN Family Medicine
DX: R56.9 Unspecified convulsions (principal); D63.1 Anemia in chronic kidney disease; I49.5 Sick sinus syndrome; N18.9 Chronic kidney disease, unspecified; I13.10 Hypertensive heart and chronic kidney disease without heart failure, with stage 1 through stage 4 chronic kidney disease, or unspecified chronic kidney disease; G20.A1 Parkinson's disease without dyskinesia, without mention of fluctuations; G25.81 Restless legs syndrome; N32.81 Overactive bladder; Z79.01 Long term (current) use of anticoagulants; Z79.890 Hormone replacement therapy; Z79.899 Other long term (current) drug therapy; I48.19 Other persistent atrial fibrillation; E78.5 Hyperlipidemia, unspecified; E03.9 Hypothyroidism, unspecified; K74.3 Primary biliary cirrhosis
CPT/HCPCS: 51701; 70450; 70553; 80053; 80061; 81003; 81015; 82140; 82962; 83735; 85025; 87070; 87086; 93005; 95816; 96361; 96374; 96375; 97112; 97163; 97167; 97530; 97535; 99285; A9575; G0378

== ENCOUNTER 2025-03-22 20:49 | Inpatient (IN) | payer OTHER, SELFPAY ==
[2025-03-22] VITALS (16 sets, daily range): BP systolic 95–210; BP diastolic 36–69; BMI 18.4; BMI 17.7
[2025-03-22] MEDS: ATIVAN 2 MG IV (17:28)
[2025-03-22 17:38] LABS: Urine Character Slightly Cloudy (Clear)
--- NOTE | 2025-03-22 17:38 | EDRN ---
the pt started to seize, this RN notified Dr. Mendoza who came to the pts bedside, the pt was placed on non rebreather 15L due to the pts Sp02 dipping to 88%, Lorazepam IV was administered per Dr. Mendoza and before Lorazepam was administered the pts
seizure broke, Lorazepam still administered per the provider Dr. Mendoza, HR 70, Sp02 100% on 6L NC, blood pressure 178/44 (74), the pts family is currently at the pts bedside
[2025-03-22 17:42] LABS: Hematocrit 30.6 % (37.0-47.0); Hemoglobin 9.8 g/dL (12.0-16.0); Mean Corp Hgb Conc. 32.0 g/dL (33.0-37.0); Mean Corpuscular Volume 92.2 fL (81.0-99.0); Platelet Count 288 10^3/uL (130-400); Red Cell Dist. Width 14.5 % (11.5-14.5)
--- NOTE | 2025-03-22 17:44 | ED.GENMED ---
Addendum entered and electronically signed by Laura Mendoza MD 03/22/25 20:30:
Of note patient's troponin was elevated. Patient without any complaints of chest pain or shortness of breath per family. EKG with no ST elevation. Given patient is asymptomatic will obtain delta troponin to assess next steps.
Original Note:
History of Present Illness
General
Chief Complaint: Seizure
Time Seen by Provider: 03/22/25 17:39
History of Present Illness
History of Present Illness:
Patient is a 84-year-old woman with history of Parkinson's, chronic hyponatremia, atrial fibrillation on Pradaxa, hypertension, new onset seizure with recent admission for UTI and new onset seizure on Keppra presenting to the emergency department
for seizure. Per chart review patient was just discharged yesterday after she was admitted for new onset seizure likely related to stroke/UTI. Per patient's family ember she has not missed any doses of her Keppra. This morning at [place] she did
have 2 generalized tonic-clonic seizures that broke on its own. Patient came to the emergency department as she was not back to her baseline. Per family she did state hide but was very sleepy. They do state that she was having vague abdominal
pain earlier today. No fevers. No rash. No falls that they are aware of. They do state that she has been hypertensive. Patient is a DNR/DNI. She has been under a lot of stress lately. Upon arrival to the emergency department patient with
another generalized tonic-clonic seizure that broke on its own. Patient to become hypoxic and requiring nonrebreather.
Past History
Past History
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
ED Past Surgical History: Cardiac (Pacemaker, PTCI) and Other (Mastectomy L, renal artery PTCI)
Social History
Tobacco: Former smoker
Alcohol: Occasional
Drug: None
Personal: Other
Living: alone
Employment: Retired
Family History
Family History: Other (Reviewed and noncontributory)
Phy Exam
Physical Exam
Physical Exam:
GENERAL: Postictal
HEENT: normocephalic, extraocular movements intact, dry oral mucosa
NECK: normal inspection
RESPIRATORY: no respiratory distress, clear to auscultation bilaterally
CARDIOVASCULAR: regular rate and rhythm
ABDOMEN/: soft, non-distended, non-tender to palpation, no rebound or guarding
EXTREMITIES: non-tender, no edema/swelling
NEUROLOGIC: Postictal
SKIN: warm
Course
Orders/Labs/Results
Orders:
Orders
03/22/25 16:47
EKG [Electrocardiogram (*1)] Urgent
Reason for Study: Other
Other Reason for Exam: Seizure
03/22/25 16:48
EKG- Treatment ONCE
03/22/25 17:06
Complete Blood Count/With Diff Urgent
Comprehensive Metabolic Panel Urgent
Free T4 Urgent
Keppra (Levetiracetam) [S] Urgent
Lactic Acid Urgent
Magnesium Urgent
TSH Reflex To Free T4 Urgent
Troponin I Urgent
Urinalysis Reflex To Culture Urgent
Date Specimen was Collected: 03/22/25
Time Specimen was Collected: 16:41
Urine Microscopic Reflex Cult Urgent
Urine Culture Urgent
[facility] Source: U
Specimen Description:
Date Specimen was Collected: 03/22/25
Time Specimen was Collected: 16:41
03/22/25 17:28
Lorazepam [Ativan] 2 mg .ROUTE .STK-MED ONE
Lorazepam [Ativan] 2 mg IV NOW STA
03/22/25 17:39
CT Head W/o Iv Contrast Urgent
Comment:
Reason For Exam: seizure
CR Chest - 2 Views Urgent
Comment:
Reason For Exam: seizure
03/22/25 17:43
Levetiracetam Injectable [Keppra] 1,000 mg IV NOW STA
03/22/25 17:44
CT Abd/pelvis Wo Iv Cont Urgent
Comment: dye allergy-modified per provider
Reason For Exam: abdominal pain
03/22/25 17:50
0.9% Sodium Chloride 1000 ml [Nss] 1,000 ml IV BOLUS
03/22/25 17:55
CefTRIAXone [Rocephin] 1,000 mg IV NOW STA
03/22/25 18:09
Blood Culture Q30M
[facility] Source: Blood/Venous
Specimen Description:
03/22/25 18:19
EKG- Treatment ONCE
03/22/25 18:45
Blood Culture Q30M
[facility] Source: Blood/Venous
Specimen Description:
03/22/25 20:00
Electrocardiogram (*1) Urgent
Reason for Study: Other
Other Reason for Exam: troponin elevated
Troponin I Urgent
Abnormal Lab Results
03/22/25
17:06
WBC 23.5 H 10^3/uL
(4.8-10.8)
RBC 3.32 L 10^6/uL
(4.20-5.40)
Hgb 9.8 L D g/dL
(12.0-16.0)
Hct 30.6 L %
(37.0-47.0)
MCHC 32.0 L g/dL
(33.0-37.0)
MPV 11.7 H fL
(7.4-10.4)
Abs Immat Gran (auto) 0.1 H 10^3/uL
(0-0.05)
Absolute Neuts (auto) 20.7 H 10^3/uL
(1.4-6.5)
Absolute Lymphs (auto) 1.0 L 10^3/uL
(1.2-3.4)
Absolute Monos (auto) 1.7 H 10^3/uL
(0.1-0.6)
Immature Gran % 0.6 H %
(0-0.5)
Neutrophils % 88.1 H %
(42.2-75.2)
Lymphocytes % 4.0 L %
(20.5-51.1)
Sodium 134 L mmol/L
(135-145)
Glucose 140 H mg/dl
(70-99)
Lactic Acid 2.5 H mmol/L
(0.7-2.0)
Troponin I 0.068 H* ng/ml
TSH (Reflex) 0.11 L uIU/ml
(0.47-4.68)
Urine Ketones 2+ A
(Negative)
Ur Occult Blood Reflex 2+ A
(Negative)
Leukocyte Esterase Rfl 3+ A
(Negative)
Urine WBC (Reflex) 30-40 A /HPF
(0-5)
Urine Bacteria (Reflex) Few A
(Negative)
Urine Albumin (Reflex) 2+ A
(Neg - Trace)
03/22/25 17:06
03/22/25 17:06
Vital Signs
Initial and Last Documented VS:
Initial Vital Signs
Pulse Ox
96
03/22/25 16:38
Last Documented Vital Signs
Temp Pulse Resp BP Pulse Ox
98.6 F 72 20 129/61 100
03/22/25 17:25 03/22/25 18:49 03/22/25 18:49 03/22/25 18:49 03/22/25 18:49
MDM/Problems Addressed
Differential Diagnosis Includes:
Patient is 84-year-old woman recently admitted for new onset seizures likely from stroke/UTI presenting to the emergency department with further stroke without returning to baseline. On arrival vital signs were notable for hypertension. Patient
did have another generalized tonic-clonic seizure shortly after being in the emergency department. It did break on its own but did require nonrebreather. 2 of Ativan given after the seizure. Also given 1 g Keppra load to prevent further seizures.
Patient is a DNR/DNI so we will be careful with antiepileptics. Given patient's abdominal pain concern for infection such as UTI, abdomen does not show any signs of surgical abdomen. Breakthrough seizure could also be secondary to stress or
stroke. Will obtain basic blood work as well as CT scan of the head and abdomen. Will check urine and chest x-ray for infectious etiology. I did discuss with Dr. Pisano regarding second line antiepileptic. She is in agreement with the Keppra
load and to give her a callback if she has another seizure.
After the seizure patient's blood pressure did slowly decrease currently now in the 180s.
*Pulse Oximetry
SaO2: 97
Oxygen Mode of Delivery: Room air
Patient hypoxic: yes
*Critical Care Note
Total Time (30-74mins, 75-104mins- exclusive of procedures): 41
comment:
Critical care statement: A total of 41 minutes of critical care time was provided for this patient. This includes management of unstable vital signs, evaluation of the patient at bedside, reviewing the patient's pertinent medical records, ordering
and reviewing studies, arranging urgent treatment with development of a management plan, evaluating patient's response to treatment, frequent reassessment, and discussion with consultants. This time was separate from time utilized to perform the
aforementioned documented procedures.
Update Note
Update Note:
Urine is grossly infected. Per chart review patient last grew E. coli that is pansensitive. Will give ceftriaxone.
Labs notable for leukocytosis. Lactate is elevated. CT scan of the head per my interpretation no acute normality. CT abdomen consistent with cystitis. Patient remains postictal but is moving all extremities now. Discussed with hospitalist who
accepted patient to their service
ED Attending Note
-
Portions of this chart may have been created with voice recognition software.� Occasional wrong word or��sound alike� substitutions may have occurred due to the inherent limitations of voice recognition software.
Discharge Plan
Departure
Patient Disposition: Admit
Date of Disposition: 03/22/25
Time of Disposition: 19:11
Presentation/result/management discussed w/ accepting MD/DO: Hospitalist
Discharge Problem:
Seizure
Prescriptions:
No Action
ursodiol 300 MG capsule
600 mg PO HS
isosorbide mononitrate 60 mg tablet extended release 24 hr
60 mg PO DAILY
cholecalciferol (vitamin D3) [Vitamin D3] 50 mcg (2,000 unit) Capsule
50 mcg PO DAILY
calcium carbonate 500 mg calcium (1,250 mg) Tablet
500 mg PO DAILY
pantoprazole [Protonix] 20 mg Tablet,Delayed Release (Dr/Ec)
20 mg PO BID
dofetilide 250 mcg capsule
250 mcg PO BID
valsartan 80 mg Tablet
80 mg PO DAILY
carbidopa-levodopa [Sinemet] 25-100 mg tablet
1 tab PO QID
nifedipine 30 mg Tablet Extended Release 24hr
30 mg PO QPM
acetaminophen 325 mg tablet
650 mg PO Q4HPRN PRN (Reason: mild pain/MCGHEE/temp> 100F)
ursodiol 300 mg Capsule
300 mg PO DAILY
clonidine HCl 0.1 mg tablet
0.05 mg PO Q6HPRN PRN (Reason: SBP>160)
carbidopa-levodopa 50-200 mg tablet extended release
1 tab PO DAILY@0000
cyanocobalamin (vitamin B-12) [Vitamin B-12] 1,000 mcg tablet
1,000 mcg PO DAILY
magnesium hydroxide [Milk of Magnesia] 400 mg/5 mL Suspension
2,400 mg PO DAILYPRN PRN (Reason: if no bm by 3rd day give on day 4)
bisacodyl [Dulcolax (bisacodyl)] 10 mg Suppository
10 mg NV DAILYPRN PRN (Reason: if no bm aftr mom give on day 5)
calcium carbonate [Tums] 200 mg calcium (500 mg) Tablet,Chewable
200 mg PO Q8HPRN PRN (Reason: gerd)
Fleet Enema 19-7 gram/118 mL Enema
118 ml NV DAILYPRN PRN (Reason: if no bm aftr dulcolax give on day 6)
cyclobenzaprine 5 mg Tablet
7.5 mg PO HS
cyclobenzaprine 5 mg Tablet
7.5 mg PO TIDPRN PRN (Reason: spasms)
atorvastatin 80 mg tablet
80 mg PO HS
sennosides-docusate sodium [Senna Plus] 8.6-50 mg tablet
1 tab PO BID
levothyroxine 100 mcg tablet
100 mcg PO DAILY
dabigatran etexilate [Pradaxa] 150 MG capsule
150 mg PO BID
metoprolol succinate 50 mg Tablet Extended Release 24 Hr
50 mg PO HS Qty: 30 0RF
metoprolol succinate 100 mg Tablet Extended Release 24 Hr
100 mg PO DAILY Qty: 30 0RF
ondansetron HCl 4 mg Tablet
4 mg PO Q8HPRN PRN (Reason: nausea/vomiting)
sodium chloride 1,000 mg Tablet,Soluble
1,000 mg PO BID
Magnesium Biglycinate 100 mg tablet
400 mg PO DAILY
levetiracetam 500 mg Tablet
1,000 mg PO BID Qty: 60 0RF
Referrals:
Shellie Snell DO [Family Provider, General]
Interventions
Interventions:
*Risk Screen - Suicide Last Done: 03/22/25 16:48
*General Assessment Last Done: 03/22/25 16:48
*Neglect/Abuse Screening Last Done: 03/22/25 16:48
*ED- Fall Risk Assessment Last Done: 03/22/25 16:48
*ED COVID-19 Vaccine History Last Done: 03/22/25 16:48
*ED Influenza Vaccine History Last Done: 03/22/25 16:48
ED- Cardiac Assessment Last Done: 03/22/25 16:38
ED- Neurological Assessment Last Done: 03/22/25 16:38
ED- Pulmonary Assessment Last Done: 03/22/25 16:38
Discharge Date and Time
Print Language: MALAY
[2025-03-22 17:50] LABS: Urine Red Blood Cell 0-2 /HPF (0-2); Urine White Cell 30-40 /HPF (0-5)
[2025-03-22] MEDS: KEPPRA 1000 MG IV (17:51)
[2025-03-22] MEDS: NSS 1000 IV (17:52)
[2025-03-22 18:04] LABS: Nucleated Red Blood Cells % 0 %
--- NOTE | 2025-03-22 18:13 | EDRN ---
pt was placed on RA and Sp02 remains at 100%, no s/s of distress
[2025-03-22 18:14] LABS: ALT (SGPT) < 10 U/L (0-35); AST (SGOT) 18 U/L (14-36); Albumin 3.7 g/dl (3.5-5.0); Alkaline Phosphatase 116 U/L (38-126); Blood Urea Nitrogen 16 mg/dl (7-17); Calcium 9.6 mg/dl (8.4-10.2); Carbon Dioxide 27 mmol/L (22-30); Chloride 101 mmol/L (98-107); Estimated Creatinine Clearance 45 ml/min; Glucose 140 mg/dl (70-99); Magnesium 2.0 mg/dl (1.6-2.3); Potassium 4.6 mmol/L (3.5-5.1); Sodium 134 mmol/L (135-145); Total Protein 6.7 g/dl (6.3-8.2); eGFR > 60.00
[2025-03-22 18:18] LABS: Troponin I 0.068 ng/ml
--- NOTE | 2025-03-22 18:20 | EDRN ---
this RN noticed that the pts p02 was 90% on RA, this RN placed the pt on 4L NC Sp02 100%, Dr. Mendoza notified
[2025-03-22] MEDS: ROCEPHIN 1000 MG IV (18:46)
--- NOTE | 2025-03-22 19:53 | HPS.HSE ---
Addendum entered and electronically signed by Cande Delatorre DO 03/22/25 22:00:
The patient was seen and examined. I have discussed the patient at length with Tierney, and agree with her history and physical and assessment and plan of care as per below. She is not 84-year-old woman who was recently discharged from this hospital
on Monday after being admitted for new onset of seizure and urinary tract infection. Per the patient's family she has been having significant decline over the past several weeks. She presents back to the emergency department secondary to several
generalized tonic-clonic seizures. She had an additional seizure in the emergency department and was given 2 mg of IV Ativan and 1000 mg of IV Keppra. At this time she is sleeping and somnolent secondary to the Ativan. The family notes that she
has had improved appetite since her recent hospitalization. Her mental status has been declining over the past several weeks. She also has had urinary retention. WBC 23.5, hemoglobin 9.8, In the emergency department she received IV Ativan 2 mg,
1000 g of IV Keppra, 1 L of IV fluids, and IV Rocephin. The family states that she is a DNR DNI at this time.
Physical exam
HEENT pale skin and conjunctiva
Cardiovascular 2 out of 6 to 3 out of 6 systolic ejection murmur
Lungs are clear to auscultation bilaterally no wheezes rales rhonchi,
Abdomen is soft nontender normoactive bowel sounds,
Neurologic -somnolent, sedated after the Ativan, no focal neurologic deficit, restless legs which apparently are baseline for the patient
Labs are reviewed
Imaging reviewed
Assessment and plan of care
#Sepsis with evidence for end-organ damage including lactic acidosis, elevated troponin , likely secondary to UTI, with new onset urinary retention
-IMU admission, for close monitoring of neurologic status
-Gentle IV hydration after initial bolus for sepsis
- Repeat lactic acid level
- Serial cardiac biomarkers
- Recent E. coli UTI treated sensitive to Rocephin
- Continue IV Rocephin
- Check blood cultures
# Breakthrough seizures, recent left frontal lobe MRI March 20, 2025
- Neurology consultation is appreciated
- Close monitoring of neurologic status
- Status post IV Ativan and IV Keppra
- Continue Keppra IV twice a day
- Notify neurology if the patient has an additional seizure tonight
- Seizure precautions
# Parkinson's disease
- Sinemet
# Urinary retention
-Bladder scans with monitoring/straight catheterization and consider addition of Flomax pending results
- Monitor intake and output
Additional assessment and plan of care as per below
Patient is confirmed to be DNR
Original Note:
Family Physician
-
Family Physician: Shellie Snell DO
Chief Complaint
-
Seizure, fatigue
History of Present Illness
84-year-old female from [facility] rehab with reported to generalized tonic-clonic seizure this a.m. at 830 then again at 315 that broke on their own however she was not back to her baseline and was tired. Daughter reported it took her approximately
3 hours to come back to self and be able to say her name. She was sent to ER for evaluation where she had another generalized tonic-clonic seizure she did become hypoxic and required nonrebreather during this episode. She was given IV Keppra 1000
mg loading dose and neurology was made aware. Her daughter states at bedside yesterday 03/21/2025 she had urinary retention required straight cath before being sent back to [facility]. Patient is currently sedated post IV Ativan and Keppra loading
dose in ER
The patient had a recent admission 03/18 - 03/21/2025 secondary to seizure with biting right side of her tongue. She had MRI showing infarct left frontal lobe. She was placed on Keppra 1000 mg p.o. twice daily on discharge. She also had recent
admission also with TME, UTI with cultures growing out E. coli resistant to cefazolin Unasyn and Bactrim. She finished Cipro on 03/17/2025.
She has past medical history Recent Acute infarcts Left frontal lobe MRI March 20, 2025, new onset seizures 03/18/2025, urinary retention 03/21/2025, Paroxysmal A-fib status post cardioversion x 4, HTN, HLD, CAD status post PCI with drug-eluting
stents to RCA times , 09/15/2013, CAD status post left CEA 2016 right CEA 2016, PVD, pacemaker insertion 2014 replacement 02/16/2024 bradycardia Medtronic MRI conditional mild aortic stenosis, mild TR, COPD per records, bilateral pleural effusions
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
hand dysfunction, right retinal artery occlusion September 2018 with residual right eye visual loss, restless leg syndrome, mild scoliosis, cervical DDD with radiculopathy, hypothyroidism, left-sided breast cancer status post left mastectomy with sentinel
node biopsy 01/15/2013, squamous cell CA status post multiple excisions, anemia of chronic disease, osteopenia, remote history of tobacco abuse, COVID-19 pneumonia 04/17/2022 requiring supplemental oxygen
Medical History
Past Medical History
Past Medical History: Reports Other
Additional Past Medical History:
1. Paroxysmal atrial fibrillation, status post cardioversion x4; pharmacological therapy with Metoprolol Succinate and Propranolol, oral anticoagulation with Pradaxa.
2. Hypertension.
3. Hyperlipidemia.
4. Coronary artery disease, status post PCI with drug eluting stents to RCA x4 2013.
5. Carotid artery stenosis, status post left carotid endarterectomy, 2015, and right carotid endarterectomy 2016.
6. Peripheral vascular disease.
7. Status post pacemaker insertion 2013.
8. Mild aortic stenosis.
9. Mild tricuspid regurgitation.
10. COPD per records.
11. Bilateral pleural effusion, 05/2022, status post thoracentesis.
12. Renal artery stenosis, status post multiple bilateral renal stents.
13. GERD.
14. Small hiatal hernia.
15. Colon polyps.
16. Primary biliary cirrhosis with mildly elevated AST.
17. 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
18. Right retinal artery occlusion, 09/2018, with residual right eye visual loss.
19. Restless leg syndrome.
20. Mild scoliosis.
21. Cervical degenerative disc disease with radiculopathy.
22. Hypothyroidism.
23. Left sided breast cancer, status post left mastectomy with sentinel node biopsy 12/2012.
24. Squamous cell carcinoma, status post multiple excisions.
25. Anemia of chronic disease.
26. Osteopenia.
27. COVID 19 pneumonia, 03/2022, requiring previous supplemental oxygen.
28. Remote history of tobacco abuse.
29. 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
30 E. coli UTI with hallucinations 03/09/2024
31.Recent Acute infarcts Left frontal lobe MRI March 20, 2025
32. New onset seizures 03/18/2025
Past Surgical History: Reports Other
Additional Past Surgical History:
1. Cardioversion x4.
2. PCI with drug eluting stents to RCA x4.
3. Cardiac catheterization.
4. Pacemaker insertion. replacement 02/16/2024 bradycardia Medtronic MRI conditional
5. Thoracentesis.
6. Left carotid endarterectomy.
7. Right carotid endarterectomy.
8. Left mastectomy with sentinel node biopsy.
9. Temporal artery biospy.
10. Appendectomy.
11. Bilateral tubal ligation.
12. Multiple bilateral renal stents.
13. Multiple squamous cell carcinoma excisions.
14. Bilateral cataract extraction.
15. Colonoscopy x3.
16. Endoscopy.
Social History
Tobacco: Former Smoker (She is a former up to 1 and 1/2 pack per day cigarette smoker who quit tobacco at 30 years old. )
Alcohol: Other (She drinks 1-2 glasses of wine most evenings with dinner. )
Personal: Single
Living: Alone (She lives in a 2 story home with a first floor main setup. )
Employment: Retired
Family History
Family History: Not pertinent
Allergies / Home Medications
Allergies reflects when Allergies were last updated in [facility].
Home Medications with original date entered in [facility]
Allergy/Medication List:
Allergies
Allergy/AdvReac Type Severity Reaction Status Date / Time
adhesive Allergy Redness, Verified 03/22/25 16:41
rash
amiodarone Allergy tremors Verified 03/22/25 16:41
diltiazem Allergy Rash Verified 03/22/25 16:41
furosemide (From Lasix) Allergy Unknown Verified 03/22/25 16:41
hydralazine (Hydralazine) Allergy RAMSEY, Verified 03/22/25 16:41
Fatigue,
Dizziness
Iodinated Contrast Media Allergy Rash and Verified 03/22/25 16:41
(Iodinated Contrast Media - Warmth
IV Dye)
iodine (Iodine) Allergy rash with Verified 03/22/25 16:41
ivp dye
omeprazole Allergy Nausea Verified 03/22/25 16:41
spironolactone Allergy kidney Verified 03/22/25 16:41
failure-
Hypercalcemia
Home Medications
ursodiol 300 mg capsule 600 mg PO HS Gastrointestinal Issue 01/23/17
isosorbide mononitrate 60 mg tablet,extended release 24 hr 60 mg PO DAILY Heart Disease/Condition 05/18/22
cholecalciferol (vitamin D3) 50 mcg (2,000 unit) capsule (Vitamin D3) 50 mcg PO DAILY Supplement 06/21/23
calcium carbonate 500 mg PO DAILY Supplement 12/07/23
pantoprazole 20 mg tablet,delayed release (Protonix) 20 mg PO BID Gastrointestinal Issue 02/09/24
dofetilide 250 mcg capsule 250 mcg PO BID Arrhythmia 02/16/24
valsartan 80 mg tablet 80 mg PO DAILY Blood Pressure 06/29/24
carbidopa 25 mg-levodopa 100 mg tablet (Sinemet) 1 tab PO QID parkinson's disease 11/08/24
acetaminophen 325 mg tablet 650 mg PO Q4HPRN PRN mild pain/MCGHEE/temp> 100F 11/18/24
nifedipine 30 mg tablet,extended release 24 hr 30 mg PO QPM Blood Pressure 11/18/24
carbidopa ER 50 mg-levodopa 200 mg tablet,extended release 1 tab PO DAILY@0000 parkinson's disease 02/13/25
clonidine HCl 0.1 mg tablet 0.05 mg PO Q6HPRN PRN SBP>160 02/13/25
cyanocobalamin (vitamin B-12) 1,000 mcg tablet (Vitamin B-12) 1,000 mcg PO DAILY Supplement 02/13/25
ursodiol 300 mg capsule 300 mg PO DAILY Gastrointestinal Issue 02/13/25
atorvastatin 80 mg tablet 80 mg PO HS cholesterol 03/09/25
bisacodyl 10 mg rectal suppository (Dulcolax (bisacodyl)) 10 mg MD DAILYPRN PRN if no bm aftr mom give on day 5 03/09/25
calcium carbonate (Tums) 200 mg PO Q8HPRN PRN gerd 03/09/25
cyclobenzaprine 5 mg tablet 7.5 mg PO HS spasms 03/09/25
cyclobenzaprine 5 mg tablet 7.5 mg PO TIDPRN PRN spasms 03/09/25
dabigatran etexilate 150 mg capsule (Pradaxa) 150 mg PO BID a-fib 03/09/25
levothyroxine 100 mcg tablet 100 mcg PO DAILY hypothyroidism 03/09/25
magnesium hydroxide 400 mg/5 mL oral suspension (Milk of Magnesia) 2,400 mg PO DAILYPRN PRN if no bm by 3rd day give on day 4 03/09/25
sennosides 8.6 mg-docusate sodium 50 mg tablet (Senna Plus) 1 tab PO BID Constipation 03/09/25
sodium phosphates 19 gram-7 gram/118 mL enema (Fleet Enema) 118 ml MD DAILYPRN PRN if no bm aftr dulcolax give on day 6 03/09/25
metoprolol succinate 100 mg tablet,extended release 24 hr 100 mg PO DAILY #30 tabs 03/11/25
metoprolol succinate 50 mg tablet,extended release 24 hr 50 mg PO HS #30 tabs 03/11/25
Magnesium Biglycinate 400 mg PO DAILY 03/18/25
ondansetron HCl 4 mg tablet 4 mg PO Q8HPRN PRN nausea/vomiting 03/18/25
sodium chloride 1,000 mg soluble tablet 1,000 mg PO BID Supplement 03/18/25
levetiracetam 500 mg tablet 1,000 mg (2 x 500 mg) PO BID #60 tabs 03/21/25
Review of Systems
-
History Source: Family (Daughters at bedside) and Longterm
A 12 point ROS was completed and negative except as noted: Yes
Constitutional: Denies Fever or Chills
Respiratory: Denies Cough or Trouble Breathing
Cardiac: Denies Chest Pain or Palpitations
Abdomen/GI: Denies Nausea, Vomiting or Diarrhea
: Reports Difficulty Voiding (Recent urinary retention yesterday 03/21/2025 requiring straight cath)
Musculoskeletal: Reports Other (Chronic restless legs); Denies Edema
Skin: Denies Rash
Neurological: Reports Other (Reported tonic-clonic seizures 8:30 AM, 3:15 PM at long-term and tonic-clonic seizure in the ER); Denies Headache or Weakness
Hematologic/Lymphatic: Denies Bleeding or Bruising
Psych: Reports Calm
Physical Exam
Vital Signs
Vital Signs
Temp Pulse Resp BP Pulse Ox
98.6 F 72 20 129/61 100
03/22/25 17:25 03/22/25 18:49 03/22/25 18:49 03/22/25 18:49 03/22/25 18:49
Physical Exam
General: Other (Patient sedated after IV Ativan/Keppra due to seizure is snoring)
HEENT: NormoCephalic, Atraumatic and Oxygen (2 L nasal cannula)
Respiratory: No Wheezes, Rales or Rhonchi
Cardiac: S1/S2 and Other (Paced rhythm on monitor); No Murmur, Rub, Gallop or Peripheral Edema
Breast: Deferred by me
GI: Soft, Non Tender, Non Distended, Normal Bowel Sounds and No Hepatosplenomegaly
Rectal: Deferred by Provider
Genito-urinary: Deferred by me
Musculoskeletal: No Clubbing, No Cyanosis and No Edema
Skin: Warm; No Rash
Neuro: Other (Sedated post IV Ativan and Keppra for seizure); No Facial Droop
Psych: Other (sedated)
Laboratory Results
-
03/22/25 17:06
03/22/25 17:06
Laboratory Results
Lactic Acid 2.5 mmol/L (0.7-2.0) H 03/22/25 17:06
Total Bilirubin 1.0 mg/dl (0.2-1.3) 03/22/25 17:06
AST 18 U/L (14-36) 03/22/25 17:06
ALT < 10 U/L (0-35) 03/22/25 17:06
Alkaline Phosphatase 116 U/L (38-126) 03/22/25 17:06
Troponin I 0.068 ng/ml H* 03/22/25 17:06
Data Reviewed
-
Diagnostic Radiology: Report Reviewed by me
CT Scan: Report Reviewed by me
Lab Data: Labs Reviewed by me
Impression/Plan
-
IMpression/plan:
Admit to IMU
#Sepsis likely secondary to UTI/recent Urinary retention with organ dysfunction
#E. coli UTI treated with Cipro on 03/17/2025
Lactic acid 2.5
WBC 23.5> 9. yesterday 03/21/2025
Repeat UA-WBC 30�40, increased from 11-15 , +3 leukocytes, few bacteria
Daughter reports urinary retention 03/21/2025 requiring straight cath
-Bladder scan with protocol
-Patient given IV NSS 1 L in ER ,continue IV NSS 50 cc x 1 bag
- IV Rocephin 1 g daily
- Follow urine culture
- Blood cultures x 2, CBC, CMP, trend lactic acid
CXR negative
#Recurrent seizures Recent Acute infarcts left frontal lobe MRI March 20, 2025
#Recent new seizure Dx 03/17/2025
-Was on Keppra 1000 mg twice daily has not missed doses since discharge yesterday 03/21/2025
- IV Keppra 1 g loading dose given in ER
-Continue IV Keppra 1 g twice daily
-Consult Neuro Dr. Gage aware
-Notify neuro if recurrent seizure overnight
- Seizure precautions
#Recent Acute infarcts Left frontal lobe MRI March 20, 2025
#Hx right MCA ischemic stroke
#Hx 3 cm left frontal lobe infarct stable, 2 cm right frontal infarct stable, 1.5 cm lacunar infarct involving left caudate left internal capsule stable from prior study 10/18/2023
CT head:No acute intracranial hemorrhage.
Tiny acute infarcts seen in the left frontal lobe lung MRI of March 20, 2025, not discretely appreciated on this study.
Findings again seen compatible with diffuse cortical atrophy with nonspecific white matter changes as described above.
#Troponin elevation likely secondary to brief hypoxia during seizure activity requiring nonrebreather
Troponin 0.068 will follow
EKG Atrial paced 75 bpm, QTc 493 MS chronic T wave inversions anterior leads no change from prior
#HTN- benign/history orthostatic hypotension/labile
BP 208/66> 95/43 > 129/61�self resolved
-Continue metoprolol 100 mg in a.m. continue Lopressor 50 mg at bedtime, nifedipine 30 mg, valsartan with hold parameters
#Renal artery stenosis status post bilateral renal stents
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
-history of pacemaker 02/16/2024 dual-chamber�Medtronic; Model# [id number]; Serial# [id number].MRI CONDITIONAL
#Chronic hyponatremia
NA 134
-Continue sodium chloride 1000 mg twice daily
-Follow BMP
#Parkinson's
-Continue carbidopa levodopa
#HLd
check lipid profile
-cont lipitor 40 mg
#A-fib paroxysmal
-Continue Pradaxa
-continue tikosyn with hold parameters
-- cont metoprolol, nifedipine, with hold parameters
- Follows with [facility] cardiology
#Hypothyroidism
- cont levothyroxine patient took this a.m. 630
#Cad
#Cardiac stent x 4 RCA drug-eluting to 2013
-Continue imdur with hold parameters
-Continue Imdur, statin, Pradaxa, beta-andrez
#Carotid stenosis status post bilateral CEA 2015, 2016
#Chronic cardiac murmur
#Aortic stenosis�mild
#Mild TR
#Anemia of chronic disease
Hgb 9.8 baseline appears around 10
#Primary biliary cirrhosis
#GERD
#Small hiatal hernia
-Continue Pepcid 40 mg twice daily
#Squamous cell carcinoma
#Breast cancer Left mastectomy 2012
# Former smoker
#Overactive bladder
-Continue ursodiol
Other PMH:
#Right leg sciatica
DVT prophylaxis
Continue Pradaxa
DNR per family
[2025-03-22 21:08] LABS: Troponin I 0.059 ng/ml
--- NOTE | 2025-03-22 23:32 | PTCARENOTE ---
pt received from ED with eyes closed, answering to name and oriented x 3. Following commands and answering appropriately. Lethargic. Room air pox 95% resp even and non-labored. A-paced rhythm on telemetry with rates in 70's. Oriented to the room.
Call lopez in reach and instructed on use. Bed in lowest position and bed alarm activated. See fully documented assessment.
[2025-03-23] VITALS (15 sets, daily range): BP systolic 113–168; BP diastolic 37–88; PULSE 70; O2SAT 96; BMI 17.7; BMI 23.7
[2025-03-23] MEDS: LIPITOR PO (00:04)
[2025-03-23] MEDS: ACTIGALL PO (00:04)
[2025-03-23] MEDS: NSS 1000 IV ×2 (00:05→13:08)
[2025-03-23] MEDS: SINEMET 25-100 PO (00:05)
[2025-03-23] MEDS: TOPROL XL PO (00:05)
--- NOTE | 2025-03-23 00:17 | PTCARENOTE ---
attempted to give patient sip of water to test swallowing prior to administering 2200 and 0000 scheduled meds. She is lethargic, answering verbally and nodding appropriately, but keeping her eyes and mouth closed and unable to sip from straw or cup.
Unable to safely administer oral medications. Will re-attempt later.
[2025-03-23 01:05] LABS: Troponin I 0.064 ng/ml
[2025-03-23] MEDS: SINEMET CR 50/200 (EXTENDED RELEASE) PO (04:22)
--- NOTE | 2025-03-23 04:53 | PTCARENOTE ---
patient sleeping but arousing easily. More conversive. Swallow tested again and she is able to drink water through a straw. Has not voided all shift. Attempting to void in bedpan. Vital signs stable; pox 94% on room air. Continuing to monitor
[2025-03-23 05:00] LABS: Hematocrit 24.9 % (37.0-47.0); Hemoglobin 7.9 g/dL (12.0-16.0); Mean Corp Hgb Conc. 31.7 g/dL (33.0-37.0); Mean Corpuscular Volume 92.9 fL (81.0-99.0); Nucleated Red Blood Cells % 0 %; Platelet Count 222 10^3/uL (130-400); Red Cell Dist. Width 14.6 % (11.5-14.5)
[2025-03-23 05:20] LABS: ALT (SGPT) < 10 U/L (0-35); AST (SGOT) 16 U/L (14-36); Albumin 2.9 g/dl (3.5-5.0); Alkaline Phosphatase 91 U/L (38-126); Blood Urea Nitrogen 17 mg/dl (7-17); Calcium 9.1 mg/dl (8.4-10.2); Carbon Dioxide 26 mmol/L (22-30); Chloride 106 mmol/L (98-107); Estimated Creatinine Clearance 44 ml/min; Glucose 81 mg/dl (70-99); Potassium 4.1 mmol/L (3.5-5.1); Sodium 133 mmol/L (135-145); Total Protein 5.8 g/dl (6.3-8.2); eGFR > 60.00
[2025-03-23] MEDS: SYNTHROID 100 MCG PO (06:24)
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
[2025-03-23] MEDS: SODIUM CHLORIDE 1 GRAM PO ×2 (08:19→20:16)
[2025-03-23] MEDS: DIOVAN 80 MG PO (08:19)
[2025-03-23] MEDS: TIKOSYN 250 MCG PO ×2 (08:19→20:15)
[2025-03-23] MEDS: SINEMET 25-100 1 TABLET PO ×4 (08:19→21:51)
[2025-03-23] MEDS: IMDUR (EXTENDED RELEASE) 60 MG PO (08:19)
[2025-03-23] MEDS: SENOKOT-S 1 TABLET PO ×2 (08:19→20:16)
[2025-03-23] MEDS: TOPROL XL 100 MG PO (08:20)
[2025-03-23] MEDS: PROTONIX 20 MG PO ×2 (08:20→20:16)
[2025-03-23] MEDS: VITAMIN D3 (cholecalciferol) 50 MCG PO (08:20)
[2025-03-23] MEDS: OSCAL CAL 500 500 MG PO (08:20)
[2025-03-23] MEDS: ACTIGALL 300 MG PO (08:20)
[2025-03-23] MEDS: PRADAXA 150 MG PO ×2 (08:20→20:14)
[2025-03-23] MEDS: KEPPRA 1000 MG IV ×2 (08:21→20:10)
[2025-03-23] MEDS: VITAMIN B-12 1000 MCG PO (08:21)
--- NOTE | 2025-03-23 11:46 | W.PN.HOSP.TC ---
Today's Communication/Plan
-
IV abx for now
IVF for now
AEDs
neuro recs
seizure precaution
Assessment / Plan
Assessment / Plan
General: awake, had some breakfast earlier today
HEENT: NormoCephalic, Atraumatic
Respiratory: No Wheezes, Rales or Rhonchi
Cardiac: S1/S2 and Other (Paced rhythm on monitor); No Murmur, Rub, Gallop or Peripheral Edema
Breast: Deferred by me
GI: Soft, Non Tender, Non Distended, Normal Bowel Sounds and No Hepatosplenomegaly
Rectal: Deferred by Provider
Genito-urinary: Deferred by me
Musculoskeletal: No Clubbing, No Cyanosis and No Edema
Skin: Warm; No Rash
Neuro: awake but not completely oriented. non focal grossly intact.
Psych:calm
#Severe Sepsis likely secondary to UTI/recent Urinary retention with organ dysfunction
#E. coli UTI treated with Cipro on 03/17/2025
#Lactic acidosis resolved
-Bladder scan with protocol
- continue IV NSS 50 cc x 1 bag
- IV Rocephin 1 g daily
- Follow urine culture
- Blood cultures x 2 in lab,
-CXR negative
#Recurrent seizures Recent Acute infarcts left frontal lobe MRI March 20, 2025
#Recent new seizure Dx 03/17/2025
-Was on Keppra 1000 mg twice daily has not missed doses since discharge 03/21/2025
- IV Keppra 1 g loading dose given in ER
-Continue IV Keppra 1 g twice daily
-Consult Neuro Dr. Gage aware
- Seizure precautions
#Recent Acute infarcts Left frontal lobe MRI March 20, 2025
#Hx right MCA ischemic stroke
#Hx 3 cm left frontal lobe infarct stable, 2 cm right frontal infarct stable, 1.5 cm lacunar infarct involving left caudate left internal capsule stable from prior study 10/18/2023
#Troponin elevation likely secondary to brief hypoxia during seizure activity requiring nonrebreather
Troponin downtrended
#HTN- benign/history orthostatic hypotension/labile
-Continue metoprolol 100 mg in a.m. continue Lopressor 50 mg at bedtime, nifedipine 30 mg, valsartan with hold parameters
#Renal artery stenosis status post bilateral renal stents
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
-history of pacemaker 02/16/2024 dual-chamber�[employer];
#Chronic hyponatremia
-Continue sodium chloride 1000 mg twice daily
-Follow BMP
#Parkinson's
-Continue carbidopa levodopa
#HLd
-cont lipitor 40 mg
#A-fib paroxysmal
-Continue Pradaxa
-continue tikosyn with hold parameters
-cont metoprolol, nifedipine, with hold parameters
- Follows with [facility] cardiology
#Hypothyroidism
- cont levothyroxine patient took this a.m. 630
#Cad
#Cardiac stent x 4 RCA drug-eluting to 2013
-Continue imdur with hold parameters
-Continue Imdur, statin, Pradaxa, beta-andrez
#Carotid stenosis status post bilateral CEA 2015, 2016
#Chronic cardiac murmur
#Aortic stenosis�mild
#Mild TR
#Anemia of chronic disease
Hgb 9.8 baseline appears around 10
#Primary biliary cirrhosis
#GERD
#Small hiatal hernia
-Continue Pepcid 40 mg twice daily
#Squamous cell carcinoma
#Breast cancer Left mastectomy 2012
# Former smoker
#Overactive bladder
-Continue ursodiol
Other PMH:
#Right leg sciatica
DVT prophylaxis
Continue Pradaxa
DNR
d/w with daughter at bedside in details.
PT in am
Anticipated Discharge: > 48 hours
Subjective/Interval History
-
Date of Service: March 23, 2025
states of feeling mild lightheaded
no further events of seizures like activity this morning
Objective Data
-
Labs:
Laboratory Results
03/23/25
04:45
WBC 13.6 H
Hgb 7.9 L
Hct 24.9 L
Plt Count 222 D
Sodium 133 L
Potassium 4.1
Chloride 106
Carbon Dioxide 26
BUN 17
Creatinine 0.7
Glucose 81
Calcium 9.1
Total Bilirubin 0.6
AST 16
ALT < 10
Alkaline Phosphatase 91
Vital Signs:
Vital Signs
Temp Pulse Resp BP Pulse Ox
98.0 F 71 15 168/51 95
03/23/25 07:41 03/23/25 08:20 03/23/25 05:45 03/23/25 08:20 03/23/25 05:45
I&O
03/22/25 03/23/25 03/24/25
06:59 06:59 06:59
Intake Total 600 / 600
Output Total 0 / 0
Balance 600 / 600
Data Reviewed
-
Total Time Spent with Patient (in minutes): 56
[2025-03-23] MEDS: PROCARDIA XL (EXTENDED RELEASE) 30 MG PO (17:11)
[2025-03-23] MEDS: ROCEPHIN 1000 MG IV (17:11)
[2025-03-23] MEDS: STERILE WATER FOR INJECTION 10 ML IV (17:12)
[2025-03-23] MEDS: THIAMINE INJECTION 100 MG IV (17:13)
--- NOTE | 2025-03-23 17:35 | PTCARENOTE ---
Assumed care of pt and she was very drowsy but able to answer o x2, pt foretful during conversation. 100% A a paced on monitor. toerating p intake without coughing or signs of aspiration. Denies pain. Moving all extremities but legs are quite
stiff. Pt frequently crossing and uncrossing feet independently. Pt able to follow simple directions. No signs of seizure activity. Many family members at bedside today and pt does visit with them and is able to recognize the family
--- NOTE | 2025-03-23 20:59 | PTCARENOTE ---
Report received from previous shift RN. Pt in bed with visitors at bedside. Pt is AAOself, forgetful to time and place. Pt denies pain. Lung sounds are clear/decreased throughout, pox 94% on room air, shallow respirations, pt denies SOB/cough.
Telemetry rhythm reveals A-pacing, HR 70, no edema noted, palpable peripheral pulses present. +BS, abdomen soft nontender, tolerating PO diet. Pt incontinent bowel and bladder. Skin as documented. R upper AC int flushed and patent, IVF per order. IV
is bruised and positional, received pt w 'no-no' immobilizer in place, all unchanged per prior shift RN. Call lopez in reach, bed alarm on and monitoring for pt safety, safe environment maintained. Will monitor closely.
[2025-03-23] MEDS: ACTIGALL 600 MG PO (21:51)
[2025-03-23] MEDS: LIPITOR 80 MG PO (21:51)
[2025-03-23] MEDS: TOPROL XL 50 MG PO (21:52)
[2025-03-24] VITALS (14 sets, daily range): BP systolic 87–178; BP diastolic 44–122; BMI 24.3
[2025-03-24] MEDS: SINEMET CR 50/200 (EXTENDED RELEASE) 1 TABLET PO (00:03)
--- NOTE | 2025-03-24 03:08 | PTCARENOTE ---
Pt continues w confusion. Pt attempting to sit forward and move around in bed, adamant about getting out of bed. Informed pt it was 0300 and she was in the hospital due to having several seizures. Pt laid back down in bed. Bed alarm on and
monitoring for pt safety.
--- NOTE | 2025-03-24 04:00 | PTCARENOTE ---
Pt makes continued attempts to get out of bed and is pulling at IMU equipment (BP cuff, pox sensor, etc) despite repeated education. Discussed w HAYDEN Floyd. FLUOROSCOPE OPERATOR placing order for b/l wrist restraints.
[2025-03-24 05:11] LABS: Hematocrit 27.3 % (37.0-47.0); Hemoglobin 8.6 g/dL (12.0-16.0); Mean Corp Hgb Conc. 31.5 g/dL (33.0-37.0); Mean Corpuscular Volume 93.8 fL (81.0-99.0); Nucleated Red Blood Cells % 0 %; Platelet Count 267 10^3/uL (130-400); Red Cell Dist. Width 14.8 % (11.5-14.5)
[2025-03-24 05:38] LABS: ALT (SGPT) < 10 U/L (0-35); AST (SGOT) 17 U/L (14-36); Albumin 3.2 g/dl (3.5-5.0); Alkaline Phosphatase 96 U/L (38-126); Blood Urea Nitrogen 13 mg/dl (7-17); Calcium 8.7 mg/dl (8.4-10.2); Carbon Dioxide 24 mmol/L (22-30); Chloride 108 mmol/L (98-107); Estimated Creatinine Clearance 44 ml/min; Glucose 107 mg/dl (70-99); Potassium 3.7 mmol/L (3.5-5.1); Sodium 136 mmol/L (135-145); Total Protein 6.2 g/dl (6.3-8.2); eGFR > 60.00
[2025-03-24] MEDS: SYNTHROID 100 MCG PO (06:37)
--- NOTE | 2025-03-24 09:54 | PTCARENOTE ---
s/w attending R/T behaviors and confusion- pt is agitated- refusing all AM medication, multiple attempts. Refused EEG despite redirection and education attempts.
[2025-03-24] MEDS: VITAMIN B-12 1000 MCG PO (10:03)
[2025-03-24] MEDS: PRADAXA 150 MG PO ×2 (10:03→20:19)
[2025-03-24] MEDS: SENOKOT-S 1 TABLET PO ×2 (10:03→20:18)
[2025-03-24] MEDS: VITAMIN D3 (cholecalciferol) 50 MCG PO (10:03)
[2025-03-24] MEDS: TOPROL XL 100 MG PO (10:16)
[2025-03-24] MEDS: TIKOSYN 250 MCG PO ×2 (10:17→20:18)
[2025-03-24] MEDS: SINEMET 25-100 1 TABLET PO ×4 (10:17→22:11)
[2025-03-24] MEDS: KEPPRA IV (10:50)
[2025-03-24] MEDS: NSS IV (10:51)
--- NOTE | 2025-03-24 11:03 | CM ---
Addendum entered by Ct Mims 03/24/25 11:09:
Patient will need AUTH from insurance to return. Referral sent to [facility] to follow.
Original Note:
Initial Assessment Completed By DIAZ Fofana.
Patient lives alone in a 2 Story House with 6-10 steps to enter, lives all on the 1st floor, uses a rolling walker, no other DME, [facility] in the past, and 2 stays at [facility]. Patient has been at [facility] for STR since last admission at , 03/11/25.
Had also been there after admission in January. Daughters live locally and provide support. Needs assistance with ADLs and personal care.
PCP: Shellie Snell at [facility]
Home Pharmacy: [facility] currently providing meds.
Daughter said they are paying for a bed at [facility]. PLAN: Anticipate return to [facility] for STR at discharge.
[2025-03-24] MEDS: 0.45% NACL with KCL 20 MEQ 1000 IV (11:20)
[2025-03-24] MEDS: DEPACON 55 MG IV ×2 (11:27→23:09)
[2025-03-24] MEDS: IMDUR (EXTENDED RELEASE) 60 MG PO (11:37)
[2025-03-24] MEDS: PROTONIX 20 MG PO ×2 (11:37→20:18)
[2025-03-24] MEDS: SODIUM CHLORIDE 1 GRAM PO ×2 (11:37→20:18)
[2025-03-24] MEDS: ACTIGALL 300 MG PO (11:37)
[2025-03-24] MEDS: OSCAL CAL 500 500 MG PO (11:37)
[2025-03-24] MEDS: DIOVAN 80 MG PO (11:38)
[2025-03-24] MEDS: THIAMINE INJECTION 100 MG IV (11:38)
--- NOTE | 2025-03-24 11:59 | PTCARENOTE ---
pt was confused, combative and agitated- refused EEG, breakfast, and all medications- did not want staff to touch pt. family members arrived, pt improved greatly- still confused and weary of staff but accepting of care and medications with heavy
family involvement.
--- NOTE | 2025-03-24 14:04 | W.PN.HOSP.TC ---
Today's Communication/Plan
-
EEG.
Adjusting antiepileptic regimen.
Monitor cognitive status
IV fluids
Aspiration precautions
Assessment / Plan
Assessment / Plan
Impression
Breakthrough generalized seizure.
Metabolic encephalopathy secondary to above possibly prolonged postictal state
Initial concern for sepsis ruled out
Leukocytosis resolved.
Non-HI troponin elevation
Conditions prior to admission
Recent hospitalization for urinary tract infection
Parkinson's disease baseline chronic hyponatremia
Persistent atrial fibrillation
Anticoagulation with Pradaxa
Dyslipidemia
Hypothyroidism
Primary biliary cirrhosis
Plan:
Breakthrough generalized seizure.
Remains encephalopathic with confusion and disorientation.
Exam with no focal findings.
Repeat CT scan of the head on 03/22 with no acute abnormalities
Recent MRI of the brain on 03/19 with possible tiny infarcts, although less likely
EEG pending.
Will attempt to repeat MRI of the brain with and without contrast if patient is cooperative
Adjusting antiepileptic regimen:
� Decreasing Keppra to 750 every 12 hours
�Add valproic acid 500 mg every 12 hours 1 attempt to improve agitation
Discussed with neurology
Parkinson's disease
Continue Sinemet
Primary biliary cirrhosis.
Undetectable ammonia level.
Currently compensated
Continue ursodiol
Recent UTI. Completed course of antibiotics.
Concern for sepsis upon admission given elevated white count baseline repeated urine culture with no growth. Sepsis ruled out
Blood cultures negative to date.
Afebrile.
Offers no new complaints.
Initiated on ceftriaxone. Hold further antibiotics and monitor closely
Persistent atrial fibrillation.
Rate controlled with Tikosyn, metoprolol.
No known history of CHF or CAD.Recent echocardiogram with preserved biventricular function and no regional wall motion abnormalities.
Essential hypertension
Preadmission regimen including metoprolol, nifedipine, Imdur, valsartan. Monitor hemodynamics and renal function. Check for orthostasis.
Continue statin
Hypothyroidism on replacement
Anticipated Discharge: 24 - 48 hours
Subjective/Interval History
-
Date of Service: March 24, 2025
Objective Data
-
Labs:
Laboratory Results
03/24/25
04:48
WBC 10.1
Hgb 8.6 L
Hct 27.3 L
Plt Count 267 D
Sodium 136
Potassium 3.7
Chloride 108 H
Carbon Dioxide 24
BUN 13
Creatinine 0.6
Glucose 107 H
Calcium 8.7
Total Bilirubin 0.7
AST 17
ALT < 10
Alkaline Phosphatase 96
Vital Signs:
Vital Signs
Temp Pulse Resp BP Pulse Ox
98.4 F 70 18 148/74 92
03/24/25 07:15 03/24/25 12:00 03/24/25 12:00 03/24/25 12:00 03/24/25 08:10
I&O
03/23/25 03/24/25 03/25/25
06:59 06:59 06:59
Intake Total 600 / 600 2645 / 2645
Output Total 0 / 0
Balance 600 / 600 2645 / 2645
Physical Exam
-
General: Well Developed and No Apparent Distress
HEENT: Normocephalic, Atraumatic and Moist Mucous Membranes
Respiratory: Clear to Auscultation
Cardiac: Regular Rhythm and S1/S2; Negative Murmur, Rub or Gallop
GI: Soft, Nontender, Nondistended and Normal Bowel Sounds; Negative Organomegaly
Rectal: Deferred by Provider
Musculoskeletal: No Clubbing, No Cyanosis and No Edema
Skin: Negative Rash
Neuro: Awake, Alert and Nonfocal/Grossly Intact; Negative Oriented (Disoriented)
--- NOTE | 2025-03-24 15:13 | PN.CDI ---
CDI
- -
CDI:
Physician Documentation Request
Admit Date: 03/22/25 20:49
Dear Doctor Michaela,
Please review the following and provide your response in the progress notes.
Clinical Indicators:
Height: 4'7
Weight: 103 lbs
BMI: 18.4+
Other Clinical Notes: PT note 'weakness, impaired balance and coordination, impaired functional mobility'
If possible, please provide an associated diagnosis related to the abnormal BMI, such as:
Underweight
Cachectic
BMI is not significant
Other (please specify)
Use of terms such as suspected, likely, concern for, or probable (associated with a specific diagnosis that is being evaluated, monitored, or treated as if it exists) are acceptable and can be coded in the inpatient setting, when documented at the
time of discharge.
Thank you,
Phoenix Lawrence RN
CDI Specialist
Please use your independent medical judgment in providing your response.
[2025-03-24] MEDS: STERILE WATER FOR INJECTION IV (17:22)
[2025-03-24] MEDS: PROCARDIA XL (EXTENDED RELEASE) 30 MG PO (17:34)
--- NOTE | 2025-03-24 17:48 | W.PN.NEURO.1 ---
Today's Communication / Plan
-
The patient presented with breakthrough seizures.
. The patient's mental status has improved. She has a history of atrial fibrillation and is anticoagulated with Pradaxa.
. The patient refused to have the EEG done.
. The plan is to decrease the dose of Keppra to 750 mg twice twice a day as the patient was agitated, and add valproic acid 500 mg every 12 hours. The plan is to decrease the dose of Keppra gradually.
. Continue Sinemet for Parkinson disease.
. CT scan of the head on 03/22 with no acute abnormalities.
. Recent MRI of the brain on 03/19 showed a concern about tiny acute ischemic infarcts and also there was a concern about severe spinal cord compression and central canal stenosis at C4/C5. With possible tiny infarcts, although less likely
. MRI of the brain with and without contrast and MRI of cervical spine without contrast are pending.
. The patient refused to have the EEG done.
Subjective/Objective
Subjective Data
Date of Service: March 24, 2025
The patient is an 84 years old female, who presented to the hospital for seizure-like activity with head jerking, hands shaking and grimacing lasting several minutes as per her daughter the patient has had. The patient was started on Keppra on
03/18/2025 after the first seizure. The patient has had functional decline that began in the summer when she transitioned from walking with a cane to requiring a walker by November. The patient has had cognitive and behavioral changes over the past
year. She became unable to cook for herself and her daughters took over managing her finances.Her personality changed over the last 6 months, becoming more suspicious. At [email or web address] she was expressing anger at her daughters for not taking care of her
and wanting to go home.
Neurologic examination:
The patient is alert and oriented x 3,
Her speech is clear,
She does not have any gross focal motor weakness
She does not appear to have any limb ataxia.
The patient's mental status has improved. She has a history of atrial fibrillation and is anticoagulated with Pradaxa.
. CT scan of the head on 03/22 with no acute abnormalities.
. Recent MRI of the brain on 03/19 showed a concern about tiny acute ischemic infarcts and also there was a concern about severe spinal cord compression and central canal stenosis at C4/C5. With possible tiny infarcts, although less likely
. MRI of the brain with and without contrast and MRI of cervical spine without contrast are pending.
. The patient refused to have the EEG done.
. The plan is to decrease the dose of Keppra to 750 mg twice twice a day as the patient was agitated, and add valproic acid 500 mg every 12 hours. The plan is to decrease the dose of Keppra gradually.
. Continue Sinemet for Parkinson disease.
Objective Data
Vital Signs
Temp Pulse Resp BP Pulse Ox
36.8 C 70 19 152/60 92
03/24/25 11:15 03/24/25 17:34 03/24/25 17:33 03/24/25 17:34 03/24/25 08:10
Lab Results
03/24/25 04:48
03/24/25 04:48
Sodium 136 mmol/L (135-145) 03/24/25 04:48
Potassium 3.7 mmol/L (3.5-5.1) 03/24/25 04:48
BUN 13 mg/dl (7-17) 03/24/25 04:48
Glucose 107 mg/dl (70-99) H 03/24/25 04:48
Calcium 8.7 mg/dl (8.4-10.2) 03/24/25 04:48
Patient Allergies
adhesive Allergy (Verified 03/22/25 16:41)
Redness, rash
amiodarone Allergy (Verified 03/22/25 16:41)
tremors
diltiazem Allergy (Verified 03/22/25 16:41)
Rash
furosemide (From Lasix) Allergy (Verified 03/22/25 16:41)
Unknown
hydralazine (Hydralazine) Allergy (Verified 03/22/25 16:41)
RAMSEY, Fatigue, Dizziness
Iodinated Contrast Media (Iodinated Contrast Media - IV Dye) Allergy (Verified 03/22/25 16:41)
Rash and Warmth
iodine (Iodine) Allergy (Verified 03/22/25 16:41)
rash with ivp dye
omeprazole Allergy (Verified 03/22/25 16:41)
Nausea
spironolactone Allergy (Verified 03/22/25 16:41)
kidney failure- Hypercalcemia
[2025-03-24] MEDS: KEPPRA 750 MG IV (20:20)
--- NOTE | 2025-03-24 20:53 | PTCARENOTE ---
Assumed care of pt from dayshift RN after change of shift report. Pt daughter at bedside. pt is awake and engaging in conversations. answers name and , oriented to place. disoriented to time. calm and cooperating with care a this time. agreeable
to take hs meds. pt is a paced on monitor, HR 70 bpm. assessment as documented. call light in reach. safe environment maintained.
[2025-03-24] MEDS: ACTIGALL 600 MG PO (22:11)
[2025-03-24] MEDS: TOPROL XL 50 MG PO (22:11)
[2025-03-24] MEDS: LIPITOR 80 MG PO (22:11)
[2025-03-25] VITALS (23 sets, daily range): BP systolic 94–175; BP diastolic 30–86; PULSE 70–71; O2SAT 98; BMI 24.1
[2025-03-25] MEDS: SINEMET CR 50/200 (EXTENDED RELEASE) 1 TABLET PO ×2 (00:20→23:42)
--- NOTE | 2025-03-25 01:05 | PTCARENOTE ---
Pt restless in bed, attempting to exit bed independently. taking monitoring off. pt stating she wants to go home. this RN attempted to reorient pt to place and time stating it is night time, but unsuccessful. pt remains wanting to go home. pt laying
back down in bed at this time but has made multiple attempts to get up. bed alarm in use for pt safety.
--- NOTE | 2025-03-25 01:47 | VATNOTE ---
03/25 014
Called by PCN to take a look at patients ML site. She noticed increased bruising. UAC 26cm which is the same as when inserted, no active bleeding noticed at the insertion site, ML flushes and able to obtain a blood return when arm is extended out
straight. Bruising appears to be from insertion of the line yesterday. PCN aware to call if anything changes.
[2025-03-25] MEDS: 0.45% NACL with KCL 20 MEQ 1000 IV (02:43)
[2025-03-25 05:06] LABS: Hematocrit 26.7 % (37.0-47.0); Hemoglobin 8.3 g/dL (12.0-16.0); Mean Corp Hgb Conc. 31.1 g/dL (33.0-37.0); Mean Corpuscular Volume 91.4 fL (81.0-99.0); Nucleated Red Blood Cells % 0 %; Platelet Count 279 10^3/uL (130-400); Red Cell Dist. Width 14.7 % (11.5-14.5)
--- NOTE | 2025-03-25 05:30 | PTCARENOTE ---
Addendum entered by Brandon Arshad RN 03/25/25 06:04:
Everett GONZALES and to bedside to assess.
Original Note:
pts left eye presenting to be bloody. pupils remain 2mm, equal, briskly reactive. neuro checks unchanged, alert and answering questions. denies pain or changes in vision. VSS. assessment findings reported to Everett GONZALES.
[2025-03-25 05:33] LABS: ALT (SGPT) < 10 U/L (0-35); AST (SGOT) 19 U/L (14-36); Albumin 3.3 g/dl (3.5-5.0); Alkaline Phosphatase 96 U/L (38-126); Blood Urea Nitrogen 8 mg/dl (7-17); Calcium 9.0 mg/dl (8.4-10.2); Carbon Dioxide 26 mmol/L (22-30); Chloride 104 mmol/L (98-107); Estimated Creatinine Clearance 44 ml/min; Glucose 103 mg/dl (70-99); Potassium 4.2 mmol/L (3.5-5.1); Sodium 138 mmol/L (135-145); Total Protein 6.4 g/dl (6.3-8.2); eGFR > 60.00
[2025-03-25] MEDS: SYNTHROID 100 MCG PO (05:35)
--- NOTE | 2025-03-25 05:51 | W.PN.UPDATE ---
Update Note
Progress Note Update
-Patient noted with subconjunctival hemorrhage LT eye, no pain, change of vision and foreign body. pupils reacted equally to lights.
-on Pradaxa for a-fib.
-Will monitor for any changes, discussed with the nursing staff
[2025-03-25] MEDS: ACTIGALL 300 MG PO (10:33)
[2025-03-25] MEDS: SINEMET 25-100 1 TABLET PO ×4 (10:33→21:09)
[2025-03-25] MEDS: VITAMIN B-12 1000 MCG PO (10:34)
[2025-03-25] MEDS: PRADAXA 150 MG PO ×2 (10:34→20:32)
[2025-03-25] MEDS: VITAMIN D3 (cholecalciferol) 50 MCG PO (10:34)
[2025-03-25] MEDS: PROTONIX 20 MG PO ×2 (10:35→20:32)
[2025-03-25] MEDS: TIKOSYN 250 MCG PO ×2 (10:35→20:32)
[2025-03-25] MEDS: SODIUM CHLORIDE 1 GRAM PO ×2 (10:35→20:31)
[2025-03-25] MEDS: OSCAL CAL 500 500 MG PO (10:36)
[2025-03-25] MEDS: IMDUR (EXTENDED RELEASE) PO (10:36)
[2025-03-25] MEDS: SENOKOT-S 1 TABLET PO ×2 (10:36→20:33)
[2025-03-25] MEDS: KEPPRA 750 MG IV ×2 (10:41→20:30)
[2025-03-25] MEDS: DIOVAN 80 MG PO (10:42)
[2025-03-25] MEDS: TOPROL XL 100 MG PO (10:42)
[2025-03-25] MEDS: IMDUR (EXTENDED RELEASE) 60 MG PO (10:47)
--- NOTE | 2025-03-25 12:00 | PTOTSP ---
Please order occupational therapy evaluation for ADL dysfunction and to assist with dc planning. Thank you.
[2025-03-25] MEDS: DEPACON 55 MG IV ×2 (12:27→23:19)
[2025-03-25] MEDS: THIAMINE INJECTION 100 MG IV (12:28)
--- NOTE | 2025-03-25 13:28 | W.PN.HOSP.TC ---
Today's Communication/Plan
-
Continue IV Keppra and Depakote for another 24 hours with plan to transition to oral equivalent if stable oral intake
Echocardiogram
Stop IV fluids and monitor oral intake
Assessment / Plan
Assessment / Plan
Impression
Breakthrough generalized seizure.
Metabolic encephalopathy secondary to above possibly prolonged postictal state
Initial concern for sepsis ruled out
Leukocytosis resolved.
Non-PA troponin elevation
Conditions prior to admission
Recent hospitalization for urinary tract infection
Parkinson's disease baseline chronic hyponatremia
Persistent atrial fibrillation
Anticoagulation with Pradaxa
Dyslipidemia
Hypothyroidism
Primary biliary cirrhosis
Plan:
Breakthrough generalized seizure.
Remains encephalopathic with confusion and disorientation.
Exam with no focal findings.
Repeat CT scan of the head on 03/22 with no acute abnormalities
Recent MRI of the brain on 03/19 with possible tiny infarcts, although less likely
EEG pending.
Adjusting antiepileptic regimen:
� Decreasing Keppra to 750 every 12 hours
�Add valproic acid 500 mg every 12 hours 1 attempt to improve agitation
Concern for acute ischemic CVA
Follow-up MRI on 03/25:
1. TINY ACUTE ISCHEMIC INFARCTS in the cortical [place] matter of the anterolateral left frontal lobe and medial right parietal lobe which appear new from 03/20/2025.
2. Multiple small to moderate-sized chronic transcortical ischemic infarcts in the frontal and parietal lobes.
3. VERY SEVERE WHITE MATTER LEUKOARAIOSIS in the frontal lobes, parietal lobes, internal capsules, and external capsules bilaterally.
4. 3.7 mm chronic lacunar infarct in the left thalamus.
5. Moderate diffuse cerebral and cerebellar volume loss.
6. Tiny chronic intraparenchymal microhemorrhages in the left parietal lobe and right cerebellar hemisphere.
7. 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 Moderate spinal cord compression and central canal stenosis at C4/C5 and C5/C6.
Patient with atrial fibrillation has been on Pradaxa
Will update echocardiogram to exclude cardioembolic source
Consider transition of Pradaxa given anticoagulation including factor X inhibitor (Eliquis or Xarelto)
Parkinson's disease
Continue Sinemet
Primary biliary cirrhosis.
Undetectable ammonia level.
Currently compensated
Continue ursodiol
Recent UTI. Completed course of antibiotics.
Concern for sepsis upon admission given elevated white count baseline repeated urine culture with no growth. Sepsis ruled out
Blood cultures negative to date.
Afebrile.
Offers no new complaints.
Initiated on ceftriaxone. Hold further antibiotics and monitor closely
Persistent atrial fibrillation.
Rate controlled with Tikosyn, metoprolol.
No known history of CHF or CAD.Recent echocardiogram with preserved biventricular function and no regional wall motion abnormalities.
Essential hypertension
Preadmission regimen including metoprolol, nifedipine, Imdur, valsartan. Monitor hemodynamics and renal function. Check for orthostasis.
Continue statin
Hypothyroidism on replacement
Anticipated Discharge: 24 - 48 hours
Subjective/Interval History
-
Date of Service: March 25, 2025
Objective Data
-
Labs:
Laboratory Results
03/25/25
04:52
WBC 10.9 H
Hgb 8.3 L
Hct 26.7 L
Plt Count 279
Sodium 138
Potassium 4.2
Chloride 104
Carbon Dioxide 26
BUN 8
Creatinine 0.6
Glucose 103 H
Calcium 9.0
Total Bilirubin 0.7
AST 19
ALT < 10
Alkaline Phosphatase 96
Vital Signs:
Vital Signs
Temp Pulse Resp BP Pulse Ox
97.9 F 70 20 178/59 94
03/25/25 12:26 03/25/25 10:42 03/25/25 05:30 03/25/25 10:42 03/25/25 05:30
I&O
03/24/25 03/25/25 03/26/25
06:59 06:59 06:59
Intake Total 2645 / 2645 2349
Output Total 300 / 300
Balance 2645 / 2645 2049
Physical Exam
-
General: Well Developed and No Apparent Distress
HEENT: Normocephalic, Atraumatic and Moist Mucous Membranes
Respiratory: Clear to Auscultation
Cardiac: Regular Rhythm and S1/S2; Negative Murmur, Rub or Gallop
GI: Soft, Nontender, Nondistended and Normal Bowel Sounds; Negative Organomegaly
Rectal: Deferred by Provider
Musculoskeletal: No Clubbing, No Cyanosis and No Edema
Skin: Negative Rash
Neuro: Awake, Alert and Nonfocal/Grossly Intact; Negative Oriented (Disoriented)
[2025-03-25] MEDS: 0.45% NACL with KCL 20 MEQ IV (13:30)
--- NOTE | 2025-03-25 15:32 | PTCARENOTE ---
Addendum entered by Varsha De Souza RN 03/25/25 16:28:
NIH score discussed with neurology, left facial droop and unable to answer questions regarding age and month.
Original Note:
Patient is awake and alert today, confused to time and place. Went for MRI today. NIH score is 3. Patient was compliant with plan of care and medication regimen today. Appetite is fair, family brought in food for patient. Patient is denying pain
when asked. Family at bedside at this time.
[2025-03-25] MEDS: PROCARDIA XL (EXTENDED RELEASE) 30 MG PO (17:38)
[2025-03-25] MEDS: STERILE WATER FOR INJECTION IV (17:39)
--- NOTE | 2025-03-25 17:56 | W.PN.NEURO.1 ---
Addendum entered and electronically signed by Miles Vuong MD 03/25/25 18:14:
. The plan is to decrease the dose of Keppra further to 500 mg twice a day and increase the dose of valproic acid to 750 mg twice a day. The plan is to decrease the dose of Keppra gradually and then stop it. The patient's mental status has
improved significantly since yesterday.
. Continue Sinemet for Parkinson disease.
. Recommend neurosurgical consultation for cervical spinal cord compression.
Discussed with Dr. Raphael Jennings.
I had a detailed discussion with the patient and the patient's daughter regarding the assessment and management plan, and they verbalized understanding of our discussion.
Original Note:
Today's Communication / Plan
-
. The plan is to decrease the dose of Keppra further to 500 mg twice twice a day and increase the dose of valproic acid to 750 mg twice a day. The plan is to decrease the dose of Keppra gradually. The patient's mental status has improved
significantly since yesterday.
. Continue Sinemet for Parkinson disease.
. Recommend neurosurgical consultation for cervical spinal cord compression.
Discussed with Dr. Raphael Jennings.
I had a detailed discussion with the patient and the patient's daughter regarding the assessment and management plan, and they verbalized understanding of our discussion.
Subjective/Objective
Subjective Data
Date of Service: March 25, 2025
The patient presented with breakthrough seizures.
. The patient's mental status has improved as compared to yesterday. She has a history of atrial fibrillation and is anticoagulated with Pradaxa.
. The patient refused to have the EEG done.
. CT scan of the head on 03/22 with no acute abnormalities.
Neurologic Examination:
The patient is alert and oriented to self person and place.
Speech is clear
The patient does not have any gross focal weakness.
. MRI of the brain:
TINY ACUTE ISCHEMIC INFARCTS in the cortical [place] matter of the anterolateral left frontal lobe and medial right parietal lobe which appear new from 03/20/2025.
Multiple small to moderate-sized chronic transcortical ischemic infarcts in the frontal and parietal lobes.
VERY SEVERE WHITE MATTER LEUKOARAIOSIS in the frontal lobes, parietal lobes, internal capsules, and external capsules bilaterally.
3.7 mm chronic lacunar infarct in the left thalamus.
. MRI of cervical spine:
MODERATE to SEVERE SPINAL CORD COMPRESSION and CENTRAL CANAL STENOSIS at C4/C5 secondary to a large left central disc-osteophyte complex. Moderate to severe discogenic degenerative disease at C4/C5.
Moderate spinal cord compression and central canal stenosis at C5/C6 secondary to a large disc-osteophyte complex. Severe left neural foraminal narrowing and severe discogenic degenerative disease at C5/C6.
Severe left-sided facet joint arthrosis at C3/C4. Mild spinal cord compression, mild central canal stenosis, and severe left neural foraminal narrowing at C3/C4.
. The plan is to decrease the dose of Keppra further to 500 mg twice twice a day and increase the dose of valproic acid to 750 mg twice a day. The plan is to decrease the dose of Keppra gradually. The patient's mental status has improved
significantly since yesterday.
. Continue Sinemet for Parkinson disease.
. Recommend neurosurgical consultation for cervical spinal cord compression.
Objective Data
Vital Signs
Temp Pulse Resp BP Pulse Ox
36.6 C 70 17 162/68 100
03/25/25 12:26 03/25/25 17:38 03/25/25 16:00 03/25/25 17:38 03/25/25 16:00
Lab Results
03/25/25 04:52
03/25/25 04:52
Sodium 138 mmol/L (135-145) 03/25/25 04:52
Potassium 4.2 mmol/L (3.5-5.1) 03/25/25 04:52
BUN 8 mg/dl (7-17) 03/25/25 04:52
Glucose 103 mg/dl (70-99) H 03/25/25 04:52
Calcium 9.0 mg/dl (8.4-10.2) 03/25/25 04:52
Patient Allergies
adhesive Allergy (Verified 03/22/25 16:41)
Redness, rash
amiodarone Allergy (Verified 03/22/25 16:41)
tremors
diltiazem Allergy (Verified 03/22/25 16:41)
Rash
furosemide (From Lasix) Allergy (Verified 03/22/25 16:41)
Unknown
hydralazine (Hydralazine) Allergy (Verified 03/22/25 16:41)
RAMSEY, Fatigue, Dizziness
Iodinated Contrast Media (Iodinated Contrast Media - IV Dye) Allergy (Verified 03/22/25 16:41)
Rash and Warmth
iodine (Iodine) Allergy (Verified 03/22/25 16:41)
rash with ivp dye
omeprazole Allergy (Verified 03/22/25 16:41)
Nausea
spironolactone Allergy (Verified 03/22/25 16:41)
kidney failure- Hypercalcemia
Vital Signs and Labs
-
Vital Signs and Labs:
Vital Signs
Temp Pulse Resp BP Pulse Ox
36.6 C 70 17 162/68 100
03/25/25 12:26 03/25/25 17:38 03/25/25 16:00 03/25/25 17:38 03/25/25 16:00
Lab Results
03/25/25 04:52
03/25/25 04:52
Sodium 138 mmol/L (135-145) 03/25/25 04:52
Potassium 4.2 mmol/L (3.5-5.1) 03/25/25 04:52
BUN 8 mg/dl (7-17) 03/25/25 04:52
Glucose 103 mg/dl (70-99) H 03/25/25 04:52
Calcium 9.0 mg/dl (8.4-10.2) 03/25/25 04:52
Medications
-
Active Medications
Generic Name Dose Route Start Last Admin
Trade Name Freq PRN Reason Stop Dose Admin
Acetaminophen 650 mg 03/22/25 22:56
Acetaminophen 325 Mg Tablet PO 04/19/25 22:55
Q4HPRN PRN
mild pain/MCGHEE/temp> 100.4F
Atorvastatin Calcium 80 mg 03/22/25 22:56 03/24/25 22:11
Atorvastatin (Lipitor) 80 Mg Tablet PO 04/19/25 22:55 80 mg
HS SOFIA Administration
Calcium Carbonate 200 mg 03/22/25 22:56
Calcium Antacid 200 Mg (Calcium Carbonate 500 Mg) Chew Tablet PO 04/19/25 22:55
Q8HPRN PRN
gerd
Calcium Carbonate 500 mg 03/23/25 08:00 03/25/25 10:36
Calcium Carbonate 500 Mg Tablet PO 04/20/25 07:59 500 mg
DAILY SOFIA Administration
Carbidopa/Levodopa 1 tablet 03/22/25 22:56 03/25/25 17:38
Carbidopa (25 Mg)/Levodopa (100 Mg) Regular Release Tablet PO 04/19/25 22:55 1 tablet
QID SOFIA Administration
Carbidopa/Levodopa 1 tablet 03/23/25 00:00 03/25/25 00:20
Carbidopa (50 Mg)/Levodopa (200 Mg) Extended Release Tablet PO 04/20/25 00:00 1 tablet
DAILY@0000 SOFIA Administration
Cholecalciferol 50 mcg 03/23/25 08:00 03/25/25 10:34
Cholecalciferol (Vitamin D3) 50 Mcg Tablet (2,000 Units) PO 04/20/25 07:59 50 mcg
DAILY SOFIA Administration
Cyanocobalamin 1,000 mcg 03/23/25 08:00 03/25/25 10:34
Cyanocobalamin (Vitamin B-12) 500 Mcg Tablet PO 04/20/25 07:59 1,000 mcg
DAILY SOFIA Administration
Dabigatran 150 mg 03/23/25 08:00 03/25/25 10:34
Dabigatran Etexilate (Pradaxa) 150 Mg Capsule PO 04/20/25 07:59 150 mg
BID SOFIA Administration
Dofetilide 250 mcg 03/23/25 08:00 03/25/25 10:35
Dofetilide 250 Mcg Capsule PO 04/20/25 07:59 250 mcg
BID SOFIA Administration
Valproate Sodium 500 mg/ 55 mls @ 55 mls/hr 03/24/25 11:00 03/25/25 12:27
Sodium Chloride IV 04/21/25 10:59 55 mls
Q12H SOFIA Administration
Isosorbide Mononitrate 60 mg 03/23/25 08:00 03/25/25 10:47
Isosorbide Mononitrate 60 Mg Extended Release Tablet PO 04/20/25 07:59 60 mg
DAILY SOFIA Administration
Levetiracetam 750 mg 03/24/25 10:31 03/25/25 10:41
Levetiracetam (100 Mg/Ml) 500 Mg/5 Ml Vial IV 04/20/25 07:59 750 mg
Q12 OSFIA Administration
Levothyroxine Sodium 100 mcg 03/23/25 06:00 03/25/25 05:35
Levothyroxine 100 Mcg Tablet PO 04/20/25 05:59 100 mcg
DAILY @ 0600 SOFIA Administration
Magnesium Hydroxide 30 ml 03/22/25 22:56
Milk Of Magnesia 30 Ml Cup PO 04/19/25 22:55
DAILYPRN PRN
if no bm by 3rd day give on day 4
Metoprolol Succinate 50 mg 03/22/25 22:56 03/24/25 22:11
Metoprolol 50 Mg Extended Release Tablet PO 04/19/25 22:55 50 mg
HS SOFIA Administration
Metoprolol Succinate 100 mg 03/23/25 08:00 03/25/25 10:42
Metoprolol 100 Mg Extended Release Tablet PO 04/20/25 07:59 100 mg
DAILY SOFIA Administration
Nifedipine 30 mg 03/23/25 18:00 03/25/25 17:38
Nifedipine 30 Mg Extended Release Tablet PO 04/20/25 17:59 30 mg
QPM SOFIA Administration
Pantoprazole Sodium 20 mg 03/23/25 08:00 03/25/25 10:35
Pantoprazole 20 Mg Delayed Release Tablet PO 04/20/25 07:59 20 mg
BID SOFIA Administration
Senna/Docusate Sodium 1 tablet 03/23/25 08:00 03/25/25 10:36
Docusate W/Senna (Lyly-Colace) Tablet PO 04/20/25 07:59 1 tablet
BID SOFIA Administration
Sodium Chloride 1 gram 03/23/25 08:00 03/25/25 10:35
Sodium Chloride 1 Gram Tablet PO 04/20/25 07:59 1 gram
BID SOFIA Administration
Sodium Chloride 0 flush 03/22/25 23:00
Sodium Chloride 0.9% (Flush) Syringe IV 04/19/25 22:59
PER PROTOCOL SOFIA
Sterile Water 10 ml 03/23/25 18:00 03/25/25 17:39
Sterile Water For Injection 10 Ml Vial IV 04/20/25 17:59 Not Given
Q24H SOFIA
Ursodiol 300 mg 03/23/25 08:00 03/25/25 10:33
Ursodiol 300 Mg Capsule PO 04/20/25 07:59 300 mg
DAILY SOFIA Administration
Ursodiol 600 mg 03/22/25 22:56 03/24/25 22:11
Ursodiol 300 Mg Capsule PO 04/19/25 22:55 600 mg
HS SOFIA Administration
Valsartan 80 mg 03/23/25 08:00 03/25/25 10:42
Valsartan 80 Mg Tablet PO 04/20/25 07:59 80 mg
DAILY SOFIA Administration
Home Medications
�Medication �Instructions �Recorded
ursodiol 300 mg capsule 600 mg PO HS Gastrointestinal Issue 01/23/17
isosorbide mononitrate 60 mg 60 mg PO DAILY Heart 05/18/22
tablet,extended release 24 hr Disease/Condition
cholecalciferol (vitamin D3) 50 50 mcg PO DAILY Supplement 06/21/23
mcg (2,000 unit) capsule (Vitamin
D3)
calcium carbonate 500 mg PO DAILY Supplement 12/07/23
pantoprazole 20 mg tablet,delayed 20 mg PO BID Gastrointestinal Issue 02/09/24
release (Protonix)
dofetilide 250 mcg capsule 250 mcg PO BID Arrhythmia 02/16/24
valsartan 80 mg tablet 80 mg PO DAILY Blood Pressure 06/29/24
carbidopa 25 mg-levodopa 100 mg 1 tab PO QID parkinson's disease 11/08/24
tablet (Sinemet)
acetaminophen 325 mg tablet 650 mg PO Q4HPRN PRN mild 11/18/24
pain/MCGHEE/temp> 100F
nifedipine 30 mg tablet,extended 30 mg PO QPM Blood Pressure 11/18/24
release 24 hr
carbidopa ER 50 mg-levodopa 200 mg 1 tab PO DAILY@0000 parkinson's 02/13/25
tablet,extended release disease
clonidine HCl 0.1 mg tablet 0.05 mg PO Q6HPRN PRN SBP>160 02/13/25
cyanocobalamin (vitamin B-12) 1,000 mcg PO DAILY Supplement 02/13/25
1,000 mcg tablet (Vitamin B-12)
ursodiol 300 mg capsule 300 mg PO DAILY Gastrointestinal 02/13/25
Issue
atorvastatin 80 mg tablet 80 mg PO HS cholesterol 03/09/25
bisacodyl 10 mg rectal suppository 10 mg [place] DAILYPRN PRN if no bm 03/09/25
(Dulcolax (bisacodyl)) aftr mom give on day 5
calcium carbonate (Tums) 200 mg PO Q8HPRN PRN gerd 03/09/25
cyclobenzaprine 5 mg tablet 7.5 mg PO HS spasms 03/09/25
cyclobenzaprine 5 mg tablet 7.5 mg PO TIDPRN PRN spasms 03/09/25
dabigatran etexilate 150 mg 150 mg PO BID a-fib 03/09/25
capsule (Pradaxa)
levothyroxine 100 mcg tablet 100 mcg PO DAILY hypothyroidism 03/09/25
magnesium hydroxide 400 mg/5 mL 2,400 mg PO DAILYPRN PRN if no bm 03/09/25
oral suspension (Milk of Magnesia) by 3rd day give on day 4
sennosides 8.6 mg-docusate sodium 1 tab PO BID Constipation 03/09/25
50 mg tablet (Senna Plus)
sodium phosphates 19 gram-7 118 ml [place] DAILYPRN PRN if no bm 03/09/25
gram/118 mL enema (Fleet Enema) aftr dulcolax give on day 6
metoprolol succinate 100 mg 100 mg PO DAILY #30 tabs 03/11/25
tablet,extended release 24 hr
metoprolol succinate 50 mg 50 mg PO HS #30 tabs 03/11/25
tablet,extended release 24 hr
Magnesium Biglycinate 400 mg PO DAILY Supplement 03/18/25
ondansetron HCl 4 mg tablet 4 mg PO Q8HPRN PRN nausea/vomiting 03/18/25
sodium chloride 1,000 mg soluble 1,000 mg PO BID Supplement 03/18/25
tablet
levetiracetam 500 mg tablet 1,000 mg PO BID Seizures 03/24/25
[2025-03-25] MEDS: LIPITOR 80 MG PO (21:09)
[2025-03-25] MEDS: TOPROL XL 50 MG PO (21:09)
[2025-03-25] MEDS: ACTIGALL 600 MG PO (21:09)
[2025-03-26] VITALS (13 sets, daily range): BP systolic 75–191; BP diastolic 29–58; BMI 24.2
--- NOTE | 2025-03-26 02:15 | PTCARENOTE ---
Assumed care of Pt from day RN. Pt completed NIH with out changes from previous shift. Pt BP soft at times over night, BONDERIZER made aware. Pt b/l upper extremity restrictions, BP being taken on calf. No witnessed seizures at this time in shift. Pt
appearing to get rest over night. Respiration even unlabored.
[2025-03-26] MEDS: SYNTHROID 100 MCG PO (05:15)
[2025-03-26 05:51] LABS: Hematocrit 27.2 % (37.0-47.0); Hemoglobin 8.8 g/dL (12.0-16.0); Mean Corp Hgb Conc. 32.4 g/dL (33.0-37.0); Mean Corpuscular Volume 91.6 fL (81.0-99.0); Nucleated Red Blood Cells % 0 %; Platelet Count 263 10^3/uL (130-400); Red Cell Dist. Width 15.0 % (11.5-14.5)
[2025-03-26 06:16] LABS: ALT (SGPT) < 10 U/L (0-35); AST (SGOT) 16 U/L (14-36); Albumin 3.2 g/dl (3.5-5.0); Alkaline Phosphatase 94 U/L (38-126); Blood Urea Nitrogen 6 mg/dl (7-17); Calcium 9.0 mg/dl (8.4-10.2); Carbon Dioxide 27 mmol/L (22-30); Chloride 102 mmol/L (98-107); Estimated Creatinine Clearance 44 ml/min; Glucose 81 mg/dl (70-99); Potassium 4.1 mmol/L (3.5-5.1); Sodium 134 mmol/L (135-145); Total Protein 6.2 g/dl (6.3-8.2); eGFR > 60.00
[2025-03-26] MEDS: KEPPRA 750 MG IV (09:06)
[2025-03-26] MEDS: SINEMET 25-100 1 TABLET PO ×3 (09:07→22:00)
[2025-03-26] MEDS: PROTONIX 20 MG PO ×2 (09:07→20:58)
[2025-03-26] MEDS: VITAMIN D3 (cholecalciferol) 50 MCG PO (09:07)
[2025-03-26] MEDS: TIKOSYN 250 MCG PO ×2 (09:07→20:57)
[2025-03-26] MEDS: SODIUM CHLORIDE 1 GRAM PO ×2 (09:07→20:58)
[2025-03-26] MEDS: PRADAXA 150 MG PO (09:08)
[2025-03-26] MEDS: DIOVAN 80 MG PO (09:08)
[2025-03-26] MEDS: VITAMIN B-12 1000 MCG PO (09:08)
[2025-03-26] MEDS: TOPROL XL 100 MG PO (09:08)
[2025-03-26] MEDS: SENOKOT-S 1 TABLET PO ×2 (09:08→20:58)
[2025-03-26] MEDS: IMDUR (EXTENDED RELEASE) 60 MG PO (09:08)
[2025-03-26] MEDS: ACTIGALL 300 MG PO (09:08)
[2025-03-26] MEDS: OSCAL CAL 500 500 MG PO (09:14)
[2025-03-26 09:46] LABS: Glucose - Point of Care 83 mg/dl (70-99)
[2025-03-26] MEDS: ATIVAN 0.5 MG IV (09:50)
[2025-03-26] MEDS: NSS (PRESERVATIVE FREE) 0.25 ML IV (09:50)
--- NOTE | 2025-03-26 09:53 | RR ---
A Rapid Response was called on this patient, please see Rapid Response form.
Approx 09:28 pt's daughter alerted this RN to 'twitching'. Upon assessment pt with gaze fixed to the R, and generalized tonic clonic movements. Rapid Response called. INFANT TEACHER, Neuro and hospitalist at bedside. Orders placed by providers. Seizure
activity ceased at 09:37, pt postictal. Stat Ativan administered, see MAR. Family updated on plan of care.
--- NOTE | 2025-03-26 10:11 | PTCARENOTE ---
Pt to CT with float RN and transport.
[2025-03-26] MEDS: DEPACON 57.5 MG IV ×2 (11:11→22:02)
--- NOTE | 2025-03-26 11:30 | PTCARENOTE ---
Pt noted to have increasing SBP as high as 190's. Dr. Jennings notified, no further orders received at this time.
[2025-03-26] MEDS: SINEMET 25-100 PO (13:27)
--- NOTE | 2025-03-26 13:28 | CM ---
F/U: There was a rapid called this morning because patient was having a seizure. Case Management to follow for discharge. PLAN: Return to [facility] when ready.
--- NOTE | 2025-03-26 15:52 | W.PN.HOSP.TC ---
Today's Communication/Plan
-
With breakthrough tonic-clonic seizure, antiepileptic regimen had been adjusted.
Continue seizure precautions.
Repeat echocardiogram pending with concern for cardioembolic source.
Transition anticoagulation of Pradaxa to Eliquis.
Plan of care discussed with patient's family and neurology at the bedside.
Assessment / Plan
Assessment / Plan
Impression
Breakthrough generalized seizure.
Metabolic encephalopathy secondary to above possibly prolonged postictal state
Initial concern for sepsis ruled out
Leukocytosis resolved.
Non-SC troponin elevation
Conditions prior to admission
Recent hospitalization for urinary tract infection
Parkinson's disease baseline chronic hyponatremia
Persistent atrial fibrillation
Anticoagulation with Pradaxa
Dyslipidemia
Hypothyroidism
Primary biliary cirrhosis
Underweight with BMI of 24
Plan:
Breakthrough generalized seizure.
Remains encephalopathic with confusion and disorientation.
Exam with no focal findings.
Repeat CT scan of the head on 03/22 with no acute abnormalities
Recent MRI of the brain on 03/19 with possible tiny infarcts, although less likely
EEG pending.
Adjusting antiepileptic regimen:
� Decreasing Keppra to 500 every 12 hours
� Increasing valproic acid to 750 mg every 12 hours
Concern for acute ischemic CVA
Follow-up MRI on 03/25:
1. TINY ACUTE ISCHEMIC INFARCTS in the cortical [place] matter of the anterolateral left frontal lobe and medial right parietal lobe which appear new from 03/20/2025.
2. Multiple small to moderate-sized chronic transcortical ischemic infarcts in the frontal and parietal lobes.
3. VERY SEVERE WHITE MATTER LEUKOARAIOSIS in the frontal lobes, parietal lobes, internal capsules, and external capsules bilaterally.
4. 3.7 mm chronic lacunar infarct in the left thalamus.
5. Moderate diffuse cerebral and cerebellar volume loss.
6. Tiny chronic intraparenchymal microhemorrhages in the left parietal lobe and right cerebellar hemisphere.
7. 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 Moderate spinal cord compression and central canal stenosis at C4/C5 and C5/C6.
Patient with atrial fibrillation has been on Pradaxa
Update echocardiogram to exclude cardioembolic source
Transition anticoagulation from Pradaxa to Eliquis on 03/26
Cervical spine DJD
MRI findings with multilevel DJD
1. MODERATE to SEVERE SPINAL CORD COMPRESSION and CENTRAL CANAL STENOSIS at C4/C5 secondary to a large left central disc-osteophyte complex. Moderate to severe discogenic degenerative disease at C4/C5.
2. Moderate spinal cord compression and central canal stenosis at C5/C6 secondary to a large disc-osteophyte complex. Severe left neural foraminal narrowing and severe discogenic degenerative disease at C5/C6.
3. Severe left-sided facet joint arthrosis at C3/C4. Mild spinal cord compression, mild central canal stenosis, and severe left neural foraminal narrowing at C3/C4.
4. Chronic superior endplate compression fractures of T1 and T2 with mild loss of vertebral body height.
5. Moderate diffuse cerebral and cerebellar volume loss.
6. 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
7. 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
In discussion with patient and patient's daughter they would not consider any surgical intervention at this point.
Parkinson's disease
Continue Sinemet
Primary biliary cirrhosis.
Undetectable ammonia level.
Currently compensated
Continue ursodiol
Recent UTI. Completed course of antibiotics.
Concern for sepsis upon admission given elevated white count baseline repeated urine culture with no growth. Sepsis ruled out
Blood cultures negative to date.
Afebrile.
Offers no new complaints.
Initiated on ceftriaxone. Hold further antibiotics and monitor closely
Persistent atrial fibrillation.
Rate controlled with Tikosyn, metoprolol.
No known history of CHF or CAD.Recent echocardiogram with preserved biventricular function and no regional wall motion abnormalities.
Essential hypertension
Preadmission regimen including metoprolol, nifedipine, Imdur, valsartan. Monitor hemodynamics and renal function. Check for orthostasis.
Continue statin
Hypothyroidism on replacement
Anticipated Discharge: 24 - 48 hours
Subjective/Interval History
-
Date of Service: March 26, 2025
Objective Data
-
Labs:
Laboratory Results
03/26/25
05:39
WBC 6.2
Hgb 8.8 L
Hct 27.2 L
Plt Count 263
Sodium 134 L
Potassium 4.1
Chloride 102
Carbon Dioxide 27
BUN 6 L
Creatinine 0.6
Glucose 81
Calcium 9.0
Total Bilirubin 0.9
AST 16
ALT < 10
Alkaline Phosphatase 94
Vital Signs:
Vital Signs
Temp Pulse Resp BP Pulse Ox
98.3 F 70 13 133/40 95
03/26/25 11:10 03/26/25 13:00 03/26/25 13:00 03/26/25 12:00 03/26/25 13:50
I&O
03/25/25 03/26/25 03/27/25
06:59 06:59 06:59
Intake Total 2350 / 2350 735 / 735
Output Total 300 / 300 700 / 700
Balance 2049 35 / 35
Physical Exam
-
General: Well Developed and No Apparent Distress
HEENT: Normocephalic, Atraumatic and Moist Mucous Membranes
Respiratory: Clear to Auscultation
Cardiac: Regular Rhythm and S1/S2; Negative Murmur, Rub or Gallop
GI: Soft, Nontender, Nondistended and Normal Bowel Sounds; Negative Organomegaly
Rectal: Deferred by Provider
Musculoskeletal: No Clubbing, No Cyanosis and No Edema
Skin: Negative Rash
Neuro: Awake, Alert and Nonfocal/Grossly Intact; Negative Oriented (Disoriented)
--- NOTE | 2025-03-26 16:33 | W.PN.NEURO.1 ---
Today's Communication / Plan
-
The plan is to give valproic acid 750 mg twice a day and to continue Keppra 500 mg twice a day for now, with the plan to decrease Keppra further if possible. The patient was postictal when she was seen, today, but she was still oriented to self and
person with clear speech.
. The plan is to use lorazepam 0.5 mg IV for breakthrough seizures and may repeated once and if the seizure does not stop, and then to call the physician.
. Continue Sinemet for Parkinson disease.
. Recommend neurosurgical consultation for cervical spinal cord compression.
Subjective/Objective
Subjective Data
Date of Service: March 26, 2025
The patient presented with breakthrough generalized seizure The patient's mental status had improved yesterday, however this morning she had witnessed seizure which was seen by the nursing staff.
Plan is to give valproic acid 750 mg twice a day and to continue Keppra 500 mg twice a day for now, with the plan to decrease Keppra further if possible. The patient was postictal when she was seen today, but she was still oriented to self and
person with clear speech.
The plan is to use lorazepam 0.5 mg IV for breakthrough seizures and may repeated once and if the seizure does not stop, and then to call the physician.
. MRI of the brain:
TINY ACUTE ISCHEMIC INFARCTS in the cortical [place] matter of the anterolateral left frontal lobe and medial right parietal lobe which appear new from 03/20/2025.
Multiple small to moderate-sized chronic transcortical ischemic infarcts in the frontal and parietal lobes.
VERY SEVERE WHITE MATTER LEUKOARAIOSIS in the frontal lobes, parietal lobes, internal capsules, and external capsules bilaterally.
3.7 mm chronic lacunar infarct in the left thalamus.
. MRI of cervical spine:
MODERATE to SEVERE SPINAL CORD COMPRESSION and CENTRAL CANAL STENOSIS at C4/C5 secondary to a large left central disc-osteophyte complex. Moderate to severe discogenic degenerative disease at C4/C5.
Moderate spinal cord compression and central canal stenosis at C5/C6 secondary to a large disc-osteophyte complex. Severe left neural foraminal narrowing and severe discogenic degenerative disease at C5/C6.
Severe left-sided
. Continue Sinemet for Parkinson disease.
. Recommend neurosurgical consultation for cervical spinal cord compression.
Discussed with Dr. Raphael Jennings.
I had a detailed discussion with the patient and the patient's daughter regarding the assessment and management plan, and they verbalized understanding of our discussion.
Objective Data
Vital Signs
Temp Pulse Resp BP Pulse Ox
36.8 C 70 13 133/40 95
03/26/25 11:10 03/26/25 13:00 03/26/25 13:00 03/26/25 12:00 03/26/25 13:50
Lab Results
03/26/25 05:39
03/26/25 05:39
Sodium 134 mmol/L (135-145) L 03/26/25 05:39
Potassium 4.1 mmol/L (3.5-5.1) 03/26/25 05:39
BUN 6 mg/dl (7-17) L 03/26/25 05:39
Glucose 81 mg/dl (70-99) 03/26/25 05:39
Calcium 9.0 mg/dl (8.4-10.2) 03/26/25 05:39
Patient Allergies
adhesive Allergy (Verified 03/22/25 16:41)
Redness, rash
amiodarone Allergy (Verified 03/22/25 16:41)
tremors
diltiazem Allergy (Verified 03/22/25 16:41)
Rash
furosemide (From Lasix) Allergy (Verified 03/22/25 16:41)
Unknown
hydralazine (Hydralazine) Allergy (Verified 03/22/25 16:41)
RAMSEY, Fatigue, Dizziness
Iodinated Contrast Media (Iodinated Contrast Media - IV Dye) Allergy (Verified 03/22/25 16:41)
Rash and Warmth
iodine (Iodine) Allergy (Verified 03/22/25 16:41)
rash with ivp dye
omeprazole Allergy (Verified 03/22/25 16:41)
Nausea
spironolactone Allergy (Verified 03/22/25 16:41)
kidney failure- Hypercalcemia
Vital Signs and Labs
-
Vital Signs and Labs:
Vital Signs
Temp Pulse Resp BP Pulse Ox
36.8 C 70 14 136/38 96
03/26/25 11:10 03/26/25 16:00 03/26/25 16:00 03/26/25 14:00 03/26/25 16:00
Lab Results
03/26/25 05:39
03/26/25 05:39
Sodium 134 mmol/L (135-145) L 03/26/25 05:39
Potassium 4.1 mmol/L (3.5-5.1) 03/26/25 05:39
BUN 6 mg/dl (7-17) L 03/26/25 05:39
Glucose 81 mg/dl (70-99) 03/26/25 05:39
Calcium 9.0 mg/dl (8.4-10.2) 03/26/25 05:39
Medications
-
Active Medications
Generic Name Dose Route Start Last Admin
Trade Name Freq PRN Reason Stop Dose Admin
Acetaminophen 650 mg 03/22/25 22:56
Acetaminophen 325 Mg Tablet PO 04/19/25 22:55
Q4HPRN PRN
mild pain/MCGHEE/temp> 100.4F
Apixaban 2.5 mg 03/26/25 20:00
Apixaban (Eliquis) 2.5 Mg Tablet PO 04/23/25 19:59
BID SOFIA
Atorvastatin Calcium 80 mg 03/22/25 22:56 03/25/25 21:09
Atorvastatin (Lipitor) 80 Mg Tablet PO 04/19/25 22:55 80 mg
HS SOFIA Administration
Calcium Carbonate 200 mg 03/22/25 22:56
Calcium Antacid 200 Mg (Calcium Carbonate 500 Mg) Chew Tablet PO 04/19/25 22:55
Q8HPRN PRN
gerd
Calcium Carbonate 500 mg 03/23/25 08:00 03/26/25 09:14
Calcium Carbonate 500 Mg Tablet PO 04/20/25 07:59 500 mg
DAILY SOFIA Administration
Carbidopa/Levodopa 1 tablet 03/22/25 22:56 03/26/25 13:27
Carbidopa (25 Mg)/Levodopa (100 Mg) Regular Release Tablet PO 04/19/25 22:55 Not Given
QID SOFIA
Carbidopa/Levodopa 1 tablet 03/23/25 00:00 03/25/25 23:42
Carbidopa (50 Mg)/Levodopa (200 Mg) Extended Release Tablet PO 04/20/25 00:00 1 tablet
DAILY@0000 SOFIA Administration
Cholecalciferol 50 mcg 03/23/25 08:00 03/26/25 09:07
Cholecalciferol (Vitamin D3) 50 Mcg Tablet (2,000 Units) PO 04/20/25 07:59 50 mcg
DAILY SOFIA Administration
Cyanocobalamin 1,000 mcg 03/23/25 08:00 03/26/25 09:08
Cyanocobalamin (Vitamin B-12) 500 Mcg Tablet PO 04/20/25 07:59 1,000 mcg
DAILY SOFIA Administration
Dofetilide 250 mcg 03/23/25 08:00 03/26/25 09:07
Dofetilide 250 Mcg Capsule PO 04/20/25 07:59 250 mcg
BID SOFIA Administration
Valproate Sodium 750 mg/ 57.5 mls @ 55 mls/hr 03/26/25 10:00 03/26/25 11:11
Sodium Chloride IV 04/21/25 09:59 57.5 mls
Q12H SOFIA Administration
Isosorbide Mononitrate 60 mg 03/23/25 08:00 03/26/25 09:08
Isosorbide Mononitrate 60 Mg Extended Release Tablet PO 04/20/25 07:59 60 mg
DAILY SOFIA Administration
Levetiracetam 500 mg 03/26/25 09:16
Levetiracetam (100 Mg/Ml) 500 Mg/5 Ml Vial IV 04/20/25 07:59
Q12 SOFIA
Levothyroxine Sodium 100 mcg 03/23/25 06:00 03/26/25 05:15
Levothyroxine 100 Mcg Tablet PO 04/20/25 05:59 100 mcg
DAILY @ 0600 SOFIA Administration
Lorazepam 0.5 mg 03/26/25 16:47
Lorazepam 2 Mg/Ml Vial IV
PRN PRN
seizure
Magnesium Hydroxide 30 ml 03/22/25 22:56
Milk Of Magnesia 30 Ml Cup PO 04/19/25 22:55
DAILYPRN PRN
if no bm by 3rd day give on day 4
Metoprolol Succinate 50 mg 03/22/25 22:56 03/25/25 21:09
Metoprolol 50 Mg Extended Release Tablet PO 04/19/25 22:55 50 mg
HS SOFIA Administration
Metoprolol Succinate 100 mg 03/23/25 08:00 03/26/25 09:08
Metoprolol 100 Mg Extended Release Tablet PO 04/20/25 07:59 100 mg
DAILY SOFIA Administration
Nifedipine 30 mg 03/23/25 18:00 03/25/25 17:38
Nifedipine 30 Mg Extended Release Tablet PO 04/20/25 17:59 30 mg
QPM SOFIA Administration
Pantoprazole Sodium 20 mg 03/23/25 08:00 03/26/25 09:07
Pantoprazole 20 Mg Delayed Release Tablet PO 04/20/25 07:59 20 mg
BID SOFIA Administration
Senna/Docusate Sodium 1 tablet 03/23/25 08:00 03/26/25 09:08
Docusate W/Senna (Lyly-Colace) Tablet PO 04/20/25 07:59 1 tablet
BID SOFIA Administration
Sodium Chloride 1 gram 03/23/25 08:00 03/26/25 09:07
Sodium Chloride 1 Gram Tablet PO 04/20/25 07:59 1 gram
BID SOFIA Administration
Sodium Chloride 0 flush 03/22/25 23:00
Sodium Chloride 0.9% (Flush) Syringe IV 04/19/25 22:59
PER PROTOCOL SOFIA
Sodium Chloride 0.25 ml 03/26/25 16:48
Nss (Pf) 10 Ml Vial For Ativan 0.5 Mg Dose IV 04/23/25 09:44
PRN PRN
To dilute ativan as needed
Sterile Water 10 ml 03/23/25 18:00 03/25/25 17:39
Sterile Water For Injection 10 Ml Vial IV 04/20/25 17:59 Not Given
Q24H SOFIA
Ursodiol 300 mg 03/23/25 08:00 03/26/25 09:08
Ursodiol 300 Mg Capsule PO 04/20/25 07:59 300 mg
DAILY SOFIA Administration
Ursodiol 600 mg 03/22/25 22:56 03/25/25 21:09
Ursodiol 300 Mg Capsule PO 04/19/25 22:55 600 mg
HS SOFIA Administration
Valsartan 80 mg 03/23/25 08:00 03/26/25 09:08
Valsartan 80 Mg Tablet PO 04/20/25 07:59 80 mg
DAILY SOFIA Administration
Home Medications
�Medication �Instructions �Recorded
ursodiol 300 mg capsule 600 mg PO HS Gastrointestinal Issue 01/23/17
isosorbide mononitrate 60 mg 60 mg PO DAILY Heart 05/18/22
tablet,extended release 24 hr Disease/Condition
cholecalciferol (vitamin D3) 50 50 mcg PO DAILY Supplement 06/21/23
mcg (2,000 unit) capsule (Vitamin
D3)
calcium carbonate 500 mg PO DAILY Supplement 12/07/23
pantoprazole 20 mg tablet,delayed 20 mg PO BID Gastrointestinal Issue 02/09/24
release (Protonix)
dofetilide 250 mcg capsule 250 mcg PO BID Arrhythmia 02/16/24
valsartan 80 mg tablet 80 mg PO DAILY Blood Pressure 06/29/24
carbidopa 25 mg-levodopa 100 mg 1 tab PO QID parkinson's disease 11/08/24
tablet (Sinemet)
acetaminophen 325 mg tablet 650 mg PO Q4HPRN PRN mild 11/18/24
pain/MCGHEE/temp> 100F
nifedipine 30 mg tablet,extended 30 mg PO QPM Blood Pressure 11/18/24
release 24 hr
carbidopa ER 50 mg-levodopa 200 mg 1 tab PO DAILY@0000 parkinson's 02/13/25
tablet,extended release disease
clonidine HCl 0.1 mg tablet 0.05 mg PO Q6HPRN PRN SBP>160 02/13/25
cyanocobalamin (vitamin B-12) 1,000 mcg PO DAILY Supplement 02/13/25
1,000 mcg tablet (Vitamin B-12)
ursodiol 300 mg capsule 300 mg PO DAILY Gastrointestinal 02/13/25
Issue
atorvastatin 80 mg tablet 80 mg PO HS cholesterol 03/09/25
bisacodyl 10 mg rectal suppository 10 mg NC DAILYPRN PRN if no bm 03/09/25
(Dulcolax (bisacodyl)) aftr mom give on day 5
calcium carbonate (Tums) 200 mg PO Q8HPRN PRN gerd 03/09/25
cyclobenzaprine 5 mg tablet 7.5 mg PO HS spasms 03/09/25
cyclobenzaprine 5 mg tablet 7.5 mg PO TIDPRN PRN spasms 03/09/25
dabigatran etexilate 150 mg 150 mg PO BID a-fib 03/09/25
capsule (Pradaxa)
levothyroxine 100 mcg tablet 100 mcg PO DAILY hypothyroidism 03/09/25
magnesium hydroxide 400 mg/5 mL 2,400 mg PO DAILYPRN PRN if no bm 03/09/25
oral suspension (Milk of Magnesia) by 3rd day give on day 4
sennosides 8.6 mg-docusate sodium 1 tab PO BID Constipation 03/09/25
50 mg tablet (Senna Plus)
sodium phosphates 19 gram-7 118 ml NC DAILYPRN PRN if no bm 03/09/25
gram/118 mL enema (Fleet Enema) aftr dulcolax give on day 6
metoprolol succinate 100 mg 100 mg PO DAILY #30 tabs 03/11/25
tablet,extended release 24 hr
metoprolol succinate 50 mg 50 mg PO HS #30 tabs 03/11/25
tablet,extended release 24 hr
Magnesium Biglycinate 400 mg PO DAILY Supplement 03/18/25
ondansetron HCl 4 mg tablet 4 mg PO Q8HPRN PRN nausea/vomiting 03/18/25
sodium chloride 1,000 mg soluble 1,000 mg PO BID Supplement 03/18/25
tablet
levetiracetam 500 mg tablet 1,000 mg PO BID Seizures 03/24/25
--- NOTE | 2025-03-26 16:47 | PTCARENOTE ---
Pt resting comfortably at this time.
[2025-03-26] MEDS: STERILE WATER FOR INJECTION IV (17:24)
[2025-03-26] MEDS: PROCARDIA XL (EXTENDED RELEASE) 30 MG PO (17:36)
[2025-03-26] MEDS: ELIQUIS 2.5 MG PO (20:57)
[2025-03-26] MEDS: KEPPRA 500 MG IV (20:58)
[2025-03-26] MEDS: ACTIGALL 600 MG PO (22:00)
[2025-03-26] MEDS: LIPITOR 80 MG PO (22:00)
[2025-03-26] MEDS: TOPROL XL PO (22:02)
[2025-03-26] MEDS: SINEMET CR 50/200 (EXTENDED RELEASE) 1 TABLET PO (23:50)
[2025-03-27] VITALS (15 sets, daily range): BP systolic 99–136; BP diastolic 40–97; PULSE 70; O2SAT 94; BMI 23.7
--- NOTE | 2025-03-27 05:23 | PTCARENOTE ---
Pt appearing to get sleep over night. Respirations even unlabored. No witnessed seizures. NIH maintain at 3.
[2025-03-27] MEDS: SYNTHROID 100 MCG PO (06:10)
--- NOTE | 2025-03-27 08:52 | PTCARENOTE ---
Patient received from mold shifter. Patient resting comfortably in bed. AAO, VSS. No events noted overnight. No complaints of pain at this time. Currently on room air. Seizure protocol, no activity noted at this time. NIH was a 4 this AM,
neuro check completed. No tests scheduled at this time. Call lopez in reach.
[2025-03-27] MEDS: DIOVAN 80 MG PO (10:05)
[2025-03-27] MEDS: ACTIGALL 300 MG PO (10:05)
[2025-03-27] MEDS: KEPPRA 500 MG IV (10:06)
[2025-03-27] MEDS: IMDUR (EXTENDED RELEASE) 60 MG PO (10:06)
[2025-03-27] MEDS: ELIQUIS 2.5 MG PO ×2 (10:06→20:10)
[2025-03-27] MEDS: OSCAL CAL 500 500 MG PO (10:08)
[2025-03-27] MEDS: SENOKOT-S 1 TABLET PO ×2 (10:08→20:10)
[2025-03-27] MEDS: PROTONIX 20 MG PO ×2 (10:08→20:10)
[2025-03-27] MEDS: SINEMET 25-100 1 TABLET PO ×4 (10:09→21:33)
[2025-03-27] MEDS: TIKOSYN 250 MCG PO ×2 (10:09→20:09)
[2025-03-27] MEDS: SODIUM CHLORIDE 1 GRAM PO ×2 (10:09→20:09)
[2025-03-27] MEDS: TOPROL XL 100 MG PO (10:10)
[2025-03-27] MEDS: DEPACON 57.5 MG IV (10:11)
[2025-03-27] MEDS: VITAMIN D3 (cholecalciferol) 50 MCG PO (10:11)
[2025-03-27] MEDS: VITAMIN B-12 1000 MCG PO (10:11)
--- NOTE | 2025-03-27 14:36 | W.PN.HOSP.TC ---
Addendum entered and electronically signed by Raphael Jennings MD 03/28/25 15:12:
Facility denied transfer pending documented bowel movement.
Doculax ordered.
Original Note:
Today's Communication/Plan
-
Remains seizure free over the last 48 hours.
Mental status back to baseline.
Discharge back to [facility] for rehab.
Assessment / Plan
Assessment / Plan
Impression
Breakthrough generalized seizure.
Metabolic encephalopathy secondary to above possibly prolonged postictal state
Initial concern for sepsis ruled out
Leukocytosis resolved.
Non-MN troponin elevation
Conditions prior to admission
Recent hospitalization for urinary tract infection
Parkinson's disease baseline chronic hyponatremia
Persistent atrial fibrillation
Anticoagulation with Pradaxa
Dyslipidemia
Hypothyroidism
Primary biliary cirrhosis
Underweight with BMI of 24
Plan:
Breakthrough generalized seizure.
Remains encephalopathic with confusion and disorientation.
Exam with no focal findings.
Repeat CT scan of the head on 03/22 with no acute abnormalities
Recent MRI of the brain on 03/19 with possible tiny infarcts, although less likely
EEG pending.
Adjusting antiepileptic regimen:
� Decreasing Keppra to 500 every 12 hours
� Increasing valproic acid to 750 mg every 12 hours
Concern for acute ischemic CVA
Follow-up MRI on 03/25:
1. TINY ACUTE ISCHEMIC INFARCTS in the cortical [place] matter of the anterolateral left frontal lobe and medial right parietal lobe which appear new from 03/20/2025.
2. Multiple small to moderate-sized chronic transcortical ischemic infarcts in the frontal and parietal lobes.
3. VERY SEVERE WHITE MATTER LEUKOARAIOSIS in the frontal lobes, parietal lobes, internal capsules, and external capsules bilaterally.
4. 3.7 mm chronic lacunar infarct in the left thalamus.
5. Moderate diffuse cerebral and cerebellar volume loss.
6. Tiny chronic intraparenchymal microhemorrhages in the left parietal lobe and right cerebellar hemisphere.
7. 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 Moderate spinal cord compression and central canal stenosis at C4/C5 and C5/C6.
Patient with atrial fibrillation has been on Pradaxa
Update echocardiogram with no evidence of cardioembolic source. Patient and family indicated not to pursue invasive studies including MARIS
Transition anticoagulation from Pradaxa to Eliquis on 03/26
Cervical spine DJD
MRI findings with multilevel DJD
1. MODERATE to SEVERE SPINAL CORD COMPRESSION and CENTRAL CANAL STENOSIS at C4/C5 secondary to a large left central disc-osteophyte complex. Moderate to severe discogenic degenerative disease at C4/C5.
2. Moderate spinal cord compression and central canal stenosis at C5/C6 secondary to a large disc-osteophyte complex. Severe left neural foraminal narrowing and severe discogenic degenerative disease at C5/C6.
3. Severe left-sided facet joint arthrosis at C3/C4. Mild spinal cord compression, mild central canal stenosis, and severe left neural foraminal narrowing at C3/C4.
4. Chronic superior endplate compression fractures of T1 and T2 with mild loss of vertebral body height.
5. Moderate diffuse cerebral and cerebellar volume loss.
6. 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
7. 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
In discussion with patient and patient's daughter they would not consider any surgical intervention at this point.
Parkinson's disease
Continue Sinemet
Primary biliary cirrhosis.
Undetectable ammonia level.
Currently compensated
Continue ursodiol
Recent UTI. Completed course of antibiotics.
Concern for sepsis upon admission given elevated white count baseline repeated urine culture with no growth. Sepsis ruled out
Blood cultures negative to date.
Afebrile.
Offers no new complaints.
Initiated on ceftriaxone. Hold further antibiotics and monitor closely
Persistent atrial fibrillation.
Rate controlled with Tikosyn, metoprolol.
No known history of CHF or CAD.Recent echocardiogram with preserved biventricular function and no regional wall motion abnormalities.
Essential hypertension
Preadmission regimen including metoprolol, nifedipine, Imdur, valsartan. Monitor hemodynamics and renal function. Check for orthostasis.
Continue statin
Hypothyroidism on replacement
Anticipated Discharge: Today
Subjective/Interval History
-
Date of Service: March 27, 2025
Objective Data
-
Vital Signs:
Vital Signs
Temp Pulse Resp BP Pulse Ox
98.5 F 72 18 136/67 99
03/27/25 11:11 03/27/25 10:10 03/27/25 06:00 03/27/25 10:10 03/27/25 09:00
I&O
03/26/25 03/27/25 03/28/25
06:59 06:59 06:59
Intake Total 735 / 735 240 / 240
Output Total 700 / 700 750 / 750
Balance 35 / 35 -510 / -510
Physical Exam
-
General: Well Developed and No Apparent Distress
HEENT: Normocephalic, Atraumatic and Moist Mucous Membranes
Respiratory: Clear to Auscultation
Cardiac: Regular Rhythm and S1/S2; Negative Murmur, Rub or Gallop
GI: Soft, Nontender, Nondistended and Normal Bowel Sounds; Negative Organomegaly
Rectal: Deferred by Provider
Musculoskeletal: No Clubbing, No Cyanosis and No Edema
Skin: Negative Rash
Neuro: Awake, Alert and Nonfocal/Grossly Intact; Negative Oriented (Disoriented)
--- NOTE | 2025-03-27 15:36 | CM ---
F/U: RN stated that patient is advancing to [facility] so send updates to [facility] (daughter is paying for bed hold there) and Case Management will follow up. PLAN: To [facility] for SNF.
[2025-03-27] MEDS: STERILE WATER FOR INJECTION IV (18:16)
[2025-03-27] MEDS: PROCARDIA XL (EXTENDED RELEASE) 30 MG PO (18:23)
[2025-03-27] MEDS: KEPPRA 500 MG PO (20:10)
[2025-03-27] MEDS: DEPAKOTE (12 HR RELEASE) 750 MG PO (20:10)
[2025-03-27] MEDS: TOPROL XL 50 MG PO (21:33)
[2025-03-27] MEDS: ACTIGALL 600 MG PO (21:33)
[2025-03-27] MEDS: LIPITOR 80 MG PO (21:33)
[2025-03-28] VITALS (19 sets, daily range): BP systolic 89–124; BP diastolic 29–69; PULSE 69–70; BMI 24.0
[2025-03-28] MEDS: SINEMET CR 50/200 (EXTENDED RELEASE) 1 TABLET PO ×2 (00:25→23:48)
--- NOTE | 2025-03-28 03:12 | PTCARENOTE ---
Assumed care of pt from dayshift RN after change of shift report. NIH assessed at a 3, see worklist. neuro checks maintained. no seizure activity noted. assessment as documented. call light in reach. safe environment maintained.
[2025-03-28] MEDS: SYNTHROID 100 MCG PO (05:41)
[2025-03-28] MEDS: OSCAL CAL 500 500 MG PO (10:45)
[2025-03-28] MEDS: SINEMET 25-100 1 TABLET PO ×4 (10:46→21:59)
[2025-03-28] MEDS: ELIQUIS 2.5 MG PO ×2 (10:46→20:47)
[2025-03-28] MEDS: VITAMIN B-12 1000 MCG PO (10:46)
[2025-03-28] MEDS: TOPROL XL 100 MG PO (10:47)
[2025-03-28] MEDS: TIKOSYN 250 MCG PO ×2 (10:48→20:48)
[2025-03-28] MEDS: SODIUM CHLORIDE 1 GRAM PO ×2 (10:49→20:48)
[2025-03-28] MEDS: SENOKOT-S 1 TABLET PO ×2 (10:50→20:47)
[2025-03-28] MEDS: DEPAKOTE (12 HR RELEASE) 750 MG PO ×2 (10:55→20:47)
[2025-03-28] MEDS: KEPPRA 500 MG PO ×2 (10:56→20:48)
[2025-03-28] MEDS: ACTIGALL 300 MG PO (10:56)
[2025-03-28] MEDS: VITAMIN D3 (cholecalciferol) 50 MCG PO (10:59)
[2025-03-28] MEDS: DIOVAN 80 MG PO (10:59)
[2025-03-28] MEDS: IMDUR (EXTENDED RELEASE) 60 MG PO (10:59)
[2025-03-28] MEDS: PROTONIX 20 MG PO ×2 (10:59→20:48)
--- NOTE | 2025-03-28 11:35 | PTCARENOTE ---
Assumed care of pt at 0700. Upon assessment, NIH done with score of 3. No change from previous assessment. Pt very confused to time and place. A paced on monitor. Vitals stable. Pt was incontinent of large amount of urine. Pt removed purewick. Pt
given all morning medications with breakfast and applesauce. Pt takes pills slow but did take them all. Family at bedside.
--- NOTE | 2025-03-28 13:07 | CM ---
Addendum entered by Holly Olsen 03/28/25 16:00:
Auth received from Florecita at [facility], 5 days skilled, [id number] 03/28/25 to 04/01/25, NRD 04/01/25, phone [phone], Ambulance Auth is [id number].
[facility] Skilled
Report [id number]

Original Note:
Chart reviewed and per physician patient is stable for discharge to skilled facility today, call placed to patient's insurance for Auth, bed is available at [facility] today.
Plan; Skilled placement at [facility] waiting on Auth.
--- NOTE | 2025-03-28 13:34 | W.DS.TRANS ---
DC Summary - Managed Care Manager
-
Discharge Instructions:
Discharge Diagnosis/Procedures Seizure disorder
Acute CVA
Diet Regular
Instructions:
Stand-Alone Forms:
Changes to Home Medications: Yes
Discharge Medications:
DC Medications w/original date entered in [employer]
ursodiol 300 mg capsule 600 mg PO HS Gastrointestinal Issue 01/23/17
isosorbide mononitrate 60 mg tablet,extended release 24 hr 60 mg PO DAILY Heart Disease/Condition 05/18/22
cholecalciferol (vitamin D3) 50 mcg (2,000 unit) capsule (Vitamin D3) 50 mcg PO DAILY Supplement 06/21/23
calcium carbonate 500 mg PO DAILY Supplement 12/07/23
pantoprazole 20 mg tablet,delayed release (Protonix) 20 mg PO BID Gastrointestinal Issue 02/09/24
dofetilide 250 mcg capsule 250 mcg PO BID Arrhythmia 02/16/24
valsartan 80 mg tablet 80 mg PO DAILY Blood Pressure 06/29/24
carbidopa 25 mg-levodopa 100 mg tablet (Sinemet) 1 tab PO QID parkinson's disease 11/08/24
acetaminophen 325 mg tablet 650 mg PO Q4HPRN PRN mild pain/MCGHEE/temp> 100F 11/18/24
nifedipine 30 mg tablet,extended release 24 hr 30 mg PO QPM Blood Pressure 11/18/24
carbidopa ER 50 mg-levodopa 200 mg tablet,extended release 1 tab PO DAILY@0000 parkinson's disease 02/13/25
cyanocobalamin (vitamin B-12) 1,000 mcg tablet (Vitamin B-12) 1,000 mcg PO DAILY Supplement 02/13/25
ursodiol 300 mg capsule 300 mg PO DAILY Gastrointestinal Issue 02/13/25
atorvastatin 80 mg tablet 80 mg PO HS cholesterol 03/09/25
bisacodyl 10 mg rectal suppository (Dulcolax (bisacodyl)) 10 mg DE DAILYPRN PRN if no bm aftr mom give on day 5 03/09/25
calcium carbonate (Tums) 200 mg PO Q8HPRN PRN gerd 03/09/25
levothyroxine 100 mcg tablet 100 mcg PO DAILY hypothyroidism 03/09/25
magnesium hydroxide 400 mg/5 mL oral suspension (Milk of Magnesia) 2,400 mg PO DAILYPRN PRN if no bm by 3rd day give on day 4 03/09/25
sennosides 8.6 mg-docusate sodium 50 mg tablet (Senna Plus) 1 tab PO BID Constipation 03/09/25
metoprolol succinate 100 mg tablet,extended release 24 hr 100 mg PO DAILY #30 tabs 03/11/25
metoprolol succinate 50 mg tablet,extended release 24 hr 50 mg PO HS #30 tabs 03/11/25
Magnesium Biglycinate 400 mg PO DAILY Supplement 03/18/25
sodium chloride 1,000 mg soluble tablet 1,000 mg PO BID Supplement 03/18/25
apixaban 2.5 mg tablet (Eliquis) 2.5 mg PO BID #60 tabs 03/28/25
divalproex 250 mg tablet,delayed release 750 mg (3 x 250 mg) PO BID #120 tabs 03/28/25
levetiracetam 500 mg tablet 500 mg PO BID #60 tabs 03/28/25
Home Medication Changes
Depakote initiated
Keppra reduced
Anticoagulation transition of Pradaxa to Eliquis
Pending Results: No
[2025-03-28] MEDS: DULCOLAX 10 MG RECTAL (15:48)
[2025-03-28] MEDS: PROCARDIA XL (EXTENDED RELEASE) 30 MG PO (18:11)
--- NOTE | 2025-03-28 19:21 | PTCARENOTE ---
Pt with no documented BM since admission. Will go to [facility] tomorrow. Suppository ordered and given. No results as of now. PRN milk of mag still avail to give. Passed on to nightshift.
[2025-03-28] MEDS: LIPITOR 80 MG PO (21:59)
[2025-03-28] MEDS: MILK OF MAGNESIA 30 ML PO (21:59)
[2025-03-28] MEDS: ACTIGALL 600 MG PO (21:59)
[2025-03-28] MEDS: TOPROL XL PO (22:03)
--- NOTE | 2025-03-28 22:17 | PTCARENOTE ---
Assumed care of Pt from dayshift RN after change of shift report. Pt granddaughter at bedside. pt is alert to self. confused. not making current attempts to exit bed independently. bed alarm in use for pt safety. neuro checks and NIH maintained per
protocol. see work-list documentation. NIH 3. no acute changes to NIH assessment. pt took all pills HS whole with water one at a time. tolerated. No BM thus far in this RNs shift. abdomen is soft non tender and non distended, pt does not c/o
abdominal pain. bowel sounds present. pt given PO milk of mag per order in jul. assessment as documented, call light in reach. safe environment maintained.
[2025-03-29] VITALS (8 sets, daily range): BP systolic 91–141; BP diastolic 25–52; BMI 23.4
[2025-03-29] MEDS: SYNTHROID 100 MCG PO (05:07)
[2025-03-29] MEDS: DIOVAN PO (08:12)
[2025-03-29] MEDS: IMDUR (EXTENDED RELEASE) PO (08:13)
[2025-03-29] MEDS: TOPROL XL PO (08:13)
--- NOTE | 2025-03-29 08:13 | W.PN.HOSP.TC ---
Today's Communication/Plan
-
bisacodyl x1
Monitor for bowel movement
Likely discharge to SNF today
Assessment / Plan
Assessment / Plan
#Breakthrough generalized seizure
Likely associated with acute cardioembolic CVAs
Remains encephalopathic with confusion and disorientation.
Repeat CT scan of the head on 03/22 with no acute abnormalities
Recent MRI of the brain on 03/19 with possible tiny infarcts, although less likely
Continue with Keppra 500 mg every 12 hours, VPA 750 mg every 12 hours
Continue with seizure precautions
#Acute ischemic CVA
Possibly Pradaxa failure; MRI with tiny acute ischemic infarcts, multifocal, highly likely cardioembolic source
Home Pradaxa was transitioned to Eliquis here; TTE without signs of thrombi, patient's family declined MARIS
Continue with neurochecks
#Constipation
No bowel movement documented since admission
Started on docusate, bisacodyl suppository
Will provide another bisacodyl suppository
Consider AXR, enema
#Cervical spine DJD
MRI findings with multilevel DJD, moderate to severe spinal cord compression
In discussion with patient and patient's daughter they would not consider any surgical intervention at this point
Supportive management
#Parkinson's disease
Continue Sinemet
#Primary biliary cirrhosis.
Undetectable ammonia level.
Currently compensated
Continue ursodiol
#Recent UTI
Completed course of antibiotics.
Concern for sepsis upon admission given elevated white count baseline repeated urine culture with no growth. Sepsis ruled out
Blood cultures negative to date.
#Persistent atrial fibrillation.
Rate controlled with Tikosyn, metoprolol and now Eliquis
Elevated [id number], nonvalvular
#Hypothyroidism on replacement
DVT -- DOAC
Diet -- Regular
CODE -- DNR
Dispo -- [place] [facility] once bowel movement documented
Anticipated Discharge: Today
Subjective/Interval History
-
Date of Service: March 29, 2025
Seen and examined at the bedside. No acute events reported overnight. AFVSS this morning
Patient reports that she needs to have a bowel movement
Denies any other new complaints.
Objective Data
-
Vital Signs:
Vital Signs
Temp Pulse Resp BP Pulse Ox
97.7 F 70 14 104/48 92
03/29/25 03:34 03/29/25 08:02 03/29/25 08:02 03/29/25 08:02 03/29/25 08:06
I&O
03/28/25 03/29/25 03/30/25
06:59 06:59 05:59
Intake Total 640 / 640
Output Total 1155 / 1155 550 / 550
Balance -515 / -515 -550 / -550
Review of Systems
-
History Source: Patient
All other systems: Reviewed and negative
Physical Exam
-
General: Well Developed, Appears Chronically Ill and Other (Frail)
HEENT: Normocephalic, Atraumatic, Moist Mucous Membranes and Anicteric
Respiratory: Clear to Auscultation and Non Labored Respirations
Cardiac: Regular Rhythm and S1/S2; Negative Murmur, Rub or Gallop
GI: Soft, Nontender, Nondistended and Normal Bowel Sounds
Musculoskeletal: No Clubbing, No Cyanosis and No Edema
Skin: Warm and Dry; Negative Rash
Neuro: AO x 3, Nonfocal/Grossly Intact and Central Nerve's Intact; Negative Tremors
Psych: Calm
[2025-03-29] MEDS: DULCOLAX 10 MG RECTAL (08:24)
[2025-03-29] MEDS: DEPAKOTE (12 HR RELEASE) 750 MG PO (08:54)
[2025-03-29] MEDS: SINEMET 25-100 1 TABLET PO (08:54)
[2025-03-29] MEDS: SENOKOT-S 1 TABLET PO (08:54)
[2025-03-29] MEDS: KEPPRA 500 MG PO (08:54)
[2025-03-29] MEDS: ACTIGALL 300 MG PO (08:54)
[2025-03-29] MEDS: VITAMIN B-12 1000 MCG PO (08:55)
[2025-03-29] MEDS: SODIUM CHLORIDE 1 GRAM PO (08:55)
[2025-03-29] MEDS: OSCAL CAL 500 500 MG PO (08:55)
[2025-03-29] MEDS: PROTONIX 20 MG PO (08:55)
[2025-03-29] MEDS: ELIQUIS 2.5 MG PO (08:56)
[2025-03-29] MEDS: VITAMIN D3 (cholecalciferol) 50 MCG PO (08:56)
[2025-03-29] MEDS: TIKOSYN 250 MCG PO (08:56)
--- NOTE | 2025-03-29 10:54 | CM ---
Chart reviewed. Plan is for patient to d/c to [facility] following BM. Spoke w/ nurse brake repair supervisor, Delfina at [facility], aware patient is to admit today.
Per nurse, patient did have a BM this morning
Ambulance transport forms on chart
Updated patient bedside. IMM verbally reviewed, copy provided, copy on chart
[facility]
Report [id number]

Plan: D/c to [facility] today
--- NOTE | 2025-03-29 11:02 | PTCARENOTE ---
Assumed care of pt at 0700. Upon assessment, NIH done with score of 3. No change from previous assessment. Pt very confused to time and place. A paced on monitor. Vitals stable. Pt was incontinent of large amount of urine. Pt given all morning
medications with breakfast, pt takes pills slow but did take them. Pt for DC today to [facility]. Suppository given and pt did have a BM. Awaiting transport time.
--- NOTE | 2025-03-30 15:52 | W.DCSUMMARY ---
Discharge Summary
Discharge Data
Date of Admission: 03/22/25
Date of Discharge: 03/29/25
Total time spent discharging patient (in min): 31
-
Pending Results: No
Hospital Course
Discharging provider: David Wilson DO
Discharge disposition: [facility], [facility]
Primary discharge diagnoses:
Generalized seizure
Acute cardioembolic CVA
Constipation
Presumed Pradaxa failure
Mild to moderate aortic stenosis
Chronic discharge diagnoses:
Persistent AF previously on Pradaxa
Primary biliary cirrhosis on ursodiol
Cervical spine DJD
Hypothyroidism
Hospital course:
84-year-old female who was admitted to the hospital with seizure event. Underwent CT head that was unremarkable. MRI of the brain demonstrated multifocal acute infarcts likely cardioembolic event. Patient was previously on Pradaxa for atrial
fibrillation. Pradaxa was discontinued, TTE was without signs of cardiac thrombi. MARIS was offered however family declined due to the patient's frail state chronically. Was evaluated by neurology and started on Keppra for seizure maintenance
therapy. Home Pradaxa was transitioned to Eliquis with presumed Pradaxa failure. Patient was clinically stable thereafter, evaluated by physical therapy in the hospital, recommended SNF at discharge. Case management arranged for short-term rehab
at [facility].
Consultants:
Neurology� -- Miles Vuong MD
Pertinent imaging findings:
MRI brain without contrast (03/25/2025)
1. TINY ACUTE ISCHEMIC INFARCTS in the cortical [place] matter of the anterolateral left frontal lobe and medial right parietal lobe which appear new from 03/20/2025.
2. Multiple small to moderate-sized chronic transcortical ischemic infarcts in the frontal and parietal lobes.
3. VERY SEVERE WHITE MATTER LEUKOARAIOSIS in the frontal lobes, parietal lobes, internal capsules, and external capsules bilaterally.
4. 3.7 mm chronic lacunar infarct in the left thalamus.
5. Moderate diffuse cerebral and cerebellar volume loss.
6. Tiny chronic intraparenchymal microhemorrhages in the left parietal lobe and right cerebellar hemisphere.
7. 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 Moderate spinal cord compression and central canal stenosis at C4/C5 and C5/C6.
Transthoracic echocardiogram (03/26/2025)
1. Hyperdynamic LV systolic function. Estimated LVEF 70-75%.
2. Mild/moderate aortic stenosis. The peak aortic valve gradient is 18.7 mmHg. The mean aortic valve gradient is 11.0 mmHg. Using LVOT diameter of 1.8 cm, calculated LINDY is 0.9-1.0cm 2.
3. Compared to 11/19/24: no significant change.
Procedures: N/A
Follow-up:
Family doctor within 1 week
As needed follow-up with cardiology if within goals of care
Discharge Plan
-
Patient Disposition: [facility]/SNF
Discharge Diagnosis/Procedures: Seizure disorder
Acute CVA
Condition: Good
Diet: Regular
Other Services: PT and OT
Referrals:
Shellie Snell DO [Family Provider, General]
Prescriptions:
New
divalproex 250 mg Tablet,Delayed Release (Dr/Ec)
750 mg PO BID Qty: 120 0RF
levetiracetam 500 mg Tablet
500 mg PO BID Qty: 60 0RF
Eliquis 2.5 mg Tablet
2.5 mg PO BID Qty: 60 0RF
Continued
ursodiol 300 MG capsule
600 mg PO HS
isosorbide mononitrate 60 mg tablet extended release 24 hr
60 mg PO DAILY
cholecalciferol (vitamin D3) [Vitamin D3] 50 mcg (2,000 unit) Capsule
50 mcg PO DAILY
calcium carbonate 500 mg calcium (1,250 mg) Tablet
500 mg PO DAILY
pantoprazole [Protonix] 20 mg Tablet,Delayed Release (Dr/Ec)
20 mg PO BID
dofetilide 250 mcg capsule
250 mcg PO BID
valsartan 80 mg Tablet
80 mg PO DAILY
carbidopa-levodopa [Sinemet] 25-100 mg tablet
1 tab PO QID
nifedipine 30 mg Tablet Extended Release 24hr
30 mg PO QPM
acetaminophen 325 mg tablet
650 mg PO Q4HPRN PRN (Reason: mild pain/MCGHEE/temp> 100F)
ursodiol 300 mg Capsule
300 mg PO DAILY
carbidopa-levodopa 50-200 mg tablet extended release
1 tab PO DAILY@0000
cyanocobalamin (vitamin B-12) [Vitamin B-12] 1,000 mcg tablet
1,000 mcg PO DAILY
magnesium hydroxide [Milk of Magnesia] 400 mg/5 mL Suspension
2,400 mg PO DAILYPRN PRN (Reason: if no bm by 3rd day give on day 4)
bisacodyl [Dulcolax (bisacodyl)] 10 mg Suppository
10 mg SD DAILYPRN PRN (Reason: if no bm aftr mom give on day 5)
calcium carbonate [Tums] 200 mg calcium (500 mg) Tablet,Chewable
200 mg PO Q8HPRN PRN (Reason: gerd)
atorvastatin 80 mg tablet
80 mg PO HS
sennosides-docusate sodium [Senna Plus] 8.6-50 mg tablet
1 tab PO BID
levothyroxine 100 mcg tablet
100 mcg PO DAILY
metoprolol succinate 50 mg Tablet Extended Release 24 Hr
50 mg PO HS Qty: 30 0RF
metoprolol succinate 100 mg Tablet Extended Release 24 Hr
100 mg PO DAILY Qty: 30 0RF
sodium chloride 1,000 mg Tablet,Soluble
1,000 mg PO BID
Magnesium Biglycinate 100 mg tablet
400 mg PO DAILY
Discontinued
clonidine HCl 0.1 mg tablet
0.05 mg PO Q6HPRN PRN (Reason: SBP>160)
Fleet Enema 19-7 gram/118 mL Enema
118 ml SD DAILYPRN PRN (Reason: if no bm aftr dulcolax give on day 6)
cyclobenzaprine 5 mg Tablet
7.5 mg PO HS
cyclobenzaprine 5 mg Tablet
7.5 mg PO TIDPRN PRN (Reason: spasms)
dabigatran etexilate [Pradaxa] 150 MG capsule
150 mg PO BID
ondansetron HCl 4 mg Tablet
4 mg PO Q8HPRN PRN (Reason: nausea/vomiting)
levetiracetam 500 mg tablet
1,000 mg PO BID
Discharge Orders:
Discharge Patient (As Directed); Ordered 03/28/25
Ordered By: Raphael Jennings
Discharge Date and Time
Discharge Date/Time: 03/29/25 13:56
Print Language: TAJIK
--- NOTE | 2025-03-31 09:27 | PN.CDI ---
CDI
- -
CDI:
Physician Documentation Request
Admit Date: 03/22/25 20:49
Dear Doctor Michaela,
Please review the following and provide your response in the progress notes.
Clinical Indicators:
- 03/28 Manager Cath Lab note indicates moderate protein calorie malnutrition
- Unintentional weight loss > 20% in 1 year
- Nutrient intake </= 75% energy needs, >/= 1 month
Based on the above information and your assessment, which of the following most accurately represents the patient's nutritional status?
Moderate protein calorie malnutrition
Other (please specify)
[place] Criteria ([facility] Hospitalist 2017)
2 or more criteria must be present for either
non severe or severe malnutrition
Note that the criteria differs related to the
presence of an acute or chronic illness
Acute Illness Chronic Illness
Energy Intake Non Severe: <75% for >7 days Non Severe: <75% for >1 month
Severe: <50% for >5 days Severe: <75% for >1 month
Weight Loss Non Severe: 1-2% over 1 week Non Severe: 5% over 1 month
5% over 1 month 7.5% over 3 months
7.5% over 3 months 10% over 6 months
1 year N/A 20% over 1 year
Severe: >2% over 1 week Severe: >5% over 1 month
>5% over 1 month >7.5% over 3 months
>7.5% over 3 months >10% over 6 months
1 year N/A >20% over 1 year
Body Fat Non Severe: Mild Decrease Non Severe: Mild Loss
Severe: Moderate Decrease Severe: Severe Loss
Muscle Mass Non Severe: Mild Decrease Non Severe: Mild Loss
Severe: Moderate Decrease Severe: Severe Loss
Fluid Accumulation Non Severe: Mild Accumulation Non Severe: Mild Accumulation
Severe: Moderate to severe Severe: Moderate to severe
accumulation accumulation
Reduced Color Shop Helper Strength Non Severe: N/A Non Severe: N/A
Severe: Measurably reduced Severe: Measurably reduced
Additional criteria that can be used to Determine if Mild or Moderate Malnutrition ([employer] Manual 2018)
Mild Moderate Severe
Albumin gm/dl <3.0 gm/dl <2.5 gm/dl <2.0 gm/dl
Pre Albumin mg/dl <15 gm/dl <10 mg/dl <5.0 mg/dl
BMI <18.5 <17 <16
Use of terms such as suspected, likely, concern for, or probable (associated with a specific diagnosis that is being evaluated, monitored, or treated as if it exists) are acceptable and can be coded in the inpatient setting, when documented at the
time of discharge.
Thank you,
Phoenix Lawrence RN
CDI Specialist
Please use your independent medical judgment in providing your response.
== END 2025-03-29 13:56 | DRG 100 ==
LOC: IMU 20:49
PROVIDERS: Clinical Nurse Specialist Family Health; ADMITTING PHYSICIAN Internal Medicine; ATTENDING PHYSICIAN Internal Medicine; CONSULT PHYSICIAN Psychiatry & Neurology Neurology; EMERGENCY PHYSICIAN Student in an Organized Health Care Education/Training Program; FAMILY PHYSICIAN Family Medicine
DX: G40.909 Epilepsy, unspecified, not intractable, without status epilepticus (principal); G93.41 Metabolic encephalopathy; I63.40 Cerebral infarction due to embolism of unspecified cerebral artery; E87.1 Hypo-osmolality and hyponatremia; I48.19 Other persistent atrial fibrillation; E87.20 Acidosis, unspecified; M50.021 Cervical disc disorder at C4-C5 level with myelopathy; M50.022 Cervical disc disorder at C5-C6 level with myelopathy; I5A Non-ischemic myocardial injury (non-traumatic); G20.A1 Parkinson's disease without dyskinesia, without mention of fluctuations; I10 Essential (primary) hypertension; R09.02 Hypoxemia; E03.9 Hypothyroidism, unspecified; E78.00 Pure hypercholesterolemia, unspecified; I25.10 Atherosclerotic heart disease of native coronary artery without angina pectoris; K21.9 Gastro-esophageal reflux disease without esophagitis; R33.9 Retention of urine, unspecified; G25.81 Restless legs syndrome; N30.90 Cystitis, unspecified without hematuria; D72.829 Elevated white blood cell count, unspecified; M50.10 Cervical disc disorder with radiculopathy, unspecified cervical region; I73.9 Peripheral vascular disease, unspecified; K44.9 Diaphragmatic hernia without obstruction or gangrene; H54.61 Unqualified visual loss, right eye, normal vision left eye; D63.8 Anemia in other chronic diseases classified elsewhere; M85.80 Other specified disorders of bone density and structure, unspecified site; I08.0 Rheumatic disorders of both mitral and aortic valves; J44.9 Chronic obstructive pulmonary disease, unspecified; I65.21 Occlusion and stenosis of right carotid artery; K74.3 Primary biliary cirrhosis; N32.81 Overactive bladder; M54.31 Sciatica, right side; R54 Age-related physical debility; R63.6 Underweight; M47.812 Spondylosis without myelopathy or radiculopathy, cervical region; K59.00 Constipation, unspecified; F91.9 Conduct disorder, unspecified; M48.02 Spinal stenosis, cervical region; Z66 Do not resuscitate; Z60.2 Problems related to living alone; I69.398 Other sequelae of cerebral infarction; Z85.3 Personal history of malignant neoplasm of breast; Z95.0 Presence of cardiac pacemaker; Z90.12 Acquired absence of left breast and nipple; Z87.891 Personal history of nicotine dependence; Z95.5 Presence of coronary angioplasty implant and graft; Z95.828 Presence of other vascular implants and grafts; Z91.041 Radiographic dye allergy status; Z79.890 Hormone replacement therapy; Z68.24 Body mass index [BMI] 24.0-24.9, adult; Z79.01 Long term (current) use of anticoagulants; Z79.899 Other long term (current) drug therapy; Z86.16 Personal history of COVID-19; Z86.0100 Personal history of colon polyps, unspecified; Z87.01 Personal history of pneumonia (recurrent); Z85.828 Personal history of other malignant neoplasm of skin; Z98.41 Cataract extraction status, right eye; Z98.42 Cataract extraction status, left eye; Z90.49 Acquired absence of other specified parts of digestive tract; Z98.51 Tubal ligation status; Z88.8 Allergy status to other drugs, medicaments and biological substances; Z91.048 Other nonmedicinal substance allergy status; Z82.0 Family history of epilepsy and other diseases of the nervous system; Z81.8 Family history of other mental and behavioral disorders
CPT/HCPCS: 70450; 70553; 71045; 72141; 74176; 80053; 80177; 81003; 81015; 82550; 82962; 83605; 83735; 84146; 84439; 84443; 84484; 85025; 87040; 87070; 87086; 93005; 93308; 96361; 96374; 96375; 97110; 97163; 97167; 97530; 97535; 99291; A9575; J3480

== ENCOUNTER → 2025-03-31 12:10 | Outpatient (REF) | payer OTHER, SELFPAY ==
[2025-03-31 12:50] LABS: Hematocrit 30.3 % (37.0-47.0); Hemoglobin 9.7 g/dL (12.0-16.0); Mean Corp Hgb Conc. 32.0 g/dL (33.0-37.0); Mean Corpuscular Volume 91.0 fL (81.0-99.0); Nucleated Red Blood Cells % 0 %; Platelet Count 210 10^3/uL (130-400); Red Cell Dist. Width 15.6 % (11.5-14.5)
[2025-03-31 12:56] LABS: Blood Urea Nitrogen 15 mg/dl (7-17); Calcium 8.9 mg/dl (8.4-10.2); Carbon Dioxide 28 mmol/L (22-30); Chloride 99 mmol/L (98-107); Glucose 69 mg/dl (70-99); Potassium 4.3 mmol/L (3.5-5.1); Sodium 135 mmol/L (135-145); eGFR > 60.00
== END ==
LOC: OLABP 12:10
PROVIDERS: ATTENDING PHYSICIAN Family Medicine
DX: I10 Essential (primary) hypertension (principal); I25.119 Atherosclerotic heart disease of native coronary artery with unspecified angina pectoris; I49.5 Sick sinus syndrome; Z86.73 Personal history of transient ischemic attack (TIA), and cerebral infarction without residual deficits; Z95.0 Presence of cardiac pacemaker; G20.C Parkinsonism, unspecified; E78.1 Pure hyperglyceridemia; K74.5 Biliary cirrhosis, unspecified; D64.9 Anemia, unspecified
CPT/HCPCS: 36415; 80048; 85025